=== PATIENT | male | born 1950 | race Hispanic/Latino ===

== ENCOUNTER 2019-02-05 18:01 | Inpatient (IN) | payer MEDICARE ==
--- NOTE | 2019-02-05 18:12 | Emergency Department Report ---
ED Neuro Deficit HPI - General Chief Complaint: Neuro Symptoms/Deficit Stated Complaint: CODE STROKE Time Seen by Provider: 02/05/19 18:01 Source: patient, family, EMS Mode of arrival: Stretcher Limitations: Altered Mental Status - History of Present Illness Initial Comments: Patient is a 68-year-old male that presents emergency room with complaints of confusion and slurred speech. Patient was found in his neighbor's yard down and Police Department called EMS. EMS brought the patient the emergency room for evaluation. Patient alert and oriented 1. Patient states he came to the hospital because of a fall. Patient states he is feeling fine. Patient denies headache. Patient denies shortness of breath or patient denies chest pain. Patient denies change in his speech. Sister states that he is speech is more slurred than usual. Patient moving all 4 extremities. -: Sudden Presenting Symptoms: Present: Unable to Speak Clearly, Altered Mental Status History of same: No Place: home Severity: severe Improves With: none Worsens With: none On Anticoagulants: No Context: sudden onset Associated Symptoms: confusion - Related Data Home Medications: Previous Rx's Medication Instructions Recorded Last Taken Type Bacitracin/Polymixin B [Polysporin] 1 applicatio TP BID #1 tube 01/21/16 Unknown Rx Ibuprofen [Motrin 600 MG tab] 600 mg PO Q8H PRN #25 tablet 01/21/16 Unknown Rx levoFLOXacin [Levaquin TAB] 500 mg PO QDAY #5 tablet 02/17/18 Unknown Rx Allergies/Adverse Reactions: Allergies Allergy/AdvReac Type Severity Reaction Status Date / Time No Known Allergies Allergy Verified 01/21/16 10:17 ED Review of Systems ROS: Stated complaint: CODE STROKE Other details as noted in HPI Constitutional: denies: chills, fever Eyes: denies: eye pain, eye discharge, vision change ENT: denies: ear pain, throat pain Respiratory: denies: cough, shortness of breath, wheezing Cardiovascular: denies: chest pain, palpitations Endocrine: no symptoms reported Gastrointestinal: denies: abdominal pain, nausea, diarrhea Genitourinary: denies: urgency, dysuria Musculoskeletal: denies: back pain, joint swelling, arthralgia Skin: denies: rash, lesions Neurological: denies: headache, weakness, paresthesias Psychiatric: denies: anxiety, depression Hematological/Lymphatic: denies: easy bleeding, easy bruising ED Past Medical Hx - Past Medical History Previous Medical History?: Yes Hx Hypertension: Yes Hx Diabetes: Yes - Surgical History Past Surgical History?: Yes Additional Surgical History: leg surgery - Family History Family history: no significant - Social History Smoking Status: Never Smoker Substance Use Type: None - Medications Home Medications: Home Medications Medication Instructions Recorded Confirmed Last Taken Type Bacitracin/Polymixin B [Polysporin] 1 applicatio TP BID #1 tube 01/21/16 Un known Rx Ibuprofen [Motrin 600 MG tab] 600 mg PO Q8H PRN #25 tablet 01/21/16 Unknown Rx levoFLOXacin [Levaquin TAB] 500 mg PO QDAY #5 tablet 02/17/18 Unknown Rx ED Neuro Physical Exam - General Limitations: Altered Mental Status General appearance: alert, in no apparent distress Suspected Stroke: No - Head Head exam: Present: atraumatic, normocephalic - Eye Eye exam: Present: normal appearance, PERRL Pupils: Present: normal accommodation - ENT ENT exam: Present: mucous membranes dry, other (abrasion on nose) - Neck Neck exam: Present: normal inspection - Respiratory Respiratory exam: Present: normal lung sounds bilaterally. Absent: respiratory distress, wheezes, rales - Cardiovascular Cardiovascular Exam: Present: regular rate, normal rhythm. Absent: systolic murmur, diastolic murmur, rubs, gallop - GI/Abdominal GI/Abdominal exam: Present: soft, normal bowel sounds. Absent: distended, tenderness, guarding - Rectal Rectal exam: Present: deferred - Extremities Exam Extremities exam: Present: normal inspection, full ROM - Back Exam Back exam: Present: normal inspection - Neurological Exam Neurological exam: Present: alert, altered - NIHSS Assessment Interval: Baseline 1a. Level of Consciousness: alert/keenly responsive 1b. LOC Questions: answers 1 question correctly 1c. LOC Commands: performs tasks correctly 2. Best Gaze: normal 3. Visual: no visual loss 4. Facial Palsy: normal symmetrical movement 5b. Motor Arm Right: no drift 5a. Motor Arm Left: no drift 6a. Motor Leg Left: no drift 6b. Motor Leg Right: no drift 7. Limb Ataxia: absent 8. Sensory: normal 9. Best Language: no aphasia 10. Dysarthria: normal 11. Extinction/Inattention: no abnormality Total Score: 1 Stroke Severity: Minor Stroke - Psychiatric Psychiatric exam: Present: normal affect, normal mood - Skin Skin exam: Present: warm, dry, intact, normal color. Absent: rash ED Course Vital Signs 02/05/19 02/05/19 02/05/19 18:34 18:37 20:00 Temperature 98.8 F Pulse Rate 74 71 Respiratory 15 15 15 Rate Blood Pressure 207/83 Blood Pressure 198/80 [Left] O2 Sat by Pulse 100 100 95 Oximetry 02/05/19 21:30 Temperature Pulse Rate 76 Respiratory 10 L Rate Blood Pressure 183/90 Blood Pressure [Left] O2 Sat by Pulse 97 Oximetry - Reevaluation(s) Reevaluation #1: Initial evaluation done. Patient sent immediately to CT. Code stroke initia sunday. 02/05/19 18:01 Reevaluation #2: Patient is currently oriented 2. Patient is disoriented to date. 02/05/19 18:50 Reevaluation #3: I discussed all results the patient. Discussed plan of care patient. Patient will be admitted to the hospitalist service. Patient agrees with plan of care and admission. 02/05/19 19:40 - Consultations Consultation #1: Neurologist saw the patient. 02/05/19 18:10 Neurologist recommends admission for encephalopathy and confusion. 02/05/19 18:40 Consultation #2: Hospitalist was consulted for admission. Hospitalist to admit patient. 02/05/19 19:40 - Lab Data Result diagrams: 02/05/19 18:25 02/05/19 18:25 Lab Results 02/05/19 02/05/19 02/05/19 Range/Units 18:25 18:25 18:25 WBC 12.0 H (4.5-11.0) K/mm3 RBC 4.31 (3.65-5.03) M/mm3 Hgb 12.6 (11.8-15.2) gm/dl Hct 36.6 (35.5-45.6) % MCV 85 (84-94) fl MCH 29 (28-32) pg MCHC 34 (32-34) % RDW 14.5 (13.2-15.2) % Plt Count 339 (140-440) K/mm3 Lymph % (Auto) 12.6 L (13.4-35.0) % Will % (Auto) 5.8 (0.0-7.3) % Eos % (Auto) 2.7 (0.0-4.3) % Baso % (Auto) 0.8 (0.0-1.8) % Lymph # 1.5 (1.2-5.4) K/mm3 Will # 0.7 (0.0-0.8) K/mm3 Eos # 0.3 (0.0-0.4) K/mm3 Baso # 0.1 (0.0-0.1) K/mm3 Seg Neutrophils % 78.1 H (40.0-70.0) % Seg Neutrophils # 9.4 H (1.8-7.7) K/mm3 PT 12.4 (12.2-14.9) Sec. INR 0.92 (0.87-1.13) APTT 26.8 (24.2-36.6) Sec. Thrombin Time (15.1-19.6) Sec. Sodium 138 (137-145) mmol/L Potassium 4.6 (3.6-5.0) mmol/L Chloride 100.6 (98-107) mmol/L Carbon Dioxide 23 (22-30) mmol/L Anion Gap 19 mmol/L BUN 25 H (9-20) mg/dL Creatinine 1.3 (0.8-1.5) mg/dL Estimated GFR 55 ml/min BUN/Creatinine Ratio 19 % Glucose 148 H (75-100) mg/dL POC Glucose (70-105) Calcium 9.7 (8.4-10.2) mg/dL Troponin T 0.011 (0.00-0.029) ng/mL 02/05/19 02/05/19 Range/Units 18:25 18:49 WBC (4.5-11.0) K/mm3 RBC (3.65-5.03) M/mm3 Hgb (11.8-15.2) gm/dl Hct (35.5-45.6) % MCV (84-94) fl MCH (28-32) pg MCHC (32-34) % RDW (13.2-15.2) % Plt Count (140-440) K/mm3 Lymph % (Auto) (13.4-35.0) % Will % (Auto) (0.0-7.3) % Eos % (Auto) (0.0-4.3) % Baso % (Auto) (0.0-1.8) % Lymph # (1.2-5.4) K/mm3 Will # (0.0-0.8) K/mm3 Eos # (0.0-0.4) K/mm3 Baso # (0.0-0.1) K/mm3 Seg Neutrophils % (40.0-70.0) % Seg Neutrophils # (1.8-7.7) K/mm3 PT (12.2-14.9) Sec. INR (0.87-1.13) APTT (24.2-36.6) Sec. Thrombin Time 14.2 L (15.1-19.6) Sec. Sodium (137-145) mmol/L Potassium (3.6-5.0) mmol/L Chloride (98-107) mmol/L Carbon Dioxide (22-30) mmol/L Anion Gap mmol/L BUN (9-20) mg/dL Creatinine (0.8-1.5) mg/dL Estimated GFR ml/min BUN/Creatinine Ratio % Glucose (75-100) mg/dL POC Glucose 128 H (70-105) Calcium (8.4-10.2) mg/dL Troponin T (0.00-0.029) ng/mL - EKG Data -: EKG Interpreted by Nm EKG shows normal: sinus rhythm, axis, intervals, QRS complexes, ST-T waves Rate: normal - Radiology Data Radiology results: report reviewed No acute findings on head CT. - Medical Decision Making Patient is a 68-year-old male that presents emergency room with complaints of altered mental status, confusion and fall and slurred speech. Patient was brought in by EMS and code stroke was initiated prior to arrival. Neurology saw the patient. Neurology states the patient does not require TPA. Neurology recommends admission for encephalopathy. Patient's labs unremarkable except for dehydration. Patient CT is negative for acute findings. Patient admitted to the hospitalist service. - Differential Diagnosis fall. Head injury. Abrasion. CVA. Confusion. AMS. Critical Care Time: Yes Critical care time in (mins) excluding proc time.: 35 Critical care attestation.: If time is entered above; I have spent that time in minutes in the direct care of this critically ill patient, excluding procedure time. Critical Care Time: 35 minutes ED Disposition Clinical Impression: Acute encephalopathy, Dehydration Altered mental status Qualifiers: Altered mental status type: unspecified Qualified Code(s): R41.82 - Altered mental status, unspecified Fall Qualifiers: Encounter type: initial encounter Qualified Code(s): W19.XXXA - Unspecified fall, initial encounter Nose abrasion Qualifiers: Encounter type: initial encounter Qualified Code(s): S00.31XA - Abrasion of nose, initial encounter Disposition: DC-09 OP ADMIT IP TO THIS HOSP Is pt being admited?: Yes Does the pt Need Aspirin: No Condition: Critical Time of Disposition: 19:42
--- NOTE | 2019-02-05 18:21 | Progress Note ---
Subjective Date of service: 02/05/19 Interval history: per stroke aslert made com,ments about CT and spoke to EMS see my dictated note recommend full TIA/Stroke w/u as hx of HTN and diabtes
--- NOTE | 2019-02-05 18:24 | Consultation ---
History of Present Illness History of present illness: [facility] Date of Service: 02/05/2019 18:04:20 Impression: RO Acute Ischemic Stroke AMS Comments: 1. Cardioembolic stroke 2. Small vessel disease/lacune 3. Thromboembolic, [id number] mechanism 4. Hypercoagulable state-related infarct 5. Thrombotic mechanism, large artery disease 6. Transient ischemic attack 7. Acute encephalopathy Metrics: Last Known Well: 02/05/2019 17:00:00 [facility] Notification Time: 02/05/2019 18:03:18 Arrival Time: 02/05/2019 18:01:00 Stamp Time: 02/05/2019 18:04:20 Time First Login Attempt: 02/05/2019 18:09:37 Video Start Time: 02/05/2019 18:09:37 Symptoms: AMS NIHSS Start Assessment Time: 02/05/2019 18:13:09 Patient is not a candidate for tPA. Patient was not deemed candidate for tPA thrombolytics because of I discussed the risk and benefits and alternatives to IV TPA and the patient's sister declined IV TPA at this time given the broad differential that could cause AMS. Video End Time: 02/05/2019 18:21:53 CT head was reviewed. Advanced imaging was not obtained as the presentation was not suggestive of Large Vessel Occlusive Disease. ER Physician notified of the decision on thrombolytics management on 02/05/2019 18:20:00 Our recommendations are outlined below. Recommendations: Activate Stroke Protocol Admission/Order Set Stroke/Telemetry Floor Neuro Checks Bedside Swallow Eval DVT Prophylaxis IV Fluids, Normal Saline Head of Bed Below 30 Degrees Euglycemia and Avoid Hyperthermia (PRN Acetaminophen) Initiate Aspirin Recommended Scan: MRI Head Without Contrast MRA Head Without Contrast Lipid Panel to Be Obtained, if Not Done in the Last Three Months Therapies: Physical Therapy, Occupational Therapy, Speech Therapy Assessment When Applicable Dysphaghia Screen: Swallow Evaluation, Bedside NPO Until Swallow Evaluation DVT prophylaxis: Choice of Primary Team Disposition: Follow up with Teleneurology Follow up Sign Out: Discussed with Emergency Department Provider History of Present Illness: Patient is a 59 year old Male. Patient was brought by EMS for symptoms of AMS 68 y/o man with h/o HTN, DM and hyperlipidemia who presents to the ED with AMS. Emergent telestroke consult requested. Patient sister at bedside. Last seen well at 1700. NIHSS 2 for disorientation. Patient is fluent and able to name objects, read and follow commands. No focal motor/sensory or visual deficits identfied. Case dsicussed with the patient's sister and ED attending at the bedside. Patient to be admitted for AMS work-up. CT head was reviewed. Examination: 1A: Level of Consciousness - Alert; keenly responsive + 0 1B: Ask Month and Age - Could Not Answer Either Question Correctly + 2 1C: Blink Eyes & Squeeze Hands - Performs Both Tasks + 0 2: Test Horizontal Extraocular Movements - Normal + 0 3: Test Visual Wahl - No Visual Loss + 0 4: Test Facial Palsy (Use Grimace if Obtunded) - Normal symmetry + 0 5A: Test Left Arm Motor Drift - No Drift for 10 Seconds + 0 5B: Test Right Arm Motor Drift - No Drift for 10 Seconds + 0 6A: Test Left Leg Motor Drift - No Drift for 5 Seconds + 0 6B: Test Right Leg Motor Drift - No Drift for 5 Seconds + 0 7: Test Limb Ataxia (FNF/Heel-Claros) - No Ataxia + 0 8: Test Sensation - Normal; No sensory loss + 0 9: Test Language/Aphasia - Normal; No aphasia + 0 10: Test Dysarthria - Normal + 0 11: Test Extinction/Inattention - No abnormality + 0 NIHSS Score: 2 Patient's sister was informed the Neurology Consult would happen via TeleHealth consult by way of interactive audio and video telecommunications and consented to receiving care in this manner. Due to the immediate potential for life-threatening deterioration due to underlying acute neurologic illness, I spent 15 minutes providing critical care. This time includes time for face to face visit via telemedicine, review of medical records, imaging studies and discussion of findings with providers, the patient and/or family. Dr Elmer [facility] Case [id number] Medications and Allergies Allergies Allergy/AdvReac Type Severity Reaction Status Date / Time No Known Allergies Allergy Verified 01/21/16 10:17 Home Medications Medication Instructions Recorded Confirmed Last Taken Type Bacitracin/Polymixin B [Polysporin] 1 applicatio TP BID #1 tube 01/21/16 Unknown Rx Ibuprofen [Motrin 600 MG tab] 600 mg PO Q8H PRN #25 tablet 01/21/16 Unknown Rx levoFLOXacin [Levaquin TAB] 500 mg PO QDAY #5 tablet 02/17/18 Unknown Rx
[2019-02-05 18:31] LABS: Basophils # (Auto) 0.1 K/mm3 (0.0-0.1); Basophils % (Auto) 0.8 % (0.0-1.8); Eosinophils # (Auto) 0.3 K/mm3 (0.0-0.4); Eosinophils % (Auto) 2.7 % (0.0-4.3); Hematocrit 36.6 % (35.5-45.6); Hemoglobin 12.6 gm/dl (11.8-15.2); Lymphocytes # (Auto) 1.5 K/mm3 (1.2-5.4); Lymphocytes % (Auto) 12.6 % (13.4-35.0); Mean Corpuscular HGB Conc 34 % (32-34); Mean Corpuscular Volume 85 fl (84-94); Monocytes # (Auto) 0.7 K/mm3 (0.0-0.8); Monocytes % (Auto) 5.8 % (0.0-7.3); Platelet Count 339 K/mm3 (140-440); Red Blood Count 4.31 M/mm3 (3.65-5.03); Red Cell Distribution Width 14.5 % (13.2-15.2)
--- NOTE | 2019-02-05 18:36 | Cat Scan Report ---
CT head/brain wo con INDICATION: neuro deficits <6hrs or sx present upon awakening. TECHNIQUE: Routine CT head without contrast. All CT scans at this location are performed using CT dos e reduction for ALARA by means of automated exposure control. COMPARISON: Head CT on 02/16/2018 FINDINGS: BRAIN / INTRACRANIAL CONTENTS: No acute hemorrhage, mass effect, midline shift, or hydrocephalus. No appreciable acute large territorial or lacunar infarct. No chronic infarct. Age-commensurate ventricu lar and cisternal/sulcal prominence. No significant change in appearance of the brain since prior exa m. ORBITS: No significant abnormality of visualized orbits. SINUSES / MASTOIDS: No significant abnormality of visualized sinuses and mastoid air cells. ADDITIONAL FINDINGS: None. IMPRESSION: 1. No acute intracranial abnormality. No adverse change from the prior exam. Findings discussed with Dr. Bolaños at 5:30 PM central time on 02/05/2019. Signer Name: Donis Laguerre MD Signed: 02/05/2019 6:31 PM Workstation Name: [id number]
[2019-02-05 18:42] LABS: INR 0.92 (0.87-1.13)
[2019-02-05 18:43] LABS: Partial Thromboplastin Time 26.8 Sec. (24.2-36.6)
[2019-02-05 18:45] LABS: Calcium 9.7 mg/dL (8.4-10.2)
[2019-02-05] MEDS ORDERED: MORPHINE 2 MG/1 ML INJ IV PRN (21:47)
[2019-02-05] MEDS ORDERED: ACETAMINOPHEN 325 MG TAB PO PRN (21:47)
[2019-02-05] MEDS ORDERED: DEXTROSE 50% IN WATER (25GM) 50 ML SYRINGE IV PRN ×2 (21:47→21:52)
[2019-02-05] MEDS ORDERED: ONDANSETRON 4 MG/2 ML INJ IV PRN (21:47)
[2019-02-05] MEDS ORDERED: MAGNESIUM HYDROXIDE (MOM) ORAL LIQD UDC PO PRN (21:47)
[2019-02-05] MEDS ORDERED: SODIUM CHLORIDE 0.9% 1000 ML 1,000 ML IV SCH (22:00)
[2019-02-05] MEDS ORDERED: hydrALAZINE 20 MG/1 ML INJ IV ONE (22:11)
[2019-02-05] MEDS ORDERED: hydrALAZINE 20 MG/1 ML INJ ONE (22:16)
[2019-02-05] MEDS: INSULIN REGULAR, HUMAN 100 UNITS/1 ML SUB-Q SCH (22:21)
--- NOTE | 2019-02-05 22:32 | History and Physical Report ---
History of Present Illness Date of examination: 02/05/19 Date of admission: 02/05/19 21:25 Chief complaint: Altered mental status Fall History of present illness: Patient is a 68-year-old male was brought into the emergency room today because of a change in mental status and slurred speech. He was also said to have had generalized weakness. Patient was found in the neighbors yard on the ground and brought to the ER by the EMS. Patient indicates that he had a fall but denies any dizziness or blurry vision. He has been more alert and oriented since arrival in the emergency room. Sister who is by the bedside indicates that patient's speech has been a little slurred. She also indicates that patient has arthritis in his knees and affects his ambulation. Upon arrival in the emergency room patient was evaluated by telemetry neurology was recommended that patient be admitted for further evaluation for encephalopathy and also to rule out CVA. His lab work indicates possible dehydration. Past History Past Medical History: diabetes, hypertension, hyperlipidemia Past Surgical History: Other (Left knee surgery in the past) Social history: no significant social history Family history: no significant family history Medications and Allergies Allergies Allergy/AdvReac Type Severity Reaction Status Date / Time No Known Allergies Allergy Verified 01/21/16 10:17 Home Medications Medication Instructions Recorded Confirmed Last Taken Type Bacitracin/Polymixin B [Polysporin] 1 applicatio TP BID #1 tube 01/21/16 02/06/19 Unknown Rx Ibuprofen [Motrin 600 MG tab] 600 mg PO Q8H PRN #25 tablet 01/21/16 02/06/19 Unknown Rx Active Meds: Active Medications Acetaminophen (Tylenol) 650 mg PO Q4H PRN PRN Reason: Pain MILD(1-3)/Fever >100.5/ROSA Aspirin (Aspirin) 325 mg PO QDAY MARTHA Dextrose (D50w (25gm) Syringe) 0 ml IV Q30MIN PRN; Protocol PRN Reason: Hypoglycemia Heparin Sodium (Porcine) (Heparin) 5,000 unit SUB-Q Q8HR MARTHA Sodium Chloride (Nacl 0.9% 1000 Ml) 1,000 mls @ 125 mls/hr IV DIRECT MARTHA Insulin Human Regular (Humulin R) 0 units SUB-Q ACHS MARTHA; Protocol Last Admin: 02/05/19 22:21 Dose: Not Given Documented by: Magnesium Hydroxide (Milk Of Magnesia) 30 ml PO Q4H PRN PRN Reason: Constipation Morphine Sulfate (Morphine) 2 mg IV Q4H PRN PRN Reason: Pain, Moderate (4-6) Ondansetron HCl (Zofran) 4 mg IV Q8H PRN PRN Reason: Nausea And Vomiting Sodium Chloride (Sodium Chloride Flush Syringe 10 Ml) 10 ml IV BID MARTHA Last Admin: 02/05/19 22:17 Dose: 10 ml Documented by: Sodium Chloride (Sodium Chloride Flush Syringe 10 Ml) 10 ml IV PRN PRN PRN Reason: LINE FLUSH Review of Systems Musculoskeletal: arthritis Exam - Constitutional Vitals: Temp Pulse Resp BP Pulse Ox 98.8 F 71 16 182/90 93 02/05/19 18:34 02/05/19 22:17 02/05/19 22:00 02/05/19 22:17 02/05/19 22:00 General appearance: Present: no acute distress, well-nourished - EENT Eyes: Present: PERRL, EOM intact ENT: hearing intact, clear oral mucosa, dentition normal, other (Abrasion over bridge of nose) - Neck Neck: Present: supple, normal ROM - Respiratory Respiratory: bilateral: CTA - Cardiovascular Rhythm: regular Heart Sounds: Present: S1 & S2 - Extremities Extremities: no ischemia, pulses intact, pulses symmetrical, No edema Extremity abnormal: other (Abrasion over the left knee) Peripheral Pulses: within normal limits - Abdominal General gastrointestinal: Present: soft, non-tender, non-distended - Integumentary Integumentary: Present: clear, warm, dry - Musculoskeletal Musculoskeletal: strength equal bilaterally - Psychiatric Psychiatric: appropriate mood/affect, intact judgment & insight, cooperative - Neurologic Neurologic: CNII-XII intact, moves all extremities Results - Labs CBC & Chem 7: 02/05/19 18:25 02/05/19 18:25 Labs: Abnormal lab results 02/05/19 02/05/19 02/05/19 Range/Units 18:25 18:25 18:25 WBC 12.0 H (4.5-11.0) K/mm3 Lymph % (Auto) 12.6 L (13.4-35.0) % Seg Neutrophils % 78.1 H (40.0-70.0) % Seg Neutrophils # 9.4 H (1.8-7.7) K/mm3 Thrombin Time 14.2 L (15.1-19.6) Sec. BUN 25 H (9-20) mg/dL Glucose 148 H (75-100) mg/dL POC Glucose (70-105) 02/05/19 Range/Units 18:49 WBC (4.5-11.0) K/mm3 Lymph % (Auto) (13.4-35.0) % Seg Neutrophils % (40.0-70.0) % Seg Neutrophils # (1.8-7.7) K/mm3 Thrombin Time (15.1-19.6) Sec. BUN (9-20) mg/dL Glucose (75-100) mg/dL POC Glucose 128 H (70-105) Assessment and Plan - Patient Problems (1) Acute encephalopathy Current Visit: Yes Status: Acute Plan to address problem: Possibly secondary to dehydration. Will monitor mental status. Patient has been placed on IV fluid. (2) Altered mental status Current Visit: Yes Status: Acute Qualifiers: Altered mental status type: unspecified Qualified Code(s): R41.82 - Altered mental status, unspecified Plan to address problem: Etiology is unclear. However will rule out for CVA. We will request neurology follow-up. Patient has been more alert and oriented since arrival in the ER (3) Dehydration Current Visit: Yes Status: Acute Plan to address problem: Patient has been placed on IV fluid. Will monitor inputs and outputs and also monitor labs (4) Fall Current Visit: Yes Status: Acute Qualifiers: Encounter type: initial encounter Qualified Code(s): W19.XXXA - Unspecified fall, initial encounter Plan to address problem: He has been placed on fall precautions (5) DVT prophylaxis Current Visit: Yes Status: Acute Plan to address problem: Patient placed on subcutaneous heparin. (6) Full code status Current Visit: Yes Status: Acute
[2019-02-06] MEDS: SODIUM CHLORIDE 0.9% 1000 ML 1,000 ML IV SCH (01:06)
[2019-02-06] MEDS: hydrALAZINE 20 MG/1 ML INJ IV PRN ×2 (01:07→20:12)
--- NOTE | 2019-02-06 01:49 | Consultation ---
HISTORY OF PRESENT ILLNESS: This is a 68-year-old white male, date of is 1950, that presents to the Emergency Room of [facility] as an emergency admission. The patient was seen for stroke alert. The patient presented to the hospital, obtained information from two mine laborer from [facility]. He apparently had been out in the yard wandering around, was noted to be slightly hypothermic on arrival, temperature 95 degrees. His blood sugar was 119. He had a history of hypertension, diabetes. The who had called and was not present at the time I saw the patient to obtain further history from. The patient himself was hypoverbal. This is complicated by the fact that he has a hearing loss in his right ear and is mostly deaf in his left ear and difficulty following commands. What was immediately obvious was the patient was extremely confused, had difficulty in following very simple commands such as moving from the stretcher to the CT scan table. He had apraxia of limb movements. He had obvious weakness of his right lower extremity, but he is fully alert. No facial asymmetry. Beam Warper strength is equal. Motor tone in the upper extremities symmetrical. Cranial nerves 2-12 with the exception of hearing were intact. Pupils were briskly reactive to light. Speech could not be tested given the issue of whether he may in fact be a mute deaf and I cannot be sure of what his baseline speech pattern is and would rather not comment on his speech pattern without the who knows him better providing some background as to his level of language difficulty given the fact he has profound deafness. IMPRESSION: Likely transient ischemic attack versus stroke. What is complicated about this gentleman is he was hypothermic. He may be slightly encephalopathic as well related to the diabetes. His blood pressure was elevated on admission at 200/110. I do not find his exam to be very easy to document because he has profound hearing loss and may have a preexisting motor control problem based on other factors that cannot be commented on now. From the CT scan point of view, he has moderate cortical atrophy noted frontally. Ventricular system is very slightly enlarged. He has faint calcifications in the globus pallidus bilaterally. He has a very dense calcification of both vertebral arteries at the base of the cranial vault, but the basilar artery is free of these calcifications. I do not see any areas of edema, bleed or acute stroke. There is some suggestion he may have had some cortical atrophy noted over the right temporal lobe and it is curious that maybe this is related to his hearing problem. Difficult to comment on other factors of the CT except that there do not appear to be an acute bleed or any acute lesions. We will recommend further stroke workup with checking for atrial fibrillation, control his blood pressure. Further assess the patient's condition post admission. JOB# [id number] SCOTTY/VINOD
[2019-02-06 04:52] LABS: Basophils # (Auto) 0.1 K/mm3 (0.0-0.1); Basophils % (Auto) 0.7 % (0.0-1.8); Eosinophils # (Auto) 0.3 K/mm3 (0.0-0.4); Eosinophils % (Auto) 2.2 % (0.0-4.3); Hematocrit 32.7 % (35.5-45.6); Hemoglobin 11.3 gm/dl (11.8-15.2); Lymphocytes # (Auto) 1.8 K/mm3 (1.2-5.4); Lymphocytes % (Auto) 13.5 % (13.4-35.0); Mean Corpuscular HGB Conc 35 % (32-34); Mean Corpuscular Volume 84 fl (84-94); Monocytes # (Auto) 0.9 K/mm3 (0.0-0.8); Monocytes % (Auto) 7.1 % (0.0-7.3); Platelet Count 343 K/mm3 (140-440); Red Blood Count 3.89 M/mm3 (3.65-5.03); Red Cell Distribution Width 14.3 % (13.2-15.2)
[2019-02-06 05:04] LABS: INR 0.92 (0.87-1.13)
[2019-02-06 05:05] LABS: BUN/Creatinine Ratio 18; Blood Urea Nitrogen 22 mg/dL (9-20); Hemolysis Index 0; Partial Thromboplastin Time 49.6 Sec. (24.2-36.6)
--- NOTE | 2019-02-06 07:34 | Progress Note ---
Subjective Date of service: 02/06/19 Interval history: see my code stroke note from prior evening MRI today and monitor the hearing loss pre=existing problem on admission patient profoundly encephalopathic Objective - Vital Sign Vital Signs - 12hr 02/05/19 02/05/19 02/05/19 20:00 21:30 22:00 Temperature Pulse Rate 71 76 73 Respiratory 15 10 L 16 Rate Blood Pressure 207/83 183/90 182/90 O2 Sat by Pulse 95 97 93 Oximetry 02/05/19 02/05/19 02/05/19 22:17 22:30 23:09 Temperature Pulse Rate 71 79 79 Respiratory 13 Rate Blood Pressure 182/90 156/83 O2 Sat by Pulse 96 Oximetry 02/05/19 02/05/19 02/06/19 23:23 23:30 00:39 Temperature 98.2 F Pulse Rate 76 Respiratory 16 20 Rate Blood Pressure 179/91 O2 Sat by Pulse 96 97 Oximetry 02/06/19 07:15 Temperature 97.8 F Pulse Rate 78 Respiratory 16 Rate Blood Pressure 150/69 O2 Sat by Pulse 95 Oximetry - Laboratory Findings CBC and BMP: 02/06/19 04:38 02/06/19 04:38 Abnormal Lab Findings: Abnormal Labs 02/05/19 02/05/19 02/05/19 18:25 18:25 18:25 WBC 12.0 H Hgb Hct MCHC Lymph % (Auto) 12.6 L [place] # Seg Neutrophils % 78.1 H Seg Neutrophils # 9.4 H APTT Thrombin Time 14.2 L Carbon Dioxide BUN 25 H Glucose 148 H POC Glucose 02/05/19 02/06/19 02/06/19 18:49 04:38 04:38 WBC 13.1 H Hgb 11.3 L Hct 32.7 L MCHC 35 H Lymph % (Auto) [place] # 0.9 H Seg Neutrophils % 76.5 H Seg Neutrophils # 10.0 H APTT 49.6 H Thrombin Time Carbon Dioxide BUN Glucose POC Glucose 128 H 02/06/19 04:38 WBC Hgb Hct MCHC Lymph % (Auto) [place] # Seg Neutrophils % Seg Neutrophils # APTT Thrombin Time Carbon Dioxide 21 L BUN 22 H Glucose 145 H POC Glucose
[2019-02-06] MEDS: HEPARIN 5,000 UNIT/1 ML VIAL SUB-Q SCH ×3 (07:47→22:14)
[2019-02-06] MEDS: INSULIN REGULAR, HUMAN 100 UNITS/1 ML SUB-Q SCH ×4 (08:31→21:56)
[2019-02-06] MEDS: ASPIRIN 325 MG TAB PO SCH (10:31)
--- NOTE | 2019-02-06 11:34 | Magnetic Resonance Report ---
MRI BRAIN WITHOUT CONTRAST INDICATION / CLINICAL INFORMATION: seizure. Altered mental status, slurred speech TECHNIQUE: Multisequence, multiplanar images were obtained. COMPARISON: CT head dated 02/05/2019 FINDINGS: CEREBRAL and CEREBELLAR HEMISPHERES: Mild diffuse cortical volume loss and minimal nonspecific chroni c periventricular white matter changes are identified. No evidence of mass or mass effect. No midlin e shift. No acute hemorrhage. No diffusion restriction to suggest acute infarct. No extra-axial fl uid collection. No chronic infarct is appreciated. The medial temporal lobes are symmetric and unrem arkable. VENTRICLES: Normal in size and configuration for age. VISUALIZED ORBITS: No significant abnormality. VISUALIZED PARANASAL SINUSES: No significant abnormality. ADDITIONAL FINDINGS: None. IMPRESSION: No acute intracranial abnormality is identified. Mild volume loss and chronic white matter changes. Signer Name: Pardeep Faustin Jr, MD Signed: 02/06/2019 11:30 AM Workstation Name: [id number]
--- NOTE | 2019-02-06 11:36 | Vascular Lab Report ---
BILATERAL CAROTID DOPPLER ULTRASOUND INDICATION : CVA, seizure, slurred speech, history of encephalopathy, hypertension and diabetes. TECHNIQUE: Grayscale and color Doppler imaging performed through the neck. COMPARISON: None FINDINGS: Right: There is no significant atherosclerotic disease. Peak systolic velocity in the CCA is 114 cm /s with end-diastolic velocity of 24 cm/s. Peak systolic velocity in the proximal ICA is 96 cm/s with end-diastolic velocity of 18 cm/s. ICA to CCA ratio is less than 2. There is antegrade flow in the ECA and the vertebral artery. Left: There is no significant atherosclerotic disease. Peak systolic velocity in the CCA is 123 cm/s with end-diastolic velocity of 25 cm/s. Peak systolic velocity in the proximal ICA is 106 cm/s with e nd-diastolic velocity of 21 cm/s. ICA to CCA ratio is less than 2. There is antegrade flow in the EC A and the vertebral artery. IMPRESSION: No hemodynamically significant stenosis by NASCET criteria. There is less than 50% lumina l narrowing throughout both carotid systems. Signer Name: Pardeep Faustin Jr, MD Signed: 02/06/2019 11:31 AM Workstation Name: [id number]
[2019-02-06] MEDS ORDERED: FLU VACC QUAD 2019-20 (3 YR UP)/PF 60 MCG/0.5 ML SYRINGE IM ONE (12:00)
--- NOTE | 2019-02-06 12:54 | Progress Note ---
Assessment and Plan Assessment and plan: CT head without contrast; no acute intracranial abnormality nodulous changes from the pack exam MRI brain; no acute intracranial abnormality mild loss of volume Chronic white matter changes Carotid Doppler; no hemodynamically significant stenosis less than 50% stenosis -- Acute encephalopathy Current Visit: Yes Status: Acute : Possibly secondary to dehydration. Will monitor mental status. Patient has been placed on IV fluid. --Altered mental status Current Visit: Yes Status: Acute Etiology is unclear. However will rule out for CVA. We will request neurology follow-up. Patient has been more alert and oriented since arrival in the ER --Dehydration Current Visit: Yes Status: Acute Patient has been placed on IV fluid. Will monitor inputs and outputs and also monitor labs --Fall Current Visit: Yes Status: Acute He has been placed on fall precautions -- DVT prophylaxis Current Visit: Yes Status: Acute Patient placed on subcutaneous heparin. --Full code status Current Visit: Yes Status: Acute Plan of care reviewed with the patient and his nurse History Interval history: Patient seen and examined medical records reviewed Patient complains of generalized weakness Lethargic and sometimes confused Vital signs noted Neuro work-up is in progress Hospitalist Physical - Constitutional Vitals: Temp Pulse Resp BP Pulse Ox 97.8 F 78 16 150/69 95 02/06/19 07:15 02/06/19 07:15 02/06/19 07:15 02/06/19 07:15 02/06/19 07:15 General appearance: Present: no acute distress, well-nourished - EENT Eyes: Present: PERRL, EOM intact - Neck Neck: Present: supple, normal ROM - Respiratory Respiratory effort: normal Respiratory: bilateral: diminished, negative: rales, rhonchi, wheezing - Cardiovascular Rhythm: regular Heart Sounds: Present: S1 & S2 - Extremities Extremities: no ischemia, No edema - Abdominal General gastrointestinal: soft, non-tender, non-distended, normal bowel sounds - Integumentary Integumentary: Present: clear, warm - Psychiatric Psychiatric: appropriate mood/affect, cooperative - Neurologic Neurologic: moves all extremities, other (Residual weakness) Results - Labs CBC & Chem 7: 02/06/19 04:38 02/06/19 04:38 Labs: Laboratory Last Values WBC 13.1 K/mm3 (4.5-11.0) H 02/06/19 04:38 RBC 3.89 M/mm3 (3.65-5.03) 02/06/19 04:38 Hgb 11.3 gm/dl (11.8-15.2) L 02/06/19 04:38 Hct 32.7 % (35.5-45.6) L 02/06/19 04:38 MCV 84 fl (84-94) 02/06/19 04:38 MCH 29 pg (28-32) 02/06/19 04:38 MCHC 35 % (32-34) H 02/06/19 04:38 RDW 14.3 % (13.2-15.2) 02/06/19 04:38 Plt Count 343 K/mm3 (140-440) 02/06/19 04:38 Lymph % (Auto) 13.5 % (13.4-35.0) 02/06/19 04:38 [place] % (Auto) 7.1 % (0.0-7.3) 02/06/19 04:38 Eos % (Auto) 2.2 % (0.0-4.3) 02/06/19 04:38 Baso % (Auto) 0.7 % (0.0-1.8) 02/06/19 04:38 Lymph # 1.8 K/mm3 (1.2-5.4) 02/06/19 04:38 [place] # 0.9 K/mm3 (0.0-0.8) H 02/06/19 04:38 Eos # 0.3 K/mm3 (0.0-0.4) 02/06/19 04:38 Baso # 0.1 K/mm3 (0.0-0.1) 02/06/19 04:38 Seg Neutrophils % 76.5 % (40.0-70.0) H 02/06/19 04:38 Seg Neutrophils # 10.0 K/mm3 (1.8-7.7) H 02/06/19 04:38 PT 12.5 Sec. (12.2-14.9) 02/06/19 04:38 INR 0.92 (0.87-1.13) 02/06/19 04:38 APTT 49.6 Sec. (24.2-36.6) H 02/06/19 04:38 Thrombin Time 14.2 Sec. (15.1-19.6) L 02/05/19 18:25 Sodium 137 mmol/L (137-145) 02/06/19 04:38 Potassium 3.8 mmol/L (3.6-5.0) 02/06/19 04:38 Chloride 104.0 mmol/L (98-107) 02/06/19 04:38 Carbon Dioxide 21 mmol/L (22-30) L 02/06/19 04:38 Anion Gap 16 mmol/L 02/06/19 04:38 BUN 22 mg/dL (9-20) H 02/06/19 04:38 Creatinine 1.2 mg/dL (0.8-1.5) 02/06/19 04:38 Estimated GFR > 60 ml/min 02/06/19 04:38 BUN/Creatinine Ratio 18 % 02/06/19 04:38 Glucose 145 mg/dL (75-100) H 02/06/19 04:38 POC Glucose 104 (70-105) 02/05/19 22:30 Calcium 9.0 mg/dL (8.4-10.2) 02/06/19 04:38 Troponin T 0.011 ng/mL (0.00-0.029) 02/05/19 18:25 Active Medications - Current Medications Current Medications: Generic Name Dose Route Start Last Admin Trade Name Freq PRN Reason Stop Dose Admin Acetaminophen 650 mg 02/05/19 21:47 02/06/19 00:39 Tylenol PO 650 mg Q4H PRN Administration Pain MILD(1-3)/Fever >100.5/ROSA Aspirin 325 mg 02/06/19 10:00 Aspirin PO QDAY MARTHA Dextrose 0 ml 02/05/19 21:52 D50w (25gm) Syringe IV Q30MIN PRN Hypoglycemia Protocol Heparin Sodium (Porcine) 5,000 unit 02/06/19 06:00 02/06/19 07:47 Heparin SUB-Q 5,000 unit Q8HR MARTHA Administration Hydralazine HCl 10 mg 02/06/19 02:00 02/06/19 01:07 Apresoline IV 10 mg Q4H PRN Administration GIVE FOR SBP>160 Sodium Chloride 1,000 mls @ 75 mls/hr 02/06/19 00:30 02/06/19 01:06 Nacl 0.9% 1000 Ml IV 75 mls/hr DIRECT MARTHA Administration Insulin Human Regular 0 units 02/05/19 22:00 02/05/19 22:21 Humulin R SUB-Q Not Given ACHS [facility] Protocol Magnesium Hydroxide 30 ml 02/05/19 21:47 Milk Of Magnesia PO Q4H PRN Constipation Morphine Sulfate 2 mg 02/05/19 21:47 Morphine IV Q4H PRN Pain, Moderate (4-6) Ondansetron HCl 4 mg 02/05/19 21:47 Zofran IV Q8H PRN Nausea And Vomiting Sodium Chloride 10 ml 02/05/19 22:00 02/05/19 22:17 Sodium Chloride Flush Syringe 10 Ml IV 10 ml BID MARTHA Administration Sodium Chloride 10 ml 02/05/19 21:47 Sodium Chloride Flush Syringe 10 Ml IV PRN PRN LINE FLUSH Nutrition/Malnutrition Assess - Dietary Evaluation Nutrition/Malnutrition Findings: Nutrition Notes Start: 02/06/19 11:46 Freq: Status: Active Protocol: Document 02/06/19 11:46 CT (Rec: 02/06/19 11:52 CT [id number]) Co-Sign 02/06/19 11:46 LP Nutrition Notes Need for Assessment generated from: MD Order,Education Initial or Follow up Assessment Current Diagnosis Diabetes,Hypertension, Hyperlipidemia Other Pertinent Diagnosis AMS, fall, acute encephalopathy Current Diet cardiac/consistent CHO Labs/Tests BUN 22 Glu 145 Pertinent Medications NS 75 ml/hr Humulin Height 5 ft 4 in Weight 76.9 kg Usual Body Weight 72.575 kg [place] Body Weight (kg) 59.09 BMI 29.0 Intake Prior to Admission Good Weight Status Obese Subjective/Other Information Consult for diet education on cardiac/consistent CHO. Pt was not in room at time of visit. Pt family member gave report of information and accepted the diet education since she does most of the cooking for the pt. Pt family member stated he was eting well [employer] and that he has not had any wt loss. Burn Absent Trauma Absent GI Symptoms None Food Allergy No Minimum of two criteria No #1 Nutrition Diagnosis Food and nutrition-related knowledge deficit Etiology no previous knowledge on cardiac/consistent CHO diet As Evidenced by Signs and Symptoms Pt family member acceptance of education and handout Is patient on ventilator? No Is Patient Ambulatory and/or Out of Bed Yes REE-([place]-St. Jeor-ambulatory/OOB) [ 1878.500 NUTR.MSJOOB] Kcal/Kg value to use for calculation 20 Approximate Energy Requirements Using 1538 kcal/Kg Calculation Used for Recommendations Kcal/kg Additional Notes Protein needs: 68-82 g/kg/day (1-1.2 g/kg/day AdBW 67.95 kg) Fluid needs: 1 ml/kcal Nutrition Intervention Change Diet Order: Continue current Teaching Recipient Family Learning Readiness Good Teaching Methods Discussion,Handout Response to Teaching Verbalize understanding Education Handouts Provided Cardiac/Consistent CHO diet Barriers to Learning No Barriers RD phone number provided Yes Patient aware of follow up options Yes Goal #1 Meet >75% of energy and protein needs Anticipated Discharge Needs: cardiac/consistent CHO Follow-Up By: 02/10/19 Additional Comments Follow up for PO intakes and ONS need, assessment needs
[2019-02-06 15:19] LABS: Chol/HDL Ratio 4.75 %
--- NOTE | 2019-02-06 18:14 | Progress Note ---
Assessment and Plan This is a 68 YO M with encephalopathy as stated previously. Etiology not clear REcommend: ordered UA, ammonia, B12, EEG Medications reviewed, nothing that should cause encephalopathy Avoid sedatives MRI Brain reviewed and is without acute pathology Can do a trial of Zyprexa 2.5 mg now and q8-12 PRN for agitation, can use Haldol or geodon if not taking PO. Have Neurology follow up with him next week to follow up on the test results and make additional recomendations if needed. Subjective Date of service: 02/06/19 Interval history: Asked by Dr. Cooper to see Mr. Garland for additional recommendations. Pt seen by teleneuro and neuro on the ground. Objective - Vital Sign Vital Signs - 12hr 02/06/19 02/06/19 07:15 10:00 Temperature 97.8 F Pulse Rate 78 Respiratory 16 Rate Blood Pressure 150/69 O2 Sat by Pulse 95 95 Oximetry - General Apperance Constitutional: comfortable - EENT EENT: mucous membranes moist - Respiratory Respiratory: lungs clear - Cardiovascular Cardiovascular: regular rate - Gastrointestinal Gastrointestinal: normoactive bowel sounds - Integumentary Integumentary: normal - Neurologic Cranial nerve examination: PERRL, EOMI, face symmetric, tongue midline Detailed motor examination: grossly full strength in - Laboratory Findings CBC and BMP: 02/06/19 04:38 02/06/19 04:38 Abnormal Lab Findings: Abnormal Labs 02/05/19 02/05/19 02/05/19 18:25 18:25 18:25 WBC 12.0 H Hgb Hct MCHC Lymph % (Auto) 12.6 L [place] # Seg Neutrophils % 78.1 H Seg Neutrophils # 9.4 H APTT Thrombin Time 14.2 L Carbon Dioxide BUN 25 H Glucose 148 H POC Glucose Triglycerides 02/05/19 02/06/19 02/06/19 18:49 04:38 04:38 WBC 13.1 H Hgb 11.3 L Hct 32.7 L MCHC 35 H Lymph % (Auto) [place] # 0.9 H Seg Neutrophils % 76.5 H Seg Neutrophils # 10.0 H APTT 49.6 H Thrombin Time Carbon Dioxide BUN Glucose POC Glucose 128 H Triglycerides 02/06/19 02/06/19 02/06/19 04:38 12:34 17:19 WBC Hgb Hct MCHC Lymph % (Auto) [place] # Seg Neutrophils % Seg Neutrophils # APTT Thrombin Time Carbon Dioxide 21 L BUN 22 H Glucose 145 H POC Glucose 116 H Triglycerides 274 H
--- NOTE | 2019-02-06 18:46 | Progress Note ---
Subjective Date of service: 02/06/19 Interval history: went over the MRI and my question is whether there is mild area of ischemia in the left anterior tempotal lobe seems this is accurate but radiology did not agree will discuss with Dr. Faustin saturday recomemend carotid ultrasound Objective - Vital Sign Vital Signs - 12hr 02/06/19 02/06/19 02/06/19 07:00 07:15 10:00 Temperature 97.8 F Pulse Rate 79 78 Respiratory 16 Rate Blood Pressure 150/69 O2 Sat by Pulse 95 95 Oximetry - Laboratory Findings CBC and BMP: 02/06/19 04:38 02/06/19 04:38 Abnormal Lab Findings: Abnormal Labs 02/05/19 02/05/19 02/05/19 18:25 18:25 18:25 WBC 12.0 H Hgb Hct MCHC Lymph % (Auto) 12.6 L [place] # Seg Neutrophils % 78.1 H Seg Neutrophils # 9.4 H APTT Thrombin Time 14.2 L Carbon Dioxide BUN 25 H Glucose 148 H POC Glucose Triglycerides 02/05/19 02/06/19 02/06/19 18:49 04:38 04:38 WBC 13.1 H Hgb 11.3 L Hct 32.7 L MCHC 35 H Lymph % (Auto) [place] # 0.9 H Seg Neutrophils % 76.5 H Seg Neutrophils # 10.0 H APTT 49.6 H Thrombin Time Carbon Dioxide BUN Glucose POC Glucose 128 H Triglycerides 02/06/19 02/06/19 02/06/19 04:38 12:34 17:19 WBC Hgb Hct MCHC Lymph % (Auto) [place] # Seg Neutrophils % Seg Neutrophils # APTT Thrombin Time Carbon Dioxide 21 L BUN 22 H Glucose 145 H POC Glucose 116 H Triglycerides 274 H
[2019-02-07] MEDS: HEPARIN 5,000 UNIT/1 ML VIAL SUB-Q SCH ×3 (05:25→22:55)
[2019-02-07] MEDS: INSULIN REGULAR, HUMAN 100 UNITS/1 ML SUB-Q SCH ×3 (08:00→17:00)
[2019-02-07] MEDS: ASPIRIN 325 MG TAB PO SCH (10:32)
[2019-02-07] MEDS: SODIUM CHLORIDE 0.9% 1000 ML 1,000 ML IV SCH (10:37)
[2019-02-07] MEDS: hydrALAZINE 20 MG/1 ML INJ IV PRN (12:15)
[2019-02-07 16:05] LABS: Bilirubin,Urine NEG (Negative); Blood,Urine NEG (Negative); Color,Urine Yellow (Yellow); Urobilinogen,Urine < 2.0 mg/dL (<2.0)
--- NOTE | 2019-02-07 18:59 | Progress Note ---
Assessment and Plan Assessment and plan: CT head without contrast; no acute intracranial abnormality . No change from the previous exam MRI brain; no acute intracranial abnormality mild loss of volume Chronic white matter changes Carotid Doppler; no hemodynamically significant stenosis less than 50% stenosis -- Acute versus acute on chronic metabolic encephalopathy Current Visit: Yes Status: Acute : Patient has recurrent episodes of confusion and encephalopathy in the past Was admitted with similar symptoms 1 year ago, sister reports That he acts confused agitated with poor oral intake frequently MRI negative, physical therapy, possible placement --Altered mental status Current Visit: Yes Status: Acute Etiology is unclear. CT head no acute abnormality MRI brain no acute intracranial abnormality, mild loss of volume --Dehydration/poor oral intake Current Visit: Yes Status: Acute Patient has been placed on IV fluid. Will monitor inputs and outputs and also monitor labs --h/o recurrent Falls Current Visit: Yes Status: Acute He has been placed on fall precautions -- DVT prophylaxis Current Visit: Yes Status: Acute Patient placed on subcutaneous heparin. --Full code status Current Visit: Yes Status: Acute Plan of care reviewed with the patient and his nurse PT/OT, Possible placement when stable History Interval history: Patient seen and examined medical records reviewed Patient has intermittent confusion Today he is more alert responding to simple questions appropriately Refusing to eat at times, confused agitated requiring restraints Patient's sister at the bedside Hospitalist Physical - Constitutional Vitals: Temp Pulse Resp BP Pulse Ox 98.3 F 62 18 155/77 90 02/07/19 16:33 02/07/19 16:33 02/07/19 16:33 02/07/19 16:33 02/07/19 16:33 General appearance: Present: no acute distress, well-nourished, other (confused) - EENT Eyes: Present: PERRL, EOM intact - Neck Neck: Present: supple, normal ROM - Respiratory Respiratory effort: normal Respiratory: bilateral: diminished, negative: rales, rhonchi, wheezing - Cardiovascular Rhythm: regular Heart Sounds: Present: S1 & S2 - Extremities Extremities: no ischemia, No edema - Abdominal General gastrointestinal: soft, non-tender, non-distended, normal bowel sounds - Integumentary Integumentary: Present: clear, warm - Psychiatric Psychiatric: agitated, other (Confused) - Neurologic Neurologic: moves all extremities Results - Labs CBC & Chem 7: 02/06/19 04:38 02/06/19 04:38 Labs: Laboratory Last Values WBC 13.1 K/mm3 (4.5-11.0) H 02/06/19 04:38 RBC 3.89 M/mm3 (3.65-5.03) 02/06/19 04:38 Hgb 11.3 gm/dl (11.8-15.2) L 02/06/19 04:38 Hct 32.7 % (35.5-45.6) L 02/06/19 04:38 MCV 84 fl (84-94) 02/06/19 04:38 MCH 29 pg (28-32) 02/06/19 04:38 MCHC 35 % (32-34) H 02/06/19 04:38 RDW 14.3 % (13.2-15.2) 02/06/19 04:38 Plt Count 343 K/mm3 (140-440) 02/06/19 04:38 Lymph % (Auto) 13.5 % (13.4-35.0) 02/06/19 04:38 [place] % (Auto) 7.1 % (0.0-7.3) 02/06/19 04:38 Eos % (Auto) 2.2 % (0.0-4.3) 02/06/19 04:38 Baso % (Auto) 0.7 % (0.0-1.8) 02/06/19 04:38 Lymph # 1.8 K/mm3 (1.2-5.4) 02/06/19 04:38 [place] # 0.9 K/mm3 (0.0-0.8) H 02/06/19 04:38 Eos # 0.3 K/mm3 (0.0-0.4) 02/06/19 04:38 Baso # 0.1 K/mm3 (0.0-0.1) 02/06/19 04:38 Seg Neutrophils % 76.5 % (40.0-70.0) H 02/06/19 04:38 Seg Neutrophils # 10.0 K/mm3 (1.8-7.7) H 02/06/19 04:38 PT 12.5 Sec. (12.2-14.9) 02/06/19 04:38 INR 0.92 (0.87-1.13) 02/06/19 04:38 APTT 49.6 Sec. (24.2-36.6) H 02/06/19 04:38 Thrombin Time 14.2 Sec. (15.1-19.6) L 02/05/19 18:25 Sodium 137 mmol/L (137-145) 02/06/19 04:38 Potassium 3.8 mmol/L (3.6-5.0) 02/06/19 04:38 Chloride 104.0 mmol/L (98-107) 02/06/19 04:38 Carbon Dioxide 21 mmol/L (22-30) L 02/06/19 04:38 Anion Gap 16 mmol/L 02/06/19 04:38 BUN 22 mg/dL (9-20) H 02/06/19 04:38 Creatinine 1.2 mg/dL (0.8-1.5) 02/06/19 04:38 Estimated GFR > 60 ml/min 02/06/19 04:38 BUN/Creatinine Ratio 18 % 02/06/19 04:38 Glucose 145 mg/dL (75-100) H 02/06/19 04:38 POC Glucose 147 (70-105) H 02/07/19 16:46 Calcium 9.0 mg/dL (8.4-10.2) 02/06/19 04:38 Ammonia 33.0 umol/L (25-60) 02/06/19 18:39 Troponin T 0.011 ng/mL (0.00-0.029) 02/05/19 18:25 Triglycerides 274 mg/dL (2-149) H 02/06/19 12:34 Cholesterol 195 mg/dL (50-199) 02/06/19 12:34 LDL Cholesterol Direct 113 mg/dL (50-130) 02/06/19 12:34 HDL Cholesterol 41 mg/dL (40-59) 02/06/19 12:34 Cholesterol/HDL Ratio 4.75 % 02/06/19 12:34 Vitamin B12 505.5 pg/mL (211-911) 02/06/19 18:39 Urine Color Yellow (Yellow) 02/07/19 15:48 Urine Turbidity Clear (Clear) 02/07/19 15:48 Urine pH 6.0 (5.0-7.0) 02/07/19 15:48 Ur Specific [place] 1.015 (1.003-1.030) 02/07/19 15:48 Urine Protein 30 mg/dl mg/dL (Negative) 02/07/19 15:48 Urine Glucose (UA) Neg mg/dL (Negative) 02/07/19 15:48 Urine Ketones 20 mg/dL (Negative) 02/07/19 15:48 Urine Blood Neg (Negative) 02/07/19 15:48 Urine Nitrite Neg (Negative) 02/07/19 15:48 Urine Bilirubin Neg (Negative) 02/07/19 15:48 Urine Urobilinogen < 2.0 mg/dL (<2.0) 02/07/19 15:48 Ur Leukocyte Esterase Neg (Negative) 02/07/19 15:48 Urine WBC (Auto) 1.0 /HPF (0.0-6.0) 02/07/19 15:48 Urine RBC (Auto) 1.0 /HPF (0.0-6.0) 02/07/19 15:48 Active Medications - Current Medications Current Medications: Generic Name Dose Route Start Last Admin Trade Name Freq PRN Reason Stop Dose Admin Acetaminophen 650 mg 02/05/19 21:47 02/06/19 00:39 Tylenol PO 650 mg Q4H PRN Administration Pain MILD(1-3)/Fever >100.5/ROSA Aspirin 325 mg 02/06/19 10:00 02/07/19 10:32 Aspirin PO 325 mg QDAY MARTHA Administration Dextrose 0 ml 02/05/19 21:52 D50w (25gm) Syringe IV Q30MIN PRN Hypoglycemia Protocol Heparin Sodium (Porcine) 5,000 unit 02/06/19 06:00 02/07/19 14:25 Heparin SUB-Q 5,000 unit Q8HR MARTHA Administration Hydralazine HCl 10 mg 02/06/19 02:00 02/07/19 12:15 Apresoline IV 10 mg Q4H PRN Administration GIVE FOR SBP>160 Sodium Chloride 1,000 mls @ 75 mls/hr 02/06/19 00:30 02/07/19 10:37 Nacl 0.9% 1000 Ml IV 75 mls/hr DIRECT MARTHA Administration Insulin Human Regular 0 units 02/05/19 22:00 02/07/19 17:00 Humulin R SUB-Q Not Given ACHS MARTHA Protocol Magnesium Hydroxide 30 ml 02/05/19 21:47 Milk Of Magnesia PO Q4H PRN Constipation Morphine Sulfate 2 mg 02/05/19 21:47 Morphine IV Q4H PRN Pain, Moderate (4-6) Olanzapine 2.5 mg 02/06/19 20:00 02/07/19 10:33 Zyprexa PO 2.5 mg QDAY MARTHA Administration Ondansetron HCl 4 mg 02/05/19 21:47 Zofran IV Q8H PRN Nausea And Vomiting Sodium Chloride 10 ml 02/05/19 22:00 02/07/19 10:33 Sodium Chloride Flush Syringe 10 Ml IV 10 ml BID MARTHA Administration Sodium Chloride 10 ml 02/05/19 21:47 Sodium Chloride Flush Syringe 10 Ml IV PRN PRN LINE FLUSH Nutrition/Malnutrition Assess - Dietary Evaluation Nutrition/Malnutrition Findings: Nutrition Notes Start: 02/06/19 11:46 Freq: Status: Active Protocol: Document 02/06/19 11:46 CT (Rec: 02/06/19 11:52 CT [id number]) Co-Sign 02/06/19 11:46 LP Nutrition Notes Need for Assessment generated from: MD Order,Education Initial or Follow up Assessment Current Diagnosis Diabetes,Hypertension, Hyperlipidemia Other Pertinent Diagnosis AMS, fall, acute encephalopathy Current Diet cardiac/consistent CHO Labs/Tests BUN 22 Glu 145 Pertinent Medications NS 75 ml/hr Humulin Height 5 ft 4 in Weight 76.9 kg Usual Body Weight 72.575 kg [place] Body Weight (kg) 59.09 BMI 29.0 Intake Prior to Admission Good Weight Status Obese Subjective/Other Information Consult for diet education on cardiac/consistent CHO. Pt was not in room at time of visit. Pt family member gave report of information and accepted the diet education since she does most of the cooking for the pt. Pt family member stated he was eting well [employer] CARETAK[employer] and that he has not had any wt loss. Burn Absent Trauma Absent GI Symptoms None Food Allergy No Minimum of two criteria No #1 Nutrition Diagnosis Food and nutrition-related knowledge deficit Etiology no previous knowledge on cardiac/consistent CHO diet As Evidenced by Signs and Symptoms Pt family member acceptance of education and handout Is patient on ventilator? No Is Patient Ambulatory and/or Out of Bed Yes REE-([place]-St. Jeor-ambulatory/OOB) [ 1878.500 NUTR.MSJOOB] Kcal/Kg value to use for calculation 20 Approximate Energy Requirements Using 1538 kcal/Kg Calculation Used for Recommendations Kcal/kg Additional Notes Protein needs: 68-82 g/kg/day (1-1.2 g/kg/day AdBW 67.95 kg) Fluid needs: 1 ml/kcal Nutrition Intervention Change Diet Order: Continue current Teaching Recipient Family Learning Readiness Good Teaching Methods Discussion,Handout Response to Teaching Verbalize understanding Education Handouts Provided Cardiac/Consistent CHO diet Barriers to Learning No Barriers RD phone number provided Yes Patient aware of follow up options Yes Goal #1 Meet >75% of energy and protein needs Anticipated Discharge Needs: cardiac/consistent CHO Follow-Up By: 02/10/19 Additional Comments Follow up for PO intakes and ONS need, assessment needs
[2019-02-08] MEDS: INSULIN REGULAR, HUMAN 100 UNITS/1 ML SUB-Q SCH ×5 (00:45→22:00)
[2019-02-08] MEDS: HEPARIN 5,000 UNIT/1 ML VIAL SUB-Q SCH ×3 (05:17→21:56)
[2019-02-08] MEDS: SODIUM CHLORIDE 0.9% 1000 ML 1,000 ML IV SCH ×2 (05:18→18:35)
[2019-02-08] MEDS: hydrALAZINE 20 MG/1 ML INJ IV PRN (05:20)
--- NOTE | 2019-02-08 09:18 | Progress Note ---
Subjective Date of service: 02/08/19 Interval history: spoke to the of the patient and still feel that he had stroke biut could have been subacute plan rehab placement plan go go voer MRI with Dr. Faustin on saturday as I feel that is left temporal lobe stroke the hearing loss is chronic and noise relaled Objective - Vital Sign Vital Signs - 12hr 02/07/19 02/07/19 02/07/19 22:00 23:00 23:48 Temperature 97.8 F Pulse Rate 84 84 Pulse Rate [ 92 H Apical] Respiratory 19 18 Rate Blood Pressure Blood Pressure 146/79 [Left] O2 Sat by Pulse 96 95 96 Oximetry 02/08/19 02/08/19 02/08/19 05:06 05:08 05:20 Temperature 97.7 F Pulse Rate 80 80 Pulse Rate [ Apical] Respiratory 20 Rate Blood Pressure 169/74 169/74 Blood Pressure [Left] O2 Sat by Pulse 95 Oximetry 02/08/19 02/08/19 02/08/19 08:18 08:58 09:14 Temperature Pulse Rate 79 Pulse Rate [ 92 H Apical] Respiratory 18 Rate Blood Pressure Blood Pressure [Left] O2 Sat by Pulse 95 100 Oximetry - Laboratory Findings CBC and BMP: 02/06/19 04:38 02/06/19 04:38 Abnormal Lab Findings: Abnormal Labs 02/05/19 02/05/19 02/05/19 18:25 18:25 18:25 WBC 12.0 H Hgb Hct MCHC Lymph % (Auto) 12.6 L [place] # Seg Neutrophils % 78.1 H Seg Neutrophils # 9.4 H APTT Thrombin Time 14.2 L Carbon Dioxide BUN 25 H Glucose 148 H POC Glucose Triglycerides 02/05/19 02/06/19 02/06/19 18:49 04:38 04:38 WBC 13.1 H Hgb 11.3 L Hct 32.7 L MCHC 35 H Lymph % (Auto) [place] # 0.9 H Seg Neutrophils % 76.5 H Seg Neutrophils # 10.0 H APTT 49.6 H Thrombin Time Carbon Dioxide BUN Glucose POC Glucose 128 H Triglycerides 02/06/19 02/06/19 02/06/19 04:38 12:34 17:19 WBC Hgb Hct MCHC Lymph % (Auto) [place] # Seg Neutrophils % Seg Neutrophils # APTT Thrombin Time Carbon Dioxide 21 L BUN 22 H Glucose 145 H POC Glucose 116 H Triglycerides 274 H 02/06/19 02/07/19 02/07/19 20:34 07:49 11:34 WBC Hgb Hct MCHC Lymph % (Auto) [place] # Seg Neutrophils % Seg Neutrophils # APTT Thrombin Time Carbon Dioxide BUN Glucose POC Glucose 128 H 134 H 147 H Triglycerides 02/07/19 02/08/19 16:46 01:02 WBC Hgb Hct MCHC Lymph % (Auto) [place] # Seg Neutrophils % Seg Neutrophils # APTT Thrombin Time Carbon Dioxide BUN Glucose POC Glucose 147 H 123 H Triglycerides
[2019-02-08] MEDS: ASPIRIN 325 MG TAB PO SCH (10:33)
--- NOTE | 2019-02-08 17:55 | Progress Note ---
Assessment and Plan Assessment and plan: CT head without contrast; no acute intracranial abnormality . No change from the previous exam MRI brain; no acute intracranial abnormality mild loss of volume Chronic white matter changes Carotid Doppler; no hemodynamically significant stenosis less than 50% stenosis -- Acute versus acute on chronic metabolic encephalopathy Current Visit: Yes Status: Acute : Patient has recurrent episodes of confusion and encephalopathy in the past Was admitted with similar symptoms 1 year ago, sister reports That he acts confused agitated with poor oral intake frequently MRI negative, physical therapy, possible placement --Altered mental status Current Visit: Yes Status: Acute Etiology is unclear. CT head no acute abnormality MRI brain no acute intracranial abnormality, mild loss of volume --Dehydration/poor oral intake Current Visit: Yes Status: Acute Patient has been placed on IV fluid. Will monitor inputs and outputs and also monitor labs May need to place [place] if unable to take oral Swallow evaluation --h/o recurrent Falls Current Visit: Yes Status: Acute He has been placed on fall precautions -- DVT prophylaxis Current Visit: Yes Status: Acute Patient placed on subcutaneous heparin. --Full code status Current Visit: Yes Status: Acute Plan of care reviewed with the patient and his nurse PT/OT, speech therapy evaluation Possible placement subacute rehab versus SNF History Interval history: Patient patient seen and examined at the bedside Medical records reviewed Patient is refusing to eat, confused intermittently Requiring restraints at times Vital signs noted Patient sister is at the bedside Hospitalist Physical - Constitutional Vitals: Temp Pulse Resp BP Pulse Ox 98.8 F 91 H 18 114/57 95 02/08/19 12:15 02/08/19 12:15 02/08/19 12:15 02/08/19 12:15 02/08/19 12:15 General appearance: Present: no acute distress, well-nourished, other (confused) - EENT Eyes: Present: PERRL, EOM intact - Neck Neck: Present: supple, normal ROM - Respiratory Respiratory effort: normal Respiratory: bilateral: diminished, negative: rales, rhonchi, wheezing - Cardiovascular Rhythm: regular Heart Sounds: Present: S1 & S2 - Extremities Extremities: no ischemia, No edema - Abdominal General gastrointestinal: soft, non-tender, non-distended, normal bowel sounds - Integumentary Integumentary: Present: clear, warm - Psychiatric Psychiatric: agitated, other (Confused at times) - Neurologic Neurologic: moves all extremities Results - Labs CBC & Chem 7: 02/06/19 04:38 02/06/19 04:38 Labs: Laboratory Last Values WBC 13.1 K/mm3 (4.5-11.0) H 02/06/19 04:38 RBC 3.89 M/mm3 (3.65-5.03) 02/06/19 04:38 Hgb 11.3 gm/dl (11.8-15.2) L 02/06/19 04:38 Hct 32.7 % (35.5-45.6) L 02/06/19 04:38 MCV 84 fl (84-94) 02/06/19 04:38 MCH 29 pg (28-32) 02/06/19 04:38 MCHC 35 % (32-34) H 02/06/19 04:38 RDW 14.3 % (13.2-15.2) 02/06/19 04:38 Plt Count 343 K/mm3 (140-440) 02/06/19 04:38 Lymph % (Auto) 13.5 % (13.4-35.0) 02/06/19 04:38 [place] % (Auto) 7.1 % (0.0-7.3) 02/06/19 04:38 Eos % (Auto) 2.2 % (0.0-4.3) 02/06/19 04:38 Baso % (Auto) 0.7 % (0.0-1.8) 02/06/19 04:38 Lymph # 1.8 K/mm3 (1.2-5.4) 02/06/19 04:38 [place] # 0.9 K/mm3 (0.0-0.8) H 02/06/19 04:38 Eos # 0.3 K/mm3 (0.0-0.4) 02/06/19 04:38 Baso # 0.1 K/mm3 (0.0-0.1) 02/06/19 04:38 Seg Neutrophils % 76.5 % (40.0-70.0) H 02/06/19 04:38 Seg Neutrophils # 10.0 K/mm3 (1.8-7.7) H 02/06/19 04:38 PT 12.5 Sec. (12.2-14.9) 02/06/19 04:38 INR 0.92 (0.87-1.13) 02/06/19 04:38 APTT 49.6 Sec. (24.2-36.6) H 02/06/19 04:38 Thrombin Time 14.2 Sec. (15.1-19.6) L 02/05/19 18:25 Sodium 137 mmol/L (137-145) 02/06/19 04:38 Potassium 3.8 mmol/L (3.6-5.0) 02/06/19 04:38 Chloride 104.0 mmol/L (98-107) 02/06/19 04:38 Carbon Dioxide 21 mmol/L (22-30) L 02/06/19 04:38 Anion Gap 16 mmol/L 02/06/19 04:38 BUN 22 mg/dL (9-20) H 02/06/19 04:38 Creatinine 1.2 mg/dL (0.8-1.5) 02/06/19 04:38 Estimated GFR > 60 ml/min 02/06/19 04:38 BUN/Creatinine Ratio 18 % 02/06/19 04:38 Glucose 145 mg/dL (75-100) H 02/06/19 04:38 POC Glucose 142 (70-105) H 02/08/19 15:26 Calcium 9.0 mg/dL (8.4-10.2) 02/06/19 04:38 Ammonia 33.0 umol/L (25-60) 02/06/19 18:39 Troponin T 0.011 ng/mL (0.00-0.029) 02/05/19 18:25 Triglycerides 274 mg/dL (2-149) H 02/06/19 12:34 Cholesterol 195 mg/dL (50-199) 02/06/19 12:34 LDL Cholesterol Direct 113 mg/dL (50-130) 02/06/19 12:34 HDL Cholesterol 41 mg/dL (40-59) 02/06/19 12:34 Cholesterol/HDL Ratio 4.75 % 02/06/19 12:34 Vitamin B12 505.5 pg/mL (211-911) 02/06/19 18:39 Urine Color Yellow (Yellow) 02/07/19 15:48 Urine Turbidity Clear (Clear) 02/07/19 15:48 Urine pH 6.0 (5.0-7.0) 02/07/19 15:48 Ur Specific [place] 1.015 (1.003-1.030) 02/07/19 15:48 Urine Protein 30 mg/dl mg/dL (Negative) 02/07/19 15:48 Urine Glucose (UA) Neg mg/dL (Negative) 02/07/19 15:48 Urine Ketones 20 mg/dL (Negative) 02/07/19 15:48 Urine Blood Neg (Negative) 02/07/19 15:48 Urine Nitrite Neg (Negative) 02/07/19 15:48 Urine Bilirubin Neg (Negative) 02/07/19 15:48 Urine Urobilinogen < 2.0 mg/dL (<2.0) 02/07/19 15:48 Ur Leukocyte Esterase Neg (Negative) 02/07/19 15:48 Urine WBC (Auto) 1.0 /HPF (0.0-6.0) 02/07/19 15:48 Urine RBC (Auto) 1.0 /HPF (0.0-6.0) 02/07/19 15:48 Active Medications - Current Medications Current Medications: Generic Name Dose Route Start Last Admin Trade Name Freq PRN Reason Stop Dose Admin Acetaminophen 650 mg 02/05/19 21:47 02/06/19 00:39 Tylenol PO 650 mg Q4H PRN Administration Pain MILD(1-3)/Fever >100.5/ROSA Aspirin 325 mg 02/06/19 10:00 02/08/19 10:33 Aspirin PO 325 mg QDAY MARTHA Administration Dextrose 0 ml 02/05/19 21:52 D50w (25gm) Syringe IV Q30MIN PRN Hypoglycemia Protocol Heparin Sodium (Porcine) 5,000 unit 02/06/19 06:00 02/08/19 14:11 Heparin SUB-Q 5,000 unit Q8HR MARTHA Administration Hydralazine HCl 10 mg 02/06/19 02:00 02/08/19 05:20 Apresoline IV 10 mg Q4H PRN Administration GIVE FOR SBP>160 Sodium Chloride 1,000 mls @ 75 mls/hr 02/06/19 00:30 02/08/19 05:18 Nacl 0.9% 1000 Ml IV 75 mls/hr DIRECT MARTHA Administration Insulin Human Regular 0 units 02/05/19 22:00 02/08/19 16:14 Humulin R SUB-Q Not Given ACHS [facility] Protocol Magnesium Hydroxide 30 ml 02/05/19 21:47 02/08/19 06:04 Milk Of Magnesia PO 30 ml Q4H PRN Administration Constipation Morphine Sulfate 2 mg 02/05/19 21:47 Morphine IV Q4H PRN Pain, Moderate (4-6) Olanzapine 2.5 mg 02/06/19 20:00 02/08/19 10:33 Zyprexa PO 2.5 mg QDAY MARTHA Administration Ondansetron HCl 4 mg 02/05/19 21:47 Zofran IV Q8H PRN Nausea And Vomiting Sodium Chloride 10 ml 02/05/19 22:00 02/08/19 10:34 Sodium Chloride Flush Syringe 10 Ml IV Not Given BID MARTHA Sodium Chloride 10 ml 02/05/19 21:47 Sodium Chloride Flush Syringe 10 Ml IV PRN PRN LINE FLUSH Nutrition/Malnutrition Assess - Dietary Evaluation Nutrition/Malnutrition Findings: Nutrition Notes Start: 02/06/19 11:46 Freq: Status: Active Protocol: Document 02/06/19 11:46 CT (Rec: 02/06/19 11:52 CT [id number]) Co-Sign 02/06/19 11:46 LP Nutrition Notes Need for Assessment generated from: MD Order,Education Initial or Follow up Assessment Current Diagnosis Diabetes,Hypertension, Hyperlipidemia Other Pertinent Diagnosis AMS, fall, acute encephalopathy Current Diet cardiac/consistent CHO Labs/Tests BUN 22 Glu 145 Pertinent Medications NS 75 ml/hr Humulin Height 5 ft 4 in Weight 76.9 kg Usual Body Weight 72.575 kg [place] Body Weight (kg) 59.09 BMI 29.0 Intake Prior to Admission Good Weight Status Obese Subjective/Other Information Consult for diet education on cardiac/consistent CHO. Pt was not in room at time of visit. Pt family member gave report of information and accepted the diet education since she does most of the cooking for the pt. 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 Burn Absent Trauma Absent GI Symptoms None Food Allergy No Minimum of two criteria No #1 Nutrition Diagnosis Food and nutrition-related knowledge deficit Etiology no previous knowledge on cardiac/consistent CHO diet As Evidenced by Signs and Symptoms Pt family member acceptance of education and handout Is patient on ventilator? No Is Patient Ambulatory and/or Out of Bed Yes REE-([place]-St. Jeor-ambulatory/OOB) [ 1878.500 NUTR.MSJOOB] Kcal/Kg value to use for calculation 20 Approximate Energy Requirements Using 1538 kcal/Kg Calculation Used for Recommendations Kcal/kg Additional Notes Protein needs: 68-82 g/kg/day (1-1.2 g/kg/day AdBW 67.95 kg) Fluid needs: 1 ml/kcal Nutrition Intervention Change Diet Order: Continue current Teaching Recipient Family Learning Readiness Good Teaching Methods Discussion,Handout Response to Teaching Verbalize understanding Education Handouts Provided Cardiac/Consistent CHO diet Barriers to Learning No Barriers RD phone number provided Yes Patient aware of follow up options Yes Goal #1 Meet >75% of energy and protein needs Anticipated Discharge Needs: cardiac/consistent CHO Follow-Up By: 02/10/19 Additional Comments Follow up for PO intakes and ONS need, assessment needs
[2019-02-09] MEDS: HEPARIN 5,000 UNIT/1 ML VIAL SUB-Q SCH ×3 (06:09→22:01)
[2019-02-09] MEDS: SODIUM CHLORIDE 0.9% 1000 ML 1,000 ML IV SCH (06:13)
[2019-02-09] MEDS: INSULIN REGULAR, HUMAN 100 UNITS/1 ML SUB-Q SCH ×3 (09:53→21:39)
--- NOTE | 2019-02-09 13:07 | Progress Note ---
Assessment and Plan Assessment and plan: Patient is a 68-year-old male was brought into the emergency room today because of a change in mental status and slurred speech. He was also said to have had generalized weakness. Patient was found in the neighbors yard on the ground and brought to the ER by the EMS. Patient indicates that he had a fall but denies any dizziness or blurry vision. He has been more alert and oriented since arrival in the emergency room. Sister who is by the bedside indicates that patient's speech has been a little slurred. Patient had extensive neuro work-up which was negative as mentioned below, patient symptoms slightly improved Remains confused agitated requiring restraints sometimes, poor oral intake PT evaluated the patient, recommend subacute rehab, Possible placement rehab versus SNF Discharge plan discussed in detail with patient's sister who is the power of environmental attorney As well as the patient's niec CT head without contrast; no acute intracranial abnormality . No change from the previous exam MRI brain; no acute intracranial abnormality mild loss of volume Chronic white matter changes Carotid Doppler; no hemodynamically significant stenosis less than 50% stenosis -- Acute versus acute on chronic metabolic encephalopathy Current Visit: Yes Status: Acute : Patient has recurrent episodes of confusion and encephalopathy in the past Was admitted with similar symptoms 1 year ago, sister reports That he acts confused agitated with poor oral intake frequently MRI negative, physical therapy, possible placement --Altered mental status Current Visit: Yes Status: Acute Etiology is unclear. CT head no acute abnormality MRI brain no acute intracranial abnormality, mild loss of volume --Dehydration/poor oral intake Current Visit: Yes Status: Acute Patient has been placed on IV fluid. Will monitor inputs and outputs and also monitor labs Swallow evaluation --h/o recurrent Falls Current Visit: Yes Status: Acute He has been placed on fall precautions -- DVT prophylaxis Current Visit: Yes Status: Acute Patient placed on subcutaneous heparin. --Full code status Current Visit: Yes Status: Acute Plan of care reviewed with the patient and his nurse PT/OT, speech therapy evaluation Disposition ;possible placement subacute rehab versus SNF Vs home with home health when stable[1-2 days] Hospitalist Physical - Constitutional Vitals: Temp Pulse Resp BP Pulse Ox 97.5 F L 73 20 137/57 96 02/09/19 03:28 02/09/19 10:00 02/09/19 03:28 02/09/19 03:28 02/09/19 08:04 General appearance: Present: no acute distress, well-nourished, other (confused) - EENT Eyes: Present: PERRL, EOM intact - Neck Neck: Present: supple, normal ROM - Respiratory Respiratory effort: normal Respiratory: bilateral: diminished, negative: rales, rhonchi, wheezing - Cardiovascular Rhythm: regular Heart Sounds: Present: S1 & S2 - Extremities Extremities: no ischemia, No edema - Abdominal General gastrointestinal: soft, non-tender, non-distended, normal bowel sounds - Integumentary Integumentary: Present: clear, warm - Psychiatric Psychiatric: agitated, other (Sometimes depressed) - Neurologic Neurologic: moves all extremities, other (Residual weakness) Results - Labs CBC & Chem 7: 02/06/19 04:38 02/06/19 04:38 Labs: Laboratory Last Values WBC 13.1 K/mm3 (4.5-11.0) H 02/06/19 04:38 RBC 3.89 M/mm3 (3.65-5.03) 02/06/19 04:38 Hgb 11.3 gm/dl (11.8-15.2) L 02/06/19 04:38 Hct 32.7 % (35.5-45.6) L 02/06/19 04:38 MCV 84 fl (84-94) 02/06/19 04:38 MCH 29 pg (28-32) 02/06/19 04:38 MCHC 35 % (32-34) H 02/06/19 04:38 RDW 14.3 % (13.2-15.2) 02/06/19 04:38 Plt Count 343 K/mm3 (140-440) 02/06/19 04:38 Lymph % (Auto) 13.5 % (13.4-35.0) 02/06/19 04:38 [place] % (Auto) 7.1 % (0.0-7.3) 02/06/19 04:38 Eos % (Auto) 2.2 % (0.0-4.3) 02/06/19 04:38 Baso % (Auto) 0.7 % (0.0-1.8) 02/06/19 04:38 Lymph # 1.8 K/mm3 (1.2-5.4) 02/06/19 04:38 [place] # 0.9 K/mm3 (0.0-0.8) H 02/06/19 04:38 Eos # 0.3 K/mm3 (0.0-0.4) 02/06/19 04:38 Baso # 0.1 K/mm3 (0.0-0.1) 02/06/19 04:38 Seg Neutrophils % 76.5 % (40.0-70.0) H 02/06/19 04:38 Seg Neutrophils # 10.0 K/mm3 (1.8-7.7) H 02/06/19 04:38 PT 12.5 Sec. (12.2-14.9) 02/06/19 04:38 INR 0.92 (0.87-1.13) 02/06/19 04:38 APTT 49.6 Sec. (24.2-36.6) H 02/06/19 04:38 Thrombin Time 14.2 Sec. (15.1-19.6) L 02/05/19 18:25 Sodium 137 mmol/L (137-145) 02/06/19 04:38 Potassium 3.8 mmol/L (3.6-5.0) 02/06/19 04:38 Chloride 104.0 mmol/L (98-107) 02/06/19 04:38 Carbon Dioxide 21 mmol/L (22-30) L 02/06/19 04:38 Anion Gap 16 mmol/L 02/06/19 04:38 BUN 22 mg/dL (9-20) H 02/06/19 04:38 Creatinine 1.2 mg/dL (0.8-1.5) 02/06/19 04:38 Estimated GFR > 60 ml/min 02/06/19 04:38 BUN/Creatinine Ratio 18 % 02/06/19 04:38 Glucose 145 mg/dL (75-100) H 02/06/19 04:38 POC Glucose 130 (70-105) H 02/09/19 12:03 Calcium 9.0 mg/dL (8.4-10.2) 02/06/19 04:38 Ammonia 33.0 umol/L (25-60) 02/06/19 18:39 Troponin T 0.011 ng/mL (0.00-0.029) 02/05/19 18:25 Triglycerides 274 mg/dL (2-149) H 02/06/19 12:34 Cholesterol 195 mg/dL (50-199) 02/06/19 12:34 LDL Cholesterol Direct 113 mg/dL (50-130) 02/06/19 12:34 HDL Cholesterol 41 mg/dL (40-59) 02/06/19 12:34 Cholesterol/HDL Ratio 4.75 % 02/06/19 12:34 Vitamin B12 505.5 pg/mL (211-911) 02/06/19 18:39 Urine Color Yellow (Yellow) 02/07/19 15:48 Urine Turbidity Clear (Clear) 02/07/19 15:48 Urine pH 6.0 (5.0-7.0) 02/07/19 15:48 Ur Specific [place] 1.015 (1.003-1.030) 02/07/19 15:48 Urine Protein 30 mg/dl mg/dL (Negative) 02/07/19 15:48 Urine Glucose (UA) Neg mg/dL (Negative) 02/07/19 15:48 Urine Ketones 20 mg/dL (Negative) 02/07/19 15:48 Urine Blood Neg (Negative) 02/07/19 15:48 Urine Nitrite Neg (Negative) 02/07/19 15:48 Urine Bilirubin Neg (Negative) 02/07/19 15:48 Urine Urobilinogen < 2.0 mg/dL (<2.0) 02/07/19 15:48 Ur Leukocyte Esterase Neg (Negative) 02/07/19 15:48 Urine WBC (Auto) 1.0 /HPF (0.0-6.0) 02/07/19 15:48 Urine RBC (Auto) 1.0 /HPF (0.0-6.0) 02/07/19 15:48 Active Medications - Current Medications Current Medications: Generic Name Dose Route Start Last Admin Trade Name Freq PRN Reason Stop Dose Admin Acetaminophen 650 mg 02/05/19 21:47 02/06/19 00:39 Tylenol PO 650 mg Q4H PRN Administration Pain MILD(1-3)/Fever >100.5/ROSA Aspirin 325 mg 02/06/19 10:00 02/08/19 10:33 Aspirin PO 325 mg QDAY MARTHA Administration Dextrose 0 ml 02/05/19 21:52 D50w (25gm) Syringe IV Q30MIN PRN Hypoglycemia Protocol Heparin Sodium (Porcine) 5,000 unit 02/06/19 06:00 02/09/19 06:09 Heparin SUB-Q 5,000 unit Q8HR MARTHA Administration Hydralazine HCl 10 mg 02/06/19 02:00 02/08/19 05:20 Apresoline IV 10 mg Q4H PRN Administration GIVE FOR SBP>160 Sodium Chloride 1,000 mls @ 75 mls/hr 02/06/19 00:30 02/09/19 06:13 Nacl 0.9% 1000 Ml IV 75 mls/hr DIRECT MARTHA Administration Insulin Human Regular 0 units 02/05/19 22:00 02/09/19 09:53 Humulin R SUB-Q Not Given ACHS MARTHA Protocol Magnesium Hydroxide 30 ml 02/05/19 21:47 02/08/19 06:04 Milk Of Magnesia PO 30 ml Q4H PRN Administration Constipation Morphine Sulfate 2 mg 02/05/19 21:47 Morphine IV Q4H PRN Pain, Moderate (4-6) Olanzapine 2.5 mg 02/06/19 20:00 02/08/19 10:33 Zyprexa PO 2.5 mg QDAY MARTHA Administration Ondansetron HCl 4 mg 02/05/19 21:47 Zofran IV Q8H PRN Nausea And Vomiting Sodium Chloride 10 ml 02/05/19 22:00 02/08/19 21:59 Sodium Chloride Flush Syringe 10 Ml IV Not Given BID MARTHA Sodium Chloride 10 ml 02/05/19 21:47 Sodium Chloride Flush Syringe 10 Ml IV PRN PRN LINE FLUSH Nutrition/Malnutrition Assess - Dietary Evaluation Nutrition/Malnutrition Findings: Nutrition Notes Start: 02/06/19 11:46 Freq: Status: Active Protocol: Document 02/06/19 11:46 CT (Rec: 02/06/19 11:52 CT [id number]) Co-Sign 02/06/19 11:46 LP Nutrition Notes Need for Assessment generated from: MD Order,Education Initial or Follow up Assessment Current Diagnosis Diabetes,Hypertension, Hyperlipidemia Other Pertinent Diagnosis AMS, fall, acute encephalopathy Current Diet cardiac/consistent CHO Labs/Tests BUN 22 Glu 145 Pertinent Medications NS 75 ml/hr Humulin Height 5 ft 4 in Weight 76.9 kg Usual Body Weight 72.575 kg [place] Body Weight (kg) 59.09 BMI 29.0 Intake Prior to Admission Good Weight Status Obese Subjective/Other Information Consult for diet education on cardiac/consistent CHO. Pt was not in room at time of visit. Pt family member gave report of information and accepted the diet education since she does most of the cooking for the pt. Pt family member stated he was eting well [employer] and that he has not had any wt loss. Burn Absent Trauma Absent GI Symptoms None Food Allergy No Minimum of two criteria No #1 Nutrition Diagnosis Food and nutrition-related knowledge deficit Etiology no previous knowledge on cardiac/consistent CHO diet As Evidenced by Signs and Symptoms Pt family member acceptance of education and handout Is patient on ventilator? No Is Patient Ambulatory and/or Out of Bed Yes REE-([place]-St. Jeor-ambulatory/OOB) [ 1878.500 NUTR.MSJOOB] Kcal/Kg value to use for calculation 20 Approximate Energy Requirements Using 1538 kcal/Kg Calculation Used for Recommendations Kcal/kg Additional Notes Protein needs: 68-82 g/kg/day (1-1.2 g/kg/day AdBW 67.95 kg) Fluid needs: 1 ml/kcal Nutrition Intervention Change Diet Order: Continue current Teaching Recipient Family Learning Readiness Good Teaching Methods Discussion,Handout Response to Teaching Verbalize understanding Education Handouts Provided Cardiac/Consistent CHO diet Barriers to Learning No Barriers RD phone number provided Yes Patient aware of follow up options Yes Goal #1 Meet >75% of energy and protein needs Anticipated Discharge Needs: cardiac/consistent CHO Follow-Up By: 02/10/19 Additional Comments Follow up for PO intakes and ONS need, assessment needs
[2019-02-09] MEDS: ASPIRIN 325 MG TAB PO SCH (16:52)
[2019-02-10 04:04] VITALS: BP 137/68
[2019-02-10 05:58] LABS: BUN/Creatinine Ratio 15; Blood Urea Nitrogen 18 mg/dL (9-20); Calcium 8.7 mg/dL (8.4-10.2)
[2019-02-10 05:59] LABS: Hemolysis Index 2
[2019-02-10] MEDS: HEPARIN 5,000 UNIT/1 ML VIAL SUB-Q SCH ×2 (06:28→17:54)
[2019-02-10 08:19] LABS: Hematocrit 31.8 % (35.5-45.6); Hemoglobin 10.6 gm/dl (11.8-15.2); Lymphocytes % (Auto) 15.7 % (13.4-35.0); Mean Corpuscular HGB Conc 33 % (32-34); Mean Corpuscular Volume 87 fl (84-94); Platelet Count 270 K/mm3 (140-440); Red Blood Count 3.65 M/mm3 (3.65-5.03); Red Cell Distribution Width 14.9 % (13.2-15.2)
[2019-02-10 08:20] LABS: Basophils # (Auto) 0.1 K/mm3 (0.0-0.1); Basophils % (Auto) 0.8 % (0.0-1.8); Eosinophils # (Auto) 0.4 K/mm3 (0.0-0.4); Eosinophils % (Auto) 4.5 % (0.0-4.3); Lymphocytes # (Auto) 1.5 K/mm3 (1.2-5.4); Monocytes # (Auto) 0.7 K/mm3 (0.0-0.8); Monocytes % (Auto) 6.9 % (0.0-7.3)
[2019-02-10] MEDS: INSULIN REGULAR, HUMAN 100 UNITS/1 ML SUB-Q SCH (10:31)
[2019-02-10] MEDS: ASPIRIN 325 MG TAB PO SCH (10:38)
--- NOTE | 2019-02-10 13:29 | Progress Note ---
Assessment and Plan Assessment and plan: Patient is a 68-year-old man who presented to [facility] ED because of a change in mental status and slurred speech. He was also said to have had generalized weakness. Patient was found in the neighbors yard on the ground and brought to the ER by the EMS. Patient indicates that he had a fall but denies any dizziness or blurry vision. He has been more alert and oriented since arrival in the emergency room. Sister, Viak, who is stated POA, indicated that the patient's speech has been a little slurred. Patient had extensive neuro work-up which was negative as mentioned below, patient symptoms slightly improved. Remains confused agitated requiring restraints sometimes, poor oral intake. PT evaluated the patient, recommend subacute rehab, Possible placement rehab versus SNF * CT head without contrast; no acute intracranial abnormality. No change from the previous exam * MRI brain; no acute intracranial abnormality mild loss of volume, Chronic white matter changes * Carotid Doppler; no hemodynamically significant stenosis less than 50% stenosis -- Acute versus acute on chronic metabolic encephalopathy Current Visit: Yes Status: Acute Patient has recurrent episodes of confusion and encephalopathy in the past Was admitted with similar symptoms 1 year ago, sister reports That he acts confused agitated with poor oral intake frequently MRI negative, physical therapy, possible placement --Altered mental status Current Visit: Yes Status: Acute Etiology is unclear. CT head no acute abnormality MRI brain no acute intracranial abnormality, mild loss of volume --Dehydration/poor oral intake Current Visit: Yes Status: Acute Patient has been placed on IV fluid. Will monitor inputs and outputs and also monitor labs Swallow evaluation done --h/o recurrent Falls Current Visit: Yes Status: Acute He has been placed on fall precautions -- DVT prophylaxis Current Visit: Yes Status: Acute Patient placed on subcutaneous heparin. --Full code status Current Visit: Yes Status: Acute Plan of care reviewed with the patient and his nurse Disposition: possible [facility] History Interval history: Patient was seen and examined. Follow-up on current diagnosis of AMS. No overnight events reported to me. Patient denies any chest pain, shortness breath, nausea/vomiting or severe headaches. Imaging, nursing note, chart, labs and old chart reviewed. Discussed with patient. Sister Vika is at bedside. Hospitalist Physical - Physical exam Narrative exam: Gen: thin frial, confused, NAD, Awake, HEENT: NCAT, EOMI, PERRL, OP Clear Neck: supple, no adenopathy, no thyromegaly, no JVD CVS/Heart: RRR, normal S1S2, pulses present bilaterally Chest/Lungs: CTA B, Symmetrical chest expansion, good air entry bilaterally GI/Abdomen: soft, NTND, good bowel sounds, no guarding or rebound /Bladder: no suprapubic tenderness, no CVA or paraspinal tenderness Extermity/Skin: no c/c/e, no obvious rash MSK: FROM x 4 Neuro: CN 2-12 grossly intact, no new focal deficits Psych: calm but confused - Constitutional Vitals: Temp Pulse Resp BP Pulse Ox 98.5 F 75 16 137/68 94 02/10/19 03:48 02/10/19 10:00 02/10/19 03:48 02/10/19 03:48 02/10/19 03:48 General appearance: Present: no acute distress, well-nourished, other (confused) Results - Labs CBC & Chem 7: 02/10/19 04:47 02/10/19 04:47 Labs: Laboratory Last Values WBC 9.6 K/mm3 (4.5-11.0) 02/10/19 04:47 RBC 3.65 M/mm3 (3.65-5.03) 02/10/19 04:47 Hgb 10.6 gm/dl (11.8-15.2) L 02/10/19 04:47 Hct 31.8 % (35.5-45.6) L 02/10/19 04:47 MCV 87 fl (84-94) 02/10/19 04:47 MCH 29 pg (28-32) 02/10/19 04:47 MCHC 33 % (32-34) 02/10/19 04:47 RDW 14.9 % (13.2-15.2) 02/10/19 04:47 Plt Count 270 K/mm3 (140-440) 02/10/19 04:47 Lymph % (Auto) 15.7 % (13.4-35.0) 02/10/19 04:47 Pettis % (Auto) 6.9 % (0.0-7.3) 02/10/19 04:47 Eos % (Auto) 4.5 % (0.0-4.3) H 02/10/19 04:47 Baso % (Auto) 0.8 % (0.0-1.8) 02/10/19 04:47 Lymph # 1.5 K/mm3 (1.2-5.4) 02/10/19 04:47 Pettis # 0.7 K/mm3 (0.0-0.8) 02/10/19 04:47 Eos # 0.4 K/mm3 (0.0-0.4) 02/10/19 04:47 Baso # 0.1 K/mm3 (0.0-0.1) 02/10/19 04:47 Add Manual Diff Complete 02/10/19 04:47 Seg Neutrophils % 72.1 % (40.0-70.0) H 02/10/19 04:47 Seg Neutrophils # 6.9 K/mm3 (1.8-7.7) 02/10/19 04:47 PT 12.5 Sec. (12.2-14.9) 02/06/19 04:38 INR 0.92 (0.87-1.13) 02/06/19 04:38 APTT 49.6 Sec. (24.2-36.6) H 02/06/19 04:38 Thrombin Time 14.2 Sec. (15.1-19.6) L 02/05/19 18:25 Sodium 139 mmol/L (137-145) 02/10/19 04:47 Potassium 3.9 mmol/L (3.6-5.0) 02/10/19 04:47 Chloride 104.6 mmol/L (98-107) 02/10/19 04:47 Carbon Dioxide 19 mmol/L (22-30) L 02/10/19 04:47 Anion Gap 19 mmol/L 02/10/19 04:47 BUN 18 mg/dL (9-20) 02/10/19 04:47 Creatinine 1.2 mg/dL (0.8-1.5) 02/10/19 04:47 Estimated GFR > 60 ml/min 02/10/19 04:47 BUN/Creatinine Ratio 15 % 02/10/19 04:47 Glucose 136 mg/dL (75-100) H 02/10/19 04:47 POC Glucose 191 (70-105) H 02/10/19 12:44 Calcium 8.7 mg/dL (8.4-10.2) 02/10/19 04:47 Magnesium 1.90 mg/dL (1.7-2.3) 02/10/19 04:47 Ammonia 33.0 umol/L (25-60) 02/06/19 18:39 Troponin T 0.011 ng/mL (0.00-0.029) 02/05/19 18:25 Triglycerides 274 mg/dL (2-149) H 02/06/19 12:34 Cholesterol 195 mg/dL (50-199) 02/06/19 12:34 LDL Cholesterol Direct 113 mg/dL (50-130) 02/06/19 12:34 HDL Cholesterol 41 mg/dL (40-59) 02/06/19 12:34 Cholesterol/HDL Ratio 4.75 % 02/06/19 12:34 Vitamin B12 505.5 pg/mL (211-911) 02/06/19 18:39 Urine Color Yellow (Yellow) 02/07/19 15:48 Urine Turbidity Clear (Clear) 02/07/19 15:48 Urine pH 6.0 (5.0-7.0) 02/07/19 15:48 Ur Specific [place] 1.015 (1.003-1.030) 02/07/19 15:48 Urine Protein 30 mg/dl mg/dL (Negative) 02/07/19 15:48 Urine Glucose (UA) Neg mg/dL (Negative) 02/07/19 15:48 Urine Ketones 20 mg/dL (Negative) 02/07/19 15:48 Urine Blood Neg (Negative) 02/07/19 15:48 Urine Nitrite Neg (Negative) 02/07/19 15:48 Urine Bilirubin Neg (Negative) 02/07/19 15:48 Urine Urobilinogen < 2.0 mg/dL (<2.0) 02/07/19 15:48 Ur Leukocyte Esterase Neg (Negative) 02/07/19 15:48 Urine WBC (Auto) 1.0 /HPF (0.0-6.0) 02/07/19 15:48 Urine RBC (Auto) 1.0 /HPF (0.0-6.0) 02/07/19 15:48 Active Medications - Current Medications Current Medications: Generic Name Dose Route Start Last Admin Trade Name Freq PRN Reason Stop Dose Admin Acetaminophen 650 mg 02/05/19 21:47 02/06/19 00:39 Tylenol PO 650 mg Q4H PRN Administration Pain MILD(1-3)/Fever >100.5/ROSA Aspirin 325 mg 02/06/19 10:00 02/10/19 10:38 Aspirin PO 325 mg QDAY MARTHA Administration Dextrose 0 ml 02/05/19 21:52 D50w (25gm) Syringe IV Q30MIN PRN Hypoglycemia Protocol Heparin Sodium (Porcine) 5,000 unit 02/06/19 06:00 02/10/19 06:28 Heparin SUB-Q Not Given Q8HR MARTHA Hydralazine HCl 10 mg 02/06/19 02:00 02/08/19 05:20 Apresoline IV 10 mg Q4H PRN Administration GIVE FOR SBP>160 Sodium Chloride 1,000 mls @ 75 mls/hr 02/06/19 00:30 02/09/19 06:13 Nacl 0.9% 1000 Ml IV 75 mls/hr DIRECT MARTHA Administration Insulin Human Regular 0 units 02/05/19 22:00 02/10/19 10:31 Humulin R SUB-Q Not Given ACHS [facility] Protocol Magnesium Hydroxide 30 ml 02/05/19 21:47 02/08/19 06:04 Milk Of Magnesia PO 30 ml Q4H PRN Administration Constipation Morphine Sulfate 2 mg 02/05/19 21:47 Morphine IV Q4H PRN Pain, Moderate (4-6) Olanzapine 2.5 mg 02/06/19 20:00 02/10/19 10:38 Zyprexa PO 2.5 mg QDAY MARTHA Administration Ondansetron HCl 4 mg 02/05/19 21:47 Zofran IV Q8H PRN Nausea And Vomiting Sodium Chloride 10 ml 02/05/19 22:00 02/10/19 10:38 Sodium Chloride Flush Syringe 10 Ml IV 10 ml BID MARTHA Administration Sodium Chloride 10 ml 02/05/19 21:47 Sodium Chloride Flush Syringe 10 Ml IV PRN PRN LINE FLUSH Nutrition/Malnutrition Assess - Dietary Evaluation Nutrition/Malnutrition Findings: Nutrition Notes Start: 02/06/19 11:46 Freq: Status: Active Protocol: Document 02/06/19 11:46 CT (Rec: 02/06/19 11:52 CT [id number]) Co-Sign 02/06/19 11:46 LP Nutrition Notes Need for Assessment generated from: MD Order,Education Initial or Follow up Assessment Current Diagnosis Diabetes,Hypertension, Hyperlipidemia Other Pertinent Diagnosis AMS, fall, acute encephalopathy Current Diet cardiac/consistent CHO Labs/Tests BUN 22 Glu 145 Pertinent Medications NS 75 ml/hr Humulin Height 5 ft 4 in Weight 76.9 kg Usual Body Weight 72.575 kg [place] Body Weight (kg) 59.09 BMI 29.0 Intake Prior to Admission Good Weight Status Obese Subjective/Other Information Consult for diet education on cardiac/consistent CHO. Pt was not in room at time of visit. Pt family member gave report of information and accepted the diet education since she does most of the cooking for the pt. 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 Burn Absent Trauma Absent GI Symptoms None Food Allergy No Minimum of two criteria No #1 Nutrition Diagnosis Food and nutrition-related knowledge deficit Etiology no previous knowledge on cardiac/consistent CHO diet As Evidenced by Signs and Symptoms Pt family member acceptance of education and handout Is patient on ventilator? No Is Patient Ambulatory and/or Out of Bed Yes REE-([place]. Jeor-ambulatory/OOB) [ 1878.500 NUTR.MSJOOB] Kcal/Kg value to use for calculation 20 Approximate Energy Requirements Using 1538 kcal/Kg Calculation Used for Recommendations Kcal/kg Additional Notes Protein needs: 68-82 g/kg/day (1-1.2 g/kg/day AdBW 67.95 kg) Fluid needs: 1 ml/kcal Nutrition Intervention Change Diet Order: Continue current Teaching Recipient Family Learning Readiness Good Teaching Methods Discussion,Handout Response to Teaching Verbalize understanding Education Handouts Provided Cardiac/Consistent CHO diet Barriers to Learning No Barriers RD phone number provided Yes Patient aware of follow up options Yes Goal #1 Meet >75% of energy and protein needs Anticipated Discharge Needs: cardiac/consistent CHO Follow-Up By: 02/10/19 Additional Comments Follow up for PO intakes and ONS need, assessment needs
--- NOTE | 2019-02-10 13:36 | Discharge Summary ---
Providers - Providers Date of Admission: 02/05/19 21:25 Date of discharge: 02/10/19 Attending physician: JESSICA COYNE 02/05/19 21:53 Consult to Dietitian/Nutrition [CONS] Routine Physician Instructions: Reason For Exam: Reason for Consult: Diet education 02/05/19 22:23 Consult to Physician [CONS] Routine Comment: Consulting Provider: JOANN SANCHEZ Physician Instructions: Reason For Exam: ALTERED MENTAL STATUS. R/O CVA 02/06/19 10:27 Physical Therapy Evaluation and Treat [CONS] Routine Comment: Reason For Exam: unsteady gait Primary care physician: ENDOCRINOLOGY TEACHER Hospitalization Condition: Stable Hospital course: Patient is a 68-year-old man who presented to [facility] ED because of a change in mental status and slurred speech. He was also said to have had generalized weakness. Patient was found in the neighbors yard on the ground and brought to the ER by the EMS. Patient indicates that he had a fall but denies any dizziness or blurry vision. He has been more alert and oriented since arrival in the emergency room. Sister, Vika, who is stated POA, indicated that the patient's speech has been a little slurred. Patient had extensive neuro work-up which was negative as mentioned below, patient symptoms slightly improved. Remains confused agitated requiring restraints sometimes, poor oral intake. PT evaluated the patient, recommend subacute rehab, Possible placement rehab versus SNF * CT head without contrast; no acute intracranial abnormality. No change from the previous exam * MRI brain; no acute intracranial abnormality mild loss of volume, Chronic white matter changes * Carotid Doppler; no hemodynamically significant stenosis less than 50% stenosis Discharge Diagnoses: --Acute metabolic encephalopathy with dehydration --Dehydration/poor oral intake --AMS due to suspected Dementia --AOCD --h/o recurrent Falls --DVT prophylaxis --Full code status Disposition: [facility] Disposition: DC/[place]-03 SNF W [facility] CERT Time spent for discharge: 35 minutes Core Measure Documentation - Palliative Care Palliative Care/ Comfort Measures: Not Applicable - Core Measures Any of the following diagnoses?: none - VTE Discharge Requirements Deep Vein Thrombosis/Pulmonary Embolism Present on Admission: No Has pt received <5 days of overlap therapy or INR<2.0: No Anticoagulant overlap therapy prescribed at discharge: No Contraindication No Overlap Therapy order at DC: Not Indicated Exam - Physical Exam Narrative exam: Gen: thin frial, confused, NAD, Awake, HEENT: NCAT, EOMI, PERRL, OP Clear Neck: supple, no adenopathy, no thyromegaly, no JVD CVS/Heart: RRR, normal S1S2, pulses present bilaterally Chest/Lungs: CTA B, Symmetrical chest expansion, good air entry bilaterally GI/Abdomen: soft, NTND, good bowel sounds, no guarding or rebound /Bladder: no suprapubic tenderness, no CVA or paraspinal tenderness Extermity/Skin: no c/c/e, no obvious rash MSK: FROM x 4 Neuro: CN 2-12 grossly intact, no new focal deficits Psych: calm but confused - Constitutional Vitals: Temp Pulse Resp BP Pulse Ox 98.5 F 75 16 137/68 94 02/10/19 03:48 02/10/19 10:00 02/10/19 03:48 02/10/19 03:48 02/10/19 03:48 Plan Activity: up only with assistance, fall precautions, other (no strenous activity) Diet: low salt Follow up with: PRIMARY CAREMD [Primary Care Provider] - 7 Days JOSE CARLOS ORTEZ MD [Staff Physician] - 7 Days Prescriptions: Pantoprazole [Protonix TAB] 20 mg PO QDAY #30 tablet. OLANzapine [ZyPREXA] 2.5 mg PO QDAY #30 tablet
--- NOTE | 2019-02-10 23:23 | Consultation ---
EEG was reviewed for this patient. It shows moderate generalized slowing compatible with encephalopathic process. I would indeed also reviewed over the MRI scan obtained the prior week with the radiologist. I can establish that this MRI scan was negative, did not show an acute stroke. There is evidence of widespread atrophy, but no acute process. I can certainly state that there is no acute ischemic disease within the left temporal lobe that I questioned about earlier in a prior note. I think it is okay for [facility] to [facility] at [facility]. Follow up in the office. JOB# [id number] SCOTTY/VINOD
== END 2019-02-10 16:55 | DRG 640 ==
LOC: ED 18:01 → 4A 21:25
PROVIDERS: ADMIT Internal Medicine Geriatric Medicine; ATTEND Internal Medicine
DX: E86.0 Dehydration (principal); G93.41 Metabolic encephalopathy; F03.90 Unspecified dementia, unspecified severity, without behavioral disturbance, psychotic disturbance, mood disturbance, and anxiety; D63.8 Anemia in other chronic diseases classified elsewhere; W18.39XA Other fall on same level, initial encounter; S00.31XA Abrasion of nose, initial encounter; Y93.89 Activity, other specified; Y92.89 Other specified places as the place of occurrence of the external cause; Y99.8 Other external cause status
CPT/HCPCS: 36415; 70450; 70551; 80048; 80061; 81001; 82140; 82607; 82962; 83735; 84484; 85025; 85610; 85670; 85730; 90471; 90686; 93005; 93010; 93880; 96374; G0378; G0008; J0360; J1644; J7030

== ENCOUNTER 2019-03-18 14:00 | Inpatient (IN) | payer MEDICARE ==
--- NOTE | 2019-03-18 14:33 | Cat Scan Report ---
CT HEAD WITHOUT CONTRAST INDICATION / CLINICAL INFORMATION: MAIN: CODE STROKE [phone]. TECHNIQUE: All CT scans at this location are performed using CT dose reduction for ALARA by means of automated e xposure control. COMPARISON: 02/05/2019 CT Head FINDINGS: HEMORRHAGE: No evidence of intracranial hemorrhage or extra-axial fluid collection. EXTRA-AXIAL SPACES: Age-appropriate enlargement of cortical sulci and basal cisterns. VENTRICULAR SYSTEM: Age appropriate enlargement of the ventricles which is unchanged compared to prev ious exams. CEREBRAL PARENCHYMA: No areas of abnormal brain parenchymal attenuation are identified. There is no i ndication of recent infarction. MIDLINE SHIFT OR HERNIATION: There is no mass effect. CEREBELLUM / BRAINSTEM: Brainstem and cerebellum have an unremarkable appearance. INTRACRANIAL VESSELS:No abnormalities are identified on this noncontrast head CT. ORBITS: visualized portions of the orbits have an unremarkable appearance. SOFT TISSUES of HEAD: No significant abnormality. CALVARIUM: Evaluation of bone windows reveals no abnormalities. PARANASAL SINUSES / MASTOID AIR CELLS: Partial opacification of the right maxillary sinus. The rest o f the sinuses are clear. ADDITIONAL FINDINGS: None. IMPRESSION: 1. No acute intracranial abnormality. 2. Right maxillary sinusitis. CODE STROKE ALERT: A verbal report was given to Dr. Alegria in the emergency department on 03/18/2019 at 02:28 PM EST. Signer Name: Michele Calvo MD Signed: 03/18/2019 2:29 PM Workstation Name: [id number]
[2019-03-18 14:37] LABS: Hematocrit 40.9 % (35.5-45.6); Hemoglobin 13.5 gm/dl (11.8-15.2); Mean Corpuscular HGB Conc 33 % (32-34); Mean Corpuscular Volume 83 fl (84-94); Platelet Count 740 K/mm3 (140-440); Red Blood Count 4.96 M/mm3 (3.65-5.03); Red Cell Distribution Width 14.2 % (13.2-15.2)
--- NOTE | 2019-03-18 14:43 | Consultation ---
Medications and Allergies Allergies Allergy/AdvReac Type Severity Reaction Status Date / Time No Known Allergies Allergy Verified 01/21/16 10:17 Home Medications Medication Instructions Recorded Confirmed Last Taken Type Acetaminophen [Acetaminophen TAB] 2 tab PO Q4H PRN #15 tablet 02/10/19 Unknown Rx Aspirin 325 mg PO QDAY #30 tablet 02/10/19 Unknown Rx Magnesium Hydroxide [Milk of 30 ml PO Q4H PRN #15 oral.liqd 02/10/19 Unknown Rx Magnesia] OLANzapine [ZyPREXA] 2.5 mg PO QDAY #30 tablet 02/10/19 Unknown Rx Pantoprazole [Protonix TAB] 20 mg PO QDAY #30 tablet. 02/10/19 Unknown Rx Active Meds: Active Medications Levetiracetam (Keppra 1,000 Mg/Ns 0.75% 100ml) 1,000 mg in 100 mls @ 400 mls/hr IV ONCE ONE Stop: 03/18/19 15:14 Results - Laboratory Findings CBC and BMP: 03/18/19 14:17 03/18/19 14:17 Assessment and Plan [facility] Date of Service: 03/18/2019 13:53:16 Impression: RO Acute Ischemic Stroke altered mental status with ?seizure like activity consisting of left facial twitching lasting < 1 min- symptoms likely due to seizure. Cannot rule out nonconvulsive status or basilar occlusion. Comments: Differential Diagnosis: 1. Cardioembolic stroke 2. Small vessel disease/lacune 3. Thromboembolic, icnnmq-la-[id number] mechanism 4. Hypercoagulable state-related infarct 5. Transient ischemic attack 6. Thrombotic mechanism, large artery disease Mechanism of Stroke: Not Clear Metrics: Last Known Well: 03/16/2019 17:00:00 [employer] Notification Time: 03/18/2019 13:52:45 Arrival Time: 03/18/2019 14:01:00 Stamp Time: 03/18/2019 13:53:16 Time First Login Attempt: 03/18/2019 14:01:58 Video Start Time: 03/18/2019 14:01:58 Symptoms: lethargy, altered mental status NIHSS Start Assessment Time: 03/18/2019 14:16:07 Patient is not a candidate for tPA. Patient was not deemed candidate for tPA thrombolytics because of Last Well Known Above 4.5 Hours. Video End Time: 03/18/2019 14:40:29 CT head showed no acute hemorrhage or acute core infarct. Advanced imaging was reviewed, No Indication of Large Vessel Occlusive Thrombus. Advanced imaging CTA head and neck obtained. Radiologist was not called back for review of advanced imaging because N/A ED Physician notified of diagnostic impression and management plan on 03/18/2019 14:31:28 Our recommendations are outlined below. Recommendations: Activate Stroke Protocol Admission/Order Set Stroke/Telemetry Floor Neuro Checks Bedside Swallow Eval DVT Prophylaxis IV Fluids, Normal Saline Head of Bed Below 30 Degrees Euglycemia and Avoid Hyperthermia (PRN Acetaminophen) Antiplatelet Therapy Recommended Start Antiplatelet Therapy Daily Ativan 2 mg prn seizure > 5 min Keppra 1000 mg IV x 1 now Keppra 500 mg q12 hours beginning tonight STAT EEG- the importance of this was explained to ED attending in order to rule out nonconvulsive status. If it cannot be done here, patient will need transfer for this. If EEG shows seizure or status, will need to intubate and sedate. Will also need cEEG if EEG shows status or if suspicion for status continues Recommended Scan: MRI Head Without Contrast Echocardiogram - Transthoracic Echocardiogram Lipid Panel to Be Obtained, if Not Done in the Last Three Months Therapies: Physical Therapy, Occupational Therapy, Speech Therapy Assessment When Applicable Dysphaghia Screen: Swallow Evaluation, Bedside NPO Until Swallow Evaluation DVT prophylaxis: Choice of Primary Team Disposition: Follow up with Teleneurology Follow up Sign Out: Discussed with Emergency Department Provider History of Present Illness: Patient is a 69 year old Male. Patient was brought by EMS for symptoms of lethargy, altered mental status 68 year old man who presents with difficulty speaking. He was last normal a couple of days ago. His sister is at the bedside. A couple of days ago, he began having increased sleepiness, lethargy, and difficulty speaking. He has been in bed mostly since it began. The sister has not noticed any weakness. CT head showed no acute hemorrhage or acute core infarct. Examination: 1A: Level of Consciousness - Requires repeated stimulation to arouse + 2 1B: Ask Month and Age - Aphasic + 2 1C: Blink Eyes & Squeeze Hands - Performs 0 Tasks + 2 2: Test Horizontal Extraocular Movements - Normal + 0 3: Test Visual Wahl - No Visual Loss + 0 4: Test Facial Palsy (Use Grimace if Obtunded) - Normal symmetry + 0 5A: Test Left Arm Motor Drift - Some Effort Against [place] + 2 5B: Test Right Arm Motor Drift - No Movement + 4 6A: Test Left Leg Motor Drift - No Movement + 4 6B: Test Right Leg Motor Drift - No Effort Against [place] + 3 7: Test Limb Ataxia (FNF/Heel-Claros) - No Ataxia + 0 8: Test Sensation - Normal; No sensory loss + 0 9: Test Language/Aphasia - Coma/Unresponsive + 3 10: Test Dysarthria - Mute/Anarthric + 2 11: Test Extinction/Inattention - No abnormality + 0 NIHSS Score: 24 Patient was informed the Neurology Consult would happen via TeleHealth consult by way of interactive audio and video telecommunications and consented to receiving care in this manner. Due to the immediate potential for life-threatening deterioration due to underlying acute neurologic illness, I spent 35 minutes providing critical care. This time includes time for face to face visit via telemedicine, review of medical records, imaging studies and discussion of findings with providers, the patient and/or family. Dr Farnaz [facility] Case [id number]
[2019-03-18 14:47] LABS: INR 1.11 (0.87-1.13)
[2019-03-18 14:48] LABS: Partial Thromboplastin Time 33.5 Sec. (24.2-36.6); Thrombin Time 14.7 Sec. (15.1-19.6)
[2019-03-18] MEDS ORDERED: levETIRAcetam 1000 MG/NS 0.75% 1,000 MG/100 ML BAG IV ONE (15:00)
[2019-03-18] MEDS ORDERED: CEFEPIME/NS 2 GM/100 ML 2 GM/100 ML BAG IV ONE (15:01)
[2019-03-18 15:03] LABS: Calcium 10.6 mg/dL (8.4-10.2)
[2019-03-18 15:14] LABS: Total Cells Counted 200
[2019-03-18 15:15] LABS: Basophils % (Manual) 0 % (0.0-1.8); Eosinophils % (Manual) 0 % (0.0-4.3); Myelocytes # (Manual) 0.2 K/mm3
[2019-03-18 15:16] LABS: Anisocytosis Few; Platelet Estimate Consistent w Auto
[2019-03-18] MEDS ORDERED: SODIUM CHLORIDE 0.9% 1000 ML 1,000 ML ONE ×2 (15:19→22:53)
[2019-03-18] MEDS ORDERED: SODIUM CHLORIDE 0.9% 1000 ML IV SOLN IV ONE (15:23)
[2019-03-18 15:50] LABS: Chol/HDL Ratio 4.55 %
--- NOTE | 2019-03-18 15:52 | Cat Scan Report ---
CTA neck without and with intravenous contrast material CLINICAL HISTORY: L MCA stroke TECHNIQUE: Following acquisition of a timing bolus 0.625 mm thick contiguous axial scans were obtained from aort ic arch to the skull base during rapid bolus intravenous contrast infusion. In addition to evaluation of axial source images multiplanar reconstructions were produced and reviewed for this report. 3 jil ne MIP reconstructions were produced and reviewed. FINDINGS: No abnormalities are seen at the origins of the great vessels. Right carotid artery: Right common carotid artery, right carotid bifurcation and cervical portions of the right internal carotid artery all have an unremarkable appearance. Left carotid artery: Left common carotid artery, left carotid bifurcation and cervical portions of th e left internal carotid artery all have an unremarkable appearance. Normal and symmetrical vertebral arteries are present. There is no indication of stenosis along the c ourse of the vertebral arteries. Both vertebral arteries contribute to the basilar artery origin. The basilar artery has an unremarkable appearance. The degree of stenosis, if any, is determined utilizing NASCET like criteria. In this case there is no indication of hemodynamically significant stenosis at the carotid bifurcations or elsewhere. Evaluation of the nonvascular soft tissue structures reveal no abnormality. There is no indication of cervical lymphadenopathy. No abnormalities are seen along the course of the airway. Visualized porti ons of the parotid glands and the submandibular salivary glands have a normal appearance. Thyroid gla nd has a normal appearance. Evaluation of the lung apices reveals no evidence of lung nodule or infil trate. Evaluation of the cervical spine remarkable for cervical spondylosis with multifocal facet art hropathy. Loss of disc height and anterior and posterior osteophyte formation are noted at the C6-7 l evel There is no indication of central canal stenosis. IMPRESSION: No indication of hemodynamically significant stenosis at the carotid bifurcations or elsewhere. Contrast dose report: Omnipaque 350: 100 ml, administered intravenously All CT examinations performed at this facility utilize modulated dose reduction, iterative reconstruc tion or weight-based dosing, as appropriate, to obtain a radiation dose which is as low as can reason ably be achieved. Signer Name: Aelxei Dominguez MD Signed: 03/18/2019 3:47 PM Workstation Name: [id number]
--- NOTE | 2019-03-18 15:56 | Cat Scan Report ---
CTA head with intravenous contrast CLINICAL HISTORY: L MCA stroke TECHNIQUE: 0.625 mm thick contiguous axial scans were obtained from the skull base to the skull vertex during ra pid bolus administration of intravenous contrast material. Multiplanar reconstructions were produced in the coronal and sagittal planes. In addition 3 plane MIP instructions were produced and reviewed f or this report. The axial source images and reconstructed images were reviewed for this report. All CT scans at this location are performed using CT dose reduction for ALARA by means of automated e xposure control. FINDINGS: Vertebral arteries: The V3 segments of the vertebral arteries have a normal appearance. Evaluation of the V4 segments of the vertebral arteries is remarkable for the presence of calcified atheroscleroti c plaque. No associated stenosis is observed. Left vertebral artery is dominant. Both vertebral arter ies contribute to the basilar artery origin. Basilar artery: Basilar artery has an unremarkable appearance. Posterior cerebral arteries: Bilaterally symmetrical visualization of posterior cerebral arteries is noted. Large right-sided and small left-sided posterior communicating artery are observed. Internal carotid arteries: Calcified atherosclerotic plaque is seen along the cavernous segments of b oth internal carotid arteries. This extends up into the supraclinoid region. There is no associated s tenosis. Anterior cerebral arteries: I do not identify an anterior communicating artery. Symmetrical A1 segmen ts are noted. A too segments of the anterior cerebral arteries and the pericallosal branches have an unremarkable appearance. Middle cerebral arteries: M1 and M2 segments of the middle cerebral arteries have an unremarkable kendall earance. A normal and symmetrical lumbar epidural Vascular branches is observed. No filling defects are identified. IMPRESSION: 1. No indication of intracranial stenosis or large vessel occlusion. CONTRAST DOSE REPORT: Opaque 350: 100 ml administered intravenously. Signer Name: Alexei Dominguez MD Signed: 03/18/2019 3:52 PM Workstation Name: [id number]
--- NOTE | 2019-03-18 16:00 | XRay Report ---
CHEST 1 VIEW INDICATION / CLINICAL INFORMATION: AMS. COMPARISON: 02/16/2018 FINDINGS: SUPPORT DEVICES: None. HEART / MEDIASTINUM: No significant abnormality. LUNGS / PLEURA: No significant pulmonary or pleural abnormality. No pneumothorax. ADDITIONAL FINDINGS: No significant additional findings. IMPRESSION: No acute pulmonary or pleural abnormality. No interval change from 02/16/2018 Signer Name: Boris Medina MD FACR Signed: 03/18/2019 3:55 PM Workstation Name: [id number]
--- NOTE | 2019-03-18 16:06 | Emergency Department Report ---
ED Altered Mental Status HPI - General Chief Complaint: Altered Mental Status Stated Complaint: NEURO ISSUES Time Seen by Provider: 03/18/19 14:26 Source: patient Mode of arrival: Ambulatory Limitations: No Limitations - History of Present Illness Initial Comments: 68-year-old male presents to ED with altered mental status. Patient shows home with his sister. She called EMS, states he was last seen normal "a couple of days ago." Sister states patient was lying on the floor as 5 PM last night next to his bed, although she was just asleep. Sister reports patient has been increasingly sleepy over the last couple of days, and has mostly been in bed. EMS was called. They state patient has been nonverbal and not following any commands. MD Complaint: altered mental status -: days(s) (3) Severity: severe Consistency of Symptoms: constant Context: unknown - Related Data Previous Rx's Medication Instructions Recorded Last Taken Type Acetaminophen [Acetaminophen TAB] 2 tab PO Q4H PRN #15 tablet 02/10/19 Unknown Rx Aspirin 325 mg PO QDAY #30 tablet 02/10/19 Unknown Rx Magnesium Hydroxide [Milk of 30 ml PO Q4H PRN #15 oral.liqd 02/10/19 Unknown Rx Magnesia] OLANzapine [ZyPREXA] 2.5 mg PO QDAY #30 tablet 02/10/19 Unknown Rx Pantoprazole [Protonix TAB] 20 mg PO QDAY #30 tablet. 02/10/19 Unknown Rx Allergies Allergy/AdvReac Type Severity Reaction Status Date / Time No Known Allergies Allergy Verified 01/21/16 10:17 ED Review of Systems ROS: Stated complaint: NEURO ISSUES Other details as noted in HPI Comment: Unobtainable due to pts medical conditions ED Past Medical Hx - Past Medical History Hx Hypertension: Yes Hx Diabetes: Yes Hx Arthritis: Yes Additional medical history: hyperlipidemia - Surgical History Additional Surgical History: leg surgery - Social History Smoking Status: Unknown if ever smoked - Medications Home Medications: Home Medications Medication Instructions Recorded Confirmed Last Taken Type Acetaminophen [Acetaminophen TAB] 2 tab PO Q4H PRN #15 tablet 02/10/19 Unknown Rx Aspirin 325 mg PO QDAY #30 tablet 02/10/19 Unknown Rx Magnesium Hydroxide [Milk of 30 ml PO Q4H PRN #15 oral.liqd 02/10/19 Unknown Rx Magnesia] OLANzapine [ZyPREXA] 2.5 mg PO QDAY #30 tablet 02/10/19 Unknown Rx Pantoprazole [Protonix TAB] 20 mg PO QDAY #30 tablet. 02/10/19 Unknown Rx ED Physical Exam - General Limitations: No Limitations General appearance: lethargic - Head Head exam: Present: atraumatic, normocephalic - Eye Eye exam: Present: normal appearance, PERRL, EOMI - ENT ENT exam: Present: mucous membranes dry - Neck Neck exam: Present: normal inspection - Respiratory Respiratory exam: Present: respiratory distress, rales, rhonchi, other (pt is ta chypneic) - Cardiovascular Cardiovascular Exam: Present: normal rhythm, tachycardia - GI/Abdominal GI/Abdominal exam: Present: soft. Absent: distended, tenderness - Extremities Exam Extremities exam: Present: normal inspection - Neurological Exam Neurological exam: Present: altered - Skin Skin exam: Present: warm, dry, intact, normal color - Assessment Assessment Interval: Baseline - Level of Consciousness 1a. Level of Consciousness: resp stimuli/obtunded - LOC Questions 1b. LOC Questions: aphasic - LOC Command 1c. LOC Commands: performs no tasks correctly - Best Gaze 2. Best Gaze: normal - Visual 3. Visual: no visual loss - Facial Palsy 4. Facial Palsy: normal symmetrical movement - Motor Arm 5a. Motor Arm Left: some gravity effort 5b. Motor Arm Right: no movement - Motor Leg 6a. Motor Leg Left: no movement 6b. Motor Leg Right: no gravity effort - Limb Ataxia 7. Limb Ataxia: absent - Sensory 8. Sensory: normal - Best Language 9. Best Language: mute/global aphasia - Dysarthria 10. Dysarthria: mute/anarrthric - Extinction and Inattention 11. Extinction/Inattention: no abnormality - Scoring Total Score: 24 Stroke Severity: Severe Stroke ED Course Vital Signs 03/18/19 03/18/19 03/18/19 13:28 14:15 14:48 Temperature Pulse Rate Respiratory Rate Blood Pressure 175/87 175/87 Blood Pressure [Left] O2 Sat by Pulse 87 90 93 Oximetry 03/18/19 03/18/19 03/18/19 15:00 15:13 15:14 Temperature 98.0 F Pulse Rate 134 H 134 H Respiratory 38 H 30 H Rate Blood Pressure 175/87 Blood Pressure 175/87 [Left] O2 Sat by Pulse 93 93 Oximetry 03/18/19 03/18/19 03/18/19 16:00 16:45 17:04 Temperature Pulse Rate 133 H 129 H 131 H Respiratory 42 H 20 28 H Rate Blood Pressure 176/74 175/64 179/66 Blood Pressure [Left] O2 Sat by Pulse 92 97 100 Oximetry 03/18/19 03/18/19 17:16 17:36 Temperature Pulse Rate 130 H 128 H Respiratory 12 20 Rate Blood Pressure 169/76 Blood Pressure 163/74 [Left] O2 Sat by Pulse 100 100 Oximetry - Reevaluation(s) Reevaluation #1: 03/18/19 16:30 Pt has been tachypneic w/ coarse, audible rhonchi. Pt has been suctioned multiple times without improvement. He remains tachypneic, RR in the 40s. Due to his altered mental status, concerned pt unable to protect his airway. Pt is awake, but not following commands or speaking. Pt may have aspirated while at home. Sister at bedside. Explained the situation to her and need for intubation. - Intubation Time Out Performed: Yes Sedative: Etomidate Mg Given: 20 Paralytic: Succinylcholine Mg Given: 150 Laryngoscope: Edwardo Size: 4 ET Tube Size: 7.5 Tube Secured Depth (cm): 24 Tube Secured Location: lips Tube Placement Confirmation: visualized tube passing t, equal breath sounds bilat, no breath sounds over epi, confirmation by capnometr Patient Tolerated Procedure: well Intubation Complications: none - Lab Data Result diagrams: 03/18/19 14:17 03/18/19 14:17 Lab Results 03/18/19 03/18/19 03/18/19 Range/Units 14:17 14:17 14:17 WBC 38.1 H (4.5-11.0) K/mm3 RBC 4.96 (3.65-5.03) M/mm3 Hgb 13.5 (11.8-15.2) gm/dl Hct 40.9 (35.5-45.6) % MCV 83 L (84-94) fl MCH 27 L (28-32) pg MCHC 33 (32-34) % RDW 14.2 (13.2-15.2) % Plt Count 740 H (140-440) K/mm3 Add Manual Diff Complete Total Counted 200 Seg Neutrophils % [place] Seg Neuts % (Manual) 93.0 H (40.0-70.0) % Band Neutrophils % 0 % Lymphocytes % (Manual) 2.5 L (13.4-35.0) % Reactive Lymphs % (Man) 0 % Monocytes % (Manual) 4.0 (0.0-7.3) % Eosinophils % (Manual) 0 (0.0-4.3) % Basophils % (Manual) 0 (0.0-1.8) % Metamyelocytes % 0 % Myelocytes % 0.5 % Promyelocytes % 0 % Blast Cells % 0 % Nucleated RBC % Not Reportable Seg Neutrophils # Man 35.4 H (1.8-7.7) K/mm3 Band Neutrophils # 0.0 K/mm3 Lymphocytes # (Manual) 1.0 L (1.2-5.4) K/mm3 Abs React Lymphs (Man) 0.0 K/mm3 Monocytes # (Manual) 1.5 H (0.0-0.8) K/mm3 Eosinophils # (Manual) 0.0 (0.0-0.4) K/mm3 Basophils # (Manual) 0.0 (0.0-0.1) K/mm3 Metamyelocytes # 0.0 K/mm3 Myelocytes # 0.2 K/mm3 Promyelocytes # 0.0 K/mm3 Blast Cells # 0.0 K/mm3 WBC Morphology Not Reportable Hypersegmented Neuts Not Reportable Hyposegmented Neuts Not Reportable Hypogranular Neuts Not Reportable Smudge Cells Not Reportable Toxic Granulation Not Reportable Toxic Vacuolation Not Reportable Dohle Bodies Not Reportable Pelger-Huet Anomaly Not Reportable Chelsi Rods Not Reportable Platelet Estimate Consistent w auto Clumped Platelets Not Reportable Plt Clumps, EDTA Not Reportable Large Platelets Not Reportable Giant Platelets Not Reportable Platelet Satelliting Not Reportable Plt Morphology Comment Not Reportable RBC Morphology Not Reportable Dimorphic RBCs Not Reportable Polychromasia Not Reportable Hypochromasia Not Reportable Poikilocytosis Not Reportable Anisocytosis Few Microcytosis Not Reportable Macrocytosis Not Reportable Spherocytes Not Reportable Pappenheimer Bodies Not Reportable Sickle Cells Not Reportable Target Cells Not Reportable Tear Drop Cells Not Reportable Ovalocytes Not Reportable Helmet Cells Not Reportable [place] Bodies Not Reportable Wise Rings Not Reportable Jose Cells Not Reportable Bite Cells Not Reportable Crenated Cell Not Reportable Elliptocytes Not Reportable Acanthocytes (Spur) Not Reportable Rouleaux Not Reportable Hemoglobin C Crystals Not Reportable Schistocytes Not Reportable Malaria parasites Not Reportable Sharif Bodies Not Reportable Hem Pathologist Commnt Sent to pathology PT 14.4 (12.2-14.9) Sec. INR 1.11 (0.87-1.13) APTT 33.5 (24.2-36.6) Sec. Thrombin Time 14.7 L (15.1-19.6) Sec. ABG pH (7.350-7.450) pH Units ABG pCO2 mm Hg ABG pO2 (80.0-90.0) mm Hg ABG HCO3 (20.0-26.0) mmol/L ABG O2 Saturation (95.0-99.0) % ABG O2 Content (0.0-44) ABG Base Excess (-2.0-3.0) mmol/L ABG Hemoglobin (14.0-18.0) gm/dl ABG Carboxyhemoglobin (0.0-5.0) % ABG Methemoglobin (0.0-1.5) % Oxyhemoglobin (95.0-99.0) % FiO2 % Sodium 138 (137-145) mmol/L Potassium 4.1 (3.6-5.0) mmol/L Chloride 94.9 L (98-107) mmol/L Carbon Dioxide 20 L (22-30) mmol/L Anion Gap 27 mmol/L BUN 34 H (9-20) mg/dL Creatinine 2.7 H (0.8-1.5) mg/dL Estimated GFR 24 ml/min BUN/Creatinine Ratio 13 % Glucose 244 H (75-100) mg/dL Lactic Acid (0.7-2.0) mmol/L Calcium 10.6 H (8.4-10.2) mg/dL Total Creatine Kinase (55-170) units/L Troponin T 0.297 H* (0.00-0.029) ng/mL Triglycerides 127 (2-149) mg/dL Cholesterol 264 H (50-199) mg/dL LDL Cholesterol Direct 182 H (50-130) mg/dL HDL Cholesterol 58 (40-59) mg/dL Cholesterol/HDL Ratio 4.55 % 03/18/19 03/18/19 03/18/19 Range/Units 15:33 15:33 Unknown WBC (4.5-11.0) K/mm3 RBC (3.65-5.03) M/mm3 Hgb (11.8-15.2) gm/dl Hct (35.5-45.6) % MCV (84-94) fl MCH (28-32) pg MCHC (32-34) % RDW (13.2-15.2) % Plt Count (140-440) K/mm3 Add Manual Diff Total Counted Seg Neutrophils % Seg Neuts % (Manual) (40.0-70.0) % Band Neutrophils % % Lymphocytes % (Manual) (13.4-35.0) % Reactive Lymphs % (Man) % Monocytes % (Manual) (0.0-7.3) % Eosinophils % (Manual) (0.0-4.3) % Basophils % (Manual) (0.0-1.8) % Metamyelocytes % % Myelocytes % % Promyelocytes % % Blast Cells % % Nucleated RBC % Seg Neutrophils # Man (1.8-7.7) K/mm3 Band Neutrophils # K/mm3 Lymphocytes # (Manual) (1.2-5.4) K/mm3 Abs React Lymphs (Man) K/mm3 Monocytes # (Manual) (0.0-0.8) K/mm3 Eosinophils # (Manual) (0.0-0.4) K/mm3 Basophils # (Manual) (0.0-0.1) K/mm3 Metamyelocytes # K/mm3 Myelocytes # K/mm3 Promyelocytes # K/mm3 Blast Cells # K/mm3 WBC Morphology Hypersegmented Neuts Hyposegmented Neuts Hypogranular Neuts Smudge Cells Toxic Granulation Toxic Vacuolation Dohle Bodies Pelger-Huet Anomaly Chelsi Rods Platelet Estimate Clumped Platelets Plt Clumps, EDTA Large Platelets Giant Platelets Platelet Satelliting Plt Morphology Comment RBC Morphology Dimorphic RBCs Polychromasia Hypochromasia Poikilocytosis Anisocytosis Microcytosis Macrocytosis Spherocytes Pappenheimer Bodies Sickle Cells Target Cells Tear Drop Cells Ovalocytes Helmet Cells [place] Bodies Wise Rings [place] Cells Bite Cells Crenated Cell Elliptocytes Acanthocytes (Spur) Rouleaux Hemoglobin C Crystals Schistocytes Malaria parasites Sharif Bodies Hem Pathologist Commnt PT (12.2-14.9) Sec. INR (0.87-1.13) APTT (24.2-36.6) Sec. Thrombin Time (15.1-19.6) Sec. ABG pH 7.395 (7.350-7.450) pH Units ABG pCO2 40.0 mm Hg ABG pO2 183.5 H (80.0-90.0) mm Hg ABG HCO3 24.0 (20.0-26.0) mmol/L ABG O2 Saturation 99.2 H (95.0-99.0) % ABG O2 Content 17.7 (0.0-44) ABG Base Excess -0.8 (-2.0-3.0) mmol/L ABG Hemoglobin 12.7 L (14.0-18.0) gm/dl ABG Carboxyhemoglobin 1.5 (0.0-5.0) % ABG Methemoglobin 0.6 (0.0-1.5) % Oxyhemoglobin 97.0 (95.0-99.0) % FiO2 50 % Sodium (137-145) mmol/L Potassium (3.6-5.0) mmol/L Chloride (98-107) mmol/L Carbon Dioxide (22-30) mmol/L Anion Gap mmol/L BUN (9-20) mg/dL Creatinine (0.8-1.5) mg/dL Estimated GFR ml/min BUN/Creatinine Ratio % Glucose (75-100) mg/dL Lactic Acid 2.70 H* (0.7-2.0) mmol/L Calcium (8.4-10.2) mg/dL Total Creatine Kinase 2896 H (55-170) units/L Troponin T (0.00-0.029) ng/mL Triglycerides (2-149) mg/dL Cholesterol (50-199) mg/dL LDL Cholesterol Direct (50-130) mg/dL HDL Cholesterol (40-59) mg/dL Cholesterol/HDL Ratio % - EKG Data -: EKG Interpreted by Tx EKG shows normal: sinus rhythm, intervals, QRS complexes Rate: tachycardia (rate 132) - Radiology Data Radiology results: report reviewed, image reviewed - Medical Decision Making 68 yo M w/ encephalopathy. Pt initially called as a stroke alert. He was seen and evaluated by teleneurologist. CT Head negative for any acute findings. CTA Head and Neck negative for large vessel occlusion. Pt had brief, 10 second episode, of possible seizure activity, so neurologist recommended Keppra load. EEG was done at bedside. Final report pending, but tech does not see evidence of status epilepticus. Pt hypertensive, awake, but nonverbal and not following commands. O2 sats 90% on RA. CXR unremarkable. Pt tachypneic despite suctioning, so decision made to intubate pt to protect airway. WBCs 38, w/ lactic acid of 2.7. Sepsis protocol initiated, cultures drawn, IV fluids given, cefepime initiated. Pt shows signs of acute renal failure and also rhabdomyol ysis w/ total CK of 2896. Troponin elevation possibly due to renal function. EKG shows no ST elevations. Pt admitted to hospitalist, Dr Denise, for further management. - Differential Diagnosis CVA, aspiration, infection Critical Care Time: Yes Critical care time in (mins) excluding proc time.: 35 Critical care attestation.: If time is entered above; I have spent that time in minutes in the direct care of this critically ill patient, excluding procedure time. Critical Care Time: 35 min ED Disposition Clinical Impression: Acute encephalopathy, Hypoxia, Acute renal failure, Sepsis, Elevated troponin, Acute respiratory failure with hypoxia, Rhabdomyolysis Disposition: -09 OP ADMIT IP TO THIS HOSP Is pt being admited?: Yes Condition: Stable Referrals: PRIMARY CARE, [Primary Care Provider] - 3-5 Days Time of Disposition: 17:18
[2019-03-18] MEDS: PROPOFOL 1,000 MG/100 ML BOTTLE IV SCH (16:45)
[2019-03-18] MEDS ORDERED: PROPOFOL 1,000 MG/100 ML BOTTLE IV ONE (16:47)
--- NOTE | 2019-03-18 16:57 | XRay Report ---
CHEST 1 VIEW INDICATION / CLINICAL INFORMATION: post-intubation. COMPARISON: 1523 hours FINDINGS: SUPPORT DEVICES: Endotracheal tube is now been placed in good position in the mid trachea. NG tube is seen extending into the stomach. HEART / MEDIASTINUM: No significant abnormality. LUNGS / PLEURA: No significant pulmonary or pleural abnormality. No pneumothorax. ADDITIONAL FINDINGS: No significant additional findings. IMPRESSION: 1 Endotracheal tube and NG tube appear to be in adequate position. Signer Name: Marco Dawn MD Signed: 03/18/2019 4:52 PM Workstation Name: [id number]
[2019-03-18] MEDS ORDERED: ASPIRIN 300 MG RECT SUPP PR ONE (17:15)
--- NOTE | 2019-03-18 17:30 | History and Physical Report ---
History of Present Illness Chief complaint: Confused History of present illness: 68-year-old male with HTN, DM, OA, HLD, Obesity presents to ED for evaluation. Patient is intubated and on vent support at time of my evaluation and is unable to provide history. Patient history taken from family members who are at the bedside during exam and interview. As per the patient's family the patient was in his usual state of health 2 days ago. Patient was found down and unresponsive at his home. EMS was notified and upon arrival the patient was found to be in distress and subsequently transported to [facility] for further care and evaluation. Patient seen and evaluated in the emergency department. Lab and imaging studies reviewed. Patient was found to have acute hypoxemic respiratory failure and is unable to protect his airway and was subsequently intubated and placed on vent support. Patient also found to have sepsis, acute kidney injury, acidosis, and encephalopathy. Patient initiated on sepsis protocol and admitted to ICU for medical stabilization due to high risk for decompensation. Patient initiated on sepsis protocol and treated with IV fluid resuscitation therapy. Pulmonary team consulted in ED. Advanced care planning conducted in ED. Prior admission on 02/05/2019 reviewed. All medication listed at time of admission have been reconciled. Past History Past Medical History: arthritis, diabetes, hypertension, hyperlipidemia Past Surgical History: Other (Leg surgery) Social history: single. denies: smoking, alcohol abuse, prescription drug abuse Family history: CAD, diabetes, hypertension Medications and Allergies Allergies Allergy/AdvReac Type Severity Reaction Status Date / Time No Known Allergies Allergy Verified 01/21/16 10:17 Home Medications Medication Instructions Recorded Confirmed Last Taken Type Acetaminophen [Acetaminophen TAB] 2 tab PO Q4H PRN #15 tablet 02/10/19 Unknown Rx Aspirin 325 mg PO QDAY #30 tablet 02/10/19 Unknown Rx Magnesium Hydroxide [Milk of 30 ml PO Q4H PRN #15 oral.liqd 02/10/19 Unknown Rx Magnesia] OLANzapine [ZyPREXA] 2.5 mg PO QDAY #30 tablet 02/10/19 Unknown Rx Pantoprazole [Protonix TAB] 20 mg PO QDAY #30 tablet. 02/10/19 Unknown Rx Review of Systems ROS unobtainable: due to mental status Exam - Constitutional Vitals: Temp Pulse Resp BP Pulse Ox 98.0 F 131 H 28 H 179/66 100 03/18/19 15:13 03/18/19 17:04 03/18/19 17:04 03/18/19 17:04 03/18/19 17:04 General appearance: Present: severe distress - EENT Eyes: Present: miosis ENT: hearing decreased - Neck Neck: Present: supple, normal ROM - Respiratory Respiratory effort: labored Respiratory: bilateral: diminished, rhonchi - Cardiovascular Heart Sounds: Present: S1 & S2. Absent: rub, click - Extremities Extremity abnormal: edema Peripheral Pulses: abnormal (Capillary refill greater than 3.5 seconds) - Abdominal General gastrointestinal: Present: soft, non-tender, non-distended Male genitourinary: Present: normal - Integumentary Integumentary: Present: clear, dry, clammy, decreased turgor - Musculoskeletal Musculoskeletal: generalized weakness - Psychiatric Psychiatric: no appropriate mood/affect, no intact judgment & insight, no memory intact - Neurologic Neurologic: moves all extremities, no gait normal Results - Labs CBC & Chem 7: 03/18/19 14:17 03/18/19 14:17 Labs: Abnormal lab results 03/18/19 03/18/19 03/18/19 Range/Units 14:17 14:17 14:17 WBC 38.1 H (4.5-11.0) K/mm3 MCV 83 L (84-94) fl MCH 27 L (28-32) pg Plt Count 740 H (140-440) K/mm3 Seg Neuts % (Manual) 93.0 H (40.0-70.0) % Lymphocytes % (Manual) 2.5 L (13.4-35.0) % Seg Neutrophils # Man 35.4 H (1.8-7.7) K/mm3 Lymphocytes # (Manual) 1.0 L (1.2-5.4) K/mm3 Monocytes # (Manual) 1.5 H (0.0-0.8) K/mm3 Thrombin Time 14.7 L (15.1-19.6) Sec. Chloride 94.9 L (98-107) mmol/L Carbon Dioxide 20 L (22-30) mmol/L BUN 34 H (9-20) mg/dL Creatinine 2.7 H (0.8-1.5) mg/dL Glucose 244 H (75-100) mg/dL Lactic Acid (0.7-2.0) mmol/L Calcium 10.6 H (8.4-10.2) mg/dL Total Creatine Kinase (55-170) units/L Troponin T 0.297 H* (0.00-0.029) ng/mL Cholesterol 264 H (50-199) mg/dL LDL Cholesterol Direct 182 H (50-130) mg/dL 03/18/19 03/18/19 Range/Units 15:33 15:33 WBC (4.5-11.0) K/mm3 MCV (84-94) fl MCH (28-32) pg Plt Count (140-440) K/mm3 Seg Neuts % (Manual) (40.0-70.0) % Lymphocytes % (Manual) (13.4-35.0) % Seg Neutrophils # Man (1.8-7.7) K/mm3 Lymphocytes # (Manual) (1.2-5.4) K/mm3 Monocytes # (Manual) (0.0-0.8) K/mm3 Thrombin Time (15.1-19.6) Sec. Chloride (98-107) mmol/L Carbon Dioxide (22-30) mmol/L BUN (9-20) mg/dL Creatinine (0.8-1.5) mg/dL Glucose (75-100) mg/dL Lactic Acid 2.70 H* (0.7-2.0) mmol/L Calcium (8.4-10.2) mg/dL Total Creatine Kinase 2896 H (55-170) units/L Troponin T (0.00-0.029) ng/mL Cholesterol (50-199) mg/dL LDL Cholesterol Direct (50-130) mg/dL Assessment and Plan - Patient Problems (1) Sepsis Current Visit: Yes Status: Acute Qualifiers: Sepsis acute organ dysfunction status: with acute organ dysfunction Severe sepsis acute organ dysfunction type: acute renal failure Plan to address problem: Admit to ICU: Sepsis protocol: IV fluid resuscitation therapy, CBC, CMP, lactic acid level, monitor urine output every shift, chest x-ray, urinalysis, maintain mean arterial pressure greater than or equal to 60, IV pressor support as clini viv indicated. The high probability of a clinically significant, sudden or life threatening deterioration of the [cardiac, pulmonary, renal, neurologic] system(s) required my full and direct attention, intervention and personal management. The aggregate critical care time was [95] minutes. This time is in addition to time spent performing reported procedures but includes the following: [x] Data Review and interpretation [x] Patient assessment and monitoring of vital signs [x] Documentation [x] Medication orders and management (2) CRISTÓBAL (acute kidney injury) Current Visit: Yes Status: Acute Plan to address problem: IV fluid resuscitation therapy, monitor urine output every shift, strict I's/O, daily weight, (3) Acidosis Current Visit: Yes Status: Acute Plan to address problem: IV fluid resuscitation therapy, monitor urine output every shift, IV bicarbonate therapy. (4) Acute respiratory failure with hypoxia Current Visit: Yes Status: Acute Plan to address problem: Patient intubated and placed on ventilatory support, daily SBT, sedation holiday, pulmonary toilet, pulmonary team consulted in ED, wean vent as tolerated, ABG in a.m. (5) HLD (hyperlipidemia) Current Visit: Yes Status: Acute Qualifiers: Hyperlipidemia type: mixed hyperlipidemia Qualified Code(s): E78.2 - Mixed hyperlipidemia Plan to address problem: Balanced diet, low-fat low-cholesterol diet, statin therapy as clinically indicated. (6) DVT prophylaxis Current Visit: No Status: Acute Plan to address problem: SCD to bilateral lower extremities while in bed, prophylactic heparin. (7) Advance care planning Current Visit: Yes Status: Acute Plan to address problem: Patient is full code, disease education conducted, +30 minutes.
[2019-03-18 17:59] LABS: ABG Base Excess -0.8 mmol/L (-2.0-3.0); ABG Methemoglobin 0.6 % (0.0-1.5); ABG Oxygen Saturation 99.2 % (95.0-99.0); ABG PH 7.395 pH Units (7.350-7.450); ABG PO2 183.5 mm Hg (80.0-90.0)
[2019-03-18 18:51] LABS: Bilirubin,Urine NEG (Negative); Blood,Urine LG (Negative); Color,Urine Yellow (Yellow); Mucus,Urine FEW /HPF; Urobilinogen,Urine < 2.0 mg/dL (<2.0)
[2019-03-18] MEDS ORDERED: SODIUM CHLORIDE 0.9% 1000 ML 1,000 ML IV ONE (21:46)
[2019-03-18] MEDS: HEPARIN 5,000 UNIT/1 ML VIAL SUB-Q SCH (23:35)
[2019-03-18] MEDS ORDERED: HEPARIN 5,000 UNIT/1 ML VIAL ONE (23:38)
[2019-03-19 01:59] LABS: Creatinine,Urine 142.9 mg/dL (0.1-20.0)
[2019-03-19 03:36] LABS: Hematocrit 34.1 % (35.5-45.6); Hemoglobin 11.3 gm/dl (11.8-15.2); Mean Corpuscular HGB Conc 33 % (32-34); Mean Corpuscular Volume 83 fl (84-94); Platelet Count 496 K/mm3 (140-440); Red Blood Count 4.12 M/mm3 (3.65-5.03); Red Cell Distribution Width 14.5 % (13.2-15.2)
[2019-03-19 04:01] LABS: Albumin 2.9 g/dL (3.9-5); Calcium 8.5 mg/dL (8.4-10.2)
[2019-03-19 04:58] LABS: Basophils % (Manual) 0 % (0.0-1.8); Eosinophils % (Manual) 0 % (0.0-4.3); Platelet Estimate Consistent w Auto; Total Cells Counted 100
[2019-03-19 05:16] LABS: ABG Base Excess -2.8 mmol/L (-2.0-3.0); ABG Methemoglobin 0.7 % (0.0-1.5); ABG Oxygen Saturation 99.3 % (95.0-99.0); ABG PCO2 33.8 mm Hg; ABG PH 7.41 pH Units (7.350-7.450); ABG PO2 201.8 mm Hg (80.0-90.0)
--- NOTE | 2019-03-19 06:51 | Consultation ---
History of Present Illness Consult date: 03/19/19 Requesting physician: ROSALIND PEREZ History of present illness: 68-year-old male with HTN, DM, OA, HLD, Obesity presents to ED for evaluation. Patient is intubated and on vent support at time of my evaluation and is unable to provide history. Patient history taken from family members who are at the bedside during exam and interview. As per the patient's family the patient was in his usual state of health 2 days ago. Patient was found down and unresponsive at his home. EMS was notified and upon arrival the patient was found to be in distress and subsequently transported to [facility] for further care and evaluation. Patient seen and evaluated in the emergency department. Lab and imaging studies reviewed. Patient was found to have acute hypoxemic respiratory failure and is unable to protect his airway and was subsequently intubated and placed on vent support. Patient also found to have sepsis, acute kidney injury, acidosis, and encephalopathy. Patient initiated on sepsis protocol and admitted to ICU for medical stabilization due to high risk for decompensation. Patient initiated on sepsis protocol and treated with IV fluid resuscitation therapy I have been consulted for critical care management. Patient was seen and examined. Vitals, labs, medications, chart and imaging were reviewed. Sister is at the bedside. Past History Past Medical History: arthritis, diabetes, hypertension, hyperlipidemia Past Surgical History: Other (Leg surgery) Social history: single. denies: smoking, alcohol abuse, prescription drug abuse Family history: CAD, diabetes, hypertension Medications and Allergies Allergies Allergy/AdvReac Type Severity Reaction Status Date / Time No Known Allergies Allergy Verified 01/21/16 10:17 Home Medications Medication Instructions Recorded Confirmed Last Taken Type Acetaminophen [Acetaminophen TAB] 2 tab PO Q4H PRN #15 tablet 02/10/19 03/19/19 Unknown Rx Aspirin 325 mg PO QDAY #30 tablet 02/10/19 03/19/19 Unknown Rx Magnesium Hydroxide [Milk of 30 ml PO Q4H PRN #15 oral.liqd 02/10/19 03/19/19 Unknown Rx Magnesia] OLANzapine [ZyPREXA] 2.5 mg PO QDAY #30 tablet 02/10/19 03/19/19 Unknown Rx Pantoprazole [Protonix TAB] 20 mg PO QDAY #30 tablet. 02/10/19 03/19/19 Unknown Rx Active Meds: Active Medications Heparin Sodium (Porcine) (Heparin) 5,000 unit SUB-Q Q12HR [facility] Last Admin: 03/18/19 23:35 Dose: 5,000 unit Documented by: Propofol (Diprivan 10 Mg/Ml) 1,000 mg in 100 mls @ 2.585 mls/hr IV TITR [facility]; Protocol Last Admin: 03/18/19 16:45 Dose: 5 mcg/kg/min, 2.585 mls/hr Documented by: Levofloxacin/Dextrose (Levaquin 750mg/150ml) 750 mg in 150 mls @ 100 mls/hr IV Q48H [facility]; Protocol Last Admin: 03/18/19 20:57 Dose: 100 mls/hr Documented by: Sodium Chloride (Sodium Chloride Flush Syringe 10 Ml) 10 ml IV BID [facility] Last Admin: 03/18/19 23:35 Dose: 10 ml Documented by: Sodium Chloride (Sodium Chloride Flush Syringe 10 Ml) 10 ml IV PRN PRN PRN Reason: LINE FLUSH Review of Systems ROS unobtainable: due to endotracheal tube, due to mental status Physical Examination Vital signs: Vital Signs Pulse Ox 87 03/18/19 13:28 Constitutional: no acute distress, other (elderly looking CM normocephalic, no patient-ventilator dys-synchrony) Eyes: non-icteric ENT: oropharynx moist, other (ETT 23 cm MARILYN) Neck: supple, no lymphadenopathy, no JVD Effort: normal Ascultation: Bilateral: diminished breath sounds, rhonchi Percussion: Bilateral: not dull Cardiovascular: regular rate and rhythm Gastrointestinal: normoactive bowel sounds, soft, non-tender, non-distended Integumentary: normal Extremities: no cyanosis, no edema, pink and warm, pulses normal Neurologic: unable to assess Psychiatric: other (unable to assess re: AMS) Results - Laboratory Findings CBC and BMP: 03/22/19 04:47 03/25/19 04:23 ABG ABG pH 7.410 pH Units (7.350-7.450) 03/19/19 05:12 ABG pCO2 33.8 mm Hg 03/19/19 05:12 ABG pO2 201.8 mm Hg (80.0-90.0) H 03/19/19 05:12 ABG O2 Saturation 99.3 % (95.0-99.0) H 03/19/19 05:12 PT/INR, D-dimer PT 14.4 Sec. (12.2-14.9) 03/18/19 14:17 INR 1.11 (0.87-1.13) 03/18/19 14:17 Abnormal lab findings: Abnormal Labs 03/18/19 03/18/19 03/18/19 14:17 14:17 14:17 WBC 38.1 H Hgb Hct MCV 83 L MCH 27 L Plt Count 740 H Seg Neuts % (Manual) 93.0 H Lymphocytes % (Manual) 2.5 L Seg Neutrophils # Man 35.4 H Lymphocytes # (Manual) 1.0 L Monocytes # (Manual) 1.5 H Thrombin Time 14.7 L ABG pO2 ABG O2 Saturation ABG Base Excess ABG Hemoglobin Chloride 94.9 L Carbon Dioxide 20 L BUN 34 H Creatinine 2.7 H Glucose 244 H Lactic Acid Calcium 10.6 H Total Creatine Kinase Troponin T 0.297 H* Total Protein Albumin Cholesterol 264 H LDL Cholesterol Direct 182 H Ur Specific [place] Urine WBC (Auto) Urine Creatinine 03/18/19 03/18/19 03/18/19 15:33 15:33 17:55 WBC Hgb Hct MCV MCH Plt Count Seg Neuts % (Manual) Lymphocytes % (Manual) Seg Neutrophils # Man Lymphocytes # (Manual) Monocytes # (Manual) Thrombin Time ABG pO2 ABG O2 Saturation ABG Base Excess ABG Hemoglobin Chloride Carbon Dioxide BUN Creatinine Glucose Lactic Acid 2.70 H* 3.00 H* Calcium Total Creatine Kinase 2896 H Troponin T Total Protein Albumin Cholesterol LDL Cholesterol Direct Ur Specific [place] Urine WBC (Auto) Urine Creatinine 03/18/19 03/18/19 03/18/19 20:22 Unknown Unknown WBC Hgb Hct MCV MCH Plt Count Seg Neuts % (Manual) Lymphocytes % (Manual) Seg Neutrophils # Man Lymphocytes # (Manual) Monocytes # (Manual) Thrombin Time ABG pO2 183.5 H ABG O2 Saturation 99.2 H ABG Base Excess ABG Hemoglobin 12.7 L Chloride Carbon Dioxide BUN Creatinine Glucose Lactic Acid 3.00 H* Calcium Total Creatine Kinase Troponin T Total Protein Albumin Cholesterol LDL Cholesterol Direct Ur Specific [place] 1.046 H Urine WBC (Auto) 23.0 H Urine Creatinine 03/19/19 03/19/19 03/19/19 01:38 02:56 02:56 WBC 25.4 H Hgb 11.3 L Hct 34.1 L D MCV 83 L MCH 27 L Plt Count 496 H Seg Neuts % (Manual) 90.0 H Lymphocytes % (Manual) 3.0 L Seg Neutrophils # Man 22.9 H Lymphocytes # (Manual) 0.8 L Monocytes # (Manual) 1.8 H Thrombin Time ABG pO2 ABG O2 Saturation ABG Base Excess ABG Hemoglobin Chloride Carbon Dioxide 20 L BUN 34 H Creatinine 2.5 H Glucose 208 H Lactic Acid Calcium Total Creatine Kinase Troponin T Total Protein 5.9 L Albumin 2.9 L Cholesterol LDL Cholesterol Direct Ur Specific [place] Urine WBC (Auto) Urine Creatinine 142.9 H 03/19/19 05:12 WBC Hgb Hct MCV MCH Plt Count Seg Neuts % (Manual) Lymphocytes % (Manual) Seg Neutrophils # Man Lymphocytes # (Manual) Monocytes # (Manual) Thrombin Time ABG pO2 201.8 H ABG O2 Saturation 99.3 H ABG Base Excess -2.8 L ABG Hemoglobin Chloride Carbon Dioxide BUN Creatinine Glucose Lactic Acid Calcium Total Creatine Kinase Troponin T Total Protein Albumin Cholesterol LDL Cholesterol Direct Ur Specific [place] Urine WBC (Auto) Urine Creatinine Assessment and Plan Acute respiratory failure with hypoxia Acute encephalopathy (Toxic/Metabolic) Severe Sepsis CRISTÓBAL Acidosis HLD (hyperlipidemia) DM type 2 Acute onset seizure Hypophosphatemia - VAP bundle addressed -Aspiration precautions, HOB >40 -Empiric antibiotic and antiviral broad spectrum coverage (Including Listeria coverage) -No sedation at this time to allow for ongoing evaluation of mental status - Bronchodilators with pulmonary hygiene per RT - Begin daily SAT's and SBT assessment as tolerated in am -Wean supplemental oxygen for target O2 sat's > 90% acutely - Continue lung protective strategies - Enteric nutrition, glycemic control - neurology evaluation - Accuchecks with glycemic control per SSI (While critically ill target blood glucose of 140-180 mg/dL; avoid hypoglycemia) - prn analgesia per CPOT score - Maintenance of sleep-wake cycle, avoid delirium - G.I. & VTE prophylaxis - PT/OT/ROM exercises - continue mobility protocols for pressure ulcer prevention - Monitor hemodynamics closely -Chronic home medications as clinically indicated -Kwok catheter in this critically ill patient with acute kidney injury to monitor accurate intake and output. Re-evalaute ongoing need for Kwok catheter daily - continue other care per attending / other product development consultant's Discussed extensively with his sister at the bedside. Discussed care plan and answered all her questions CONDITION: CRITICAL PROGNOSIS: GUARDED CODE STATUS: FULL CODE The high probability of a clinically significant, sudden or life-threatening deterioration of the [respiratory, cardiovascular & neurologic] system(s) required my full and direct attention, intervention and personal management. The aggregate critical care time was [35] minutes without overlap. Time includes spent on; [x] Data Review and interpretation [x] Patient assessment and monitoring of vital signs [x] Documentation [x] Medication orders and management
--- NOTE | 2019-03-19 09:30 | Consultation ---
History of Present Illness - Reason for Consult Consult date: 03/19/19 acute renal failure - History of Present Illness The patient is a 68 YO male with history significant for Obesity, HTN, DM, OA, HLD and CKD who presented to [facility] ED after he was found down and unresponsive at his home. Patient was intubated and on vent support at time of my evaluation and was unable to provide history. Information was gathered from his sister at the bedside. Patient was intubated in the ED acute hypoxemic respiratory failure and vent support. Patient also found to have sepsis, acute kidney injury, acidosis, and encephalopathy. Patient was initiated on sepsis protocol and admitted to ICU. Labs significant for Creat 2.7, wbc 38 and lactate 2.7. Nephrology was consulted for further evaluation. Past History Past Medical History: arthritis, diabetes, hypertension, hyperlipidemia Past Surgical History: Other (Leg surgery) Social history: single. denies: smoking, alcohol abuse, prescription drug abuse Family history: CAD, diabetes, hypertension Medications and Allergies Allergies Allergy/AdvReac Type Severity Reaction Status Date / Time No Known Allergies Allergy Verified 01/21/16 10:17 Home Medications Medication Instructions Recorded Confirmed Last Taken Type Acetaminophen [Acetaminophen TAB] 2 tab PO Q4H PRN #15 tablet 02/10/19 03/19/19 Unknown Rx Aspirin 325 mg PO QDAY #30 tablet 02/10/19 03/19/19 Unknown Rx Magnesium Hydroxide [Milk of 30 ml PO Q4H PRN #15 oral.liqd 02/10/19 03/19/19 Unknown Rx Magnesia] OLANzapine [ZyPREXA] 2.5 mg PO QDAY #30 tablet 02/10/19 03/19/19 Unknown Rx Pantoprazole [Protonix TAB] 20 mg PO QDAY #30 tablet. 02/10/19 03/19/19 Unknow n Rx Active Meds: Active Medications Heparin Sodium (Porcine) (Heparin) 5,000 unit SUB-Q Q12HR [facility] Last Admin: 03/18/19 23:35 Dose: 5,000 unit Documented by: Propofol (Diprivan 10 Mg/Ml) 1,000 mg in 100 mls @ 2.585 mls/hr IV TITR [facility]; Protocol Last Admin: 03/18/19 16:45 Dose: 5 mcg/kg/min, 2.585 mls/hr Documented by: Levofloxacin/Dextrose (Levaquin 750mg/150ml) 750 mg in 150 mls @ 100 mls/hr IV Q48H [facility]; Protocol Last Infusion: 03/18/19 23:05 Dose: Infused Documented by: Sodium Chloride (Sodium Chloride Flush Syringe 10 Ml) 10 ml IV BID [facility] Last Admin: 03/18/19 23:35 Dose: 10 ml Documented by: Sodium Chloride (Sodium Chloride Flush Syringe 10 Ml) 10 ml IV PRN PRN PRN Reason: LINE FLUSH Review of Systems ROS unobtainable: due to mental status Exam - Vital Signs Vital signs: Vital Signs Pulse Ox 87 03/18/19 13:28 - General Appearance General appearance: well-developed, appears stated age, sedated on ventilator, intubated EENT: ATNC, PERRL Neck: Present: neck supple, trachea midline Respiratory: Clear to Ascultation Heart: regular, S1S2, no murmurs Gastrointestinal: Present: normoactive bowel sounds, other (: Kwok catheter). Absent: tenderness, distended Integumentary: no rash, warm and dry Neurologic: obtunded Musculoskeletal: Present: other (no edema) Results - Lab Results 03/19/19 02:56 03/19/19 02:56 Most recent lab results ABG pH 7.410 pH Units (7.350-7.450) 03/19/19 05:12 ABG pCO2 33.8 mm Hg 03/19/19 05:12 ABG pO2 201.8 mm Hg (80.0-90.0) H 03/19/19 05:12 ABG HCO3 21.0 mmol/L (20.0-26.0) 03/19/19 05:12 ABG O2 Saturation 99.3 % (95.0-99.0) H 03/19/19 05:12 Calcium 8.5 mg/dL (8.4-10.2) D 03/19/19 02:56 Urine Creatinine 142.9 mg/dL (0.1-20.0) H 03/19/19 01:38 Urine Sodium 14 mmol/L 03/19/19 01:38 - Image Kidney/bladder ultrasound: pending Assessment and Plan 1. Acute kidney injury: Vasomotor CRISTÓBAL in the setting of sepsis. Renal US ordered. IV fluids. Monitor renal function. Avoid nephrotoxic agents. Meds dosage based on GFR. 2. FEN: Anion gap metabolic acidosis, 2/2 Lactic acidosis, improving. Monitor lytes. 3. Sepsis: Sepsis protocol. 4. Acute respiratory failure with hypoxia: Intubated on vent. 5. Seizures: Seen by Neuro. 6. DM type 2. 7. Encephalopathy: Multifactorial.
--- NOTE | 2019-03-19 11:00 | Electroencephalogram Report ---
Electroencephalogram EEG Date of exam: 03/18/19 History: change mental status and recurrent facial twitching Description: The waking background shows an appropriate organization with well-defined anterior posterior voltage and frequency gradients. Posteriorly, there is a well-developed rhythm of [4 ] Hz which is symmetrical and bilaterally reactive. Anteriorly, there is a pattern of lower voltage and slightly irregular theta range frequencies. Pt. had X2 spells of left F3 rhythmic activity each lasted X 25-30 second associated with facial twitching During drowsiness, there is attenuation of the background rhythms. Impression 1- This is abnormal record due to a- diffuse slowing in 3-4 Hz bilterally b- two spells of rhythmic activity started on left F3 each lasted 25- 30 seconds iterpretation 1- This finding is suggestive of encephalopathic process and or post ictal stat 2- Possible left partial seizure F3 noted X2 on the EEg moniter Clinical and radiological correlation is in order.
--- NOTE | 2019-03-19 11:51 | Progress Note ---
Assessment and Plan / Sepsis cannot r/o meningitis as presented with seizure, encephalopathy and elevated white count Admited to ICU with Sepsis protocol: IV fluid resuscitation therapy, serial CBC, CMP, lactic acid level, monitor urine output every shift, maintain mean arterial pressure greater than or equal to 60, IV pressor support as clinically indicate d. follow cx report ordered for LP - placed on rocephin and vancomycin, ID consulted / CRISTÓBAL (acute kidney injury)m: IV fluid resuscitation therapy, monitor urine output every shift, strict I's/O, daily weight, / Acidosis IV fluid resuscitation therapy, monitor urine output every shift, IV bicarbonate therapy. / Acute respiratory failure with hypoxia Patient intubated and placed on ventilatory support, daily SBT, sedation holiday, pulmonary toilet, pulmonary team consulted in ED, wean vent as tolerated, cont nebs, / HLD (hyperlipidemia) TF diet for now, statin therapy as clinically indicated. / DM type 2 - SSI as needed /Acute onset seizure, start on keppra - EEG showed + for seizure /Acute encephalopathy - likely from sepsis and seizure - treat underlying cause /DVT prophylaxis SCD to bilateral lower extremities while in bed, prophylactic heparin. The high probability of a clinically significant, sudden or life threatening deterioration of the [cardiac, pulmonary, renal, neurologic] system(s) required my full and direct attention, intervention and personal management. The [facility] critical care time was [35] minutes. This time is in addition to time spent performing reported procedures but includes the following: [x] Data Review and interpretation [x] Patient assessment and monitoring of vital signs [x] Documentation [x] Medication orders and management Subjective Date of service: 03/19/19 Interval history: Patient seen and examined discussed with sister at bedside Patient remained intubated, on sedation afebrile, with elevated white count Objective - Constitutional Vitals: Vital Signs - 12hr 03/18/19 03/19/19 03/19/19 23:55 00:00 00:15 Pulse Rate 124 H 121 H Respiratory 18 17 Rate Blood Pressure 151/87 141/76 O2 Sat by Pulse 98 97 97 Oximetry 03/19/19 03/19/19 03/19/19 00:26 00:30 00:45 Pulse Rate 120 H 121 H 121 H Respiratory 16 17 18 Rate Blood Pressure 141/76 153/81 135/75 O2 Sat by Pulse 98 98 96 Oximetry 03/19/19 03/19/19 03/19/19 01:00 01:15 01:30 Pulse Rate 122 H 120 H 120 H Respiratory 16 15 16 Rate Blood Pressure 152/80 142/78 133/78 O2 Sat by Pulse 97 97 Oximetry 03/19/19 03/19/19 03/19/19 01:45 02:00 02:15 Pulse Rate 120 H 119 H 118 H Respiratory 18 15 16 Rate Blood Pressure 139/84 128/79 123/78 O2 Sat by Pulse 97 96 Oximetry 03/19/19 03/19/19 03/19/19 02:30 02:45 03:00 Pulse Rate 118 H 117 H 118 H Respiratory 16 16 16 Rate Blood Pressure 140/78 144/81 149/81 O2 Sat by Pulse Oximetry 03/19/19 03/19/19 03/19/19 03:15 03:30 03:45 Pulse Rate 117 H 118 H 118 H Respiratory 18 17 15 Rate Blood Pressure 144/81 146/82 142/79 O2 Sat by Pulse 98 Oximetry 03/19/19 03/19/19 03/19/19 03:59 04:00 04:15 Pulse Rate 117 H 118 H 118 H Respiratory 19 17 17 Rate Blood Pressure 138/83 138/83 141/84 O2 Sat by Pulse 99 97 Oximetry 03/19/19 03/19/19 03/19/19 04:30 04:45 05:00 Pulse Rate 116 H 117 H 127 H Respiratory 16 17 27 H Rate Blood Pressure 148/83 147/80 150/83 O2 Sat by Pulse 98 99 Oximetry 03/19/19 03/19/19 03/19/19 05:15 05:30 05:45 Pulse Rate 119 H 118 H 119 H Respiratory 16 18 19 Rate Blood Pressure 142/81 152/81 155/83 O2 Sat by Pulse 99 98 99 Oximetry 03/19/19 03/19/19 03/19/19 06:00 06:15 06:30 Pulse Rate 117 H 116 H 116 H Respiratory 16 16 19 Rate Blood Pressure 146/80 142/83 145/82 O2 Sat by Pulse 98 98 98 Oximetry 03/19/19 03/19/19 03/19/19 06:45 07:00 07:15 Pulse Rate 117 H 115 H 114 H Respiratory 18 17 16 Rate Blood Pressure 156/85 146/82 151/81 O2 Sat by Pulse 99 99 Oximetry 03/19/19 03/19/19 03/19/19 07:30 07:45 08:00 Pulse Rate 115 H 114 H 115 H Respiratory 16 17 17 Rate Blood Pressure 146/81 145/80 148/77 O2 Sat by Pulse 98 99 Oximetry 03/19/19 03/19/19 03/19/19 08:15 08:30 08:45 Pulse Rate 118 H 115 H 116 H Respiratory 17 18 16 Rate Blood Pressure 138/84 141/84 154/82 O2 Sat by Pulse 99 98 Oximetry 03/19/19 03/19/19 03/19/19 09:00 09:15 09:30 Pulse Rate 116 H 115 H 115 H Respiratory 20 17 19 Rate Blood Pressure 154/84 158/82 139/85 O2 Sat by Pulse 98 98 98 Oximetry General appearance: Present: other (intubated and sedated) - EENT Eyes: no scleral icterus, no conjunctival injection ENT: clear oral mucosa Ears: bilateral: normal - Neck Neck: no rigidity, no enlarged thyroid - Respiratory Respiratory effort: other (on mechanical ventilation) Respiratory: bilateral: CTA - Breasts Breasts: normal - Cardiovascular Rhythm: regular Heart Sounds: Present: S1 & S2. Absent: gallop, rub Extremities: pulses intact, No edema, normal color - Gastrointestinal General gastrointestinal: Present: soft, non-tender, non-distended, normal bowel sounds - Integumentary Integumentary: clear, warm, dry - Musculoskeletal Musculoskeletal: other (sedated) - Neurologic Neurologic: other (unable to assess) - Psychiatric Psychiatric: other (sedated and intubated) - Labs CBC & Chem 7: 03/20/19 05:26 03/20/19 05:26 Labs: Abnormal lab results 03/18/19 03/18/19 03/18/19 Range/Units 14:17 14:17 14:17 WBC 38.1 H (4.5-11.0) K/mm3 Hgb (11.8-15.2) gm/dl Hct (35.5-45.6) % MCV 83 L (84-94) fl MCH 27 L (28-32) pg Plt Count 740 H (140-440) K/mm3 Seg Neuts % (Manual) 93.0 H (40.0-70.0) % Lymphocytes % (Manual) 2.5 L (13.4-35.0) % Seg Neutrophils # Man 35.4 H (1.8-7.7) K/mm3 Lymphocytes # (Manual) 1.0 L (1.2-5.4) K/mm3 Monocytes # (Manual) 1.5 H (0.0-0.8) K/mm3 Thrombin Time 14.7 L (15.1-19.6) Sec. ABG pO2 (80.0-90.0) mm Hg ABG O2 Saturation (95.0-99.0) % ABG Base Excess (-2.0-3.0) mmol/L ABG Hemoglobin (14.0-18.0) gm/dl Chloride 94.9 L (98-107) mmol/L Carbon Dioxide 20 L (22-30) mmol/L BUN 34 H (9-20) mg/dL Creatinine 2.7 H (0.8-1.5) mg/dL Glucose 244 H (75-100) mg/dL Lactic Acid (0.7-2.0) mmol/L Calcium 10.6 H (8.4-10.2) mg/dL Total Creatine Kinase (55-170) units/L Troponin T 0.297 H* (0.00-0.029) ng/mL Total Protein (6.3-8.2) g/dL Albumin (3.9-5) g/dL Cholesterol 264 H (50-199) mg/dL LDL Cholesterol Direct 182 H (50-130) mg/dL Ur Specific [place] (1.003-1.030) Urine WBC (Auto) (0.0-6.0) /HPF Urine Creatinine (0.1-20.0) mg/dL 03/18/19 03/18/19 03/18/19 Range/Units 15:33 15:33 17:55 WBC (4.5-11.0) K/mm3 Hgb (11.8-15.2) gm/dl Hct (35.5-45.6) % MCV (84-94) fl MCH (28-32) pg Plt Count (140-440) K/mm3 Seg Neuts % (Manual) (40.0-70.0) % Lymphocytes % (Manual) (13.4-35.0) % Seg Neutrophils # Man (1.8-7.7) K/mm3 Lymphocytes # (Manual) (1.2-5.4) K/mm3 Monocytes # (Manual) (0.0-0.8) K/mm3 Thrombin Time (15.1-19.6) Sec. ABG pO2 (80.0-90.0) mm Hg ABG O2 Saturation (95.0-99.0) % ABG Base Excess (-2.0-3.0) mmol/L ABG Hemoglobin (14.0-18.0) gm/dl Chloride (98-107) mmol/L Carbon Dioxide (22-30) mmol/L BUN (9-20) mg/dL Creatinine (0.8-1.5) mg/dL Glucose (75-100) mg/dL Lactic Acid 2.70 H* 3.00 H* (0.7-2.0) mmol/L Calcium (8.4-10.2) mg/dL Total Creatine Kinase 2896 H (55-170) units/L Troponin T (0.00-0.029) ng/mL Total Protein (6.3-8.2) g/dL Albumin (3.9-5) g/dL Cholesterol (50-199) mg/dL LDL Cholesterol Direct (50-130) mg/dL Ur Specific [place] (1.003-1.030) Urine WBC (Auto) (0.0-6.0) /HPF Urine Creatinine (0.1-20.0) mg/dL 03/18/19 03/18/19 03/18/19 Range/Units 20:22 Unknown Unknown WBC (4.5-11.0) K/mm3 Hgb (11.8-15.2) gm/dl Hct (35.5-45.6) % MCV (84-94) fl MCH (28-32) pg Plt Count (140-440) K/mm3 Seg Neuts % (Manual) (40.0-70.0) % Lymphocytes % (Manual) (13.4-35.0) % Seg Neutrophils # Man (1.8-7.7) K/mm3 Lymphocytes # (Manual) (1.2-5.4) K/mm3 Monocytes # (Manual) (0.0-0.8) K/mm3 Thrombin Time (15.1-19.6) Sec. ABG pO2 183.5 H (80.0-90.0) mm Hg ABG O2 Saturation 99.2 H (95.0-99.0) % ABG Base Excess (-2.0-3.0) mmol/L ABG Hemoglobin 12.7 L (14.0-18.0) gm/dl Chloride (98-107) mmol/L Carbon Dioxide (22-30) mmol/L BUN (9-20) mg/dL Creatinine (0.8-1.5) mg/dL Glucose (75-100) mg/dL Lactic Acid 3.00 H* (0.7-2.0) mmol/L Calcium (8.4-10.2) mg/dL Total Creatine Kinase (55-170) units/L Troponin T (0.00-0.029) ng/mL Total Protein (6.3-8.2) g/dL Albumin (3.9-5) g/dL Cholesterol (50-199) mg/dL LDL Cholesterol Direct (50-130) mg/dL Ur Specific [place] 1.046 H (1.003-1.030) Urine WBC (Auto) 23.0 H (0.0-6.0) /HPF Urine Creatinine (0.1-20.0) mg/dL 03/19/19 03/19/19 03/19/19 Range/Units 01:38 02:56 02:56 WBC 25.4 H (4.5-11.0) K/mm3 Hgb 11.3 L (11.8-15.2) gm/dl Hct 34.1 L D (35.5-45.6) % MCV 83 L (84-94) fl MCH 27 L (28-32) pg Plt Count 496 H (140-440) K/mm3 Seg Neuts % (Manual) 90.0 H (40.0-70.0) % Lymphocytes % (Manual) 3.0 L (13.4-35.0) % Seg Neutrophils # Man 22.9 H (1.8-7.7) K/mm3 Lymphocytes # (Manual) 0.8 L (1.2-5.4) K/mm3 Monocytes # (Manual) 1.8 H (0.0-0.8) K/mm3 Thrombin Time (15.1-19.6) Sec. ABG pO2 (80.0-90.0) mm Hg ABG O2 Saturation (95.0-99.0) % ABG Base Excess (-2.0-3.0) mmol/L ABG Hemoglobin (14.0-18.0) gm/dl Chloride (98-107) mmol/L Carbon Dioxide 20 L (22-30) mmol/L BUN 34 H (9-20) mg/dL Creatinine 2.5 H (0.8-1.5) mg/dL Glucose 208 H (75-100) mg/dL Lactic Acid (0.7-2.0) mmol/L Calcium (8.4-10.2) mg/dL Total Creatine Kinase (55-170) units/L Troponin T (0.00-0.029) ng/mL Total Protein 5.9 L (6.3-8.2) g/dL Albumin 2.9 L (3.9-5) g/dL Cholesterol (50-199) mg/dL LDL Cholesterol Direct (50-130) mg/dL Ur Specific [place] (1.003-1.030) Urine WBC (Auto) (0.0-6.0) /HPF Urine Creatinine 142.9 H (0.1-20.0) mg/dL 03/19/19 Range/Units 05:12 WBC (4.5-11.0) K/mm3 Hgb (11.8-15.2) gm/dl Hct (35.5-45.6) % MCV (84-94) fl MCH (28-32) pg Plt Count (140-440) K/mm3 Seg Neuts % (Manual) (40.0-70.0) % Lymphocytes % (Manual) (13.4-35.0) % Seg Neutrophils # Man (1.8-7.7) K/mm3 Lymphocytes # (Manual) (1.2-5.4) K/mm3 Monocytes # (Manual) (0.0-0.8) K/mm3 Thrombin Time (15.1-19.6) Sec. ABG pO2 201.8 H (80.0-90.0) mm Hg ABG O2 Saturation 99.3 H (95.0-99.0) % ABG Base Excess -2.8 L (-2.0-3.0) mmol/L ABG Hemoglobin (14.0-18.0) gm/dl Chloride (98-107) mmol/L Carbon Dioxide (22-30) mmol/L BUN (9-20) mg/dL Creatinine (0.8-1.5) mg/dL Glucose (75-100) mg/dL Lactic Acid (0.7-2.0) mmol/L Calcium (8.4-10.2) mg/dL Total Creatine Kinase (55-170) units/L Troponin T (0.00-0.029) ng/mL Total Protein (6.3-8.2) g/dL Albumin (3.9-5) g/dL Cholesterol (50-199) mg/dL LDL Cholesterol Direct (50-130) mg/dL Ur Specific [place] (1.003-1.030) Urine WBC (Auto) (0.0-6.0) /HPF Urine Creatinine (0.1-20.0) mg/dL
[2019-03-19] MEDS ORDERED: HEPARIN 5,000 UNIT/1 ML VIAL ONE (11:53)
[2019-03-19] MEDS: HEPARIN 5,000 UNIT/1 ML VIAL SUB-Q SCH ×2 (11:56→21:01)
--- NOTE | 2019-03-19 13:57 | Consultation ---
History of Present Illness Consult date: 03/19/19 Reason for Consult: change in mental status History of present illness: 68-year-old male with HTN, DM, OA, HLD, Obesity presents to ED for evaluation. Patient is intubated and on vent support at time of my evaluation and is unable to provide history. Patient history taken from his sister who lives with him, As per the patient's family the patient was in his usual state of health 2 days ago. Patient was found down and unresponsive at his home. EMS was notified and upon arrival the patient was found to be in distress and subsequently transported to [facility] for further care and evaluation. Patient seen and evaluated in the emergency department. Lab and imaging studies reviewed. Patient was found to have acute hypoxemic respiratory failure and is unable to protect his airway and was subsequently intubated and placed on vent support. Patient also found to have sepsis, acute kidney injury, acidosis, and encephalopathy with possibly witnessed seizure in ER EEG done is remarkable for X2 spells of focal rhythmic galvez from left F# . he is with WBCs 25,000 with neutrophils 22.9% Patient initiated on sepsis protocol and admitted to ICU for medical stabilization due to high risk for decompensation. Past History Past Medical History: arthritis, diabetes, hypertension, hyperlipidemia Past Surgical History: Other (Leg surgery) Social history: single. denies: smoking, alcohol abuse, prescription drug abuse Family history: CAD, diabetes, hypertension Medications and Allergies Allergies Allergy/AdvReac Type Severity Reaction Status Date / Time No Known Allergies Allergy Verified 01/21/16 10:17 Home Medications Medication Instructions Recorded Confirmed Last Taken Type Acetaminophen [Acetaminophen TAB] 2 tab PO Q4H PRN #15 tablet 02/10/19 Unknown Rx Aspirin 325 mg PO QDAY #30 tablet 02/10/19 Unknown Rx Magnesium Hydroxide [Milk of 30 ml PO Q4H PRN #15 oral.liqd 02/10/19 Unknown Rx Magnesia] OLANzapine [ZyPREXA] 2.5 mg PO QDAY #30 tablet 02/10/19 Unknown Rx Pantoprazole [Protonix TAB] 20 mg PO QDAY #30 tablet. 02/10/19 Unknown Rx Review of Systems ROS unobtainable: due to mental status Exam - Constitutional Vitals: Temp Pulse Resp BP Pulse Ox 98.0 F 131 H 28 H 179/66 100 03/18/19 15:13 03/18/19 17:04 03/18/19 17:04 03/18/19 17:04 03/18/19 17:04 Past History Past Medical History: arthritis, diabetes, hypertension, hyperlipidemia Past Surgical History: Other (Leg surgery) Social history: single. denies: smoking, alcohol abuse, prescription drug abuse Family history: CAD, diabetes, hypertension Medications and Allergies Allergies Allergy/AdvReac Type Severity Reaction Status Date / Time No Known Allergies Allergy Verified 01/21/16 10:17 Home Medications Medication Instructions Recorded Confirmed Last Taken Type Acetaminophen [Acetaminophen TAB] 2 tab PO Q4H PRN #15 tablet 02/10/19 03/19/19 Unknown Rx Aspirin 325 mg PO QDAY #30 tablet 02/10/19 03/19/19 Unknown Rx Magnesium Hydroxide [Milk of 30 ml PO Q4H PRN #15 oral.liqd 02/10/19 03/19/19 Unknown Rx Magnesia] OLANzapine [ZyPREXA] 2.5 mg PO QDAY #30 tablet 02/10/19 03/19/19 Unknown Rx Pantoprazole [Protonix TAB] 20 mg PO QDAY #30 tablet. 02/10/19 03/19/19 Unknown Rx Active Meds: Active Medications Famotidine (Pepcid) 20 mg IV DAILY MARTHA Heparin Sodium (Porcine) (Heparin) 5,000 unit SUB-Q Q12HR MARTHA Last Admin: 03/19/19 11:56 Dose: 5,000 unit Documented by: Propofol (Diprivan 10 Mg/Ml) 1,000 mg in 100 mls @ 2.585 mls/hr IV TITR MARTHA; Protocol Last Admin: 03/18/19 16:45 Dose: 5 mcg/kg/min, 2.585 mls/hr Documented by: Levetiracetam 750 mg/ Dextrose 107.5 mls @ 400 mls/hr IV Q12HR MARTHA Ceftriaxone Sodium (Rocephin/Ns 2 Gm/100 Ml) 2 gm in 100 mls @ 200 mls/hr IV Q12HR MARTHA; Protocol Vancomycin HCl (Vancomycin/Ns 1 Gm/250 Ml) 1 gm in 250 mls @ 166.667 mls/hr IV ONCE MARTHA; Protocol Stop: 03/19/19 16:59 Sodium Chloride (Sodium Chloride Flush Syringe 10 Ml) 10 ml IV BID MARTHA Last Admin: 03/19/19 10:00 Dose: 10 ml Documented by: Sodium Chloride (Sodium Chloride Flush Syringe 10 Ml) 10 ml IV PRN PRN PRN Reason: LINE FLUSH Review of Systems ROS unobtainable: due to mental status Physical Examination - Vital Signs Vital Signs: Vital Signs Pulse Ox 87 03/18/19 13:28 - Constitutional General appearance: comfortable - EENT EENT: Present: PERRL - Respiratory Respiratory: Present: chest non-tender, rhonchi (he is intubated on vent. and propofol ) - Cardiovascular Cardiovascular: Present: regular rate, normal S1, normal S2 Extremities: Present: no peripheral edema bilatateraly, no clubbing, cyanosis, no inflammation - Gastrointestinal Gastrointestinal: Present: normoactive bowel sounds - Integumentary Integumentary: Present: normal - Neurologic Cranial nerve examination: PERRL, EOMI, intact gag reflex, intact corneal reflex Speech examination: other (intubated) Detailed motor examination: other (withdraw left side to pain stimuli with right side flaccid , with positive babinski right side) Reflexes: 1+: ankle, bicep, knee, tricep Results - Laboratory Findings CBC and BMP: 03/19/19 02:56 03/19/19 02:56 Abnormal Lab Findings: Abnormal Labs 03/18/19 03/18/19 03/18/19 14:17 14:17 14:17 WBC 38.1 H Hgb Hct MCV 83 L MCH 27 L Plt Count 740 H Seg Neuts % (Manual) 93.0 H Lymphocytes % (Manual) 2.5 L Seg Neutrophils # Man 35.4 H Lymphocytes # (Manual) 1.0 L Monocytes # (Manual) 1.5 H Thrombin Time 14.7 L ABG pO2 ABG O2 Saturation ABG Base Excess ABG Hemoglobin Chloride 94.9 L Carbon Dioxide 20 L BUN 34 H Creatinine 2.7 H Glucose 244 H Lactic Acid Calcium 10.6 H Total Creatine Kinase Troponin T 0.297 H* Total Protein Albumin Cholesterol 264 H LDL Cholesterol Direct 182 H Ur Specific [place] Urine WBC (Auto) Urine Creatinine 03/18/19 03/18/19 03/18/19 15:33 15:33 17:55 WBC Hgb Hct MCV MCH Plt Count Seg Neuts % (Manual) Lymphocytes % (Manual) Seg Neutrophils # Man Lymphocytes # (Manual) Monocytes # (Manual) Thrombin Time ABG pO2 ABG O2 Saturation ABG Base Excess ABG Hemoglobin Chloride Carbon Dioxide BUN Creatinine Glucose Lactic Acid 2.70 H* 3.00 H* Calcium Total Creatine Kinase 2896 H Troponin T Total Protein Albumin Cholesterol LDL Cholesterol Direct Ur Specific [place] Urine WBC (Auto) Urine Creatinine 03/18/19 03/18/19 03/18/19 20:22 Unknown Unknown WBC Hgb Hct MCV MCH Plt Count Seg Neuts % (Manual) Lymphocytes % (Manual) Seg Neutrophils # Man Lymphocytes # (Manual) Monocytes # (Manual) Thrombin Time ABG pO2 183.5 H ABG O2 Saturation 99.2 H ABG Base Excess ABG Hemoglobin 12.7 L Chloride Carbon Dioxide BUN Creatinine Glucose Lactic Acid 3.00 H* Calcium Total Creatine Kinase Troponin T Total Protein Albumin Cholesterol LDL Cholesterol Direct Ur Specific [place] 1.046 H Urine WBC (Auto) 23.0 H Urine Creatinine 03/19/19 03/19/19 03/19/19 01:38 02:56 02:56 WBC 25.4 H Hgb 11.3 L Hct 34.1 L D MCV 83 L MCH 27 L Plt Count 496 H Seg Neuts % (Manual) 90.0 H Lymphocytes % (Manual) 3.0 L Seg Neutrophils # Man 22.9 H Lymphocytes # (Manual) 0.8 L Monocytes # (Manual) 1.8 H Thrombin Time ABG pO2 ABG O2 Saturation ABG Base Excess ABG Hemoglobin Chloride Carbon Dioxide 20 L BUN 34 H Creatinine 2.5 H Glucose 208 H Lactic Acid Calcium Total Creatine Kinase Troponin T Total Protein 5.9 L Albumin 2.9 L Cholesterol LDL Cholesterol Direct Ur Specific [place] Urine WBC (Auto) Urine Creatinine 142.9 H 03/19/19 05:12 WBC Hgb Hct MCV MCH Plt Count Seg Neuts % (Manual) Lymphocytes % (Manual) Seg Neutrophils # Man Lymphocytes # (Manual) Monocytes # (Manual) Thrombin Time ABG pO2 201.8 H ABG O2 Saturation 99.3 H ABG Base Excess -2.8 L ABG Hemoglobin Chloride Carbon Dioxide BUN Creatinine Glucose Lactic Acid Calcium Total Creatine Kinase Troponin T Total Protein Albumin Cholesterol LDL Cholesterol Direct Ur Specific [place] Urine WBC (Auto) Urine Creatinine Assessment and Plan 1-This is 68 ys old male presented to Hospital after fall at home found unresponsive on arrival to hospital X2 witnessed seizure at least he was given Keppra 1000 mg IV , EEG ordered is remarkable for intermittent Rhythmic galvez on left F3 noted is suggestive of left focal seizure [facility] neurology were contacted at time of arrival to ER.. 2- leukocytosis 25.4 K with sepsis can not be excluded ? with [employer] involvement can not be excluded. 3-Acute renal insuff 34/2.5 4- right hemiplegia on exam today with CVA can not be excluded vs Structural lesion ?? 5- Encephalopathy multifactorial 6- Respiratory insuff intubated on arrival PLAN 1- Suggest [facility] ABx cover to include viral encephalitis ? 2- Stat brain MRI with and without Qd. 3- Cut down Keppra dose to 750 mg Iv bid due to renal insuff. 4- Repeat EEG 5- Consider LP r/o meningitis ? bacterial vs viral 6- DVT precaution will follow along Finding D/W ER team ,PCP hospitalist, and family
[2019-03-19] MEDS ORDERED: FAMOTIDINE 20 MG/2 ML INJ IV ONE (14:41)
[2019-03-19] MEDS ORDERED: cefTRIAXone/NS 2 GM/100 ML 2 GM/100 ML BAG IV ONE (14:41)
[2019-03-19] MEDS: FAMOTIDINE 20 MG/2 ML INJ IV SCH (14:42)
[2019-03-19] MEDS: cefTRIAXone/NS 2 GM/100 ML 2 GM/100 ML BAG IV SCH ×2 (14:44→21:00)
[2019-03-19] MEDS ORDERED: SODIUM BICARBONATE 325 MG TAB FEEDTUBE PRN (15:17)
[2019-03-19] MEDS ORDERED: LIPASE 10,500/PROTEASE 25,000/AMYLASE 43,750 (UNITS) DR CAP FEEDTUBE PRN (15:17)
[2019-03-19] MEDS ORDERED: SIMPLE SYRUP 15 ML FEEDTUBE PRN ×2 (15:17)
[2019-03-19] MEDS ORDERED: VANCOMYCIN/NS 1 GM/250 ML 1 GM/250 ML BAG IV SCH (15:30)
[2019-03-19] MEDS ORDERED: PROPOFOL 1,000 MG/100 ML BOTTLE IV ONE (16:17)
[2019-03-19] MEDS: levETIRAcetam 750 MG in DEXTROSE 5% IN WATER 100 ML IV SCH ×2 (16:29→21:01)
[2019-03-19] MEDS: PROPOFOL 1,000 MG/100 ML BOTTLE IV SCH (16:29)
--- NOTE | 2019-03-19 16:36 | Consultation ---
History of Present Illness - Reason for Consult Consult date: 03/19/19 - History of Present Illness 68-year-old male with a past medical history of hypertension, diabetes, obesity admitted to the hospital for unresponsive mental status. Patient is intubated and sedated and as such the history is obtained from chart. Prior to admission the patient was in his usual state of health, however he was found down and unresponsive the day of admission. He was found to have acute hypoxemic respir atory failure and was as such intubated in the emergency room and placed on vent support. This possibly a witnessed seizure in the ER, and an EEG showed seizures. afebrile since admission, tachycardic, white count of 25. He is currently on high dose ceftriaxone and vancomycin. His urine and blood cultures are currently pending Imaging personally reviewed: Chest x-ray: No acute infectious abnormality Past History Past Medical History: arthritis, diabetes, hypertension, hyperlipidemia Past Surgical History: Other (Leg surgery) Social history: single. denies: smoking, alcohol abuse, prescription drug abuse Family history: CAD, diabetes, hypertension Medications and Allergies Allergies Allergy/AdvReac Type Severity Reaction Status Date / Time No Known Allergies Allergy Verified 01/21/16 10:17 Home Medications Medication Instructions Recorded Confirmed Last Taken Type Acetaminophen [Acetaminophen TAB] 2 tab PO Q4H PRN #15 tablet 02/10/19 03/19/19 Unknown Rx Aspirin 325 mg PO QDAY #30 tablet 02/10/19 03/19/19 Unknown Rx Magnesium Hydroxide [Milk of 30 ml PO Q4H PRN #15 oral.liqd 02/10/19 03/19/19 Unknown Rx Magnesia] OLANzapine [ZyPREXA] 2.5 mg PO QDAY #30 tablet 02/10/19 03/19/19 Unknown Rx Pantoprazole [Protonix TAB] 20 mg PO QDAY #30 tablet. 02/10/19 03/19/19 Unknown Rx Active Meds: Active Medications Lipase/Protease/Amylase (Beronica Huggins 10,500 Unit) 1 each FEEDTUBE PRN PRN PRN Reason: For Clogged Feeding Tube Famotidine (Pepcid) 20 mg IV DAILY [facility] Last Admin: 03/19/19 14:42 Dose: 20 mg Documented by: Heparin Sodium (Porcine) (Heparin) 5,000 unit SUB-Q Q12HR [facility] Last Admin: 03/19/19 11:56 Dose: 5,000 unit Documented by: Propofol (Diprivan 10 Mg/Ml) 1,000 mg in 100 mls @ 2.585 mls/hr IV TITR [facility]; Protocol Last Admin: 03/19/19 16:29 Dose: 5 mcg/kg/min, 2.585 mls/hr Documented by: Levetiracetam 750 mg/ Dextrose 107.5 mls @ 400 mls/hr IV Q12HR [facility] Last Admin: 03/19/19 16:29 Dose: 400 mls/hr Documented by: Ceftriaxone Sodium (Rocephin/Ns 2 Gm/100 Ml) 2 gm in 100 mls @ 200 mls/hr IV Q12HR [facility]; Protocol Last Infusion: 03/19/19 15:14 Dose: Infused Documented by: Vancomycin HCl (Vancomycin/Ns 1 Gm/250 Ml) 1 gm in 250 mls @ 166.667 mls/hr IV ONCE MARTHA; Protocol Stop: 03/19/19 16:59 Simple Syrup (Simple Syrup) 15 ml FEEDTUBE PRN PRN PRN Reason: Hypoglycemia Simple Syrup (Simple Syrup) 30 ml FEEDTUBE PRN PRN PRN Reason: Hypoglycemia Sodium Bicarbonate (Sodium Bicarbonate) 325 mg FEEDTUBE PRN PRN PRN Reason: For Clogged Feeding Tube Sodium Chloride (Sodium Chloride Flush Syringe 10 Ml) 10 ml IV BID [facility] Last Admin: 03/19/19 10:00 Dose: 10 ml Documented by: Sodium Chloride (Sodium Chloride Flush Syringe 10 Ml) 10 ml IV PRN PRN PRN Reason: LINE FLUSH Review of Systems ROS unobtainable: due to endotracheal tube, due to mental status Physical Examination - Physical Exam Narrative exam: Constitutional: Intubated, sedated Head, Ears, Nose: Normocephalic, atraumatic. External ears, nose normal Eyes: Conjunctivae/corneas clear. No icterus. No ptosis. Neck: Intubated, Oral: Intubated, Cardiovascular: S1, S2 normal. Respiratory: Good air entry, clear to auscultation bilaterally GI: Soft, non-tender; bowel sounds normal. No peritoneal signs. Musculoskeletal: No pedal edema, no cyanosis. Skin: No rash or abscess Hem/Lymphatic: No palpable cervical or supraclavicular nodes. No lymphangitis Psych: sedated Neurological: Intubated, sedated - Constitutional Vitals: Vital Signs Temp Pulse Resp BP Pulse Ox 99.2 F 118 H 19 161/85 98 03/19/19 14:30 03/19/19 14:45 03/19/19 14:45 03/19/19 14:45 03/19/19 14:45 Temperature -Last 24 Hours Temperature 99.2 F Results - Labs CBC & Chem 7: 03/19/19 02:56 03/19/19 02:56 Labs: Abnormal lab results 03/18/19 03/18/19 03/18/19 Range/Units 15:33 15:33 17:55 WBC (4.5-11.0) K/mm3 Hgb (11.8-15.2) gm/dl Hct (35.5-45.6) % MCV (84-94) fl MCH (28-32) pg Plt Count (140-440) K/mm3 Seg Neuts % (Manual) (40.0-70.0) % Lymphocytes % (Manual) (13.4-35.0) % Seg Neutrophils # Man (1.8-7.7) K/mm3 Lymphocytes # (Manual) (1.2-5.4) K/mm3 Monocytes # (Manual) (0.0-0.8) K/mm3 ABG pO2 (80.0-90.0) mm Hg ABG O2 Saturation (95.0-99.0) % ABG Base Excess (-2.0-3.0) mmol/L ABG Hemoglobin (14.0-18.0) gm/dl Carbon Dioxide (22-30) mmol/L BUN (9-20) mg/dL Creatinine (0.8-1.5) mg/dL Glucose (75-100) mg/dL POC Glucose (70-105) Lactic Acid 2.70 H* 3.00 H* (0.7-2.0) mmol/L Total Creatine Kinase 2896 H (55-170) units/L Total Protein (6.3-8.2) g/dL Albumin (3.9-5) g/dL Ur Specific [place] (1.003-1.030) Urine WBC (Auto) (0.0-6.0) /HPF Urine Creatinine (0.1-20.0) mg/dL 03/18/19 03/18/19 03/18/19 Range/Units 20:22 Unknown Unknown WBC (4.5-11.0) K/mm3 Hgb (11.8-15.2) gm/dl Hct (35.5-45.6) % MCV (84-94) fl MCH (28-32) pg Plt Count (140-440) K/mm3 Seg Neuts % (Manual) (40.0-70.0) % Lymphocytes % (Manual) (13.4-35.0) % Seg Neutrophils # Man (1.8-7.7) K/mm3 Lymphocytes # (Manual) (1.2-5.4) K/mm3 Monocytes # (Manual) (0.0-0.8) K/mm3 ABG pO2 183.5 H (80.0-90.0) mm Hg ABG O2 Saturation 99.2 H (95.0-99.0) % ABG Base Excess (-2.0-3.0) mmol/L ABG Hemoglobin 12.7 L (14.0-18.0) gm/dl Carbon Dioxide (22-30) mmol/L BUN (9-20) mg/dL Creatinine (0.8-1.5) mg/dL Glucose (75-100) mg/dL POC Glucose (70-105) Lactic Acid 3.00 H* (0.7-2.0) mmol/L Total Creatine Kinase (55-170) units/L Total Protein (6.3-8.2) g/dL Albumin (3.9-5) g/dL Ur Specific [place] 1.046 H (1.003-1.030) Urine WBC (Auto) 23.0 H (0.0-6.0) /HPF Urine Creatinine (0.1-20.0) mg/dL 03/19/19 03/19/19 03/19/19 Range/Units 01:38 02:56 02:56 WBC 25.4 H (4.5-11.0) K/mm3 Hgb 11.3 L (11.8-15.2) gm/dl Hct 34.1 L D (35.5-45.6) % MCV 83 L (84-94) fl MCH 27 L (28-32) pg Plt Count 496 H (140-440) K/mm3 Seg Neuts % (Manual) 90.0 H (40.0-70.0) % Lymphocytes % (Manual) 3.0 L (13.4-35.0) % Seg Neutrophils # Man 22.9 H (1.8-7.7) K/mm3 Lymphocytes # (Manual) 0.8 L (1.2-5.4) K/mm3 Monocytes # (Manual) 1.8 H (0.0-0.8) K/mm3 ABG pO2 (80.0-90.0) mm Hg ABG O2 Saturation (95.0-99.0) % ABG Base Excess (-2.0-3.0) mmol/L ABG Hemoglobin (14.0-18.0) gm/dl Carbon Dioxide 20 L (22-30) mmol/L BUN 34 H (9-20) mg/dL Creatinine 2.5 H (0.8-1.5) mg/dL Glucose 208 H (75-100) mg/dL POC Glucose (70-105) Lactic Acid (0.7-2.0) mmol/L Total Creatine Kinase (55-170) units/L Total Protein 5.9 L (6.3-8.2) g/dL Albumin 2.9 L (3.9-5) g/dL Ur Specific [place] (1.003-1.030) Urine WBC (Auto) (0.0-6.0) /HPF Urine Creatinine 142.9 H (0.1-20.0) mg/dL 03/19/19 03/19/19 Range/Units 05:12 14:39 WBC (4.5-11.0) K/mm3 Hgb (11.8-15.2) gm/dl Hct (35.5-45.6) % MCV (84-94) fl MCH (28-32) pg Plt Count (140-440) K/mm3 Seg Neuts % (Manual) (40.0-70.0) % Lymphocytes % (Manual) (13.4-35.0) % Seg Neutrophils # Man (1.8-7.7) K/mm3 Lymphocytes # (Manual) (1.2-5.4) K/mm3 Monocytes # (Manual) (0.0-0.8) K/mm3 ABG pO2 201.8 H (80.0-90.0) mm Hg ABG O2 Saturation 99.3 H (95.0-99.0) % ABG Base Excess -2.8 L (-2.0-3.0) mmol/L ABG Hemoglobin (14.0-18.0) gm/dl Carbon Dioxide (22-30) mmol/L BUN (9-20) mg/dL Creatinine (0.8-1.5) mg/dL Glucose (75-100) mg/dL POC Glucose 185 H (70-105) Lactic Acid (0.7-2.0) mmol/L Total Creatine Kinase (55-170) units/L Total Protein (6.3-8.2) g/dL Albumin (3.9-5) g/dL Ur Specific [place] (1.003-1.030) Urine WBC (Auto) (0.0-6.0) /HPF Urine Creatinine (0.1-20.0) mg/dL Assessment and Plan Cultures: 03/18/2019 urine cultures: Pending 03/18/2019 blood cultures: Pending A&P - 8-year-old male with a past medical history of hypertension, diabetes, obesity admitted after being found down. #SIRS possible sepsis: Present with leukocytosis and tachycardia. Possible meningitis versus encephalitis versus reactive from seizures. #possible meningitis: Agree with empiric high-dose ceftriaxone, vancomycin. Given his age range would also start empiric ampicillin to cover listeriawould also start empiric acyclovir. Patient is pending LP and brain MRI. Would send for HSV PCR from the CSF as well as cultures. #diabetes: Tight glycemic control for [place] function #CRISTÓBAL: renally dose antibiotics as appropriate Recommendations: ceftriaxone 2 g every 12 hours Vancomycin dosed per pharmacy. Goal trough 15-20\ start acyclovir 10mg/kg q24h Start ampicillin 2g q12h HSV PCR from the CSF CSF cultures Thank you for the consult, will follow. John Can MD [facility] ([facility] M: [phone] O: [phone] F: [phone]
--- NOTE | 2019-03-19 18:40 | Magnetic Resonance Report ---
MRI BRAIN 03/19/2019 INDICATION / CLINICAL INFORMATION: CVA. Altered mental status TECHNIQUE: Multiplanar, multisequence MR images of the brain were obtained. COMPARISON: 02/06/2019 FINDINGS: BRAIN / INTRACRANIAL CONTENTS: Unenhanced MR images of the brain demonstrate no evidence of acute abn ormality. Ventricles and sulci are prominent in size, consistent with diffuse cerebral atrophy. There is no evidence of acute ischemic injury, hemorrhage, or mass. There are no abnormal extra-axial fluid collections. EXTRACRANIAL: Unremarkable CRANIOCERVICAL JUNCTION: No significant abnormality. VASCULAR FLOW-VOIDS: No significant abnormality. IMPRESSION: No acute abnormality. No change when compared to the recent prior exam from 02/06/2019. Signer Name: Medardo Rivas MD Signed: 03/19/2019 6:36 PM Workstation Name: [id number]
[2019-03-19] MEDS: AMPICILLIN/NS 2 GM/100 ML 2 GM/100 ML BAG IV SCH (21:54)
[2019-03-19] MEDS ORDERED: ACYCLOVIR IV SCH (22:00)
[2019-03-19] MEDS ORDERED: SODIUM CHLORIDE 0.9% IV SCH (22:00)
[2019-03-20] MEDS ORDERED: DEXTROSE 50% IN WATER (25GM) 50 ML SYRINGE IV PRN (02:38)
[2019-03-20 04:15] LABS: ABG HCO3 20.9 mmol/L (20.0-26.0); ABG Methemoglobin 0.5 % (0.0-1.5); ABG Oxygen Saturation 98.4 % (95.0-99.0); ABG PCO2 33.1 mm Hg; ABG PH 7.419 pH Units (7.350-7.450); ABG PO2 122.8 mm Hg (80.0-90.0)
[2019-03-20] MEDS: INSULIN LISPRO 100 UNIT/ML SUB-Q SCH ×3 (05:16→18:27)
[2019-03-20 05:59] LABS: Basophils # (Auto) 0.1 K/mm3 (0.0-0.1); Basophils % (Auto) 0.6 % (0.0-1.8); Eosinophils % (Auto) 0.2 % (0.0-4.3); Hemoglobin 10.8 gm/dl (11.8-15.2); Lymphocytes # (Auto) 1.1 K/mm3 (1.2-5.4); Lymphocytes % (Auto) 5.4 % (13.4-35.0); Mean Corpuscular HGB Conc 33 % (32-34); Mean Corpuscular Volume 82 fl (84-94); Monocytes # (Auto) 1.4 K/mm3 (0.0-0.8); Platelet Count 426 K/mm3 (140-440); Red Blood Count 4.01 M/mm3 (3.65-5.03); Red Cell Distribution Width 14.6 % (13.2-15.2)
[2019-03-20 06:17] LABS: Calcium 8.9 mg/dL (8.4-10.2)
--- NOTE | 2019-03-20 08:51 | Ultrasound Report ---
ULTRASOUND RENAL INDICATION / CLINICAL INFORMATION: Acute renal failure.. COMPARISON: None available. FINDINGS: RIGHT KIDNEY: Length = 9.6 cm. [normal > 9 cm] - Parenchymal Thickness = 1.0 cm. [normal > 1.5 cm] - Echogenicity: Normal. - Hydronephrosis: None. - Cyst or mass: No significant abnormality. - Stones: None seen. LEFT KIDNEY: Length = 10.7 cm. [normal > 9 cm] - Parenchymal Thickness = 1.6 cm. [normal > 1.5 cm] - Echogenicity: Normal. - Hydronephrosis: None. - Cyst or mass: A 1.9 cm simple cyst is noted in the superior left kidney. - Stones: None seen. URINARY BLADDER: The bladder is empty and contains a Kwok catheter. FREE FLUID: None. ADDITIONAL FINDINGS: None. IMPRESSION: No significant abnormality. 1.9 cm left renal cyst. Signer Name: Pardeep Faustin Jr, MD Signed: 03/20/2019 8:46 AM Workstation Name: [id number]
--- NOTE | 2019-03-20 09:03 | Progress Note ---
Assessment and Plan 1-This is 68 ys old male presented to Hospital after fall at home found unresponsive on arrival to hospital X2 witnessed seizure at least he was given Keppra 1000 mg IV , EEG ordered is remarkable for intermittent Rhythmic galvez on left F3 noted is suggestive of left focal seizure TEL neurology were contacted at time of arrival to ER.. 2- leukocytosis 19 K with sepsis can not be excluded ? 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 3-Acute renal insuff 34/2.5 4- right hemiplegia on exam seems to improve today MRI brain without Gd is normal. 5- Encephalopathy multifactorial 6- Respiratory insuff intubated on arrival PLAN 1- Suggest Broad ABx cover to include viral encephalitis ? 2- Await LP sister agreed to sign consent 3- Keppra dose to 750 mg Iv bid 4- Repeat EEG today 5- DVT precaution will follow along Finding D/W Nursing staff and sister in details Subjective Date of service: 03/20/19 Principal diagnosis: seizure,leukocytosis,altered mentation Interval history: pt. stil intubated on light sedation he seems to move all limbs to day still left > right , no neck rigidity MRI brain done without Qd is unremarkable LP is pending his sister refuse to sign consent form !!!! upset about personal stuff WBCs is down to 19K Objective - Vital Sign Vital Signs - 12hr 03/19/19 03/19/19 03/20/19 23:20 23:26 00:00 Temperature 98.5 F Pulse Rate 110 H Respiratory Rate Blood Pressure 158/84 O2 Sat by Pulse 97 100 Oximetry 03/20/19 03/20/19 03/20/19 03:10 04:00 04:05 Temperature 98.9 F Pulse Rate 108 H Respiratory 4 L Rate Blood Pressure O2 Sat by Pulse 100 100 Oximetry 03/20/19 08:19 Temperature Pulse Rate 108 H Respiratory Rate Blood Pressure 154/78 O2 Sat by Pulse 100 Oximetry - General Apperance Constitutional: comfortable, other (intubated move all limbs) - EENT EENT: PERRL, other (pupils constricted reactive, positive corneal bilateral.) - Cardiovascular Cardiovascular: regular rate Extremities: no peripheral edema bilat, no clubbing, cyanosis - Gastrointestinal Gastrointestinal: normoactive bowel sounds - Integumentary Integumentary: normal - Neurologic Cranial nerve examination: PERRL, EOMI, intact corneal reflex - Laboratory Findings CBC and BMP: 03/20/19 05:26 03/20/19 05:26 Abnormal Lab Findings: Abnormal Labs 03/18/19 03/18/19 03/18/19 14:17 14:17 14:17 WBC 38.1 H Hgb Hct MCV 83 L MCH 27 L Plt Count 740 H Lymph % (Auto) Lymph # [place] # Seg Neutrophils % Seg Neuts % (Manual) 93.0 H Lymphocytes % (Manual) 2.5 L Seg Neutrophils # Seg Neutrophils # Man 35.4 H Lymphocytes # (Manual) 1.0 L Monocytes # (Manual) 1.5 H Thrombin Time 14.7 L ABG pO2 ABG O2 Saturation ABG Base Excess ABG Hemoglobin Chloride 94.9 L Carbon Dioxide 20 L BUN 34 H Creatinine 2.7 H Glucose 244 H POC Glucose Lactic Acid Calcium 10.6 H Total Creatine Kinase Troponin T 0.297 H* Total Protein Albumin Cholesterol 264 H LDL Cholesterol Direct 182 H Ur Specific [place] Urine WBC (Auto) Urine Creatinine 03/18/19 03/18/19 03/18/19 15:33 15:33 17:55 WBC Hgb Hct MCV MCH Plt Count Lymph % (Auto) Lymph # [place] # Seg Neutrophils % Seg Neuts % (Manual) Lymphocytes % (Manual) Seg Neutrophils # Seg Neutrophils # Man Lymphocytes # (Manual) Monocytes # (Manual) Thrombin Time ABG pO2 ABG O2 Saturation ABG Base Excess ABG Hemoglobin Chloride Carbon Dioxide BUN Creatinine Glucose POC Glucose Lactic Acid 2.70 H* 3.00 H* Calcium Total Creatine Kinase 2896 H Troponin T Total Protein Albumin Cholesterol LDL Cholesterol Direct Ur Specific [place] Urine WBC (Auto) Urine Creatinine 03/18/19 03/18/19 03/18/19 20:22 Unknown Unknown WBC Hgb Hct MCV MCH Plt Count Lymph % (Auto) Lymph # [place] # Seg Neutrophils % Seg Neuts % (Manual) Lymphocytes % (Manual) Seg Neutrophils # Seg Neutrophils # Man Lymphocytes # (Manual) Monocytes # (Manual) Thrombin Time ABG pO2 183.5 H ABG O2 Saturation 99.2 H ABG Base Excess ABG Hemoglobin 12.7 L Chloride Carbon Dioxide BUN Creatinine Glucose POC Glucose Lactic Acid 3.00 H* Calcium Total Creatine Kinase Troponin T Total Protein Albumin Cholesterol LDL Cholesterol Direct Ur Specific [place] 1.046 H Urine WBC (Auto) 23.0 H Urine Creatinine 03/19/19 03/19/1920 01:38 02:56 02:56 WBC 25.4 H Hgb 11.3 L Hct 34.1 L D MCV 83 L MCH 27 L Plt Count 496 H Lymph % (Auto) Lymph # [place] # Seg Neutrophils % Seg Neuts % (Manual) 90.0 H Lymphocytes % (Manual) 3.0 L Seg Neutrophils # Seg Neutrophils # Man 22.9 H Lymphocytes # (Manual) 0.8 L Monocytes # (Manual) 1.8 H Thrombin Time ABG pO2 ABG O2 Saturation ABG Base Excess ABG Hemoglobin Chloride Carbon Dioxide 20 L BUN 34 H Creatinine 2.5 H Glucose 208 H POC Glucose Lactic Acid Calcium Total Creatine Kinase Troponin T Total Protein 5.9 L Albumin 2.9 L Cholesterol LDL Cholesterol Direct Ur Specific [place] Urine WBC (Auto) Urine Creatinine 142.9 H 03/19/19 03/19/19 03/19/19 05:12 14:39 23:08 WBC Hgb Hct MCV MCH Plt Count Lymph % (Auto) Lymph # [place] # Seg Neutrophils % Seg Neuts % (Manual) Lymphocytes % (Manual) Seg Neutrophils # Seg Neutrophils # Man Lymphocytes # (Manual) Monocytes # (Manual) Thrombin Time ABG pO2 201.8 H ABG O2 Saturation 99.3 H ABG Base Excess -2.8 L ABG Hemoglobin Chloride Carbon Dioxide BUN Creatinine Glucose POC Glucose 185 H Lactic Acid Calcium Total Creatine Kinase Troponin T 0.200 H* D Total Protein Albumin Cholesterol LDL Cholesterol Direct Ur Specific [place] Urine WBC (Auto) Urine Creatinine 03/20/19 03/20/19 03/20/19 00:12 03:44 05:19 WBC Hgb Hct MCV MCH Plt Count Lymph % (Auto) Lymph # [place] # Seg Neutrophils % Seg Neuts % (Manual) Lymphocytes % (Manual) Seg Neutrophils # Seg Neutrophils # Man Lymphocytes # (Manual) Monocytes # (Manual) Thrombin Time ABG pO2 122.8 H ABG O2 Saturation ABG Base Excess -3.0 L ABG Hemoglobin 8.9 L Chloride Carbon Dioxide BUN Creatinine Glucose POC Glucose 193 H 202 H Lactic Acid Calcium Total Creatine Kinase Troponin T Total Protein Albumin Cholesterol LDL Cholesterol Direct Ur Specific [place] Urine WBC (Auto) Urine Creatinine 03/20/19 03/20/19 03/20/19 05:26 05:26 05:26 WBC 19.5 H Hgb 10.8 L Hct 33.0 L MCV 82 L MCH 27 L Plt Count Lymph % (Auto) 5.4 L Lymph # 1.1 L [place] # 1.4 H Seg Neutrophils % 86.8 H Seg Neuts % (Manual) Lymphocytes % (Manual) Seg Neutrophils # 16.9 H Seg Neutrophils # Man Lymphocytes # (Manual) Monocytes # (Manual) Thrombin Time ABG pO2 ABG O2 Saturation ABG Base Excess ABG Hemoglobin Chloride 110.5 H Carbon Dioxide 17 L BUN 41 H Creatinine 2.6 H Glucose 199 H POC Glucose Lactic Acid Calcium Total Creatine Kinase 396 H Troponin T 0.191 H* Total Protein Albumin Cholesterol LDL Cholesterol Direct Ur Specific [place] Urine WBC (Auto) Urine Creatinine
[2019-03-20] MEDS ORDERED: SODIUM CHLORIDE 0.9% IV SCH (10:00)
[2019-03-20] MEDS ORDERED: ACYCLOVIR IV SCH (10:00)
[2019-03-20] MEDS: cefTRIAXone/NS 2 GM/100 ML 2 GM/100 ML BAG IV SCH ×2 (10:28→22:08)
[2019-03-20] MEDS: levETIRAcetam 750 MG in DEXTROSE 5% IN WATER 100 ML IV SCH ×2 (10:28→22:08)
[2019-03-20] MEDS: AMPICILLIN/NS 2 GM/100 ML 2 GM/100 ML BAG IV SCH ×2 (10:28→22:07)
[2019-03-20] MEDS: FAMOTIDINE 20 MG/2 ML INJ IV SCH (10:28)
[2019-03-20] MEDS: HEPARIN 5,000 UNIT/1 ML VIAL SUB-Q SCH ×2 (10:58→22:03)
[2019-03-20] MEDS ORDERED: VANCOMYCIN 1,250 MG in SODIUM CHLORIDE 0.9% 250ML 250 ML IV ONE (11:30)
--- NOTE | 2019-03-20 12:19 | Progress Note ---
Assessment and Plan 1. Acute kidney injury: Vasomotor CRISTÓBAL in the setting of sepsis. Renal US negative for hydro. Creatinine level about the same. Start on IV fluids. Monitor renal function. Avoid nephrotoxic agents. Meds dosage based on GFR. 2. FEN: Anion gap metabolic acidosis, 2/2 Lactic acidosis, monitor. Monitor lytes. 3. Sepsis: Sepsis protocol. 4. Acute respiratory failure with hypoxia: Intubated on vent. 5. Seizures: Seen by Neuro. 6. DM type 2. 7. Encephalopathy: Multifactorial. Examination: General appearance: well-developed, appears stated age, intubated, ventilator, intubated HEENT: ATNC, DALIA Neck: trachea midline Respiratory: Clear to Ascultation Heart: regular, S1S2, no murmur Gastrointestinal: soft, normoactive bowel sounds, not tenderness, not distended Integumentary: no rash, warm and dry Neurologic: obtunded : Kwok catheter Musculoskeletal: no edema Subjective Date of service: 03/20/19 Principal diagnosis: seizure,leukocytosis,altered mentation Interval history: Patient was seen and examined at the bedside. Objective - Vital Signs Vital signs: Vital Signs - 12hr 03/20/19 03/20/19 03/20/19 03:10 03:50 04:00 Temperature 98.9 F Pulse Rate 116 H 110 H Pulse Rate [ From Monitor] Respiratory 19 17 Rate Blood Pressure 142/82 142/82 O2 Sat by Pulse 100 100 Oximetry 03/20/19 03/20/19 03/20/19 04:05 04:10 04:20 Temperature Pulse Rate 108 H 109 H 103 H Pulse Rate [ From Monitor] Respiratory 4 L 19 17 Rate Blood Pressure 135/62 O2 Sat by Pulse 100 100 100 Oximetry 03/20/19 03/20/19 03/20/19 04:30 04:40 04:50 Temperature Pulse Rate 104 H 107 H 107 H Pulse Rate [ From Monitor] Respiratory 16 17 20 Rate Blood Pressure 135/65 135/65 141/68 O2 Sat by Pulse 100 100 100 Oximetry 03/20/19 03/20/19 03/20/19 05:00 05:10 05:20 Temperature Pulse Rate 112 H 102 H 107 H Pulse Rate [ From Monitor] Respiratory 18 16 16 Rate Blood Pressure 140/83 140/83 139/75 O2 Sat by Pulse 100 100 100 Oximetry 03/20/19 03/20/19 03/20/19 05:30 05:40 05:50 Temperature Pulse Rate 108 H 111 H 110 H Pulse Rate [ From Monitor] Respiratory 20 17 18 Rate Blood Pressure 142/74 142/74 110/65 O2 Sat by Pulse 100 100 100 Oximetry 03/20/19 03/20/19 03/20/19 06:00 06:10 06:20 Temperature Pulse Rate 108 H 108 H 110 H Pulse Rate [ From Monitor] Respiratory 17 17 18 Rate Blood Pressure 113/71 113/71 110/65 O2 Sat by Pulse 98 100 100 Oximetry 03/20/19 03/20/19 03/20/19 06:30 06:40 06:50 Temperature Pulse Rate 109 H 112 H 107 H Pulse Rate [ From Monitor] Respiratory 18 21 18 Rate Blood Pressure 109/63 109/63 134/70 O2 Sat by Pulse 100 100 100 Oximetry 03/20/19 03/20/19 03/20/19 07:00 07:10 07:20 Temperature Pulse Rate 117 H 111 H 107 H Pulse Rate [ From Monitor] Respiratory 19 20 17 Rate Blood Pressure 138/76 138/76 129/66 O2 Sat by Pulse 97 100 100 Oximetry 03/20/19 03/20/19 03/20/19 07:30 07:40 07:50 Temperature Pulse Rate 108 H 110 H 110 H Pulse Rate [ From Monitor] Respiratory 19 18 18 Rate Blood Pressure 111/63 111/63 102/61 O2 Sat by Pulse 96 98 98 Oximetry 03/20/19 03/20/19 03/20/19 08:00 08:10 08:19 Temperature 98.9 F Pulse Rate 107 H 116 H 108 H Pulse Rate [ 108 H From Monitor] Respiratory 16 21 Rate Blood Pressure 105/63 105/63 154/78 O2 Sat by Pulse 98 98 100 Oximetry 03/20/19 03/20/19 03/20/19 08:20 08:30 08:40 Temperature Pulse Rate 108 H 109 H 107 H Pulse Rate [ From Monitor] Respiratory 19 19 18 Rate Blood Pressure 154/78 143/66 143/66 O2 Sat by Pulse 99 97 99 Oximetry 03/20/19 03/20/19 03/20/19 08:50 09:00 09:10 Temperature Pulse Rate 107 H 109 H 107 H Pulse Rate [ From Monitor] Respiratory 17 18 19 Rate Blood Pressure 127/66 126/70 126/70 O2 Sat by Pulse 99 99 100 Oximetry 03/20/19 03/20/19 03/20/19 09:20 09:30 09:40 Temperature Pulse Rate 110 H 104 H 108 H Pulse Rate [ From Monitor] Respiratory 18 18 18 Rate Blood Pressure 124/66 141/68 127/66 O2 Sat by Pulse 98 99 99 Oximetry 03/20/19 03/20/19 03/20/19 09:50 10:00 10:10 Temperature Pulse Rate 110 H 110 H 107 H Pulse Rate [ From Monitor] Respiratory 17 17 18 Rate Blood Pressure 120/64 116/65 116/65 O2 Sat by Pulse 99 95 99 Oximetry 03/20/19 03/20/19 03/20/19 10:20 10:30 10:40 Temperature Pulse Rate 112 H 112 H 108 H Pulse Rate [ From Monitor] Respiratory 19 22 18 Rate Blood Pressure 124/64 148/77 116/65 O2 Sat by Pulse 99 99 100 Oximetry 03/20/19 03/20/19 03/20/19 10:50 11:00 11:10 Temperature Pulse Rate 104 H 113 H 113 H Pulse Rate [ From Monitor] Respiratory 16 23 21 Rate Blood Pressure 157/73 165/73 153/76 O2 Sat by Pulse 99 98 100 Oximetry 03/20/19 03/20/19 03/20/19 11:20 11:30 11:40 Temperature Pulse Rate 116 H 112 H 109 H Pulse Rate [ From Monitor] Respiratory 21 22 17 Rate Blood Pressure 162/80 169/79 169/79 O2 Sat by Pulse 100 100 99 Oximetry 03/20/19 03/20/19 11:50 12:00 Temperature 98.6 F Pulse Rate 115 H 109 H Pulse Rate [ 108 H From Monitor] Respiratory 18 19 Rate Blood Pressure 172/63 146/65 O2 Sat by Pulse 99 100 Oximetry - Lab 03/20/19 05:26 03/20/19 05:26 Most recent lab results ABG pH 7.419 pH Units (7.350-7.450) 03/20/19 03:44 ABG pCO2 33.1 mm Hg 03/20/19 03:44 ABG pO2 122.8 mm Hg (80.0-90.0) H 03/20/19 03:44 ABG HCO3 20.9 mmol/L (20.0-26.0) 03/20/19 03:44 ABG O2 Saturation 98.4 % (95.0-99.0) 03/20/19 03:44 Calcium 8.9 mg/dL (8.4-10.2) 03/20/19 05:26 Urine Creatinine 142.9 mg/dL (0.1-20.0) H 03/19/19 01:38 Urine Sodium 14 mmol/L 03/19/19 01:38 Medications & Allergies - Medications Allergies/Adverse Reactions: Allergies No Known Allergies Allergy (Verified 01/21/16 10:17) Home Medications: Home Medications Medication Instructions Recorded Confirmed Last Taken Type Acetaminophen [Acetaminophen TAB] 2 tab PO Q4H PRN #15 tablet 02/10/19 03/19/19 Unknown Rx Aspirin 325 mg PO QDAY #30 tablet 02/10/19 03/19/19 Unknown Rx Magnesium Hydroxide [Milk of 30 ml PO Q4H PRN #15 oral.liqd 02/10/19 03/19/19 Unknown Rx Magnesia] OLANzapine [ZyPREXA] 2.5 mg PO QDAY #30 tablet 02/10/19 03/19/19 Unknown Rx Pantoprazole [Protonix TAB] 20 mg PO QDAY #30 tablet. 02/10/19 03/19/19 Unknown Rx Active Medications: Generic Name Dose Route Start Last Admin Trade Name Freq PRN Reason Stop Dose Admin Lipase/Protease/Amylase 1 each 03/19/19 15:17 Pancreaze 10,500 Unit FEEDTUBE PRN PRN For Clogged Feeding Tube Dextrose 0 ml 03/20/19 02:38 D50w (25gm) Syringe IV Q30MIN PRN Hypoglycemia Protocol Famotidine 20 mg 03/19/19 14:00 03/20/19 10:28 Pepcid IV 20 mg DAILY MARTHA Administration Heparin Sodium (Porcine) 5,000 unit 03/18/19 22:00 03/20/19 10:58 Heparin SUB-Q Not Given Q12HR MARTHA Levetiracetam 750 mg/ Dextrose 107.5 mls @ 400 mls/hr 03/19/19 12:00 03/20/19 10:28 IV 400 mls/hr Q12HR MARTHA Administration Ceftriaxone Sodium 2 gm in 100 mls @ 200 mls/hr 03/19/19 14:00 03/20/19 10:28 Rocephin/Ns 2 Gm/100 Ml IV 200 mls/hr Q12HR MARTHA Administration Protocol Ampicillin Sodium 2 gm in 100 mls @ 100 mls/hr 03/19/19 22:00 03/20/19 10:28 Ampicillin/Ns 2 Gm/100 Ml IV 100 mls/hr Q12HR MARTHA Administration Protocol Acyclovir 860 mg/ Sodium 117.2 mls @ 100 mls/hr 03/20/19 10:00 03/20/19 11:29 Chloride IV 100 mls/hr Q24HR MARTHA Administration Protocol Vancomycin HCl 1,250 mg/ 275 mls @ 166.667 mls/hr 03/20/19 11:30 03/20/19 11:49 Sodium Chloride IV 03/20/19 13:08 166.667 mls/hr ONCE ONE Administration Insulin Human Lispro 0 unit 03/20/19 06:00 03/20/19 11:49 Humalog SUB-Q 2 unit Q6HR MARTHA Administration Protocol Simple Syrup 15 ml 03/19/19 15:17 Simple Syrup FEEDTUBE PRN PRN Hypoglycemia Simple Syrup 30 ml 03/19/19 15:17 Simple Syrup FEEDTUBE PRN PRN Hypoglycemia Sodium Bicarbonate 325 mg 03/19/19 15:17 Sodium Bicarbonate FEEDTUBE PRN PRN For Clogged Feeding Tube Sodium Chloride 10 ml 03/18/19 22:00 03/20/19 10:33 Sodium Chloride Flush Syringe 10 Ml IV 10 ml BID MARTHA Administration Sodium Chloride 10 ml 03/18/19 17:32 Sodium Chloride Flush Syringe 10 Ml IV PRN PRN LINE FLUSH
--- NOTE | 2019-03-20 12:34 | Progress Note ---
Subjective Date of service: 03/20/19 Principal diagnosis: seizure,leukocytosis,altered mentation Objective Vital Signs - 12hr 03/20/19 03/20/19 03/20/19 03:10 03:50 04:00 Temperature 98.9 F Pulse Rate 116 H 110 H Pulse Rate [ From Monitor] Respiratory 19 17 Rate Blood Pressure 142/82 142/82 O2 Sat by Pulse 100 100 Oximetry 03/20/19 03/20/19 03/20/19 04:05 04:10 04:20 Temperature Pulse Rate 108 H 109 H 103 H Pulse Rate [ From Monitor] Respiratory 4 L 19 17 Rate Blood Pressure 135/62 O2 Sat by Pulse 100 100 100 Oximetry 03/20/19 03/20/19 03/20/19 04:30 04:40 04:50 Temperature Pulse Rate 104 H 107 H 107 H Pulse Rate [ From Monitor] Respiratory 16 17 20 Rate Blood Pressure 135/65 135/65 141/68 O2 Sat by Pulse 100 100 100 Oximetry 03/20/19 03/20/19 03/20/19 05:00 05:10 05:20 Temperature Pulse Rate 112 H 102 H 107 H Pulse Rate [ From Monitor] Respiratory 18 16 16 Rate Blood Pressure 140/83 140/83 139/75 O2 Sat by Pulse 100 100 100 Oximetry 03/20/19 03/20/19 03/20/19 05:30 05:40 05:50 Temperature Pulse Rate 108 H 111 H 110 H Pulse Rate [ From Monitor] Respiratory 20 17 18 Rate Blood Pressure 142/74 142/74 110/65 O2 Sat by Pulse 100 100 100 Oximetry 03/20/19 03/20/19 03/20/19 06:00 06:10 06:20 Temperature Pulse Rate 108 H 108 H 110 H Pulse Rate [ From Monitor] Respiratory 17 17 18 Rate Blood Pressure 113/71 113/71 110/65 O2 Sat by Pulse 98 100 100 Oximetry 03/20/19 03/20/19 03/20/19 06:30 06:40 06:50 Temperature Pulse Rate 109 H 112 H 107 H Pulse Rate [ From Monitor] Respiratory 18 21 18 Rate Blood Pressure 109/63 109/63 134/70 O2 Sat by Pulse 100 100 100 Oximetry 03/20/19 03/20/19 03/20/19 07:00 07:10 07:20 Temperature Pulse Rate 117 H 111 H 107 H Pulse Rate [ From Monitor] Respiratory 19 20 17 Rate Blood Pressure 138/76 138/76 129/66 O2 Sat by Pulse 97 100 100 Oximetry 03/20/19 03/20/19 03/20/19 07:30 07:40 07:50 Temperature Pulse Rate 108 H 110 H 110 H Pulse Rate [ From Monitor] Respiratory 19 18 18 Rate Blood Pressure 111/63 111/63 102/61 O2 Sat by Pulse 96 98 98 Oximetry 03/20/19 03/20/19 03/20/19 08:00 08:10 08:19 Temperature 98.9 F Pulse Rate 107 H 116 H 108 H Pulse Rate [ 108 H From Monitor] Respiratory 16 21 Rate Blood Pressure 105/63 105/63 154/78 O2 Sat by Pulse 98 98 100 Oximetry 03/20/19 03/20/19 03/20/19 08:20 08:30 08:40 Temperature Pulse Rate 108 H 109 H 107 H Pulse Rate [ From Monitor] Respiratory 19 19 18 Rate Blood Pressure 154/78 143/66 143/66 O2 Sat by Pulse 99 97 99 Oximetry 03/20/19 03/20/19 03/20/19 08:50 09:00 09:10 Temperature Pulse Rate 107 H 109 H 107 H Pulse Rate [ From Monitor] Respiratory 17 18 19 Rate Blood Pressure 127/66 126/70 126/70 O2 Sat by Pulse 99 99 100 Oximetry 03/20/19 03/20/19 03/20/19 09:20 09:30 09:40 Temperature Pulse Rate 110 H 104 H 108 H Pulse Rate [ From Monitor] Respiratory 18 18 18 Rate Blood Pressure 124/66 141/68 127/66 O2 Sat by Pulse 98 99 99 Oximetry 03/20/19 03/20/19 03/20/19 09:50 10:00 10:10 Temperature Pulse Rate 110 H 110 H 107 H Pulse Rate [ From Monitor] Respiratory 17 17 18 Rate Blood Pressure 120/64 116/65 116/65 O2 Sat by Pulse 99 95 99 Oximetry 03/20/19 03/20/19 03/20/19 10:20 10:30 10:40 Temperature Pulse Rate 112 H 112 H 108 H Pulse Rate [ From Monitor] Respiratory 19 22 18 Rate Blood Pressure 124/64 148/77 116/65 O2 Sat by Pulse 99 99 100 Oximetry 03/20/19 03/20/19 03/20/19 10:50 11:00 11:10 Temperature Pulse Rate 104 H 113 H 113 H Pulse Rate [ From Monitor] Respiratory 16 23 21 Rate Blood Pressure 157/73 165/73 153/76 O2 Sat by Pulse 99 98 100 Oximetry 03/20/19 03/20/19 03/20/19 11:20 11:30 11:40 Temperature Pulse Rate 116 H 112 H 109 H Pulse Rate [ From Monitor] Respiratory 21 22 17 Rate Blood Pressure 162/80 169/79 169/79 O2 Sat by Pulse 100 100 99 Oximetry 03/20/19 03/20/19 11:50 12:00 Temperature 98.6 F Pulse Rate 115 H 109 H Pulse Rate [ 108 H From Monitor] Respiratory 18 19 Rate Blood Pressure 172/63 146/65 O2 Sat by Pulse 99 100 Oximetry Gastrointestinal: normoactive bowel sounds Integumentary: normal CBC and BMP: 03/20/19 05:26 03/20/19 05:26 ABG, PT/INR, D-dimer: ABG ABG pH 7.419 pH Units (7.350-7.450) 03/20/19 03:44 ABG pCO2 33.1 mm Hg 03/20/19 03:44 ABG pO2 122.8 mm Hg (80.0-90.0) H 03/20/19 03:44 ABG O2 Saturation 98.4 % (95.0-99.0) 03/20/19 03:44 PT/INR, D-dimer PT 14.4 Sec. (12.2-14.9) 03/18/19 14:17 INR 1.11 (0.87-1.13) 03/18/19 14:17 Abnormal lab findings: Abnormal Labs 03/18/19 03/18/19 03/18/19 14:17 14:17 14:17 WBC 38.1 H Hgb Hct MCV 83 L MCH 27 L Plt Count 740 H Lymph % (Auto) Lymph # [place] # Seg Neutrophils % Seg Neuts % (Manual) 93.0 H Lymphocytes % (Manual) 2.5 L Seg Neutrophils # Seg Neutrophils # Man 35.4 H Lymphocytes # (Manual) 1.0 L Monocytes # (Manual) 1.5 H Thrombin Time 14.7 L ABG pO2 ABG O2 Saturation ABG Base Excess ABG Hemoglobin Chloride 94.9 L Carbon Dioxide 20 L BUN 34 H Creatinine 2.7 H Glucose 244 H POC Glucose Lactic Acid Calcium 10.6 H Total Creatine Kinase Troponin T 0.297 H* Total Protein Albumin Cholesterol 264 H LDL Cholesterol Direct 182 H Ur Specific [place] Urine WBC (Auto) Urine Creatinine 03/18/19 03/18/19 03/18/19 15:33 15:33 17:55 WBC Hgb Hct MCV MCH Plt Count Lymph % (Auto) Lymph # [place] # Seg Neutrophils % Seg Neuts % (Manual) Lymphocytes % (Manual) Seg Neutrophils # Seg Neutrophils # Man Lymphocytes # (Manual) Monocytes # (Manual) Thrombin Time ABG pO2 ABG O2 Saturation ABG Base Excess ABG Hemoglobin Chloride Carbon Dioxide BUN Creatinine Glucose POC Glucose Lactic Acid 2.70 H* 3.00 H* Calcium Total Creatine Kinase 2896 H Troponin T Total Protein Albumin Cholesterol LDL Cholesterol Direct Ur Specific [place] Urine WBC (Auto) Urine Creatinine 03/18/19 03/18/19 03/18/19 20:22 Unknown Unknown WBC Hgb Hct MCV MCH Plt Count Lymph % (Auto) Lymph # [place] # Seg Neutrophils % Seg Neuts % (Manual) Lymphocytes % (Manual) Seg Neutrophils # Seg Neutrophils # Man Lymphocytes # (Manual) Monocytes # (Manual) Thrombin Time ABG pO2 183.5 H ABG O2 Saturation 99.2 H ABG Base Excess ABG Hemoglobin 12.7 L Chloride Carbon Dioxide BUN Creatinine Glucose POC Glucose Lactic Acid 3.00 H* Calcium Total Creatine Kinase Troponin T Total Protein Albumin Cholesterol LDL Cholesterol Direct Ur Specific [place] 1.046 H Urine WBC (Auto) 23.0 H Urine Creatinine 03/19/19 03/19/19 03/19/19 01:38 02:56 02:56 WBC 25.4 H Hgb 11.3 L Hct 34.1 L D MCV 83 L MCH 27 L Plt Count 496 H Lymph % (Auto) Lymph # [place] # Seg Neutrophils % Seg Neuts % (Manual) 90.0 H Lymphocytes % (Manual) 3.0 L Seg Neutrophils # Seg Neutrophils # Man 22.9 H Lymphocytes # (Manual) 0.8 L Monocytes # (Manual) 1.8 H Thrombin Time ABG pO2 ABG O2 Saturation ABG Base Excess ABG Hemoglobin Chloride Carbon Dioxide 20 L BUN 34 H Creatinine 2.5 H Glucose 208 H POC Glucose Lactic Acid Calcium Total Creatine Kinase Troponin T Total Protein 5.9 L Albumin 2.9 L Cholesterol LDL Cholesterol Direct Ur Specific [place] Urine WBC (Auto) Urine Creatinine 142.9 H 03/19/19 03/19/19 03/19/19 05:12 14:39 23:08 WBC Hgb Hct MCV MCH Plt Count Lymph % (Auto) Lymph # [place] # Seg Neutrophils % Seg Neuts % (Manual) Lymphocytes % (Manual) Seg Neutrophils # Seg Neutrophils # Man Lymphocytes # (Manual) Monocytes # (Manual) Thrombin Time ABG pO2 201.8 H ABG O2 Saturation 99.3 H ABG Base Excess -2.8 L ABG Hemoglobin Chloride Carbon Dioxide BUN Creatinine Glucose POC Glucose 185 H Lactic Acid Calcium Total Creatine Kinase Troponin T 0.200 H* D Total Protein Albumin Cholesterol LDL Cholesterol Direct Ur Specific [place] Urine WBC (Auto) Urine Creatinine 03/20/19 03/20/19 03/20/19 00:12 03:44 05:19 WBC Hgb Hct MCV MCH Plt Count Lymph % (Auto) Lymph # [place] # Seg Neutrophils % Seg Neuts % (Manual) Lymphocytes % (Manual) Seg Neutrophils # Seg Neutrophils # Man Lymphocytes # (Manual) Monocytes # (Manual) Thrombin Time ABG pO2 122.8 H ABG O2 Saturation ABG Base Excess -3.0 L ABG Hemoglobin 8.9 L Chloride Carbon Dioxide BUN Creatinine Glucose POC Glucose 193 H 202 H Lactic Acid Calcium Total Creatine Kinase Troponin T Total Protein Albumin Cholesterol LDL Cholesterol Direct Ur Specific [place] Urine WBC (Auto) Urine Creatinine 03/20/19 03/20/19 03/20/19 05:26 05:26 05:26 WBC 19.5 H Hgb 10.8 L Hct 33.0 L MCV 82 L MCH 27 L Plt Count Lymph % (Auto) 5.4 L Lymph # 1.1 L [place] # 1.4 H Seg Neutrophils % 86.8 H Seg Neuts % (Manual) Lymphocytes % (Manual) Seg Neutrophils # 16.9 H Seg Neutrophils # Man Lymphocytes # (Manual) Monocytes # (Manual) Thrombin Time ABG pO2 ABG O2 Saturation ABG Base Excess ABG Hemoglobin Chloride 110.5 H Carbon Dioxide 17 L BUN 41 H Creatinine 2.6 H Glucose 199 H POC Glucose Lactic Acid Calcium Total Creatine Kinase 396 H Troponin T 0.191 H* Total Protein Albumin Cholesterol LDL Cholesterol Direct Ur Specific [place] Urine WBC (Auto) Urine Creatinine 03/20/19 11:33 WBC Hgb Hct MCV MCH Plt Count Lymph % (Auto) Lymph # [place] # Seg Neutrophils % Seg Neuts % (Manual) Lymphocytes % (Manual) Seg Neutrophils # Seg Neutrophils # Man Lymphocytes # (Manual) Monocytes # (Manual) Thrombin Time ABG pO2 ABG O2 Saturation ABG Base Excess ABG Hemoglobin Chloride Carbon Dioxide BUN Creatinine Glucose POC Glucose 196 H Lactic Acid Calcium Total Creatine Kinase Troponin T Total Protein Albumin Cholesterol LDL Cholesterol Direct Ur Specific [place] Urine WBC (Auto) Urine Creatinine
[2019-03-20] MEDS ORDERED: LORazepam 2 MG/ML VIAL IV ONE (13:30)
[2019-03-20] MEDS ORDERED: VANCOMYCIN PHARMACY TO DOSE IV SCH (14:00)
[2019-03-20 14:37] LABS: Glucose,CSF 108 mg/dL
--- NOTE | 2019-03-20 14:52 | Electroencephalogram Report ---
Electroencephalogram EEG Date of exam: 03/20/19 Impression: This is mostly asleep record noted through out the recording , no clear epileptiform discharges is noted no focal slowing is noted this is most likely is drug effect and or encephalographic process Clinical correlation is in order Description: The waking background shows an appropriate organization with well-defined anterior posterior voltage and frequency gradients. Posteriorly, there is a well-developed alpha rhythm of [3-4 ] Hz which is symmetrical and bilaterally reactive. Anteriorly, there is a pattern of lower voltage and slightly irregular theta and beta range frequencies. During drowsiness, there is attenuation of the background rhythms. The sleep background shows normal organization with well-formed sleep spindles and vertex waves which are synchronous and symmetrical. Throughout, the recording there are no epileptiform abnormalities, focal or lateralizing features, or significant interhemispheric findings.
[2019-03-20 14:56] LABS: Appearance,CSF Clear; Red Blood Cell,CSF 720 /mm3 (0-0); White Blood Cell,CSF 97 /mm3 (1-10)
[2019-03-20 14:58] LABS: Basophils CSF 0 %; Total Cells Counted 100 /mm3
--- NOTE | 2019-03-20 15:07 | Procedure Note ---
Date of procedure: 03/20/19 Pre-op diagnosis: mental status changes Post-op diagnosis: same Procedure: flouro guided lumbar puncture Anesthesia: local Surgeon: NAHOMY ORTIZ Estimated blood loss: none Pathology: list (4 csf tubes) Specimen disposition: to lab Condition: stable Disposition: floor
--- NOTE | 2019-03-20 15:16 | Fluoroscopy Report ---
LUMBAR PUNCTURE INDICATION : Altered mental status, sepsis PROCEDURE: The risks (including but not limited to bleeding, infection, and spinal headache) and luis efits were explained to the patient and informed consent was obtained. A time out procedure was perf ormed. The procedure site was prepped and draped in the usual sterile fashion and lidocaine was used for local anesthesia. Under fluoroscopic guidance, a 22-gauge spinal needle was advanced into the L3-4 interlaminar space. 4 separate collection tubes of 1-2 cc each were obtained for analysis. Samples were sent to the lab p er the ordering physician specifications for further evaluation. The patient tolerated the procedure well with no complications. IMPRESSION: Successful lumbar puncture as outlined above. Fluoroscopic time: 0.4 Number of fluoroscopic images: 2 Signer Name: Pardeep Faustin Jr, MD Signed: 03/20/2019 3:12 PM Workstation Name: [id number]
[2019-03-20] MEDS: SODIUM CHLORIDE 0.45% 1000 ML 1,000 ML IV SCH (15:23)
--- NOTE | 2019-03-20 16:16 | Progress Note ---
Assessment and Plan Cultures: 03/18/2019 urine cultures: Pending 03/18/2019 blood cultures: S aureus pending JORDY A&P - 68-year-old male with a past medical history of hypertension, diabetes, obesity admitted after being found down. #SIRS possible sepsis: Present with leukocytosis and tachycardia. Possible meningitis versus encephalitis versus reactive from seizures. #possible meningitis: Agree with empiric high-dose ceftriaxone, vancomycin. Given his age range would also start empiric ampicillin to cover listeria. Patient is pending LP and brain MRI. Would send for HSV PCR from the CSF as well as cultures. CSF: 97 WBC with neutrophilic predominance, elevated glucose. OK stop stop acyclovir #diabetes: Tight glycemic control for Calvert function #CRISTÓBAL: renally dose antibiotics as appropriate #UTI: with S aureus pending JORDY. Already on vancomycin due to above. Recommendations: -ceftriaxone 2 g every 12 hours -Vancomycin dosed per pharmacy. Goal trough 15-20 -stopped acyclovir -continue ampicillin 2g q12h -HSV PCR from the CSF -follow-up CSF cultures -follow-up JORDY of staph aureus in urine -Follow-up blood cultures as staph and urine is often spillover from blood. Thank you for the consult, will follow. John Can MD [facility], [place], [facility] ([facility] M: [phone] O: [phone] F: [phone] Subjective Date of service: 03/20/19 Principal diagnosis: seizure,leukocytosis,altered mentation Interval history: Afebrile, white count improving to now 19. lumbar puncture performed today. Objective - Exam Narrative Exam: Constitutional: Intubated, sedated Head, Ears, Nose: Normocephalic, atraumatic. External ears, nose normal Neck: Intubated, Oral: Intubated, Cardiovascular: S1, S2 normal. Respiratory: Good air entry, clear to auscultation bilaterally GI: Soft, non-tender; bowel sounds normal. No peritoneal signs. Musculoskeletal: No pedal edema, no cyanosis. Skin: No rash or abscess Hem/Lymphatic: No palpable cervical or supraclavicular nodes. No lymphangitis Psych: sedated Neurological: Intubated, sedated - Constitutional Vitals: Vital Signs Temp Pulse Resp BP Pulse Ox 98.6 F 114 H 20 109/70 99 03/20/19 12:00 03/20/19 12:57 03/20/19 12:00 03/20/19 12:57 03/20/19 12:57 Temperature -Last 24 Hours Temperature 98.6 F Temperature 98.6 F Temperature 98.9 F Temperature 98.9 F Temperature 98.5 F Temperature 98.9 F - Labs CBC & Chem 7: 03/20/19 05:26 03/20/19 05:26 Labs: Abnormal lab results 03/19/19 03/20/19 03/20/19 Range/Units 23:08 00:12 03:44 WBC (4.5-11.0) K/mm3 Hgb (11.8-15.2) gm/dl Hct (35.5-45.6) % MCV (84-94) fl MCH (28-32) pg Lymph % (Auto) (13.4-35.0) % Lymph # (1.2-5.4) K/mm3 [place] # (0.0-0.8) K/mm3 Seg Neutrophils % (40.0-70.0) % Seg Neutrophils # (1.8-7.7) K/mm3 ABG pO2 122.8 H (80.0-90.0) mm Hg ABG Base Excess -3.0 L (-2.0-3.0) mmol/L ABG Hemoglobin 8.9 L (14.0-18.0) gm/dl Chloride (98-107) mmol/L Carbon Dioxide (22-30) mmol/L BUN (9-20) mg/dL Creatinine (0.8-1.5) mg/dL Glucose (75-100) mg/dL POC Glucose 193 H (70-105) Total Creatine Kinase (55-170) units/L Troponin T 0.200 H* D (0.00-0.029) ng/mL 03/20/19 03/20/19 03/20/19 Range/Units 05:19 05:26 05:26 WBC 19.5 H (4.5-11.0) K/mm3 Hgb 10.8 L (11.8-15.2) gm/dl Hct 33.0 L (35.5-45.6) % MCV 82 L (84-94) fl MCH 27 L (28-32) pg Lymph % (Auto) 5.4 L (13.4-35.0) % Lymph # 1.1 L (1.2-5.4) K/mm3 [place] # 1.4 H (0.0-0.8) K/mm3 Seg Neutrophils % 86.8 H (40.0-70.0) % Seg Neutrophils # 16.9 H (1.8-7.7) K/mm3 ABG pO2 (80.0-90.0) mm Hg ABG Base Excess (-2.0-3.0) mmol/L ABG Hemoglobin (14.0-18.0) gm/dl Chloride 110.5 H (98-107) mmol/L Carbon Dioxide 17 L (22-30) mmol/L BUN 41 H (9-20) mg/dL Creatinine 2.6 H (0.8-1.5) mg/dL Glucose 199 H (75-100) mg/dL POC Glucose 202 H (70-105) Total Creatine Kinase 396 H (55-170) units/L Troponin T (0.00-0.029) ng/mL 03/20/19 03/20/19 Range/Units 05:26 11:33 WBC (4.5-11.0) K/mm3 Hgb (11.8-15.2) gm/dl Hct (35.5-45.6) % MCV (84-94) fl MCH (28-32) pg Lymph % (Auto) (13.4-35.0) % Lymph # (1.2-5.4) K/mm3 [place] # (0.0-0.8) K/mm3 Seg Neutrophils % (40.0-70.0) % Seg Neutrophils # (1.8-7.7) K/mm3 ABG pO2 (80.0-90.0) mm Hg ABG Base Excess (-2.0-3.0) mmol/L ABG Hemoglobin (14.0-18.0) gm/dl Chloride (98-107) mmol/L Carbon Dioxide (22-30) mmol/L BUN (9-20) mg/dL Creatinine (0.8-1.5) mg/dL Glucose (75-100) mg/dL POC Glucose 196 H (70-105) Total Creatine Kinase (55-170) units/L Troponin T 0.191 H* (0.00-0.029) ng/mL
[2019-03-21] MEDS: INSULIN LISPRO 100 UNIT/ML SUB-Q SCH ×4 (01:04→18:37)
[2019-03-21 04:13] LABS: ABG Base Excess -0.5 mmol/L (-2.0-3.0); ABG HCO3 21.8 mmol/L (20.0-26.0); ABG Methemoglobin 0.3 % (0.0-1.5); ABG Oxygen Saturation 97.8 % (95.0-99.0); ABG PCO2 29.7 mm Hg; ABG PH 7.483 pH Units (7.350-7.450); ABG PO2 97.5 mm Hg (80.0-90.0)
[2019-03-21 05:40] LABS: Calcium 8.5 mg/dL (8.4-10.2)
--- NOTE | 2019-03-21 08:22 | Progress Note ---
Assessment and Plan / Sepsis cannot r/o meningitis as presented with seizure, encephalopathy and elevated white count Admited to ICU with Sepsis protocol: IV fluid resuscitation therapy, serial CBC, CMP, lactic acid level, monitor urine output every shift, maintain mean arterial pressure greater than or equal to 60, IV pressor support as clinically indicate d. follow cx report ordered for LP - placed on rocephin and vancomycin, ID consulted plan for LP today will follow up study result / CRISTÓBAL (acute kidney injury)m: IV fluid resuscitation therapy, monitor urine output every shift, strict I's/O, daily weight, / Acidosis IV fluid resuscitation therapy, monitor urine output every shift, IV bicarbonate therapy. / Acute respiratory failure with hypoxia Patient intubated and placed on ventilatory support, daily SBT, sedation holiday, pulmonary toilet, pulmonary team consulted in ED, wean vent as tolerated, cont nebs, / HLD (hyperlipidemia) TF diet for now, statin therapy as clinically indicated. / DM type 2 - SSI as needed /Acute onset seizure, started on keppra - EEG showed + for seizure /Acute encephalopathy - likely from sepsis and seizure - treat underlying cause /DVT prophylaxis SCD to bilateral lower extremities while in bed, prophylactic heparin. The high probability of a clinically significant, sudden or life threatening deterioration of the [cardiac, pulmonary, renal, neurologic] system(s) required my full and direct attention, intervention and personal management. The aggregate critical care time was [35] minutes. This time is in addition to time spent performing reported procedures but includes the following: [x] Data Review and interpretation [x] Patient assessment and monitoring of vital signs [x] Documentation [x] Medication orders and management Subjective Date of service: 03/20/19 Principal diagnosis: seizure,leukocytosis,altered mentation Interval history: Patient seen and examined discussed with sister and other family member at bedside Patient remained intubated, on sedation afebrile, with elevated white count plan for LP today, off sedation Objective - Exam Narrative Exam: General appearance: Present: other (intubated) - EENT Eyes: no scleral icterus, no conjunctival injection ENT: clear oral mucosa Ears: bilateral: normal - Neck Neck: no rigidity, no enlarged thyroid - Respiratory Respiratory effort: other (on mechanical ventilation) Respiratory: bilateral: CTA - Breasts Breasts: normal - Cardiovascular Rhythm: regular Heart Sounds: Present: S1 & S2. Absent: gallop, rub Extremities: pulses intact, No edema, normal color - Gastrointestinal General gastrointestinal: Present: soft, non-tender, non-distended, normal bowel sounds - Integumentary Integumentary: clear, warm, dry - Musculoskeletal Musculoskeletal: other (intubated) - Neurologic Neurologic: other (unable to assess) - Psychiatric Psychiatric: other (intubated) - Constitutional Vitals: Vital Signs - 12hr 03/20/19 03/20/19 03/20/19 21:00 22:00 23:00 Temperature Pulse Rate 110 H 113 H 114 H Pulse Rate [ From Monitor] Respiratory 19 22 20 Rate Blood Pressure 102/60 136/73 129/60 O2 Sat by Pulse 100 99 94 Oximetry 03/20/19 03/20/19 03/20/19 23:06 23:44 23:55 Temperature 97.7 F Pulse Rate 119 H 122 H Pulse Rate [ From Monitor] Respiratory 26 H Rate Blood Pressure 129/60 123/54 O2 Sat by Pulse 98 98 Oximetry 03/21/19 03/21/19 03/21/19 00:00 01:00 02:00 Temperature Pulse Rate 119 H 107 H 107 H Pulse Rate [ 113 H From Monitor] Respiratory 24 18 19 Rate Blood Pressure 123/54 125/52 114/53 O2 Sat by Pulse 97 96 96 Oximetry 03/21/19 03/21/19 03/21/19 03:00 04:00 04:50 Temperature 99.0 F Pulse Rate 117 H 109 H 108 H Pulse Rate [ 109 H From Monitor] Respiratory 26 H 18 Rate Blood Pressure 189/76 176/69 124/52 O2 Sat by Pulse 97 100 97 Oximetry 03/21/19 03/21/19 03/21/19 05:00 06:00 07:00 Temperature Pulse Rate 108 H 111 H 109 H Pulse Rate [ From Monitor] Respiratory 19 20 21 Rate Blood Pressure 120/53 149/58 106/47 O2 Sat by Pulse 93 94 95 Oximetry 03/21/19 07:41 Temperature Pulse Rate 113 H Pulse Rate [ From Monitor] Respiratory Rate Blood Pressure 148/64 O2 Sat by Pulse 96 Oximetry - Labs CBC & Chem 7: 03/20/19 05:26 03/21/19 04:07 Labs: Abnormal lab results 03/20/19 03/20/19 03/20/19 Range/Units 11:33 15:23 18:28 ABG pH (7.350-7.450) pH Units ABG pO2 (80.0-90.0) mm Hg ABG Hemoglobin (14.0-18.0) gm/dl Sodium (137-145) mmol/L Potassium (3.6-5.0) mmol/L Chloride (98-107) mmol/L BUN (9-20) mg/dL Creatinine (0.8-1.5) mg/dL Glucose (75-100) mg/dL POC Glucose 196 H 190 H (70-105) Phosphorus (2.5-4.5) mg/dL Troponin T 0.214 H* (0.00-0.029) ng/mL 03/20/19 03/21/19 03/21/19 Range/Units 23:14 03:29 04:07 ABG pH 7.483 H (7.350-7.450) pH Units ABG pO2 97.5 H (80.0-90.0) mm Hg ABG Hemoglobin 8.5 L (14.0-18.0) gm/dl Sodium 146 H (137-145) mmol/L Potassium 3.1 L D (3.6-5.0) mmol/L Chloride 109.8 H (98-107) mmol/L BUN 35 H (9-20) mg/dL Creatinine 1.9 H (0.8-1.5) mg/dL Glucose 200 H (75-100) mg/dL POC Glucose 190 H (70-105) Phosphorus 1.80 L (2.5-4.5) mg/dL Troponin T (0.00-0.029) ng/mL 03/21/19 Range/Units 05:22 ABG pH (7.350-7.450) pH Units ABG pO2 (80.0-90.0) mm Hg ABG Hemoglobin (14.0-18.0) gm/dl Sodium (137-145) mmol/L Potassium (3.6-5.0) mmol/L Chloride (98-107) mmol/L BUN (9-20) mg/dL Creatinine (0.8-1.5) mg/dL Glucose (75-100) mg/dL POC Glucose 189 H (70-105) Phosphorus (2.5-4.5) mg/dL Troponin T (0.00-0.029) ng/mL
[2019-03-21] MEDS: AMPICILLIN/NS 2 GM/100 ML 2 GM/100 ML BAG IV SCH ×2 (09:49→22:32)
[2019-03-21] MEDS: levETIRAcetam 750 MG in DEXTROSE 5% IN WATER 100 ML IV SCH (09:49)
[2019-03-21] MEDS: cefTRIAXone/NS 2 GM/100 ML 2 GM/100 ML BAG IV SCH ×2 (09:49→22:32)
[2019-03-21] MEDS: FAMOTIDINE 20 MG/2 ML INJ IV SCH (09:50)
[2019-03-21] MEDS: POTASSIUM CHLORIDE ER 20 MEQ TAB PO SCH (09:50)
[2019-03-21] MEDS: HEPARIN 5,000 UNIT/1 ML VIAL SUB-Q SCH ×2 (09:50→22:29)
[2019-03-21] MEDS: PHOS-NAK POWDER PACKET PO SCH ×2 (09:50→22:30)
[2019-03-21] MEDS: SODIUM CHLORIDE 0.45% 1000 ML 1,000 ML IV SCH (10:18)
[2019-03-21] MEDS: ACETAMINOPHEN 325 MG TAB PO PRN ×2 (12:20→16:51)
--- NOTE | 2019-03-21 12:29 | Progress Note ---
Assessment and Plan 1. Acute kidney injury: Vasomotor CRISTÓBAL in the setting of sepsis. Renal US negative for hydro. Renal function is improving. Continue IV fluids. Monitor renal function. Avoid nephrotoxic agents. Meds dosage based on GFR. 2. FEN: Anion gap metabolic acidosis, 2/2 Lactic acidosis, improving. Hypernatremia, increase water flushes. Replete K and Phos. Monitor lytes. 3. Sepsis. 4. Acute respiratory failure with hypoxia: Intubated on vent. 5. Seizures: Seen by Neuro. 6. DM type 2. 7. Encephalopathy: Multifactorial. Examination: General appearance: well-developed, appears stated age, intubated, ventilator, intubated HEENT: ATNC, DALIA Neck: trachea midline Respiratory: Clear to Ascultation Heart: regular, S1S2, no murmur Gastrointestinal: soft, normoactive bowel sounds, not tenderness, not distended Integumentary: no rash, warm and dry Neurologic: obtunded : Kwok catheter Musculoskeletal: no edema Subjective Date of service: 03/21/19 Principal diagnosis: seizure,leukocytosis,altered mentation Interval history: Patient was seen and examined at the bedside. Remain in the ICU. Objective - Vital Signs Vital signs: Vital Signs - 12hr 03/21/19 03/21/19 03/21/19 01:00 02:00 03:00 Temperature Pulse Rate 107 H 107 H 117 H Pulse Rate [ From Monitor] Respiratory 18 19 26 H Rate Blood Pressure 125/52 114/53 189/76 O2 Sat by Pulse 96 96 97 Oximetry 03/21/19 03/21/19 03/21/19 04:00 04:50 05:00 Temperature 99.0 F Pulse Rate 109 H 108 H 108 H Pulse Rate [ 109 H From Monitor] Respiratory 18 19 Rate Blood Pressure 176/69 124/52 120/53 O2 Sat by Pulse 100 97 93 Oximetry 03/21/19 03/21/19 03/21/19 06:00 07:00 07:41 Temperature Pulse Rate 111 H 109 H 113 H Pulse Rate [ From Monitor] Respiratory 20 21 Rate Blood Pressure 149/58 106/47 148/64 O2 Sat by Pulse 94 95 96 Oximetry 03/21/19 03/21/19 08:00 11:40 Temperature 100.4 F H Pulse Rate 107 H 115 H Pulse Rate [ 107 H From Monitor] Respiratory 20 Rate Blood Pressure 119/47 124/54 O2 Sat by Pulse 93 98 Oximetry - Lab 03/20/19 05:26 03/21/19 04:07 Most recent lab results ABG pH 7.483 pH Units (7.350-7.450) H 03/21/19 03:29 ABG pCO2 29.7 mm Hg 03/21/19 03:29 ABG pO2 97.5 mm Hg (80.0-90.0) H 03/21/19 03:29 ABG HCO3 21.8 mmol/L (20.0-26.0) 03/21/19 03:29 ABG O2 Saturation 97.8 % (95.0-99.0) 03/21/19 03:29 Calcium 8.5 mg/dL (8.4-10.2) 03/21/19 04:07 Phosphorus 1.80 mg/dL (2.5-4.5) L 03/21/19 04:07 Magnesium 1.90 mg/dL (1.7-2.3) 03/21/19 04:07 Urine Creatinine 142.9 mg/dL (0.1-20.0) H 03/19/19 01:38 Urine Sodium 14 mmol/L 03/19/19 01:38 Medications & Allergies - Medications Allergies/Adverse Reactions: Allergies No Known Allergies Allergy (Verified 01/21/16 10:17) Home Medications: Home Medications Medication Instructions Recorded Confirmed Last Taken Type Acetaminophen [Acetaminophen TAB] 2 tab PO Q4H PRN #15 tablet 02/10/19 03/19/19 Unknown Rx Aspirin 325 mg PO QDAY #30 tablet 02/10/19 03/19/19 Unknown Rx Magnesium Hydroxide [Milk of 30 ml PO Q4H PRN #15 oral.liqd 02/10/19 03/19/19 Unknown Rx Magnesia] OLANzapine [ZyPREXA] 2.5 mg PO QDAY #30 tablet 02/10/19 03/19/19 Unknown Rx Pantoprazole [Protonix TAB] 20 mg PO QDAY #30 tablet. 02/10/19 03/19/19 Unknown Rx Active Medications: Generic Name Dose Route Start Last Admin Trade Name Freq PRN Reason Stop Dose Admin Acetaminophen 650 mg 03/21/19 10:29 03/21/19 12:20 Tylenol PO 650 mg Q4H PRN Administration Pain MILD(1-3)/Fever >100.5/ROSA Lipase/Protease/Amylase 1 each 03/19/19 15:17 Pancreeliana Huggins 10,500 Unit FEEDTUBE PRN PRN For Clogged Feeding Tube Dextrose 0 ml 03/20/19 02:38 D50w (25gm) Syringe IV Q30MIN PRN Hypoglycemia Protocol Famotidine 20 mg 03/19/19 14:00 03/21/19 09:50 Pepcid IV 20 mg DAILY MARTHA Administration Heparin Sodium (Porcine) 5,000 unit 03/18/19 22:00 03/21/19 09:50 Heparin SUB-Q 5,000 unit Q12HR MARTHA Administration Levetiracetam 750 mg/ Dextrose 107.5 mls @ 400 mls/hr 03/19/19 12:00 03/21/19 09:49 IV 400 mls/hr Q12HR MARTHA Administration Ceftriaxone Sodium 2 gm in 100 mls @ 200 mls/hr 03/19/19 14:00 03/21/19 09:49 Rocephin/Ns 2 Gm/100 Ml IV 200 mls/hr Q12HR MARTHA Administration Protocol Ampicillin Sodium 2 gm in 100 mls @ 100 mls/hr 03/19/19 22:00 03/21/19 09:49 Ampicillin/Ns 2 Gm/100 Ml IV 100 mls/hr Q12HR MARTHA Administration Protocol Sodium Chloride 1,000 mls @ 60 mls/hr 03/20/19 14:00 03/21/19 10:18 Nacl 0.45% 1000 Ml IV 60 mls/hr DIRECT MARTHA Administration Insulin Human Lispro 0 unit 03/20/19 06:00 03/21/19 12:21 Humalog SUB-Q 3 unit Q6HR MARTHA Administration Protocol Potassium Chloride 40 meq 03/21/19 10:00 03/21/19 09:50 K-Dur PO 40 meq QDAY MARTHA Administration Potassium Phos/Sodium Phos 1 each 03/21/19 10:00 03/21/19 09:50 Phos-Nak PO 1 each Q12HR MARTHA Administration Simple Syrup 15 ml 03/19/19 15:17 Simple Syrup FEEDTUBE PRN PRN Hypoglycemia Simple Syrup 30 ml 03/19/19 15:17 Simple Syrup FEEDTUBE PRN PRN Hypoglycemia Sodium Bicarbonate 325 mg 03/19/19 15:17 Sodium Bicarbonate FEEDTUBE PRN PRN For Clogged Feeding Tube Sodium Chloride 10 ml 03/18/19 22:00 03/21/19 09:51 Sodium Chloride Flush Syringe 10 Ml IV 10 ml BID MARTHA Administration Sodium Chloride 10 ml 03/18/19 17:32 Sodium Chloride Flush Syringe 10 Ml IV PRN PRN LINE FLUSH
--- NOTE | 2019-03-21 14:05 | Progress Note ---
Assessment and Plan / Sepsis cannot r/o meningitis as presented with seizure, encephalopathy and elevated white count Admited to ICU with Sepsis protocol: IV fluid resuscitation therapy, serial CBC, BMP, lactic acid level, IV abx, ordered Cx monitor urine output every shift, maintain mean arterial pressure greater than or equal to 60, IV pressor support as clinically indicated. negative cx report ordered for LP - placed on Iv coverage for viral and bacterial meningitis, ID consulted s/p LP 03/20/19 - study result not convincing for meningitis - will follow ID recommendation /Acute encephalopathy likely from Sepsis vs CRISTÓBAL Vs underlying seizure monitor clinically. MRI brain w/o any acute change cont to treat underlying cause / CRISTÓBAL (acute kidney injury): likely vasomotor nephropathy cont IV fluid resuscitation therapy, monitor urine output every shift, strict I's/O, Nephrology following / metabolic Acidosis - due to sepsis vs CRISTÓBAL IV fluid resuscitation therapy, monitor urine output every shift, s/p IV bicarbonate therapy. / Acute respiratory failure with hypoxia Patient intubated and placed on ventilatory support, daily SBT, sedation holi day, pulmonary toilet, pulmonary team consulted in ED, wean vent as tolerated, cont nebs, / HLD (hyperlipidemia) TF diet for now, statin therapy as clinically indicated. / DM type 2 - SSI as needed /Acute onset seizure, started on keppra - EEG showed + for seizure, neurology following /DVT prophylaxis SCD to bilateral lower extremities while in bed, prophylactic heparin. The high probability of a clinically significant, sudden or life threatening deterioration of the [cardiac, pulmonary, renal, neurologic] system(s) required my full and direct attention, intervention and personal management. The aggregate critical care time was [35] minutes. This time is in addition to time spent performing reported procedures but includes the following: [x] Data Review and interpretation [x] Patient assessment and monitoring of vital signs [x] Documentation [x] Medication orders and management Subjective Date of service: 03/21/19 Principal diagnosis: seizure,leukocytosis,altered mentation Interval history: Patient seen and examined discussed with sister at bedside Patient remained intubated, on sedation afebrile, white count trending down off sedation since yesterday Objective - Exam Narrative Exam: General appearance: Present: other (intubated), NAD - EENT Eyes: no scleral icterus, no conjunctival injection ENT: clear oral mucosa Ears: bilateral: normal - Neck Neck: no rigidity, no enlarged thyroid - Respiratory Respiratory effort: other (on mechanical ventilation) Respiratory: bilateral: CTA - Breasts Breasts: normal - Cardiovascular Rhythm: regular Heart Sounds: Present: S1 & S2. Absent: gallop, rub Extremities: pulses intact, No edema, normal color - Gastrointestinal General gastrointestinal: Present: soft, non-tender, non-distended, normal bowel sounds - Integumentary Integumentary: clear, warm, dry - Musculoskeletal Musculoskeletal: other (intubated) - Neurologic Neurologic: other (unable to assess), moves extremities - does not follow commend off sedation - Psychiatric Psychiatric: other (intubated) - Constitutional Vitals: Vital Signs - 12hr 03/21/19 03/21/19 03/21/19 03:00 04:00 04:50 Temperature 99.0 F Pulse Rate 117 H 109 H 108 H Pulse Rate [ 109 H From Monitor] Respiratory 26 H 18 Rate Blood Pressure 189/76 176/69 124/52 O2 Sat by Pulse 97 100 97 Oximetry 03/21/19 03/21/19 03/21/19 05:00 06:00 07:00 Temperature Pulse Rate 108 H 111 H 109 H Pulse Rate [ From Monitor] Respiratory 19 20 21 Rate Blood Pressure 120/53 149/58 106/47 O2 Sat by Pulse 93 94 95 Oximetry 03/21/19 03/21/19 03/21/19 07:41 08:00 11:40 Temperature 100.4 F H Pulse Rate 113 H 107 H 115 H Pulse Rate [ 107 H From Monitor] Respiratory 20 Rate Blood Pressure 148/64 119/47 124/54 O2 Sat by Pulse 96 93 98 Oximetry 03/21/19 12:00 Temperature 100.8 F H Pulse Rate Pulse Rate [ From Monitor] Respiratory Rate Blood Pressure O2 Sat by Pulse Oximetry - Labs CBC & Chem 7: 03/22/19 04:47 03/23/19 05:12 Labs: Abnormal lab results 03/20/19 03/20/19 03/20/19 Range/Units 15:23 18:28 23:14 ABG pH (7.350-7.450) pH Units ABG pO2 (80.0-90.0) mm Hg ABG Hemoglobin (14.0-18.0) gm/dl Sodium (137-145) mmol/L Potassium (3.6-5.0) mmol/L Chloride (98-107) mmol/L BUN (9-20) mg/dL Creatinine (0.8-1.5) mg/dL Glucose (75-100) mg/dL POC Glucose 190 H 190 H (70-105) Phosphorus (2.5-4.5) mg/dL Troponin T 0.214 H* (0.00-0.029) ng/mL 03/21/19 03/21/19 03/21/19 Range/Units 03:29 04:07 05:22 ABG pH 7.483 H (7.350-7.450) pH Units ABG pO2 97.5 H (80.0-90.0) mm Hg ABG Hemoglobin 8.5 L (14.0-18.0) gm/dl Sodium 146 H (137-145) mmol/L Potassium 3.1 L D (3.6-5.0) mmol/L Chloride 109.8 H (98-107) mmol/L BUN 35 H (9-20) mg/dL Creatinine 1.9 H (0.8-1.5) mg/dL Glucose 200 H (75-100) mg/dL POC Glucose 189 H (70-105) Phosphorus 1.80 L (2.5-4.5) mg/dL Troponin T (0.00-0.029) ng/mL 03/21/19 Range/Units 11:52 ABG pH (7.350-7.450) pH Units ABG pO2 (80.0-90.0) mm Hg ABG Hemoglobin (14.0-18.0) gm/dl Sodium (137-145) mmol/L Potassium (3.6-5.0) mmol/L Chloride (98-107) mmol/L BUN (9-20) mg/dL Creatinine (0.8-1.5) mg/dL Glucose (75-100) mg/dL POC Glucose 236 H (70-105) Phosphorus (2.5-4.5) mg/dL Troponin T (0.00-0.029) ng/mL
--- NOTE | 2019-03-21 15:14 | Progress Note ---
Assessment and Plan Severe Sepsis CRISTÓBAL Acidosis Acute respiratory failure with hypoxia HLD (hyperlipidemia) DM type 2 Acute onset seizure Acute encephalopathy (Toxic/Met) Hypophosphatemia - follow CSF studies - continue empiric broad spectrum coverage per ID recommendations (Including Listeria coverage) - phosphorus replaced - reduced set rate on MVS to 12/min - continue bronchodilators with pulmonary hygiene per RT - begin daily SAT's and SBT assessment as tolerated in am - continue to wean supplemental oxygen for target O2 sat's > 90% acutely - VAP bundle addressed - continue lung protective strategies - wean per pulmonary driven protocols otherwise - enteral nutrition at goal rate as tolerated - neurology evaluation ongoing (AED's per neuro) - accuchecks with glycemic control per SSI (While critically ill target blood glucose of 140-180 mg/dL; avoid hypoglycemia) - prn analgesia per CPOT score - Maintenance of sleep-wake cycle, avoid delirium - G.I. & VTE prophylaxis - PT/OT/ROM exercises - continue mobility protocols for pressure ulcer prophylaxis - Monitor hemodynamics closely - continue other care per attending / other ada accommodation consultant's .... re-evaluate in am & prn CONDITION: CRITICAL PROGNOSIS: GUARDED CODE STATUS: FULL CODE The high probability of a clinically significant, sudden or life-threatening deterioration of the [respiratory, cardiovascular & neurologic] system(s) required my full and direct attention, intervention and personal management. The aggregate critical care time was [35] minutes without overlap. Time includes spent on; [x] Data Review and interpretation [x] Patient assessment and monitoring of vital signs [x] Documentation [x] Medication orders and management Subjective Date of service: 03/21/19 Principal diagnosis: Severe Sepsis; CRISTÓBAL; Ac hypoxemic resp failure; DM II; Seizures; AMS Interval history: Patient is seen today for: Severe Sepsis; CRISTÓBAL; Acidosis; Acute hypoxemic respiratory failure; HLD; DM type 2; Acute onset seizure; Acute encephalopathy (Toxic/Met) Seen and examined at bedside; 24hour events reviewed; nursing and respiratory care staff consulted; no adverse overnight events reported to me; remains on MVS; BP's labile but without overt hypotension; + febrile episodes up to 101F per RN; no emesis or overt aspiration Objective Vital Signs - 12hr 03/21/19 03/21/19 03/21/19 04:00 04:50 05:00 Temperature 99.0 F Pulse Rate 109 H 108 H 108 H Pulse Rate [ 109 H From Monitor] Respiratory 18 19 Rate Blood Pressure 176/69 124/52 120/53 O2 Sat by Pulse 100 97 93 Oximetry 03/21/19 03/21/19 03/21/19 06:00 07:00 07:41 Temperature Pulse Rate 111 H 109 H 113 H Pulse Rate [ From Monitor] Respiratory 20 21 Rate Blood Pressure 149/58 106/47 148/64 O2 Sat by Pulse 94 95 96 Oximetry 03/21/19 03/21/19 03/21/19 08:00 09:00 10:00 Temperature 100.4 F H Pulse Rate 110 H 116 H 114 H Pulse Rate [ 107 H From Monitor] Respiratory 20 23 21 Rate Blood Pressure 119/47 116/47 115/50 O2 Sat by Pulse 93 95 96 Oximetry 03/21/19 03/21/19 03/21/19 11:00 11:40 12:00 Temperature 100.8 F H Pulse Rate 111 H 115 H 116 H Pulse Rate [ 116 H From Monitor] Respiratory 20 22 Rate Blood Pressure 127/54 124/54 133/61 O2 Sat by Pulse 95 98 93 Oximetry 03/21/19 03/21/19 13:00 14:00 Temperature Pulse Rate 112 H 108 H Pulse Rate [ From Monitor] Respiratory 22 21 Rate Blood Pressure 107/49 100/49 O2 Sat by Pulse 92 95 Oximetry Constitutional: no acute distress, other (elderly looking CM nornocephalic riding set rate on MVS) Eyes: non-icteric ENT: oropharynx moist, other (ETT 23 cm MARILYN) Neck: supple, no lymphadenopathy, no JVD Effort: normal Ascultation: Bilateral: diminished breath sounds, rhonchi Percussion: Bilateral: not dull Cardiovascular: regular rate and rhythm Gastrointestinal: normoactive bowel sounds, soft, non-tender, non-distended Integumentary: normal Extremities: no cyanosis, no edema, pink and warm, pulses normal Neurologic: unable to assess Psychiatric: other (unable to assess re: AMS) CBC and BMP: 03/20/19 05:26 03/21/19 04:07 ABG, PT/INR, D-dimer: ABG ABG pH 7.483 pH Units (7.350-7.450) H 03/21/19 03:29 ABG pCO2 29.7 mm Hg 03/21/19 03:29 ABG pO2 97.5 mm Hg (80.0-90.0) H 03/21/19 03:29 ABG O2 Saturation 97.8 % (95.0-99.0) 03/21/19 03:29 PT/INR, D-dimer PT 14.4 Sec. (12.2-14.9) 03/18/19 14:17 INR 1.11 (0.87-1.13) 03/18/19 14:17 Abnormal lab findings: Abnormal Labs 03/18/19 03/18/19 03/18/19 14:17 14:17 14:17 WBC 38.1 H Hgb Hct MCV 83 L MCH 27 L Plt Count 740 H Lymph % (Auto) Lymph # [place] # Seg Neutrophils % Seg Neuts % (Manual) 93.0 H Lymphocytes % (Manual) 2.5 L Seg Neutrophils # Seg Neutrophils # Man 35.4 H Lymphocytes # (Manual) 1.0 L Monocytes # (Manual) 1.5 H Thrombin Time 14.7 L ABG pH ABG pO2 ABG O2 Saturation ABG Base Excess ABG Hemoglobin Sodium Potassium Chloride 94.9 L Carbon Dioxide 20 L BUN 34 H Creatinine 2.7 H Glucose 244 H POC Glucose Lactic Acid Calcium 10.6 H Phosphorus Total Creatine Kinase Troponin T 0.297 H* Total Protein Albumin Cholesterol 264 H LDL Cholesterol Direct 182 H Ur Specific [place] Urine WBC (Auto) Urine Creatinine 03/18/19 03/18/19 03/18/19 15:33 15:33 17:55 WBC Hgb Hct MCV MCH Plt Count Lymph % (Auto) Lymph # [place] # Seg Neutrophils % Seg Neuts % (Manual) Lymphocytes % (Manual) Seg Neutrophils # Seg Neutrophils # Man Lymphocytes # (Manual) Monocytes # (Manual) Thrombin Time ABG pH ABG pO2 ABG O2 Saturation ABG Base Excess ABG Hemoglobin Sodium Potassium Chloride Carbon Dioxide BUN Creatinine Glucose POC Glucose Lactic Acid 2.70 H* 3.00 H* Calcium Phosphorus Total Creatine Kinase 2896 H Troponin T Total Protein Albumin Cholesterol LDL Cholesterol Direct Ur Specific [place] Urine WBC (Auto) Urine Creatinine 03/18/19 03/18/19 03/18/19 20:22 Unknown Unknown WBC Hgb Hct MCV MCH Plt Count Lymph % (Auto) Lymph # [place] # Seg Neutrophils % Seg Neuts % (Manual) Lymphocytes % (Manual) Seg Neutrophils # Seg Neutrophils # Man Lymphocytes # (Manual) Monocytes # (Manual) Thrombin Time ABG pH ABG pO2 183.5 H ABG O2 Saturation 99.2 H ABG Base Excess ABG Hemoglobin 12.7 L Sodium Potassium Chloride Carbon Dioxide BUN Creatinine Glucose POC Glucose Lactic Acid 3.00 H* Calcium Phosphorus Total Creatine Kinase Troponin T Total Protein Albumin Cholesterol LDL Cholesterol Direct Ur Specific [place] 1.046 H Urine WBC (Auto) 23.0 H Urine Creatinine 03/19/19 03/19/19 03/19/19 01:38 02:56 02:56 WBC 25.4 H Hgb 11.3 L Hct 34.1 L D MCV 83 L MCH 27 L Plt Count 496 H Lymph % (Auto) Lymph # [place] # Seg Neutrophils % Seg Neuts % (Manual) 90.0 H Lymphocytes % (Manual) 3.0 L Seg Neutrophils # Seg Neutrophils # Man 22.9 H Lymphocytes # (Manual) 0.8 L Monocytes # (Manual) 1.8 H Thrombin Time ABG pH ABG pO2 ABG O2 Saturation ABG Base Excess ABG Hemoglobin Sodium Potassium Chloride Carbon Dioxide 20 L BUN 34 H Creatinine 2.5 H Glucose 208 H POC Glucose Lactic Acid Calcium Phosphorus Total Creatine Kinase Troponin T Total Protein 5.9 L Albumin 2.9 L Cholesterol LDL Cholesterol Direct Ur Specific [place] Urine WBC (Auto) Urine Creatinine 142.9 H 03/19/19 03/19/19 03/19/19 05:12 14:39 23:08 WBC Hgb Hct MCV MCH Plt Count Lymph % (Auto) Lymph # [place] # Seg Neutrophils % Seg Neuts % (Manual) Lymphocytes % (Manual) Seg Neutrophils # Seg Neutrophils # Man Lymphocytes # (Manual) Monocytes # (Manual) Thrombin Time ABG pH ABG pO2 201.8 H ABG O2 Saturation 99.3 H ABG Base Excess -2.8 L ABG Hemoglobin Sodium Potassium Chloride Carbon Dioxide BUN Creatinine Glucose POC Glucose 185 H Lactic Acid Calcium Phosphorus Total Creatine Kinase Troponin T 0.200 H* D Total Protein Albumin Cholesterol LDL Cholesterol Direct Ur Specific [place] Urine WBC (Auto) Urine Creatinine 03/20/19 03/20/19 03/20/19 00:12 03:44 05:19 WBC Hgb Hct MCV MCH Plt Count Lymph % (Auto) Lymph # [place] # Seg Neutrophils % Seg Neuts % (Manual) Lymphocytes % (Manual) Seg Neutrophils # Seg Neutrophils # Man Lymphocytes # (Manual) Monocytes # (Manual) Thrombin Time ABG pH ABG pO2 122.8 H ABG O2 Saturation ABG Base Excess -3.0 L ABG Hemoglobin 8.9 L Sodium Potassium Chloride Carbon Dioxide BUN Creatinine Glucose POC Glucose 193 H 202 H Lactic Acid Calcium Phosphorus Total Creatine Kinase Troponin T Total Protein Albumin Cholesterol LDL Cholesterol Direct Ur Specific [place] Urine WBC (Auto) Urine Creatinine 03/20/19 03/20/19 03/20/19 05:26 05:26 05:26 WBC 19.5 H Hgb 10.8 L Hct 33.0 L MCV 82 L MCH 27 L Plt Count Lymph % (Auto) 5.4 L Lymph # 1.1 L [place] # 1.4 H Seg Neutrophils % 86.8 H Seg Neuts % (Manual) Lymphocytes % (Manual) Seg Neutrophils # 16.9 H Seg Neutrophils # Man Lymphocytes # (Manual) Monocytes # (Manual) Thrombin Time ABG pH ABG pO2 ABG O2 Saturation ABG Base Excess ABG Hemoglobin Sodium Potassium Chloride 110.5 H Carbon Dioxide 17 L BUN 41 H Creatinine 2.6 H Glucose 199 H POC Glucose Lactic Acid Calcium Phosphorus Total Creatine Kinase 396 H Troponin T 0.191 H* Total Protein Albumin Cholesterol LDL Cholesterol Direct Ur Specific [place] Urine WBC (Auto) Urine Creatinine 03/20/19 03/20/19 03/20/19 11:33 15:23 18:28 WBC Hgb Hct MCV MCH Plt Count Lymph % (Auto) Lymph # [place] # Seg Neutrophils % Seg Neuts % (Manual) Lymphocytes % (Manual) Seg Neutrophils # Seg Neutrophils # Man Lymphocytes # (Manual) Monocytes # (Manual) Thrombin Time ABG pH ABG pO2 ABG O2 Saturation ABG Base Excess ABG Hemoglobin Sodium Potassium Chloride Carbon Dioxide BUN Creatinine Glucose POC Glucose 196 H 190 H Lactic Acid Calcium Phosphorus Total Creatine Kinase Troponin T 0.214 H* Total Protein Albumin Cholesterol LDL Cholesterol Direct Ur Specific [place] Urine WBC (Auto) Urine Creatinine 03/20/19 03/21/19 03/21/19 23:14 03:29 04:07 WBC Hgb Hct MCV MCH Plt Count Lymph % (Auto) Lymph # [place] # Seg Neutrophils % Seg Neuts % (Manual) Lymphocytes % (Manual) Seg Neutrophils # Seg Neutrophils # Man Lymphocytes # (Manual) Monocytes # (Manual) Thrombin Time ABG pH 7.483 H ABG pO2 97.5 H ABG O2 Saturation ABG Base Excess ABG Hemoglobin 8.5 L Sodium 146 H Potassium 3.1 L D Chloride 109.8 H Carbon Dioxide BUN 35 H Creatinine 1.9 H Glucose 200 H POC Glucose 190 H Lactic Acid Calcium Phosphorus 1.80 L Total Creatine Kinase Troponin T Total Protein Albumin Cholesterol LDL Cholesterol Direct Ur Specific [place] Urine WBC (Auto) Urine Creatinine 03/21/19 03/21/19 05:22 11:52 WBC Hgb Hct MCV MCH Plt Count Lymph % (Auto) Lymph # [place] # Seg Neutrophils % Seg Neuts % (Manual) Lymphocytes % (Manual) Seg Neutrophils # Seg Neutrophils # Man Lymphocytes # (Manual) Monocytes # (Manual) Thrombin Time ABG pH ABG pO2 ABG O2 Saturation ABG Base Excess ABG Hemoglobin Sodium Potassium Chloride Carbon Dioxide BUN Creatinine Glucose POC Glucose 189 H 236 H Lactic Acid Calcium Phosphorus Total Creatine Kinase Troponin T Total Protein Albumin Cholesterol LDL Cholesterol Direct Ur Specific [place] Urine WBC (Auto) Urine Creatinine Chest x-ray: image reviewed Allied health notes reviewed: nursing
[2019-03-21] MEDS ORDERED: MINERAL OIL/PETROLATUM, WHITE OPHTH OINT 3.5 GM OU PRN (17:45)
[2019-03-21] MEDS ORDERED: LIP THERAPY VASELINE TP PRN (17:45)
[2019-03-22] MEDS: INSULIN LISPRO 100 UNIT/ML SUB-Q SCH ×6 (00:40→23:56)
[2019-03-22] MEDS: levETIRAcetam 750 MG in DEXTROSE 5% IN WATER 100 ML IV SCH ×3 (00:49→21:56)
[2019-03-22] MEDS ORDERED: hydrALAZINE 20 MG/1 ML INJ IV PRN (02:51)
--- NOTE | 2019-03-22 03:39 | XRay Report ---
CHEST 1 VIEW INDICATION / CLINICAL INFORMATION: follow up respiratory failure. COMPARISON: 03/18/2019 FINDINGS: SUPPORT DEVICES: Tip of endotracheal tube is positioned approximately 2 cm above the hector. Nasogast garrick tube tip is in the stomach. HEART / MEDIASTINUM: No significant abnormality. LUNGS / PLEURA: There are low lung volumes bilaterally. There is mild basilar atelectasis.. No pneum othorax. ADDITIONAL FINDINGS: No significant additional findings. IMPRESSION: 1. There is mild basilar atelectasis. Signer Name: Aaron Coker MD Signed: 03/22/2019 3:35 AM Workstation Name: [id number]
[2019-03-22 05:53] LABS: Hematocrit 29.9 % (35.5-45.6); Hemoglobin 10.1 gm/dl (11.8-15.2); Mean Corpuscular HGB Conc 34 % (32-34); Mean Corpuscular Volume 83 fl (84-94); Platelet Count 401 K/mm3 (140-440); Red Blood Count 3.62 M/mm3 (3.65-5.03); Red Cell Distribution Width 14.7 % (13.2-15.2)
[2019-03-22 06:18] LABS: Calcium 8.8 mg/dL (8.4-10.2)
[2019-03-22 06:22] LABS: ABG Base Excess 0.7 mmol/L (-2.0-3.0); ABG HCO3 23.9 mmol/L (20.0-26.0); ABG Methemoglobin 0.5 % (0.0-1.5); ABG PCO2 32.8 mm Hg; ABG PH 7.481 pH Units (7.350-7.450); ABG PO2 74.6 mm Hg (80.0-90.0)
[2019-03-22 07:04] LABS: Basophils % (Manual) 0 % (0.0-1.8); Eosinophils % (Manual) 0 % (0.0-4.3); Total Cells Counted 100
[2019-03-22 07:05] LABS: Platelet Estimate Consistent w Auto; RBC Morphology Normal
[2019-03-22] MEDS: POTASSIUM CHLORIDE ER 20 MEQ TAB PO SCH (09:25)
[2019-03-22] MEDS: HEPARIN 5,000 UNIT/1 ML VIAL SUB-Q SCH ×2 (09:25→21:44)
[2019-03-22] MEDS: PHOS-NAK POWDER PACKET PO SCH ×2 (09:25→21:44)
[2019-03-22] MEDS: cefTRIAXone/NS 2 GM/100 ML 2 GM/100 ML BAG IV SCH (09:26)
[2019-03-22] MEDS: AMPICILLIN/NS 2 GM/100 ML 2 GM/100 ML BAG IV SCH (09:26)
[2019-03-22] MEDS: FAMOTIDINE 20 MG/2 ML INJ IV SCH (09:28)
[2019-03-22 10:29] LABS: ABG Base Excess 0.1 mmol/L (-2.0-3.0); ABG HCO3 23.1 mmol/L (20.0-26.0); ABG Methemoglobin 0.5 % (0.0-1.5); ABG Oxygen Saturation 97.1 % (95.0-99.0); ABG PCO2 31.6 mm Hg; ABG PH 7.483 pH Units (7.350-7.450); ABG PO2 79.4 mm Hg (80.0-90.0)
--- NOTE | 2019-03-22 11:00 | Progress Note ---
Assessment and Plan Cultures: 03/18/2019 blood culture: No growth 03/18/2019 urine culture: Staph aureus - MSSA (10K-100K) CSF culture: no growth thus far A/P: 68-year-old male with a past medical history of hypertension, diabetes, obesity admitted after being found down. #Sepsis with acute encephalopathy: Present with leukocytosis and tachycardia. Possible meningitis v/s encephalitis v/s reactive from seizures. #?Meningoencephalitis: CSF with mild pleocytosis, not consistent with acute bacterial meningitis. 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 MRI brain without contrast was unremarkable for acute etiology. #CRISTÓBAL: renally dose antibiotics as appropriate, creatinine improving. #MSSA in urine: Not a common uropathogen. Blood cultures are negative, so bacteremic spillover/renal seeding less likely. Will get echocardiogram. Could also be a skin contaminant. We'll continue to treat for now. Recommendations: - Ceftriaxone dose decreased to 1 gm daily - Vancomycin, ampicillin discontinued - restarted IV Acyclovir till HSV PCR results are back - TTE ordered - consider EEG Brendon Conklin MD, FACP [facility] C: [phone] O: [phone] F: [phone] Subjective Date of service: 03/22/19 Principal diagnosis: Severe Sepsis; CRISTÓBAL; Ac hypoxemic resp failure; DM II; Seizures; AMS Interval history: Patient with fever. Otherwise remains on the vent, not waking up per discussion with RN. No other issues reported. Objective - Exam Narrative Exam: Physical Exam: Constitutional: sedated, intubated Head, Ears, Nose: Normocephalic, atraumatic. External ears, nose normal Eyes: Conjunctivae/corneas clear. No icterus. No ptosis. Neck: intubated Oral: intubated Cardiovascular: S1, S2 normal. Respiratory: Good air entry, clear to auscultation bilaterally GI: Soft, non-tender; bowel sounds normal. No peritoneal signs Musculoskeletal: No pedal edema, no cyanosis. Skin: No rash or abscess Hem/Lymphatic: No palpable cervical or supraclavicular nodes. No lymphangitis Psych: no agitation Neurological: sedated, intubated, on vent - Constitutional Vitals: Vital Signs Temp Pulse Resp BP Pulse Ox 100.2 F H 113 H 24 152/70 97 03/22/19 08:00 03/22/19 10:00 03/22/19 10:00 03/22/19 10:00 03/22/19 10:00 Temperature -Last 24 Hours Temperature 100.2 F Temperature 99.6 F Temperature 100.1 F Temperature 99.9 F Temperature 101.1 F Temperature 100.8 F - Labs CBC & Chem 7: 03/22/19 04:47 03/22/19 04:47 Labs: Abnormal lab results 03/21/19 03/21/19 03/21/19 Range/Units 11:52 18:06 23:36 RBC (3.65-5.03) M/mm3 Hgb (11.8-15.2) gm/dl Hct (35.5-45.6) % MCV (84-94) fl Seg Neuts % (Manual) (40.0-70.0) % Lymphocytes % (Manual) (13.4-35.0) % Monocytes % (Manual) (0.0-7.3) % Seg Neutrophils # Man (1.8-7.7) K/mm3 Lymphocytes # (Manual) (1.2-5.4) K/mm3 ABG pH (7.350-7.450) pH Units ABG pO2 (80.0-90.0) mm Hg ABG Hemoglobin (14.0-18.0) gm/dl Chloride (98-107) mmol/L Carbon Dioxide (22-30) mmol/L BUN (9-20) mg/dL Creatinine (0.8-1.5) mg/dL Glucose (75-100) mg/dL POC Glucose 236 H 164 H 211 H (70-105) Phosphorus (2.5-4.5) mg/dL 03/22/19 03/22/19 03/22/19 Range/Units 04:47 04:47 05:20 RBC 3.62 L (3.65-5.03) M/mm3 Hgb 10.1 L (11.8-15.2) gm/dl Hct 29.9 L (35.5-45.6) % MCV 83 L (84-94) fl Seg Neuts % (Manual) 83.0 H (40.0-70.0) % Lymphocytes % (Manual) 8.0 L (13.4-35.0) % Monocytes % (Manual) 8.0 H (0.0-7.3) % Seg Neutrophils # Man 8.8 H (1.8-7.7) K/mm3 Lymphocytes # (Manual) 0.8 L (1.2-5.4) K/mm3 ABG pH 7.481 H (7.350-7.450) pH Units ABG pO2 74.6 L (80.0-90.0) mm Hg ABG Hemoglobin 9.7 L (14.0-18.0) gm/dl Chloride 107.8 H (98-107) mmol/L Carbon Dioxide 19 L (22-30) mmol/L BUN 28 H (9-20) mg/dL Creatinine 1.6 H (0.8-1.5) mg/dL Glucose 198 H (75-100) mg/dL POC Glucose (70-105) Phosphorus 2.40 L D (2.5-4.5) mg/dL 03/22/19 03/22/19 Range/Units 05:29 10:10 RBC (3.65-5.03) M/mm3 Hgb (11.8-15.2) gm/dl Hct (35.5-45.6) % MCV (84-94) fl Seg Neuts % (Manual) (40.0-70.0) % Lymphocytes % (Manual) (13.4-35.0) % Monocytes % (Manual) (0.0-7.3) % Seg Neutrophils # Man (1.8-7.7) K/mm3 Lymphocytes # (Manual) (1.2-5.4) K/mm3 ABG pH 7.483 H (7.350-7.450) pH Units ABG pO2 79.4 L (80.0-90.0) mm Hg ABG Hemoglobin 9.2 L (14.0-18.0) gm/dl Chloride (98-107) mmol/L Carbon Dioxide (22-30) mmol/L BUN (9-20) mg/dL Creatinine (0.8-1.5) mg/dL Glucose (75-100) mg/dL POC Glucose 202 H (70-105) Phosphorus (2.5-4.5) mg/dL - Imaging and cardiology Chest x-ray: report reviewed, image reviewed (no pneumonia seen)
[2019-03-22] MEDS: cloNIDine TTS 0.2 MG/24 HR PATCH TD SCH (12:39)
[2019-03-22] MEDS: SODIUM CHLORIDE 0.9% IV SCH ×2 (12:49→19:39)
[2019-03-22] MEDS: ACYCLOVIR IV SCH ×2 (12:49→19:39)
--- NOTE | 2019-03-22 13:46 | Progress Note ---
Assessment and Plan 1. Acute kidney injury: Vasomotor CRISTÓBAL in the setting of sepsis. Renal US negative for hydro. Renal function is improving. Continue IV fluids. Monitor renal function. Avoid nephrotoxic agents. Meds dosage based on GFR. 2. FEN: Anion gap metabolic acidosis, 2/2 Lactic acidosis, monitor. Hypernatremia, continue water flushes. Replete Phos. Monitor lytes. 3. Sepsis. 4. Acute respiratory failure with hypoxia: Intubated on vent. 5. Seizures: Seen by Neuro. 6. DM type 2. 7. Encephalopathy: Multifactorial. Examination: General appearance: well-developed, appears stated age, intubated on vent HEENT: ATNC, DALIA Neck: trachea midline Respiratory: Clear to Ascultation Heart: regular, S1S2, no murmur Gastrointestinal: soft, normoactive bowel sounds, not tenderness, not distended Integumentary: no rash, warm and dry Neurologic: obtunded : Kwok catheter Musculoskeletal: no edema Subjective Date of service: 03/22/19 Principal diagnosis: Severe Sepsis; CRISTÓBAL; Ac hypoxemic resp failure; DM II; Seizures; AMS Interval history: Patient was seen and examined at the bedside. Remain in the ICU. Objective - Vital Signs Vital signs: Vital Signs - 12hr 03/22/19 03/22/19 03/22/19 02:00 03:00 03:48 Temperature 99.6 F Pulse Rate 106 H 105 H Pulse Rate [ From Monitor] Respiratory 23 22 Rate Blood Pressure 180/77 156/70 O2 Sat by Pulse 95 95 Oximetry 03/22/19 03/22/19 03/22/19 04:00 04:20 05:00 Temperature Pulse Rate 109 H 114 H 113 H Pulse Rate [ 113 H From Monitor] Respiratory 22 23 Rate Blood Pressure 160/70 181/61 181/61 O2 Sat by Pulse 95 94 92 Oximetry 03/22/19 03/22/19 03/22/19 06:00 07:00 07:42 Temperature Pulse Rate 118 H 112 H 106 H Pulse Rate [ From Monitor] Respiratory 25 H 22 Rate Blood Pressure 183/90 148/70 169/72 O2 Sat by Pulse 92 93 96 Oximetry 03/22/19 03/22/19 03/22/19 08:00 09:00 10:00 Temperature 100.2 F H Pulse Rate 109 H 107 H 113 H Pulse Rate [ 109 H 113 H From Monitor] Respiratory 20 22 24 Rate Blood Pressure 147/71 124/57 152/70 O2 Sat by Pulse 91 96 94 Oximetry 03/22/19 03/22/19 03/22/19 11:57 12:00 12:39 Temperature 100.4 F H Pulse Rate 104 H 105 H Pulse Rate [ From Monitor] Respiratory Rate Blood Pressure 152/70 130/63 O2 Sat by Pulse 97 Oximetry - Lab 03/22/19 04:47 03/22/19 04:47 Most recent lab results ABG pH 7.483 pH Units (7.350-7.450) H 03/22/19 10:10 ABG pCO2 31.6 mm Hg 03/22/19 10:10 ABG pO2 79.4 mm Hg (80.0-90.0) L 03/22/19 10:10 ABG HCO3 23.1 mmol/L (20.0-26.0) 03/22/19 10:10 ABG O2 Saturation 97.1 % (95.0-99.0) 03/22/19 10:10 Calcium 8.8 mg/dL (8.4-10.2) 03/22/19 04:47 Phosphorus 2.40 mg/dL (2.5-4.5) L D 03/22/19 04:47 Magnesium 1.90 mg/dL (1.7-2.3) 03/21/19 04:07 Urine Creatinine 142.9 mg/dL (0.1-20.0) H 03/19/19 01:38 Urine Sodium 14 mmol/L 03/19/19 01:38 Medications & Allergies - Medications Allergies/Adverse Reactions: Allergies No Known Allergies Allergy (Verified 01/21/16 10:17) Home Medications: Home Medications Medication Instructions Recorded Confirmed Last Taken Type Acetaminophen [Acetaminophen TAB] 2 tab PO Q4H PRN #15 tablet 02/10/19 03/19/19 Unknown Rx Aspirin 325 mg PO QDAY #30 tablet 02/10/19 03/19/19 Unknown Rx Magnesium Hydroxide [Milk of 30 ml PO Q4H PRN #15 oral.liqd 02/10/19 03/19/19 Unknown Rx Magnesia] OLANzapine [ZyPREXA] 2.5 mg PO QDAY #30 tablet 02/10/19 03/19/19 Unknown Rx Pantoprazole [Protonix TAB] 20 mg PO QDAY #30 tablet. 02/10/19 03/19/19 Unknown Rx Active Medications: Generic Name Dose Route Start Last Admin Trade Name Amos PRN Reason Stop Dose Admin Acetaminophen 650 mg 03/21/19 10:29 03/21/19 16:51 Tylenol PO 650 mg Q4H PRN Administration Pain MILD(1-3)/Fever >100.5/ROSA Lipase/Protease/Amylase 1 each 03/19/19 15:17 Pancreaze 10,500 Unit FEEDTUBE PRN PRN For Clogged Feeding Tube Clonidine HCl 0.2 mg 03/22/19 12:00 03/22/19 12:39 Catapres-Tts Patch TD 0.2 mg Raymond MARTHA Administration Dextrose 0 ml 03/20/19 02:38 D50w (25gm) Syringe IV Q30MIN PRN Hypoglycemia Protocol Famotidine 20 mg 03/19/19 14:00 03/22/19 09:28 Pepcid IV 20 mg DAILY MARTHA Administration Heparin Sodium (Porcine) 5,000 unit 03/18/19 22:00 03/22/19 09:25 Heparin SUB-Q 5,000 unit Q12HR MARTHA Administration Hydralazine HCl 10 mg 03/22/19 02:51 Apresoline IV Q4H PRN Hypertension Hydrophilic Ointment 1 applic 03/21/19 17:45 Vaseline Lip Therapy TP Q2HR PRN Dry Lips Levetiracetam 750 mg/ Dextrose 107.5 mls @ 400 mls/hr 03/19/19 12:00 03/22/19 10:45 IV 400 mls/hr Q12HR MARTHA Administration Sodium Chloride 1,000 mls @ 60 mls/hr 03/20/19 14:00 03/21/19 10:18 Nacl 0.45% 1000 Ml IV 60 mls/hr DIRECT MARTHA Administration Ceftriaxone Sodium 1 gm in 50 mls @ 100 mls/hr 03/23/19 10:00 Rocephin/Ns 1 Gm/50 Ml IV Q24H MARTHA Protocol Acyclovir 430 mg/ Sodium 108.6 mls @ 100 mls/hr 03/22/19 12:00 03/22/19 12:49 Chloride IV 100 mls/hr Q8H MARTHA Administration Protocol Insulin Human Lispro 0 unit 03/20/19 06:00 03/22/19 12:39 Humalog SUB-Q 3 unit Q6HR MARTHA Administration Protocol Multi-Ingred Cream/Lotion/Oil/Oint 1 applic 03/21/19 17:45 Artificial Tears Ophth Oint OU Q4HR PRN Dry Eye(s) Potassium Chloride 40 meq 03/21/19 10:00 03/22/19 09:25 K-Dur PO 40 meq QDAY MARTHA Administration Potassium Phos/Sodium Phos 1 each 03/21/19 10:00 03/22/19 09:25 Phos-Nak PO 1 each Q12HR MARTHA Administration Simple Syrup 15 ml 03/19/19 15:17 Simple Syrup FEEDTUBE PRN PRN Hypoglycemia Simple Syrup 30 ml 03/19/19 15:17 Simple Syrup FEEDTUBE PRN PRN Hypoglycemia Sodium Bicarbonate 325 mg 03/19/19 15:17 Sodium Bicarbonate FEEDTUBE PRN PRN For Clogged Feeding Tube Sodium Chloride 10 ml 03/18/19 22:00 03/22/19 09:27 Sodium Chloride Flush Syringe 10 Ml IV 10 ml BID MARTHA Administration Sodium Chloride 10 ml 03/18/19 17:32 Sodium Chloride Flush Syringe 10 Ml IV PRN PRN LINE FLUSH
--- NOTE | 2019-03-22 15:35 | Progress Note ---
Assessment and Plan Severe Sepsis CRISTÓBAL Acidosis Acute respiratory failure with hypoxia HLD (hyperlipidemia) DM type 2 Acute onset seizure Acute encephalopathy (Toxic/Met) Hypophosphatemia - follow CSF studies (PCR studies also) - continue empiric broad spectrum coverage per ID recommendations (Including Listeria coverage) - phosphorus replaced - continue set rate on MVS at 12/min - continue bronchodilators with pulmonary hygiene per RT - begin daily SAT's and SBT assessment as tolerated in am - continue to wean supplemental oxygen for target O2 sat's > 90% acutely - VAP bundle addressed - continue lung protective strategies - wean per pulmonary driven protocols otherwise - enteral nutrition at goal rate as tolerated - neurology evaluation ongoing (AED's per neuro) - accuchecks with glycemic control per SSI (While critically ill target blood glucose of 140-180 mg/dL; avoid hypoglycemia) - prn analgesia per CPOT score - Maintenance of sleep-wake cycle, avoid delirium - G.I. & VTE prophylaxis - PT/OT/ROM exercises - continue mobility protocols for pressure ulcer prophylaxis - Monitor hemodynamics closely - continue other care per attending / other center lead consultant's .... re-evaluate in am & prn CONDITION: CRITICAL PROGNOSIS: GUARDED CODE STATUS: FULL CODE The high probability of a clinically significant, sudden or life-threatening deterioration of the [respiratory, cardiovascular & neurologic] system(s) required my full and direct attention, intervention and personal management. The aggregate critical care time was [32] minutes without overlap. Time includes spent on; [x] Data Review and interpretation [x] Patient assessment and monitoring of vital signs [x] Documentation [x] Medication orders and management Subjective Date of service: 03/22/19 Principal diagnosis: Severe Sepsis; CRISTÓBAL; Ac hypoxemic resp failure; DM II; Seizures; AMS Interval history: Patient is seen today for: Severe Sepsis; CRISTÓBAL; Acidosis; Acute hypoxemic respiratory failure; HLD; DM type 2; Acute onset seizure; Acute encephalopathy (Toxic/Met) Seen and examined at bedside; 24hour events reviewed; nursing and respiratory care staff consulted; no adverse overnight events reported to me; remains on MVS; AMS is persistent; to begin SBT's today; no emesis or overt aspiration Objective Vital Signs - 12hr 03/22/19 03/22/19 03/22/19 03:48 04:00 04:20 Temperature 99.6 F Pulse Rate 109 H 114 H Pulse Rate [ 113 H From Monitor] Respiratory 22 Rate Blood Pressure 160/70 181/61 O2 Sat by Pulse 95 94 Oximetry 03/22/19 03/22/19 03/22/19 05:00 06:00 07:00 Temperature Pulse Rate 113 H 118 H 112 H Pulse Rate [ From Monitor] Respiratory 23 25 H 22 Rate Blood Pressure 181/61 183/90 148/70 O2 Sat by Pulse 92 92 93 Oximetry 03/22/19 03/22/19 03/22/19 07:42 08:00 09:00 Temperature 100.2 F H Pulse Rate 106 H 109 H 107 H Pulse Rate [ 109 H From Monitor] Respiratory 20 22 Rate Blood Pressure 169/72 147/71 124/57 O2 Sat by Pulse 96 91 96 Oximetry 03/22/19 03/22/19 03/22/19 10:00 11:57 12:00 Temperature 100.4 F H Pulse Rate 113 H 104 H Pulse Rate [ 113 H From Monitor] Respiratory 24 Rate Blood Pressure 152/70 152/70 O2 Sat by Pulse 94 97 Oximetry 03/22/19 12:39 Temperature Pulse Rate 105 H Pulse Rate [ From Monitor] Respiratory Rate Blood Pressure 130/63 O2 Sat by Pulse Oximetry Constitutional: no acute distress, other (elderly looking CM nornocephalic riding set rate on MVS) Eyes: non-icteric ENT: oropharynx moist, other (ETT 23 cm MARILYN) Neck: supple, no lymphadenopathy, no JVD Effort: normal Ascultation: Bilateral: diminished breath sounds, rhonchi Percussion: Bilateral: not dull Cardiovascular: regular rate and rhythm Gastrointestinal: normoactive bowel sounds, soft, non-tender, non-distended Integumentary: normal Extremities: no cyanosis, no edema, pink and warm, pulses normal Neurologic: unable to assess Psychiatric: other (unable to assess re: AMS) CBC and BMP: 03/26/19 04:49 03/26/19 04:49 ABG, PT/INR, D-dimer: ABG ABG pH 7.483 pH Units (7.350-7.450) H 03/22/19 10:10 ABG pCO2 31.6 mm Hg 03/22/19 10:10 ABG pO2 79.4 mm Hg (80.0-90.0) L 03/22/19 10:10 ABG O2 Saturation 97.1 % (95.0-99.0) 03/22/19 10:10 PT/INR, D-dimer PT 14.4 Sec. (12.2-14.9) 03/18/19 14:17 INR 1.11 (0.87-1.13) 03/18/19 14:17 Abnormal lab findings: Abnormal Labs 03/18/19 03/18/19 03/18/19 14:17 14:17 14:17 WBC 38.1 H RBC Hgb Hct MCV 83 L MCH 27 L Plt Count 740 H Lymph % (Auto) Lymph # [place] # Seg Neutrophils % Seg Neuts % (Manual) 93.0 H Lymphocytes % (Manual) 2.5 L Monocytes % (Manual) Seg Neutrophils # Seg Neutrophils # Man 35.4 H Lymphocytes # (Manual) 1.0 L Monocytes # (Manual) 1.5 H Thrombin Time 14.7 L ABG pH ABG pO2 ABG O2 Saturation ABG Base Excess ABG Hemoglobin Sodium Potassium Chloride 94.9 L Carbon Dioxide 20 L BUN 34 H Creatinine 2.7 H Glucose 244 H POC Glucose Lactic Acid Calcium 10.6 H Phosphorus Total Creatine Kinase Troponin T 0.297 H* Total Protein Albumin Cholesterol 264 H LDL Cholesterol Direct 182 H Ur Specific [place] Urine WBC (Auto) Urine Creatinine 03/18/19 03/18/19 03/18/19 15:33 15:33 17:55 WBC RBC Hgb Hct MCV MCH Plt Count Lymph % (Auto) Lymph # [place] # Seg Neutrophils % Seg Neuts % (Manual) Lymphocytes % (Manual) Monocytes % (Manual) Seg Neutrophils # Seg Neutrophils # Man Lymphocytes # (Manual) Monocytes # (Manual) Thrombin Time ABG pH ABG pO2 ABG O2 Saturation ABG Base Excess ABG Hemoglobin Sodium Potassium Chloride Carbon Dioxide BUN Creatinine Glucose POC Glucose Lactic Acid 2.70 H* 3.00 H* Calcium Phosphorus Total Creatine Kinase 2896 H Troponin T Total Protein Albumin Cholesterol LDL Cholesterol Direct Ur Specific [place] Urine WBC (Auto) Urine Creatinine 03/18/19 03/18/19 03/18/19 20:22 Unknown Unknown WBC RBC Hgb Hct MCV MCH Plt Count Lymph % (Auto) Lymph # [place] # Seg Neutrophils % Seg Neuts % (Manual) Lymphocytes % (Manual) Monocytes % (Manual) Seg Neutrophils # Seg Neutrophils # Man Lymphocytes # (Manual) Monocytes # (Manual) Thrombin Time ABG pH ABG pO2 183.5 H ABG O2 Saturation 99.2 H ABG Base Excess ABG Hemoglobin 12.7 L Sodium Potassium Chloride Carbon Dioxide BUN Creatinine Glucose POC Glucose Lactic Acid 3.00 H* Calcium Phosphorus Total Creatine Kinase Troponin T Total Protein Albumin Cholesterol LDL Cholesterol Direct Ur Specific [place] 1.046 H Urine WBC (Auto) 23.0 H Urine Creatinine 03/19/19 03/19/19 03/19/19 01:38 02:56 02:56 WBC 25.4 H RBC Hgb 11.3 L Hct 34.1 L D MCV 83 L MCH 27 L Plt Count 496 H Lymph % (Auto) Lymph # [place] # Seg Neutrophils % Seg Neuts % (Manual) 90.0 H Lymphocytes % (Manual) 3.0 L Monocytes % (Manual) Seg Neutrophils # Seg Neutrophils # Man 22.9 H Lymphocytes # (Manual) 0.8 L Monocytes # (Manual) 1.8 H Thrombin Time ABG pH ABG pO2 ABG O2 Saturation ABG Base Excess ABG Hemoglobin Sodium Potassium Chloride Carbon Dioxide 20 L BUN 34 H Creatinine 2.5 H Glucose 208 H POC Glucose Lactic Acid Calcium Phosphorus Total Creatine Kinase Troponin T Total Protein 5.9 L Albumin 2.9 L Cholesterol LDL Cholesterol Direct Ur Specific [place] Urine WBC (Auto) Urine Creatinine 142.9 H 03/19/19 03/19/19 03/19/19 05:12 14:39 23:08 WBC RBC Hgb Hct MCV MCH Plt Count Lymph % (Auto) Lymph # [place] # Seg Neutrophils % Seg Neuts % (Manual) Lymphocytes % (Manual) Monocytes % (Manual) Seg Neutrophils # Seg Neutrophils # Man Lymphocytes # (Manual) Monocytes # (Manual) Thrombin Time ABG pH ABG pO2 201.8 H ABG O2 Saturation 99.3 H ABG Base Excess -2.8 L ABG Hemoglobin Sodium Potassium Chloride Carbon Dioxide BUN Creatinine Glucose POC Glucose 185 H Lactic Acid Calcium Phosphorus Total Creatine Kinase Troponin T 0.200 H* D Total Protein Albumin Cholesterol LDL Cholesterol Direct Ur Specific [place] Urine WBC (Auto) Urine Creatinine 03/20/19 03/20/19 03/20/19 00:12 03:44 05:19 WBC RBC Hgb Hct MCV MCH Plt Count Lymph % (Auto) Lymph # [place] # Seg Neutrophils % Seg Neuts % (Manual) Lymphocytes % (Manual) Monocytes % (Manual) Seg Neutrophils # Seg Neutrophils # Man Lymphocytes # (Manual) Monocytes # (Manual) Thrombin Time ABG pH ABG pO2 122.8 H ABG O2 Saturation ABG Base Excess -3.0 L ABG Hemoglobin 8.9 L Sodium Potassium Chloride Carbon Dioxide BUN Creatinine Glucose POC Glucose 193 H 202 H Lactic Acid Calcium Phosphorus Total Creatine Kinase Troponin T Total Protein Albumin Cholesterol LDL Cholesterol Direct Ur Specific [place] Urine WBC (Auto) Urine Creatinine 03/20/19 03/20/19 03/20/19 05:26 05:26 05:26 WBC 19.5 H RBC Hgb 10.8 L Hct 33.0 L MCV 82 L MCH 27 L Plt Count Lymph % (Auto) 5.4 L Lymph # 1.1 L [place] # 1.4 H Seg Neutrophils % 86.8 H Seg Neuts % (Manual) Lymphocytes % (Manual) Monocytes % (Manual) Seg Neutrophils # 16.9 H Seg Neutrophils # Man Lymphocytes # (Manual) Monocytes # (Manual) Thrombin Time ABG pH ABG pO2 ABG O2 Saturation ABG Base Excess ABG Hemoglobin Sodium Potassium Chloride 110.5 H Carbon Dioxide 17 L BUN 41 H Creatinine 2.6 H Glucose 199 H POC Glucose Lactic Acid Calcium Phosphorus Total Creatine Kinase 396 H Troponin T 0.191 H* Total Protein Albumin Cholesterol LDL Cholesterol Direct Ur Specific [place] Urine WBC (Auto) Urine Creatinine 03/20/19 03/20/19 03/20/19 11:33 15:23 18:28 WBC RBC Hgb Hct MCV MCH Plt Count Lymph % (Auto) Lymph # [place] # Seg Neutrophils % Seg Neuts % (Manual) Lymphocytes % (Manual) Monocytes % (Manual) Seg Neutrophils # Seg Neutrophils # Man Lymphocytes # (Manual) Monocytes # (Manual) Thrombin Time ABG pH ABG pO2 ABG O2 Saturation ABG Base Excess ABG Hemoglobin Sodium Potassium Chloride Carbon Dioxide BUN Creatinine Glucose POC Glucose 196 H 190 H Lactic Acid Calcium Phosphorus Total Creatine Kinase Troponin T 0.214 H* Total Protein Albumin Cholesterol LDL Cholesterol Direct Ur Specific [place] Urine WBC (Auto) Urine Creatinine 03/20/19 03/21/19 03/21/19 23:14 03:29 04:07 WBC RBC Hgb Hct MCV MCH Plt Count Lymph % (Auto) Lymph # [place] # Seg Neutrophils % Seg Neuts % (Manual) Lymphocytes % (Manual) Monocytes % (Manual) Seg Neutrophils # Seg Neutrophils # Man Lymphocytes # (Manual) Monocytes # (Manual) Thrombin Time ABG pH 7.483 H ABG pO2 97.5 H ABG O2 Saturation ABG Base Excess ABG Hemoglobin 8.5 L Sodium 146 H Potassium 3.1 L D Chloride 109.8 H Carbon Dioxide BUN 35 H Creatinine 1.9 H Glucose 200 H POC Glucose 190 H Lactic Acid Calcium Phosphorus 1.80 L Total Creatine Kinase Troponin T Total Protein Albumin Cholesterol LDL Cholesterol Direct Ur Specific [place] Urine WBC (Auto) Urine Creatinine 03/21/19 03/21/19 03/21/19 05:22 11:52 18:06 WBC RBC Hgb Hct MCV MCH Plt Count Lymph % (Auto) Lymph # [place] # Seg Neutrophils % Seg Neuts % (Manual) Lymphocytes % (Manual) Monocytes % (Manual) Seg Neutrophils # Seg Neutrophils # Man Lymphocytes # (Manual) Monocytes # (Manual) Thrombin Time ABG pH ABG pO2 ABG O2 Saturation ABG Base Excess ABG Hemoglobin Sodium Potassium Chloride Carbon Dioxide BUN Creatinine Glucose POC Glucose 189 H 236 H 164 H Lactic Acid Calcium Phosphorus Total Creatine Kinase Troponin T Total Protein Albumin Cholesterol LDL Cholesterol Direct Ur Specific [place] Urine WBC (Auto) Urine Creatinine 03/21/19 03/22/19 03/22/19 23:36 04:47 04:47 WBC RBC 3.62 L Hgb 10.1 L Hct 29.9 L MCV 83 L MCH Plt Count Lymph % (Auto) Lymph # [place] # Seg Neutrophils % Seg Neuts % (Manual) 83.0 H Lymphocytes % (Manual) 8.0 L Monocytes % (Manual) 8.0 H Seg Neutrophils # Seg Neutrophils # Man 8.8 H Lymphocytes # (Manual) 0.8 L Monocytes # (Manual) Thrombin Time ABG pH ABG pO2 ABG O2 Saturation ABG Base Excess ABG Hemoglobin Sodium Potassium Chloride 107.8 H Carbon Dioxide 19 L BUN 28 H Creatinine 1.6 H Glucose 198 H POC Glucose 211 H Lactic Acid Calcium Phosphorus 2.40 L D Total Creatine Kinase Troponin T Total Protein Albumin Cholesterol LDL Cholesterol Direct Ur Specific [place] Urine WBC (Auto) Urine Creatinine 03/22/19 03/22/19 03/22/19 05:20 05:29 10:10 WBC RBC Hgb Hct MCV MCH Plt Count Lymph % (Auto) Lymph # [place] # Seg Neutrophils % Seg Neuts % (Manual) Lymphocytes % (Manual) Monocytes % (Manual) Seg Neutrophils # Seg Neutrophils # Man Lymphocytes # (Manual) Monocytes # (Manual) Thrombin Time ABG pH 7.481 H 7.483 H ABG pO2 74.6 L 79.4 L ABG O2 Saturation ABG Base Excess ABG Hemoglobin 9.7 L 9.2 L Sodium Potassium Chloride Carbon Dioxide BUN Creatinine Glucose POC Glucose 202 H Lactic Acid Calcium Phosphorus Total Creatine Kinase Troponin T Total Protein Albumin Cholesterol LDL Cholesterol Direct Ur Specific [place] Urine WBC (Auto) Urine Creatinine 03/22/19 12:29 WBC RBC Hgb Hct MCV MCH Plt Count Lymph % (Auto) Lymph # [place] # Seg Neutrophils % Seg Neuts % (Manual) Lymphocytes % (Manual) Monocytes % (Manual) Seg Neutrophils # Seg Neutrophils # Man Lymphocytes # (Manual) Monocytes # (Manual) Thrombin Time ABG pH ABG pO2 ABG O2 Saturation ABG Base Excess ABG Hemoglobin Sodium Potassium Chloride Carbon Dioxide BUN Creatinine Glucose POC Glucose 234 H Lactic Acid Calcium Phosphorus Total Creatine Kinase Troponin T Total Protein Albumin Cholesterol LDL Cholesterol Direct Ur Specific [place] Urine WBC (Auto) Urine Creatinine Chest x-ray: image reviewed Allied health notes reviewed: nursing
[2019-03-22] MEDS: ACETAMINOPHEN 325 MG TAB PO PRN (16:28)
--- NOTE | 2019-03-22 17:11 | Progress Note ---
Assessment and Plan / Sepsis with possible meningitis cannot r/o meningitis as presented with seizure, encephalopathy and elevated white count Admited to ICU with Sepsis protocol: IV fluid resuscitation therapy, serial CBC, BMP, lactic acid level, IV abx, ordered Cx monitor urine output every shift, maintain mean arterial pressure greater than or equal to 60, IV pressor support as clinically indicated. negative blood cx report, URINE for MSSA - could be a skin contaminant ordered for LP - placed on Iv coverage for viral and bacterial meningitis, ID consulted s/p LP 03/20/19 - study result not convincing for bacterial meningitis - but viral meningoencephalitis still in differential as CSF has high RBC, cont acyclovir for now /Acute encephalopathy likely from Sepsis vs CRISTÓBAL Vs underlying seizure monitor clinically. MRI brain w/o any acute change cont to treat underlying cause / CRISTÓBAL (acute kidney injury): likely vasomotor nephropathy cont IV fluid resuscitation therapy, monitor urine output every shift, strict I's/O, Nephrology following / metabolic Acidosis - due to sepsis vs CRISTÓBAL IV fluid resuscitation therapy, monitor urine output every shift, s/p IV bicarbonate therapy. / Acute respiratory failure with hypoxia Patient intubated and placed on ventilatory support, daily SBT, sedation holiday, pulmonary toilet, pulmonary team consulted in ED, wean vent as tolerated, cont nebs, / HLD (hyperlipidemia) TF diet for now, statin therapy as clinically indicated. / DM type 2 - SSI as needed /Acute onset seizure, started on keppra - EEG showed + for seizure, neurology following /DVT prophylaxis SCD to bilateral lower extremities while in bed, prophylactic heparin. The high probability of a clinically significant, sudden or life threatening deterioration of the [cardiac, pulmonary, renal, neurologic] system(s) required my full and direct attention, intervention and personal management. The aggregate critical care time was [35] minutes. This time is in addition to time spent performing reported procedures but includes the following: [x] Data Review and interpretation [x] Patient assessment and monitoring of vital signs [x] Documentation [x] Medication orders and management Subjective Date of service: 03/22/19 Principal diagnosis: Severe Sepsis; CRISTÓBAL; Ac hypoxemic resp failure; DM II; Seizures; AMS Interval history: Patient seen and examined Patient remained intubated, off sedation afebrile, white count trended down off sedation since 03/20 - patient remained unresponsive Objective - Exam Narrative Exam: General appearance: Present: other (intubated), NAD - EENT Eyes: no scleral icterus, no conjunctival injection ENT: clear oral mucosa Ears: bilateral: normal - Neck Neck: no rigidity, no enlarged thyroid - Respiratory Respiratory effort: other (on mechanical ventilation) Respiratory: bilateral: CTA - Breasts Breasts: normal - Cardiovascular Rhythm: regular Heart Sounds: Present: S1 & S2. Absent: gallop, rub Extremities: pulses intact, No edema, normal color - Gastrointestinal General gastrointestinal: Present: soft, non-tender, non-distended, normal bowel sounds - Integumentary Integumentary: clear, warm, dry - Musculoskeletal Musculoskeletal: other (intubated) - Neurologic Neurologic: other (unable to assess), moves extremities - does not follow commend off sedation - Psychiatric Psychiatric: other (intubated) - Constitutional Vitals: Vital Signs - 12hr 03/22/19 03/22/19 03/22/19 06:00 07:00 07:42 Temperature Pulse Rate 118 H 112 H 106 H Pulse Rate [ From Monitor] Respiratory 25 H 22 Rate Blood Pressure 183/90 148/70 169/72 O2 Sat by Pulse 92 93 96 Oximetry 03/22/19 03/22/19 03/22/19 08:00 09:00 10:00 Temperature 100.2 F H Pulse Rate 109 H 107 H 113 H Pulse Rate [ 109 H 113 H From Monitor] Respiratory 20 22 24 Rate Blood Pressure 147/71 124/57 152/70 O2 Sat by Pulse 91 96 94 Oximetry 03/22/19 03/22/19 03/22/19 11:00 11:57 12:00 Temperature 100.4 F H Pulse Rate 107 H 104 H 106 H Pulse Rate [ From Monitor] Respiratory 18 19 Rate Blood Pressure 167/74 152/70 134/67 O2 Sat by Pulse 97 97 94 Oximetry 03/22/19 03/22/19 03/22/19 12:39 13:00 14:00 Temperature Pulse Rate 105 H 109 H 115 H Pulse Rate [ 94 H From Monitor] Respiratory 23 26 H Rate Blood Pressure 130/63 151/71 129/71 O2 Sat by Pulse 95 97 Oximetry 03/22/19 03/22/19 03/22/19 15:00 16:00 16:48 Temperature 100.7 F H Pulse Rate 111 H 110 H 106 H Pulse Rate [ From Monitor] Respiratory 22 21 Rate Blood Pressure 152/71 152/66 122/64 O2 Sat by Pulse 91 95 96 Oximetry - Labs CBC & Chem 7: 03/22/19 04:47 03/23/19 05:12 Labs: Abnormal lab results 03/21/19 03/21/19 03/22/19 Range/Units 18:06 23:36 04:47 RBC 3.62 L (3.65-5.03) M/mm3 Hgb 10.1 L (11.8-15.2) gm/dl Hct 29.9 L (35.5-45.6) % MCV 83 L (84-94) fl Seg Neuts % (Manual) 83.0 H (40.0-70.0) % Lymphocytes % (Manual) 8.0 L (13.4-35.0) % Monocytes % (Manual) 8.0 H (0.0-7.3) % Seg Neutrophils # Man 8.8 H (1.8-7.7) K/mm3 Lymphocytes # (Manual) 0.8 L (1.2-5.4) K/mm3 ABG pH (7.350-7.450) pH Units ABG pO2 (80.0-90.0) mm Hg ABG Hemoglobin (14.0-18.0) gm/dl Chloride (98-107) mmol/L Carbon Dioxide (22-30) mmol/L BUN (9-20) mg/dL Creatinine (0.8-1.5) mg/dL Glucose (75-100) mg/dL POC Glucose 164 H 211 H (70-105) Phosphorus (2.5-4.5) mg/dL 03/22/19 03/22/19 03/22/19 Range/Units 04:47 05:20 05:29 RBC (3.65-5.03) M/mm3 Hgb (11.8-15.2) gm/dl Hct (35.5-45.6) % MCV (84-94) fl Seg Neuts % (Manual) (40.0-70.0) % Lymphocytes % (Manual) (13.4-35.0) % Monocytes % (Manual) (0.0-7.3) % Seg Neutrophils # Man (1.8-7.7) K/mm3 Lymphocytes # (Manual) (1.2-5.4) K/mm3 ABG pH 7.481 H (7.350-7.450) pH Units ABG pO2 74.6 L (80.0-90.0) mm Hg ABG Hemoglobin 9.7 L (14.0-18.0) gm/dl Chloride 107.8 H (98-107) mmol/L Carbon Dioxide 19 L (22-30) mmol/L BUN 28 H (9-20) mg/dL Creatinine 1.6 H (0.8-1.5) mg/dL Glucose 198 H (75-100) mg/dL POC Glucose 202 H (70-105) Phosphorus 2.40 L D (2.5-4.5) mg/dL 03/22/19 03/22/19 Range/Units 10:10 12:29 RBC (3.65-5.03) M/mm3 Hgb (11.8-15.2) gm/dl Hct (35.5-45.6) % MCV (84-94) fl Seg Neuts % (Manual) (40.0-70.0) % Lymphocytes % (Manual) (13.4-35.0) % Monocytes % (Manual) (0.0-7.3) % Seg Neutrophils # Man (1.8-7.7) K/mm3 Lymphocytes # (Manual) (1.2-5.4) K/mm3 ABG pH 7.483 H (7.350-7.450) pH Units ABG pO2 79.4 L (80.0-90.0) mm Hg ABG Hemoglobin 9.2 L (14.0-18.0) gm/dl Chloride (98-107) mmol/L Carbon Dioxide (22-30) mmol/L BUN (9-20) mg/dL Creatinine (0.8-1.5) mg/dL Glucose (75-100) mg/dL POC Glucose 234 H (70-105) Phosphorus (2.5-4.5) mg/dL
--- NOTE | 2019-03-23 02:41 | XRay Report ---
CHEST 1 VIEW INDICATION / CLINICAL INFORMATION: follow up respiratory failure. COMPARISON: 03/22/2019 FINDINGS: SUPPORT DEVICES: Endotracheal tube and nasogastric tube appear unchanged HEART / MEDIASTINUM: Unchanged LUNGS / PLEURA: Mild basilar atelectasis.. No pneumothorax. ADDITIONAL FINDINGS: No significant additional findings. IMPRESSION: 1. No significant change. Signer Name: Aaron Coker MD Signed: 03/23/2019 2:36 AM Workstation Name: [id number]
[2019-03-23 04:12] LABS: ABG Base Excess 1.5 mmol/L (-2.0-3.0); ABG HCO3 24.7 mmol/L (20.0-26.0); ABG Methemoglobin 0.5 % (0.0-1.5); ABG PCO2 33.4 mm Hg; ABG PH 7.486 pH Units (7.350-7.450); ABG PO2 75.2 mm Hg (80.0-90.0)
[2019-03-23] MEDS: SODIUM CHLORIDE 0.9% IV SCH ×3 (04:32→19:50)
[2019-03-23] MEDS: ACYCLOVIR IV SCH ×3 (04:32→19:50)
[2019-03-23] MEDS: INSULIN LISPRO 100 UNIT/ML SUB-Q SCH ×3 (05:29→18:28)
[2019-03-23 06:16] LABS: Calcium 8.7 mg/dL (8.4-10.2)
--- NOTE | 2019-03-23 09:14 | Progress Note ---
Assessment and Plan 1. Acute kidney injury: Vasomotor CRISTÓBAL in the setting of sepsis. Renal US negative for hydro. Renal function is better. Continue IV fluids. Monitor renal function. Avoid nephrotoxic agents. Meds dosage based on GFR. 2. FEN: Anion gap metabolic acidosis, 2/2 Lactic acidosis, monitor. Hypernatremia, continue water flushes. Monitor lytes. 3. Sepsis. 4. Acute respiratory failure with hypoxia: Intubated on vent. 5. Seizures: Seen by Neuro. 6. DM type 2. 7. Encephalopathy: Multifactorial. Examination: General appearance: well-developed, appears stated age, intubated on vent HEENT: ATNC, DALIA Neck: trachea midline Respiratory: Clear to Ascultation Heart: regular, S1S2, no murmur Gastrointestinal: soft, normoactive bowel sounds, not tenderness, not distended Integumentary: no rash, warm and dry Neurologic: obtunded Musculoskeletal: no edema Subjective Date of service: 03/23/19 Principal diagnosis: Severe Sepsis; CRISTÓBAL; Ac hypoxemic resp failure; DM II; Seizures; AMS Interval history: Patient was seen and examined at the bedside. Remain in the ICU. Objective - Vital Signs Vital signs: Vital Signs - 12hr 03/22/19 03/22/19 03/22/19 22:00 23:00 23:36 Temperature 98.7 F Pulse Rate 106 H 107 H Pulse Rate [ From Monitor] Respiratory 21 22 Rate Blood Pressure 145/66 146/67 O2 Sat by Pulse 98 98 Oximetry 03/23/19 03/23/19 03/23/19 00:00 00:14 01:00 Temperature Pulse Rate 107 H 107 H 105 H Pulse Rate [ 107 H From Monitor] Respiratory 23 25 H Rate Blood Pressure 164/74 164/74 170/77 O2 Sat by Pulse 95 97 99 Oximetry 03/23/19 03/23/19 03/23/19 02:00 03:00 03:50 Temperature Pulse Rate 107 H 115 H 108 H Pulse Rate [ From Monitor] Respiratory 25 H 31 H Rate Blood Pressure 152/82 149/86 144/61 O2 Sat by Pulse 95 96 Oximetry 03/23/19 03/23/19 03/23/19 04:00 04:03 05:00 Temperature 99.0 F Pulse Rate 101 H 103 H Pulse Rate [ 96 H From Monitor] Respiratory 20 18 Rate Blood Pressure 138/60 159/73 O2 Sat by Pulse 94 97 Oximetry 03/23/19 03/23/19 03/23/19 06:00 07:00 08:00 Temperature Pulse Rate 107 H 101 H 106 H Pulse Rate [ From Monitor] Respiratory 22 19 Rate Blood Pressure 142/72 131/59 134/67 O2 Sat by Pulse 94 96 95 Oximetry - Lab 03/22/19 04:47 03/23/19 05:12 Most recent lab results ABG pH 7.486 pH Units (7.350-7.450) H 03/23/19 03:50 ABG pCO2 33.4 mm Hg 03/23/19 03:50 ABG pO2 75.2 mm Hg (80.0-90.0) L 03/23/19 03:50 ABG HCO3 24.7 mmol/L (20.0-26.0) 03/23/19 03:50 ABG O2 Saturation 97.0 % (95.0-99.0) 03/23/19 03:50 Calcium 8.7 mg/dL (8.4-10.2) 03/23/19 05:12 Phosphorus 3.00 mg/dL (2.5-4.5) D 03/23/19 05:12 Magnesium 1.90 mg/dL (1.7-2.3) 03/21/19 04:07 Urine Creatinine 142.9 mg/dL (0.1-20.0) H 03/19/19 01:38 Urine Sodium 14 mmol/L 03/19/19 01:38 Medications & Allergies - Medications Allergies/Adverse Reactions: Allergies No Known Allergies Allergy (Verified 01/21/16 10:17) Home Medications: Home Medications Medication Instructions Recorded Confirmed Last Taken Type Acetaminophen [Acetaminophen TAB] 2 tab PO Q4H PRN #15 tablet 02/10/19 03/19/19 Unknown Rx Aspirin 325 mg PO QDAY #30 tablet 02/10/19 03/19/19 Unknown Rx Magnesium Hydroxide [Milk of 30 ml PO Q4H PRN #15 oral.liqd 02/10/19 03/19/19 Unknown Rx Magnesia] OLANzapine [ZyPREXA] 2.5 mg PO QDAY #30 tablet 02/10/19 03/19/19 Unknown Rx Pantoprazole [Protonix TAB] 20 mg PO QDAY #30 tablet. 02/10/19 03/19/19 Unknown Rx Active Medications: Generic Name Dose Route Start Last Admin Trade Name Freq PRN Reason Stop Dose Admin Acetaminophen 650 mg 03/21/19 10:29 03/22/19 16:28 Tylenol PO 650 mg Q4H PRN Administration Pain MILD(1-3)/Fever >100.5/ROSA Lipase/Protease/Amylase 1 each 03/19/19 15:17 Pancreaze 10,500 Unit FEEDTUBE PRN PRN For Clogged Feeding Tube Clonidine HCl 0.2 mg 03/22/19 12:00 03/22/19 12:39 Catapres-Tts Patch TD 0.2 mg Raymond MARTHA Administration Dextrose 0 ml 03/20/19 02:38 D50w (25gm) Syringe IV Q30MIN PRN Hypoglycemia Protocol Famotidine 20 mg 03/23/19 10:00 Pepcid PO BID MARTHA Heparin Sodium (Porcine) 5,000 unit 03/18/19 22:00 03/22/19 21:44 Heparin SUB-Q 5,000 unit Q12HR MARTHA Administration Hydralazine HCl 10 mg 03/22/19 02:51 Apresoline IV Q4H PRN Hypertension Hydrophilic Ointment 1 applic 03/21/19 17:45 Vaseline Lip Therapy TP Q2HR PRN Dry Lips Levetiracetam 750 mg/ Dextrose 107.5 mls @ 400 mls/hr 03/19/19 12:00 03/22/19 21:56 IV 03/23/19 23:59 400 mls/hr Q12HR MARTHA Administration Sodium Chloride 1,000 mls @ 60 mls/hr 03/20/19 14:00 03/21/19 10:18 Nacl 0.45% 1000 Ml IV 60 mls/hr DIRECT MARTHA Administration Ceftriaxone Sodium 1 gm in 50 mls @ 100 mls/hr 03/23/19 10:00 Rocephin/Ns 1 Gm/50 Ml IV Q24H MARTHA Protocol Acyclovir 430 mg/ Sodium 108.6 mls @ 100 mls/hr 03/22/19 12:00 03/23/19 04:32 Chloride IV 100 mls/hr Q8H MARTHA Administration Protocol Insulin Human Lispro 0 unit 03/20/19 06:00 03/23/19 05:29 Humalog SUB-Q 2 unit Q6HR MARTHA Administration Protocol Levetiracetam 750 mg 03/24/19 10:00 Keppra PO BID MARTHA Multi-Ingred Cream/Lotion/Oil/Oint 1 applic 03/21/19 17:45 Artificial Tears Ophth Oint OU Q4HR PRN Dry Eye(s) Potassium Chloride 40 meq 03/21/19 10:00 03/22/19 09:25 K-Dur PO 40 meq QDAY MARTHA Administration Potassium Phos/Sodium Phos 1 each 03/21/19 10:00 03/22/19 21:44 Phos-Nak PO 1 each Q12HR MARTHA Administration Simple Syrup 15 ml 03/19/19 15:17 Simple Syrup FEEDTUBE PRN PRN Hypoglycemia Simple Syrup 30 ml 03/19/19 15:17 Simple Syrup FEEDTUBE PRN PRN Hypoglycemia Sodium Bicarbonate 325 mg 03/19/19 15:17 Sodium Bicarbonate FEEDTUBE PRN PRN For Clogged Feeding Tube Sodium Chloride 10 ml 03/18/19 22:00 03/22/19 21:45 Sodium Chloride Flush Syringe 10 Ml IV 10 ml BID MARTHA Administration Sodium Chloride 10 ml 03/18/19 17:32 Sodium Chloride Flush Syringe 10 Ml IV PRN PRN LINE FLUSH
[2019-03-23] MEDS: cefTRIAXone/NS 1 GM/50 ML 1 GM/50 ML BAG IV SCH (09:46)
[2019-03-23] MEDS: PHOS-NAK POWDER PACKET PO SCH (09:47)
[2019-03-23] MEDS: FAMOTIDINE 20 MG TAB PO SCH ×2 (09:47→22:01)
[2019-03-23] MEDS: levETIRAcetam 750 MG in DEXTROSE 5% IN WATER 100 ML IV SCH (09:47)
[2019-03-23] MEDS: SODIUM CHLORIDE 0.45% 1000 ML 1,000 ML IV SCH (09:50)
--- NOTE | 2019-03-23 10:00 | Progress Note ---
Assessment and Plan Severe Sepsis CRISTÓBAL Acidosis Acute respiratory failure with hypoxia HLD (hyperlipidemia) DM type 2 Acute onset seizure Acute encephalopathy (Toxic/Met) Hypophosphatemia - follow CSF studies - continue empiric broad spectrum coverage per ID recommendations (Including Listeria coverage) - phosphorus replaced - reduced set rate on MVS to 12/min - continue bronchodilators with pulmonary hygiene per RT - begin daily SAT's and SBT assessment as tolerated in am - continue to wean supplemental oxygen for target O2 sat's > 90% acutely - VAP bundle addressed - continue lung protective strategies - wean per pulmonary driven protocols otherwise - enteral nutrition at goal rate as tolerated - neurology evaluation ongoing (AED's per neuro) - accuchecks with glycemic control per SSI (While critically ill target blood g lucose of 140-180 mg/dL; avoid hypoglycemia) - prn analgesia per CPOT score - Maintenance of sleep-wake cycle, avoid delirium - G.I. & VTE prophylaxis - PT/OT/ROM exercises - continue mobility protocols for pressure ulcer prophylaxis - Monitor hemodynamics closely - continue other care per attending / other web[employer] commerce consultant's .... re-evaluate in am & prn CONDITION: CRITICAL PROGNOSIS: GUARDED CODE STATUS: FULL CODE The high probability of a clinically significant, sudden or life-threatening deterioration of the [respiratory, cardiovascular & neurologic] system(s) required my full and direct attention, intervention and personal management. The aggregate critical care time was [35] minutes without overlap. Time includes spent on; [x] Data Review and interpretation [x] Patient assessment and monitoring of vital signs [x] Documentation [x] Medication orders and management Subjective Date of service: 03/23/19 Principal diagnosis: Severe Sepsis; CRISTÓBAL; Ac hypoxemic resp failure; DM II; Seizures; AMS Interval history: Patient is seen today for: Seen and examined at bedside; 24hour events reviewed; nursing and respiratory care staff consulted; no adverse overnight events reported to me; Objective Vital Signs - 12hr 03/22/19 03/22/19 03/23/19 23:00 23:36 00:00 Temperature 98.7 F Pulse Rate 107 H 107 H Pulse Rate [ 107 H From Monitor] Respiratory 22 23 Rate Blood Pressure 146/67 164/74 O2 Sat by Pulse 98 95 Oximetry 03/23/19 03/23/19 03/23/19 00:14 01:00 02:00 Temperature Pulse Rate 107 H 105 H 107 H Pulse Rate [ From Monitor] Respiratory 25 H 25 H Rate Blood Pressure 164/74 170/77 152/82 O2 Sat by Pulse 97 99 95 Oximetry 03/23/19 03/23/19 03/23/19 03:00 03:50 04:00 Temperature Pulse Rate 115 H 108 H 101 H Pulse Rate [ 96 H From Monitor] Respiratory 31 H 20 Rate Blood Pressure 149/86 144/61 138/60 O2 Sat by Pulse 96 94 Oximetry 03/23/19 03/23/19 03/23/19 04:03 05:00 06:00 Temperature 99.0 F Pulse Rate 103 H 107 H Pulse Rate [ From Monitor] Respiratory 18 22 Rate Blood Pressure 159/73 142/72 O2 Sat by Pulse 97 94 Oximetry 03/23/19 03/23/19 03/23/19 07:00 08:00 08:20 Temperature Pulse Rate 101 H 108 H 105 H Pulse Rate [ From Monitor] Respiratory 19 21 18 Rate Blood Pressure 131/59 134/67 123/54 O2 Sat by Pulse 96 97 96 Oximetry 03/23/19 09:00 Temperature Pulse Rate 102 H Pulse Rate [ From Monitor] Respiratory 19 Rate Blood Pressure 123/54 O2 Sat by Pulse 93 Oximetry Constitutional: no acute distress, other (elderly looking CM nornocephalic riding set rate on MVS) Eyes: non-icteric ENT: oropharynx moist, other (ETT 23 cm MARILYN) Neck: supple, no lymphadenopathy, no JVD Effort: normal Ascultation: Bilateral: diminished breath sounds, rhonchi Percussion: Bilateral: not dull Cardiovascular: regular rate and rhythm Gastrointestinal: normoactive bowel sounds, soft, non-tender, non-distended Integumentary: normal Extremities: no cyanosis, no edema, pink and warm, pulses normal Neurologic: unable to assess Psychiatric: other (unable to assess re: AMS) CBC and BMP: 03/22/19 04:47 03/23/19 05:12 ABG, PT/INR, D-dimer: ABG ABG pH 7.486 pH Units (7.350-7.450) H 03/23/19 03:50 ABG pCO2 33.4 mm Hg 03/23/19 03:50 ABG pO2 75.2 mm Hg (80.0-90.0) L 03/23/19 03:50 ABG O2 Saturation 97.0 % (95.0-99.0) 03/23/19 03:50 PT/INR, D-dimer PT 14.4 Sec. (12.2-14.9) 03/18/19 14:17 INR 1.11 (0.87-1.13) 03/18/19 14:17 Abnormal lab findings: Abnormal Labs 03/18/19 03/18/19 03/18/19 14:17 14:17 14:17 WBC 38.1 H RBC Hgb Hct MCV 83 L MCH 27 L Plt Count 740 H Lymph % (Auto) Lymph # [place] # Seg Neutrophils % Seg Neuts % (Manual) 93.0 H Lymphocytes % (Manual) 2.5 L Monocytes % (Manual) Seg Neutrophils # Seg Neutrophils # Man 35.4 H Lymphocytes # (Manual) 1.0 L Monocytes # (Manual) 1.5 H Thrombin Time 14.7 L ABG pH ABG pO2 ABG O2 Saturation ABG Base Excess ABG Hemoglobin Sodium Potassium Chloride 94.9 L Carbon Dioxide 20 L BUN 34 H Creatinine 2.7 H Glucose 244 H POC Glucose Lactic Acid Calcium 10.6 H Phosphorus Total Creatine Kinase Troponin T 0.297 H* Total Protein Albumin Cholesterol 264 H LDL Cholesterol Direct 182 H Ur Specific [place] Urine WBC (Auto) Urine Creatinine 03/18/19 03/18/19 03/18/19 15:33 15:33 17:55 WBC RBC Hgb Hct MCV MCH Plt Count Lymph % (Auto) Lymph # [place] # Seg Neutrophils % Seg Neuts % (Manual) Lymphocytes % (Manual) Monocytes % (Manual) Seg Neutrophils # Seg Neutrophils # Man Lymphocytes # (Manual) Monocytes # (Manual) Thrombin Time ABG pH ABG pO2 ABG O2 Saturation ABG Base Excess ABG Hemoglobin Sodium Potassium Chloride Carbon Dioxide BUN Creatinine Glucose POC Glucose Lactic Acid 2.70 H* 3.00 H* Calcium Phosphorus Total Creatine Kinase 2896 H Troponin T Total Protein Albumin Cholesterol LDL Cholesterol Direct Ur Specific [place] Urine WBC (Auto) Urine Creatinine 03/18/19 03/18/19 03/18/19 20:22 Unknown Unknown WBC RBC Hgb Hct MCV MCH Plt Count Lymph % (Auto) Lymph # [place] # Seg Neutrophils % Seg Neuts % (Manual) Lymphocytes % (Manual) Monocytes % (Manual) Seg Neutrophils # Seg Neutrophils # Man Lymphocytes # (Manual) Monocytes # (Manual) Thrombin Time ABG pH ABG pO2 183.5 H ABG O2 Saturation 99.2 H ABG Base Excess ABG Hemoglobin 12.7 L Sodium Potassium Chloride Carbon Dioxide BUN Creatinine Glucose POC Glucose Lactic Acid 3.00 H* Calcium Phosphorus Total Creatine Kinase Troponin T Total Protein Albumin Cholesterol LDL Cholesterol Direct Ur Specific [place] 1.046 H Urine WBC (Auto) 23.0 H Urine Creatinine 03/19/19 03/19/19 03/19/19 01:38 02:56 02:56 WBC 25.4 H RBC Hgb 11.3 L Hct 34.1 L D MCV 83 L MCH 27 L Plt Count 496 H Lymph % (Auto) Lymph # [place] # Seg Neutrophils % Seg Neuts % (Manual) 90.0 H Lymphocytes % (Manual) 3.0 L Monocytes % (Manual) Seg Neutrophils # Seg Neutrophils # Man 22.9 H Lymphocytes # (Manual) 0.8 L Monocytes # (Manual) 1.8 H Thrombin Time ABG pH ABG pO2 ABG O2 Saturation ABG Base Excess ABG Hemoglobin Sodium Potassium Chloride Carbon Dioxide 20 L BUN 34 H Creatinine 2.5 H Glucose 208 H POC Glucose Lactic Acid Calcium Phosphorus Total Creatine Kinase Troponin T Total Protein 5.9 L Albumin 2.9 L Cholesterol LDL Cholesterol Direct Ur Specific [place] Urine WBC (Auto) Urine Creatinine 142.9 H 03/19/19 03/19/19 03/19/19 05:12 14:39 23:08 WBC RBC Hgb Hct MCV MCH Plt Count Lymph % (Auto) Lymph # [place] # Seg Neutrophils % Seg Neuts % (Manual) Lymphocytes % (Manual) Monocytes % (Manual) Seg Neutrophils # Seg Neutrophils # Man Lymphocytes # (Manual) Monocytes # (Manual) Thrombin Time ABG pH ABG pO2 201.8 H ABG O2 Saturation 99.3 H ABG Base Excess -2.8 L ABG Hemoglobin Sodium Potassium Chloride Carbon Dioxide BUN Creatinine Glucose POC Glucose 185 H Lactic Acid Calcium Phosphorus Total Creatine Kinase Troponin T 0.200 H* D Total Protein Albumin Cholesterol LDL Cholesterol Direct Ur Specific [place] Urine WBC (Auto) Urine Creatinine 03/20/19 03/20/19 03/20/19 00:12 03:44 05:19 WBC RBC Hgb Hct MCV MCH Plt Count Lymph % (Auto) Lymph # [place] # Seg Neutrophils % Seg Neuts % (Manual) Lymphocytes % (Manual) Monocytes % (Manual) Seg Neutrophils # Seg Neutrophils # Man Lymphocytes # (Manual) Monocytes # (Manual) Thrombin Time ABG pH ABG pO2 122.8 H ABG O2 Saturation ABG Base Excess -3.0 L ABG Hemoglobin 8.9 L Sodium Potassium Chloride Carbon Dioxide BUN Creatinine Glucose POC Glucose 193 H 202 H Lactic Acid Calcium Phosphorus Total Creatine Kinase Troponin T Total Protein Albumin Cholesterol LDL Cholesterol Direct Ur Specific [place] Urine WBC (Auto) Urine Creatinine 03/20/19 03/20/19 03/20/19 05:26 05:26 05:26 WBC 19.5 H RBC Hgb 10.8 L Hct 33.0 L MCV 82 L MCH 27 L Plt Count Lymph % (Auto) 5.4 L Lymph # 1.1 L [place] # 1.4 H Seg Neutrophils % 86.8 H Seg Neuts % (Manual) Lymphocytes % (Manual) Monocytes % (Manual) Seg Neutrophils # 16.9 H Seg Neutrophils # Man Lymphocytes # (Manual) Monocytes # (Manual) Thrombin Time ABG pH ABG pO2 ABG O2 Saturation ABG Base Excess ABG Hemoglobin Sodium Potassium Chloride 110.5 H Carbon Dioxide 17 L BUN 41 H Creatinine 2.6 H Glucose 199 H POC Glucose Lactic Acid Calcium Phosphorus Total Creatine Kinase 396 H Troponin T 0.191 H* Total Protein Albumin Cholesterol LDL Cholesterol Direct Ur Specific [place] Urine WBC (Auto) Urine Creatinine 03/20/19 03/20/19 03/20/19 11:33 15:23 18:28 WBC RBC Hgb Hct MCV MCH Plt Count Lymph % (Auto) Lymph # [place] # Seg Neutrophils % Seg Neuts % (Manual) Lymphocytes % (Manual) Monocytes % (Manual) Seg Neutrophils # Seg Neutrophils # Man Lymphocytes # (Manual) Monocytes # (Manual) Thrombin Time ABG pH ABG pO2 ABG O2 Saturation ABG Base Excess ABG Hemoglobin Sodium Potassium Chloride Carbon Dioxide BUN Creatinine Glucose POC Glucose 196 H 190 H Lactic Acid Calcium Phosphorus Total Creatine Kinase Troponin T 0.214 H* Total Protein Albumin Cholesterol LDL Cholesterol Direct Ur Specific [place] Urine WBC (Auto) Urine Creatinine 03/20/19 03/21/19 03/21/19 23:14 03:29 04:07 WBC RBC Hgb Hct MCV MCH Plt Count Lymph % (Auto) Lymph # [place] # Seg Neutrophils % Seg Neuts % (Manual) Lymphocytes % (Manual) Monocytes % (Manual) Seg Neutrophils # Seg Neutrophils # Man Lymphocytes # (Manual) Monocytes # (Manual) Thrombin Time ABG pH 7.483 H ABG pO2 97.5 H ABG O2 Saturation ABG Base Excess ABG Hemoglobin 8.5 L Sodium 146 H Potassium 3.1 L D Chloride 109.8 H Carbon Dioxide BUN 35 H Creatinine 1.9 H Glucose 200 H POC Glucose 190 H Lactic Acid Calcium Phosphorus 1.80 L Total Creatine Kinase Troponin T Total Protein Albumin Cholesterol LDL Cholesterol Direct Ur Specific [place] Urine WBC (Auto) Urine Creatinine 03/21/19 03/21/19 03/21/19 05:22 11:52 18:06 WBC RBC Hgb Hct MCV MCH Plt Count Lymph % (Auto) Lymph # [place] # Seg Neutrophils % Seg Neuts % (Manual) Lymphocytes % (Manual) Monocytes % (Manual) Seg Neutrophils # Seg Neutrophils # Man Lymphocytes # (Manual) Monocytes # (Manual) Thrombin Time ABG pH ABG pO2 ABG O2 Saturation ABG Base Excess ABG Hemoglobin Sodium Potassium Chloride Carbon Dioxide BUN Creatinine Glucose POC Glucose 189 H 236 H 164 H Lactic Acid Calcium Phosphorus Total Creatine Kinase Troponin T Total Protein Albumin Cholesterol LDL Cholesterol Direct Ur Specific [place] Urine WBC (Auto) Urine Creatinine 03/21/19 03/22/19 03/22/19 23:36 04:47 04:47 WBC RBC 3.62 L Hgb 10.1 L Hct 29.9 L MCV 83 L MCH Plt Count Lymph % (Auto) Lymph # [place] # Seg Neutrophils % Seg Neuts % (Manual) 83.0 H Lymphocytes % (Manual) 8.0 L Monocytes % (Manual) 8.0 H Seg Neutrophils # Seg Neutrophils # Man 8.8 H Lymphocytes # (Manual) 0.8 L Monocytes # (Manual) Thrombin Time ABG pH ABG pO2 ABG O2 Saturation ABG Base Excess ABG Hemoglobin Sodium Potassium Chloride 107.8 H Carbon Dioxide 19 L BUN 28 H Creatinine 1.6 H Glucose 198 H POC Glucose 211 H Lactic Acid Calcium Phosphorus 2.40 L D Total Creatine Kinase Troponin T Total Protein Albumin Cholesterol LDL Cholesterol Direct Ur Specific [place] Urine WBC (Auto) Urine Creatinine 03/22/19 03/22/19 03/22/19 05:20 05:29 10:10 WBC RBC Hgb Hct MCV MCH Plt Count Lymph % (Auto) Lymph # [place] # Seg Neutrophils % Seg Neuts % (Manual) Lymphocytes % (Manual) Monocytes % (Manual) Seg Neutrophils # Seg Neutrophils # Man Lymphocytes # (Manual) Monocytes # (Manual) Thrombin Time ABG pH 7.481 H 7.483 H ABG pO2 74.6 L 79.4 L ABG O2 Saturation ABG Base Excess ABG Hemoglobin 9.7 L 9.2 L Sodium Potassium Chloride Carbon Dioxide BUN Creatinine Glucose POC Glucose 202 H Lactic Acid Calcium Phosphorus Total Creatine Kinase Troponin T Total Protein Albumin Cholesterol LDL Cholesterol Direct Ur Specific [place] Urine WBC (Auto) Urine Creatinine 03/22/19 03/22/19 03/22/19 12:29 17:34 23:16 WBC RBC Hgb Hct MCV MCH Plt Count Lymph % (Auto) Lymph # [place] # Seg Neutrophils % Seg Neuts % (Manual) Lymphocytes % (Manual) Monocytes % (Manual) Seg Neutrophils # Seg Neutrophils # Man Lymphocytes # (Manual) Monocytes # (Manual) Thrombin Time ABG pH ABG pO2 ABG O2 Saturation ABG Base Excess ABG Hemoglobin Sodium Potassium Chloride Carbon Dioxide BUN Creatinine Glucose POC Glucose 234 H 225 H 205 H Lactic Acid Calcium Phosphorus Total Creatine Kinase Troponin T Total Protein Albumin Cholesterol LDL Cholesterol Direct Ur Specific [place] Urine WBC (Auto) Urine Creatinine 03/23/19 03/23/19 03/23/19 03:27 03:50 04:17 WBC RBC Hgb Hct MCV MCH Plt Count Lymph % (Auto) Lymph # [place] # Seg Neutrophils % Seg Neuts % (Manual) Lymphocytes % (Manual) Monocytes % (Manual) Seg Neutrophils # Seg Neutrophils # Man Lymphocytes # (Manual) Monocytes # (Manual) Thrombin Time ABG pH 7.486 H ABG pO2 75.2 L ABG O2 Saturation ABG Base Excess ABG Hemoglobin 9.6 L Sodium Potassium Chloride Carbon Dioxide BUN Creatinine Glucose POC Glucose 113 H 173 H Lactic Acid Calcium Phosphorus Total Creatine Kinase Troponin T Total Protein Albumin Cholesterol LDL Cholesterol Direct Ur Specific [place] Urine WBC (Auto) Urine Creatinine 03/23/19 05:12 WBC RBC Hgb Hct MCV MCH Plt Count Lymph % (Auto) Lymph # [place] # Seg Neutrophils % Seg Neuts % (Manual) Lymphocytes % (Manual) Monocytes % (Manual) Seg Neutrophils # Seg Neutrophils # Man Lymphocytes # (Manual) Monocytes # (Manual) Thrombin Time ABG pH ABG pO2 ABG O2 Saturation ABG Base Excess ABG Hemoglobin Sodium Potassium Chloride 107.3 H Carbon Dioxide 21 L BUN 27 H Creatinine 1.6 H Glucose 166 H POC Glucose Lactic Acid Calcium Phosphorus Total Creatine Kinase Troponin T Total Protein Albumin Cholesterol LDL Cholesterol Direct Ur Specific [place] Urine WBC (Auto) Urine Creatinine Allied health notes reviewed: nursing
[2019-03-23] MEDS: HEPARIN 5,000 UNIT/1 ML VIAL SUB-Q SCH ×2 (10:01→22:01)
[2019-03-23] MEDS: POTASSIUM CHLORIDE ER 20 MEQ TAB PO SCH (10:17)
--- NOTE | 2019-03-23 10:39 | Progress Note ---
Assessment and Plan / Sepsis with possible meningitis cannot r/o meningitis as presented with seizure, encephalopathy and elevated white count Admited to ICU with Sepsis protocol: IV fluid resuscitation therapy, serial CBC, BMP, lactic acid level, IV abx, ordered Cx monitor urine output every shift, maintain mean arterial pressure greater than or equal to 60, IV pressor support as clinically indicated. negative blood cx report, URINE for MSSA - could be a skin contaminant ordered for LP - placed on Iv coverage for viral and bacterial meningitis, ID consulted s/p LP 03/20/19 - study result not convincing for bacterial meningitis - but viral meningoencephalitis still in differential as CSF has high RBC, cont acyclovir for now /Acute encephalopathy likely from Sepsis vs CRISTÓBAL Vs underlying seizure monitor clinically. MRI brain w/o any acute change cont to treat underlying cause / CRISTÓBAL (acute kidney injury): likely vasomotor nephropathy cont IV fluid resuscitation therapy, monitor urine output every shift, strict I's/O, Nephrology following /hypokalemia, repleted, follow BMP / metabolic Acidosis - due to sepsis vs CRISTÓBAL IV fluid resuscitation therapy, monitor urine output every shift, s/p IV bicarbonate therapy. / Acute respiratory failure with hypoxia Patient intubated and placed on ventilatory support, daily SBT, sedation holiday, pulmonary toilet, pulmonary team consulted in ED, wean vent as tolerated, cont nebs, / HLD (hyperlipidemia) TF diet for now, statin therapy as clinically indicated. / DM type 2 - SSI as needed /Acute onset seizure, started on keppra - EEG showed + for seizure, neurology following /DVT prophylaxis SCD to bilateral lower extremities while in bed, prophylactic heparin. The high probability of a clinically significant, sudden or life threatening deterioration of the [cardiac, pulmonary, renal, neurologic] system(s) required my full and direct attention, intervention and personal management. The aggregate critical care time was [35] minutes. This time is in addition to time spent performing reported procedures but includes the following: [x] Data Review and interpretation [x] Patient assessment and monitoring of vital signs [x] Documentation [x] Medication orders and management Subjective Date of service: 03/23/19 Principal diagnosis: Severe Sepsis; CRISTÓBAL; Ac hypoxemic resp failure; DM II; Seizures; AMS Interval history: Patient seen and examined Patient remained intubated, off sedation afebrile, white count trended down off sedation since 03/20 - patient remained unresponsive discussed with family at bedside Objective - Exam Narrative Exam: General appearance: Present: other (intubated), NAD - EENT Eyes: no scleral icterus, no conjunctival injection ENT: clear oral mucosa Ears: bilateral: normal - Neck Neck: no rigidity, no enlarged thyroid - Respiratory Respiratory effort: other (on mechanical ventilation) Respiratory: bilateral: CTA - Cardiovascular Rhythm: regular Heart Sounds: Present: S1 & S2. Absent: gallop, rub Extremities: pulses intact, No edema, normal color - Gastrointestinal General gastrointestinal: Present: soft, non-tender, non-distended, normal bowel sounds - Integumentary Integumentary: clear, warm, dry - Musculoskeletal Musculoskeletal: other (intubated) - Neurologic Neurologic: other (unable to assess), moves extremities - does not follow commend off sedation - Psychiatric Psychiatric: other (intubated) - Constitutional Vitals: Vital Signs - 12hr 03/22/19 03/22/19 03/23/19 23:00 23:36 00:00 Temperature 98.7 F Pulse Rate 107 H 107 H Pulse Rate [ 107 H From Monitor] Respiratory 22 23 Rate Blood Pressure 146/67 164/74 O2 Sat by Pulse 98 95 Oximetry 03/23/19 03/23/19 03/23/19 00:14 01:00 02:00 Temperature Pulse Rate 107 H 105 H 107 H Pulse Rate [ From Monitor] Respiratory 25 H 25 H Rate Blood Pressure 164/74 170/77 152/82 O2 Sat by Pulse 97 99 95 Oximetry 03/23/19 03/23/19 03/23/19 03:00 03:50 04:00 Temperature Pulse Rate 115 H 108 H 101 H Pulse Rate [ 96 H From Monitor] Respiratory 31 H 20 Rate Blood Pressure 149/86 144/61 138/60 O2 Sat by Pulse 96 94 Oximetry 03/23/19 03/23/19 03/23/19 04:03 05:00 06:00 Temperature 99.0 F Pulse Rate 103 H 107 H Pulse Rate [ From Monitor] Respiratory 18 22 Rate Blood Pressure 159/73 142/72 O2 Sat by Pulse 97 94 Oximetry 03/23/19 03/23/19 03/23/19 07:00 08:00 08:20 Temperature Pulse Rate 101 H 108 H 105 H Pulse Rate [ From Monitor] Respiratory 19 21 18 Rate Blood Pressure 131/59 134/67 123/54 O2 Sat by Pulse 96 97 96 Oximetry 03/23/19 09:00 Temperature Pulse Rate 102 H Pulse Rate [ From Monitor] Respiratory 19 Rate Blood Pressure 123/54 O2 Sat by Pulse 93 Oximetry - Labs CBC & Chem 7: 03/22/19 04:47 03/24/19 05:15 Labs: Abnormal lab results 03/22/19 03/22/19 03/22/19 Range/Units 12:29 17:34 23:16 ABG pH (7.350-7.450) pH Units ABG pO2 (80.0-90.0) mm Hg ABG Hemoglobin (14.0-18.0) gm/dl Chloride (98-107) mmol/L Carbon Dioxide (22-30) mmol/L BUN (9-20) mg/dL Creatinine (0.8-1.5) mg/dL Glucose (75-100) mg/dL POC Glucose 234 H 225 H 205 H (70-105) 03/23/19 03/23/19 03/23/19 Range/Units 03:27 03:50 04:17 ABG pH 7.486 H (7.350-7.450) pH Units ABG pO2 75.2 L (80.0-90.0) mm Hg ABG Hemoglobin 9.6 L (14.0-18.0) gm/dl Chloride (98-107) mmol/L Carbon Dioxide (22-30) mmol/L BUN (9-20) mg/dL Creatinine (0.8-1.5) mg/dL Glucose (75-100) mg/dL POC Glucose 113 H 173 H (70-105) 03/23/19 Range/Units 05:12 ABG pH (7.350-7.450) pH Units ABG pO2 (80.0-90.0) mm Hg ABG Hemoglobin (14.0-18.0) gm/dl Chloride 107.3 H (98-107) mmol/L Carbon Dioxide 21 L (22-30) mmol/L BUN 27 H (9-20) mg/dL Creatinine 1.6 H (0.8-1.5) mg/dL Glucose 166 H (75-100) mg/dL POC Glucose (70-105)
--- NOTE | 2019-03-23 11:04 | Progress Note ---
Assessment and Plan Cultures: 03/18/2019 blood culture: No growth 03/18/2019 urine culture: Staph aureus - MSSA (10K-100K) CSF culture: no growth thus far A/P: 68-year-old male with a past medical history of hypertension, diabetes, obesity admitted after being found down. #Sepsis with acute encephalopathy: Present with leukocytosis and tachycardia. Possible meningitis v/s encephalitis v/s reactive from seizures. #?Meningoencephalitis: CSF with mild pleocytosis, not consistent with acute bacterial meningitis. 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 MRI brain without contrast was unremarkable for acute etiology. #CRISTÓBAL: renally dose antibiotics as appropriate, creatinine improving. #MSSA in urine: Not a common uropathogen. Blood cultures are negative, so bacteremic spillover/renal seeding less likely. TTE images of poor quality. Could also be a skin contaminant. We'll continue to treat for now. Recommendations: - continue Ceftriaxone 1 gm daily for total of 7 days - continue IV Acyclovir till HSV PCR results are back Brendon Conklin MD, FACP [facility] ([facility] C: [phone] O: [phone] F: [phone] Subjective Date of service: 03/23/19 Principal diagnosis: Severe Sepsis; CRISTÓBAL; Ac hypoxemic resp failure; DM II; Seizures; AMS Interval history: Remains unresponsive. No fever. On the vent. Objective - Exam Narrative Exam: Physical Exam: Constitutional: unresponsive, intubated Head, Ears, Nose: Normocephalic, atraumatic. External ears, nose normal Eyes: Conjunctivae/corneas clear. No icterus. No ptosis. Neck: intubated Oral: intubated Cardiovascular: S1, S2 normal. Respiratory: Good air entry, clear to auscultation bilaterally GI: Soft, non-tender; bowel sounds normal. No peritoneal signs Musculoskeletal: No pedal edema, no cyanosis. Skin: No rash or abscess Hem/Lymphatic: No palpable cervical or supraclavicular nodes. No lymphangitis Psych: no agitation Neurological: comatose, intubated, on vent - Constitutional Vitals: Vital Signs Temp Pulse Resp BP Pulse Ox 99.0 F 102 H 19 123/54 93 03/23/19 04:03 03/23/19 09:00 03/23/19 09:00 03/23/19 09:00 03/23/19 09:00 Temperature -Last 24 Hours Temperature 99.0 F Temperature 98.7 F Temperature 98.9 F Temperature 100.7 F Temperature 100.4 F - Labs CBC & Chem 7: 03/22/19 04:47 03/23/19 05:12 Labs: Abnormal lab results 03/22/19 03/22/19 03/22/19 Range/Units 12:29 17:34 23:16 ABG pH (7.350-7.450) pH Units ABG pO2 (80.0-90.0) mm Hg ABG Hemoglobin (14.0-18.0) gm/dl Chloride (98-107) mmol/L Carbon Dioxide (22-30) mmol/L BUN (9-20) mg/dL Creatinine (0.8-1.5) mg/dL Glucose (75-100) mg/dL POC Glucose 234 H 225 H 205 H (70-105) 03/23/19 03/23/19 03/23/19 Range/Units 03:27 03:50 04:17 ABG pH 7.486 H (7.350-7.450) pH Units ABG pO2 75.2 L (80.0-90.0) mm Hg ABG Hemoglobin 9.6 L (14.0-18.0) gm/dl Chloride (98-107) mmol/L Carbon Dioxide (22-30) mmol/L BUN (9-20) mg/dL Creatinine (0.8-1.5) mg/dL Glucose (75-100) mg/dL POC Glucose 113 H 173 H (70-105) 03/23/19 Range/Units 05:12 ABG pH (7.350-7.450) pH Units ABG pO2 (80.0-90.0) mm Hg ABG Hemoglobin (14.0-18.0) gm/dl Chloride 107.3 H (98-107) mmol/L Carbon Dioxide 21 L (22-30) mmol/L BUN 27 H (9-20) mg/dL Creatinine 1.6 H (0.8-1.5) mg/dL Glucose 166 H (75-100) mg/dL POC Glucose (70-105)
[2019-03-24] MEDS: INSULIN LISPRO 100 UNIT/ML SUB-Q SCH ×5 (00:32→23:50)
--- NOTE | 2019-03-24 02:47 | XRay Report ---
CHEST 1 VIEW INDICATION / CLINICAL INFORMATION: follow up respiratory failure. COMPARISON: 03/23/2019 FINDINGS: SUPPORT DEVICES: Unchanged HEART / MEDIASTINUM: Unchanged LUNGS / PLEURA: There are low lung volumes. There is mild basilar atelectasis. No pneumothorax. ADDITIONAL FINDINGS: No significant additional findings. IMPRESSION: 1. No significant change. Signer Name: Aaron Coker MD Signed: 03/24/2019 2:42 AM Workstation Name: [id number]
[2019-03-24] MEDS: SODIUM CHLORIDE 0.9% IV SCH ×3 (04:32→20:02)
[2019-03-24] MEDS: ACYCLOVIR IV SCH ×3 (04:32→20:02)
[2019-03-24] MEDS: SODIUM CHLORIDE 0.45% 1000 ML 1,000 ML IV SCH (05:37)
[2019-03-24 06:18] LABS: Calcium 8.5 mg/dL (8.4-10.2)
[2019-03-24] MEDS: levETIRAcetam 500 MG/5 ML ORAL LIQD PO SCH ×2 (09:02→22:06)
[2019-03-24] MEDS: FAMOTIDINE 20 MG TAB PO SCH ×2 (09:03→22:07)
[2019-03-24] MEDS: HEPARIN 5,000 UNIT/1 ML VIAL SUB-Q SCH ×2 (09:03→22:07)
--- NOTE | 2019-03-24 09:26 | Progress Note ---
Assessment and Plan Severe Sepsis CRISTÓBAL Acidosis Acute respiratory failure with hypoxia HLD (hyperlipidemia) DM type 2 Acute onset seizure Acute encephalopathy (Toxic/Met) Hypophosphatemia - follow CSF studies - continue empiric broad spectrum coverage per ID recommendations (Including Listeria coverage) - phosphorus replaced - reduced set rate on MVS to 12/min - continue bronchodilators with pulmonary hygiene per RT - begin daily SAT's and SBT assessment as tolerated in am - continue to wean supplemental oxygen for target O2 sat's > 90% acutely - VAP bundle addressed - continue lung protective strategies - wean per pulmonary driven protocols otherwise - enteral nutrition at goal rate as tolerated - neurology evaluation ongoing (AED's per neuro) - accuchecks with glycemic control per SSI (While critically ill target blood g lucose of 140-180 mg/dL; avoid hypoglycemia) - prn analgesia per CPOT score - Maintenance of sleep-wake cycle, avoid delirium - G.I. & VTE prophylaxis - PT/OT/ROM exercises - continue mobility protocols for pressure ulcer prophylaxis - Monitor hemodynamics closely - continue other care per attending / other analytical consultant's .... re-evaluate in am & prn CONDITION: CRITICAL PROGNOSIS: GUARDED CODE STATUS: FULL CODE The high probability of a clinically significant, sudden or life-threatening deterioration of the [respiratory, cardiovascular & neurologic] system(s) required my full and direct attention, intervention and personal management. The aggregate critical care time was [35] minutes without overlap. Time includes spent on; [x] Data Review and interpretation [x] Patient assessment and monitoring of vital signs [x] Documentation [x] Medication orders and management Subjective Date of service: 03/24/19 Principal diagnosis: Severe Sepsis; CRISTÓBAL; Ac hypoxemic resp failure; DM II; Seizures; AMS Interval history: Patient is seen today for: Seen and examined at bedside; 24hour events reviewed; nursing and respiratory care staff consulted; no adverse overnight events reported to me; Objective Vital Signs - 12hr 03/23/19 03/23/19 03/23/19 21:30 22:00 22:30 Temperature Pulse Rate 102 H 101 H 92 H Pulse Rate [ From Monitor] Respiratory 21 20 16 Rate Blood Pressure 142/63 143/56 121/46 O2 Sat by Pulse 94 97 Oximetry 03/23/19 03/23/19 03/23/19 23:00 23:11 23:12 Temperature 98.3 F Pulse Rate 99 H 103 H Pulse Rate [ From Monitor] Respiratory 19 17 Rate Blood Pressure 117/43 117/43 O2 Sat by Pulse 96 98 Oximetry 03/23/19 03/24/19 03/24/19 23:30 00:00 00:12 Temperature Pulse Rate 100 H 99 H 94 H Pulse Rate [ 94 H From Monitor] Respiratory 22 19 Rate Blood Pressure 125/53 138/60 125/53 O2 Sat by Pulse 94 98 96 Oximetry 03/24/19 03/24/19 03/24/19 00:30 01:00 01:30 Temperature Pulse Rate 98 H 98 H 94 H Pulse Rate [ From Monitor] Respiratory 17 20 18 Rate Blood Pressure 136/60 149/68 129/66 O2 Sat by Pulse 97 95 96 Oximetry 03/24/19 03/24/19 03/24/19 02:00 02:30 03:00 Temperature Pulse Rate 95 H 94 H 93 H Pulse Rate [ From Monitor] Respiratory 20 21 19 Rate Blood Pressure 151/62 163/71 145/69 O2 Sat by Pulse 95 95 95 Oximetry 03/24/19 03/24/19 03/24/19 03:20 03:30 04:00 Temperature 98.8 F Pulse Rate 90 94 H Pulse Rate [ 91 H From Monitor] Respiratory 17 18 Rate Blood Pressure 145/63 123/72 O2 Sat by Pulse 96 95 Oximetry 03/24/19 03/24/19 03/24/19 04:15 04:30 05:00 Temperature Pulse Rate 91 H 93 H 88 Pulse Rate [ From Monitor] Respiratory 19 16 Rate Blood Pressure 123/72 137/73 127/73 O2 Sat by Pulse 97 95 94 Oximetry 03/24/19 03/24/19 03/24/19 05:30 06:00 06:30 Temperature Pulse Rate 101 H 97 H 102 H Pulse Rate [ From Monitor] Respiratory 21 20 18 Rate Blood Pressure 127/73 121/63 140/66 O2 Sat by Pulse 98 95 96 Oximetry 03/24/19 03/24/19 03/24/19 07:00 07:30 08:00 Temperature 99.5 F Pulse Rate 94 H 91 H 97 H Pulse Rate [ 92 H From Monitor] Respiratory 18 20 20 Rate Blood Pressure 116/51 119/54 105/60 O2 Sat by Pulse 94 94 92 Oximetry 03/24/19 03/24/19 08:04 08:30 Temperature Pulse Rate 95 H 93 H Pulse Rate [ From Monitor] Respiratory 16 Rate Blood Pressure 105/60 113/52 O2 Sat by Pulse 96 94 Oximetry Constitutional: no acute distress, other (elderly looking CM nornocephalic ri ding set rate on MVS) Eyes: non-icteric ENT: oropharynx moist, other (ETT 23 cm MARILYN) Neck: supple, no lymphadenopathy, no JVD Effort: normal Ascultation: Bilateral: diminished breath sounds, rhonchi Percussion: Bilateral: not dull Cardiovascular: regular rate and rhythm Gastrointestinal: normoactive bowel sounds, soft, non-tender, non-distended Integumentary: normal Extremities: no cyanosis, no edema, pink and warm, pulses normal Neurologic: unable to assess Psychiatric: other (unable to assess re: AMS) CBC and BMP: 03/22/19 04:47 03/24/19 05:15 ABG, PT/INR, D-dimer: ABG ABG pH 7.486 pH Units (7.350-7.450) H 03/23/19 03:50 ABG pCO2 33.4 mm Hg 03/23/19 03:50 ABG pO2 75.2 mm Hg (80.0-90.0) L 03/23/19 03:50 ABG O2 Saturation 97.0 % (95.0-99.0) 03/23/19 03:50 PT/INR, D-dimer PT 14.4 Sec. (12.2-14.9) 03/18/19 14:17 INR 1.11 (0.87-1.13) 03/18/19 14:17 Abnormal lab findings: Abnormal Labs 03/18/19 03/18/19 03/18/19 14:17 14:17 14:17 WBC 38.1 H RBC Hgb Hct MCV 83 L MCH 27 L Plt Count 740 H Lymph % (Auto) Lymph # [place] # Seg Neutrophils % Seg Neuts % (Manual) 93.0 H Lymphocytes % (Manual) 2.5 L Monocytes % (Manual) Seg Neutrophils # Seg Neutrophils # Man 35.4 H Lymphocytes # (Manual) 1.0 L Monocytes # (Manual) 1.5 H Thrombin Time 14.7 L ABG pH ABG pO2 ABG O2 Saturation ABG Base Excess ABG Hemoglobin Sodium Potassium Chloride 94.9 L Carbon Dioxide 20 L BUN 34 H Creatinine 2.7 H Glucose 244 H POC Glucose Lactic Acid Calcium 10.6 H Phosphorus Total Creatine Kinase Troponin T 0.297 H* Total Protein Albumin Cholesterol 264 H LDL Cholesterol Direct 182 H Ur Specific [place] Urine WBC (Auto) Urine Creatinine 03/18/19 03/18/19 03/18/19 15:33 15:33 17:55 WBC RBC Hgb Hct MCV MCH Plt Count Lymph % (Auto) Lymph # [place] # Seg Neutrophils % Seg Neuts % (Manual) Lymphocytes % (Manual) Monocytes % (Manual) Seg Neutrophils # Seg Neutrophils # Man Lymphocytes # (Manual) Monocytes # (Manual) Thrombin Time ABG pH ABG pO2 ABG O2 Saturation ABG Base Excess ABG Hemoglobin Sodium Potassium Chloride Carbon Dioxide BUN Creatinine Glucose POC Glucose Lactic Acid 2.70 H* 3.00 H* Calcium Phosphorus Total Creatine Kinase 2896 H Troponin T Total Protein Albumin Cholesterol LDL Cholesterol Direct Ur Specific [place] Urine WBC (Auto) Urine Creatinine 03/18/19 03/18/19 03/18/19 20:22 Unknown Unknown WBC RBC Hgb Hct MCV MCH Plt Count Lymph % (Auto) Lymph # [place] # Seg Neutrophils % Seg Neuts % (Manual) Lymphocytes % (Manual) Monocytes % (Manual) Seg Neutrophils # Seg Neutrophils # Man Lymphocytes # (Manual) Monocytes # (Manual) Thrombin Time ABG pH ABG pO2 183.5 H ABG O2 Saturation 99.2 H ABG Base Excess ABG Hemoglobin 12.7 L Sodium Potassium Chloride Carbon Dioxide BUN Creatinine Glucose POC Glucose Lactic Acid 3.00 H* Calcium Phosphorus Total Creatine Kinase Troponin T Total Protein Albumin Cholesterol LDL Cholesterol Direct Ur Specific [place] 1.046 H Urine WBC (Auto) 23.0 H Urine Creatinine 03/19/19 03/19/19 03/19/19 01:38 02:56 02:56 WBC 25.4 H RBC Hgb 11.3 L Hct 34.1 L D MCV 83 L MCH 27 L Plt Count 496 H Lymph % (Auto) Lymph # [place] # Seg Neutrophils % Seg Neuts % (Manual) 90.0 H Lymphocytes % (Manual) 3.0 L Monocytes % (Manual) Seg Neutrophils # Seg Neutrophils # Man 22.9 H Lymphocytes # (Manual) 0.8 L Monocytes # (Manual) 1.8 H Thrombin Time ABG pH ABG pO2 ABG O2 Saturation ABG Base Excess ABG Hemoglobin Sodium Potassium Chloride Carbon Dioxide 20 L BUN 34 H Creatinine 2.5 H Glucose 208 H POC Glucose Lactic Acid Calcium Phosphorus Total Creatine Kinase Troponin T Total Protein 5.9 L Albumin 2.9 L Cholesterol LDL Cholesterol Direct Ur Specific [place] Urine WBC (Auto) Urine Creatinine 142.9 H 03/19/19 03/19/19 03/19/19 05:12 14:39 23:08 WBC RBC Hgb Hct MCV MCH Plt Count Lymph % (Auto) Lymph # [place] # Seg Neutrophils % Seg Neuts % (Manual) Lymphocytes % (Manual) Monocytes % (Manual) Seg Neutrophils # Seg Neutrophils # Man Lymphocytes # (Manual) Monocytes # (Manual) Thrombin Time ABG pH ABG pO2 201.8 H ABG O2 Saturation 99.3 H ABG Base Excess -2.8 L ABG Hemoglobin Sodium Potassium Chloride Carbon Dioxide BUN Creatinine Glucose POC Glucose 185 H Lactic Acid Calcium Phosphorus Total Creatine Kinase Troponin T 0.200 H* D Total Protein Albumin Cholesterol LDL Cholesterol Direct Ur Specific [place] Urine WBC (Auto) Urine Creatinine 03/20/19 03/20/19 03/20/19 00:12 03:44 05:19 WBC RBC Hgb Hct MCV MCH Plt Count Lymph % (Auto) Lymph # [place] # Seg Neutrophils % Seg Neuts % (Manual) Lymphocytes % (Manual) Monocytes % (Manual) Seg Neutrophils # Seg Neutrophils # Man Lymphocytes # (Manual) Monocytes # (Manual) Thrombin Time ABG pH ABG pO2 122.8 H ABG O2 Saturation ABG Base Excess -3.0 L ABG Hemoglobin 8.9 L Sodium Potassium Chloride Carbon Dioxide BUN Creatinine Glucose POC Glucose 193 H 202 H Lactic Acid Calcium Phosphorus Total Creatine Kinase Troponin T Total Protein Albumin Cholesterol LDL Cholesterol Direct Ur Specific [place] Urine WBC (Auto) Urine Creatinine 03/20/19 03/20/19 03/20/19 05:26 05:26 05:26 WBC 19.5 H RBC Hgb 10.8 L Hct 33.0 L MCV 82 L MCH 27 L Plt Count Lymph % (Auto) 5.4 L Lymph # 1.1 L [place] # 1.4 H Seg Neutrophils % 86.8 H Seg Neuts % (Manual) Lymphocytes % (Manual) Monocytes % (Manual) Seg Neutrophils # 16.9 H Seg Neutrophils # Man Lymphocytes # (Manual) Monocytes # (Manual) Thrombin Time ABG pH ABG pO2 ABG O2 Saturation ABG Base Excess ABG Hemoglobin Sodium Potassium Chloride 110.5 H Carbon Dioxide 17 L BUN 41 H Creatinine 2.6 H Glucose 199 H POC Glucose Lactic Acid Calcium Phosphorus Total Creatine Kinase 396 H Troponin T 0.191 H* Total Protein Albumin Cholesterol LDL Cholesterol Direct Ur Specific [place] Urine WBC (Auto) Urine Creatinine 03/20/19 03/20/19 03/20/19 11:33 15:23 18:28 WBC RBC Hgb Hct MCV MCH Plt Count Lymph % (Auto) Lymph # [place] # Seg Neutrophils % Seg Neuts % (Manual) Lymphocytes % (Manual) Monocytes % (Manual) Seg Neutrophils # Seg Neutrophils # Man Lymphocytes # (Manual) Monocytes # (Manual) Thrombin Time ABG pH ABG pO2 ABG O2 Saturation ABG Base Excess ABG Hemoglobin Sodium Potassium Chloride Carbon Dioxide BUN Creatinine Glucose POC Glucose 196 H 190 H Lactic Acid Calcium Phosphorus Total Creatine Kinase Troponin T 0.214 H* Total Protein Albumin Cholesterol LDL Cholesterol Direct Ur Specific [place] Urine WBC (Auto) Urine Creatinine 03/20/19 03/21/19 03/21/19 23:14 03:29 04:07 WBC RBC Hgb Hct MCV MCH Plt Count Lymph % (Auto) Lymph # [place] # Seg Neutrophils % Seg Neuts % (Manual) Lymphocytes % (Manual) Monocytes % (Manual) Seg Neutrophils # Seg Neutrophils # Man Lymphocytes # (Manual) Monocytes # (Manual) Thrombin Time ABG pH 7.483 H ABG pO2 97.5 H ABG O2 Saturation ABG Base Excess ABG Hemoglobin 8.5 L Sodium 146 H Potassium 3.1 L D Chloride 109.8 H Carbon Dioxide BUN 35 H Creatinine 1.9 H Glucose 200 H POC Glucose 190 H Lactic Acid Calcium Phosphorus 1.80 L Total Creatine Kinase Troponin T Total Protein Albumin Cholesterol LDL Cholesterol Direct Ur Specific [place] Urine WBC (Auto) Urine Creatinine 03/21/19 03/21/19 03/21/19 05:22 11:52 18:06 WBC RBC Hgb Hct MCV MCH Plt Count Lymph % (Auto) Lymph # [place] # Seg Neutrophils % Seg Neuts % (Manual) Lymphocytes % (Manual) Monocytes % (Manual) Seg Neutrophils # Seg Neutrophils # Man Lymphocytes # (Manual) Monocytes # (Manual) Thrombin Time ABG pH ABG pO2 ABG O2 Saturation ABG Base Excess ABG Hemoglobin Sodium Potassium Chloride Carbon Dioxide BUN Creatinine Glucose POC Glucose 189 H 236 H 164 H Lactic Acid Calcium Phosphorus Total Creatine Kinase Troponin T Total Protein Albumin Cholesterol LDL Cholesterol Direct Ur Specific [place] Urine WBC (Auto) Urine Creatinine 01/03/22/19 03/22/19 23:36 04:47 04:47 WBC RBC 3.62 L Hgb 10.1 L Hct 29.9 L MCV 83 L MCH Plt Count Lymph % (Auto) Lymph # [place] # Seg Neutrophils % Seg Neuts % (Manual) 83.0 H Lymphocytes % (Manual) 8.0 L Monocytes % (Manual) 8.0 H Seg Neutrophils # Seg Neutrophils # Man 8.8 H Lymphocytes # (Manual) 0.8 L Monocytes # (Manual) Thrombin Time ABG pH ABG pO2 ABG O2 Saturation ABG Base Excess ABG Hemoglobin Sodium Potassium Chloride 107.8 H Carbon Dioxide 19 L BUN 28 H Creatinine 1.6 H Glucose 198 H POC Glucose 211 H Lactic Acid Calcium Phosphorus 2.40 L D Total Creatine Kinase Troponin T Total Protein Albumin Cholesterol LDL Cholesterol Direct Ur Specific [place] Urine WBC (Auto) Urine Creatinine 03/22/19 03/22/19 03/22/19 05:20 05:29 10:10 WBC RBC Hgb Hct MCV MCH Plt Count Lymph % (Auto) Lymph # [place] # Seg Neutrophils % Seg Neuts % (Manual) Lymphocytes % (Manual) Monocytes % (Manual) Seg Neutrophils # Seg Neutrophils # Man Lymphocytes # (Manual) Monocytes # (Manual) Thrombin Time ABG pH 7.481 H 7.483 H ABG pO2 74.6 L 79.4 L ABG O2 Saturation ABG Base Excess ABG Hemoglobin 9.7 L 9.2 L Sodium Potassium Chloride Carbon Dioxide BUN Creatinine Glucose POC Glucose 202 H Lactic Acid Calcium Phosphorus Total Creatine Kinase Troponin T Total Protein Albumin Cholesterol LDL Cholesterol Direct Ur Specific [place] Urine WBC (Auto) Urine Creatinine 03/22/19 03/22/19 03/22/19 12:29 17:34 23:16 WBC RBC Hgb Hct MCV MCH Plt Count Lymph % (Auto) Lymph # [place] # Seg Neutrophils % Seg Neuts % (Manual) Lymphocytes % (Manual) Monocytes % (Manual) Seg Neutrophils # Seg Neutrophils # Man Lymphocytes # (Manual) Monocytes # (Manual) Thrombin Time ABG pH ABG pO2 ABG O2 Saturation ABG Base Excess ABG Hemoglobin Sodium Potassium Chloride Carbon Dioxide BUN Creatinine Glucose POC Glucose 234 H 225 H 205 H Lactic Acid Calcium Phosphorus Total Creatine Kinase Troponin T Total Protein Albumin Cholesterol LDL Cholesterol Direct Ur Specific [place] Urine WBC (Auto) Urine Creatinine 03/23/19 03/23/19 03/23/19 03:27 03:50 04:17 WBC RBC Hgb Hct MCV MCH Plt Count Lymph % (Auto) Lymph # [place] # Seg Neutrophils % Seg Neuts % (Manual) Lymphocytes % (Manual) Monocytes % (Manual) Seg Neutrophils # Seg Neutrophils # Man Lymphocytes # (Manual) Monocytes # (Manual) Thrombin Time ABG pH 7.486 H ABG pO2 75.2 L ABG O2 Saturation ABG Base Excess ABG Hemoglobin 9.6 L Sodium Potassium Chloride Carbon Dioxide BUN Creatinine Glucose POC Glucose 113 H 173 H Lactic Acid Calcium Phosphorus Total Creatine Kinase Troponin T Total Protein Albumin Cholesterol LDL Cholesterol Direct Ur Specific [place] Urine WBC (Auto) Urine Creatinine 03/23/19 03/23/19 03/23/19 05:12 12:32 18:20 WBC RBC Hgb Hct MCV MCH Plt Count Lymph % (Auto) Lymph # [place] # Seg Neutrophils % Seg Neuts % (Manual) Lymphocytes % (Manual) Monocytes % (Manual) Seg Neutrophils # Seg Neutrophils # Man Lymphocytes # (Manual) Monocytes # (Manual) Thrombin Time ABG pH ABG pO2 ABG O2 Saturation ABG Base Excess ABG Hemoglobin Sodium Potassium Chloride 107.3 H Carbon Dioxide 21 L BUN 27 H Creatinine 1.6 H Glucose 166 H POC Glucose 212 H 190 H Lactic Acid Calcium Phosphorus Total Creatine Kinase Troponin T Total Protein Albumin Cholesterol LDL Cholesterol Direct Ur Specific [place] Urine WBC (Auto) Urine Creatinine 03/23/19 03/24/19 03/24/19 23:40 05:15 05:24 WBC RBC Hgb Hct MCV MCH Plt Count Lymph % (Auto) Lymph # [place] # Seg Neutrophils % Seg Neuts % (Manual) Lymphocytes % (Manual) Monocytes % (Manual) Seg Neutrophils # Seg Neutrophils # Man Lymphocytes # (Manual) Monocytes # (Manual) Thrombin Time ABG pH ABG pO2 ABG O2 Saturation ABG Base Excess ABG Hemoglobin Sodium Potassium Chloride Carbon Dioxide 21 L BUN 28 H Creatinine Glucose 139 H POC Glucose 172 H 128 H Lactic Acid Calcium Phosphorus Total Creatine Kinase Troponin T Total Protein Albumin Cholesterol LDL Cholesterol Direct Ur Specific [place] Urine WBC (Auto) Urine Creatinine Allied health notes reviewed: nursing
[2019-03-24] MEDS: cefTRIAXone/NS 1 GM/50 ML 1 GM/50 ML BAG IV SCH (10:29)
--- NOTE | 2019-03-24 13:21 | Progress Note ---
Assessment and Plan Cultures: 03/18/2019 blood culture: No growth 03/18/2019 urine culture: Staph aureus - MSSA (10K-100K) CSF culture: no growth thus far A/P: 68-year-old male with a past medical history of hypertension, diabetes, obesity admitted after being found down. #Sepsis with acute encephalopathy: Present with leukocytosis and tachycardia, improving. Possible meningitis v/s encephalitis v/s reactive from seizures. #?Meningoencephalitis: CSF with mild pleocytosis, not consistent with acute bacterial meningitis. 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 MRI brain without contrast was unremarkable for acute etiology. #CRISTÓBAL: renally dose antibiotics as appropriate, creatinine improving. #MSSA in urine: Not a common uropathogen. Blood cultures are negative, so bacteremic spillover/renal seeding less likely. TTE images of poor quality. Could also be a skin contaminant. Complete empiric course of abx. Recommendations: - continue Ceftriaxone 1 gm daily for total of 7 days - continue IV Acyclovir till HSV PCR results are back. Called and spoke to Crystal gonzalez in microbiology lab, it is in process at [facility], will hopefully get results soon. Brendon Conklin MD, FACP [facility] ([facility]) C: [phone] O: [phone] F: [phone] Subjective Date of service: 03/24/19 Principal diagnosis: Severe Sepsis; CRISTÓBAL; Ac hypoxemic resp failure; DM II; Seizures; AMS Interval history: No fever. Seems to open eyes. Remains on the vent. Objective - Exam Narrative Exam: Physical Exam: Constitutional: opens eyes at times, doesn't follow commands, intubated Head, Ears, Nose: Normocephalic, atraumatic. External ears, nose normal Eyes: Conjunctivae/corneas clear. No icterus. No ptosis. Neck: intubated Oral: intubated Cardiovascular: S1, S2 normal. Respiratory: Good air entry, clear to auscultation bilaterally GI: Soft, non-tender; bowel sounds normal. No peritoneal signs Musculoskeletal: No pedal edema, no cyanosis. Skin: No rash or abscess Hem/Lymphatic: No palpable cervical or supraclavicular nodes. No lymphangitis Psych: no agitation Neurological: opens eyes at times, doesn't follow commands, intubated, on vent - Constitutional Vitals: Vital Signs Temp Pulse Resp BP Pulse Ox 99.5 F 90 20 123/64 96 03/24/19 08:00 03/24/19 12:25 03/24/19 12:25 03/24/19 12:25 03/24/19 12:25 Temperature -Last 24 Hours Temperature 99.5 F Temperature 98.8 F Temperature 98.3 F Temperature 99.3 F Temperature 98.7 F - Labs CBC & Chem 7: 03/22/19 04:47 03/24/19 05:15 Labs: Abnormal lab results 03/23/19 03/23/19 03/24/19 Range/Units 18:20 23:40 05:15 Carbon Dioxide 21 L (22-30) mmol/L BUN 28 H (9-20) mg/dL Glucose 139 H (75-100) mg/dL POC Glucose 190 H 172 H (70-105) 03/24/19 03/24/19 Range/Units 05:24 12:21 Carbon Dioxide (22-30) mmol/L BUN (9-20) mg/dL Glucose (75-100) mg/dL POC Glucose 128 H 213 H (70-105) - Imaging and cardiology Chest x-ray: report reviewed, image reviewed (b/l atelectasis)
--- NOTE | 2019-03-24 15:17 | Progress Note ---
Assessment and Plan 1. Acute kidney injury: Vasomotor CRISTÓBAL in the setting of sepsis. Renal US negative for hydro. Renal function is improving. Continue IV fluids. Monitor renal function. Avoid nephrotoxic agents. Meds dosage based on GFR. 2. FEN: Anion gap metabolic acidosis, 2/2 Lactic acidosis, monitor. Hypernatremia, improved. Monitor lytes. 3. Sepsis. 4. Acute respiratory failure with hypoxia: Intubated on vent. 5. Seizures: Seen by Neuro. 6. DM type 2. 7. Encephalopathy: Multifactorial. Examination: General appearance: well-developed, appears stated age, intubated on vent HEENT: ATNC, DALIA Neck: trachea midline Respiratory: Clear to Ascultation Heart: regular, S1S2, no murmur Gastrointestinal: soft, normoactive bowel sounds, not tenderness, not distended Integumentary: no rash, warm and dry Neurologic: obtunded Musculoskeletal: no edema Subjective Date of service: 03/24/19 Principal diagnosis: Severe Sepsis; CRISTÓBAL; Ac hypoxemic resp failure; DM II; Seizures; AMS Interval history: Patient was seen and examined at the bedside. Remain in the ICU. Objective - Vital Signs Vital signs: Vital Signs - 12hr 03/24/19 03/24/19 03/24/19 03:20 03:30 04:00 Temperature 98.8 F Pulse Rate 90 94 H Pulse Rate [ 91 H From Monitor] Respiratory 17 18 Rate Blood Pressure 145/63 123/72 O2 Sat by Pulse 96 95 Oximetry 03/24/19 03/24/19 03/24/19 04:15 04:30 05:00 Temperature Pulse Rate 91 H 93 H 88 Pulse Rate [ From Monitor] Respiratory 19 16 Rate Blood Pressure 123/72 137/73 127/73 O2 Sat by Pulse 97 95 94 Oximetry 03/24/19 03/24/19 03/24/19 05:30 06:00 06:30 Temperature Pulse Rate 101 H 97 H 102 H Pulse Rate [ From Monitor] Respiratory 21 20 18 Rate Blood Pressure 127/73 121/63 140/66 O2 Sat by Pulse 98 95 96 Oximetry 03/24/19 03/24/19 03/24/19 07:00 07:30 08:00 Temperature 99.5 F Pulse Rate 94 H 91 H 97 H Pulse Rate [ 92 H From Monitor] Respiratory 18 20 20 Rate Blood Pressure 116/51 119/54 105/60 O2 Sat by Pulse 94 94 92 Oximetry 03/24/19 03/24/19 03/24/19 08:04 08:30 12:25 Temperature Pulse Rate 95 H 93 H 90 Pulse Rate [ From Monitor] Respiratory 16 20 Rate Blood Pressure 105/60 113/52 123/64 O2 Sat by Pulse 96 94 96 Oximetry - Lab 03/22/19 04:47 03/24/19 05:15 Most recent lab results ABG pH 7.486 pH Units (7.350-7.450) H 03/23/19 03:50 ABG pCO2 33.4 mm Hg 03/23/19 03:50 ABG pO2 75.2 mm Hg (80.0-90.0) L 03/23/19 03:50 ABG HCO3 24.7 mmol/L (20.0-26.0) 03/23/19 03:50 ABG O2 Saturation 97.0 % (95.0-99.0) 03/23/19 03:50 Calcium 8.5 mg/dL (8.4-10.2) 03/24/19 05:15 Phosphorus 3.00 mg/dL (2.5-4.5) D 03/23/19 05:12 Magnesium 1.90 mg/dL (1.7-2.3) 03/21/19 04:07 Urine Creatinine 142.9 mg/dL (0.1-20.0) H 03/19/19 01:38 Urine Sodium 14 mmol/L 03/19/19 01:38 Medications & Allergies - Medications Allergies/Adverse Reactions: Allergies No Known Allergies Allergy (Verified 01/21/16 10:17) Home Medications: Home Medications Medication Instructions Recorded Confirmed Last Taken Type Acetaminophen [Acetaminophen TAB] 2 tab PO Q4H PRN #15 tablet 02/10/19 03/19/19 Unknown Rx Aspirin 325 mg PO QDAY #30 tablet 02/10/19 03/19/19 Unknown Rx Magnesium Hydroxide [Milk of 30 ml PO Q4H PRN #15 oral.liqd 02/10/19 03/19/19 Unknown Rx Magnesia] OLANzapine [ZyPREXA] 2.5 mg PO QDAY #30 tablet 02/10/19 03/19/19 Unknown Rx Pantoprazole [Protonix TAB] 20 mg PO QDAY #30 tablet. 02/10/19 03/19/19 Unknown Rx Active Medications: Generic Name Dose Route Start Last Admin Trade Name Freq PRN Reason Stop Dose Admin Acetaminophen 650 mg 03/21/19 10:29 03/22/19 16:28 Tylenol PO 650 mg Q4H PRN Administration Pain MILD(1-3)/Fever >100.5/ROSA Lipase/Protease/Amylase 1 each 03/19/19 15:17 Pancreaze 10,500 Unit FEEDTUBE PRN PRN For Clogged Feeding Tube Clonidine HCl 0.2 mg 03/22/19 12:00 03/22/19 12:39 Catapres-Tts Patch TD 0.2 mg Raymond MARTHA Administration Dextrose 0 ml 03/20/19 02:38 D50w (25gm) Syringe IV Q30MIN PRN Hypoglycemia Protocol Famotidine 20 mg 03/23/19 10:00 03/24/19 09:03 Pepcid PO 20 mg BID MARTHA Administration Heparin Sodium (Porcine) 5,000 unit 03/18/19 22:00 03/24/19 09:03 Heparin SUB-Q 5,000 unit Q12HR MARTHA Administration Hydralazine HCl 10 mg 03/22/19 02:51 Apresoline IV Q4H PRN Hypertension Hydrophilic Ointment 1 applic 03/21/19 17:45 Vaseline Lip Therapy TP Q2HR PRN Dry Lips Sodium Chloride 1,000 mls @ 60 mls/hr 03/20/19 14:00 03/24/19 05:37 Nacl 0.45% 1000 Ml IV 60 mls/hr DIRECT MARTHA Administration Ceftriaxone Sodium 1 gm in 50 mls @ 100 mls/hr 03/23/19 10:00 03/24/19 11:00 Rocephin/Ns 1 Gm/50 Ml IV Infused Q24H MARTHA Infusion Protocol Acyclovir 430 mg/ Sodium 108.6 mls @ 100 mls/hr 03/22/19 12:00 03/24/19 13:05 Chloride IV Infused Q8H MARTHA Infusion Protocol Insulin Human Lispro 0 unit 03/20/19 06:00 03/24/19 12:00 Humalog SUB-Q 3 unit Q6HR MARTHA Administration Protocol Levetiracetam 750 mg 03/24/19 10:00 03/24/19 09:02 Keppra PO 750 mg BID MARTHA Administration Multi-Ingred Cream/Lotion/Oil/Oint 1 applic 03/21/19 17:45 Artificial Tears Ophth Oint OU Q4HR PRN Dry Eye(s) Simple Syrup 15 ml 03/19/19 15:17 Simple Syrup FEEDTUBE PRN PRN Hypoglycemia Simple Syrup 30 ml 03/19/19 15:17 Simple Syrup FEEDTUBE PRN PRN Hypoglycemia Sodium Bicarbonate 325 mg 03/19/19 15:17 Sodium Bicarbonate FEEDTUBE PRN PRN For Clogged Feeding Tube Sodium Chloride 10 ml 03/18/19 22:00 03/24/19 09:04 Sodium Chloride Flush Syringe 10 Ml IV 10 ml BID MARTHA Administration Sodium Chloride 10 ml 03/18/19 17:32 Sodium Chloride Flush Syringe 10 Ml IV PRN PRN LINE FLUSH
--- NOTE | 2019-03-24 16:59 | Progress Note ---
Assessment and Plan / Sepsis with possible meningitis cannot r/o meningitis as presented with seizure, encephalopathy and elevated white count Admited to ICU with Sepsis protocol: IV fluid resuscitation therapy, serial CBC, BMP, lactic acid level, IV abx, ordered Cx monitor urine output every shift, maintain mean arterial pressure greater than or equal to 60, IV pressor support as clinically indicated. negative blood cx report, URINE for MSSA - could be a skin contaminant ordered for LP - placed on Iv coverage for viral and bacterial meningitis, ID consulted s/p LP 03/20/19 - study result not convincing for bacterial meningitis - but viral meningoencephalitis still in differential as CSF has high RBC, cont acyclovir for now, HSV PCR pending /Acute encephalopathy likely from Sepsis vs CRISTÓBAL Vs underlying seizure monitor clinically. MRI brain w/o any acute change cont to treat underlying cause / CRISTÓBAL (acute kidney injury): likely vasomotor nephropathy - Cr improving cont IV fluid resuscitation therapy, monitor urine output every shift, strict I' s/O, Nephrology following /hypokalemia, repleted, follow BMP / metabolic Acidosis - due to sepsis vs CRISTÓBAL IV fluid resuscitation therapy, monitor urine output every shift, s/p IV bicarbonate therapy. / Acute respiratory failure with hypoxia Patient intubated and placed on ventilatory support, daily SBT, sedation holiday, pulmonary toilet, pulmonary team consulted in ED, wean vent as tolerated, cont nebs, / HLD (hyperlipidemia) TF diet for now, statin therapy as clinically indicated. / DM type 2 - SSI as needed /Acute onset seizure, started on keppra - EEG showed + for seizure, neurology following /DVT prophylaxis SCD to bilateral lower extremities while in bed, prophylactic heparin. The high probability of a clinically significant, sudden or life threatening deterioration of the [cardiac, pulmonary, renal, neurologic] system(s) required my full and direct attention, intervention and personal management. The aggregate critical care time was [35] minutes. This time is in addition to time spent performing reported procedures but includes the following: [x] Data Review and interpretation [x] Patient assessment and monitoring of vital signs [x] Documentation [x] Medication orders and management Disposition: not medically stable for d/c Subjective Date of service: 03/24/19 Principal diagnosis: Severe Sepsis; CRISTÓBAL; Ac hypoxemic resp failure; DM II; Seizures; AMS Interval history: Patient seen and examined Patient remained intubated, off sedation afebrile, white count trended down off sedation since 03/20 - patient remained unresponsive On CPAP on vent now discussed with family at bedside Objective - Exam Narrative Exam: General appearance: Present: other (intubated), NAD - EENT Eyes: no scleral icterus, no conjunctival injection ENT: clear oral mucosa Ears: bilateral: normal - Neck Neck: no rigidity, no enlarged thyroid - Respiratory Respiratory effort: other (on mechanical ventilation) Respiratory: bilateral: CTA - Cardiovascular Rhythm: regular Heart Sounds: Present: S1 & S2. Absent: gallop, rub Extremities: pulses intact, No edema, normal color - Gastrointestinal General gastrointestinal: Present: soft, non-tender, non-distended, normal bowel sounds - Integumentary Integumentary: clear, warm, dry - Musculoskeletal Musculoskeletal: other (intubated) - Neurologic Neurologic: other (unable to assess), moves extremities - does not follow commend, off sedation - Psychiatric Psychiatric: other (intubated) - Constitutional Vitals: Vital Signs - 12hr 03/24/19 03/24/19 03/24/19 05:00 05:30 06:00 Temperature Pulse Rate 88 101 H 97 H Pulse Rate [ From Monitor] Respiratory 16 21 20 Rate Blood Pressure 127/73 127/73 121/63 O2 Sat by Pulse 94 98 95 Oximetry 03/24/19 03/24/19 03/24/19 06:30 07:00 07:30 Temperature Pulse Rate 102 H 94 H 91 H Pulse Rate [ From Monitor] Respiratory 18 18 20 Rate Blood Pressure 140/66 116/51 119/54 O2 Sat by Pulse 96 94 94 Oximetry 03/24/19 03/24/19 03/24/19 08:00 08:04 08:30 Temperature 99.5 F Pulse Rate 97 H 95 H 93 H Pulse Rate [ 92 H From Monitor] Respiratory 20 16 Rate Blood Pressure 105/60 105/60 113/52 O2 Sat by Pulse 92 96 94 Oximetry 03/24/19 03/24/19 03/24/19 09:00 09:30 10:00 Temperature Pulse Rate 96 H 86 88 Pulse Rate [ From Monitor] Respiratory 16 12 14 Rate Blood Pressure 113/52 113/51 110/53 O2 Sat by Pulse 96 94 94 Oximetry 03/24/19 03/24/19 03/24/19 10:30 11:00 11:30 Temperature Pulse Rate 87 90 84 Pulse Rate [ From Monitor] Respiratory 14 16 15 Rate Blood Pressure 131/71 131/71 111/50 O2 Sat by Pulse 94 98 95 Oximetry 03/24/19 03/24/19 03/24/19 12:00 12:25 12:30 Temperature Pulse Rate 90 90 98 H Pulse Rate [ 91 H From Monitor] Respiratory 14 20 25 H Rate Blood Pressure 123/64 123/64 149/74 O2 Sat by Pulse 96 96 93 Oximetry 03/24/19 03/24/19 03/24/19 13:00 13:30 14:00 Temperature Pulse Rate 90 83 85 Pulse Rate [ From Monitor] Respiratory 15 15 14 Rate Blood Pressure 124/55 116/53 104/53 O2 Sat by Pulse 92 94 95 Oximetry 03/24/19 03/24/19 03/24/19 14:30 15:00 15:30 Temperature Pulse Rate 85 84 82 Pulse Rate [ From Monitor] Respiratory 17 19 14 Rate Blood Pressure 135/61 126/57 124/55 O2 Sat by Pulse 92 93 94 Oximetry 03/24/19 16:00 Temperature Pulse Rate 87 Pulse Rate [ From Monitor] Respiratory 19 Rate Blood Pressure 128/60 O2 Sat by Pulse 93 Oximetry - Labs CBC & Chem 7: 03/22/19 04:47 03/25/19 04:23 Labs: Abnormal lab results 03/23/19 03/23/19 03/24/19 Range/Units 18:20 23:40 05:15 Carbon Dioxide 21 L (22-30) mmol/L BUN 28 H (9-20) mg/dL Glucose 139 H (75-100) mg/dL POC Glucose 190 H 172 H (70-105) 03/24/19 03/24/19 Range/Units 05:24 12:21 Carbon Dioxide (22-30) mmol/L BUN (9-20) mg/dL Glucose (75-100) mg/dL POC Glucose 128 H 213 H (70-105)
[2019-03-25] MEDS: SODIUM CHLORIDE 0.9% IV SCH (04:00)
[2019-03-25] MEDS: ACYCLOVIR IV SCH (04:00)
[2019-03-25] MEDS: SODIUM CHLORIDE 0.45% 1000 ML 1,000 ML IV SCH (04:01)
[2019-03-25 04:10] LABS: ABG Base Excess 0.8 mmol/L (-2.0-3.0); ABG HCO3 24.4 mmol/L (20.0-26.0); ABG Methemoglobin 0.4 % (0.0-1.5); ABG Oxygen Saturation 97.1 % (95.0-99.0); ABG PCO2 34.2 mm Hg; ABG PH 7.47 pH Units (7.350-7.450); ABG PO2 73.5 mm Hg (80.0-90.0)
[2019-03-25 05:17] LABS: BUN/Creatinine Ratio 23; Blood Urea Nitrogen 28 mg/dL (9-20); Calcium 8.3 mg/dL (8.4-10.2); Hemolysis Index 87
[2019-03-25] MEDS: INSULIN LISPRO 100 UNIT/ML SUB-Q SCH ×3 (05:25→18:16)
[2019-03-25] MEDS: cefTRIAXone/NS 1 GM/50 ML 1 GM/50 ML BAG IV SCH (10:23)
[2019-03-25] MEDS: FAMOTIDINE 20 MG TAB PO SCH ×2 (10:23→21:13)
[2019-03-25] MEDS: HEPARIN 5,000 UNIT/1 ML VIAL SUB-Q SCH ×2 (10:23→21:13)
[2019-03-25] MEDS: levETIRAcetam 500 MG/5 ML ORAL LIQD PO SCH ×2 (10:23→21:13)
--- NOTE | 2019-03-25 12:51 | Progress Note ---
Assessment and Plan Cultures: 03/18/2019 blood culture: No growth 03/18/2019 urine culture: Staph aureus - MSSA (10K-100K) CSF culture: no growth thus far CSF HSV PCR: negative A/P: 68-year-old male with a past medical history of hypertension, diabetes, obesity admitted after being found down. #Sepsis with acute encephalopathy: Present with leukocytosis and tachycardia, improving. Possible meningitis v/s encephalitis v/s reactive from seizures. #?Meningoencephalitis: CSF with mild pleocytosis, not consistent with acute bacterial meningitis. 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 MRI brain without contrast was unremarkable for acute etiology. #CRISTÓBAL: renally dose antibiotics as appropriate, creatinine improving. #MSSA in urine: Not a common uropathogen. Blood cultures are negative, so bacteremic spillover/renal seeding less likely. TTE images of poor quality. Could also be a skin contaminant. Complete empiric course of abx. Recommendations: - completed Ceftriaxone, will d/c - HSV PCR on CSF is negative per discussion with micro. Acyclovir discontinued. d/w family members at bedside. CSF pleocytosis was probably post ictal. Brendon Conklin MD, FACP [facility] ([facility] C: [phone] O: [phone] F: [phone] Subjective Date of service: 03/25/19 Principal diagnosis: Severe Sepsis; CRISTÓBAL; Ac hypoxemic resp failure; DM II; Seizures; AMS Interval history: Afebrile. Opening eyes at times. Remains on the vent. Family members at bedside (sister and niece). Objective - Exam Narrative Exam: Physical Exam: Constitutional: comatose, doesn't follow commands, intubated Head, Ears, Nose: Normocephalic, atraumatic. External ears, nose normal Eyes: Conjunctivae/corneas clear. No icterus. No ptosis. Neck: intubated Oral: intubated Cardiovascular: S1, S2 normal. Respiratory: Good air entry, clear to auscultation bilaterally GI: Soft, non-tender; bowel sounds normal. No peritoneal signs Musculoskeletal: No pedal edema, no cyanosis. Skin: No rash or abscess Hem/Lymphatic: No palpable cervical or supraclavicular nodes. No lymphangitis Psych: no agitation Neurological: comatose, doesn't follow commands, intubated, on vent - Constitutional Vitals: Vital Signs Temp Pulse Resp BP Pulse Ox 97.9 F 87 16 117/60 98 03/25/19 08:00 03/25/19 12:00 03/25/19 12:00 03/25/19 12:00 03/25/19 12:00 Temperature -Last 24 Hours Temperature 97.9 F Temperature 99.1 F Temperature 99.5 F Temperature 99.2 F Temperature 99.1 F - Labs CBC & Chem 7: 03/22/19 04:47 03/25/19 04:23 Labs: Abnormal lab results 03/24/19 03/24/19 03/24/19 Range/Units 12:21 17:16 23:27 ABG pH (7.350-7.450) pH Units ABG pO2 (80.0-90.0) mm Hg ABG Hemoglobin (14.0-18.0) gm/dl Sodium (137-145) mmol/L Carbon Dioxide (22-30) mmol/L BUN (9-20) mg/dL Glucose (75-100) mg/dL POC Glucose 213 H 200 H 189 H (70-105) Calcium (8.4-10.2) mg/dL 03/25/19 03/25/19 03/25/19 Range/Units 01:57 04:23 05:24 ABG pH 7.470 H (7.350-7.450) pH Units ABG pO2 73.5 L (80.0-90.0) mm Hg ABG Hemoglobin 7.5 L (14.0-18.0) gm/dl Sodium 134 L (137-145) mmol/L Carbon Dioxide 21 L (22-30) mmol/L BUN 28 H (9-20) mg/dL Glucose 179 H (75-100) mg/dL POC Glucose 198 H (70-105) Calcium 8.3 L (8.4-10.2) mg/dL 03/25/19 Range/Units 12:23 ABG pH (7.350-7.450) pH Units ABG pO2 (80.0-90.0) mm Hg ABG Hemoglobin (14.0-18.0) gm/dl Sodium (137-145) mmol/L Carbon Dioxide (22-30) mmol/L BUN (9-20) mg/dL Glucose (75-100) mg/dL POC Glucose 184 H (70-105) Calcium (8.4-10.2) mg/dL
--- NOTE | 2019-03-25 12:57 | Progress Note ---
Assessment and Plan Acute respiratory failure with hypoxia Acute encephalopathy (Toxic/Metabolic) Severe Sepsis, fevers with seizures CRISTÓBAL- probably vasomotor nephropathy, resolved Acidosis HLD (hyperlipidemia) DM type 2 Acute onset seizure Leukocytosis (resolved) - VAP bundle addressed -Aspiration precautions, HOB >40 -Empiric antibiotic and antiviral broad spectrum coverage- competes Ceftriaxone today, on day 7 of Acyclovir While on Acyclovir continue with IV hydration as a renal protective measure -No sedation at this time to allow for ongoing evaluation of mental status - Bronchodilators with pulmonary hygiene per RT -Continue daily SBT assessment - tolerating PSV and is comfortable. Mental status limits and precludes liberation from MVS at this time -Wean supplemental oxygen for target O2 sat's > 90% - Continue lung protective strategies - Enteric nutrition, glycemic control - Accuchecks with glycemic control per SSI (While critically ill target blood glucose of 140-180 mg/dL; avoid hypoglycemia) - prn analgesia per CPOT score - Maintenance of sleep-wake cycle, avoid delirium - G.I. & VTE prophylaxis ( Heparin, Famotidine) - PT/OT/ROM exercises - continue mobility protocols for pressure ulcer prevention - Monitor hemodynamics closely -Continue chronic home medications as indicated - continue other care per attending / other marketing consultant's Discussed extensively with ICU team during IDT rounds Place PT/OT consult CONDITION: CRITICAL PROGNOSIS: GUARDED CODE STATUS: FULL CODE The high probability of a clinically significant, sudden or life-threatening deterioration of the [respiratory, cardiovascular & neurologic] system(s) required my full and direct attention, intervention and personal management. The aggregate critical care time was [35] minutes without overlap. Time includes spent on; [x] Data Review and interpretation [x] Patient assessment and monitoring of vital signs [x] Documentation [x] Medication orders and management Subjective Date of service: 03/25/19 Principal diagnosis: Severe Sepsis; CRISTÓBAL; Ac hypoxemic resp failure; DM II; Seizures; AMS Interval history: Patient is seen today for: acute hypoxic respiratory failure: sepsis: seizures and acute metabolic encephalopathy: CRISTÓBAL Seen and examined at bedside; 24hour events reviewed; nursing and respiratory care staff consulted; no adverse overnight events reported to me; No fevers, no diarrhea, no vomiting; remains orally intubated on MVS; no fevers; mental status changes persist however is opening eyes to verbal and tactile stimuli; not on any sedation,no drips. Objective Vital Signs - 12hr 03/25/19 03/25/19 03/25/19 01:00 01:30 02:00 Temperature Pulse Rate 94 H 91 H 88 Pulse Rate [ From Monitor] Respiratory 21 22 19 Rate Blood Pressure 115/58 122/57 103/52 O2 Sat by Pulse 91 92 92 Oximetry 03/25/19 03/25/19 03/25/19 02:30 03:00 03:30 Temperature Pulse Rate 89 91 H 87 Pulse Rate [ From Monitor] Respiratory 19 20 18 Rate Blood Pressure 103/52 103/52 119/49 O2 Sat by Pulse 95 96 92 Oximetry 03/25/19 03/25/19 03/25/19 04:00 04:30 04:42 Temperature 99.1 F Pulse Rate 89 91 H 92 H Pulse Rate [ 89 From Monitor] Respiratory 21 23 Rate Blood Pressure 120/61 123/60 123/60 O2 Sat by Pulse 90 93 95 Oximetry 03/25/19 03/25/19 03/25/19 05:00 05:30 06:00 Temperature Pulse Rate 96 H 90 89 Pulse Rate [ From Monitor] Respiratory 19 23 21 Rate Blood Pressure 118/59 126/66 120/56 O2 Sat by Pulse 94 94 93 Oximetry 03/25/19 03/25/19 03/25/19 06:30 07:00 07:30 Temperature Pulse Rate 91 H 86 86 Pulse Rate [ From Monitor] Respiratory 21 17 19 Rate Blood Pressure 138/59 108/51 134/58 O2 Sat by Pulse 95 95 94 Oximetry 03/25/19 03/25/19 03/25/19 08:00 08:13 08:20 Temperature 97.9 F Pulse Rate 82 90 86 Pulse Rate [ 82 From Monitor] Respiratory 18 Rate Blood Pressure 115/53 115/53 O2 Sat by Pulse 95 97 Oximetry 03/25/19 03/25/19 03/25/19 08:30 09:00 09:30 Temperature Pulse Rate 90 85 87 Pulse Rate [ From Monitor] Respiratory 19 15 16 Rate Blood Pressure 115/53 122/56 122/60 O2 Sat by Pulse 97 97 94 Oximetry 03/25/19 03/25/19 03/25/19 10:00 10:30 11:00 Temperature Pulse Rate 82 88 95 H Pulse Rate [ From Monitor] Respiratory 15 20 20 Rate Blood Pressure 119/53 140/65 140/65 O2 Sat by Pulse 97 97 99 Oximetry 03/25/19 03/25/19 03/25/19 11:30 12:00 12:54 Temperature Pulse Rate 82 87 83 Pulse Rate [ From Monitor] Respiratory 15 16 15 Rate Blood Pressure 119/57 117/60 112/48 O2 Sat by Pulse 97 98 100 Oximetry Constitutional: no acute distress, other (elderly looking CM nornocephalic riding set rate on MVS) Eyes: non-icteric ENT: oropharynx moist, other (ETT 23 cm MARILYN) Neck: supple, no lymphadenopathy, no JVD Effort: normal Ascultation: Bilateral: diminished breath sounds, rhonchi Percussion: Bilateral: not dull Cardiovascular: regular rate and rhythm, other (S1,S2) Gastrointestinal: normoactive bowel sounds, soft, non-tender, non-distended Integumentary: normal Extremities: no cyanosis, no edema, pink and warm, pulses normal, no ischemia or petechiae Neurologic: pupils equal and round, unable to assess, other (spontaneous eye opening to tactile and verbal stimuli) Psychiatric: other (unable to assess re: AMS) CBC and BMP: 03/22/19 04:47 03/25/19 04:23 ABG, PT/INR, D-dimer: ABG ABG pH 7.470 pH Units (7.350-7.450) H 03/25/19 01:57 ABG pCO2 34.2 mm Hg 03/25/19 01:57 ABG pO2 73.5 mm Hg (80.0-90.0) L 03/25/19 01:57 ABG O2 Saturation 97.1 % (95.0-99.0) 03/25/19 01:57 PT/INR, D-dimer PT 14.4 Sec. (12.2-14.9) 03/18/19 14:17 INR 1.11 (0.87-1.13) 03/18/19 14:17 Abnormal lab findings: Abnormal Labs 03/18/19 03/18/19 03/18/19 14:17 14:17 14:17 WBC 38.1 H RBC Hgb Hct MCV 83 L MCH 27 L Plt Count 740 H Lymph % (Auto) Lymph # [place] # Seg Neutrophils % Seg Neuts % (Manual) 93.0 H Lymphocytes % (Manual) 2.5 L Monocytes % (Manual) Seg Neutrophils # Seg Neutrophils # Man 35.4 H Lymphocytes # (Manual) 1.0 L Monocytes # (Manual) 1.5 H Thrombin Time 14.7 L ABG pH ABG pO2 ABG O2 Saturation ABG Base Excess ABG Hemoglobin Sodium Potassium Chloride 94.9 L Carbon Dioxide 20 L BUN 34 H Creatinine 2.7 H Glucose 244 H POC Glucose Lactic Acid Calcium 10.6 H Phosphorus Total Creatine Kinase Troponin T 0.297 H* Total Protein Albumin Cholesterol 264 H LDL Cholesterol Direct 182 H Ur Specific [place] Urine WBC (Auto) Urine Creatinine 03/18/19 03/18/19 03/18/19 15:33 15:33 17:55 WBC RBC Hgb Hct MCV MCH Plt Count Lymph % (Auto) Lymph # [place] # Seg Neutrophils % Seg Neuts % (Manual) Lymphocytes % (Manual) Monocytes % (Manual) Seg Neutrophils # Seg Neutrophils # Man Lymphocytes # (Manual) Monocytes # (Manual) Thrombin Time ABG pH ABG pO2 ABG O2 Saturation ABG Base Excess ABG Hemoglobin Sodium Potassium Chloride Carbon Dioxide BUN Creatinine Glucose POC Glucose Lactic Acid 2.70 H* 3.00 H* Calcium Phosphorus Total Creatine Kinase 2896 H Troponin T Total Protein Albumin Cholesterol LDL Cholesterol Direct Ur Specific [place] Urine WBC (Auto) Urine Creatinine 03/18/19 03/18/19 03/18/19 20:22 Unknown Unknown WBC RBC Hgb Hct MCV MCH Plt Count Lymph % (Auto) Lymph # [place] # Seg Neutrophils % Seg Neuts % (Manual) Lymphocytes % (Manual) Monocytes % (Manual) Seg Neutrophils # Seg Neutrophils # Man Lymphocytes # (Manual) Monocytes # (Manual) Thrombin Time ABG pH ABG pO2 183.5 H ABG O2 Saturation 99.2 H ABG Base Excess ABG Hemoglobin 12.7 L Sodium Potassium Chloride Carbon Dioxide BUN Creatinine Glucose POC Glucose Lactic Acid 3.00 H* Calcium Phosphorus Total Creatine Kinase Troponin T Total Protein Albumin Cholesterol LDL Cholesterol Direct Ur Specific [place] 1.046 H Urine WBC (Auto) 23.0 H Urine Creatinine 03/19/19 03/19/19 03/19/19 01:38 02:56 02:56 WBC 25.4 H RBC Hgb 11.3 L Hct 34.1 L D MCV 83 L MCH 27 L Plt Count 496 H Lymph % (Auto) Lymph # [place] # Seg Neutrophils % Seg Neuts % (Manual) 90.0 H Lymphocytes % (Manual) 3.0 L Monocytes % (Manual) Seg Neutrophils # Seg Neutrophils # Man 22.9 H Lymphocytes # (Manual) 0.8 L Monocytes # (Manual) 1.8 H Thrombin Time ABG pH ABG pO2 ABG O2 Saturation ABG Base Excess ABG Hemoglobin Sodium Potassium Chloride Carbon Dioxide 20 L BUN 34 H Creatinine 2.5 H Glucose 208 H POC Glucose Lactic Acid Calcium Phosphorus Total Creatine Kinase Troponin T Total Protein 5.9 L Albumin 2.9 L Cholesterol LDL Cholesterol Direct Ur Specific [place] Urine WBC (Auto) Urine Creatinine 142.9 H 03/19/19 03/19/19 03/19/19 05:12 14:39 23:08 WBC RBC Hgb Hct MCV MCH Plt Count Lymph % (Auto) Lymph # [place] # Seg Neutrophils % Seg Neuts % (Manual) Lymphocytes % (Manual) Monocytes % (Manual) Seg Neutrophils # Seg Neutrophils # Man Lymphocytes # (Manual) Monocytes # (Manual) Thrombin Time ABG pH ABG pO2 201.8 H ABG O2 Saturation 99.3 H ABG Base Excess -2.8 L ABG Hemoglobin Sodium Potassium Chloride Carbon Dioxide BUN Creatinine Glucose POC Glucose 185 H Lactic Acid Calcium Phosphorus Total Creatine Kinase Troponin T 0.200 H* D Total Protein Albumin Cholesterol LDL Cholesterol Direct Ur Specific [place] Urine WBC (Auto) Urine Creatinine 03/20/19 03/20/19 03/20/19 00:12 03:44 05:19 WBC RBC Hgb Hct MCV MCH Plt Count Lymph % (Auto) Lymph # [place] # Seg Neutrophils % Seg Neuts % (Manual) Lymphocytes % (Manual) Monocytes % (Manual) Seg Neutrophils # Seg Neutrophils # Man Lymphocytes # (Manual) Monocytes # (Manual) Thrombin Time ABG pH ABG pO2 122.8 H ABG O2 Saturation ABG Base Excess -3.0 L ABG Hemoglobin 8.9 L Sodium Potassium Chloride Carbon Dioxide BUN Creatinine Glucose POC Glucose 193 H 202 H Lactic Acid Calcium Phosphorus Total Creatine Kinase Troponin T Total Protein Albumin Cholesterol LDL Cholesterol Direct Ur Specific [place] Urine WBC (Auto) Urine Creatinine 03/20/19 03/20/19 03/20/19 05:26 05:26 05:26 WBC 19.5 H RBC Hgb 10.8 L Hct 33.0 L MCV 82 L MCH 27 L Plt Count Lymph % (Auto) 5.4 L Lymph # 1.1 L [place] # 1.4 H Seg Neutrophils % 86.8 H Seg Neuts % (Manual) Lymphocytes % (Manual) Monocytes % (Manual) Seg Neutrophils # 16.9 H Seg Neutrophils # Man Lymphocytes # (Manual) Monocytes # (Manual) Thrombin Time ABG pH ABG pO2 ABG O2 Saturation ABG Base Excess ABG Hemoglobin Sodium Potassium Chloride 110.5 H Carbon Dioxide 17 L BUN 41 H Creatinine 2.6 H Glucose 199 H POC Glucose Lactic Acid Calcium Phosphorus Total Creatine Kinase 396 H Troponin T 0.191 H* Total Protein Albumin Cholesterol LDL Cholesterol Direct Ur Specific [place] Urine WBC (Auto) Urine Creatinine 03/20/19 03/20/19 03/20/19 11:33 15:23 18:28 WBC RBC Hgb Hct MCV MCH Plt Count Lymph % (Auto) Lymph # [place] # Seg Neutrophils % Seg Neuts % (Manual) Lymphocytes % (Manual) Monocytes % (Manual) Seg Neutrophils # Seg Neutrophils # Man Lymphocytes # (Manual) Monocytes # (Manual) Thrombin Time ABG pH ABG pO2 ABG O2 Saturation ABG Base Excess ABG Hemoglobin Sodium Potassium Chloride Carbon Dioxide BUN Creatinine Glucose POC Glucose 196 H 190 H Lactic Acid Calcium Phosphorus Total Creatine Kinase Troponin T 0.214 H* Total Protein Albumin Cholesterol LDL Cholesterol Direct Ur Specific [place] Urine WBC (Auto) Urine Creatinine 03/20/19 03/21/19 03/21/19 23:14 03:29 04:07 WBC RBC Hgb Hct MCV MCH Plt Count Lymph % (Auto) Lymph # [place] # Seg Neutrophils % Seg Neuts % (Manual) Lymphocytes % (Manual) Monocytes % (Manual) Seg Neutrophils # Seg Neutrophils # Man Lymphocytes # (Manual) Monocytes # (Manual) Thrombin Time ABG pH 7.483 H ABG pO2 97.5 H ABG O2 Saturation ABG Base Excess ABG Hemoglobin 8.5 L Sodium 146 H Potassium 3.1 L D Chloride 109.8 H Carbon Dioxide BUN 35 H Creatinine 1.9 H Glucose 200 H POC Glucose 190 H Lactic Acid Calcium Phosphorus 1.80 L Total Creatine Kinase Troponin T Total Protein Albumin Cholesterol LDL Cholesterol Direct Ur Specific [place] Urine WBC (Auto) Urine Creatinine 03/21/19 03/21/19 03/21/19 05:22 11:52 18:06 WBC RBC Hgb Hct MCV MCH Plt Count Lymph % (Auto) Lymph # [place] # Seg Neutrophils % Seg Neuts % (Manual) Lymphocytes % (Manual) Monocytes % (Manual) Seg Neutrophils # Seg Neutrophils # Man Lymphocytes # (Manual) Monocytes # (Manual) Thrombin Time ABG pH ABG pO2 ABG O2 Saturation ABG Base Excess ABG Hemoglobin Sodium Potassium Chloride Carbon Dioxide BUN Creatinine Glucose POC Glucose 189 H 236 H 164 H Lactic Acid Calcium Phosphorus Total Creatine Kinase Troponin T Total Protein Albumin Cholesterol LDL Cholesterol Direct Ur Specific [place] Urine WBC (Auto) Urine Creatinine 03/21/19 03/22/19 03/22/19 23:36 04:47 04:47 WBC RBC 3.62 L Hgb 10.1 L Hct 29.9 L MCV 83 L MCH Plt Count Lymph % (Auto) Lymph # [place] # Seg Neutrophils % Seg Neuts % (Manual) 83.0 H Lymphocytes % (Manual) 8.0 L Monocytes % (Manual) 8.0 H Seg Neutrophils # Seg Neutrophils # Man 8.8 H Lymphocytes # (Manual) 0.8 L Monocytes # (Manual) Thrombin Time ABG pH ABG pO2 ABG O2 Saturation ABG Base Excess ABG Hemoglobin Sodium Potassium Chloride 107.8 H Carbon Dioxide 19 L BUN 28 H Creatinine 1.6 H Glucose 198 H POC Glucose 211 H Lactic Acid Calcium Phosphorus 2.40 L D Total Creatine Kinase Troponin T Total Protein Albumin Cholesterol LDL Cholesterol Direct Ur Specific [place] Urine WBC (Auto) Urine Creatinine 03/22/19 03/22/19 03/22/19 05:20 05:29 10:10 WBC RBC Hgb Hct MCV MCH Plt Count Lymph % (Auto) Lymph # [place] # Seg Neutrophils % Seg Neuts % (Manual) Lymphocytes % (Manual) Monocytes % (Manual) Seg Neutrophils # Seg Neutrophils # Man Lymphocytes # (Manual) Monocytes # (Manual) Thrombin Time ABG pH 7.481 H 7.483 H ABG pO2 74.6 L 79.4 L ABG O2 Saturation ABG Base Excess ABG Hemoglobin 9.7 L 9.2 L Sodium Potassium Chloride Carbon Dioxide BUN Creatinine Glucose POC Glucose 202 H Lactic Acid Calcium Phosphorus Total Creatine Kinase Troponin T Total Protein Albumin Cholesterol LDL Cholesterol Direct Ur Specific [place] Urine WBC (Auto) Urine Creatinine 03/22/19 03/22/19 03/22/19 12:29 17:34 23:16 WBC RBC Hgb Hct MCV MCH Plt Count Lymph % (Auto) Lymph # [place] # Seg Neutrophils % Seg Neuts % (Manual) Lymphocytes % (Manual) Monocytes % (Manual) Seg Neutrophils # Seg Neutrophils # Man Lymphocytes # (Manual) Monocytes # (Manual) Thrombin Time ABG pH ABG pO2 ABG O2 Saturation ABG Base Excess ABG Hemoglobin Sodium Potassium Chloride Carbon Dioxide BUN Creatinine Glucose POC Glucose 234 H 225 H 205 H Lactic Acid Calcium Phosphorus Total Creatine Kinase Troponin T Total Protein Albumin Cholesterol LDL Cholesterol Direct Ur Specific [place] Urine WBC (Auto) Urine Creatinine 03/23/19 03/23/19 03/23/19 03:27 03:50 04:17 WBC RBC Hgb Hct MCV MCH Plt Count Lymph % (Auto) Lymph # [place] # Seg Neutrophils % Seg Neuts % (Manual) Lymphocytes % (Manual) Monocytes % (Manual) Seg Neutrophils # Seg Neutrophils # Man Lymphocytes # (Manual) Monocytes # (Manual) Thrombin Time ABG pH 7.486 H ABG pO2 75.2 L ABG O2 Saturation ABG Base Excess ABG Hemoglobin 9.6 L Sodium Potassium Chloride Carbon Dioxide BUN Creatinine Glucose POC Glucose 113 H 173 H Lactic Acid Calcium Phosphorus Total Creatine Kinase Troponin T Total Protein Albumin Cholesterol LDL Cholesterol Direct Ur Specific [place] Urine WBC (Auto) Urine Creatinine 03/23/19 03/23/19 03/23/19 05:12 12:32 18:20 WBC RBC Hgb Hct MCV MCH Plt Count Lymph % (Auto) Lymph # [place] # Seg Neutrophils % Seg Neuts % (Manual) Lymphocytes % (Manual) Monocytes % (Manual) Seg Neutrophils # Seg Neutrophils # Man Lymphocytes # (Manual) Monocytes # (Manual) Thrombin Time ABG pH ABG pO2 ABG O2 Saturation ABG Base Excess ABG Hemoglobin Sodium Potassium Chloride 107.3 H Carbon Dioxide 21 L BUN 27 H Creatinine 1.6 H Glucose 166 H POC Glucose 212 H 190 H Lactic Acid Calcium Phosphorus Total Creatine Kinase Troponin T Total Protein Albumin Cholesterol LDL Cholesterol Direct Ur Specific [place] Urine WBC (Auto) Urine Creatinine 03/23/19 03/24/19 03/24/19 23:40 05:15 05:24 WBC RBC Hgb Hct MCV MCH Plt Count Lymph % (Auto) Lymph # [place] # Seg Neutrophils % Seg Neuts % (Manual) Lymphocytes % (Manual) Monocytes % (Manual) Seg Neutrophils # Seg Neutrophils # Man Lymphocytes # (Manual) Monocytes # (Manual) Thrombin Time ABG pH ABG pO2 ABG O2 Saturation ABG Base Excess ABG Hemoglobin Sodium Potassium Chloride Carbon Dioxide 21 L BUN 28 H Creatinine Glucose 139 H POC Glucose 172 H 128 H Lactic Acid Calcium Phosphorus Total Creatine Kinase Troponin T Total Protein Albumin Cholesterol LDL Cholesterol Direct Ur Specific [place] Urine WBC (Auto) Urine Creatinine 03/24/19 03/24/19 03/24/19 12:21 17:16 23:27 WBC RBC Hgb Hct MCV MCH Plt Count Lymph % (Auto) Lymph # [place] # Seg Neutrophils % Seg Neuts % (Manual) Lymphocytes % (Manual) Monocytes % (Manual) Seg Neutrophils # Seg Neutrophils # Man Lymphocytes # (Manual) Monocytes # (Manual) Thrombin Time ABG pH ABG pO2 ABG O2 Saturation ABG Base Excess ABG Hemoglobin Sodium Potassium Chloride Carbon Dioxide BUN Creatinine Glucose POC Glucose 213 H 200 H 189 H Lactic Acid Calcium Phosphorus Total Creatine Kinase Troponin T Total Protein Albumin Cholesterol LDL Cholesterol Direct Ur Specific [place] Urine WBC (Auto) Urine Creatinine 03/25/19 03/25/19 03/25/19 01:57 04:23 05:24 WBC RBC Hgb Hct MCV MCH Plt Count Lymph % (Auto) Lymph # [place] # Seg Neutrophils % Seg Neuts % (Manual) Lymphocytes % (Manual) Monocytes % (Manual) Seg Neutrophils # Seg Neutrophils # Man Lymphocytes # (Manual) Monocytes # (Manual) Thrombin Time ABG pH 7.470 H ABG pO2 73.5 L ABG O2 Saturation ABG Base Excess ABG Hemoglobin 7.5 L Sodium 134 L Potassium Chloride Carbon Dioxide 21 L BUN 28 H Creatinine Glucose 179 H POC Glucose 198 H Lactic Acid Calcium 8.3 L Phosphorus Total Creatine Kinase Troponin T Total Protein Albumin Cholesterol LDL Cholesterol Direct Ur Specific [place] Urine WBC (Auto) Urine Creatinine 03/25/19 12:23 WBC RBC Hgb Hct MCV MCH Plt Count Lymph % (Auto) Lymph # [place] # Seg Neutrophils % Seg Neuts % (Manual) Lymphocytes % (Manual) Monocytes % (Manual) Seg Neutrophils # Seg Neutrophils # Man Lymphocytes # (Manual) Monocytes # (Manual) Thrombin Time ABG pH ABG pO2 ABG O2 Saturation ABG Base Excess ABG Hemoglobin Sodium Potassium Chloride Carbon Dioxide BUN Creatinine Glucose POC Glucose 184 H Lactic Acid Calcium Phosphorus Total Creatine Kinase Troponin T Total Protein Albumin Cholesterol LDL Cholesterol Direct Ur Specific [place] Urine WBC (Auto) Urine Creatinine Chest x-ray: image reviewed Allied health notes reviewed: RT
--- NOTE | 2019-03-25 14:14 | Progress Note ---
Assessment and Plan 1. Acute kidney injury: Vasomotor CRISTÓBAL in the setting of sepsis. Renal US negative for hydro. Renal function is improving. Continue IV fluids. Monitor renal function. Avoid nephrotoxic agents. Meds dosage based on GFR. 2. FEN: Anion gap metabolic acidosis, 2/2 Lactic acidosis, monitor. Hypernatremia, improved. Monitor lytes. 3. Sepsis. 4. Acute respiratory failure with hypoxia: Intubated on vent. 5. Seizures: Seen by Neuro. 6. DM type 2. 7. Encephalopathy: Multifactorial. Examination: General appearance: well-developed, appears stated age, intubated on vent HEENT: ATNC, DALIA Neck: trachea midline Respiratory: Clear to Ascultation Heart: regular, S1S2, no murmur Gastrointestinal: soft, normoactive bowel sounds, not tenderness, not distended Integumentary: no rash, warm and dry Neurologic: some movement with pain stimuli Musculoskeletal: no edema Subjective Date of service: 03/25/19 Principal diagnosis: Severe Sepsis; CRISTÓBAL; Ac hypoxemic resp failure; DM II; Seizures; AMS Interval history: Patient was seen and examined at the bedside. Sister and niece present. No acute events overnight. Objective - Vital Signs Vital signs: Vital Signs - 12hr 03/25/19 03/25/19 03/25/19 02:30 03:00 03:30 Temperature Pulse Rate 89 91 H 87 Pulse Rate [ From Monitor] Respiratory 19 20 18 Rate Blood Pressure 103/52 103/52 119/49 O2 Sat by Pulse 95 96 92 Oximetry 03/25/19 03/25/19 03/25/19 04:00 04:30 04:42 Temperature 99.1 F Pulse Rate 89 91 H 92 H Pulse Rate [ 89 From Monitor] Respiratory 21 23 Rate Blood Pressure 120/61 123/60 123/60 O2 Sat by Pulse 90 93 95 Oximetry 03/25/19 03/25/19 03/25/19 05:00 05:30 06:00 Temperature Pulse Rate 96 H 90 89 Pulse Rate [ From Monitor] Respiratory 19 23 21 Rate Blood Pressure 118/59 126/66 120/56 O2 Sat by Pulse 94 94 93 Oximetry 03/25/19 03/25/19 03/25/19 06:30 07:00 07:30 Temperature Pulse Rate 91 H 86 86 Pulse Rate [ From Monitor] Respiratory 21 17 19 Rate Blood Pressure 138/59 108/51 134/58 O2 Sat by Pulse 95 95 94 Oximetry 03/25/19 03/25/19 03/25/19 08:00 08:13 08:20 Temperature 97.9 F Pulse Rate 82 90 86 Pulse Rate [ 82 From Monitor] Respiratory 18 Rate Blood Pressure 115/53 115/53 O2 Sat by Pulse 95 97 Oximetry 03/25/19 03/25/19 03/25/19 08:30 09:00 09:30 Temperature Pulse Rate 90 85 87 Pulse Rate [ From Monitor] Respiratory 19 15 16 Rate Blood Pressure 115/53 122/56 122/60 O2 Sat by Pulse 97 97 94 Oximetry 03/25/19 03/25/19 03/25/19 10:00 10:30 11:00 Temperature Pulse Rate 82 88 95 H Pulse Rate [ From Monitor] Respiratory 15 20 20 Rate Blood Pressure 119/53 140/65 140/65 O2 Sat by Pulse 97 97 99 Oximetry 03/25/19 03/25/19 03/25/19 11:30 12:00 12:54 Temperature Pulse Rate 82 87 83 Pulse Rate [ From Monitor] Respiratory 15 16 15 Rate Blood Pressure 119/57 117/60 112/48 O2 Sat by Pulse 97 98 100 Oximetry - Lab 03/22/19 04:47 03/25/19 04:23 Most recent lab results ABG pH 7.470 pH Units (7.350-7.450) H 03/25/19 01:57 ABG pCO2 34.2 mm Hg 03/25/19 01:57 ABG pO2 73.5 mm Hg (80.0-90.0) L 03/25/19 01:57 ABG HCO3 24.4 mmol/L (20.0-26.0) 03/25/19 01:57 ABG O2 Saturation 97.1 % (95.0-99.0) 03/25/19 01:57 Calcium 8.3 mg/dL (8.4-10.2) L 03/25/19 04:23 Phosphorus 3.10 mg/dL (2.5-4.5) 03/25/19 04:23 Magnesium 1.90 mg/dL (1.7-2.3) 03/21/19 04:07 Urine Creatinine 142.9 mg/dL (0.1-20.0) H 01/23/20 01:38 Urine Sodium 14 mmol/L 03/19/19 01:38 Medications & Allergies - Medications Allergies/Adverse Reactions: Allergies No Known Allergies Allergy (Verified 01/21/16 10:17) Home Medications: Home Medications Medication Instructions Recorded Confirmed Last Taken Type Acetaminophen [Acetaminophen TAB] 2 tab PO Q4H PRN #15 tablet 02/10/19 03/19/19 Unknown Rx Aspirin 325 mg PO QDAY #30 tablet 02/10/19 03/19/19 Unknown Rx Magnesium Hydroxide [Milk of 30 ml PO Q4H PRN #15 oral.liqd 02/10/19 03/19/19 Unknown Rx Magnesia] OLANzapine [ZyPREXA] 2.5 mg PO QDAY #30 tablet 02/10/19 03/19/19 Unknown Rx Pantoprazole [Protonix TAB] 20 mg PO QDAY #30 tablet. 02/10/19 03/19/19 Unknown Rx Active Medications: Generic Name Dose Route Start Last Admin Trade Name Freq PRN Reason Stop Dose Admin Acetaminophen 650 mg 03/21/19 10:29 03/22/19 16:28 Tylenol PO 650 mg Q4H PRN Administration Pain MILD(1-3)/Fever >100.5/ROSA Lipase/Protease/Amylase 1 each 03/19/19 15:17 Pancreaze 10,500 Unit FEEDTUBE PRN PRN For Clogged Feeding Tube Clonidine HCl 0.2 mg 03/22/19 12:00 03/22/19 12:39 Catapres-Tts Patch TD 0.2 mg Raymond MARTHA Administration Dextrose 0 ml 03/20/19 02:38 D50w (25gm) Syringe IV Q30MIN PRN Hypoglycemia Protocol Famotidine 20 mg 03/23/19 10:00 03/25/19 10:23 Pepcid PO 20 mg BID MARTHA Administration Heparin Sodium (Porcine) 5,000 unit 03/18/19 22:00 03/25/19 10:23 Heparin SUB-Q 5,000 unit Q12HR MARTHA Administration Hydralazine HCl 10 mg 03/22/19 02:51 Apresoline IV Q4H PRN Hypertension Hydrophilic Ointment 1 applic 03/21/19 17:45 Vaseline Lip Therapy TP Q2HR PRN Dry Lips Insulin Human Lispro 0 unit 03/20/19 06:00 03/25/19 12:22 Humalog SUB-Q 2 unit Q6HR MARTHA Administration Protocol Levetiracetam 750 mg 03/24/19 10:00 03/25/19 10:23 Keppra PO 750 mg BID MARTHA Administration Multi-Ingred Cream/Lotion/Oil/Oint 1 applic 03/21/19 17:45 Artificial Tears Ophth Oint OU Q4HR PRN Dry Eye(s) Simple Syrup 15 ml 03/19/19 15:17 Simple Syrup FEEDTUBE PRN PRN Hypoglycemia Simple Syrup 30 ml 03/19/19 15:17 Simple Syrup FEEDTUBE PRN PRN Hypoglycemia Sodium Bicarbonate 325 mg 03/19/19 15:17 Sodium Bicarbonate FEEDTUBE PRN PRN For Clogged Feeding Tube Sodium Chloride 10 ml 03/18/19 22:00 03/25/19 10:24 Sodium Chloride Flush Syringe 10 Ml IV 10 ml BID MARTHA Administration Sodium Chloride 10 ml 03/18/19 17:32 Sodium Chloride Flush Syringe 10 Ml IV PRN PRN LINE FLUSH
--- NOTE | 2019-03-25 16:46 | Progress Note ---
Assessment and Plan /Acute encephalopathy likely from SIRS vs CRISTÓBAL Vs underlying seizure monitor clinically. MRI brain w/o any acute change, CSF study negative cont to treat underlying cause, reconsult neurology / SIRS, likely from new onset seizure Sepsis with possible meningitis - ruled out cannot r/o meningitis as presented with seizure, encephalopathy and elevated white count Admited to ICU with Sepsis protocol: IV fluid resuscitation therapy, serial CBC, BMP, lactic acid level, IV abx, ordered Cx negative blood cx report, URINE for MSSA - could be a skin contaminant ordered for LP - placed on Iv coverage for viral and bacterial meningitis, ID consulted s/p LP 03/20/19 - study result not convincing for bacterial meningitis, also negative for viral PCR - stopped abx today cont to treat for seizure, wbc trended down, monitor off abx / CRISTÓBAL (acute kidney injury): likely vasomotor nephropathy - Cr improving cont IV fluid resuscitation therapy, monitor urine output every shift, strict I's/O, Nephrology following /hypokalemia, repleted, follow BMP / metabolic Acidosis - due to sepsis vs CRISTÓBAL - resolved IV fluid resuscitation therapy, monitor urine output every shift, s/p IV bicarbonate therapy. / Acute respiratory failure with hypoxia Patient intubated and placed on ventilatory support, daily SBT, sedation holiday, Now on cpap, cont nebs, possible extubation when mental status improves / HLD (hyperlipidemia) TF diet for now, statin therapy as clinically indicated. / DM type 2 - SSI as needed /Acute onset seizure, started on keppra - EEG showed + for seizure, neurology recomsulted /DVT prophylaxis SCD to bilateral lower extremities while in bed, prophylactic heparin. The high probability of a clinically significant, sudden or life threatening deterioration of the [cardiac, pulmonary, renal, neurologic] system(s) required my full and direct attention, intervention and personal management. The aggregate critical care time was [35] minutes. This time is in addition to time spent performing reported procedures but includes the following: [x] Data Review and interpretation [x] Patient assessment and monitoring of vital signs [x] Documentation [x] Medication orders and management Disposition: not medically stable for d/c Subjective Date of service: 03/25/19 Principal diagnosis: Severe Sepsis; CRISTÓBAL; Ac hypoxemic resp failure; DM II; Seizures; AMS Interval history: Patient seen and examined Patient remained intubated, off sedation afebrile, white count trended down off sedation since 03/20 - patient remained unresponsive On CPAP on vent now discussed with family at bedside Objective - Constitutional Vitals: Vital Signs - 12hr 03/25/19 03/25/19 03/25/19 05:00 05:30 06:00 Temperature Pulse Rate 96 H 90 89 Pulse Rate [ From Monitor] Respiratory 19 23 21 Rate Blood Pressure 118/59 126/66 120/56 O2 Sat by Pulse 94 94 93 Oximetry 03/25/19 03/25/19 03/25/19 06:30 07:00 07:30 Temperature Pulse Rate 91 H 86 86 Pulse Rate [ From Monitor] Respiratory 21 17 19 Rate Blood Pressure 138/59 108/51 134/58 O2 Sat by Pulse 95 95 94 Oximetry 03/25/19 03/25/19 03/25/19 08:00 08:13 08:20 Temperature 97.9 F Pulse Rate 82 90 86 Pulse Rate [ 82 From Monitor] Respiratory 18 Rate Blood Pressure 115/53 115/53 O2 Sat by Pulse 95 97 Oximetry 03/25/19 03/25/19 03/25/19 08:30 09:00 09:30 Temperature Pulse Rate 90 85 87 Pulse Rate [ From Monitor] Respiratory 19 15 16 Rate Blood Pressure 115/53 122/56 122/60 O2 Sat by Pulse 97 97 94 Oximetry 03/25/19 03/25/19 03/25/19 10:00 10:30 11:00 Temperature Pulse Rate 82 88 95 H Pulse Rate [ From Monitor] Respiratory 15 20 20 Rate Blood Pressure 119/53 140/65 140/65 O2 Sat by Pulse 97 97 99 Oximetry 03/25/19 03/25/19 03/25/19 11:30 12:00 12:30 Temperature Pulse Rate 82 87 88 Pulse Rate [ From Monitor] Respiratory 15 16 16 Rate Blood Pressure 119/57 117/60 112/48 O2 Sat by Pulse 97 98 98 Oximetry 03/25/19 03/25/19 03/25/19 12:54 13:00 13:30 Temperature Pulse Rate 83 91 H 86 Pulse Rate [ From Monitor] Respiratory 15 18 17 Rate Blood Pressure 112/48 112/48 98/59 O2 Sat by Pulse 100 99 100 Oximetry 03/25/19 03/25/19 14:00 14:30 Temperature Pulse Rate 93 H 92 H Pulse Rate [ From Monitor] Respiratory 18 14 Rate Blood Pressure 109/55 100/64 O2 Sat by Pulse 100 98 Oximetry - Labs CBC & Chem 7: 03/26/19 04:49 03/26/19 04:49 Labs: Abnormal lab results 03/24/19 03/24/19 03/25/19 Range/Units 17:16 23:27 01:57 ABG pH 7.470 H (7.350-7.450) pH Units ABG pO2 73.5 L (80.0-90.0) mm Hg ABG Hemoglobin 7.5 L (14.0-18.0) gm/dl Sodium (137-145) mmol/L Carbon Dioxide (22-30) mmol/L BUN (9-20) mg/dL Glucose (75-100) mg/dL POC Glucose 200 H 189 H (70-105) Calcium (8.4-10.2) mg/dL 03/25/19 03/25/19 03/25/19 Range/Units 04:23 05:24 12:23 ABG pH (7.350-7.450) pH Units ABG pO2 (80.0-90.0) mm Hg ABG Hemoglobin (14.0-18.0) gm/dl Sodium 134 L (137-145) mmol/L Carbon Dioxide 21 L (22-30) mmol/L BUN 28 H (9-20) mg/dL Glucose 179 H (75-100) mg/dL POC Glucose 198 H 184 H (70-105) Calcium 8.3 L (8.4-10.2) mg/dL
--- NOTE | 2019-03-25 19:23 | Consultation ---
History of Present Illness Consult date: 03/25/19 Reason for Consult: altered mental status Chief complaint: Altered mental status History of present illness: Patient is a 68-year-old man with history of hypertension, diabetes, OA, hyperlipidemia, obesity. He presented on as he was found down and unresponsive at home. EMS was called, and patient was brought to [facility] for further evaluation. On admission, patient was found to have sepsis, AKA, acidosis, hypoxemic respiratory failure and encephalopathy. Patient was intubated on admission. Patient is being followed last week by neurology, and was noted to have 2 partial seizures on EEG, for which he was started on Keppra. Repeat EEG showed improvement with no seizures on second EEG. Neurology was reconsulted to evaluate patient in setting of encephalopathy. Past History Past Medical History: arthritis, diabetes, hypertension, hyperlipidemia Past Surgical History: Other (Leg surgery) Social history: single. denies: smoking, alcohol abuse, prescription drug abuse Family history: CAD, diabetes, hypertension Medications and Allergies Allergies Allergy/AdvReac Type Severity Reaction Status Date / Time No Known Allergies Allergy Verified 01/21/16 10:17 Home Medications Medication Instructions Recorded Confirmed Last Taken Type Acetaminophen [Acetaminophen TAB] 2 tab PO Q4H PRN #15 tablet 02/10/19 03/19/19 Unknown Rx Aspirin 325 mg PO QDAY #30 tablet 02/10/19 03/19/19 Unknown Rx Magnesium Hydroxide [Milk of 30 ml PO Q4H PRN #15 oral.liqd 02/10/19 03/19/19 Unknown Rx Magnesia] OLANzapine [ZyPREXA] 2.5 mg PO QDAY #30 tablet 02/10/19 03/19/19 Unknown Rx Pantoprazole [Protonix TAB] 20 mg PO QDAY #30 tablet. 02/10/19 03/19/19 Unknown Rx Active Meds: Active Medications Acetaminophen (Tylenol) 650 mg PO Q4H PRN PRN Reason: Pain MILD(1-3)/Fever >100.5/ROSA Last Admin: 03/22/19 16:28 Dose: 650 mg Documented by: Lipase/Protease/Amylase (Beronica Huggins 10,500 Unit) 1 each FEEDTUBE PRN PRN PRN Reason: For Clogged Feeding Tube Clonidine HCl (Catapres-Tts Patch) 0.2 mg TD Raymond MARTHA Last Admin: 03/22/19 12:39 Dose: 0.2 mg Documented by: Dextrose (D50w (25gm) Syringe) 0 ml IV Q30MIN PRN; Protocol PRN Reason: Hypoglycemia Famotidine (Pepcid) 20 mg PO BID [facility] Last Admin: 03/25/19 10:23 Dose: 20 mg Documented by: Heparin Sodium (Porcine) (Heparin) 5,000 unit SUB-Q Q12HR [facility] Last Admin: 03/25/19 10:23 Dose: 5,000 unit Documented by: Hydralazine HCl (Apresoline) 10 mg IV Q4H PRN PRN Reason: Hypertension Hydrophilic Ointment (Vaseline Lip Therapy) 1 applic TP Q2HR PRN PRN Reason: Dry Lips Insulin Human Lispro (Humalog) 0 unit SUB-Q Q6HR [facility]; Protocol Last Admin: 03/25/19 18:16 Dose: 2 unit Documented by: Levetiracetam (Keppra) 750 mg PO BID [facility] Last Admin: 03/25/19 10:23 Dose: 750 mg Documented by: Multi-Ingred Cream/Lotion/Oil/Oint (Artificial Tears Ophth Oint) 1 applic OU Q4HR PRN PRN Reason: Dry Eye(s) Simple Syrup (Simple Syrup) 15 ml FEEDTUBE PRN PRN PRN Reason: Hypoglycemia Simple Syrup (Simple Syrup) 30 ml FEEDTUBE PRN PRN PRN Reason: Hypoglycemia Sodium Bicarbonate (Sodium Bicarbonate) 325 mg FEEDTUBE PRN PRN PRN Reason: For Clogged Feeding Tube Sodium Chloride (Sodium Chloride Flush Syringe 10 Ml) 10 ml IV BID [facility] Last Admin: 03/25/19 10:24 Dose: 10 ml Documented by: Sodium Chloride (Sodium Chloride Flush Syringe 10 Ml) 10 ml IV PRN PRN PRN Reason: LINE FLUSH Review of Systems ROS unobtainable: due to endotracheal tube, due to mental status Physical Examination - Vital Signs Vital Signs: Vital Signs Pulse Ox 87 03/18/19 13:28 - Physical Exam Narrative exam: Patient is comatose, intubated. PERRLA, corneal reflex positive, cough reflex positive. Noted to have spontaneous eye opening. Withdraws all extremities with pain stimulus. 2+ reflexes throughout. - Constitutional General appearance: acutely ill - EENT EENT: Present: ATNC, PERRL, mucous membranes moist - Respiratory Respiratory: Present: decreased breath sounds - Cardiovascular Cardiovascular: Present: regular rate, normal S1, normal S2 Extremities: Present: no clubbing, cyanosis, no inflammation - Gastrointestinal Gastrointestinal: Present: normoactive bowel sounds, soft, non-tender Results - Laboratory Findings CBC and BMP: 03/22/19 04:47 03/25/19 04:23 Abnormal Lab Findings: Abnormal Labs 03/18/19 03/18/19 03/18/19 14:17 14:17 14:17 WBC 38.1 H RBC Hgb Hct MCV 83 L MCH 27 L Plt Count 740 H Lymph % (Auto) Lymph # [place] # Seg Neutrophils % Seg Neuts % (Manual) 93.0 H Lymphocytes % (Manual) 2.5 L Monocytes % (Manual) Seg Neutrophils # Seg Neutrophils # Man 35.4 H Lymphocytes # (Manual) 1.0 L Monocytes # (Manual) 1.5 H Thrombin Time 14.7 L ABG pH ABG pO2 ABG O2 Saturation ABG Base Excess ABG Hemoglobin Sodium Potassium Chloride 94.9 L Carbon Dioxide 20 L BUN 34 H Creatinine 2.7 H Glucose 244 H POC Glucose Lactic Acid Calcium 10.6 H Phosphorus Total Creatine Kinase Troponin T 0.297 H* Total Protein Albumin Cholesterol 264 H LDL Cholesterol Direct 182 H Ur Specific [place] Urine WBC (Auto) Urine Creatinine 03/18/19 03/18/19 03/18/19 15:33 15:33 17:55 WBC RBC Hgb Hct MCV MCH Plt Count Lymph % (Auto) Lymph # [place] # Seg Neutrophils % Seg Neuts % (Manual) Lymphocytes % (Manual) Monocytes % (Manual) Seg Neutrophils # Seg Neutrophils # Man Lymphocytes # (Manual) Monocytes # (Manual) Thrombin Time ABG pH ABG pO2 ABG O2 Saturation ABG Base Excess ABG Hemoglobin Sodium Potassium Chloride Carbon Dioxide BUN Creatinine Glucose POC Glucose Lactic Acid 2.70 H* 3.00 H* Calcium Phosphorus Total Creatine Kinase 2896 H Troponin T Total Protein Albumin Cholesterol LDL Cholesterol Direct Ur Specific [place] Urine WBC (Auto) Urine Creatinine 03/18/19 03/18/19 03/18/19 20:22 Unknown Unknown WBC RBC Hgb Hct MCV MCH Plt Count Lymph % (Auto) Lymph # [place] # Seg Neutrophils % Seg Neuts % (Manual) Lymphocytes % (Manual) Monocytes % (Manual) Seg Neutrophils # Seg Neutrophils # Man Lymphocytes # (Manual) Monocytes # (Manual) Thrombin Time ABG pH ABG pO2 183.5 H ABG O2 Saturation 99.2 H ABG Base Excess ABG Hemoglobin 12.7 L Sodium Potassium Chloride Carbon Dioxide BUN Creatinine Glucose POC Glucose Lactic Acid 3.00 H* Calcium Phosphorus Total Creatine Kinase Troponin T Total Protein Albumin Cholesterol LDL Cholesterol Direct Ur Specific [place] 1.046 H Urine WBC (Auto) 23.0 H Urine Creatinine 03/19/19 03/19/19 03/19/19 01:38 02:56 02:56 WBC 25.4 H RBC Hgb 11.3 L Hct 34.1 L D MCV 83 L MCH 27 L Plt Count 496 H Lymph % (Auto) Lymph # [place] # Seg Neutrophils % Seg Neuts % (Manual) 90.0 H Lymphocytes % (Manual) 3.0 L Monocytes % (Manual) Seg Neutrophils # Seg Neutrophils # Man 22.9 H Lymphocytes # (Manual) 0.8 L Monocytes # (Manual) 1.8 H Thrombin Time ABG pH ABG pO2 ABG O2 Saturation ABG Base Excess ABG Hemoglobin Sodium Potassium Chloride Carbon Dioxide 20 L BUN 34 H Creatinine 2.5 H Glucose 208 H POC Glucose Lactic Acid Calcium Phosphorus Total Creatine Kinase Troponin T Total Protein 5.9 L Albumin 2.9 L Cholesterol LDL Cholesterol Direct Ur Specific [place] Urine WBC (Auto) Urine Creatinine 142.9 H 03/19/19 03/19/19 03/19/19 05:12 14:39 23:08 WBC RBC Hgb Hct MCV MCH Plt Count Lymph % (Auto) Lymph # [place] # Seg Neutrophils % Seg Neuts % (Manual) Lymphocytes % (Manual) Monocytes % (Manual) Seg Neutrophils # Seg Neutrophils # Man Lymphocytes # (Manual) Monocytes # (Manual) Thrombin Time ABG pH ABG pO2 201.8 H ABG O2 Saturation 99.3 H ABG Base Excess -2.8 L ABG Hemoglobin Sodium Potassium Chloride Carbon Dioxide BUN Creatinine Glucose POC Glucose 185 H Lactic Acid Calcium Phosphorus Total Creatine Kinase Troponin T 0.200 H* D Total Protein Albumin Cholesterol LDL Cholesterol Direct Ur Specific [place] Urine WBC (Auto) Urine Creatinine 03/20/19 03/20/19 03/20/19 00:12 03:44 05:19 WBC RBC Hgb Hct MCV MCH Plt Count Lymph % (Auto) Lymph # [place] # Seg Neutrophils % Seg Neuts % (Manual) Lymphocytes % (Manual) Monocytes % (Manual) Seg Neutrophils # Seg Neutrophils # Man Lymphocytes # (Manual) Monocytes # (Manual) Thrombin Time ABG pH ABG pO2 122.8 H ABG O2 Saturation ABG Base Excess -3.0 L ABG Hemoglobin 8.9 L Sodium Potassium Chloride Carbon Dioxide BUN Creatinine Glucose POC Glucose 193 H 202 H Lactic Acid Calcium Phosphorus Total Creatine Kinase Troponin T Total Protein Albumin Cholesterol LDL Cholesterol Direct Ur Specific [place] Urine WBC (Auto) Urine Creatinine 03/20/19 03/20/19 03/20/19 05:26 05:26 05:26 WBC 19.5 H RBC Hgb 10.8 L Hct 33.0 L MCV 82 L MCH 27 L Plt Count Lymph % (Auto) 5.4 L Lymph # 1.1 L [place] # 1.4 H Seg Neutrophils % 86.8 H Seg Neuts % (Manual) Lymphocytes % (Manual) Monocytes % (Manual) Seg Neutrophils # 16.9 H Seg Neutrophils # Man Lymphocytes # (Manual) Monocytes # (Manual) Thrombin Time ABG pH ABG pO2 ABG O2 Saturation ABG Base Excess ABG Hemoglobin Sodium Potassium Chloride 110.5 H Carbon Dioxide 17 L BUN 41 H Creatinine 2.6 H Glucose 199 H POC Glucose Lactic Acid Calcium Phosphorus Total Creatine Kinase 396 H Troponin T 0.191 H* Total Protein Albumin Cholesterol LDL Cholesterol Direct Ur Specific [place] Urine WBC (Auto) Urine Creatinine 03/20/19 03/20/19 03/20/19 11:33 15:23 18:28 WBC RBC Hgb Hct MCV MCH Plt Count Lymph % (Auto) Lymph # [place] # Seg Neutrophils % Seg Neuts % (Manual) Lymphocytes % (Manual) Monocytes % (Manual) Seg Neutrophils # Seg Neutrophils # Man Lymphocytes # (Manual) Monocytes # (Manual) Thrombin Time ABG pH ABG pO2 ABG O2 Saturation ABG Base Excess ABG Hemoglobin Sodium Potassium Chloride Carbon Dioxide BUN Creatinine Glucose POC Glucose 196 H 190 H Lactic Acid Calcium Phosphorus Total Creatine Kinase Troponin T 0.214 H* Total Protein Albumin Cholesterol LDL Cholesterol Direct Ur Specific [place] Urine WBC (Auto) Urine Creatinine 03/20/19 03/21/19 03/21/19 23:14 03:29 04:07 WBC RBC Hgb Hct MCV MCH Plt Count Lymph % (Auto) Lymph # [place] # Seg Neutrophils % Seg Neuts % (Manual) Lymphocytes % (Manual) Monocytes % (Manual) Seg Neutrophils # Seg Neutrophils # Man Lymphocytes # (Manual) Monocytes # (Manual) Thrombin Time ABG pH 7.483 H ABG pO2 97.5 H ABG O2 Saturation ABG Base Excess ABG Hemoglobin 8.5 L Sodium 146 H Potassium 3.1 L D Chloride 109.8 H Carbon Dioxide BUN 35 H Creatinine 1.9 H Glucose 200 H POC Glucose 190 H Lactic Acid Calcium Phosphorus 1.80 L Total Creatine Kinase Troponin T Total Protein Albumin Cholesterol LDL Cholesterol Direct Ur Specific [place] Urine WBC (Auto) Urine Creatinine 03/21/19 03/21/19 03/21/19 05:22 11:52 18:06 WBC RBC Hgb Hct MCV MCH Plt Count Lymph % (Auto) Lymph # [place] # Seg Neutrophils % Seg Neuts % (Manual) Lymphocytes % (Manual) Monocytes % (Manual) Seg Neutrophils # Seg Neutrophils # Man Lymphocytes # (Manual) Monocytes # (Manual) Thrombin Time ABG pH ABG pO2 ABG O2 Saturation ABG Base Excess ABG Hemoglobin Sodium Potassium Chloride Carbon Dioxide BUN Creatinine Glucose POC Glucose 189 H 236 H 164 H Lactic Acid Calcium Phosphorus Total Creatine Kinase Troponin T Total Protein Albumin Cholesterol LDL Cholesterol Direct Ur Specific [place] Urine WBC (Auto) Urine Creatinine 03/21/19 03/22/19 03/22/19 23:36 04:47 04:47 WBC RBC 3.62 L Hgb 10.1 L Hct 29.9 L MCV 83 L MCH Plt Count Lymph % (Auto) Lymph # [place] # Seg Neutrophils % Seg Neuts % (Manual) 83.0 H Lymphocytes % (Manual) 8.0 L Monocytes % (Manual) 8.0 H Seg Neutrophils # Seg Neutrophils # Man 8.8 H Lymphocytes # (Manual) 0.8 L Monocytes # (Manual) Thrombin Time ABG pH ABG pO2 ABG O2 Saturation ABG Base Excess ABG Hemoglobin Sodium Potassium Chloride 107.8 H Carbon Dioxide 19 L BUN 28 H Creatinine 1.6 H Glucose 198 H POC Glucose 211 H Lactic Acid Calcium Phosphorus 2.40 L D Total Creatine Kinase Troponin T Total Protein Albumin Cholesterol LDL Cholesterol Direct Ur Specific [place] Urine WBC (Auto) Urine Creatinine 03/22/19 03/22/19 03/22/19 05:20 05:29 10:10 WBC RBC Hgb Hct MCV MCH Plt Count Lymph % (Auto) Lymph # [place] # Seg Neutrophils % Seg Neuts % (Manual) Lymphocytes % (Manual) Monocytes % (Manual) Seg Neutrophils # Seg Neutrophils # Man Lymphocytes # (Manual) Monocytes # (Manual) Thrombin Time ABG pH 7.481 H 7.483 H ABG pO2 74.6 L 79.4 L ABG O2 Saturation ABG Base Excess ABG Hemoglobin 9.7 L 9.2 L Sodium Potassium Chloride Carbon Dioxide BUN Creatinine Glucose POC Glucose 202 H Lactic Acid Calcium Phosphorus Total Creatine Kinase Troponin T Total Protein Albumin Cholesterol LDL Cholesterol Direct Ur Specific [place] Urine WBC (Auto) Urine Creatinine 03/22/19 03/22/19 03/22/19 12:29 17:34 23:16 WBC RBC Hgb Hct MCV MCH Plt Count Lymph % (Auto) Lymph # [place] # Seg Neutrophils % Seg Neuts % (Manual) Lymphocytes % (Manual) Monocytes % (Manual) Seg Neutrophils # Seg Neutrophils # Man Lymphocytes # (Manual) Monocytes # (Manual) Thrombin Time ABG pH ABG pO2 ABG O2 Saturation ABG Base Excess ABG Hemoglobin Sodium Potassium Chloride Carbon Dioxide BUN Creatinine Glucose POC Glucose 234 H 225 H 205 H Lactic Acid Calcium Phosphorus Total Creatine Kinase Troponin T Total Protein Albumin Cholesterol LDL Cholesterol Direct Ur Specific [place] Urine WBC (Auto) Urine Creatinine 03/23/19 03/23/19 03/23/19 03:27 03:50 04:17 WBC RBC Hgb Hct MCV MCH Plt Count Lymph % (Auto) Lymph # [place] # Seg Neutrophils % Seg Neuts % (Manual) Lymphocytes % (Manual) Monocytes % (Manual) Seg Neutrophils # Seg Neutrophils # Man Lymphocytes # (Manual) Monocytes # (Manual) Thrombin Time ABG pH 7.486 H ABG pO2 75.2 L ABG O2 Saturation ABG Base Excess ABG Hemoglobin 9.6 L Sodium Potassium Chloride Carbon Dioxide BUN Creatinine Glucose POC Glucose 113 H 173 H Lactic Acid Calcium Phosphorus Total Creatine Kinase Troponin T Total Protein Albumin Cholesterol LDL Cholesterol Direct Ur Specific [place] Urine WBC (Auto) Urine Creatinine 03/23/19 03/23/19 03/23/19 05:12 12:32 18:20 WBC RBC Hgb Hct MCV MCH Plt Count Lymph % (Auto) Lymph # [place] # Seg Neutrophils % Seg Neuts % (Manual) Lymphocytes % (Manual) Monocytes % (Manual) Seg Neutrophils # Seg Neutrophils # Man Lymphocytes # (Manual) Monocytes # (Manual) Thrombin Time ABG pH ABG pO2 ABG O2 Saturation ABG Base Excess ABG Hemoglobin Sodium Potassium Chloride 107.3 H Carbon Dioxide 21 L BUN 27 H Creatinine 1.6 H Glucose 166 H POC Glucose 212 H 190 H Lactic Acid Calcium Phosphorus Total Creatine Kinase Troponin T Total Protein Albumin Cholesterol LDL Cholesterol Direct Ur Specific [place] Urine WBC (Auto) Urine Creatinine 03/23/19 03/24/19 03/24/19 23:40 05:15 05:24 WBC RBC Hgb Hct MCV MCH Plt Count Lymph % (Auto) Lymph # [place] # Seg Neutrophils % Seg Neuts % (Manual) Lymphocytes % (Manual) Monocytes % (Manual) Seg Neutrophils # Seg Neutrophils # Man Lymphocytes # (Manual) Monocytes # (Manual) Thrombin Time ABG pH ABG pO2 ABG O2 Saturation ABG Base Excess ABG Hemoglobin Sodium Potassium Chloride Carbon Dioxide 21 L BUN 28 H Creatinine Glucose 139 H POC Glucose 172 H 128 H Lactic Acid Calcium Phosphorus Total Creatine Kinase Troponin T Total Protein Albumin Cholesterol LDL Cholesterol Direct Ur Specific [place] Urine WBC (Auto) Urine Creatinine 03/24/19 03/24/19 03/24/19 12:21 17:16 23:27 WBC RBC Hgb Hct MCV MCH Plt Count Lymph % (Auto) Lymph # [place] # Seg Neutrophils % Seg Neuts % (Manual) Lymphocytes % (Manual) Monocytes % (Manual) Seg Neutrophils # Seg Neutrophils # Man Lymphocytes # (Manual) Monocytes # (Manual) Thrombin Time ABG pH ABG pO2 ABG O2 Saturation ABG Base Excess ABG Hemoglobin Sodium Potassium Chloride Carbon Dioxide BUN Creatinine Glucose POC Glucose 213 H 200 H 189 H Lactic Acid Calcium Phosphorus Total Creatine Kinase Troponin T Total Protein Albumin Cholesterol LDL Cholesterol Direct Ur Specific [place] Urine WBC (Auto) Urine Creatinine 03/25/19 03/25/19 03/25/19 01:57 04:23 05:24 WBC RBC Hgb Hct MCV MCH Plt Count Lymph % (Auto) Lymph # [place] # Seg Neutrophils % Seg Neuts % (Manual) Lymphocytes % (Manual) Monocytes % (Manual) Seg Neutrophils # Seg Neutrophils # Man Lymphocytes # (Manual) Monocytes # (Manual) Thrombin Time ABG pH 7.470 H ABG pO2 73.5 L ABG O2 Saturation ABG Base Excess ABG Hemoglobin 7.5 L Sodium 134 L Potassium Chloride Carbon Dioxide 21 L BUN 28 H Creatinine Glucose 179 H POC Glucose 198 H Lactic Acid Calcium 8.3 L Phosphorus Total Creatine Kinase Troponin T Total Protein Albumin Cholesterol LDL Cholesterol Direct Ur Specific [place] Urine WBC (Auto) Urine Creatinine 03/25/19 03/25/19 12:23 17:31 WBC RBC Hgb Hct MCV MCH Plt Count Lymph % (Auto) Lymph # [place] # Seg Neutrophils % Seg Neuts % (Manual) Lymphocytes % (Manual) Monocytes % (Manual) Seg Neutrophils # Seg Neutrophils # Man Lymphocytes # (Manual) Monocytes # (Manual) Thrombin Time ABG pH ABG pO2 ABG O2 Saturation ABG Base Excess ABG Hemoglobin Sodium Potassium Chloride Carbon Dioxide BUN Creatinine Glucose POC Glucose 184 H 181 H Lactic Acid Calcium Phosphorus Total Creatine Kinase Troponin T Total Protein Albumin Cholesterol LDL Cholesterol Direct Ur Specific [place] Urine WBC (Auto) Urine Creatinine Assessment and Plan Patient is a 68-year-old man with history of hypertension, diabetes, OA, hyperlipidemia, obesity, who presented on after he was found down and unresponsive at home. Patient was found to have sepsis, CRISTÓBAL, acidosis, hypoxemic respiratory failure, and encephalopathy. According the patient's clinical findings, it is likely that he has metabolic encephalopathy. The patient also may have had seizures, as EEG on admission showed 2 possible partial seizures. Plan: 1. Metabolic encephalopathy: CT head on March 18: No acute abnormality. MRI on : No acute abnormality. CTA head and neck: No significant stenosis or large vessel occlusion. EEG on general : Showed generalized slowing as well as 2 possible partial seizures. EEG on March 20 showed generalized slowing, and no seizures. - Continue Keppra. LP was done, and CSF notable for increased WBCs, however CSF PCR was negative. - Continue antibiotics per ID. Continue to treat anabolic infectious abdomen maladies per primary team/ID/critical care team. Will check EEG tomorrow - Discussed with family regarding patient's current neurologic status, including multifactorial encephalopathy, due to CRISTÓBAL, sepsis, acidosis, and respiratory failure. - Will continue to monitor patient's neurologic status. Thank you for allowing me to take part in the care of this patient. Lukas Shelton MD Neurology
[2019-03-25] MEDS: ACETAMINOPHEN 325 MG TAB PO PRN (20:24)
[2019-03-26] MEDS: INSULIN LISPRO 100 UNIT/ML SUB-Q SCH ×4 (00:38→18:21)
[2019-03-26] MEDS ORDERED: LEVALBUTEROL 0.63 MG/3 ML NEBU IH PRN (01:20)
[2019-03-26] MEDS ORDERED: ALBUTEROL 2.5 MG/3 ML NEBU IH ONE ×2 (01:26→01:30)
[2019-03-26] MEDS: ACETAMINOPHEN 325 MG TAB PO PRN (01:37)
--- NOTE | 2019-03-26 03:15 | XRay Report ---
CHEST 1 VIEW INDICATION / CLINICAL INFORMATION: increase bpm on vent. COMPARISON: 03/24/2019 FINDINGS: SUPPORT DEVICES: Endotracheal tube and nasogastric tube appear unchanged HEART / MEDIASTINUM: Unchanged LUNGS / PLEURA: Mild basilar atelectasis persists. There are low lung volumes bilaterally. No pneumo thorax. ADDITIONAL FINDINGS: No significant additional findings. IMPRESSION: 1. No significant change. Signer Name: Aaron Coker MD Signed: 03/26/2019 3:11 AM Workstation Name: [employer]
[2019-03-26 05:15] LABS: Basophils # (Auto) 0.1 K/mm3 (0.0-0.1); Basophils % (Auto) 0.6 % (0.0-1.8); Eosinophils # (Auto) 0.1 K/mm3 (0.0-0.4); Eosinophils % (Auto) 0.4 % (0.0-4.3); Hematocrit 28.6 % (35.5-45.6); Hemoglobin 9.6 gm/dl (11.8-15.2); Lymphocytes # (Auto) 0.8 K/mm3 (1.2-5.4); Lymphocytes % (Auto) 6.3 % (13.4-35.0); Mean Corpuscular HGB Conc 34 % (32-34); Mean Corpuscular Volume 82 fl (84-94); Monocytes # (Auto) 0.6 K/mm3 (0.0-0.8); Monocytes % (Auto) 4.5 % (0.0-7.3); Platelet Count 405 K/mm3 (140-440); Red Blood Count 3.47 M/mm3 (3.65-5.03); Red Cell Distribution Width 14.4 % (13.2-15.2)
[2019-03-26 05:29] LABS: Calcium 8.5 mg/dL (8.4-10.2)
[2019-03-26] MEDS: HEPARIN 5,000 UNIT/1 ML VIAL SUB-Q SCH ×2 (09:03→21:18)
[2019-03-26] MEDS: levETIRAcetam 500 MG/5 ML ORAL LIQD PO SCH ×2 (09:03→21:17)
[2019-03-26] MEDS: FAMOTIDINE 20 MG TAB PO SCH ×2 (09:03→21:18)
--- NOTE | 2019-03-26 11:07 | Electroencephalogram Report ---
Electroencephalogram EEG Date of exam: 03/26/19 History: Patient is a 68-year-old man with history of hypertension, diabetes, OA, hyperlipidemia, obesity, who presented on March 18 after he was found down and unresponsive at home. Description: Impression: 1. Generalized slowing 2. No seizures noted during recording. Description: At the onset of this recording, the patient is lying supine. The background we note a 4 Hz delta activity that has an amplitude ranging 20-30 V. There are no asymmetries in amplitude or frequency between hemispheres. Intermittent photic stimulation was not performed. Hyperventilation was not performed. Significant lead artifact noted during EEG recording. Interpretation: This routine EEG performed during sleep is abnormal secondary to above findings and is consistent with bihemispheric dysfunction and encephalopathy. The above described findings of diffuse slowing is etiologically nonspecific, and similar findings have been reported in cases of toxic, metabolic, hypoxic ischemic, infectious, medication, sleep deprivation, dementia, postictal state, and other causes of diffuse and multifocal encephalopathy.
--- NOTE | 2019-03-26 11:11 | Progress Note ---
Assessment and Plan Patient is a 68-year-old man with history of hypertension, diabetes, OA, hyperlipidemia, obesity, who presented on March 18 after he was found down and unresponsive at home. Patient was found to have sepsis, CRISTÓBAL, acidosis, hypoxemic respiratory failure, and encephalopathy. According the patient's clinical findings, it is likely that he has metabolic encephalopathy. The patient also may have had seizures, as EEG on admission showed 2 possible partial seizures. Plan: 1. Metabolic encephalopathy: CT head on March 18: No acute abnormality. MRI on generally : No acute abnormality. CTA head and neck: No significant stenosis or large vessel occlusion. EEG on : Showed generalized slowing as well as 2 possible partial seizures. EEG on March 20 showed generalized slowing, and no seizures. - EEG 03/26/18: generalized slowing, no seizure or epileptiform activity. - Continue Keppra. LP was done, and CSF notable for increased WBCs, however CSF PCR was negative. - Continue antibiotics per ID. Continue to treat anabolic infectious abnormalities per primary team/ID/critical care team. - Discussed with family regarding patient's current neurologic status, including multifactorial encephalopathy, due to CRISTÓBAL, sepsis, acidosis, and respiratory failure. - Will continue to monitor patient's neurologic status. Thank you for allowing me to take part in the care of this patient. Lukas Shelton MD Neurology Subjective Date of service: 03/26/19 Principal diagnosis: Severe Sepsis; CRISTÓBAL; Ac hypoxemic resp failure; DM II; Seizures; AMS Interval history: Patient febrile overnight. Objective - Exam Narrative Exam: Patient is comatose, intubated. PERRLA, corneal reflex positive, cough reflex positive. Noted to have spontaneous eye opening. Withdraws all extremities with pain stimulus. 2+ reflexes throughout. - Vital Sign Vital Signs - 12hr 03/25/19 03/26/19 03/26/19 23:30 00:00 00:17 Temperature 99.6 F Pulse Rate 107 H 120 H 129 H Pulse Rate [ Bilateral Throughout] Pulse Rate [ 130 H From Monitor] Respiratory 25 H 29 H Rate Respiratory Rate [Bilateral Throughout] Blood Pressure 131/60 150/60 182/62 O2 Sat by Pulse 98 96 96 Oximetry 03/26/19 03/26/19 03/26/19 00:30 00:38 01:00 Temperature Pulse Rate 127 H 124 H 130 H Pulse Rate [ Bilateral Throughout] Pulse Rate [ From Monitor] Respiratory 26 H 26 H Rate Respiratory Rate [Bilateral Throughout] Blood Pressure 182/62 176/71 182/62 O2 Sat by Pulse 96 95 Oximetry 03/26/19 03/26/19 03/26/19 01:30 01:53 02:00 Temperature Pulse Rate 143 H 131 H Pulse Rate [ 136 H Bilateral Throughout] Pulse Rate [ From Monitor] Respiratory 34 H 31 H Rate Respiratory 34 H Rate [Bilateral Throughout] Blood Pressure 143/68 162/69 O2 Sat by Pulse 96 97 Oximetry 03/26/19 03/26/19 03/26/19 02:30 03:00 03:30 Temperature Pulse Rate 125 H 119 H 113 H Pulse Rate [ Bilateral Throughout] Pulse Rate [ From Monitor] Respiratory 32 H 31 H 30 H Rate Respiratory Rate [Bilateral Throughout] Blood Pressure 148/83 148/83 127/55 O2 Sat by Pulse 98 97 98 Oximetry 03/26/19 03/26/19 03/26/19 03:47 03:48 04:00 Temperature 101.7 F H Pulse Rate 113 H 113 H Pulse Rate [ Bilateral Throughout] Pulse Rate [ 107 H From Monitor] Respiratory 29 H Rate Respiratory Rate [Bilateral Throughout] Blood Pressure 135/59 135/59 O2 Sat by Pulse 95 95 Oximetry 03/26/19 03/26/19 03/26/19 04:30 05:00 05:30 Temperature 99.4 F Pulse Rate 109 H 110 H 110 H Pulse Rate [ Bilateral Throughout] Pulse Rate [ From Monitor] Respiratory 27 H 28 H 27 H Rate Respiratory Rate [Bilateral Throughout] Blood Pressure 126/54 119/50 129/53 O2 Sat by Pulse 96 97 98 Oximetry 03/26/19 03/26/19 03/26/19 06:00 06:30 07:00 Temperature Pulse Rate 109 H 105 H 104 H Pulse Rate [ Bilateral Throughout] Pulse Rate [ From Monitor] Respiratory 35 H 24 25 H Rate Respiratory Rate [Bilateral Throughout] Blood Pressure 136/58 146/62 123/54 O2 Sat by Pulse 97 98 98 Oximetry 03/26/19 03/26/19 03/26/19 07:30 07:40 08:00 Temperature Pulse Rate 104 H 110 H 104 H Pulse Rate [ Bilateral Throughout] Pulse Rate [ 104 H From Monitor] Respiratory 24 22 22 Rate Respiratory Rate [Bilateral Throughout] Blood Pressure 120/58 109/61 O2 Sat by Pulse 98 96 98 Oximetry 03/26/19 03/26/19 03/26/19 08:28 08:30 09:01 Temperature Pulse Rate 110 H 107 H 110 H Pulse Rate [ Bilateral Throughout] Pulse Rate [ From Monitor] Respiratory 23 26 H Rate Respiratory Rate [Bilateral Throughout] Blood Pressure 120/58 124/61 O2 Sat by Pulse 97 97 Oximetry 03/26/19 03/26/19 03/26/19 09:30 10:00 10:30 Temperature Pulse Rate 103 H 104 H 108 H Pulse Rate [ Bilateral Throughout] Pulse Rate [ From Monitor] Respiratory 23 24 23 Rate Respiratory Rate [Bilateral Throughout] Blood Pressure 124/55 112/53 121/63 O2 Sat by Pulse 97 96 95 Oximetry 03/26/19 10:45 Temperature Pulse Rate 98 H Pulse Rate [ Bilateral Throughout] Pulse Rate [ From Monitor] Respiratory 20 Rate Respiratory Rate [Bilateral Throughout] Blood Pressure O2 Sat by Pulse 95 Oximetry - General Apperance Constitutional: acutely ill - EENT EENT: ATNC, PERRL, mucous membranes moist - Respiratory Respiratory: decreased breath sounds - Cardiovascular Cardiovascular: regular rate, normal S1, normal S2 Extremities: no clubbing, cyanosis, no inflammation - Gastrointestinal Gastrointestinal: normoactive bowel sounds, soft, non-tender - Laboratory Findings CBC and BMP: 03/26/19 04:49 03/26/19 04:49 Abnormal Lab Findings: Abnormal Labs 03/18/19 03/18/19 03/18/19 14:17 14:17 14:17 WBC 38.1 H RBC Hgb Hct MCV 83 L MCH 27 L Plt Count 740 H Lymph % (Auto) Lymph # [place] # Seg Neutrophils % Seg Neuts % (Manual) 93.0 H Lymphocytes % (Manual) 2.5 L Monocytes % (Manual) Seg Neutrophils # Seg Neutrophils # Man 35.4 H Lymphocytes # (Manual) 1.0 L Monocytes # (Manual) 1.5 H Thrombin Time 14.7 L ABG pH ABG pO2 ABG O2 Saturation ABG Base Excess ABG Hemoglobin Sodium Potassium Chloride 94.9 L Carbon Dioxide 20 L BUN 34 H Creatinine 2.7 H Glucose 244 H POC Glucose Lactic Acid Calcium 10.6 H Phosphorus Total Creatine Kinase Troponin T 0.297 H* Total Protein Albumin Cholesterol 264 H LDL Cholesterol Direct 182 H Ur Specific [place] Urine WBC (Auto) Urine Creatinine 0103/18/19 03/18/19 15:33 15:33 17:55 WBC RBC Hgb Hct MCV MCH Plt Count Lymph % (Auto) Lymph # [place] # Seg Neutrophils % Seg Neuts % (Manual) Lymphocytes % (Manual) Monocytes % (Manual) Seg Neutrophils # Seg Neutrophils # Man Lymphocytes # (Manual) Monocytes # (Manual) Thrombin Time ABG pH ABG pO2 ABG O2 Saturation ABG Base Excess ABG Hemoglobin Sodium Potassium Chloride Carbon Dioxide BUN Creatinine Glucose POC Glucose Lactic Acid 2.70 H* 3.00 H* Calcium Phosphorus Total Creatine Kinase 2896 H Troponin T Total Protein Albumin Cholesterol LDL Cholesterol Direct Ur Specific [place] Urine WBC (Auto) Urine Creatinine 03/18/19 03/18/19 03/18/19 20:22 Unknown Unknown WBC RBC Hgb Hct MCV MCH Plt Count Lymph % (Auto) Lymph # [place] # Seg Neutrophils % Seg Neuts % (Manual) Lymphocytes % (Manual) Monocytes % (Manual) Seg Neutrophils # Seg Neutrophils # Man Lymphocytes # (Manual) Monocytes # (Manual) Thrombin Time ABG pH ABG pO2 183.5 H ABG O2 Saturation 99.2 H ABG Base Excess ABG Hemoglobin 12.7 L Sodium Potassium Chloride Carbon Dioxide BUN Creatinine Glucose POC Glucose Lactic Acid 3.00 H* Calcium Phosphorus Total Creatine Kinase Troponin T Total Protein Albumin Cholesterol LDL Cholesterol Direct Ur Specific [place] 1.046 H Urine WBC (Auto) 23.0 H Urine Creatinine 03/19/19 03/19/19 03/19/19 01:38 02:56 02:56 WBC 25.4 H RBC Hgb 11.3 L Hct 34.1 L D MCV 83 L MCH 27 L Plt Count 496 H Lymph % (Auto) Lymph # [place] # Seg Neutrophils % Seg Neuts % (Manual) 90.0 H Lymphocytes % (Manual) 3.0 L Monocytes % (Manual) Seg Neutrophils # Seg Neutrophils # Man 22.9 H Lymphocytes # (Manual) 0.8 L Monocytes # (Manual) 1.8 H Thrombin Time ABG pH ABG pO2 ABG O2 Saturation ABG Base Excess ABG Hemoglobin Sodium Potassium Chloride Carbon Dioxide 20 L BUN 34 H Creatinine 2.5 H Glucose 208 H POC Glucose Lactic Acid Calcium Phosphorus Total Creatine Kinase Troponin T Total Protein 5.9 L Albumin 2.9 L Cholesterol LDL Cholesterol Direct Ur Specific [place] Urine WBC (Auto) Urine Creatinine 142.9 H 03/19/19 03/19/1903/19/20 05:12 14:39 23:08 WBC RBC Hgb Hct MCV MCH Plt Count Lymph % (Auto) Lymph # [place] # Seg Neutrophils % Seg Neuts % (Manual) Lymphocytes % (Manual) Monocytes % (Manual) Seg Neutrophils # Seg Neutrophils # Man Lymphocytes # (Manual) Monocytes # (Manual) Thrombin Time ABG pH ABG pO2 201.8 H ABG O2 Saturation 99.3 H ABG Base Excess -2.8 L ABG Hemoglobin Sodium Potassium Chloride Carbon Dioxide BUN Creatinine Glucose POC Glucose 185 H Lactic Acid Calcium Phosphorus Total Creatine Kinase Troponin T 0.200 H* D Total Protein Albumin Cholesterol LDL Cholesterol Direct Ur Specific [place] Urine WBC (Auto) Urine Creatinine 03/20/19 03/20/19 03/20/19 00:12 03:44 05:19 WBC RBC Hgb Hct MCV MCH Plt Count Lymph % (Auto) Lymph # [place] # Seg Neutrophils % Seg Neuts % (Manual) Lymphocytes % (Manual) Monocytes % (Manual) Seg Neutrophils # Seg Neutrophils # Man Lymphocytes # (Manual) Monocytes # (Manual) Thrombin Time ABG pH ABG pO2 122.8 H ABG O2 Saturation ABG Base Excess -3.0 L ABG Hemoglobin 8.9 L Sodium Potassium Chloride Carbon Dioxide BUN Creatinine Glucose POC Glucose 193 H 202 H Lactic Acid Calcium Phosphorus Total Creatine Kinase Troponin T Total Protein Albumin Cholesterol LDL Cholesterol Direct Ur Specific [place] Urine WBC (Auto) Urine Creatinine 03/20/19 03/20/19 03/20/19 05:26 05:26 05:26 WBC 19.5 H RBC Hgb 10.8 L Hct 33.0 L MCV 82 L MCH 27 L Plt Count Lymph % (Auto) 5.4 L Lymph # 1.1 L [place] # 1.4 H Seg Neutrophils % 86.8 H Seg Neuts % (Manual) Lymphocytes % (Manual) Monocytes % (Manual) Seg Neutrophils # 16.9 H Seg Neutrophils # Man Lymphocytes # (Manual) Monocytes # (Manual) Thrombin Time ABG pH ABG pO2 ABG O2 Saturation ABG Base Excess ABG Hemoglobin Sodium Potassium Chloride 110.5 H Carbon Dioxide 17 L BUN 41 H Creatinine 2.6 H Glucose 199 H POC Glucose Lactic Acid Calcium Phosphorus Total Creatine Kinase 396 H Troponin T 0.191 H* Total Protein Albumin Cholesterol LDL Cholesterol Direct Ur Specific [place] Urine WBC (Auto) Urine Creatinine 03/20/19 03/20/19 03/20/19 11:33 15:23 18:28 WBC RBC Hgb Hct MCV MCH Plt Count Lymph % (Auto) Lymph # [place] # Seg Neutrophils % Seg Neuts % (Manual) Lymphocytes % (Manual) Monocytes % (Manual) Seg Neutrophils # Seg Neutrophils # Man Lymphocytes # (Manual) Monocytes # (Manual) Thrombin Time ABG pH ABG pO2 ABG O2 Saturation ABG Base Excess ABG Hemoglobin Sodium Potassium Chloride Carbon Dioxide BUN Creatinine Glucose POC Glucose 196 H 190 H Lactic Acid Calcium Phosphorus Total Creatine Kinase Troponin T 0.214 H* Total Protein Albumin Cholesterol LDL Cholesterol Direct Ur Specific [place] Urine WBC (Auto) Urine Creatinine 03/20/19 03/21/19 03/21/19 23:14 03:29 04:07 WBC RBC Hgb Hct MCV MCH Plt Count Lymph % (Auto) Lymph # [place] # Seg Neutrophils % Seg Neuts % (Manual) Lymphocytes % (Manual) Monocytes % (Manual) Seg Neutrophils # Seg Neutrophils # Man Lymphocytes # (Manual) Monocytes # (Manual) Thrombin Time ABG pH 7.483 H ABG pO2 97.5 H ABG O2 Saturation ABG Base Excess ABG Hemoglobin 8.5 L Sodium 146 H Potassium 3.1 L D Chloride 109.8 H Carbon Dioxide BUN 35 H Creatinine 1.9 H Glucose 200 H POC Glucose 190 H Lactic Acid Calcium Phosphorus 1.80 L Total Creatine Kinase Troponin T Total Protein Albumin Cholesterol LDL Cholesterol Direct Ur Specific [place] Urine WBC (Auto) Urine Creatinine 03/21/19 03/21/19 03/21/19 05:22 11:52 18:06 WBC RBC Hgb Hct MCV MCH Plt Count Lymph % (Auto) Lymph # [place] # Seg Neutrophils % Seg Neuts % (Manual) Lymphocytes % (Manual) Monocytes % (Manual) Seg Neutrophils # Seg Neutrophils # Man Lymphocytes # (Manual) Monocytes # (Manual) Thrombin Time ABG pH ABG pO2 ABG O2 Saturation ABG Base Excess ABG Hemoglobin Sodium Potassium Chloride Carbon Dioxide BUN Creatinine Glucose POC Glucose 189 H 236 H 164 H Lactic Acid Calcium Phosphorus Total Creatine Kinase Troponin T Total Protein Albumin Cholesterol LDL Cholesterol Direct Ur Specific [place] Urine WBC (Auto) Urine Creatinine 03/21/19 03/22/19 03/22/19 23:36 04:47 04:47 WBC RBC 3.62 L Hgb 10.1 L Hct 29.9 L MCV 83 L MCH Plt Count Lymph % (Auto) Lymph # [place] # Seg Neutrophils % Seg Neuts % (Manual) 83.0 H Lymphocytes % (Manual) 8.0 L Monocytes % (Manual) 8.0 H Seg Neutrophils # Seg Neutrophils # Man 8.8 H Lymphocytes # (Manual) 0.8 L Monocytes # (Manual) Thrombin Time ABG pH ABG pO2 ABG O2 Saturation ABG Base Excess ABG Hemoglobin Sodium Potassium Chloride 107.8 H Carbon Dioxide 19 L BUN 28 H Creatinine 1.6 H Glucose 198 H POC Glucose 211 H Lactic Acid Calcium Phosphorus 2.40 L D Total Creatine Kinase Troponin T Total Protein Albumin Cholesterol LDL Cholesterol Direct Ur Specific [place] Urine WBC (Auto) Urine Creatinine 03/22/19 03/22/19 03/22/19 05:20 05:29 10:10 WBC RBC Hgb Hct MCV MCH Plt Count Lymph % (Auto) Lymph # [place] # Seg Neutrophils % Seg Neuts % (Manual) Lymphocytes % (Manual) Monocytes % (Manual) Seg Neutrophils # Seg Neutrophils # Man Lymphocytes # (Manual) Monocytes # (Manual) Thrombin Time ABG pH 7.481 H 7.483 H ABG pO2 74.6 L 79.4 L ABG O2 Saturation ABG Base Excess ABG Hemoglobin 9.7 L 9.2 L Sodium Potassium Chloride Carbon Dioxide BUN Creatinine Glucose POC Glucose 202 H Lactic Acid Calcium Phosphorus Total Creatine Kinase Troponin T Total Protein Albumin Cholesterol LDL Cholesterol Direct Ur Specific [place] Urine WBC (Auto) Urine Creatinine 03/22/19 03/22/19 03/22/19 12:29 17:34 23:16 WBC RBC Hgb Hct MCV MCH Plt Count Lymph % (Auto) Lymph # [place] # Seg Neutrophils % Seg Neuts % (Manual) Lymphocytes % (Manual) Monocytes % (Manual) Seg Neutrophils # Seg Neutrophils # Man Lymphocytes # (Manual) Monocytes # (Manual) Thrombin Time ABG pH ABG pO2 ABG O2 Saturation ABG Base Excess ABG Hemoglobin Sodium Potassium Chloride Carbon Dioxide BUN Creatinine Glucose POC Glucose 234 H 225 H 205 H Lactic Acid Calcium Phosphorus Total Creatine Kinase Troponin T Total Protein Albumin Cholesterol LDL Cholesterol Direct Ur Specific [place] Urine WBC (Auto) Urine Creatinine 03/23/19 03/23/19 03/23/19 03:27 03:50 04:17 WBC RBC Hgb Hct MCV MCH Plt Count Lymph % (Auto) Lymph # [place] # Seg Neutrophils % Seg Neuts % (Manual) Lymphocytes % (Manual) Monocytes % (Manual) Seg Neutrophils # Seg Neutrophils # Man Lymphocytes # (Manual) Monocytes # (Manual) Thrombin Time ABG pH 7.486 H ABG pO2 75.2 L ABG O2 Saturation ABG Base Excess ABG Hemoglobin 9.6 L Sodium Potassium Chloride Carbon Dioxide BUN Creatinine Glucose POC Glucose 113 H 173 H Lactic Acid Calcium Phosphorus Total Creatine Kinase Troponin T Total Protein Albumin Cholesterol LDL Cholesterol Direct Ur Specific [place] Urine WBC (Auto) Urine Creatinine 03/23/19 03/23/19 03/23/19 05:12 12:32 18:20 WBC RBC Hgb Hct MCV MCH Plt Count Lymph % (Auto) Lymph # [place] # Seg Neutrophils % Seg Neuts % (Manual) Lymphocytes % (Manual) Monocytes % (Manual) Seg Neutrophils # Seg Neutrophils # Man Lymphocytes # (Manual) Monocytes # (Manual) Thrombin Time ABG pH ABG pO2 ABG O2 Saturation ABG Base Excess ABG Hemoglobin Sodium Potassium Chloride 107.3 H Carbon Dioxide 21 L BUN 27 H Creatinine 1.6 H Glucose 166 H POC Glucose 212 H 190 H Lactic Acid Calcium Phosphorus Total Creatine Kinase Troponin T Total Protein Albumin Cholesterol LDL Cholesterol Direct Ur Specific [place] Urine WBC (Auto) Urine Creatinine 03/23/19 03/24/19 03/24/19 23:40 05:15 05:24 WBC RBC Hgb Hct MCV MCH Plt Count Lymph % (Auto) Lymph # [place] # Seg Neutrophils % Seg Neuts % (Manual) Lymphocytes % (Manual) Monocytes % (Manual) Seg Neutrophils # Seg Neutrophils # Man Lymphocytes # (Manual) Monocytes # (Manual) Thrombin Time ABG pH ABG pO2 ABG O2 Saturation ABG Base Excess ABG Hemoglobin Sodium Potassium Chloride Carbon Dioxide 21 L BUN 28 H Creatinine Glucose 139 H POC Glucose 172 H 128 H Lactic Acid Calcium Phosphorus Total Creatine Kinase Troponin T Total Protein Albumin Cholesterol LDL Cholesterol Direct Ur Specific [place] Urine WBC (Auto) Urine Creatinine 03/24/19 03/24/19 03/24/19 12:21 17:16 23:27 WBC RBC Hgb Hct MCV MCH Plt Count Lymph % (Auto) Lymph # [place] # Seg Neutrophils % Seg Neuts % (Manual) Lymphocytes % (Manual) Monocytes % (Manual) Seg Neutrophils # Seg Neutrophils # Man Lymphocytes # (Manual) Monocytes # (Manual) Thrombin Time ABG pH ABG pO2 ABG O2 Saturation ABG Base Excess ABG Hemoglobin Sodium Potassium Chloride Carbon Dioxide BUN Creatinine Glucose POC Glucose 213 H 200 H 189 H Lactic Acid Calcium Phosphorus Total Creatine Kinase Troponin T Total Protein Albumin Cholesterol LDL Cholesterol Direct Ur Specific [place] Urine WBC (Auto) Urine Creatinine 03/25/19 03/25/19 03/25/19 01:57 04:23 05:24 WBC RBC Hgb Hct MCV MCH Plt Count Lymph % (Auto) Lymph # [place] # Seg Neutrophils % Seg Neuts % (Manual) Lymphocytes % (Manual) Monocytes % (Manual) Seg Neutrophils # Seg Neutrophils # Man Lymphocytes # (Manual) Monocytes # (Manual) Thrombin Time ABG pH 7.470 H ABG pO2 73.5 L ABG O2 Saturation ABG Base Excess ABG Hemoglobin 7.5 L Sodium 134 L Potassium Chloride Carbon Dioxide 21 L BUN 28 H Creatinine Glucose 179 H POC Glucose 198 H Lactic Acid Calcium 8.3 L Phosphorus Total Creatine Kinase Troponin T Total Protein Albumin Cholesterol LDL Cholesterol Direct Ur Specific [place] Urine WBC (Auto) Urine Creatinine 03/25/19 03/25/19 03/25/19 12:23 17:31 23:59 WBC RBC Hgb Hct MCV MCH Plt Count Lymph % (Auto) Lymph # [place] # Seg Neutrophils % Seg Neuts % (Manual) Lymphocytes % (Manual) Monocytes % (Manual) Seg Neutrophils # Seg Neutrophils # Man Lymphocytes # (Manual) Monocytes # (Manual) Thrombin Time ABG pH ABG pO2 ABG O2 Saturation ABG Base Excess ABG Hemoglobin Sodium Potassium Chloride Carbon Dioxide BUN Creatinine Glucose POC Glucose 184 H 181 H 198 H Lactic Acid Calcium Phosphorus Total Creatine Kinase Troponin T Total Protein Albumin Cholesterol LDL Cholesterol Direct Ur Specific [place] Urine WBC (Auto) Urine Creatinine 03/26/19 03/26/19 03/26/19 04:49 04:49 05:44 WBC 12.4 H RBC 3.47 L Hgb 9.6 L Hct 28.6 L MCV 82 L MCH Plt Count Lymph % (Auto) 6.3 L Lymph # 0.8 L [place] # Seg Neutrophils % 88.2 H Seg Neuts % (Manual) Lymphocytes % (Manual) Monocytes % (Manual) Seg Neutrophils # 10.9 H Seg Neutrophils # Man Lymphocytes # (Manual) Monocytes # (Manual) Thrombin Time ABG pH ABG pO2 ABG O2 Saturation ABG Base Excess ABG Hemoglobin Sodium 132 L Potassium Chloride 96.8 L Carbon Dioxide 21 L BUN 29 H Creatinine Glucose 225 H POC Glucose 219 H Lactic Acid Calcium Phosphorus Total Creatine Kinase Troponin T Total Protein Albumin Cholesterol LDL Cholesterol Direct Ur Specific [place] Urine WBC (Auto) Urine Creatinine
--- NOTE | 2019-03-26 11:36 | Progress Note ---
Assessment and Plan Severe Sepsis CRISTÓBAL Acidosis Acute respiratory failure with hypoxia HLD (hyperlipidemia) DM type 2 Acute onset seizure Acute encephalopathy (Toxic/Met) Hypophosphatemia (AMS is a significant rate limiting step to safe extubation currently) - begin Provigil - begin Lantus 5 units sq q24h - Acyclovir stopped - place scopolamine patch for secretion control - continue bronchodilators with pulmonary hygiene per RT - continue daily SAT's and SBT assessment as tolerated in am - continue to wean supplemental oxygen for target O2 sat's > 90% acutely - VAP bundle addressed - continue lung protective strategies - wean per pulmonary driven protocols otherwise - continue empiric broad spectrum coverage per ID recommendations - continue set rate on MVS at 12/min - enteral nutrition at goal rate as tolerated - neurology evaluation ongoing (AED's per neuro) - accuchecks with glycemic control per SSI (While critically ill target blood glucose of 140-180 mg/dL; avoid hypoglycemia) - prn analgesia per CPOT score - Maintenance of sleep-wake cycle, avoid delirium - G.I. & VTE prophylaxis - PT/OT/ROM exercises - continue mobility protocols for pressure ulcer prophylaxis - Monitor hemodynamics closely - continue other care per attending / other food consultant's .... re-evaluate in am & prn CONDITION: CRITICAL PROGNOSIS: GUARDED CODE STATUS: FULL CODE The high probability of a clinically significant, sudden or life-threatening deterioration of the [respiratory, cardiovascular & neurologic] system(s) required my full and direct attention, intervention and personal management. The aggregate critical care time was [35] minutes without overlap. Time includes spent on; [x] Data Review and interpretation [x] Patient assessment and monitoring of vital signs [x] Documentation [x] Medication orders and management Subjective Date of service: 03/26/19 Principal diagnosis: Severe Sepsis; CRISTÓBAL; Ac hypoxemic resp failure; DM II; Seizures; AMS Interval history: Patient is seen today for: Severe Sepsis; CRISTÓBAL; Acidosis; Acute hypoxemic respiratory failure; HLD; DM type 2; Acute onset seizure; Acute encephalopathy (Toxic/Met) Seen and examined at bedside; 24hour events reviewed; nursing and respiratory care staff consulted; no adverse overnight events reported to me; remains on MVS; still with AMS; HSV PCR back and negative; secretions moderate to large and blood glucose running a little high Objective Vital Signs - 12hr 03/26/19 03/26/19 03/26/19 00:00 00:17 00:30 Temperature 99.6 F Pulse Rate 120 H 129 H 127 H Pulse Rate [ Bilateral Throughout] Pulse Rate [ 130 H From Monitor] Respiratory 29 H 26 H Rate Respiratory Rate [Bilateral Throughout] Blood Pressure 150/60 182/62 182/62 O2 Sat by Pulse 96 96 96 Oximetry 03/26/19 03/26/19 03/26/19 00:38 01:00 01:30 Temperature Pulse Rate 124 H 130 H 143 H Pulse Rate [ Bilateral Throughout] Pulse Rate [ From Monitor] Respiratory 26 H 34 H Rate Respiratory Rate [Bilateral Throughout] Blood Pressure 176/71 182/62 143/68 O2 Sat by Pulse 95 96 Oximetry 03/26/19 03/26/19 03/26/19 01:53 02:00 02:30 Temperature Pulse Rate 131 H 125 H Pulse Rate [ 136 H Bilateral Throughout] Pulse Rate [ From Monitor] Respiratory 31 H 32 H Rate Respiratory 34 H Rate [Bilateral Throughout] Blood Pressure 162/69 148/83 O2 Sat by Pulse 97 98 Oximetry 03/26/19 03/26/19 03/26/19 03:00 03:30 03:47 Temperature Pulse Rate 119 H 113 H 113 H Pulse Rate [ Bilateral Throughout] Pulse Rate [ From Monitor] Respiratory 31 H 30 H Rate Respiratory Rate [Bilateral Throughout] Blood Pressure 148/83 127/55 135/59 O2 Sat by Pulse 97 98 95 Oximetry 03/26/19 03/26/19 03/26/19 03:48 04:00 04:30 Temperature 101.7 F H Pulse Rate 113 H 109 H Pulse Rate [ Bilateral Throughout] Pulse Rate [ 107 H From Monitor] Respiratory 29 H 27 H Rate Respiratory Rate [Bilateral Throughout] Blood Pressure 135/59 126/54 O2 Sat by Pulse 95 96 Oximetry 03/26/19 03/26/19 03/26/19 05:00 05:30 06:00 Temperature 99.4 F Pulse Rate 110 H 110 H 109 H Pulse Rate [ Bilateral Throughout] Pulse Rate [ From Monitor] Respiratory 28 H 27 H 35 H Rate Respiratory Rate [Bilateral Throughout] Blood Pressure 119/50 129/53 136/58 O2 Sat by Pulse 97 98 97 Oximetry 03/26/19 03/26/19 03/26/19 06:30 07:00 07:30 Temperature Pulse Rate 105 H 104 H 104 H Pulse Rate [ Bilateral Throughout] Pulse Rate [ From Monitor] Respiratory 24 25 H 24 Rate Respiratory Rate [Bilateral Throughout] Blood Pressure 146/62 123/54 120/58 O2 Sat by Pulse 98 98 98 Oximetry 03/26/19 03/26/19 03/26/19 07:40 08:00 08:28 Temperature Pulse Rate 110 H 104 H 110 H Pulse Rate [ Bilateral Throughout] Pulse Rate [ 104 H From Monitor] Respiratory 22 22 Rate Respiratory Rate [Bilateral Throughout] Blood Pressure 109/61 O2 Sat by Pulse 96 98 Oximetry 03/26/19 03/26/19 03/26/19 08:30 09:01 09:30 Temperature Pulse Rate 107 H 110 H 103 H Pulse Rate [ Bilateral Throughout] Pulse Rate [ From Monitor] Respiratory 23 26 H 23 Rate Respiratory Rate [Bilateral Throughout] Blood Pressure 120/58 124/61 124/55 O2 Sat by Pulse 97 97 97 Oximetry 03/26/19 03/26/19 03/26/19 10:00 10:30 10:45 Temperature Pulse Rate 104 H 108 H 98 H Pulse Rate [ Bilateral Throughout] Pulse Rate [ From Monitor] Respiratory 24 23 20 Rate Respiratory Rate [Bilateral Throughout] Blood Pressure 112/53 121/63 O2 Sat by Pulse 96 95 95 Oximetry Constitutional: no acute distress, other (elderly looking CM nornocephalic riding set rate on MVS) Eyes: non-icteric ENT: oropharynx moist, other (ETT 23 cm MARILYN) Neck: supple, no lymphadenopathy, no JVD Effort: mildly labored Ascultation: Bilateral: diminished breath sounds, rhonchi Percussion: Bilateral: not dull Cardiovascular: regular rate and rhythm Gastrointestinal: normoactive bowel sounds, soft, non-tender, non-distended Integumentary: normal Extremities: no cyanosis, no edema, pink and warm, pulses normal Neurologic: unable to assess Psychiatric: other (unable to assess re: AMS) CBC and BMP: 03/26/19 04:49 03/26/19 04:49 ABG, PT/INR, D-dimer: ABG ABG pH 7.470 pH Units (7.350-7.450) H 03/25/19 01:57 ABG pCO2 34.2 mm Hg 03/25/19 01:57 ABG pO2 73.5 mm Hg (80.0-90.0) L 03/25/19 01:57 ABG O2 Saturation 97.1 % (95.0-99.0) 03/25/19 01:57 PT/INR, D-dimer PT 14.4 Sec. (12.2-14.9) 03/18/19 14:17 INR 1.11 (0.87-1.13) 03/18/19 14:17 Abnormal lab findings: Abnormal Labs 03/18/19 03/18/19 03/18/19 14:17 14:17 14:17 WBC 38.1 H RBC Hgb Hct MCV 83 L MCH 27 L Plt Count 740 H Lymph % (Auto) Lymph # [place] # Seg Neutrophils % Seg Neuts % (Manual) 93.0 H Lymphocytes % (Manual) 2.5 L Monocytes % (Manual) Seg Neutrophils # Seg Neutrophils # Man 35.4 H Lymphocytes # (Manual) 1.0 L Monocytes # (Manual) 1.5 H Thrombin Time 14.7 L ABG pH ABG pO2 ABG O2 Saturation ABG Base Excess ABG Hemoglobin Sodium Potassium Chloride 94.9 L Carbon Dioxide 20 L BUN 34 H Creatinine 2.7 H Glucose 244 H POC Glucose Lactic Acid Calcium 10.6 H Phosphorus Total Creatine Kinase Troponin T 0.297 H* Total Protein Albumin Cholesterol 264 H LDL Cholesterol Direct 182 H Ur Specific [place] Urine WBC (Auto) Urine Creatinine 03/18/19 03/18/19 03/18/19 15:33 15:33 17:55 WBC RBC Hgb Hct MCV MCH Plt Count Lymph % (Auto) Lymph # [place] # Seg Neutrophils % Seg Neuts % (Manual) Lymphocytes % (Manual) Monocytes % (Manual) Seg Neutrophils # Seg Neutrophils # Man Lymphocytes # (Manual) Monocytes # (Manual) Thrombin Time ABG pH ABG pO2 ABG O2 Saturation ABG Base Excess ABG Hemoglobin Sodium Potassium Chloride Carbon Dioxide BUN Creatinine Glucose POC Glucose Lactic Acid 2.70 H* 3.00 H* Calcium Phosphorus Total Creatine Kinase 2896 H Troponin T Total Protein Albumin Cholesterol LDL Cholesterol Direct Ur Specific [place] Urine WBC (Auto) Urine Creatinine 03/18/19 03/18/19 03/18/19 20:22 Unknown Unknown WBC RBC Hgb Hct MCV MCH Plt Count Lymph % (Auto) Lymph # [place] # Seg Neutrophils % Seg Neuts % (Manual) Lymphocytes % (Manual) Monocytes % (Manual) Seg Neutrophils # Seg Neutrophils # Man Lymphocytes # (Manual) Monocytes # (Manual) Thrombin Time ABG pH ABG pO2 183.5 H ABG O2 Saturation 99.2 H ABG Base Excess ABG Hemoglobin 12.7 L Sodium Potassium Chloride Carbon Dioxide BUN Creatinine Glucose POC Glucose Lactic Acid 3.00 H* Calcium Phosphorus Total Creatine Kinase Troponin T Total Protein Albumin Cholesterol LDL Cholesterol Direct Ur Specific [place] 1.046 H Urine WBC (Auto) 23.0 H Urine Creatinine 03/19/19 03/19/19 03/19/19 01:38 02:56 02:56 WBC 25.4 H RBC Hgb 11.3 L Hct 34.1 L D MCV 83 L MCH 27 L Plt Count 496 H Lymph % (Auto) Lymph # [place] # Seg Neutrophils % Seg Neuts % (Manual) 90.0 H Lymphocytes % (Manual) 3.0 L Monocytes % (Manual) Seg Neutrophils # Seg Neutrophils # Man 22.9 H Lymphocytes # (Manual) 0.8 L Monocytes # (Manual) 1.8 H Thrombin Time ABG pH ABG pO2 ABG O2 Saturation ABG Base Excess ABG Hemoglobin Sodium Potassium Chloride Carbon Dioxide 20 L BUN 34 H Creatinine 2.5 H Glucose 208 H POC Glucose Lactic Acid Calcium Phosphorus Total Creatine Kinase Troponin T Total Protein 5.9 L Albumin 2.9 L Cholesterol LDL Cholesterol Direct Ur Specific [place] Urine WBC (Auto) Urine Creatinine 142.9 H 03/19/19 03/19/19 03/19/19 05:12 14:39 23:08 WBC RBC Hgb Hct MCV MCH Plt Count Lymph % (Auto) Lymph # [place] # Seg Neutrophils % Seg Neuts % (Manual) Lymphocytes % (Manual) Monocytes % (Manual) Seg Neutrophils # Seg Neutrophils # Man Lymphocytes # (Manual) Monocytes # (Manual) Thrombin Time ABG pH ABG pO2 201.8 H ABG O2 Saturation 99.3 H ABG Base Excess -2.8 L ABG Hemoglobin Sodium Potassium Chloride Carbon Dioxide BUN Creatinine Glucose POC Glucose 185 H Lactic Acid Calcium Phosphorus Total Creatine Kinase Troponin T 0.200 H* D Total Protein Albumin Cholesterol LDL Cholesterol Direct Ur Specific [place] Urine WBC (Auto) Urine Creatinine 03/20/19 03/20/19 03/20/19 00:12 03:44 05:19 WBC RBC Hgb Hct MCV MCH Plt Count Lymph % (Auto) Lymph # [place] # Seg Neutrophils % Seg Neuts % (Manual) Lymphocytes % (Manual) Monocytes % (Manual) Seg Neutrophils # Seg Neutrophils # Man Lymphocytes # (Manual) Monocytes # (Manual) Thrombin Time ABG pH ABG pO2 122.8 H ABG O2 Saturation ABG Base Excess -3.0 L ABG Hemoglobin 8.9 L Sodium Potassium Chloride Carbon Dioxide BUN Creatinine Glucose POC Glucose 193 H 202 H Lactic Acid Calcium Phosphorus Total Creatine Kinase Troponin T Total Protein Albumin Cholesterol LDL Cholesterol Direct Ur Specific [place] Urine WBC (Auto) Urine Creatinine 03/20/19 03/20/19 03/20/19 05:26 05:26 05:26 WBC 19.5 H RBC Hgb 10.8 L Hct 33.0 L MCV 82 L MCH 27 L Plt Count Lymph % (Auto) 5.4 L Lymph # 1.1 L [place] # 1.4 H Seg Neutrophils % 86.8 H Seg Neuts % (Manual) Lymphocytes % (Manual) Monocytes % (Manual) Seg Neutrophils # 16.9 H Seg Neutrophils # Man Lymphocytes # (Manual) Monocytes # (Manual) Thrombin Time ABG pH ABG pO2 ABG O2 Saturation ABG Base Excess ABG Hemoglobin Sodium Potassium Chloride 110.5 H Carbon Dioxide 17 L BUN 41 H Creatinine 2.6 H Glucose 199 H POC Glucose Lactic Acid Calcium Phosphorus Total Creatine Kinase 396 H Troponin T 0.191 H* Total Protein Albumin Cholesterol LDL Cholesterol Direct Ur Specific [place] Urine WBC (Auto) Urine Creatinine 03/20/19 03/20/19 03/20/19 11:33 15:23 18:28 WBC RBC Hgb Hct MCV MCH Plt Count Lymph % (Auto) Lymph # [place] # Seg Neutrophils % Seg Neuts % (Manual) Lymphocytes % (Manual) Monocytes % (Manual) Seg Neutrophils # Seg Neutrophils # Man Lymphocytes # (Manual) Monocytes # (Manual) Thrombin Time ABG pH ABG pO2 ABG O2 Saturation ABG Base Excess ABG Hemoglobin Sodium Potassium Chloride Carbon Dioxide BUN Creatinine Glucose POC Glucose 196 H 190 H Lactic Acid Calcium Phosphorus Total Creatine Kinase Troponin T 0.214 H* Total Protein Albumin Cholesterol LDL Cholesterol Direct Ur Specific [place] Urine WBC (Auto) Urine Creatinine 03/20/19 03/21/19 03/21/19 23:14 03:29 04:07 WBC RBC Hgb Hct MCV MCH Plt Count Lymph % (Auto) Lymph # [place] # Seg Neutrophils % Seg Neuts % (Manual) Lymphocytes % (Manual) Monocytes % (Manual) Seg Neutrophils # Seg Neutrophils # Man Lymphocytes # (Manual) Monocytes # (Manual) Thrombin Time ABG pH 7.483 H ABG pO2 97.5 H ABG O2 Saturation ABG Base Excess ABG Hemoglobin 8.5 L Sodium 146 H Potassium 3.1 L D Chloride 109.8 H Carbon Dioxide BUN 35 H Creatinine 1.9 H Glucose 200 H POC Glucose 190 H Lactic Acid Calcium Phosphorus 1.80 L Total Creatine Kinase Troponin T Total Protein Albumin Cholesterol LDL Cholesterol Direct Ur Specific [place] Urine WBC (Auto) Urine Creatinine 03/21/19 03/21/19 03/21/19 05:22 11:52 18:06 WBC RBC Hgb Hct MCV MCH Plt Count Lymph % (Auto) Lymph # [place] # Seg Neutrophils % Seg Neuts % (Manual) Lymphocytes % (Manual) Monocytes % (Manual) Seg Neutrophils # Seg Neutrophils # Man Lymphocytes # (Manual) Monocytes # (Manual) Thrombin Time ABG pH ABG pO2 ABG O2 Saturation ABG Base Excess ABG Hemoglobin Sodium Potassium Chloride Carbon Dioxide BUN Creatinine Glucose POC Glucose 189 H 236 H 164 H Lactic Acid Calcium Phosphorus Total Creatine Kinase Troponin T Total Protein Albumin Cholesterol LDL Cholesterol Direct Ur Specific [place] Urine WBC (Auto) Urine Creatinine 03/21/19 03/22/19 03/22/19 23:36 04:47 04:47 WBC RBC 3.62 L Hgb 10.1 L Hct 29.9 L MCV 83 L MCH Plt Count Lymph % (Auto) Lymph # [place] # Seg Neutrophils % Seg Neuts % (Manual) 83.0 H Lymphocytes % (Manual) 8.0 L Monocytes % (Manual) 8.0 H Seg Neutrophils # Seg Neutrophils # Man 8.8 H Lymphocytes # (Manual) 0.8 L Monocytes # (Manual) Thrombin Time ABG pH ABG pO2 ABG O2 Saturation ABG Base Excess ABG Hemoglobin Sodium Potassium Chloride 107.8 H Carbon Dioxide 19 L BUN 28 H Creatinine 1.6 H Glucose 198 H POC Glucose 211 H Lactic Acid Calcium Phosphorus 2.40 L D Total Creatine Kinase Troponin T Total Protein Albumin Cholesterol LDL Cholesterol Direct Ur Specific [place] Urine WBC (Auto) Urine Creatinine 03/22/19 03/22/19 03/22/19 05:20 05:29 10:10 WBC RBC Hgb Hct MCV MCH Plt Count Lymph % (Auto) Lymph # [place] # Seg Neutrophils % Seg Neuts % (Manual) Lymphocytes % (Manual) Monocytes % (Manual) Seg Neutrophils # Seg Neutrophils # Man Lymphocytes # (Manual) Monocytes # (Manual) Thrombin Time ABG pH 7.481 H 7.483 H ABG pO2 74.6 L 79.4 L ABG O2 Saturation ABG Base Excess ABG Hemoglobin 9.7 L 9.2 L Sodium Potassium Chloride Carbon Dioxide BUN Creatinine Glucose POC Glucose 202 H Lactic Acid Calcium Phosphorus Total Creatine Kinase Troponin T Total Protein Albumin Cholesterol LDL Cholesterol Direct Ur Specific [place] Urine WBC (Auto) Urine Creatinine 03/22/19 03/22/19 03/22/19 12:29 17:34 23:16 WBC RBC Hgb Hct MCV MCH Plt Count Lymph % (Auto) Lymph # [place] # Seg Neutrophils % Seg Neuts % (Manual) Lymphocytes % (Manual) Monocytes % (Manual) Seg Neutrophils # Seg Neutrophils # Man Lymphocytes # (Manual) Monocytes # (Manual) Thrombin Time ABG pH ABG pO2 ABG O2 Saturation ABG Base Excess ABG Hemoglobin Sodium Potassium Chloride Carbon Dioxide BUN Creatinine Glucose POC Glucose 234 H 225 H 205 H Lactic Acid Calcium Phosphorus Total Creatine Kinase Troponin T Total Protein Albumin Cholesterol LDL Cholesterol Direct Ur Specific [place] Urine WBC (Auto) Urine Creatinine 03/23/19 03/23/19 03/23/19 03:27 03:50 04:17 WBC RBC Hgb Hct MCV MCH Plt Count Lymph % (Auto) Lymph # [place] # Seg Neutrophils % Seg Neuts % (Manual) Lymphocytes % (Manual) Monocytes % (Manual) Seg Neutrophils # Seg Neutrophils # Man Lymphocytes # (Manual) Monocytes # (Manual) Thrombin Time ABG pH 7.486 H ABG pO2 75.2 L ABG O2 Saturation ABG Base Excess ABG Hemoglobin 9.6 L Sodium Potassium Chloride Carbon Dioxide BUN Creatinine Glucose POC Glucose 113 H 173 H Lactic Acid Calcium Phosphorus Total Creatine Kinase Troponin T Total Protein Albumin Cholesterol LDL Cholesterol Direct Ur Specific [place] Urine WBC (Auto) Urine Creatinine 03/23/19 03/23/19 03/23/19 05:12 12:32 18:20 WBC RBC Hgb Hct MCV MCH Plt Count Lymph % (Auto) Lymph # [place] # Seg Neutrophils % Seg Neuts % (Manual) Lymphocytes % (Manual) Monocytes % (Manual) Seg Neutrophils # Seg Neutrophils # Man Lymphocytes # (Manual) Monocytes # (Manual) Thrombin Time ABG pH ABG pO2 ABG O2 Saturation ABG Base Excess ABG Hemoglobin Sodium Potassium Chloride 107.3 H Carbon Dioxide 21 L BUN 27 H Creatinine 1.6 H Glucose 166 H POC Glucose 212 H 190 H Lactic Acid Calcium Phosphorus Total Creatine Kinase Troponin T Total Protein Albumin Cholesterol LDL Cholesterol Direct Ur Specific [place] Urine WBC (Auto) Urine Creatinine 03/23/19 03/24/19 03/24/19 23:40 05:15 05:24 WBC RBC Hgb Hct MCV MCH Plt Count Lymph % (Auto) Lymph # [place] # Seg Neutrophils % Seg Neuts % (Manual) Lymphocytes % (Manual) Monocytes % (Manual) Seg Neutrophils # Seg Neutrophils # Man Lymphocytes # (Manual) Monocytes # (Manual) Thrombin Time ABG pH ABG pO2 ABG O2 Saturation ABG Base Excess ABG Hemoglobin Sodium Potassium Chloride Carbon Dioxide 21 L BUN 28 H Creatinine Glucose 139 H POC Glucose 172 H 128 H Lactic Acid Calcium Phosphorus Total Creatine Kinase Troponin T Total Protein Albumin Cholesterol LDL Cholesterol Direct Ur Specific [place] Urine WBC (Auto) Urine Creatinine 03/24/19 03/24/19 03/24/19 12:21 17:16 23:27 WBC RBC Hgb Hct MCV MCH Plt Count Lymph % (Auto) Lymph # [place] # Seg Neutrophils % Seg Neuts % (Manual) Lymphocytes % (Manual) Monocytes % (Manual) Seg Neutrophils # Seg Neutrophils # Man Lymphocytes # (Manual) Monocytes # (Manual) Thrombin Time ABG pH ABG pO2 ABG O2 Saturation ABG Base Excess ABG Hemoglobin Sodium Potassium Chloride Carbon Dioxide BUN Creatinine Glucose POC Glucose 213 H 200 H 189 H Lactic Acid Calcium Phosphorus Total Creatine Kinase Troponin T Total Protein Albumin Cholesterol LDL Cholesterol Direct Ur Specific [place] Urine WBC (Auto) Urine Creatinine 03/25/19 03/25/19 03/25/19 01:57 04:23 05:24 WBC RBC Hgb Hct MCV MCH Plt Count Lymph % (Auto) Lymph # [place] # Seg Neutrophils % Seg Neuts % (Manual) Lymphocytes % (Manual) Monocytes % (Manual) Seg Neutrophils # Seg Neutrophils # Man Lymphocytes # (Manual) Monocytes # (Manual) Thrombin Time ABG pH 7.470 H ABG pO2 73.5 L ABG O2 Saturation ABG Base Excess ABG Hemoglobin 7.5 L Sodium 134 L Potassium Chloride Carbon Dioxide 21 L BUN 28 H Creatinine Glucose 179 H POC Glucose 198 H Lactic Acid Calcium 8.3 L Phosphorus Total Creatine Kinase Troponin T Total Protein Albumin Cholesterol LDL Cholesterol Direct Ur Specific [place] Urine WBC (Auto) Urine Creatinine 03/25/19 03/25/19 03/25/19 12:23 17:31 23:59 WBC RBC Hgb Hct MCV MCH Plt Count Lymph % (Auto) Lymph # [place] # Seg Neutrophils % Seg Neuts % (Manual) Lymphocytes % (Manual) Monocytes % (Manual) Seg Neutrophils # Seg Neutrophils # Man Lymphocytes # (Manual) Monocytes # (Manual) Thrombin Time ABG pH ABG pO2 ABG O2 Saturation ABG Base Excess ABG Hemoglobin Sodium Potassium Chloride Carbon Dioxide BUN Creatinine Glucose POC Glucose 184 H 181 H 198 H Lactic Acid Calcium Phosphorus Total Creatine Kinase Troponin T Total Protein Albumin Cholesterol LDL Cholesterol Direct Ur Specific [place] Urine WBC (Auto) Urine Creatinine 03/26/19 03/26/19 03/26/19 04:49 04:49 05:44 WBC 12.4 H RBC 3.47 L Hgb 9.6 L Hct 28.6 L MCV 82 L MCH Plt Count Lymph % (Auto) 6.3 L Lymph # 0.8 L [place] # Seg Neutrophils % 88.2 H Seg Neuts % (Manual) Lymphocytes % (Manual) Monocytes % (Manual) Seg Neutrophils # 10.9 H Seg Neutrophils # Man Lymphocytes # (Manual) Monocytes # (Manual) Thrombin Time ABG pH ABG pO2 ABG O2 Saturation ABG Base Excess ABG Hemoglobin Sodium 132 L Potassium Chloride 96.8 L Carbon Dioxide 21 L BUN 29 H Creatinine Glucose 225 H POC Glucose 219 H Lactic Acid Calcium Phosphorus Total Creatine Kinase Troponin T Total Protein Albumin Cholesterol LDL Cholesterol Direct Ur Specific [place] Urine WBC (Auto) Urine Creatinine Chest x-ray: image reviewed (no focal infiltrate and improved from 48 hours prior) Allied health notes reviewed: nursing
[2019-03-26] MEDS ORDERED: VANCOMYCIN 1,500 MG in SODIUM CHLORIDE 0.9% 500 ML 500 ML IV ONE (12:11)
--- NOTE | 2019-03-26 12:11 | Progress Note ---
Assessment and Plan Cultures: 03/18/2019 blood culture: No growth 03/18/2019 urine culture: Staph aureus - MSSA (10K-100K) CSF culture: no growth thus far CSF HSV 1,2, VZV and Enterovirus PCRs: negative A/P: 68-year-old male with a past medical history of hypertension, diabetes, obesity admitted after being found down. #New fever: along with diarrhea. #Sepsis with acute encephalopathy: Present with leukocytosis and tachycardia, improving. Possible aseptic meningitis v/s encephalitis v/s reactive from seizures, likely latter #?Meningoencephalitis: CSF with mild pleocytosis, not consistent with acute bacterial meningitis. MRI brain without contrast was unremarkable for acute etiology. CSF HSV 1,2, VZV and Enterovirus PCRs: negative. CSF pleocytosis was probably post-ictal in etiology. #CRISTÓBAL: renally dose antibiotics as appropriate, creatinine improving. #MSSA in urine: Not a common uropathogen. Blood cultures are negative, so bacteremic spillover/renal seeding less likely. TTE images of poor quality. Could also be a skin contaminant. Completed empiric course of abx. Recommendations: - new fever, blood cultures ordered. Etiology not clear. CXR does not show a pneumonia - new diarrhea with rise in WBC, C.diff ordered - started empiric IV Cefepime + Vancomycin Brendon Conklin MD, FACP [facility] ([facility] C: [phone] O: [phone] F: [phone] Subjective Date of service: 03/26/19 Principal diagnosis: Severe Sepsis; CRISTÓBAL; Ac hypoxemic resp failure; DM II; Seizures; AMS Interval history: Patient with new fever. Remains on the vent, unresponsive. Per RN, patient having diarrhea, has rectal tube. Objective - Exam Narrative Exam: Physical Exam: Constitutional: comatose, doesn't follow commands, intubated Head, Ears, Nose: Normocephalic, atraumatic. External ears, nose normal Eyes: Conjunctivae/corneas clear. No icterus. No ptosis. Neck: intubated Oral: intubated Cardiovascular: S1, S2 normal. Respiratory: Good air entry, clear to auscultation bilaterally GI: Soft, non-tender; bowel sounds normal. No peritoneal signs Musculoskeletal: No pedal edema, no cyanosis. Skin: No rash or abscess Hem/Lymphatic: No palpable cervical or supraclavicular nodes. No lymphangitis Psych: no agitation Neurological: comatose, doesn't follow commands, intubated, on vent - Constitutional Vitals: Vital Signs Temp Pulse Resp BP Pulse Ox 99.4 F 98 H 20 121/63 95 03/26/19 05:00 03/26/19 10:45 03/26/19 10:45 03/26/19 10:30 03/26/19 10:45 Temperature -Last 24 Hours Temperature 99.4 F Temperature 101.7 F Temperature 99.6 F Temperature 102.3 F Temperature 99.8 F - Labs CBC & Chem 7: 03/26/19 04:49 03/26/19 04:49 Labs: Abnormal lab results 03/25/19 03/25/19 03/25/19 Range/Units 12:23 17:31 23:59 WBC (4.5-11.0) K/mm3 RBC (3.65-5.03) M/mm3 Hgb (11.8-15.2) gm/dl Hct (35.5-45.6) % MCV (84-94) fl Lymph % (Auto) (13.4-35.0) % Lymph # (1.2-5.4) K/mm3 Seg Neutrophils % (40.0-70.0) % Seg Neutrophils # (1.8-7.7) K/mm3 Sodium (137-145) mmol/L Chloride (98-107) mmol/L Carbon Dioxide (22-30) mmol/L BUN (9-20) mg/dL Glucose (75-100) mg/dL POC Glucose 184 H 181 H 198 H (70-105) 03/26/19 03/26/19 03/26/19 Range/Units 04:49 04:49 05:44 WBC 12.4 H (4.5-11.0) K/mm3 RBC 3.47 L (3.65-5.03) M/mm3 Hgb 9.6 L (11.8-15.2) gm/dl Hct 28.6 L (35.5-45.6) % MCV 82 L (84-94) fl Lymph % (Auto) 6.3 L (13.4-35.0) % Lymph # 0.8 L (1.2-5.4) K/mm3 Seg Neutrophils % 88.2 H (40.0-70.0) % Seg Neutrophils # 10.9 H (1.8-7.7) K/mm3 Sodium 132 L (137-145) mmol/L Chloride 96.8 L (98-107) mmol/L Carbon Dioxide 21 L (22-30) mmol/L BUN 29 H (9-20) mg/dL Glucose 225 H (75-100) mg/dL POC Glucose 219 H (70-105) - Imaging and cardiology Chest x-ray: report reviewed, image reviewed (CXR does not show any pneumonia)
[2019-03-26] MEDS ORDERED: VANCOMYCIN PHARMACY TO DOSE IV SCH (13:00)
--- NOTE | 2019-03-26 13:12 | Progress Note ---
Assessment and Plan 1. Acute kidney injury: Vasomotor CRISTÓBAL in the setting of sepsis. Renal US negative for hydro. Renal function is improving. Continue IV fluids. Monitor renal function. Avoid nephrotoxic agents. Meds dosage based on GFR. 2. FEN: Anion gap metabolic acidosis, 2/2 Lactic acidosis, monitor. Hypernatremia, improved. Monitor lytes. 3. Sepsis. 4. Acute respiratory failure with hypoxia: Intubated on vent. 5. Seizures: Seen by Neuro. 6. DM type 2. 7. Encephalopathy: Multifactorial. Examination: General appearance: well-developed, appears stated age, intubated on vent HEENT: ATNC, DALIA Neck: trachea midline Respiratory: Clear to Auscultation Heart: regular, S1S2, no murmur Gastrointestinal: soft, normoactive bowel sounds, not tenderness, not distended Integumentary: no rash, warm and dry Neurologic: some movement with pain stimuli Musculoskeletal: no edema Subjective Date of service: 03/26/19 Principal diagnosis: Severe Sepsis; CRISTÓBAL; Ac hypoxemic resp failure; DM II; Seizures; AMS Interval history: Patient was seen and examined at the bedside. No family present at bedside. No acute events overnight. Objective - Vital Signs Vital signs: Vital Signs - 12hr 03/26/19 03/26/19 03/26/19 01:30 01:53 02:00 Temperature Pulse Rate 143 H 131 H Pulse Rate [ 136 H Bilateral Throughout] Pulse Rate [ From Monitor] Respiratory 34 H 31 H Rate Respiratory 34 H Rate [Bilateral Throughout] Blood Pressure 143/68 162/69 O2 Sat by Pulse 96 97 Oximetry 03/26/19 03/26/19 03/26/19 02:30 03:00 03:30 Temperature Pulse Rate 125 H 119 H 113 H Pulse Rate [ Bilateral Throughout] Pulse Rate [ From Monitor] Respiratory 32 H 31 H 30 H Rate Respiratory Rate [Bilateral Throughout] Blood Pressure 148/83 148/83 127/55 O2 Sat by Pulse 98 97 98 Oximetry 03/26/19 03/26/19 03/26/19 03:47 03:48 04:00 Temperature 101.7 F H Pulse Rate 113 H 113 H Pulse Rate [ Bilateral Throughout] Pulse Rate [ 107 H From Monitor] Respiratory 29 H Rate Respiratory Rate [Bilateral Throughout] Blood Pressure 135/59 135/59 O2 Sat by Pulse 95 95 Oximetry 01/03/26/19 03/26/19 04:30 05:00 05:30 Temperature 99.4 F Pulse Rate 109 H 110 H 110 H Pulse Rate [ Bilateral Throughout] Pulse Rate [ From Monitor] Respiratory 27 H 28 H 27 H Rate Respiratory Rate [Bilateral Throughout] Blood Pressure 126/54 119/50 129/53 O2 Sat by Pulse 96 97 98 Oximetry 03/26/19 03/26/19 03/26/19 06:00 06:30 07:00 Temperature Pulse Rate 109 H 105 H 104 H Pulse Rate [ Bilateral Throughout] Pulse Rate [ From Monitor] Respiratory 35 H 24 25 H Rate Respiratory Rate [Bilateral Throughout] Blood Pressure 136/58 146/62 123/54 O2 Sat by Pulse 97 98 98 Oximetry 03/26/19 03/26/19 03/26/19 07:30 07:40 08:00 Temperature Pulse Rate 104 H 110 H 104 H Pulse Rate [ Bilateral Throughout] Pulse Rate [ 104 H From Monitor] Respiratory 24 22 22 Rate Respiratory Rate [Bilateral Throughout] Blood Pressure 120/58 109/61 O2 Sat by Pulse 98 96 98 Oximetry 03/26/19 03/26/19 03/26/19 08:28 08:30 09:01 Temperature Pulse Rate 110 H 107 H 110 H Pulse Rate [ Bilateral Throughout] Pulse Rate [ From Monitor] Respiratory 23 26 H Rate Respiratory Rate [Bilateral Throughout] Blood Pressure 120/58 124/61 O2 Sat by Pulse 97 97 Oximetry 03/26/19 03/26/19 03/26/19 09:30 10:00 10:30 Temperature Pulse Rate 103 H 104 H 108 H Pulse Rate [ Bilateral Throughout] Pulse Rate [ From Monitor] Respiratory 23 24 23 Rate Respiratory Rate [Bilateral Throughout] Blood Pressure 124/55 112/53 121/63 O2 Sat by Pulse 97 96 95 Oximetry 03/26/19 10:45 Temperature Pulse Rate 98 H Pulse Rate [ Bilateral Throughout] Pulse Rate [ From Monitor] Respiratory 20 Rate Respiratory Rate [Bilateral Throughout] Blood Pressure O2 Sat by Pulse 95 Oximetry - Lab 03/26/19 04:49 03/26/19 04:49 Most recent lab results ABG pH 7.470 pH Units (7.350-7.450) H 03/25/19 01:57 ABG pCO2 34.2 mm Hg 03/25/19 01:57 ABG pO2 73.5 mm Hg (80.0-90.0) L 03/25/19 01:57 ABG HCO3 24.4 mmol/L (20.0-26.0) 03/25/19 01:57 ABG O2 Saturation 97.1 % (95.0-99.0) 03/25/19 01:57 Calcium 8.5 mg/dL (8.4-10.2) 03/26/19 04:49 Phosphorus 3.10 mg/dL (2.5-4.5) 03/25/19 04:23 Magnesium 1.90 mg/dL (1.7-2.3) 03/21/19 04:07 Urine Creatinine 142.9 mg/dL (0.1-20.0) H 03/19/19 01:38 Urine Sodium 14 mmol/L 03/19/19 01:38 Medications & Allergies - Medications Allergies/Adverse Reactions: Allergies No Known Allergies Allergy (Verified 01/21/16 10:17) Home Medications: Home Medications Medication Instructions Recorded Confirmed Last Taken Type Acetaminophen [Acetaminophen TAB] 2 tab PO Q4H PRN #15 tablet 02/10/19 03/19/19 Unknown Rx Aspirin 325 mg PO QDAY #30 tablet 02/10/19 03/19/19 Unknown Rx Magnesium Hydroxide [Milk of 30 ml PO Q4H PRN #15 oral.liqd 02/10/19 03/19/19 Unknown Rx Magnesia] OLANzapine [ZyPREXA] 2.5 mg PO QDAY #30 tablet 02/10/19 03/19/19 Unknown Rx Pantoprazole [Protonix TAB] 20 mg PO QDAY #30 tablet. 02/10/19 03/19/19 Unknown Rx Active Medications: Generic Name Dose Route Start Last Admin Trade Name Freq PRN Reason Stop Dose Admin Acetaminophen 650 mg 03/21/19 10:29 03/26/19 01:37 Tylenol PO 650 mg Q4H PRN Administration Pain MILD(1-3)/Fever >100.5/ROSA Lipase/Protease/Amylase 1 each 03/19/19 15:17 Pancreazkenneth Huggins 10,500 Unit FEEDTUBE PRN PRN For Clogged Feeding Tube Clonidine HCl 0.2 mg 03/22/19 12:00 03/22/19 12:39 Catapres-Tts Patch TD 0.2 mg Raymond MARTHA Administration Dextrose 0 ml 03/20/19 02:38 D50w (25gm) Syringe IV Q30MIN PRN Hypoglycemia Protocol Famotidine 20 mg 03/23/19 10:00 03/26/19 09:03 Pepcid PO 20 mg BID MARTHA Administration Heparin Sodium (Porcine) 5,000 unit 03/18/19 22:00 03/26/19 09:03 Heparin SUB-Q 5,000 unit Q12HR MARTHA Administration Hydralazine HCl 10 mg 03/22/19 02:51 03/26/19 00:38 Apresoline IV 10 mg Q4H PRN Administration Hypertension Hydrophilic Ointment 1 applic 03/21/19 17:45 Vaseline Lip Therapy TP Q2HR PRN Dry Lips Vancomycin HCl 1,500 mg/ 530 mls @ 333 mls/hr 03/26/19 12:11 Sodium Chloride IV 03/26/19 13:47 ONCE ONE Protocol Cefepime HCl 1 gm in 100 mls @ 200 mls/hr 03/26/19 14:00 Cefepime/Ns 1 Gm/100 Ml IV Q8HR MARTHA Protocol Insulin Human Lispro 0 unit 03/20/19 06:00 03/26/19 06:23 Humalog SUB-Q 3 unit Q6HR MARTHA Administration Protocol Levalbuterol HCl 0.63 mg 03/26/19 01:20 Xopenex IH Q8HRT PRN Shortness Of Breath Levetiracetam 750 mg 03/24/19 10:00 03/26/19 09:03 Keppra PO 750 mg BID MARTHA Administration Multi-Ingred Cream/Lotion/Oil/Oint 1 applic 03/21/19 17:45 Artificial Tears Ophth Oint OU Q4HR PRN Dry Eye(s) Simple Syrup 15 ml 03/19/19 15:17 Simple Syrup FEEDTUBE PRN PRN Hypoglycemia Simple Syrup 30 ml 03/19/19 15:17 Simple Syrup FEEDTUBE PRN PRN Hypoglycemia Sodium Bicarbonate 325 mg 03/19/19 15:17 Sodium Bicarbonate FEEDTUBE PRN PRN For Clogged Feeding Tube Sodium Chloride 10 ml 03/18/19 22:00 03/26/19 09:04 Sodium Chloride Flush Syringe 10 Ml IV 10 ml BID MARTHA Administration Sodium Chloride 10 ml 03/18/19 17:32 Sodium Chloride Flush Syringe 10 Ml IV PRN PRN LINE FLUSH
[2019-03-26] MEDS ORDERED: INSULIN GLARGINE 100 UNITS/ML SUB-Q STA (13:40)
[2019-03-26] MEDS ORDERED: MODAFINIL 100 MG TAB PO STA (13:40)
[2019-03-26] MEDS: SCOPOLAMINE TRANSDERMAL PATCH 72 HR TD SCH (13:55)
[2019-03-26] MEDS ORDERED: CEFEPIME/NS 1 GM/100 ML 1 GM/100 ML BAG IV SCH (14:00)
[2019-03-26] MEDS: CEFEPIME/NS 1 GM/100 ML 1 GM/100 ML BAG IV SCH (15:51)
--- NOTE | 2019-03-26 16:14 | Progress Note ---
Assessment and Plan /new onset diarrhea since 03/25/19 - restarted abx, C.def ordered /Acute encephalopathy likely from SIRS vs CRISTÓBAL Vs underlying seizure monitor clinically. MRI brain w/o any acute change, CSF study negative cont to treat underlying cause, reconsult neurology / SIRS, likely from new onset seizure Sepsis with possible meningitis - ruled out cannot r/o meningitis as presented with seizure, encephalopathy and elevated white count Admited to ICU with Sepsis protocol: IV fluid resuscitation therapy, serial CBC, BMP, lactic acid level, IV abx, ordered Cx negative blood cx report, URINE for MSSA - could be a skin contaminant ordered for LP - placed on Iv coverage for viral and bacterial meningitis, ID consulted s/p LP 03/20/19 - study result not convincing for bacterial meningitis, also negative for viral PCR cont to treat for seizure, wbc trended down, d/aria abx for meningitis / CRISTÓBAL (acute kidney injury): likely vasomotor nephropathy - Cr improving cont IV fluid resuscitation therapy, monitor urine output every shift, strict I' s/O, Nephrology following /hypokalemia, repleted, follow BMP / metabolic Acidosis - due to sepsis vs CRISTÓBAL - resolved IV fluid resuscitation therapy, monitor urine output every shift, s/p IV bicarbonate therapy. / Acute respiratory failure with hypoxia Patient intubated and placed on ventilatory support, daily SBT, sedation holiday, Now on cpap, cont nebs, possible extubation when mental status improves / HLD (hyperlipidemia) TF diet for now, statin therapy as clinically indicated. / DM type 2 - SSI as needed /Acute onset seizure, started on keppra - EEG showed + for seizure, neurology recomsulted /DVT prophylaxis SCD to bilateral lower extremities while in bed, prophylactic heparin. The high probability of a clinically significant, sudden or life threatening deterioration of the [cardiac, pulmonary, renal, neurologic] system(s) required my full and direct attention, intervention and personal management. The aggregate critical care time was [35] minutes. This time is in addition to time spent performing reported procedures but includes the following: [x] Data Review and interpretation [x] Patient assessment and monitoring of vital signs [x] Documentation [x] Medication orders and management Disposition: not medically stable for d/c Subjective Date of service: 03/26/19 Principal diagnosis: Severe Sepsis; CRISTÓBAL; Ac hypoxemic resp failure; DM II; Seizures; AMS Objective - Constitutional Vitals: Vital Signs - 12hr 03/26/19 03/26/19 03/26/19 04:30 05:00 05:30 Temperature 99.4 F Pulse Rate 109 H 110 H 110 H Pulse Rate [ From Monitor] Respiratory 27 H 28 H 27 H Rate Blood Pressure 126/54 119/50 129/53 O2 Sat by Pulse 96 97 98 Oximetry 03/26/19 03/26/19 03/26/19 06:00 06:30 07:00 Temperature Pulse Rate 109 H 105 H 104 H Pulse Rate [ From Monitor] Respiratory 35 H 24 25 H Rate Blood Pressure 136/58 146/62 123/54 O2 Sat by Pulse 97 98 98 Oximetry 03/26/19 03/26/19 03/26/19 07:30 07:40 08:00 Temperature Pulse Rate 104 H 110 H 104 H Pulse Rate [ 104 H From Monitor] Respiratory 24 22 22 Rate Blood Pressure 120/58 109/61 O2 Sat by Pulse 98 96 98 Oximetry 03/26/19 03/26/19 03/26/19 08:28 08:30 09:01 Temperature Pulse Rate 110 H 107 H 110 H Pulse Rate [ From Monitor] Respiratory 23 26 H Rate Blood Pressure 120/58 124/61 O2 Sat by Pulse 97 97 Oximetry 03/26/19 03/26/19 03/26/19 09:30 10:00 10:30 Temperature Pulse Rate 103 H 104 H 108 H Pulse Rate [ From Monitor] Respiratory 23 24 23 Rate Blood Pressure 124/55 112/53 121/63 O2 Sat by Pulse 97 96 95 Oximetry 03/26/19 10:45 Temperature Pulse Rate 98 H Pulse Rate [ From Monitor] Respiratory 20 Rate Blood Pressure O2 Sat by Pulse 95 Oximetry - Labs CBC & Chem 7: 03/26/19 04:49 03/26/19 04:49 Labs: Abnormal lab results 03/25/19 03/25/19 03/26/19 Range/Units 17:31 23:59 04:49 WBC (4.5-11.0) K/mm3 RBC (3.65-5.03) M/mm3 Hgb (11.8-15.2) gm/dl Hct (35.5-45.6) % MCV (84-94) fl Lymph % (Auto) (13.4-35.0) % Lymph # (1.2-5.4) K/mm3 Seg Neutrophils % (40.0-70.0) % Seg Neutrophils # (1.8-7.7) K/mm3 Sodium 132 L (137-145) mmol/L Chloride 96.8 L (98-107) mmol/L Carbon Dioxide 21 L (22-30) mmol/L BUN 29 H (9-20) mg/dL Glucose 225 H (75-100) mg/dL POC Glucose 181 H 198 H (70-105) 03/26/19 03/26/19 03/26/19 Range/Units 04:49 05:44 12:40 WBC 12.4 H (4.5-11.0) K/mm3 RBC 3.47 L (3.65-5.03) M/mm3 Hgb 9.6 L (11.8-15.2) gm/dl Hct 28.6 L (35.5-45.6) % MCV 82 L (84-94) fl Lymph % (Auto) 6.3 L (13.4-35.0) % Lymph # 0.8 L (1.2-5.4) K/mm3 Seg Neutrophils % 88.2 H (40.0-70.0) % Seg Neutrophils # 10.9 H (1.8-7.7) K/mm3 Sodium (137-145) mmol/L Chloride (98-107) mmol/L Carbon Dioxide (22-30) mmol/L BUN (9-20) mg/dL Glucose (75-100) mg/dL POC Glucose 219 H 236 H (70-105)
[2019-03-27] MEDS: INSULIN LISPRO 100 UNIT/ML SUB-Q SCH ×4 (00:32→19:07)
[2019-03-27] MEDS: CEFEPIME/NS 1 GM/100 ML 1 GM/100 ML BAG IV SCH (02:00)
[2019-03-27 05:52] LABS: Calcium 8.4 mg/dL (8.4-10.2)
[2019-03-27] MEDS: ACYCLOVIR IV SCH (08:35)
[2019-03-27] MEDS: SODIUM CHLORIDE 0.9% IV SCH (08:35)
--- NOTE | 2019-03-27 09:14 | Progress Note ---
Assessment and Plan 1. Acute kidney injury: Vasomotor CRISTÓBAL in the setting of sepsis. Renal US negative for hydro. Renal function is improving. Continue IV fluids. Monitor renal function. Avoid nephrotoxic agents. Meds dosage based on GFR. 2. FEN: Anion gap metabolic acidosis, 2/2 Lactic acidosis, monitor. Hypernatremia, improved. Monitor lytes. 3. Sepsis. 4. Acute respiratory failure with hypoxia: Intubated on vent. 5. Seizures: Seen by Neuro. 6. DM type 2. 7. Encephalopathy: Multifactorial. Examination: General appearance: well-developed, appears stated age, intubated on vent HEENT: ATNC, DALIA Neck: trachea midline Respiratory: Clear to Auscultation Heart: regular, S1S2, no murmur Gastrointestinal: soft, normoactive bowel sounds, not tenderness, not distended Integumentary: no rash, warm and dry Neurologic: some movement with pain stimuli Musculoskeletal: no edema Subjective Date of service: 03/27/19 Principal diagnosis: Severe Sepsis; CRISTÓBAL; Ac hypoxemic resp failure; DM II; Seizures; AMS Interval history: Patient was seen and examined at the bedside. No family present at bedside. No acute events overnight. Objective - Vital Signs Vital signs: Vital Signs - 12hr 03/26/19 03/26/19 03/26/19 21:30 22:00 22:31 Temperature Pulse Rate 92 H 89 93 H Pulse Rate [ From Monitor] Respiratory 23 22 21 Rate Blood Pressure 126/51 118/51 116/56 O2 Sat by Pulse 96 97 98 Oximetry 03/26/19 03/26/19 03/26/19 22:50 23:00 23:04 Temperature 99.6 F Pulse Rate 94 H 98 H Pulse Rate [ From Monitor] Respiratory 21 24 Rate Blood Pressure 116/56 128/55 O2 Sat by Pulse 98 97 Oximetry 03/26/19 03/26/19 03/26/19 23:11 23:30 23:36 Temperature Pulse Rate 96 H 96 H 95 H Pulse Rate [ From Monitor] Respiratory 21 22 Rate Blood Pressure 128/55 128/55 128/55 O2 Sat by Pulse 97 96 97 Oximetry 03/27/19 03/27/19 03/27/19 00:00 00:01 00:30 Temperature Pulse Rate 95 H 97 H 93 H Pulse Rate [ 94 H From Monitor] Respiratory 23 24 24 Rate Blood Pressure 124/57 118/60 O2 Sat by Pulse 96 97 97 Oximetry 03/27/19 03/27/19 03/27/19 01:01 01:30 02:01 Temperature Pulse Rate 94 H 98 H 94 H Pulse Rate [ From Monitor] Respiratory 23 23 23 Rate Blood Pressure 112/55 103/61 96/63 O2 Sat by Pulse 97 96 96 Oximetry 03/27/19 03/27/19 03/27/19 02:31 03:00 03:28 Temperature Pulse Rate 93 H 91 H 87 Pulse Rate [ From Monitor] Respiratory 21 21 Rate Blood Pressure 104/53 96/54 96/54 O2 Sat by Pulse 97 97 98 Oximetry 03/27/19 03/27/19 03/27/19 03:29 03:31 04:00 Temperature 99.8 F H Pulse Rate 89 85 Pulse Rate [ 86 From Monitor] Respiratory 29 H 19 Rate Blood Pressure 142/64 115/52 O2 Sat by Pulse 97 97 Oximetry 03/27/19 03/27/19 03/27/19 04:30 05:00 05:30 Temperature Pulse Rate 86 86 87 Pulse Rate [ From Monitor] Respiratory 20 19 21 Rate Blood Pressure 127/55 111/50 123/58 O2 Sat by Pulse 97 97 98 Oximetry 03/27/19 03/27/19 06:00 08:00 Temperature 98.2 F Pulse Rate 87 Pulse Rate [ From Monitor] Respiratory 20 Rate Blood Pressure 113/54 O2 Sat by Pulse 97 Oximetry - Lab 03/26/19 04:49 03/27/19 04:42 Most recent lab results ABG pH 7.470 pH Units (7.350-7.450) H 03/25/19 01:57 ABG pCO2 34.2 mm Hg 03/25/19 01:57 ABG pO2 73.5 mm Hg (80.0-90.0) L 03/25/19 01:57 ABG HCO3 24.4 mmol/L (20.0-26.0) 03/25/19 01:57 ABG O2 Saturation 97.1 % (95.0-99.0) 03/25/19 01:57 Calcium 8.4 mg/dL (8.4-10.2) 03/27/19 04:42 Phosphorus 3.10 mg/dL (2.5-4.5) 03/25/19 04:23 Magnesium 1.90 mg/dL (1.7-2.3) 03/21/19 04:07 Urine Creatinine 142.9 mg/dL (0.1-20.0) H 03/19/19 01:38 Urine Sodium 14 mmol/L 03/19/19 01:38 Medications & Allergies - Medications Allergies/Adverse Reactions: Allergies No Known Allergies Allergy (Verified 01/21/16 10:17) Home Medications: Home Medications Medication Instructions Recorded Confirmed Last Taken Type Acetaminophen [Acetaminophen TAB] 2 tab PO Q4H PRN #15 tablet 02/10/19 03/19/19 Unknown Rx Aspirin 325 mg PO QDAY #30 tablet 02/10/19 03/19/19 Unknown Rx Magnesium Hydroxide [Milk of 30 ml PO Q4H PRN #15 oral.liqd 02/10/19 03/19/19 Unknown Rx Magnesia] OLANzapine [ZyPREXA] 2.5 mg PO QDAY #30 tablet 02/10/19 03/19/19 Unknown Rx Pantoprazole [Protonix TAB] 20 mg PO QDAY #30 tablet. 02/10/19 03/19/19 Unknown Rx Active Medications: Generic Name Dose Route Start Last Admin Trade Name Freq PRN Reason Stop Dose Admin Acetaminophen 650 mg 03/21/19 10:29 03/26/19 01:37 Tylenol PO 650 mg Q4H PRN Administration Pain MILD(1-3)/Fever >100.5/ROSA Lipase/Protease/Amylase 1 each 03/19/19 15:17 Pancreaze 10,500 Unit FEEDTUBE PRN PRN For Clogged Feeding Tube Clonidine HCl 0.2 mg 03/22/19 12:00 03/22/19 12:39 Catapres-Tts Patch TD 0.2 mg Raymond MARTHA Administration Dextrose 0 ml 03/20/19 02:38 D50w (25gm) Syringe IV Q30MIN PRN Hypoglycemia Protocol Famotidine 20 mg 03/23/19 10:00 03/26/19 21:18 Pepcid PO 20 mg BID MARTHA Administration Heparin Sodium (Porcine) 5,000 unit 03/18/19 22:00 03/26/19 21:18 Heparin SUB-Q 5,000 unit Q12HR MARTHA Administration Hydralazine HCl 10 mg 03/22/19 02:51 03/26/19 00:38 Apresoline IV 10 mg Q4H PRN Administration Hypertension Hydrophilic Ointment 1 applic 03/21/19 17:45 Vaseline Lip Therapy TP Q2HR PRN Dry Lips Vancomycin HCl 1 gm in 250 mls @ 167.007 mls/hr 03/27/19 12:00 Vancomycin/Ns 1 Gm/250 Ml IV Q24H MARTHA Cefepime HCl 1 gm in 100 mls @ 200 mls/hr 03/27/19 14:00 Cefepime/Ns 1 Gm/100 Ml IV Q8HR MARTHA Protocol Insulin Human Lispro 0 unit 03/20/19 06:00 03/27/19 05:40 Humalog SUB-Q 2 unit Q6HR MARTHA Administration Protocol Levalbuterol HCl 0.63 mg 03/26/19 01:20 Xopenex IH Q8HRT PRN Shortness Of Breath Levetiracetam 750 mg 03/24/19 10:00 03/26/19 21:17 Keppra PO 750 mg BID MARTHA Administration Multi-Ingred Cream/Lotion/Oil/Oint 1 applic 03/21/19 17:45 Artificial Tears Ophth Oint OU Q4HR PRN Dry Eye(s) Scopolamine 1 each 03/26/19 14:00 03/26/19 13:55 Transderm-Scop TD 1 each Q3D MARTHA Administration Simple Syrup 15 ml 03/19/19 15:17 Simple Syrup FEEDTUBE PRN PRN Hypoglycemia Simple Syrup 30 ml 03/19/19 15:17 Simple Syrup FEEDTUBE PRN PRN Hypoglycemia Sodium Bicarbonate 325 mg 03/19/19 15:17 Sodium Bicarbonate FEEDTUBE PRN PRN For Clogged Feeding Tube Sodium Chloride 10 ml 03/18/19 22:00 03/26/19 21:18 Sodium Chloride Flush Syringe 10 Ml IV 10 ml BID MARTHA Administration Sodium Chloride 10 ml 03/18/19 17:32 Sodium Chloride Flush Syringe 10 Ml IV PRN PRN LINE FLUSH
[2019-03-27] MEDS: FAMOTIDINE 20 MG TAB PO SCH ×2 (10:55→22:16)
[2019-03-27] MEDS: HEPARIN 5,000 UNIT/1 ML VIAL SUB-Q SCH ×2 (10:55→22:16)
[2019-03-27] MEDS: levETIRAcetam 500 MG/5 ML ORAL LIQD PO SCH ×2 (10:55→22:15)
--- NOTE | 2019-03-27 12:47 | Progress Note ---
Assessment and Plan Cultures: 03/18/2019 blood culture: No growth 03/18/2019 urine culture: Staph aureus - MSSA (10K-100K) CSF culture: no growth thus far CSF HSV 1,2, VZV and Enterovirus PCRs: negative A/P: 68-year-old male with a past medical history of hypertension, diabetes, obesity admitted after being found down. #New fever, ?from C.difficile infection: patient with diarrhea. Treat with PO Vancomycin #New GPC bacteremia: / bottles, follow up final results. Continue IV Vancomycin for now. #Initial SIRS/sepsis with acute encephalopathy: Possible aseptic meningitis v/s encephalitis v/s reactive from seizures, likely latter. #?Meningoencephalitis: CSF with mild pleocytosis, not consistent with acute bacterial meningitis. MRI brain without contrast was unremarkable for acute e tiology. CSF HSV 1,2, VZV and Enterovirus PCRs: negative. CSF pleocytosis was probably post-ictal in etiology. #CRISTÓBAL: renally dose antibiotics as appropriate, creatinine improving. #MSSA in urine: Not a common uropathogen. Blood cultures are negative, so bacteremic spillover/renal seeding less likely. TTE images of poor quality. Could also be a skin contaminant. Completed empiric course of abx. Recommendations: - Cefepime stopped - PO Vancomycin 125 mg QID started x 10-14 days - Continue IV Vancomycin, follow up blood cultures, if growing Coag negative Staph, would be a contaminant, patient without any indwelling centra lines - recheck CBC in AM Brendon Conklin MD, FACP [facility] ([facility] C: [phone] O: [phone] F: [phone] Subjective Date of service: 03/27/19 Principal diagnosis: Severe Sepsis; CRISTÓBAL; Ac hypoxemic resp failure; DM II; Seizures; AMS Interval history: Fever +. Diarrhea +. Remains on the vent, unresponsive but opens eyes, doesn't follow commands. Blood cultures also turned positive. No indwelling central line. Objective - Exam Narrative Exam: Physical Exam: Constitutional: opens eyes, doesn't follow commands, intubated Head, Ears, Nose: Normocephalic, atraumatic. External ears, nose normal Eyes: Conjunctivae/corneas clear. No icterus. No ptosis. Neck: intubated Oral: intubated Cardiovascular: S1, S2 normal. Respiratory: Good air entry, clear to auscultation bilaterally GI: Soft, non-tender; bowel sounds normal. No peritoneal signs. Rectal tube + Musculoskeletal: No pedal edema, no cyanosis. Skin: No rash or abscess Hem/Lymphatic: No palpable cervical or supraclavicular nodes. No lymphangitis Psych: no agitation Neurological: opening eyes, doesn't follow commands, intubated, on vent - Constitutional Vitals: Vital Signs Temp Pulse Resp BP Pulse Ox 98.2 F 85 17 132/60 99 03/27/19 08:00 03/27/19 12:35 03/27/19 12:35 03/27/19 12:35 03/27/19 12:35 Temperature -Last 24 Hours Temperature 98.2 F Temperature 99.8 F Temperature 99.6 F Temperature 100.3 F Temperature 100.7 F - Labs CBC & Chem 7: 03/26/19 04:49 03/27/19 04:42 Labs: Abnormal lab results 03/26/19 03/26/19 03/27/19 Range/Units 18:27 23:25 04:42 BUN 38 H (9-20) mg/dL Creatinine 1.9 H (0.8-1.5) mg/dL Glucose 182 H (75-100) mg/dL POC Glucose 216 H 227 H (70-105) 03/27/19 03/27/19 Range/Units 05:27 12:04 BUN (9-20) mg/dL Creatinine (0.8-1.5) mg/dL Glucose (75-100) mg/dL POC Glucose 188 H 226 H (70-105)
[2019-03-27] MEDS: VANCOMYCIN/NS 1 GM/250 ML 1 GM/250 ML BAG IV SCH (13:00)
[2019-03-27] MEDS: VANCOMYCIN 250 MG/10 ML ORAL LIQD PO SCH ×2 (13:58→19:08)
[2019-03-27] MEDS ORDERED: CEFEPIME/NS 1 GM/100 ML 1 GM/100 ML BAG IV SCH (14:00)
[2019-03-27 15:25] LABS: ABG Base Excess -3.1 mmol/L (-2.0-3.0); ABG HCO3 20.2 mmol/L (20.0-26.0); ABG Methemoglobin 0.6 % (0.0-1.5); ABG PCO2 31.7 mm Hg; ABG PH 7.421 pH Units (7.350-7.450); ABG PO2 108.8 mm Hg (80.0-90.0)
--- NOTE | 2019-03-27 15:51 | Progress Note ---
Assessment and Plan Severe Sepsis CRISTÓBAL Acidosis Acute respiratory failure with hypoxia HLD (hyperlipidemia) DM type 2 Acute onset seizure Acute encephalopathy (Toxic/Met) Hypophosphatemia (AMS is a significant rate limiting step to safe extubation currently) - continue Provigil - continue Lantus 5 units sq q24h - continue scopolamine patch for secretion control - continue bronchodilators with pulmonary hygiene per RT - continue daily SAT's and SBT assessment as tolerated in am - continue to wean supplemental oxygen for target O2 sat's > 90% acutely - VAP bundle addressed - continue lung protective strategies - wean per pulmonary driven protocols otherwise - continue empiric broad spectrum coverage per ID recommendations - continue set rate on MVS at 12/min - enteral nutrition at goal rate as tolerated - neurology evaluation ongoing (AED's per neuro) - accuchecks with glycemic control per SSI (While critically ill target blood glucose of 140-180 mg/dL; avoid hypoglycemia) - prn analgesia per CPOT score - Maintenance of sleep-wake cycle, avoid delirium - G.I. & VTE prophylaxis - PT/OT/ROM exercises - continue mobility protocols for pressure ulcer prophylaxis - Monitor hemodynamics closely - continue other care per attending / other tanning consultant's .... re-evaluate in am & prn CONDITION: CRITICAL PROGNOSIS: GUARDED CODE STATUS: FULL CODE The high probability of a clinically significant, sudden or life-threatening deterioration of the [respiratory, cardiovascular & neurologic] system(s) required my full and direct attention, intervention and personal management. The aggregate critical care time was [33] minutes without overlap. Time includes spent on; [x] Data Review and interpretation [x] Patient assessment and monitoring of vital signs [x] Documentation [x] Medication orders and management Subjective Date of service: 03/27/19 Principal diagnosis: Severe Sepsis; CRISTÓBAL; Ac hypoxemic resp failure; DM II; Seizures; AMS Interval history: Patient is seen today for: Severe Sepsis; CRISTÓBAL; Acidosis; Acute hypoxemic respira tory failure; HLD; DM type 2; Acute onset seizure; Acute encephalopathy (Toxic/Met) Seen and examined at bedside; 24hour events reviewed; nursing and respiratory care staff consulted; no adverse overnight events reported to me; remains on MVS; AMS is persistent; tolerating SBT this am; no N/V/F/C Objective Vital Signs - 12hr 03/27/19 03/27/19 03/27/19 04:00 04:30 05:00 Temperature Pulse Rate 85 86 86 Pulse Rate [ 86 From Monitor] Respiratory 19 20 19 Rate Blood Pressure 115/52 127/55 111/50 O2 Sat by Pulse 97 97 97 Oximetry 03/27/19 03/27/19 03/27/19 05:30 06:00 06:30 Temperature Pulse Rate 87 87 87 Pulse Rate [ From Monitor] Respiratory 21 20 19 Rate Blood Pressure 123/58 113/54 111/50 O2 Sat by Pulse 98 97 97 Oximetry 03/27/19 03/27/19 03/27/19 07:00 07:30 08:00 Temperature 98.2 F Pulse Rate 86 88 89 Pulse Rate [ 82 From Monitor] Respiratory 18 19 20 Rate Blood Pressure 108/55 109/50 101/51 O2 Sat by Pulse 98 99 98 Oximetry 03/27/19 03/27/19 03/27/19 08:30 09:00 09:30 Temperature Pulse Rate 86 87 90 Pulse Rate [ From Monitor] Respiratory 20 18 22 Rate Blood Pressure 109/52 104/50 116/59 O2 Sat by Pulse 98 98 100 Oximetry 03/27/19 03/27/19 03/27/19 10:01 10:31 11:00 Temperature Pulse Rate 88 88 90 Pulse Rate [ From Monitor] Respiratory 16 14 15 Rate Blood Pressure 112/61 116/59 115/58 O2 Sat by Pulse Oximetry 03/27/19 03/27/19 03/27/19 11:30 12:00 12:30 Temperature 98.4 F Pulse Rate 84 80 90 Pulse Rate [ 80 From Monitor] Respiratory 14 16 16 Rate Blood Pressure 125/53 122/53 132/60 O2 Sat by Pulse 100 Oximetry 03/27/19 03/27/19 03/27/19 12:35 13:00 13:30 Temperature Pulse Rate 85 88 83 Pulse Rate [ From Monitor] Respiratory 17 17 18 Rate Blood Pressure 132/60 133/61 113/46 O2 Sat by Pulse 99 Oximetry 03/27/19 03/27/19 14:00 14:30 Temperature Pulse Rate 79 77 Pulse Rate [ From Monitor] Respiratory 14 14 Rate Blood Pressure 122/50 127/51 O2 Sat by Pulse 99 Oximetry Constitutional: no acute distress, other (elderly looking CM nornocephalic riding set rate on MVS) Eyes: non-icteric ENT: oropharynx moist, other (ETT 23 cm MARILYN) Neck: supple, no lymphadenopathy, no JVD Effort: mildly labored Ascultation: Bilateral: diminished breath sounds, rhonchi Percussion: Bilateral: not dull Cardiovascular: regular rate and rhythm Gastrointestinal: normoactive bowel sounds, soft, non-tender, non-distended Integumentary: normal Extremities: no cyanosis, no edema, pink and warm, pulses normal Neurologic: unable to assess Psychiatric: other (unable to assess re: AMS) CBC and BMP: 03/28/19 04:03 03/28/19 04:03 ABG, PT/INR, D-dimer: ABG ABG pH 7.421 pH Units (7.350-7.450) 03/27/19 14:50 ABG pCO2 31.7 mm Hg 03/27/19 14:50 ABG pO2 108.8 mm Hg (80.0-90.0) H 03/27/19 14:50 ABG O2 Saturation 98.0 % (95.0-99.0) 03/27/19 14:50 PT/INR, D-dimer PT 14.4 Sec. (12.2-14.9) 03/18/19 14:17 INR 1.11 (0.87-1.13) 03/18/19 14:17 Abnormal lab findings: Abnormal Labs 03/18/19 03/18/19 03/18/19 14:17 14:17 14:17 WBC 38.1 H RBC Hgb Hct MCV 83 L MCH 27 L Plt Count 740 H Lymph % (Auto) Lymph # [place] # Seg Neutrophils % Seg Neuts % (Manual) 93.0 H Lymphocytes % (Manual) 2.5 L Monocytes % (Manual) Seg Neutrophils # Seg Neutrophils # Man 35.4 H Lymphocytes # (Manual) 1.0 L Monocytes # (Manual) 1.5 H Thrombin Time 14.7 L ABG pH ABG pO2 ABG O2 Saturation ABG Base Excess ABG Hemoglobin Sodium Potassium Chloride 94.9 L Carbon Dioxide 20 L BUN 34 H Creatinine 2.7 H Glucose 244 H POC Glucose Lactic Acid Calcium 10.6 H Phosphorus Total Creatine Kinase Troponin T 0.297 H* Total Protein Albumin Cholesterol 264 H LDL Cholesterol Direct 182 H Ur Specific [place] Urine WBC (Auto) Urine Creatinine 03/18/19 03/18/19 03/18/19 15:33 15:33 17:55 WBC RBC Hgb Hct MCV MCH Plt Count Lymph % (Auto) Lymph # [place] # Seg Neutrophils % Seg Neuts % (Manual) Lymphocytes % (Manual) Monocytes % (Manual) Seg Neutrophils # Seg Neutrophils # Man Lymphocytes # (Manual) Monocytes # (Manual) Thrombin Time ABG pH ABG pO2 ABG O2 Saturation ABG Base Excess ABG Hemoglobin Sodium Potassium Chloride Carbon Dioxide BUN Creatinine Glucose POC Glucose Lactic Acid 2.70 H* 3.00 H* Calcium Phosphorus Total Creatine Kinase 2896 H Troponin T Total Protein Albumin Cholesterol LDL Cholesterol Direct Ur Specific [place] Urine WBC (Auto) Urine Creatinine 03/18/19 03/18/19 03/18/19 20:22 Unknown Unknown WBC RBC Hgb Hct MCV MCH Plt Count Lymph % (Auto) Lymph # [place] # Seg Neutrophils % Seg Neuts % (Manual) Lymphocytes % (Manual) Monocytes % (Manual) Seg Neutrophils # Seg Neutrophils # Man Lymphocytes # (Manual) Monocytes # (Manual) Thrombin Time ABG pH ABG pO2 183.5 H ABG O2 Saturation 99.2 H ABG Base Excess ABG Hemoglobin 12.7 L Sodium Potassium Chloride Carbon Dioxide BUN Creatinine Glucose POC Glucose Lactic Acid 3.00 H* Calcium Phosphorus Total Creatine Kinase Troponin T Total Protein Albumin Cholesterol LDL Cholesterol Direct Ur Specific [place] 1.046 H Urine WBC (Auto) 23.0 H Urine Creatinine 03/19/19 03/19/19 03/19/19 01:38 02:56 02:56 WBC 25.4 H RBC Hgb 11.3 L Hct 34.1 L D MCV 83 L MCH 27 L Plt Count 496 H Lymph % (Auto) Lymph # [place] # Seg Neutrophils % Seg Neuts % (Manual) 90.0 H Lymphocytes % (Manual) 3.0 L Monocytes % (Manual) Seg Neutrophils # Seg Neutrophils # Man 22.9 H Lymphocytes # (Manual) 0.8 L Monocytes # (Manual) 1.8 H Thrombin Time ABG pH ABG pO2 ABG O2 Saturation ABG Base Excess ABG Hemoglobin Sodium Potassium Chloride Carbon Dioxide 20 L BUN 34 H Creatinine 2.5 H Glucose 208 H POC Glucose Lactic Acid Calcium Phosphorus Total Creatine Kinase Troponin T Total Protein 5.9 L Albumin 2.9 L Cholesterol LDL Cholesterol Direct Ur Specific [place] Urine WBC (Auto) Urine Creatinine 142.9 H 03/19/19 03/19/19 03/19/19 05:12 14:39 23:08 WBC RBC Hgb Hct MCV MCH Plt Count Lymph % (Auto) Lymph # [place] # Seg Neutrophils % Seg Neuts % (Manual) Lymphocytes % (Manual) Monocytes % (Manual) Seg Neutrophils # Seg Neutrophils # Man Lymphocytes # (Manual) Monocytes # (Manual) Thrombin Time ABG pH ABG pO2 201.8 H ABG O2 Saturation 99.3 H ABG Base Excess -2.8 L ABG Hemoglobin Sodium Potassium Chloride Carbon Dioxide BUN Creatinine Glucose POC Glucose 185 H Lactic Acid Calcium Phosphorus Total Creatine Kinase Troponin T 0.200 H* D Total Protein Albumin Cholesterol LDL Cholesterol Direct Ur Specific [place] Urine WBC (Auto) Urine Creatinine 03/20/19 03/20/19 03/20/19 00:12 03:44 05:19 WBC RBC Hgb Hct MCV MCH Plt Count Lymph % (Auto) Lymph # [place] # Seg Neutrophils % Seg Neuts % (Manual) Lymphocytes % (Manual) Monocytes % (Manual) Seg Neutrophils # Seg Neutrophils # Man Lymphocytes # (Manual) Monocytes # (Manual) Thrombin Time ABG pH ABG pO2 122.8 H ABG O2 Saturation ABG Base Excess -3.0 L ABG Hemoglobin 8.9 L Sodium Potassium Chloride Carbon Dioxide BUN Creatinine Glucose POC Glucose 193 H 202 H Lactic Acid Calcium Phosphorus Total Creatine Kinase Troponin T Total Protein Albumin Cholesterol LDL Cholesterol Direct Ur Specific [place] Urine WBC (Auto) Urine Creatinine 03/20/19 03/20/19 03/20/19 05:26 05:26 05:26 WBC 19.5 H RBC Hgb 10.8 L Hct 33.0 L MCV 82 L MCH 27 L Plt Count Lymph % (Auto) 5.4 L Lymph # 1.1 L [place] # 1.4 H Seg Neutrophils % 86.8 H Seg Neuts % (Manual) Lymphocytes % (Manual) Monocytes % (Manual) Seg Neutrophils # 16.9 H Seg Neutrophils # Man Lymphocytes # (Manual) Monocytes # (Manual) Thrombin Time ABG pH ABG pO2 ABG O2 Saturation ABG Base Excess ABG Hemoglobin Sodium Potassium Chloride 110.5 H Carbon Dioxide 17 L BUN 41 H Creatinine 2.6 H Glucose 199 H POC Glucose Lactic Acid Calcium Phosphorus Total Creatine Kinase 396 H Troponin T 0.191 H* Total Protein Albumin Cholesterol LDL Cholesterol Direct Ur Specific [place] Urine WBC (Auto) Urine Creatinine 03/20/19 03/20/19 03/20/19 11:33 15:23 18:28 WBC RBC Hgb Hct MCV MCH Plt Count Lymph % (Auto) Lymph # [place] # Seg Neutrophils % Seg Neuts % (Manual) Lymphocytes % (Manual) Monocytes % (Manual) Seg Neutrophils # Seg Neutrophils # Man Lymphocytes # (Manual) Monocytes # (Manual) Thrombin Time ABG pH ABG pO2 ABG O2 Saturation ABG Base Excess ABG Hemoglobin Sodium Potassium Chloride Carbon Dioxide BUN Creatinine Glucose POC Glucose 196 H 190 H Lactic Acid Calcium Phosphorus Total Creatine Kinase Troponin T 0.214 H* Total Protein Albumin Cholesterol LDL Cholesterol Direct Ur Specific [place] Urine WBC (Auto) Urine Creatinine 03/20/19 03/21/19 03/21/19 23:14 03:29 04:07 WBC RBC Hgb Hct MCV MCH Plt Count Lymph % (Auto) Lymph # [place] # Seg Neutrophils % Seg Neuts % (Manual) Lymphocytes % (Manual) Monocytes % (Manual) Seg Neutrophils # Seg Neutrophils # Man Lymphocytes # (Manual) Monocytes # (Manual) Thrombin Time ABG pH 7.483 H ABG pO2 97.5 H ABG O2 Saturation ABG Base Excess ABG Hemoglobin 8.5 L Sodium 146 H Potassium 3.1 L D Chloride 109.8 H Carbon Dioxide BUN 35 H Creatinine 1.9 H Glucose 200 H POC Glucose 190 H Lactic Acid Calcium Phosphorus 1.80 L Total Creatine Kinase Troponin T Total Protein Albumin Cholesterol LDL Cholesterol Direct Ur Specific [place] Urine WBC (Auto) Urine Creatinine 03/21/19 03/21/19 03/21/19 05:22 11:52 18:06 WBC RBC Hgb Hct MCV MCH Plt Count Lymph % (Auto) Lymph # [place] # Seg Neutrophils % Seg Neuts % (Manual) Lymphocytes % (Manual) Monocytes % (Manual) Seg Neutrophils # Seg Neutrophils # Man Lymphocytes # (Manual) Monocytes # (Manual) Thrombin Time ABG pH ABG pO2 ABG O2 Saturation ABG Base Excess ABG Hemoglobin Sodium Potassium Chloride Carbon Dioxide BUN Creatinine Glucose POC Glucose 189 H 236 H 164 H Lactic Acid Calcium Phosphorus Total Creatine Kinase Troponin T Total Protein Albumin Cholesterol LDL Cholesterol Direct Ur Specific [place] Urine WBC (Auto) Urine Creatinine 03/21/19 03/22/19 03/22/19 23:36 04:47 04:47 WBC RBC 3.62 L Hgb 10.1 L Hct 29.9 L MCV 83 L MCH Plt Count Lymph % (Auto) Lymph # [place] # Seg Neutrophils % Seg Neuts % (Manual) 83.0 H Lymphocytes % (Manual) 8.0 L Monocytes % (Manual) 8.0 H Seg Neutrophils # Seg Neutrophils # Man 8.8 H Lymphocytes # (Manual) 0.8 L Monocytes # (Manual) Thrombin Time ABG pH ABG pO2 ABG O2 Saturation ABG Base Excess ABG Hemoglobin Sodium Potassium Chloride 107.8 H Carbon Dioxide 19 L BUN 28 H Creatinine 1.6 H Glucose 198 H POC Glucose 211 H Lactic Acid Calcium Phosphorus 2.40 L D Total Creatine Kinase Troponin T Total Protein Albumin Cholesterol LDL Cholesterol Direct Ur Specific [place] Urine WBC (Auto) Urine Creatinine 03/22/19 03/22/19 03/22/19 05:20 05:29 10:10 WBC RBC Hgb Hct MCV MCH Plt Count Lymph % (Auto) Lymph # [place] # Seg Neutrophils % Seg Neuts % (Manual) Lymphocytes % (Manual) Monocytes % (Manual) Seg Neutrophils # Seg Neutrophils # Man Lymphocytes # (Manual) Monocytes # (Manual) Thrombin Time ABG pH 7.481 H 7.483 H ABG pO2 74.6 L 79.4 L ABG O2 Saturation ABG Base Excess ABG Hemoglobin 9.7 L 9.2 L Sodium Potassium Chloride Carbon Dioxide BUN Creatinine Glucose POC Glucose 202 H Lactic Acid Calcium Phosphorus Total Creatine Kinase Troponin T Total Protein Albumin Cholesterol LDL Cholesterol Direct Ur Specific [place] Urine WBC (Auto) Urine Creatinine 03/22/19 03/22/19 03/22/19 12:29 17:34 23:16 WBC RBC Hgb Hct MCV MCH Plt Count Lymph % (Auto) Lymph # [place] # Seg Neutrophils % Seg Neuts % (Manual) Lymphocytes % (Manual) Monocytes % (Manual) Seg Neutrophils # Seg Neutrophils # Man Lymphocytes # (Manual) Monocytes # (Manual) Thrombin Time ABG pH ABG pO2 ABG O2 Saturation ABG Base Excess ABG Hemoglobin Sodium Potassium Chloride Carbon Dioxide BUN Creatinine Glucose POC Glucose 234 H 225 H 205 H Lactic Acid Calcium Phosphorus Total Creatine Kinase Troponin T Total Protein Albumin Cholesterol LDL Cholesterol Direct Ur Specific [place] Urine WBC (Auto) Urine Creatinine 03/23/19 03/23/19 03/23/19 03:27 03:50 04:17 WBC RBC Hgb Hct MCV MCH Plt Count Lymph % (Auto) Lymph # [place] # Seg Neutrophils % Seg Neuts % (Manual) Lymphocytes % (Manual) Monocytes % (Manual) Seg Neutrophils # Seg Neutrophils # Man Lymphocytes # (Manual) Monocytes # (Manual) Thrombin Time ABG pH 7.486 H ABG pO2 75.2 L ABG O2 Saturation ABG Base Excess ABG Hemoglobin 9.6 L Sodium Potassium Chloride Carbon Dioxide BUN Creatinine Glucose POC Glucose 113 H 173 H Lactic Acid Calcium Phosphorus Total Creatine Kinase Troponin T Total Protein Albumin Cholesterol LDL Cholesterol Direct Ur Specific [place] Urine WBC (Auto) Urine Creatinine 03/23/19 03/23/19 03/23/19 05:12 12:32 18:20 WBC RBC Hgb Hct MCV MCH Plt Count Lymph % (Auto) Lymph # [place] # Seg Neutrophils % Seg Neuts % (Manual) Lymphocytes % (Manual) Monocytes % (Manual) Seg Neutrophils # Seg Neutrophils # Man Lymphocytes # (Manual) Monocytes # (Manual) Thrombin Time ABG pH ABG pO2 ABG O2 Saturation ABG Base Excess ABG Hemoglobin Sodium Potassium Chloride 107.3 H Carbon Dioxide 21 L BUN 27 H Creatinine 1.6 H Glucose 166 H POC Glucose 212 H 190 H Lactic Acid Calcium Phosphorus Total Creatine Kinase Troponin T Total Protein Albumin Cholesterol LDL Cholesterol Direct Ur Specific [place] Urine WBC (Auto) Urine Creatinine 03/23/19 03/24/19 03/24/19 23:40 05:15 05:24 WBC RBC Hgb Hct MCV MCH Plt Count Lymph % (Auto) Lymph # [place] # Seg Neutrophils % Seg Neuts % (Manual) Lymphocytes % (Manual) Monocytes % (Manual) Seg Neutrophils # Seg Neutrophils # Man Lymphocytes # (Manual) Monocytes # (Manual) Thrombin Time ABG pH ABG pO2 ABG O2 Saturation ABG Base Excess ABG Hemoglobin Sodium Potassium Chloride Carbon Dioxide 21 L BUN 28 H Creatinine Glucose 139 H POC Glucose 172 H 128 H Lactic Acid Calcium Phosphorus Total Creatine Kinase Troponin T Total Protein Albumin Cholesterol LDL Cholesterol Direct Ur Specific [place] Urine WBC (Auto) Urine Creatinine 03/24/19 03/24/19 03/24/19 12:21 17:16 23:27 WBC RBC Hgb Hct MCV MCH Plt Count Lymph % (Auto) Lymph # [place] # Seg Neutrophils % Seg Neuts % (Manual) Lymphocytes % (Manual) Monocytes % (Manual) Seg Neutrophils # Seg Neutrophils # Man Lymphocytes # (Manual) Monocytes # (Manual) Thrombin Time ABG pH ABG pO2 ABG O2 Saturation ABG Base Excess ABG Hemoglobin Sodium Potassium Chloride Carbon Dioxide BUN Creatinine Glucose POC Glucose 213 H 200 H 189 H Lactic Acid Calcium Phosphorus Total Creatine Kinase Troponin T Total Protein Albumin Cholesterol LDL Cholesterol Direct Ur Specific [place] Urine WBC (Auto) Urine Creatinine 03/25/19 03/25/19 03/25/19 01:57 04:23 05:24 WBC RBC Hgb Hct MCV MCH Plt Count Lymph % (Auto) Lymph # [place] # Seg Neutrophils % Seg Neuts % (Manual) Lymphocytes % (Manual) Monocytes % (Manual) Seg Neutrophils # Seg Neutrophils # Man Lymphocytes # (Manual) Monocytes # (Manual) Thrombin Time ABG pH 7.470 H ABG pO2 73.5 L ABG O2 Saturation ABG Base Excess ABG Hemoglobin 7.5 L Sodium 134 L Potassium Chloride Carbon Dioxide 21 L BUN 28 H Creatinine Glucose 179 H POC Glucose 198 H Lactic Acid Calcium 8.3 L Phosphorus Total Creatine Kinase Troponin T Total Protein Albumin Cholesterol LDL Cholesterol Direct Ur Specific [place] Urine WBC (Auto) Urine Creatinine 03/25/19 03/25/19 03/25/19 12:23 17:31 23:59 WBC RBC Hgb Hct MCV MCH Plt Count Lymph % (Auto) Lymph # [place] # Seg Neutrophils % Seg Neuts % (Manual) Lymphocytes % (Manual) Monocytes % (Manual) Seg Neutrophils # Seg Neutrophils # Man Lymphocytes # (Manual) Monocytes # (Manual) Thrombin Time ABG pH ABG pO2 ABG O2 Saturation ABG Base Excess ABG Hemoglobin Sodium Potassium Chloride Carbon Dioxide BUN Creatinine Glucose POC Glucose 184 H 181 H 198 H Lactic Acid Calcium Phosphorus Total Creatine Kinase Troponin T Total Protein Albumin Cholesterol LDL Cholesterol Direct Ur Specific [place] Urine WBC (Auto) Urine Creatinine 03/26/19 03/26/19 03/26/19 04:49 04:49 05:44 WBC 12.4 H RBC 3.47 L Hgb 9.6 L Hct 28.6 L MCV 82 L MCH Plt Count Lymph % (Auto) 6.3 L Lymph # 0.8 L [place] # Seg Neutrophils % 88.2 H Seg Neuts % (Manual) Lymphocytes % (Manual) Monocytes % (Manual) Seg Neutrophils # 10.9 H Seg Neutrophils # Man Lymphocytes # (Manual) Monocytes # (Manual) Thrombin Time ABG pH ABG pO2 ABG O2 Saturation ABG Base Excess ABG Hemoglobin Sodium 132 L Potassium Chloride 96.8 L Carbon Dioxide 21 L BUN 29 H Creatinine Glucose 225 H POC Glucose 219 H Lactic Acid Calcium Phosphorus Total Creatine Kinase Troponin T Total Protein Albumin Cholesterol LDL Cholesterol Direct Ur Specific [place] Urine WBC (Auto) Urine Creatinine 03/26/19 03/26/19 03/26/19 12:40 18:27 23:25 WBC RBC Hgb Hct MCV MCH Plt Count Lymph % (Auto) Lymph # [place] # Seg Neutrophils % Seg Neuts % (Manual) Lymphocytes % (Manual) Monocytes % (Manual) Seg Neutrophils # Seg Neutrophils # Man Lymphocytes # (Manual) Monocytes # (Manual) Thrombin Time ABG pH ABG pO2 ABG O2 Saturation ABG Base Excess ABG Hemoglobin Sodium Potassium Chloride Carbon Dioxide BUN Creatinine Glucose POC Glucose 236 H 216 H 227 H Lactic Acid Calcium Phosphorus Total Creatine Kinase Troponin T Total Protein Albumin Cholesterol LDL Cholesterol Direct Ur Specific [place] Urine WBC (Auto) Urine Creatinine 03/27/19 03/27/19 03/27/19 04:42 05:27 12:04 WBC RBC Hgb Hct MCV MCH Plt Count Lymph % (Auto) Lymph # [place] # Seg Neutrophils % Seg Neuts % (Manual) Lymphocytes % (Manual) Monocytes % (Manual) Seg Neutrophils # Seg Neutrophils # Man Lymphocytes # (Manual) Monocytes # (Manual) Thrombin Time ABG pH ABG pO2 ABG O2 Saturation ABG Base Excess ABG Hemoglobin Sodium Potassium Chloride Carbon Dioxide BUN 38 H Creatinine 1.9 H Glucose 182 H POC Glucose 188 H 226 H Lactic Acid Calcium Phosphorus Total Creatine Kinase Troponin T Total Protein Albumin Cholesterol LDL Cholesterol Direct Ur Specific [place] Urine WBC (Auto) Urine Creatinine 03/27/19 14:50 WBC RBC Hgb Hct MCV MCH Plt Count Lymph % (Auto) Lymph # [place] # Seg Neutrophils % Seg Neuts % (Manual) Lymphocytes % (Manual) Monocytes % (Manual) Seg Neutrophils # Seg Neutrophils # Man Lymphocytes # (Manual) Monocytes # (Manual) Thrombin Time ABG pH ABG pO2 108.8 H ABG O2 Saturation ABG Base Excess -3.1 L ABG Hemoglobin Sodium Potassium Chloride Carbon Dioxide BUN Creatinine Glucose POC Glucose Lactic Acid Calcium Phosphorus Total Creatine Kinase Troponin T Total Protein Albumin Cholesterol LDL Cholesterol Direct Ur Specific [place] Urine WBC (Auto) Urine Creatinine Allied health notes reviewed: nursing
--- NOTE | 2019-03-27 15:54 | Progress Note ---
Assessment and Plan /new onset diarrhea since 03/25/19 - restarted abx -vanco po, C.def ordered /New GPC bacteremia: 02/28 bottles 03/26/19, follow up final results. Continue IV Vancomycin for now. /Acute encephalopathy -improving likely from SIRS vs CRISTÓBAL Vs underlying seizure monitor clinically. MRI brain w/o any acute change, CSF study negative cont to treat underlying cause, neurology following / SIRS, likely from new onset seizure Sepsis with possible meningitis - ruled out cannot r/o meningitis as presented with seizure, encephalopathy and elevated w hector count Admited to ICU with Sepsis protocol: IV fluid resuscitation therapy, serial CBC, BMP, lactic acid level, IV abx, ordered Cx negative blood cx report, URINE for MSSA - could be a skin contaminant ordered for LP - placed on Iv coverage for viral and bacterial meningitis, ID consulted s/p LP 03/20/19 - study result not convincing for bacterial meningitis, also negative for viral PCR cont to treat for seizure, wbc trended down, d/aria abx for meningitis / CRISTÓBAL (acute kidney injury): likely vasomotor nephropathy - Cr slightly increased today cont IV fluid resuscitation therapy, monitor urine output every shift, strict I's/O, Nephrology following /hypokalemia, repleted, follow BMP / metabolic Acidosis - due to sepsis vs CRISTÓBAL - resolved IV fluid resuscitation therapy, monitor urine output every shift, s/p IV bicarbonate therapy. / Acute respiratory failure with hypoxia Patient intubated and placed on ventilatory support, daily SBT, sedation holiday, Now on cpap, cont nebs, possible extubation when mental status improves / HLD (hyperlipidemia) TF diet for now, statin therapy as clinically indicated. / DM type 2 - SSI as needed /Acute onset seizure, started on keppra - EEG showed + for seizure, neurology recomsulted /DVT prophylaxis SCD to bilateral lower extremities while in bed, prophylactic heparin. The high probability of a clinically significant, sudden or life threatening deterioration of the [cardiac, pulmonary, renal, neurologic] system(s) required my full and direct attention, intervention and personal management. The aggregate critical care time was [35] minutes. This time is in addition to time spent performing reported procedures but includes the following: [x] Data Review and interpretation [x] Patient assessment and monitoring of vital signs [x] Documentation [x] Medication orders and management Disposition: not medically stable for d/c Brief History: 68-year-old male with HTN, DM, OA, HLD, Obesity presents to ED as he was found unresponsive. EMS was notified and upon arrival the patient was found to have acute hypoxemic respiratory failure and is unable to protect his airway and was subsequently intubated and placed on vent support. Patient also found to have elevated white count, acute kidney injury, acidosis, and encephalopathy. Patient initiated on sepsis protocol for possible meningitis and admitted to ICU for medical stabilization. Subjective Date of service: 03/27/19 Principal diagnosis: Severe Sepsis; CRISTÓBAL; Ac hypoxemic resp failure; DM II; Seizures; AMS Interval history: Patient seen and examined Patient remained intubated, off sedation afebrile, white count trended down off sedation since 03/20 - patient responsive today On CPAP on vent now cont to have diarrhea, spiked fever Objective - Exam Narrative Exam: General appearance: Present: other (intubated), NAD, opens eyes - EENT Eyes: no scleral icterus, no conjunctival injection ENT: clear oral mucosa Ears: bilateral: normal - Neck Neck: no rigidity, no enlarged thyroid - Respiratory Respiratory effort: other (on mechanical ventilation) Respiratory: bilateral: CTA - Cardiovascular Rhythm: regular Heart Sounds: Present: S1 & S2. Absent: gallop, rub Extremities: pulses intact, No edema, normal color - Gastrointestinal General gastrointestinal: Present: soft, non-tender, non-distended, normal bowel sounds - Integumentary Integumentary: clear, warm, dry - Musculoskeletal Musculoskeletal: no joint swelling - Neurologic Neurologic: moves extremities - does not follow commend but opens his eyes, off sedation - Psychiatric Psychiatric: other (intubated) - Constitutional Vitals: Vital Signs - 12hr 03/27/19 03/27/19 03/27/19 04:00 04:30 05:00 Temperature Pulse Rate 85 86 86 Pulse Rate [ 86 From Monitor] Respiratory 19 20 19 Rate Blood Pressure 115/52 127/55 111/50 O2 Sat by Pulse 97 97 97 Oximetry 03/27/19 03/27/19 03/27/19 05:30 06:00 06:30 Temperature Pulse Rate 87 87 87 Pulse Rate [ From Monitor] Respiratory 21 20 19 Rate Blood Pressure 123/58 113/54 111/50 O2 Sat by Pulse 98 97 97 Oximetry 03/27/19 03/27/19 03/27/19 07:00 07:30 08:00 Temperature 98.2 F Pulse Rate 86 88 89 Pulse Rate [ 82 From Monitor] Respiratory 18 19 20 Rate Blood Pressure 108/55 109/50 101/51 O2 Sat by Pulse 98 99 98 Oximetry 03/27/19 03/27/19 03/27/19 08:30 09:00 09:30 Temperature Pulse Rate 86 87 90 Pulse Rate [ From Monitor] Respiratory 20 18 22 Rate Blood Pressure 109/52 104/50 116/59 O2 Sat by Pulse 98 98 100 Oximetry 03/27/19 03/27/19 03/27/19 10:01 10:31 11:00 Temperature Pulse Rate 88 88 90 Pulse Rate [ From Monitor] Respiratory 16 14 15 Rate Blood Pressure 112/61 116/59 115/58 O2 Sat by Pulse Oximetry 03/27/19 03/27/19 03/27/19 11:30 12:00 12:30 Temperature 98.4 F Pulse Rate 84 80 90 Pulse Rate [ 80 From Monitor] Respiratory 14 16 16 Rate Blood Pressure 125/53 122/53 132/60 O2 Sat by Pulse 100 Oximetry 03/27/19 03/27/19 03/27/19 12:35 13:00 13:30 Temperature Pulse Rate 85 88 83 Pulse Rate [ From Monitor] Respiratory 17 17 18 Rate Blood Pressure 132/60 133/61 113/46 O2 Sat by Pulse 99 Oximetry 03/27/19 03/27/19 14:00 14:30 Temperature Pulse Rate 79 77 Pulse Rate [ From Monitor] Respiratory 14 14 Rate Blood Pressure 122/50 127/51 O2 Sat by Pulse 99 Oximetry - Labs CBC & Chem 7: 03/26/19 04:49 03/27/19 04:42 Labs: Abnormal lab results 03/26/19 03/26/19 03/27/19 Range/Units 18:27 23:25 04:42 ABG pO2 (80.0-90.0) mm Hg ABG Base Excess (-2.0-3.0) mmol/L BUN 38 H (9-20) mg/dL Creatinine 1.9 H (0.8-1.5) mg/dL Glucose 182 H (75-100) mg/dL POC Glucose 216 H 227 H (70-105) 03/27/19 03/27/19 03/27/19 Range/Units 05:27 12:04 14:50 ABG pO2 108.8 H (80.0-90.0) mm Hg ABG Base Excess -3.1 L (-2.0-3.0) mmol/L BUN (9-20) mg/dL Creatinine (0.8-1.5) mg/dL Glucose (75-100) mg/dL POC Glucose 188 H 226 H (70-105)
--- NOTE | 2019-03-27 16:59 | Progress Note ---
Assessment and Plan Patient is a 68-year-old man with history of hypertension, diabetes, OA, hyperlipidemia, obesity, who presented on March 18 after he was found down and unresponsive at home. Patient was found to have sepsis, CRISTÓBAL, acidosis, hypoxemic respiratory failure, and encephalopathy. According the patient's clinical findings, it is likely that he has metabolic encephalopathy. The patient also may have had seizures, as EEG on admission showed 2 possible partial seizures. Plan: 1. Metabolic encephalopathy: CT head on March 18: No acute abnormality. MRI on generally : No acute abnormality. CTA head and neck: No significant stenosis or large vessel occlusion. EEG on : Showed generalized slowing as well as 2 possible partial seizures. EEG on March 20 showed generalized slowing, and no seizures. - EEG 03/26/18: generalized slowing, no seizure or epileptiform activity. - Continue Keppra. LP was done, and CSF notable for increased WBCs, however CSF PCR was negative. - Continue antibiotics per ID. Continue to treat metabolic and infectious abnormalities per primary team/ID/critical care team. - Discussed with family regarding patient's current neurologic status, including multifactorial encephalopathy, due to CRISTÓBAL, sepsis, acidosis, and respiratory failure. - Will sign off, as I am not covering neurology service over the weekend. Recommend consult neurologist covering service over the weekend for further neurologic monitoring and management. Thank you for allowing me to take part in the care of this patient. Lukas Shelton MD Neurology Subjective Date of service: 03/27/19 Principal diagnosis: Severe Sepsis; CRISTÓBAL; Ac hypoxemic resp failure; DM II; Seizures; AMS Interval history: Patient febrile overnight. Objective - Exam Narrative Exam: Patient is obtunded, opens eyes to tactile stimulus, follows one-step commands intermittently, intubated. PERRLA, corneal reflex positive, cough reflex positive. Noted to have spontaneous eye opening. Patient is noted to move bilateral lower extremities and bilateral upper extremities on command. Withdraws all extremities with pain stimulus. 2+ reflexes throughout. - Vital Sign Vital Signs - 12hr 03/27/19 03/27/19 03/27/19 05:00 05:30 06:00 Temperature Pulse Rate 86 87 87 Pulse Rate [ From Monitor] Respiratory 19 21 20 Rate Blood Pressure 111/50 123/58 113/54 O2 Sat by Pulse 97 98 97 Oximetry 01/03/27/19 03/27/19 06:30 07:00 07:30 Temperature Pulse Rate 87 86 88 Pulse Rate [ From Monitor] Respiratory 19 18 19 Rate Blood Pressure 111/50 108/55 109/50 O2 Sat by Pulse 97 98 99 Oximetry 03/27/19 03/27/19 03/27/19 08:00 08:30 09:00 Temperature 98.2 F Pulse Rate 89 86 87 Pulse Rate [ 82 From Monitor] Respiratory 20 20 18 Rate Blood Pressure 101/51 109/52 104/50 O2 Sat by Pulse 98 98 98 Oximetry 03/27/19 03/27/19 03/27/19 09:30 10:01 10:31 Temperature Pulse Rate 90 88 88 Pulse Rate [ From Monitor] Respiratory 22 16 14 Rate Blood Pressure 116/59 112/61 116/59 O2 Sat by Pulse 100 Oximetry 03/27/19 03/27/19 03/27/19 11:00 11:30 12:00 Temperature 98.4 F Pulse Rate 90 84 80 Pulse Rate [ 80 From Monitor] Respiratory 15 14 16 Rate Blood Pressure 115/58 125/53 122/53 O2 Sat by Pulse 100 Oximetry 03/27/19 03/27/19 03/27/19 12:30 12:35 13:00 Temperature Pulse Rate 90 85 88 Pulse Rate [ From Monitor] Respiratory 16 17 17 Rate Blood Pressure 132/60 132/60 133/61 O2 Sat by Pulse 99 Oximetry 03/27/19 03/27/19 03/27/19 13:30 14:00 14:30 Temperature Pulse Rate 83 79 77 Pulse Rate [ From Monitor] Respiratory 18 14 14 Rate Blood Pressure 113/46 122/50 127/51 O2 Sat by Pulse 99 Oximetry 03/27/19 03/27/19 03/27/19 15:01 15:30 16:00 Temperature 97.9 F Pulse Rate 82 78 84 Pulse Rate [ 84 From Monitor] Respiratory 15 16 16 Rate Blood Pressure 140/62 113/59 O2 Sat by Pulse 100 100 100 Oximetry 03/27/19 03/27/19 16:01 16:30 Temperature Pulse Rate 82 80 Pulse Rate [ From Monitor] Respiratory 19 15 Rate Blood Pressure 107/53 122/53 O2 Sat by Pulse 99 99 Oximetry - General Apperance Constitutional: acutely ill - EENT EENT: ATNC, PERRL, mucous membranes moist - Respiratory Respiratory: decreased breath sounds - Cardiovascular Cardiovascular: regular rate, normal S1, normal S2 Extremities: no clubbing, cyanosis, no inflammation - Gastrointestinal Gastrointestinal: normoactive bowel sounds, soft, non-tender - Integumentary Integumentary: normal - Laboratory Findings CBC and BMP: 03/26/19 04:49 03/27/19 04:42 Abnormal Lab Findings: Abnormal Labs 03/18/19 03/18/19 03/18/19 14:17 14:17 14:17 WBC 38.1 H RBC Hgb Hct MCV 83 L MCH 27 L Plt Count 740 H Lymph % (Auto) Lymph # [place] # Seg Neutrophils % Seg Neuts % (Manual) 93.0 H Lymphocytes % (Manual) 2.5 L Monocytes % (Manual) Seg Neutrophils # Seg Neutrophils # Man 35.4 H Lymphocytes # (Manual) 1.0 L Monocytes # (Manual) 1.5 H Thrombin Time 14.7 L ABG pH ABG pO2 ABG O2 Saturation ABG Base Excess ABG Hemoglobin Sodium Potassium Chloride 94.9 L Carbon Dioxide 20 L BUN 34 H Creatinine 2.7 H Glucose 244 H POC Glucose Lactic Acid Calcium 10.6 H Phosphorus Total Creatine Kinase Troponin T 0.297 H* Total Protein Albumin Cholesterol 264 H LDL Cholesterol Direct 182 H Ur Specific [place] Urine WBC (Auto) Urine Creatinine 03/18/19 03/18/19 03/18/19 15:33 15:33 17:55 WBC RBC Hgb Hct MCV MCH Plt Count Lymph % (Auto) Lymph # [place] # Seg Neutrophils % Seg Neuts % (Manual) Lymphocytes % (Manual) Monocytes % (Manual) Seg Neutrophils # Seg Neutrophils # Man Lymphocytes # (Manual) Monocytes # (Manual) Thrombin Time ABG pH ABG pO2 ABG O2 Saturation ABG Base Excess ABG Hemoglobin Sodium Potassium Chloride Carbon Dioxide BUN Creatinine Glucose POC Glucose Lactic Acid 2.70 H* 3.00 H* Calcium Phosphorus Total Creatine Kinase 2896 H Troponin T Total Protein Albumin Cholesterol LDL Cholesterol Direct Ur Specific [place] Urine WBC (Auto) Urine Creatinine 03/18/19 03/18/19 03/18/19 20:22 Unknown Unknown WBC RBC Hgb Hct MCV MCH Plt Count Lymph % (Auto) Lymph # [place] # Seg Neutrophils % Seg Neuts % (Manual) Lymphocytes % (Manual) Monocytes % (Manual) Seg Neutrophils # Seg Neutrophils # Man Lymphocytes # (Manual) Monocytes # (Manual) Thrombin Time ABG pH ABG pO2 183.5 H ABG O2 Saturation 99.2 H ABG Base Excess ABG Hemoglobin 12.7 L Sodium Potassium Chloride Carbon Dioxide BUN Creatinine Glucose POC Glucose Lactic Acid 3.00 H* Calcium Phosphorus Total Creatine Kinase Troponin T Total Protein Albumin Cholesterol LDL Cholesterol Direct Ur Specific [place] 1.046 H Urine WBC (Auto) 23.0 H Urine Creatinine 03/19/19 03/19/19 03/19/19 01:38 02:56 02:56 WBC 25.4 H RBC Hgb 11.3 L Hct 34.1 L D MCV 83 L MCH 27 L Plt Count 496 H Lymph % (Auto) Lymph # [place] # Seg Neutrophils % Seg Neuts % (Manual) 90.0 H Lymphocytes % (Manual) 3.0 L Monocytes % (Manual) Seg Neutrophils # Seg Neutrophils # Man 22.9 H Lymphocytes # (Manual) 0.8 L Monocytes # (Manual) 1.8 H Thrombin Time ABG pH ABG pO2 ABG O2 Saturation ABG Base Excess ABG Hemoglobin Sodium Potassium Chloride Carbon Dioxide 20 L BUN 34 H Creatinine 2.5 H Glucose 208 H POC Glucose Lactic Acid Calcium Phosphorus Total Creatine Kinase Troponin T Total Protein 5.9 L Albumin 2.9 L Cholesterol LDL Cholesterol Direct Ur Specific [place] Urine WBC (Auto) Urine Creatinine 142.9 H 03/19/19 03/19/19 03/19/19 05:12 14:39 23:08 WBC RBC Hgb Hct MCV MCH Plt Count Lymph % (Auto) Lymph # [place] # Seg Neutrophils % Seg Neuts % (Manual) Lymphocytes % (Manual) Monocytes % (Manual) Seg Neutrophils # Seg Neutrophils # Man Lymphocytes # (Manual) Monocytes # (Manual) Thrombin Time ABG pH ABG pO2 201.8 H ABG O2 Saturation 99.3 H ABG Base Excess -2.8 L ABG Hemoglobin Sodium Potassium Chloride Carbon Dioxide BUN Creatinine Glucose POC Glucose 185 H Lactic Acid Calcium Phosphorus Total Creatine Kinase Troponin T 0.200 H* D Total Protein Albumin Cholesterol LDL Cholesterol Direct Ur Specific [place] Urine WBC (Auto) Urine Creatinine 03/20/19 03/20/19 03/20/19 00:12 03:44 05:19 WBC RBC Hgb Hct MCV MCH Plt Count Lymph % (Auto) Lymph # [place] # Seg Neutrophils % Seg Neuts % (Manual) Lymphocytes % (Manual) Monocytes % (Manual) Seg Neutrophils # Seg Neutrophils # Man Lymphocytes # (Manual) Monocytes # (Manual) Thrombin Time ABG pH ABG pO2 122.8 H ABG O2 Saturation ABG Base Excess -3.0 L ABG Hemoglobin 8.9 L Sodium Potassium Chloride Carbon Dioxide BUN Creatinine Glucose POC Glucose 193 H 202 H Lactic Acid Calcium Phosphorus Total Creatine Kinase Troponin T Total Protein Albumin Cholesterol LDL Cholesterol Direct Ur Specific [place] Urine WBC (Auto) Urine Creatinine 03/20/19 03/20/19 03/20/19 05:26 05:26 05:26 WBC 19.5 H RBC Hgb 10.8 L Hct 33.0 L MCV 82 L MCH 27 L Plt Count Lymph % (Auto) 5.4 L Lymph # 1.1 L [place] # 1.4 H Seg Neutrophils % 86.8 H Seg Neuts % (Manual) Lymphocytes % (Manual) Monocytes % (Manual) Seg Neutrophils # 16.9 H Seg Neutrophils # Man Lymphocytes # (Manual) Monocytes # (Manual) Thrombin Time ABG pH ABG pO2 ABG O2 Saturation ABG Base Excess ABG Hemoglobin Sodium Potassium Chloride 110.5 H Carbon Dioxide 17 L BUN 41 H Creatinine 2.6 H Glucose 199 H POC Glucose Lactic Acid Calcium Phosphorus Total Creatine Kinase 396 H Troponin T 0.191 H* Total Protein Albumin Cholesterol LDL Cholesterol Direct Ur Specific [place] Urine WBC (Auto) Urine Creatinine 03/20/19 03/20/19 03/20/19 11:33 15:23 18:28 WBC RBC Hgb Hct MCV MCH Plt Count Lymph % (Auto) Lymph # [place] # Seg Neutrophils % Seg Neuts % (Manual) Lymphocytes % (Manual) Monocytes % (Manual) Seg Neutrophils # Seg Neutrophils # Man Lymphocytes # (Manual) Monocytes # (Manual) Thrombin Time ABG pH ABG pO2 ABG O2 Saturation ABG Base Excess ABG Hemoglobin Sodium Potassium Chloride Carbon Dioxide BUN Creatinine Glucose POC Glucose 196 H 190 H Lactic Acid Calcium Phosphorus Total Creatine Kinase Troponin T 0.214 H* Total Protein Albumin Cholesterol LDL Cholesterol Direct Ur Specific [place] Urine WBC (Auto) Urine Creatinine 03/20/19 03/21/19 03/21/19 23:14 03:29 04:07 WBC RBC Hgb Hct MCV MCH Plt Count Lymph % (Auto) Lymph # [place] # Seg Neutrophils % Seg Neuts % (Manual) Lymphocytes % (Manual) Monocytes % (Manual) Seg Neutrophils # Seg Neutrophils # Man Lymphocytes # (Manual) Monocytes # (Manual) Thrombin Time ABG pH 7.483 H ABG pO2 97.5 H ABG O2 Saturation ABG Base Excess ABG Hemoglobin 8.5 L Sodium 146 H Potassium 3.1 L D Chloride 109.8 H Carbon Dioxide BUN 35 H Creatinine 1.9 H Glucose 200 H POC Glucose 190 H Lactic Acid Calcium Phosphorus 1.80 L Total Creatine Kinase Troponin T Total Protein Albumin Cholesterol LDL Cholesterol Direct Ur Specific [place] Urine WBC (Auto) Urine Creatinine 03/21/19 03/21/19 03/21/19 05:22 11:52 18:06 WBC RBC Hgb Hct MCV MCH Plt Count Lymph % (Auto) Lymph # [place] # Seg Neutrophils % Seg Neuts % (Manual) Lymphocytes % (Manual) Monocytes % (Manual) Seg Neutrophils # Seg Neutrophils # Man Lymphocytes # (Manual) Monocytes # (Manual) Thrombin Time ABG pH ABG pO2 ABG O2 Saturation ABG Base Excess ABG Hemoglobin Sodium Potassium Chloride Carbon Dioxide BUN Creatinine Glucose POC Glucose 189 H 236 H 164 H Lactic Acid Calcium Phosphorus Total Creatine Kinase Troponin T Total Protein Albumin Cholesterol LDL Cholesterol Direct Ur Specific [place] Urine WBC (Auto) Urine Creatinine 03/21/19 03/22/19 03/22/19 23:36 04:47 04:47 WBC RBC 3.62 L Hgb 10.1 L Hct 29.9 L MCV 83 L MCH Plt Count Lymph % (Auto) Lymph # [place] # Seg Neutrophils % Seg Neuts % (Manual) 83.0 H Lymphocytes % (Manual) 8.0 L Monocytes % (Manual) 8.0 H Seg Neutrophils # Seg Neutrophils # Man 8.8 H Lymphocytes # (Manual) 0.8 L Monocytes # (Manual) Thrombin Time ABG pH ABG pO2 ABG O2 Saturation ABG Base Excess ABG Hemoglobin Sodium Potassium Chloride 107.8 H Carbon Dioxide 19 L BUN 28 H Creatinine 1.6 H Glucose 198 H POC Glucose 211 H Lactic Acid Calcium Phosphorus 2.40 L D Total Creatine Kinase Troponin T Total Protein Albumin Cholesterol LDL Cholesterol Direct Ur Specific [place] Urine WBC (Auto) Urine Creatinine 03/22/19 03/22/19 03/22/19 05:20 05:29 10:10 WBC RBC Hgb Hct MCV MCH Plt Count Lymph % (Auto) Lymph # [place] # Seg Neutrophils % Seg Neuts % (Manual) Lymphocytes % (Manual) Monocytes % (Manual) Seg Neutrophils # Seg Neutrophils # Man Lymphocytes # (Manual) Monocytes # (Manual) Thrombin Time ABG pH 7.481 H 7.483 H ABG pO2 74.6 L 79.4 L ABG O2 Saturation ABG Base Excess ABG Hemoglobin 9.7 L 9.2 L Sodium Potassium Chloride Carbon Dioxide BUN Creatinine Glucose POC Glucose 202 H Lactic Acid Calcium Phosphorus Total Creatine Kinase Troponin T Total Protein Albumin Cholesterol LDL Cholesterol Direct Ur Specific [place] Urine WBC (Auto) Urine Creatinine 03/22/19 03/22/19 03/22/19 12:29 17:34 23:16 WBC RBC Hgb Hct MCV MCH Plt Count Lymph % (Auto) Lymph # [place] # Seg Neutrophils % Seg Neuts % (Manual) Lymphocytes % (Manual) Monocytes % (Manual) Seg Neutrophils # Seg Neutrophils # Man Lymphocytes # (Manual) Monocytes # (Manual) Thrombin Time ABG pH ABG pO2 ABG O2 Saturation ABG Base Excess ABG Hemoglobin Sodium Potassium Chloride Carbon Dioxide BUN Creatinine Glucose POC Glucose 234 H 225 H 205 H Lactic Acid Calcium Phosphorus Total Creatine Kinase Troponin T Total Protein Albumin Cholesterol LDL Cholesterol Direct Ur Specific [place] Urine WBC (Auto) Urine Creatinine 03/23/19 03/23/19 03/23/19 03:27 03:50 04:17 WBC RBC Hgb Hct MCV MCH Plt Count Lymph % (Auto) Lymph # [place] # Seg Neutrophils % Seg Neuts % (Manual) Lymphocytes % (Manual) Monocytes % (Manual) Seg Neutrophils # Seg Neutrophils # Man Lymphocytes # (Manual) Monocytes # (Manual) Thrombin Time ABG pH 7.486 H ABG pO2 75.2 L ABG O2 Saturation ABG Base Excess ABG Hemoglobin 9.6 L Sodium Potassium Chloride Carbon Dioxide BUN Creatinine Glucose POC Glucose 113 H 173 H Lactic Acid Calcium Phosphorus Total Creatine Kinase Troponin T Total Protein Albumin Cholesterol LDL Cholesterol Direct Ur Specific [place] Urine WBC (Auto) Urine Creatinine 03/23/19 03/23/19 03/23/19 05:12 12:32 18:20 WBC RBC Hgb Hct MCV MCH Plt Count Lymph % (Auto) Lymph # [place] # Seg Neutrophils % Seg Neuts % (Manual) Lymphocytes % (Manual) Monocytes % (Manual) Seg Neutrophils # Seg Neutrophils # Man Lymphocytes # (Manual) Monocytes # (Manual) Thrombin Time ABG pH ABG pO2 ABG O2 Saturation ABG Base Excess ABG Hemoglobin Sodium Potassium Chloride 107.3 H Carbon Dioxide 21 L BUN 27 H Creatinine 1.6 H Glucose 166 H POC Glucose 212 H 190 H Lactic Acid Calcium Phosphorus Total Creatine Kinase Troponin T Total Protein Albumin Cholesterol LDL Cholesterol Direct Ur Specific [place] Urine WBC (Auto) Urine Creatinine 03/23/19 03/24/19 03/24/19 23:40 05:15 05:24 WBC RBC Hgb Hct MCV MCH Plt Count Lymph % (Auto) Lymph # [place] # Seg Neutrophils % Seg Neuts % (Manual) Lymphocytes % (Manual) Monocytes % (Manual) Seg Neutrophils # Seg Neutrophils # Man Lymphocytes # (Manual) Monocytes # (Manual) Thrombin Time ABG pH ABG pO2 ABG O2 Saturation ABG Base Excess ABG Hemoglobin Sodium Potassium Chloride Carbon Dioxide 21 L BUN 28 H Creatinine Glucose 139 H POC Glucose 172 H 128 H Lactic Acid Calcium Phosphorus Total Creatine Kinase Troponin T Total Protein Albumin Cholesterol LDL Cholesterol Direct Ur Specific [place] Urine WBC (Auto) Urine Creatinine 03/24/19 03/24/19 03/24/19 12:21 17:16 23:27 WBC RBC Hgb Hct MCV MCH Plt Count Lymph % (Auto) Lymph # [place] # Seg Neutrophils % Seg Neuts % (Manual) Lymphocytes % (Manual) Monocytes % (Manual) Seg Neutrophils # Seg Neutrophils # Man Lymphocytes # (Manual) Monocytes # (Manual) Thrombin Time ABG pH ABG pO2 ABG O2 Saturation ABG Base Excess ABG Hemoglobin Sodium Potassium Chloride Carbon Dioxide BUN Creatinine Glucose POC Glucose 213 H 200 H 189 H Lactic Acid Calcium Phosphorus Total Creatine Kinase Troponin T Total Protein Albumin Cholesterol LDL Cholesterol Direct Ur Specific [place] Urine WBC (Auto) Urine Creatinine 03/25/19 03/25/19 03/25/19 01:57 04:23 05:24 WBC RBC Hgb Hct MCV MCH Plt Count Lymph % (Auto) Lymph # [place] # Seg Neutrophils % Seg Neuts % (Manual) Lymphocytes % (Manual) Monocytes % (Manual) Seg Neutrophils # Seg Neutrophils # Man Lymphocytes # (Manual) Monocytes # (Manual) Thrombin Time ABG pH 7.470 H ABG pO2 73.5 L ABG O2 Saturation ABG Base Excess ABG Hemoglobin 7.5 L Sodium 134 L Potassium Chloride Carbon Dioxide 21 L BUN 28 H Creatinine Glucose 179 H POC Glucose 198 H Lactic Acid Calcium 8.3 L Phosphorus Total Creatine Kinase Troponin T Total Protein Albumin Cholesterol LDL Cholesterol Direct Ur Specific [place] Urine WBC (Auto) Urine Creatinine 03/25/19 03/25/19 03/25/19 12:23 17:31 23:59 WBC RBC Hgb Hct MCV MCH Plt Count Lymph % (Auto) Lymph # [place] # Seg Neutrophils % Seg Neuts % (Manual) Lymphocytes % (Manual) Monocytes % (Manual) Seg Neutrophils # Seg Neutrophils # Man Lymphocytes # (Manual) Monocytes # (Manual) Thrombin Time ABG pH ABG pO2 ABG O2 Saturation ABG Base Excess ABG Hemoglobin Sodium Potassium Chloride Carbon Dioxide BUN Creatinine Glucose POC Glucose 184 H 181 H 198 H Lactic Acid Calcium Phosphorus Total Creatine Kinase Troponin T Total Protein Albumin Cholesterol LDL Cholesterol Direct Ur Specific [place] Urine WBC (Auto) Urine Creatinine 03/26/19 03/26/19 03/26/19 04:49 04:49 05:44 WBC 12.4 H RBC 3.47 L Hgb 9.6 L Hct 28.6 L MCV 82 L MCH Plt Count Lymph % (Auto) 6.3 L Lymph # 0.8 L [place] # Seg Neutrophils % 88.2 H Seg Neuts % (Manual) Lymphocytes % (Manual) Monocytes % (Manual) Seg Neutrophils # 10.9 H Seg Neutrophils # Man Lymphocytes # (Manual) Monocytes # (Manual) Thrombin Time ABG pH ABG pO2 ABG O2 Saturation ABG Base Excess ABG Hemoglobin Sodium 132 L Potassium Chloride 96.8 L Carbon Dioxide 21 L BUN 29 H Creatinine Glucose 225 H POC Glucose 219 H Lactic Acid Calcium Phosphorus Total Creatine Kinase Troponin T Total Protein Albumin Cholesterol LDL Cholesterol Direct Ur Specific [place] Urine WBC (Auto) Urine Creatinine 03/26/19 03/26/19 03/26/19 12:40 18:27 23:25 WBC RBC Hgb Hct MCV MCH Plt Count Lymph % (Auto) Lymph # [place] # Seg Neutrophils % Seg Neuts % (Manual) Lymphocytes % (Manual) Monocytes % (Manual) Seg Neutrophils # Seg Neutrophils # Man Lymphocytes # (Manual) Monocytes # (Manual) Thrombin Time ABG pH ABG pO2 ABG O2 Saturation ABG Base Excess ABG Hemoglobin Sodium Potassium Chloride Carbon Dioxide BUN Creatinine Glucose POC Glucose 236 H 216 H 227 H Lactic Acid Calcium Phosphorus Total Creatine Kinase Troponin T Total Protein Albumin Cholesterol LDL Cholesterol Direct Ur Specific [place] Urine WBC (Auto) Urine Creatinine 03/27/19 03/27/19 03/27/19 04:42 05:27 12:04 WBC RBC Hgb Hct MCV MCH Plt Count Lymph % (Auto) Lymph # [place] # Seg Neutrophils % Seg Neuts % (Manual) Lymphocytes % (Manual) Monocytes % (Manual) Seg Neutrophils # Seg Neutrophils # Man Lymphocytes # (Manual) Monocytes # (Manual) Thrombin Time ABG pH ABG pO2 ABG O2 Saturation ABG Base Excess ABG Hemoglobin Sodium Potassium Chloride Carbon Dioxide BUN 38 H Creatinine 1.9 H Glucose 182 H POC Glucose 188 H 226 H Lactic Acid Calcium Phosphorus Total Creatine Kinase Troponin T Total Protein Albumin Cholesterol LDL Cholesterol Direct Ur Specific [place] Urine WBC (Auto) Urine Creatinine 03/27/19 14:50 WBC RBC Hgb Hct MCV MCH Plt Count Lymph % (Auto) Lymph # [place] # Seg Neutrophils % Seg Neuts % (Manual) Lymphocytes % (Manual) Monocytes % (Manual) Seg Neutrophils # Seg Neutrophils # Man Lymphocytes # (Manual) Monocytes # (Manual) Thrombin Time ABG pH ABG pO2 108.8 H ABG O2 Saturation ABG Base Excess -3.1 L ABG Hemoglobin Sodium Potassium Chloride Carbon Dioxide BUN Creatinine Glucose POC Glucose Lactic Acid Calcium Phosphorus Total Creatine Kinase Troponin T Total Protein Albumin Cholesterol LDL Cholesterol Direct Ur Specific [place] Urine WBC (Auto) Urine Creatinine
[2019-03-28] MEDS: INSULIN LISPRO 100 UNIT/ML SUB-Q SCH ×4 (01:45→18:21)
[2019-03-28] MEDS: VANCOMYCIN 250 MG/10 ML ORAL LIQD PO SCH ×4 (01:45→18:21)
[2019-03-28 04:32] LABS: Hematocrit 24.1 % (35.5-45.6); Hemoglobin 8.1 gm/dl (11.8-15.2); Mean Corpuscular HGB Conc 34 % (32-34); Mean Corpuscular Volume 82 fl (84-94); Platelet Count 402 K/mm3 (140-440); Red Blood Count 2.93 M/mm3 (3.65-5.03); Red Cell Distribution Width 14.9 % (13.2-15.2)
[2019-03-28 04:54] LABS: Calcium 8.8 mg/dL (8.4-10.2)
[2019-03-28 06:08] LABS: Band Neutrophils # (Manual) 0.5 K/mm3; Basophils % (Manual) 0 % (0.0-1.8); Total Cells Counted 100
[2019-03-28 06:11] LABS: Platelet Estimate Consistent w Auto
--- NOTE | 2019-03-28 09:03 | Progress Note ---
Assessment and Plan Assessment and plan: / Acute respiratory failure with hypoxia Patient intubated and placed on ventilatory support, daily SBT, sedation holiday, /new onset diarrhea since 03/25/19 - restarted abx -vanco po, C.def ordered /New GPC bacteremia: 02/28 bottles 03/26/19, follow up final results. Continue IV Vancomycin for now. /Acute encephalopathy -improving likely from SIRS vs CRISTÓBAL Vs underlying seizure monitor clinically. MRI brain w/o any acute change, CSF study negative cont to treat underlying cause, neurology following / SIRS, likely from new onset seizure Sepsis with possible meningitis - ruled out cannot r/o meningitis as presented with seizure, encephalopathy and elevated white count Admited to ICU with Sepsis protocol: IV fluid resuscitation therapy, serial CBC, BMP, lactic acid level, IV abx, ordered Cx negative blood cx report, URINE for MSSA - could be a skin contaminant ordered for LP - placed on Iv coverage for viral and bacterial meningitis, ID consulted s/p LP 03/20/19 - study result not convincing for bacterial meningitis, also negative for viral PCR cont to treat for seizure, wbc trended down, d/aria abx for meningitis / CRISTÓBAL (acute kidney injury): likely vasomotor nephropathy - Cr slightly increased today cont IV fluid resuscitation therapy, monitor urine output every shift, strict I's/O, Nephrology following /hypokalemia, repleted, follow BMP / metabolic Acidosis - due to sepsis vs CRISTÓBAL - resolved IV fluid resuscitation therapy, monitor urine output every shift, s/p IV bicarbonate therapy. / HLD (hyperlipidemia) TF diet for now, statin therapy as clinically indicated. / DM type 2 - SSI as needed /Acute onset seizure, started on keppra - EEG showed + for seizure, neurology recomsulted /DVT prophylaxis SCD to bilateral lower extremities while in bed, prophylactic heparin. The high probability of a clinically significant, sudden or life threatening deterioration of the [cardiac, pulmonary, renal, neurologic] system(s) required my full and direct attention, intervention and personal management. The aggregate critical care time was [36] minutes. This time is in addition to time spent performing reported procedures but includes the following: [x] Data Review and interpretation [x] Patient assessment and monitoring of vital signs [x] Documentation [x] Medication orders and management History Interval history: Still intubated Fever on 03/26 Hospitalist Physical - Physical exam Narrative exam: General appearance: Present: other (intubated), NAD, opens eyes - EENT Eyes: no scleral icterus, no conjunctival injection ENT: clear oral mucosa Ears: bilateral: normal - Neck Neck: no rigidity, no enlarged thyroid - Respiratory Respiratory effort: other (on mechanical ventilation) Respiratory: bilateral: CTA - Cardiovascular Rhythm: regular Heart Sounds: Present: S1 & S2. Absent: gallop, rub Extremities: pulses intact, No edema, normal color - Gastrointestinal General gastrointestinal: Present: soft, non-tender, non-distended, normal bowel sounds - Integumentary Integumentary: clear, warm, dry - Musculoskeletal Musculoskeletal: no joint swelling - Neurologic Neurologic: moves extremities - does not follow commend but opens his eyes, off sedation - Psychiatric Psychiatric: other (intubated) - Constitutional Vitals: Temp Pulse Resp BP Pulse Ox 99.3 F 91 H 24 112/58 98 03/28/19 03:13 03/28/19 08:01 03/28/19 08:01 03/28/19 08:01 03/28/19 08:01 General appearance: Present: other (intubated and sedated) Results - Labs CBC & Chem 7: 03/29/19 06:17 03/29/19 06:17 Labs: Laboratory Last Values WBC 15.3 K/mm3 (4.5-11.0) H 03/28/19 04:03 RBC 2.93 M/mm3 (3.65-5.03) L 03/28/19 04:03 Hgb 8.1 gm/dl (11.8-15.2) L 03/28/19 04:03 Hct 24.1 % (35.5-45.6) L 03/28/19 04:03 MCV 82 fl (84-94) L 03/28/19 04:03 MCH 28 pg (28-32) 03/28/19 04:03 MCHC 34 % (32-34) 03/28/19 04:03 RDW 14.9 % (13.2-15.2) 03/28/19 04:03 Plt Count 402 K/mm3 (140-440) 03/28/19 04:03 Lymph % (Auto) 6.3 % (13.4-35.0) L 03/26/19 04:49 [place] % (Auto) 4.5 % (0.0-7.3) 03/26/19 04:49 Eos % (Auto) 0.4 % (0.0-4.3) 03/26/19 04:49 Baso % (Auto) 0.6 % (0.0-1.8) 03/26/19 04:49 Lymph # 0.8 K/mm3 (1.2-5.4) L 03/26/19 04:49 [place] # 0.6 K/mm3 (0.0-0.8) 03/26/19 04:49 Eos # 0.1 K/mm3 (0.0-0.4) 03/26/19 04:49 Baso # 0.1 K/mm3 (0.0-0.1) 03/26/19 04:49 Add Manual Diff Complete 03/28/19 04:03 Total Counted 100 03/28/19 04:03 Seg Neutrophils % 88.2 % (40.0-70.0) H 03/26/19 04:49 Seg Neuts % (Manual) 85.0 % (40.0-70.0) H 03/28/19 04:03 Band Neutrophils % 3.0 % 03/28/19 04:03 Lymphocytes % (Manual) 6.0 % (13.4-35.0) L 03/28/19 04:03 Reactive Lymphs % (Man) 0 % 03/28/19 04:03 Monocytes % (Manual) 5.0 % (0.0-7.3) 03/28/19 04:03 Eosinophils % (Manual) 1.0 % (0.0-4.3) 03/28/19 04:03 Basophils % (Manual) 0 % (0.0-1.8) 03/28/19 04:03 Metamyelocytes % 0 % 03/28/19 04:03 Myelocytes % 0 % 03/28/19 04:03 Promyelocytes % 0 % 03/28/19 04:03 Blast Cells % 0 % 03/28/19 04:03 Nucleated RBC % Not Reportable 03/28/19 04:03 Seg Neutrophils # 10.9 K/mm3 (1.8-7.7) H 03/26/19 04:49 Seg Neutrophils # Man 13.0 K/mm3 (1.8-7.7) H 03/28/19 04:03 Band Neutrophils # 0.5 K/mm3 03/28/19 04:03 Lymphocytes # (Manual) 0.9 K/mm3 (1.2-5.4) L 03/28/19 04:03 Abs React Lymphs (Man) 0.0 K/mm3 03/28/19 04:03 Monocytes # (Manual) 0.8 K/mm3 (0.0-0.8) 03/28/19 04:03 Eosinophils # (Manual) 0.2 K/mm3 (0.0-0.4) 03/28/19 04:03 Basophils # (Manual) 0.0 K/mm3 (0.0-0.1) 03/28/19 04:03 Metamyelocytes # 0.0 K/mm3 03/28/19 04:03 Myelocytes # 0.0 K/mm3 03/28/19 04:03 Promyelocytes # 0.0 K/mm3 03/28/19 04:03 Blast Cells # 0.0 K/mm3 03/28/19 04:03 Pathologist Review 03/18/19 14:17 WBC Morphology Not Reportable 03/28/19 04:03 Hypersegmented Neuts Not Reportable 03/28/19 04:03 Hyposegmented Neuts Not Reportable 03/28/19 04:03 Hypogranular Neuts Not Reportable 03/28/19 04:03 Smudge Cells Not Reportable 03/28/19 04:03 Toxic Granulation Not Reportable 03/28/19 04:03 Toxic Vacuolation Not Reportable 03/28/19 04:03 Dohle Bodies Not Reportable 03/28/19 04:03 Pelger-Huet Anomaly Not Reportable 03/28/19 04:03 Chelsi Rods Not Reportable 03/28/19 04:03 Platelet Estimate Consistent w auto 03/28/19 04:03 Clumped Platelets Not Reportable 03/28/19 04:03 Plt Clumps, EDTA Not Reportable 03/28/19 04:03 Large Platelets Not Reportable 03/28/19 04:03 Giant Platelets Not Reportable 03/28/19 04:03 Platelet Satelliting Not Reportable 03/28/19 04:03 Plt Morphology Comment Not Reportable 03/28/19 04:03 RBC Morphology Not Reportable 03/28/19 04:03 Dimorphic RBCs Not Reportable 03/28/19 04:03 Polychromasia Not Reportable 03/28/19 04:03 Hypochromasia Not Reportable 03/28/19 04:03 Poikilocytosis Not Reportable 03/28/19 04:03 Anisocytosis Not Reportable 03/28/19 04:03 Microcytosis Not Reportable 03/28/19 04:03 Macrocytosis Not Reportable 03/28/19 04:03 Spherocytes Not Reportable 03/28/19 04:03 Pappenheimer Bodies Not Reportable 03/28/19 04:03 Sickle Cells Not Reportable 03/28/19 04:03 Target Cells Not Reportable 03/28/19 04:03 Tear Drop Cells Not Reportable 03/28/19 04:03 Ovalocytes Not Reportable 03/28/19 04:03 Helmet Cells Not Reportable 03/28/19 04:03 [place] Bodies Not Reportable 03/28/19 04:03 [place] Rings Not Reportable 03/28/19 04:03 [place] Cells Not Reportable 03/28/19 04:03 Bite Cells Not Reportable 03/28/19 04:03 Crenated Cell Not Reportable 03/28/19 04:03 Elliptocytes Rare 03/28/19 04:03 Acanthocytes (Spur) Not Reportable 03/28/19 04:03 Rouleaux Not Reportable 03/28/19 04:03 Hemoglobin C Crystals Not Reportable 03/28/19 04:03 Schistocytes Not Reportable 03/28/19 04:03 Malaria parasites Not Reportable 03/28/19 04:03 Sharif Bodies Not Reportable 03/28/19 04:03 Hem Pathologist Commnt No 03/28/19 04:03 PT 14.4 Sec. (12.2-14.9) 03/18/19 14:17 INR 1.11 (0.87-1.13) 03/18/19 14:17 APTT 33.5 Sec. (24.2-36.6) 03/18/19 14:17 Thrombin Time 14.7 Sec. (15.1-19.6) L 03/18/19 14:17 ABG pH 7.421 pH Units (7.350-7.450) 03/27/19 14:50 ABG pCO2 31.7 mm Hg 03/27/19 14:50 ABG pO2 108.8 mm Hg (80.0-90.0) H 03/27/19 14:50 ABG HCO3 20.2 mmol/L (20.0-26.0) 03/27/19 14:50 ABG O2 Saturation 98.0 % (95.0-99.0) 03/27/19 14:50 ABG O2 Content 22.0 (0.0-44) 03/27/19 14:50 ABG Base Excess -3.1 mmol/L (-2.0-3.0) L 03/27/19 14:50 ABG Hemoglobin 16.2 gm/dl (14.0-18.0) 03/27/19 14:50 ABG Carboxyhemoglobin 1.4 % (0.0-5.0) 03/27/19 14:50 ABG Methemoglobin 0.6 % (0.0-1.5) 03/27/19 14:50 Oxyhemoglobin 96.1 % (95.0-99.0) 03/27/19 14:50 FiO2 25 % 03/27/19 14:50 Sodium 136 mmol/L (137-145) L 03/28/19 04:03 Potassium 3.7 mmol/L (3.6-5.0) 03/28/19 04:03 Chloride 99.2 mmol/L (98-107) 03/28/19 04:03 Carbon Dioxide 21 mmol/L (22-30) L 03/28/19 04:03 Anion Gap 20 mmol/L 03/28/19 04:03 BUN 36 mg/dL (9-20) H 03/28/19 04:03 Creatinine 1.8 mg/dL (0.8-1.5) H 03/28/19 04:03 Estimated GFR 38 ml/min 03/28/19 04:03 BUN/Creatinine Ratio 20 % 03/28/19 04:03 Glucose 163 mg/dL (75-100) H 03/28/19 04:03 POC Glucose 157 (70-105) H 03/28/19 05:37 Lactic Acid 1.70 mmol/L (0.7-2.0) 03/18/19 23:41 Calcium 8.8 mg/dL (8.4-10.2) 03/28/19 04:03 Phosphorus 3.10 mg/dL (2.5-4.5) 03/25/19 04:23 Magnesium 1.90 mg/dL (1.7-2.3) 03/21/19 04:07 Total Bilirubin 0.30 mg/dL (0.1-1.2) 03/19/19 02:56 AST 30 units/L (5-40) 03/19/19 02:56 ALT 17 units/L (7-56) 03/19/19 02:56 Alkaline Phosphatase 100 units/L (35-129) 03/19/19 02:56 Total Creatine Kinase 396 units/L (55-170) H 03/20/19 05:26 Troponin T 0.214 ng/mL (0.00-0.029) H* 03/20/19 15:23 Total Protein 5.9 g/dL (6.3-8.2) L 03/19/19 02:56 Albumin 2.9 g/dL (3.9-5) L 03/19/19 02:56 Albumin/Globulin Ratio 1.0 % 03/19/19 02:56 Triglycerides 127 mg/dL (2-149) 03/18/19 14:17 Cholesterol 264 mg/dL (50-199) H 03/18/19 14:17 LDL Cholesterol Direct 182 mg/dL (50-130) H 03/18/19 14:17 HDL Cholesterol 58 mg/dL (40-59) 03/18/19 14:17 Cholesterol/HDL Ratio 4.55 % 03/18/19 14:17 Urine Color Yellow (Yellow) 03/18/19 Unknown Urine Turbidity Cloudy (Clear) 03/18/19 Unknown Urine pH 5.0 (5.0-7.0) 03/18/19 Unknown Ur Specific [place] 1.046 (1.003-1.030) H 03/18/19 Unknown Urine Protein 30 mg/dl mg/dL (Negative) 03/18/19 Unknown Urine Glucose (UA) 50 mg/dL (Negative) 03/18/19 Unknown Urine Ketones Neg mg/dL (Negative) 03/18/19 Unknown Urine Blood Lg (Negative) 03/18/19 Unknown Urine Nitrite Neg (Negative) 03/18/19 Unknown Urine Bilirubin Neg (Negative) 03/18/19 Unknown Urine Urobilinogen < 2.0 mg/dL (<2.0) 03/18/19 Unknown Ur Leukocyte Esterase Mod (Negative) 03/18/19 Unknown Urine WBC (Auto) 23.0 /HPF (0.0-6.0) H 03/18/19 Unknown Urine RBC (Auto) 6.0 /HPF (0.0-6.0) 03/18/19 Unknown U Epithel Cells (Auto) < 1.0 /HPF (0-13.0) 03/18/19 Unknown Urine Mucus Few /HPF 03/18/19 Unknown Urine Creatinine 142.9 mg/dL (0.1-20.0) H 03/19/19 01:38 Urine Sodium 14 mmol/L 03/19/19 01:38 CSF Appearance Clear 03/19/19 14:10 CSF Color Colorless 03/19/19 14:10 CSF WBC 97 /mm3 (1-10) 03/19/19 14:10 CSF RBC 720 /mm3 (0-0) 03/19/19 14:10 CSF Seg Neutrophils 94.0 % (0-6) 03/19/19 14:10 CSF Lymphocytes % 0 % (40-80) 03/19/19 14:10 CSF Reactive Lymphs 0 % 03/19/19 14:10 CSF Monocytes % 6.0 % (15-45) 03/19/19 14:10 CSF Eosinophils % 0 % 03/19/19 14:10 CSF Basophils 0 % 03/19/19 14:10 CSF Pathologist Review C 03/19/19 14:10 CSF Glucose 108 mg/dL 03/19/19 14:10 CSF Total Protein 66 mg/dL 03/19/19 14:10 CSF VDRL Nonreactive (Nonreactive) 03/19/19 14:10 Random Vancomycin 4.1 ug/mL (0-40.0) 03/22/19 04:47 C. difficile Tox (PCR) Positive (Negative) 03/26/19 21:20 Enterovirus (PCR) Cmmt See scanned results 03/19/19 14:10 HSV I DNA PCR See scanned results 03/19/19 14:10 HSV II DNA PCR See scanned results 03/19/19 14:10 VZV (Qnt-PCR) See scanned results 03/19/19 14:10 Active Medications - Current Medications Current Medications: Generic Name Dose Route Start Last Admin Trade Name Freq PRN Reason Stop Dose Admin Acetaminophen 650 mg 03/21/19 10:29 03/26/19 01:37 Tylenol PO 650 mg Q4H PRN Administration Pain MILD(1-3)/Fever >100.5/ROSA Lipase/Protease/Amylase 1 each 03/19/19 15:17 Pancreeliana Huggins 10,500 Unit FEEDTUBE PRN PRN For Clogged Feeding Tube Clonidine HCl 0.2 mg 03/22/19 12:00 03/22/19 12:39 Catapres-Tts Patch TD 0.2 mg Raymond MARTHA Administration Dextrose 0 ml 03/20/19 02:38 D50w (25gm) Syringe IV Q30MIN PRN Hypoglycemia Protocol Famotidine 20 mg 03/23/19 10:00 03/27/19 22:16 Pepcid PO 20 mg BID MARTHA Administration Heparin Sodium (Porcine) 5,000 unit 03/18/19 22:00 03/27/19 22:16 Heparin SUB-Q 5,000 unit Q12HR MARTHA Administration Hydralazine HCl 10 mg 03/22/19 02:51 03/26/19 00:38 Apresoline IV 10 mg Q4H PRN Administration Hypertension Hydrophilic Ointment 1 applic 03/21/19 17:45 Vaseline Lip Therapy TP Q2HR PRN Dry Lips Vancomycin HCl 1 gm in 250 mls @ 167.007 mls/hr 03/27/19 12:00 03/27/19 13:00 Vancomycin/Ns 1 Gm/250 Ml IV 167.007 mls/hr Q24H MARTHA Administration Insulin Human Lispro 0 unit 03/20/19 06:00 03/28/19 06:26 Humalog SUB-Q 2 unit Q6HR MARTHA Administration Protocol Levalbuterol HCl 0.63 mg 03/26/19 01:20 Xopenex IH Q8HRT PRN Shortness Of Breath Levetiracetam 750 mg 03/24/19 10:00 03/27/19 22:15 Keppra PO 750 mg BID MARTHA Administration Multi-Ingred Cream/Lotion/Oil/Oint 1 applic 03/21/19 17:45 Artificial Tears Ophth Oint OU Q4HR PRN Dry Eye(s) Scopolamine 1 each 03/26/19 14:00 03/26/19 13:55 Transderm-Scop TD 1 each Q3D MARTHA Administration Simple Syrup 15 ml 03/19/19 15:17 Simple Syrup FEEDTUBE PRN PRN Hypoglycemia Simple Syrup 30 ml 03/19/19 15:17 Simple Syrup FEEDTUBE PRN PRN Hypoglycemia Sodium Bicarbonate 325 mg 03/19/19 15:17 Sodium Bicarbonate FEEDTUBE PRN PRN For Clogged Feeding Tube Sodium Chloride 10 ml 03/18/19 22:00 03/27/19 22:16 Sodium Chloride Flush Syringe 10 Ml IV 10 ml BID MARTHA Administration Sodium Chloride 10 ml 03/18/19 17:32 Sodium Chloride Flush Syringe 10 Ml IV PRN PRN LINE FLUSH Vancomycin HCl 125 mg 03/27/19 13:00 03/28/19 06:27 Vancomycin Po PO 125 mg Q6HR MARTHA Administration Nutrition/Malnutrition Assess - Dietary Evaluation Nutrition/Malnutrition Findings: Nutrition Notes Start: 03/19/19 15:12 Freq: Status: Active Protocol: Document 03/27/19 11:21 CW (Rec: 03/27/19 12:02 CW [id number]) Co-Sign 03/27/19 11:21 LP Nutrition Notes Initial or Follow up Reassessment Current Diagnosis Acute Kidney Injury,Diabetes, Sepsis,Respiratory Failure, Hyperlipidemia Other Pertinent Diagnosis dehydration, AMS, metabolic encephalopathy Current Diet Vital AF 1.2 at 60ml/hr Labs/Tests BG 182 BUN 38 Cr 1.9 Pertinent Medications Humalog Height 5 ft 4 in Weight 86.183 kg [place] Body Weight (kg) 59.09 BMI 32.5 Weight change and time frame no wt change noted Subjective/Other Information FU for TF tolerance and Na labs. Pt's Na levels have stabilized at 137. BUN and Cr are slowly increasing. Pt TF regimen to be changed to Glucerna 1.2. Percent of energy/protein needs met: 93%/92% Burn Absent Trauma Absent Current % PO Negligible Minimum of two criteria No physical signs of malnutrition #1 Nutrition Diagnosis Inadequate oral intake Diagnosis Progress(for reassessment Continues documentation) Is patient on ventilator? Yes Is Patient Ambulatory and/or Out of Bed No REE-([facility]-confined to bed) 1850.988 Kcal/Kg value to use for calculation 17 Approximate Energy Requirements Using 1465 kcal/Kg Calculation Used for Recommendations Kcal/kg Additional Notes Protein: >118g (>2g/kg IBW) Fluid :1ml/kcal Nutrition Intervention Change Diet Order: TF Nutrition Support: Change TF to Glucerna 1.2 at 55 ml/hr. Flush with 85 ml q4h Kcal 1,584 Protein (gm) 79 Fluid (mL) 1,063 Goal #1 Meet at least 80% of kcal and protein needs via TF Anticipated Discharge Needs: Unable to determine at this time Follow-Up By: 03/30/19 Additional Comments FU for TF tolerance, Na lab
[2019-03-28] MEDS: VANCOMYCIN/NS 1 GM/250 ML 1 GM/250 ML BAG IV SCH (11:24)
[2019-03-28] MEDS: FAMOTIDINE 20 MG TAB PO SCH ×2 (11:24→22:10)
[2019-03-28] MEDS: levETIRAcetam 500 MG/5 ML ORAL LIQD PO SCH ×2 (11:25→22:09)
[2019-03-28] MEDS: HEPARIN 5,000 UNIT/1 ML VIAL SUB-Q SCH ×2 (11:25→22:11)
--- NOTE | 2019-03-28 15:07 | Progress Note ---
Assessment and Plan 1. Acute kidney injury: Vasomotor CRISTÓBAL in the setting of sepsis. Renal US negative for hydro. Renal function is improving. Continue IV fluids. Monitor renal function. Avoid nephrotoxic agents. Meds dosage based on GFR. 2. FEN: Anion gap metabolic acidosis, 2/2 Lactic acidosis, monitor. Hypernatremia, improved. Monitor lytes. 3. Sepsis. 4. Acute respiratory failure with hypoxia: Intubated on vent. 5. Seizures: Seen by Neuro. 6. DM type 2. 7. Encephalopathy: Multifactorial. Examination: General appearance: well-developed, appears stated age, intubated on vent HEENT: ATNC, DALIA Neck: trachea midline Respiratory: Clear to Auscultation Heart: regular, S1S2, no murmur Gastrointestinal: soft, normoactive bowel sounds, not tenderness, not distended Integumentary: no rash, warm and dry Neurologic: some movement with pain stimuli Musculoskeletal: no edema Subjective Date of service: 03/28/19 Principal diagnosis: Severe Sepsis; CRISTÓBAL; Ac hypoxemic resp failure; DM II; Seizures; AMS Interval history: Patient was seen and examined at the bedside. No family present at bedside. No acute events overnight. Objective - Vital Signs Vital signs: Vital Signs - 12hr 03/28/19 03/28/19 03/28/19 03:13 03:31 03:48 Temperature 99.3 F Pulse Rate 96 H 95 H Pulse Rate [ From Monitor] Respiratory 25 H Rate Blood Pressure 127/53 125/54 O2 Sat by Pulse 97 97 Oximetry 03/28/19 03/28/19 03/28/19 04:00 04:10 04:30 Temperature Pulse Rate 94 H 91 H Pulse Rate [ 96 H From Monitor] Respiratory 21 24 21 Rate Blood Pressure 129/60 126/59 O2 Sat by Pulse 94 96 95 Oximetry 03/28/19 03/28/19 03/28/19 05:00 05:30 06:00 Temperature Pulse Rate 93 H 88 90 Pulse Rate [ From Monitor] Respiratory 20 21 24 Rate Blood Pressure 125/60 129/53 134/52 O2 Sat by Pulse 97 95 97 Oximetry 03/28/19 03/28/19 03/28/19 06:30 07:00 07:30 Temperature Pulse Rate 89 86 91 H Pulse Rate [ From Monitor] Respiratory 17 21 22 Rate Blood Pressure 137/58 131/51 120/54 O2 Sat by Pulse 98 97 98 Oximetry 03/28/19 03/28/19 03/28/19 08:00 08:01 08:31 Temperature 100.2 F H Pulse Rate 87 91 H 90 Pulse Rate [ 88 From Monitor] Respiratory 20 24 28 H Rate Blood Pressure 127/59 112/58 112/58 O2 Sat by Pulse 98 98 99 Oximetry 03/28/19 03/28/19 03/28/19 09:00 09:25 09:31 Temperature Pulse Rate 88 89 94 H Pulse Rate [ From Monitor] Respiratory 26 H 25 H 22 Rate Blood Pressure 127/59 117/52 127/59 O2 Sat by Pulse 96 98 99 Oximetry 03/28/19 03/28/19 03/28/19 10:00 10:30 11:00 Temperature Pulse Rate 88 86 89 Pulse Rate [ From Monitor] Respiratory 19 21 22 Rate Blood Pressure 121/56 127/51 120/51 O2 Sat by Pulse 96 95 96 Oximetry 03/28/19 03/28/19 11:30 12:30 Temperature Pulse Rate 80 80 Pulse Rate [ From Monitor] Respiratory 17 19 Rate Blood Pressure 123/53 124/51 O2 Sat by Pulse 97 98 Oximetry - Lab 03/28/19 04:03 03/28/19 04:03 Most recent lab results ABG pH 7.421 pH Units (7.350-7.450) 03/27/19 14:50 ABG pCO2 31.7 mm Hg 03/27/19 14:50 ABG pO2 108.8 mm Hg (80.0-90.0) H 03/27/19 14:50 ABG HCO3 20.2 mmol/L (20.0-26.0) 03/27/19 14:50 ABG O2 Saturation 98.0 % (95.0-99.0) 03/27/19 14:50 Calcium 8.8 mg/dL (8.4-10.2) 03/28/19 04:03 Phosphorus 3.10 mg/dL (2.5-4.5) 03/25/19 04:23 Magnesium 1.90 mg/dL (1.7-2.3) 03/21/19 04:07 Urine Creatinine 142.9 mg/dL (0.1-20.0) H 03/19/19 01:38 Urine Sodium 14 mmol/L 03/19/19 01:38 Medications & Allergies - Medications Allergies/Adverse Reactions: Allergies No Known Allergies Allergy (Verified 01/21/16 10:17) Home Medications: Home Medications Medication Instructions Recorded Confirmed Last Taken Type Acetaminophen [Acetaminophen TAB] 2 tab PO Q4H PRN #15 tablet 02/10/19 03/19/19 Unknown Rx Aspirin 325 mg PO QDAY #30 tablet 02/10/19 03/19/19 Unknown Rx Magnesium Hydroxide [Milk of 30 ml PO Q4H PRN #15 oral.liqd 02/10/19 03/19/19 Unknown Rx Magnesia] OLANzapine [ZyPREXA] 2.5 mg PO QDAY #30 tablet 02/10/19 03/19/19 Unknown Rx Pantoprazole [Protonix TAB] 20 mg PO QDAY #30 tablet. 02/10/19 03/19/19 Unknown Rx Active Medications: Generic Name Dose Route Start Last Admin Trade Name Freq PRN Reason Stop Dose Admin Acetaminophen 650 mg 03/21/19 10:29 03/26/19 01:37 Tylenol PO 650 mg Q4H PRN Administration Pain MILD(1-3)/Fever >100.5/ROSA Lipase/Protease/Amylase 1 each 03/19/19 15:17 Pancreaze 10,500 Unit FEEDTUBE PRN PRN For Clogged Feeding Tube Clonidine HCl 0.2 mg 03/22/19 12:00 03/22/19 12:39 Catapres-Tts Patch TD 0.2 mg Raymond MARTHA Administration Dextrose 0 ml 03/20/19 02:38 D50w (25gm) Syringe IV Q30MIN PRN Hypoglycemia Protocol Famotidine 20 mg 03/23/19 10:00 03/28/19 11:24 Pepcid PO 20 mg BID MARTHA Administration Heparin Sodium (Porcine) 5,000 unit 03/18/19 22:00 03/28/19 11:25 Heparin SUB-Q 5,000 unit Q12HR MARTHA Administration Hydralazine HCl 10 mg 03/22/19 02:51 03/26/19 00:38 Apresoline IV 10 mg Q4H PRN Administration Hypertension Hydrophilic Ointment 1 applic 03/21/19 17:45 Vaseline Lip Therapy TP Q2HR PRN Dry Lips Vancomycin HCl 1 gm in 250 mls @ 167.007 mls/hr 03/27/19 12:00 03/28/19 11:24 Vancomycin/Ns 1 Gm/250 Ml IV 167.007 mls/hr Q24H MARTHA Administration Insulin Human Lispro 0 unit 03/20/19 06:00 03/28/19 12:20 Humalog SUB-Q 3 unit Q6HR MARTHA Administration Protocol Levalbuterol HCl 0.63 mg 03/26/19 01:20 Xopenex IH Q8HRT PRN Shortness Of Breath Levetiracetam 750 mg 03/24/19 10:00 03/28/19 11:25 Keppra PO 750 mg BID MARTHA Administration Multi-Ingred Cream/Lotion/Oil/Oint 1 applic 03/21/19 17:45 Artificial Tears Ophth Oint OU Q4HR PRN Dry Eye(s) Scopolamine 1 each 03/26/19 14:00 03/26/19 13:55 Transderm-Scop TD 1 each Q3D MARTHA Administration Simple Syrup 15 ml 03/19/19 15:17 Simple Syrup FEEDTUBE PRN PRN Hypoglycemia Simple Syrup 30 ml 03/19/19 15:17 Simple Syrup FEEDTUBE PRN PRN Hypoglycemia Sodium Bicarbonate 325 mg 03/19/19 15:17 Sodium Bicarbonate FEEDTUBE PRN PRN For Clogged Feeding Tube Sodium Chloride 10 ml 03/18/19 22:00 03/28/19 11:25 Sodium Chloride Flush Syringe 10 Ml IV 10 ml BID MARTHA Administration Sodium Chloride 10 ml 03/18/19 17:32 Sodium Chloride Flush Syringe 10 Ml IV PRN PRN LINE FLUSH Vancomycin HCl 125 mg 03/27/19 13:00 03/28/19 11:24 Vancomycin Po PO 125 mg Q6HR MARTHA Administration
[2019-03-28] MEDS ORDERED: MODAFINIL 100 MG TAB PO STA (16:07)
--- NOTE | 2019-03-28 16:09 | Progress Note ---
Assessment and Plan Severe Sepsis CRISTÓBAL Acidosis Acute respiratory failure with hypoxia HLD (hyperlipidemia) DM type 2 Acute onset seizure Acute encephalopathy (Toxic/Met) Hypophosphatemia (AMS is a significant rate limiting step to safe extubation currently) - add Robinul for secretion control - NPO past midnight - trial of extubation in am - AM CXR ordered - continue Provigil - increase Lantus to 8 units sq q24h - continue scopolamine patch for secretion control - continue bronchodilators with pulmonary hygiene per RT - continue daily SAT's and SBT assessment as tolerated in am - continue to wean supplemental oxygen for target O2 sat's > 90% acutely - VAP bundle addressed - continue lung protective strategies - wean per pulmonary driven protocols otherwise - continue empiric broad spectrum coverage per ID recommendations - continue set rate on MVS at 12/min - enteral nutrition at goal rate as tolerated - neurology evaluation ongoing (AED's per neuro) - accuchecks with glycemic control per SSI (While critically ill target blood glucose of 140-180 mg/dL; avoid hypoglycemia) - prn analgesia per CPOT score - Maintenance of sleep-wake cycle, avoid delirium - G.I. & VTE prophylaxis - PT/OT/ROM exercises - continue mobility protocols for pressure ulcer prophylaxis - Monitor hemodynamics closely - continue other care per attending / other technical solutions consultant's .... re-evaluate in am & prn CONDITION: CRITICAL PROGNOSIS: GUARDED CODE STATUS: FULL CODE The high probability of a clinically significant, sudden or life-threatening deterioration of the [respiratory, cardiovascular & neurologic] system(s) required my full and direct attention, intervention and personal management. The aggregate critical care time was [36] minutes without overlap. Time includes spent on; [x] Data Review and interpretation [x] Patient assessment and monitoring of vital signs [x] Documentation [x] Medication orders and management Subjective Date of service: 03/28/19 Principal diagnosis: Severe Sepsis; CRISTÓBAL; Ac hypoxemic resp failure; DM II; Seizures; AMS Interval history: Patient is seen today for: Severe Sepsis; CRISTÓBAL; Acidosis; Acute hypoxemic res piratory failure; HLD; DM type 2; Acute onset seizure; Acute encephalopathy (Toxic/Met) Seen and examined at bedside; 24hour events reviewed; nursing and respiratory care staff consulted; no adverse overnight events reported to me; remains on MVS; secretions large; more responsive but not appropriately; no emesis or overt aspiration; no high grade fevers; tolerating SBT very well otherwise Objective Vital Signs - 12hr 03/28/19 03/28/19 03/28/19 04:10 04:30 05:00 Temperature Pulse Rate 91 H 93 H Pulse Rate [ 96 H From Monitor] Respiratory 24 21 20 Rate Blood Pressure 126/59 125/60 O2 Sat by Pulse 96 95 97 Oximetry 03/28/19 03/28/19 03/28/19 05:30 06:00 06:30 Temperature Pulse Rate 88 90 89 Pulse Rate [ From Monitor] Respiratory 21 24 17 Rate Blood Pressure 129/53 134/52 137/58 O2 Sat by Pulse 95 97 98 Oximetry 03/28/19 03/28/19 03/28/19 07:00 07:30 08:00 Temperature 100.2 F H Pulse Rate 86 91 H 87 Pulse Rate [ 88 From Monitor] Respiratory 21 22 20 Rate Blood Pressure 131/51 120/54 127/59 O2 Sat by Pulse 97 98 98 Oximetry 03/28/19 03/28/19 03/28/19 08:01 08:31 09:00 Temperature Pulse Rate 91 H 90 88 Pulse Rate [ From Monitor] Respiratory 24 28 H 26 H Rate Blood Pressure 112/58 112/58 127/59 O2 Sat by Pulse 98 99 96 Oximetry 03/28/19 03/28/19 03/28/19 09:25 09:31 10:00 Temperature Pulse Rate 89 94 H 88 Pulse Rate [ From Monitor] Respiratory 25 H 22 19 Rate Blood Pressure 117/52 127/59 121/56 O2 Sat by Pulse 98 99 96 Oximetry 03/28/19 03/28/19 03/28/19 10:30 11:00 11:30 Temperature Pulse Rate 86 89 80 Pulse Rate [ From Monitor] Respiratory 21 22 17 Rate Blood Pressure 127/51 120/51 123/53 O2 Sat by Pulse 95 96 97 Oximetry 03/28/19 03/28/19 03/28/19 12:00 12:30 13:00 Temperature 99.4 F Pulse Rate 81 80 81 Pulse Rate [ From Monitor] Respiratory 18 19 14 Rate Blood Pressure 117/52 124/51 113/51 O2 Sat by Pulse 99 100 99 Oximetry 03/28/19 03/28/19 03/28/19 13:30 14:01 14:30 Temperature Pulse Rate 80 89 88 Pulse Rate [ From Monitor] Respiratory 17 16 20 Rate Blood Pressure 120/50 124/51 119/52 O2 Sat by Pulse 98 95 95 Oximetry 03/28/19 15:00 Temperature Pulse Rate 85 Pulse Rate [ From Monitor] Respiratory 20 Rate Blood Pressure 129/53 O2 Sat by Pulse 95 Oximetry Constitutional: no acute distress, other (elderly looking CM normocephalic with mildly increased respiratory effort on MVS) Eyes: non-icteric ENT: oropharynx moist, other (ETT 23 cm MARILYN) Neck: supple, no lymphadenopathy, no JVD Effort: mildly labored Ascultation: Bilateral: diminished breath sounds, rhonchi Percussion: Bilateral: not dull Cardiovascular: regular rate and rhythm Gastrointestinal: normoactive bowel sounds, soft, non-tender, non-distended Integumentary: normal Extremities: no cyanosis, no edema, pink and warm, pulses normal Neurologic: unable to assess, other (attempts top dislodge ETT) Psychiatric: other (unable to assess re: AMS) CBC and BMP: 03/28/19 04:03 03/28/19 04:03 ABG, PT/INR, D-dimer: ABG ABG pH 7.421 pH Units (7.350-7.450) 03/27/19 14:50 ABG pCO2 31.7 mm Hg 03/27/19 14:50 ABG pO2 108.8 mm Hg (80.0-90.0) H 03/27/19 14:50 ABG O2 Saturation 98.0 % (95.0-99.0) 03/27/19 14:50 PT/INR, D-dimer PT 14.4 Sec. (12.2-14.9) 03/18/19 14:17 INR 1.11 (0.87-1.13) 03/18/19 14:17 Abnormal lab findings: Abnormal Labs 03/18/19 03/18/19 03/18/19 14:17 14:17 14:17 WBC 38.1 H RBC Hgb Hct MCV 83 L MCH 27 L Plt Count 740 H Lymph % (Auto) Lymph # [place] # Seg Neutrophils % Seg Neuts % (Manual) 93.0 H Lymphocytes % (Manual) 2.5 L Monocytes % (Manual) Seg Neutrophils # Seg Neutrophils # Man 35.4 H Lymphocytes # (Manual) 1.0 L Monocytes # (Manual) 1.5 H Thrombin Time 14.7 L ABG pH ABG pO2 ABG O2 Saturation ABG Base Excess ABG Hemoglobin Sodium Potassium Chloride 94.9 L Carbon Dioxide 20 L BUN 34 H Creatinine 2.7 H Glucose 244 H POC Glucose Lactic Acid Calcium 10.6 H Phosphorus Total Creatine Kinase Troponin T 0.297 H* Total Protein Albumin Cholesterol 264 H LDL Cholesterol Direct 182 H Ur Specific [place] Urine WBC (Auto) Urine Creatinine 03/18/19 03/18/19 03/18/19 15:33 15:33 17:55 WBC RBC Hgb Hct MCV MCH Plt Count Lymph % (Auto) Lymph # [place] # Seg Neutrophils % Seg Neuts % (Manual) Lymphocytes % (Manual) Monocytes % (Manual) Seg Neutrophils # Seg Neutrophils # Man Lymphocytes # (Manual) Monocytes # (Manual) Thrombin Time ABG pH ABG pO2 ABG O2 Saturation ABG Base Excess ABG Hemoglobin Sodium Potassium Chloride Carbon Dioxide BUN Creatinine Glucose POC Glucose Lactic Acid 2.70 H* 3.00 H* Calcium Phosphorus Total Creatine Kinase 2896 H Troponin T Total Protein Albumin Cholesterol LDL Cholesterol Direct Ur Specific [place] Urine WBC (Auto) Urine Creatinine 03/18/19 03/18/19 03/18/19 20:22 Unknown Unknown WBC RBC Hgb Hct MCV MCH Plt Count Lymph % (Auto) Lymph # [place] # Seg Neutrophils % Seg Neuts % (Manual) Lymphocytes % (Manual) Monocytes % (Manual) Seg Neutrophils # Seg Neutrophils # Man Lymphocytes # (Manual) Monocytes # (Manual) Thrombin Time ABG pH ABG pO2 183.5 H ABG O2 Saturation 99.2 H ABG Base Excess ABG Hemoglobin 12.7 L Sodium Potassium Chloride Carbon Dioxide BUN Creatinine Glucose POC Glucose Lactic Acid 3.00 H* Calcium Phosphorus Total Creatine Kinase Troponin T Total Protein Albumin Cholesterol LDL Cholesterol Direct Ur Specific [place] 1.046 H Urine WBC (Auto) 23.0 H Urine Creatinine 03/19/19 03/19/19 03/19/19 01:38 02:56 02:56 WBC 25.4 H RBC Hgb 11.3 L Hct 34.1 L D MCV 83 L MCH 27 L Plt Count 496 H Lymph % (Auto) Lymph # [place] # Seg Neutrophils % Seg Neuts % (Manual) 90.0 H Lymphocytes % (Manual) 3.0 L Monocytes % (Manual) Seg Neutrophils # Seg Neutrophils # Man 22.9 H Lymphocytes # (Manual) 0.8 L Monocytes # (Manual) 1.8 H Thrombin Time ABG pH ABG pO2 ABG O2 Saturation ABG Base Excess ABG Hemoglobin Sodium Potassium Chloride Carbon Dioxide 20 L BUN 34 H Creatinine 2.5 H Glucose 208 H POC Glucose Lactic Acid Calcium Phosphorus Total Creatine Kinase Troponin T Total Protein 5.9 L Albumin 2.9 L Cholesterol LDL Cholesterol Direct Ur Specific [place] Urine WBC (Auto) Urine Creatinine 142.9 H 03/19/19 03/19/19 03/19/19 05:12 14:39 23:08 WBC RBC Hgb Hct MCV MCH Plt Count Lymph % (Auto) Lymph # [place] # Seg Neutrophils % Seg Neuts % (Manual) Lymphocytes % (Manual) Monocytes % (Manual) Seg Neutrophils # Seg Neutrophils # Man Lymphocytes # (Manual) Monocytes # (Manual) Thrombin Time ABG pH ABG pO2 201.8 H ABG O2 Saturation 99.3 H ABG Base Excess -2.8 L ABG Hemoglobin Sodium Potassium Chloride Carbon Dioxide BUN Creatinine Glucose POC Glucose 185 H Lactic Acid Calcium Phosphorus Total Creatine Kinase Troponin T 0.200 H* D Total Protein Albumin Cholesterol LDL Cholesterol Direct Ur Specific [place] Urine WBC (Auto) Urine Creatinine 03/20/19 03/20/19 03/20/19 00:12 03:44 05:19 WBC RBC Hgb Hct MCV MCH Plt Count Lymph % (Auto) Lymph # [place] # Seg Neutrophils % Seg Neuts % (Manual) Lymphocytes % (Manual) Monocytes % (Manual) Seg Neutrophils # Seg Neutrophils # Man Lymphocytes # (Manual) Monocytes # (Manual) Thrombin Time ABG pH ABG pO2 122.8 H ABG O2 Saturation ABG Base Excess -3.0 L ABG Hemoglobin 8.9 L Sodium Potassium Chloride Carbon Dioxide BUN Creatinine Glucose POC Glucose 193 H 202 H Lactic Acid Calcium Phosphorus Total Creatine Kinase Troponin T Total Protein Albumin Cholesterol LDL Cholesterol Direct Ur Specific [place] Urine WBC (Auto) Urine Creatinine 03/20/19 03/20/19 03/20/19 05:26 05:26 05:26 WBC 19.5 H RBC Hgb 10.8 L Hct 33.0 L MCV 82 L MCH 27 L Plt Count Lymph % (Auto) 5.4 L Lymph # 1.1 L [place] # 1.4 H Seg Neutrophils % 86.8 H Seg Neuts % (Manual) Lymphocytes % (Manual) Monocytes % (Manual) Seg Neutrophils # 16.9 H Seg Neutrophils # Man Lymphocytes # (Manual) Monocytes # (Manual) Thrombin Time ABG pH ABG pO2 ABG O2 Saturation ABG Base Excess ABG Hemoglobin Sodium Potassium Chloride 110.5 H Carbon Dioxide 17 L BUN 41 H Creatinine 2.6 H Glucose 199 H POC Glucose Lactic Acid Calcium Phosphorus Total Creatine Kinase 396 H Troponin T 0.191 H* Total Protein Albumin Cholesterol LDL Cholesterol Direct Ur Specific [place] Urine WBC (Auto) Urine Creatinine 03/20/19 03/20/19 03/20/19 11:33 15:23 18:28 WBC RBC Hgb Hct MCV MCH Plt Count Lymph % (Auto) Lymph # [place] # Seg Neutrophils % Seg Neuts % (Manual) Lymphocytes % (Manual) Monocytes % (Manual) Seg Neutrophils # Seg Neutrophils # Man Lymphocytes # (Manual) Monocytes # (Manual) Thrombin Time ABG pH ABG pO2 ABG O2 Saturation ABG Base Excess ABG Hemoglobin Sodium Potassium Chloride Carbon Dioxide BUN Creatinine Glucose POC Glucose 196 H 190 H Lactic Acid Calcium Phosphorus Total Creatine Kinase Troponin T 0.214 H* Total Protein Albumin Cholesterol LDL Cholesterol Direct Ur Specific [place] Urine WBC (Auto) Urine Creatinine 03/20/19 03/21/19 03/21/19 23:14 03:29 04:07 WBC RBC Hgb Hct MCV MCH Plt Count Lymph % (Auto) Lymph # [place] # Seg Neutrophils % Seg Neuts % (Manual) Lymphocytes % (Manual) Monocytes % (Manual) Seg Neutrophils # Seg Neutrophils # Man Lymphocytes # (Manual) Monocytes # (Manual) Thrombin Time ABG pH 7.483 H ABG pO2 97.5 H ABG O2 Saturation ABG Base Excess ABG Hemoglobin 8.5 L Sodium 146 H Potassium 3.1 L D Chloride 109.8 H Carbon Dioxide BUN 35 H Creatinine 1.9 H Glucose 200 H POC Glucose 190 H Lactic Acid Calcium Phosphorus 1.80 L Total Creatine Kinase Troponin T Total Protein Albumin Cholesterol LDL Cholesterol Direct Ur Specific [place] Urine WBC (Auto) Urine Creatinine 03/21/19 03/21/19 03/21/19 05:22 11:52 18:06 WBC RBC Hgb Hct MCV MCH Plt Count Lymph % (Auto) Lymph # [place] # Seg Neutrophils % Seg Neuts % (Manual) Lymphocytes % (Manual) Monocytes % (Manual) Seg Neutrophils # Seg Neutrophils # Man Lymphocytes # (Manual) Monocytes # (Manual) Thrombin Time ABG pH ABG pO2 ABG O2 Saturation ABG Base Excess ABG Hemoglobin Sodium Potassium Chloride Carbon Dioxide BUN Creatinine Glucose POC Glucose 189 H 236 H 164 H Lactic Acid Calcium Phosphorus Total Creatine Kinase Troponin T Total Protein Albumin Cholesterol LDL Cholesterol Direct Ur Specific [place] Urine WBC (Auto) Urine Creatinine 03/21/19 03/22/19 03/22/19 23:36 04:47 04:47 WBC RBC 3.62 L Hgb 10.1 L Hct 29.9 L MCV 83 L MCH Plt Count Lymph % (Auto) Lymph # [place] # Seg Neutrophils % Seg Neuts % (Manual) 83.0 H Lymphocytes % (Manual) 8.0 L Monocytes % (Manual) 8.0 H Seg Neutrophils # Seg Neutrophils # Man 8.8 H Lymphocytes # (Manual) 0.8 L Monocytes # (Manual) Thrombin Time ABG pH ABG pO2 ABG O2 Saturation ABG Base Excess ABG Hemoglobin Sodium Potassium Chloride 107.8 H Carbon Dioxide 19 L BUN 28 H Creatinine 1.6 H Glucose 198 H POC Glucose 211 H Lactic Acid Calcium Phosphorus 2.40 L D Total Creatine Kinase Troponin T Total Protein Albumin Cholesterol LDL Cholesterol Direct Ur Specific [place] Urine WBC (Auto) Urine Creatinine 03/22/19 03/22/19 03/22/19 05:20 05:29 10:10 WBC RBC Hgb Hct MCV MCH Plt Count Lymph % (Auto) Lymph # [place] # Seg Neutrophils % Seg Neuts % (Manual) Lymphocytes % (Manual) Monocytes % (Manual) Seg Neutrophils # Seg Neutrophils # Man Lymphocytes # (Manual) Monocytes # (Manual) Thrombin Time ABG pH 7.481 H 7.483 H ABG pO2 74.6 L 79.4 L ABG O2 Saturation ABG Base Excess ABG Hemoglobin 9.7 L 9.2 L Sodium Potassium Chloride Carbon Dioxide BUN Creatinine Glucose POC Glucose 202 H Lactic Acid Calcium Phosphorus Total Creatine Kinase Troponin T Total Protein Albumin Cholesterol LDL Cholesterol Direct Ur Specific [place] Urine WBC (Auto) Urine Creatinine 03/22/19 03/22/19 03/22/19 12:29 17:34 23:16 WBC RBC Hgb Hct MCV MCH Plt Count Lymph % (Auto) Lymph # [place] # Seg Neutrophils % Seg Neuts % (Manual) Lymphocytes % (Manual) Monocytes % (Manual) Seg Neutrophils # Seg Neutrophils # Man Lymphocytes # (Manual) Monocytes # (Manual) Thrombin Time ABG pH ABG pO2 ABG O2 Saturation ABG Base Excess ABG Hemoglobin Sodium Potassium Chloride Carbon Dioxide BUN Creatinine Glucose POC Glucose 234 H 225 H 205 H Lactic Acid Calcium Phosphorus Total Creatine Kinase Troponin T Total Protein Albumin Cholesterol LDL Cholesterol Direct Ur Specific [place] Urine WBC (Auto) Urine Creatinine 03/23/19 03/23/19 03/23/19 03:27 03:50 04:17 WBC RBC Hgb Hct MCV MCH Plt Count Lymph % (Auto) Lymph # [place] # Seg Neutrophils % Seg Neuts % (Manual) Lymphocytes % (Manual) Monocytes % (Manual) Seg Neutrophils # Seg Neutrophils # Man Lymphocytes # (Manual) Monocytes # (Manual) Thrombin Time ABG pH 7.486 H ABG pO2 75.2 L ABG O2 Saturation ABG Base Excess ABG Hemoglobin 9.6 L Sodium Potassium Chloride Carbon Dioxide BUN Creatinine Glucose POC Glucose 113 H 173 H Lactic Acid Calcium Phosphorus Total Creatine Kinase Troponin T Total Protein Albumin Cholesterol LDL Cholesterol Direct Ur Specific [place] Urine WBC (Auto) Urine Creatinine 03/23/19 03/23/19 03/23/19 05:12 12:32 18:20 WBC RBC Hgb Hct MCV MCH Plt Count Lymph % (Auto) Lymph # [place] # Seg Neutrophils % Seg Neuts % (Manual) Lymphocytes % (Manual) Monocytes % (Manual) Seg Neutrophils # Seg Neutrophils # Man Lymphocytes # (Manual) Monocytes # (Manual) Thrombin Time ABG pH ABG pO2 ABG O2 Saturation ABG Base Excess ABG Hemoglobin Sodium Potassium Chloride 107.3 H Carbon Dioxide 21 L BUN 27 H Creatinine 1.6 H Glucose 166 H POC Glucose 212 H 190 H Lactic Acid Calcium Phosphorus Total Creatine Kinase Troponin T Total Protein Albumin Cholesterol LDL Cholesterol Direct Ur Specific [place] Urine WBC (Auto) Urine Creatinine 03/23/19 03/24/19 03/24/19 23:40 05:15 05:24 WBC RBC Hgb Hct MCV MCH Plt Count Lymph % (Auto) Lymph # [place] # Seg Neutrophils % Seg Neuts % (Manual) Lymphocytes % (Manual) Monocytes % (Manual) Seg Neutrophils # Seg Neutrophils # Man Lymphocytes # (Manual) Monocytes # (Manual) Thrombin Time ABG pH ABG pO2 ABG O2 Saturation ABG Base Excess ABG Hemoglobin Sodium Potassium Chloride Carbon Dioxide 21 L BUN 28 H Creatinine Glucose 139 H POC Glucose 172 H 128 H Lactic Acid Calcium Phosphorus Total Creatine Kinase Troponin T Total Protein Albumin Cholesterol LDL Cholesterol Direct Ur Specific [place] Urine WBC (Auto) Urine Creatinine 03/24/19 03/24/19 03/24/19 12:21 17:16 23:27 WBC RBC Hgb Hct MCV MCH Plt Count Lymph % (Auto) Lymph # [place] # Seg Neutrophils % Seg Neuts % (Manual) Lymphocytes % (Manual) Monocytes % (Manual) Seg Neutrophils # Seg Neutrophils # Man Lymphocytes # (Manual) Monocytes # (Manual) Thrombin Time ABG pH ABG pO2 ABG O2 Saturation ABG Base Excess ABG Hemoglobin Sodium Potassium Chloride Carbon Dioxide BUN Creatinine Glucose POC Glucose 213 H 200 H 189 H Lactic Acid Calcium Phosphorus Total Creatine Kinase Troponin T Total Protein Albumin Cholesterol LDL Cholesterol Direct Ur Specific [place] Urine WBC (Auto) Urine Creatinine 03/25/19 03/25/19 03/25/19 01:57 04:23 05:24 WBC RBC Hgb Hct MCV MCH Plt Count Lymph % (Auto) Lymph # [place] # Seg Neutrophils % Seg Neuts % (Manual) Lymphocytes % (Manual) Monocytes % (Manual) Seg Neutrophils # Seg Neutrophils # Man Lymphocytes # (Manual) Monocytes # (Manual) Thrombin Time ABG pH 7.470 H ABG pO2 73.5 L ABG O2 Saturation ABG Base Excess ABG Hemoglobin 7.5 L Sodium 134 L Potassium Chloride Carbon Dioxide 21 L BUN 28 H Creatinine Glucose 179 H POC Glucose 198 H Lactic Acid Calcium 8.3 L Phosphorus Total Creatine Kinase Troponin T Total Protein Albumin Cholesterol LDL Cholesterol Direct Ur Specific [place] Urine WBC (Auto) Urine Creatinine 03/25/19 03/25/19 03/25/19 12:23 17:31 23:59 WBC RBC Hgb Hct MCV MCH Plt Count Lymph % (Auto) Lymph # [place] # Seg Neutrophils % Seg Neuts % (Manual) Lymphocytes % (Manual) Monocytes % (Manual) Seg Neutrophils # Seg Neutrophils # Man Lymphocytes # (Manual) Monocytes # (Manual) Thrombin Time ABG pH ABG pO2 ABG O2 Saturation ABG Base Excess ABG Hemoglobin Sodium Potassium Chloride Carbon Dioxide BUN Creatinine Glucose POC Glucose 184 H 181 H 198 H Lactic Acid Calcium Phosphorus Total Creatine Kinase Troponin T Total Protein Albumin Cholesterol LDL Cholesterol Direct Ur Specific [place] Urine WBC (Auto) Urine Creatinine 03/26/19 03/26/19 03/26/19 04:49 04:49 05:44 WBC 12.4 H RBC 3.47 L Hgb 9.6 L Hct 28.6 L MCV 82 L MCH Plt Count Lymph % (Auto) 6.3 L Lymph # 0.8 L [place] # Seg Neutrophils % 88.2 H Seg Neuts % (Manual) Lymphocytes % (Manual) Monocytes % (Manual) Seg Neutrophils # 10.9 H Seg Neutrophils # Man Lymphocytes # (Manual) Monocytes # (Manual) Thrombin Time ABG pH ABG pO2 ABG O2 Saturation ABG Base Excess ABG Hemoglobin Sodium 132 L Potassium Chloride 96.8 L Carbon Dioxide 21 L BUN 29 H Creatinine Glucose 225 H POC Glucose 219 H Lactic Acid Calcium Phosphorus Total Creatine Kinase Troponin T Total Protein Albumin Cholesterol LDL Cholesterol Direct Ur Specific [place] Urine WBC (Auto) Urine Creatinine 03/26/19 03/26/19 03/26/19 12:40 18:27 23:25 WBC RBC Hgb Hct MCV MCH Plt Count Lymph % (Auto) Lymph # [place] # Seg Neutrophils % Seg Neuts % (Manual) Lymphocytes % (Manual) Monocytes % (Manual) Seg Neutrophils # Seg Neutrophils # Man Lymphocytes # (Manual) Monocytes # (Manual) Thrombin Time ABG pH ABG pO2 ABG O2 Saturation ABG Base Excess ABG Hemoglobin Sodium Potassium Chloride Carbon Dioxide BUN Creatinine Glucose POC Glucose 236 H 216 H 227 H Lactic Acid Calcium Phosphorus Total Creatine Kinase Troponin T Total Protein Albumin Cholesterol LDL Cholesterol Direct Ur Specific [place] Urine WBC (Auto) Urine Creatinine 03/27/19 03/27/19 03/27/19 04:42 05:27 12:04 WBC RBC Hgb Hct MCV MCH Plt Count Lymph % (Auto) Lymph # [place] # Seg Neutrophils % Seg Neuts % (Manual) Lymphocytes % (Manual) Monocytes % (Manual) Seg Neutrophils # Seg Neutrophils # Man Lymphocytes # (Manual) Monocytes # (Manual) Thrombin Time ABG pH ABG pO2 ABG O2 Saturation ABG Base Excess ABG Hemoglobin Sodium Potassium Chloride Carbon Dioxide BUN 38 H Creatinine 1.9 H Glucose 182 H POC Glucose 188 H 226 H Lactic Acid Calcium Phosphorus Total Creatine Kinase Troponin T Total Protein Albumin Cholesterol LDL Cholesterol Direct Ur Specific [place] Urine WBC (Auto) Urine Creatinine 03/27/19 03/27/19 03/27/19 14:50 19:07 23:57 WBC RBC Hgb Hct MCV MCH Plt Count Lymph % (Auto) Lymph # [place] # Seg Neutrophils % Seg Neuts % (Manual) Lymphocytes % (Manual) Monocytes % (Manual) Seg Neutrophils # Seg Neutrophils # Man Lymphocytes # (Manual) Monocytes # (Manual) Thrombin Time ABG pH ABG pO2 108.8 H ABG O2 Saturation ABG Base Excess -3.1 L ABG Hemoglobin Sodium Potassium Chloride Carbon Dioxide BUN Creatinine Glucose POC Glucose 196 H 208 H Lactic Acid Calcium Phosphorus Total Creatine Kinase Troponin T Total Protein Albumin Cholesterol LDL Cholesterol Direct Ur Specific [place] Urine WBC (Auto) Urine Creatinine 03/28/19 03/28/19 03/28/19 04:03 04:03 05:37 WBC 15.3 H RBC 2.93 L Hgb 8.1 L Hct 24.1 L MCV 82 L MCH Plt Count Lymph % (Auto) Lymph # [place] # Seg Neutrophils % Seg Neuts % (Manual) 85.0 H Lymphocytes % (Manual) 6.0 L Monocytes % (Manual) Seg Neutrophils # Seg Neutrophils # Man 13.0 H Lymphocytes # (Manual) 0.9 L Monocytes # (Manual) Thrombin Time ABG pH ABG pO2 ABG O2 Saturation ABG Base Excess ABG Hemoglobin Sodium 136 L Potassium Chloride Carbon Dioxide 21 L BUN 36 H Creatinine 1.8 H Glucose 163 H POC Glucose 157 H Lactic Acid Calcium Phosphorus Total Creatine Kinase Troponin T Total Protein Albumin Cholesterol LDL Cholesterol Direct Ur Specific [place] Urine WBC (Auto) Urine Creatinine 03/28/19 12:22 WBC RBC Hgb Hct MCV MCH Plt Count Lymph % (Auto) Lymph # [place] # Seg Neutrophils % Seg Neuts % (Manual) Lymphocytes % (Manual) Monocytes % (Manual) Seg Neutrophils # Seg Neutrophils # Man Lymphocytes # (Manual) Monocytes # (Manual) Thrombin Time ABG pH ABG pO2 ABG O2 Saturation ABG Base Excess ABG Hemoglobin Sodium Potassium Chloride Carbon Dioxide BUN Creatinine Glucose POC Glucose 207 H Lactic Acid Calcium Phosphorus Total Creatine Kinase Troponin T Total Protein Albumin Cholesterol LDL Cholesterol Direct Ur Specific [place] Urine WBC (Auto) Urine Creatinine Chest x-ray: other (none today) Allied health notes reviewed: nursing
[2019-03-28] MEDS ORDERED: MODAFINIL 100 MG TAB PO ONE (19:00)
[2019-03-28] MEDS: GLYCOPYRROLATE 1 MG TAB PO SCH (22:10)
[2019-03-29] MEDS: VANCOMYCIN 250 MG/10 ML ORAL LIQD PO SCH ×5 (00:16→18:38)
[2019-03-29] MEDS: INSULIN LISPRO 100 UNIT/ML SUB-Q SCH ×4 (00:39→18:37)
[2019-03-29 06:50] LABS: Hematocrit 23.5 % (35.5-45.6); Hemoglobin 7.8 gm/dl (11.8-15.2); Mean Corpuscular HGB Conc 33 % (32-34); Mean Corpuscular Volume 82 fl (84-94); Platelet Count 398 K/mm3 (140-440); Red Blood Count 2.87 M/mm3 (3.65-5.03); Red Cell Distribution Width 14.8 % (13.2-15.2)
[2019-03-29 07:07] LABS: Calcium 9.1 mg/dL (8.4-10.2)
[2019-03-29] MEDS: GLYCOPYRROLATE 1 MG TAB PO SCH ×2 (07:16→14:50)
--- NOTE | 2019-03-29 08:17 | Progress Note ---
Assessment and Plan Assessment and plan: / Acute respiratory failure with hypoxia Patient intubated and placed on ventilatory support, daily SBT, sedation holiday, /new onset diarrhea since 03/25/19 - restarted abx -vanco po, C.def ordered /New GPC bacteremia: 02/28 bottles 03/26/19, follow up final results. Continue IV Vancomycin for now. /Acute encephalopathy -improving likely from SIRS vs CRISTÓBAL Vs underlying seizure monitor clinically. MRI brain w/o any acute change, CSF study negative cont to treat underlying cause, neurology following / SIRS, likely from new onset seizure Sepsis with possible meningitis - ruled out cannot r/o meningitis as presented with seizure, encephalopathy and elevated white count Admited to ICU with Sepsis protocol: IV fluid resuscitation therapy, serial CBC, BMP, lactic acid level, IV abx, ordered Cx negative blood cx report, URINE for MSSA - could be a skin contaminant ordered for LP - placed on Iv coverage for viral and bacterial meningitis, ID consulted s/p LP 03/20/19 - study result not convincing for bacterial meningitis, also negative for viral PCR cont to treat for seizure, wbc trended down, d/aria abx for meningitis / CRISTÓBAL (acute kidney injury): likely vasomotor nephropathy - Cr slightly increased today cont IV fluid resuscitation therapy, monitor urine output every shift, strict I's/O, Nephrology following /hypokalemia, repleted, follow BMP / metabolic Acidosis - due to sepsis vs CRISTÓBAL - resolved IV fluid resuscitation therapy, monitor urine output every shift, s/p IV bicarbonate therapy. / HLD (hyperlipidemia) TF diet for now, statin therapy as clinically indicated. / DM type 2 - SSI as needed /Acute onset seizure, started on keppra - EEG showed + for seizure, neurology recomsulted /DVT prophylaxis SCD to bilateral lower extremities while in bed, prophylactic heparin. The high probability of a clinically significant, sudden or life threatening deterioration of the [cardiac, pulmonary, renal, neurologic] system(s) required my full and direct attention, intervention and personal management. The aggregate critical care time was [38] minutes. This time is in addition to time spent performing reported procedures but includes the following: [x] Data Review and interpretation [x] Patient assessment and monitoring of vital signs [x] Documentation [x] Medication orders and management History Interval history: Still intubated Fever on 03/28 Hospitalist Physical - Physical exam Narrative exam: General appearance: Present: other (intubated), NAD, opens eyes - EENT Eyes: no scleral icterus, no conjunctival injection ENT: clear oral mucosa Ears: bilateral: normal - Neck Neck: no rigidity, no enlarged thyroid - Respiratory Respiratory effort: other (on mechanical ventilation) Respiratory: bilateral: CTA - Cardiovascular Rhythm: regular Heart Sounds: Present: S1 & S2. Absent: gallop, rub Extremities: pulses intact, No edema, normal color - Gastrointestinal General gastrointestinal: Present: soft, non-tender, non-distended, normal bowel sounds - Integumentary Integumentary: clear, warm, dry - Musculoskeletal Musculoskeletal: no joint swelling - Neurologic Neurologic: moves extremities - does not follow commend but opens his eyes, off sedation - Psychiatric Psychiatric: other (intubated) - Constitutional Vitals: Temp Pulse Resp BP Pulse Ox 99.4 F 83 21 126/63 95 03/29/19 03:35 03/29/19 06:00 03/29/19 06:00 03/29/19 06:00 03/29/19 06:00 General appearance: Present: other (intubated and sedated) Results - Labs CBC & Chem 7: 03/30/19 05:54 03/30/19 05:54 Labs: Laboratory Last Values WBC 11.2 K/mm3 (4.5-11.0) H 03/29/19 06:17 RBC 2.87 M/mm3 (3.65-5.03) L 03/29/19 06:17 Hgb 7.8 gm/dl (11.8-15.2) L 03/29/19 06:17 Hct 23.5 % (35.5-45.6) L 03/29/19 06:17 MCV 82 fl (84-94) L 03/29/19 06:17 MCH 27 pg (28-32) L 03/29/19 06:17 MCHC 33 % (32-34) 03/29/19 06:17 RDW 14.8 % (13.2-15.2) 03/29/19 06:17 Plt Count 398 K/mm3 (140-440) 03/29/19 06:17 Lymph % (Auto) 6.3 % (13.4-35.0) L 03/26/19 04:49 [place] % (Auto) 4.5 % (0.0-7.3) 03/26/19 04:49 Eos % (Auto) 0.4 % (0.0-4.3) 03/26/19 04:49 Baso % (Auto) 0.6 % (0.0-1.8) 03/26/19 04:49 Lymph # 0.8 K/mm3 (1.2-5.4) L 03/26/19 04:49 [place] # 0.6 K/mm3 (0.0-0.8) 03/26/19 04:49 Eos # 0.1 K/mm3 (0.0-0.4) 03/26/19 04:49 Baso # 0.1 K/mm3 (0.0-0.1) 03/26/19 04:49 Add Manual Diff Complete 03/28/19 04:03 Total Counted 100 03/28/19 04:03 Seg Neutrophils % 88.2 % (40.0-70.0) H 03/26/19 04:49 Seg Neuts % (Manual) 85.0 % (40.0-70.0) H 03/28/19 04:03 Band Neutrophils % 3.0 % 03/28/19 04:03 Lymphocytes % (Manual) 6.0 % (13.4-35.0) L 03/28/19 04:03 Reactive Lymphs % (Man) 0 % 03/28/19 04:03 Monocytes % (Manual) 5.0 % (0.0-7.3) 03/28/19 04:03 Eosinophils % (Manual) 1.0 % (0.0-4.3) 03/28/19 04:03 Basophils % (Manual) 0 % (0.0-1.8) 03/28/19 04:03 Metamyelocytes % 0 % 03/28/19 04:03 Myelocytes % 0 % 03/28/19 04:03 Promyelocytes % 0 % 03/28/19 04:03 Blast Cells % 0 % 03/28/19 04:03 Nucleated RBC % Not Reportable 03/28/19 04:03 Seg Neutrophils # 10.9 K/mm3 (1.8-7.7) H 03/26/19 04:49 Seg Neutrophils # Man 13.0 K/mm3 (1.8-7.7) H 03/28/19 04:03 Band Neutrophils # 0.5 K/mm3 03/28/19 04:03 Lymphocytes # (Manual) 0.9 K/mm3 (1.2-5.4) L 03/28/19 04:03 Abs React Lymphs (Man) 0.0 K/mm3 03/28/19 04:03 Monocytes # (Manual) 0.8 K/mm3 (0.0-0.8) 03/28/19 04:03 Eosinophils # (Manual) 0.2 K/mm3 (0.0-0.4) 03/28/19 04:03 Basophils # (Manual) 0.0 K/mm3 (0.0-0.1) 03/28/19 04:03 Metamyelocytes # 0.0 K/mm3 03/28/19 04:03 Myelocytes # 0.0 K/mm3 03/28/19 04:03 Promyelocytes # 0.0 K/mm3 03/28/19 04:03 Blast Cells # 0.0 K/mm3 03/28/19 04:03 Pathologist Review 03/18/19 14:17 WBC Morphology Not Reportable 03/28/19 04:03 Hypersegmented Neuts Not Reportable 03/28/19 04:03 Hyposegmented Neuts Not Reportable 03/28/19 04:03 Hypogranular Neuts Not Reportable 03/28/19 04:03 Smudge Cells Not Reportable 03/28/19 04:03 Toxic Granulation Not Reportable 03/28/19 04:03 Toxic Vacuolation Not Reportable 03/28/19 04:03 Dohle Bodies Not Reportable 03/28/19 04:03 Pelger-Huet Anomaly Not Reportable 03/28/19 04:03 Chelsi Rods Not Reportable 03/28/19 04:03 Platelet Estimate Consistent w auto 03/28/19 04:03 Clumped Platelets Not Reportable 03/28/19 04:03 Plt Clumps, EDTA Not Reportable 03/28/19 04:03 Large Platelets Not Reportable 03/28/19 04:03 Giant Platelets Not Reportable 03/28/19 04:03 Platelet Satelliting Not Reportable 03/28/19 04:03 Plt Morphology Comment Not Reportable 03/28/19 04:03 RBC Morphology Not Reportable 03/28/19 04:03 Dimorphic RBCs Not Reportable 03/28/19 04:03 Polychromasia Not Reportable 03/28/19 04:03 Hypochromasia Not Reportable 03/28/19 04:03 Poikilocytosis Not Reportable 03/28/19 04:03 Anisocytosis Not Reportable 03/28/19 04:03 Microcytosis Not Reportable 03/28/19 04:03 Macrocytosis Not Reportable 03/28/19 04:03 Spherocytes Not Reportable 03/28/19 04:03 Pappenheimer Bodies Not Reportable 03/28/19 04:03 Sickle Cells Not Reportable 03/28/19 04:03 Target Cells Not Reportable 03/28/19 04:03 Tear Drop Cells Not Reportable 03/28/19 04:03 Ovalocytes Not Reportable 03/28/19 04:03 Helmet Cells Not Reportable 03/28/19 04:03 [place] Bodies Not Reportable 03/28/19 04:03 Meno Rings Not Reportable 03/28/19 04:03 [place] Cells Not Reportable 03/28/19 04:03 Bite Cells Not Reportable 03/28/19 04:03 Crenated Cell Not Reportable 03/28/19 04:03 Elliptocytes Rare 03/28/19 04:03 Acanthocytes (Spur) Not Reportable 03/28/19 04:03 Rouleaux Not Reportable 03/28/19 04:03 Hemoglobin C Crystals Not Reportable 03/28/19 04:03 Schistocytes Not Reportable 03/28/19 04:03 Malaria parasites Not Reportable 03/28/19 04:03 Sharif Bodies Not Reportable 03/28/19 04:03 Hem Pathologist Commnt No 03/28/19 04:03 PT 14.4 Sec. (12.2-14.9) 03/18/19 14:17 INR 1.11 (0.87-1.13) 03/18/19 14:17 APTT 33.5 Sec. (24.2-36.6) 03/18/19 14:17 Thrombin Time 14.7 Sec. (15.1-19.6) L 03/18/19 14:17 ABG pH 7.421 pH Units (7.350-7.450) 03/27/19 14:50 ABG pCO2 31.7 mm Hg 03/27/19 14:50 ABG pO2 108.8 mm Hg (80.0-90.0) H 03/27/19 14:50 ABG HCO3 20.2 mmol/L (20.0-26.0) 03/27/19 14:50 ABG O2 Saturation 98.0 % (95.0-99.0) 03/27/19 14:50 ABG O2 Content 22.0 (0.0-44) 03/27/19 14:50 ABG Base Excess -3.1 mmol/L (-2.0-3.0) L 03/27/19 14:50 ABG Hemoglobin 16.2 gm/dl (14.0-18.0) 03/27/19 14:50 ABG Carboxyhemoglobin 1.4 % (0.0-5.0) 03/27/19 14:50 ABG Methemoglobin 0.6 % (0.0-1.5) 03/27/19 14:50 Oxyhemoglobin 96.1 % (95.0-99.0) 03/27/19 14:50 FiO2 25 % 03/27/19 14:50 Sodium 137 mmol/L (137-145) 03/29/19 06:17 Potassium 3.6 mmol/L (3.6-5.0) 03/29/19 06:17 Chloride 102.3 mmol/L (98-107) 03/29/19 06:17 Carbon Dioxide 23 mmol/L (22-30) 03/29/19 06:17 Anion Gap 15 mmol/L 03/29/19 06:17 BUN 30 mg/dL (9-20) H 03/29/19 06:17 Creatinine 1.5 mg/dL (0.8-1.5) 03/29/19 06:17 Estimated GFR 46 ml/min 03/29/19 06:17 BUN/Creatinine Ratio 20 % 03/29/19 06:17 Glucose 149 mg/dL (75-100) H 03/29/19 06:17 POC Glucose 110 (70-105) H 03/29/19 05:49 Lactic Acid 1.70 mmol/L (0.7-2.0) 03/18/19 23:41 Calcium 9.1 mg/dL (8.4-10.2) 03/29/19 06:17 Phosphorus 3.10 mg/dL (2.5-4.5) 03/25/19 04:23 Magnesium 1.90 mg/dL (1.7-2.3) 03/21/19 04:07 Total Bilirubin 0.30 mg/dL (0.1-1.2) 03/19/19 02:56 AST 30 units/L (5-40) 03/19/19 02:56 ALT 17 units/L (7-56) 03/19/19 02:56 Alkaline Phosphatase 100 units/L (35-129) 03/19/19 02:56 Total Creatine Kinase 396 units/L (55-170) H 03/20/19 05:26 Troponin T 0.214 ng/mL (0.00-0.029) H* 03/20/19 15:23 Total Protein 5.9 g/dL (6.3-8.2) L 03/19/19 02:56 Albumin 2.9 g/dL (3.9-5) L 03/19/19 02:56 Albumin/Globulin Ratio 1.0 % 03/19/19 02:56 Triglycerides 127 mg/dL (2-149) 03/18/19 14:17 Cholesterol 264 mg/dL (50-199) H 03/18/19 14:17 LDL Cholesterol Direct 182 mg/dL (50-130) H 03/18/19 14:17 HDL Cholesterol 58 mg/dL (40-59) 03/18/19 14:17 Cholesterol/HDL Ratio 4.55 % 03/18/19 14:17 Urine Color Yellow (Yellow) 03/18/19 Unknown Urine Turbidity Cloudy (Clear) 03/18/19 Unknown Urine pH 5.0 (5.0-7.0) 03/18/19 Unknown Ur Specific [place] 1.046 (1.003-1.030) H 03/18/19 Unknown Urine Protein 30 mg/dl mg/dL (Negative) 03/18/19 Unknown Urine Glucose (UA) 50 mg/dL (Negative) 03/18/19 Unknown Urine Ketones Neg mg/dL (Negative) 03/18/19 Unknown Urine Blood Lg (Negative) 03/18/19 Unknown Urine Nitrite Neg (Negative) 03/18/19 Unknown Urine Bilirubin Neg (Negative) 03/18/19 Unknown Urine Urobilinogen < 2.0 mg/dL (<2.0) 03/18/19 Unknown Ur Leukocyte Esterase Mod (Negative) 03/18/19 Unknown Urine WBC (Auto) 23.0 /HPF (0.0-6.0) H 03/18/19 Unknown Urine RBC (Auto) 6.0 /HPF (0.0-6.0) 03/18/19 Unknown U Epithel Cells (Auto) < 1.0 /HPF (0-13.0) 03/18/19 Unknown Urine Mucus Few /HPF 03/18/19 Unknown Urine Creatinine 142.9 mg/dL (0.1-20.0) H 03/19/19 01:38 Urine Sodium 14 mmol/L 03/19/19 01:38 CSF Appearance Clear 03/19/19 14:10 CSF Color Colorless 03/19/19 14:10 CSF WBC 97 /mm3 (1-10) 03/19/19 14:10 CSF RBC 720 /mm3 (0-0) 03/19/19 14:10 CSF Seg Neutrophils 94.0 % (0-6) 03/19/19 14:10 CSF Lymphocytes % 0 % (40-80) 03/19/19 14:10 CSF Reactive Lymphs 0 % 03/19/19 14:10 CSF Monocytes % 6.0 % (15-45) 03/19/19 14:10 CSF Eosinophils % 0 % 03/19/19 14:10 CSF Basophils 0 % 03/19/19 14:10 CSF Pathologist Review C 03/19/19 14:10 CSF Glucose 108 mg/dL 03/19/19 14:10 CSF Total Protein 66 mg/dL 03/19/19 14:10 CSF VDRL Nonreactive (Nonreactive) 03/19/19 14:10 Random Vancomycin 4.1 ug/mL (0-40.0) 03/22/19 04:47 C. difficile Tox (PCR) Positive (Negative) 03/26/19 21:20 Enterovirus (PCR) Cmmt See scanned results 03/19/19 14:10 HSV I DNA PCR See scanned results 03/19/19 14:10 HSV II DNA PCR See scanned results 03/19/19 14:10 VZV (Qnt-PCR) See scanned results 03/19/19 14:10 Active Medications - Current Medications Current Medications: Generic Name Dose Route Start Last Admin Trade Name Freq PRN Reason Stop Dose Admin Acetaminophen 650 mg 03/21/19 10:29 03/26/19 01:37 Tylenol PO 650 mg Q4H PRN Administration Pain MILD(1-3)/Fever >100.5/ROSA Lipase/Protease/Amylase 1 each 03/19/19 15:17 Pancreeliana Huggins 10,500 Unit FEEDTUBE PRN PRN For Clogged Feeding Tube Clonidine HCl 0.2 mg 03/22/19 12:00 03/22/19 12:39 Catapres-Tts Patch TD 0.2 mg Raymond MARTHA Administration Dextrose 0 ml 03/20/19 02:38 D50w (25gm) Syringe IV Q30MIN PRN Hypoglycemia Protocol Famotidine 20 mg 03/23/19 10:00 03/28/19 22:10 Pepcid PO 20 mg BID MARTHA Administration Glycopyrrolate 2 mg 03/28/19 20:00 03/29/19 07:16 Robinul PO 2 mg TID MARTHA Administration Heparin Sodium (Porcine) 5,000 unit 03/18/19 22:00 03/28/19 22:11 Heparin SUB-Q 5,000 unit Q12HR MARTHA Administration Hydralazine HCl 10 mg 03/22/19 02:51 03/26/19 00:38 Apresoline IV 10 mg Q4H PRN Administration Hypertension Hydrophilic Ointment 1 applic 03/21/19 17:45 Vaseline Lip Therapy TP Q2HR PRN Dry Lips Vancomycin HCl 1 gm in 250 mls @ 167.007 mls/hr 03/27/19 12:00 03/28/19 11:24 Vancomycin/Ns 1 Gm/250 Ml IV 167.007 mls/hr Q24H MARTHA Administration Insulin Human Lispro 0 unit 03/20/19 06:00 03/29/19 00:39 Humalog SUB-Q 2 unit Q6HR MARTHA Administration Protocol Levalbuterol HCl 0.63 mg 03/26/19 01:20 Xopenex IH Q8HRT PRN Shortness Of Breath Levetiracetam 750 mg 03/24/19 10:00 03/28/19 22:09 Keppra PO 750 mg BID MARTHA Administration Multi-Ingred Cream/Lotion/Oil/Oint 1 applic 03/21/19 17:45 Artificial Tears Ophth Oint OU Q4HR PRN Dry Eye(s) Scopolamine 1 each 03/26/19 14:00 03/26/19 13:55 Transderm-Scop TD 1 each Q3D MARTHA Administration Simple Syrup 15 ml 03/19/19 15:17 Simple Syrup FEEDTUBE PRN PRN Hypoglycemia Simple Syrup 30 ml 03/19/19 15:17 Simple Syrup FEEDTUBE PRN PRN Hypoglycemia Sodium Bicarbonate 325 mg 03/19/19 15:17 Sodium Bicarbonate FEEDTUBE PRN PRN For Clogged Feeding Tube Sodium Chloride 10 ml 03/18/19 22:00 03/28/19 22:11 Sodium Chloride Flush Syringe 10 Ml IV 10 ml BID MARTHA Administration Sodium Chloride 10 ml 03/18/19 17:32 Sodium Chloride Flush Syringe 10 Ml IV PRN PRN LINE FLUSH Vancomycin HCl 125 mg 03/27/19 13:00 03/29/19 07:16 Vancomycin Po PO 125 mg Q6HR MARTHA Administration Nutrition/Malnutrition Assess - Dietary Evaluation Nutrition/Malnutrition Findings: Nutrition Notes Start: 03/19/19 15:12 Freq: Status: Active Protocol: Document 03/27/19 11:21 CW (Rec: 03/27/19 12:02 CW [id number]) Co-Sign 03/27/19 11:21 LP Nutrition Notes Initial or Follow up Reassessment Current Diagnosis Acute Kidney Injury,Diabetes, Sepsis,Respiratory Failure, Hyperlipidemia Other Pertinent Diagnosis dehydration, AMS, metabolic encephalopathy Current Diet Vital AF 1.2 at 60ml/hr Labs/Tests BG 182 BUN 38 Cr 1.9 Pertinent Medications Humalog Height 5 ft 4 in Weight 86.183 kg [place] Body Weight (kg) 59.09 BMI 32.5 Weight change and time frame no wt change noted Subjective/Other Information FU for TF tolerance and Na labs. Pt's Na levels have stabilized at 137. BUN and Cr are slowly increasing. Pt TF regimen to be changed to Glucerna 1.2. Percent of energy/protein needs met: 93%/92% Burn Absent Trauma Absent Current % PO Negligible Minimum of two criteria No physical signs of malnutrition #1 Nutrition Diagnosis Inadequate oral intake Diagnosis Progress(for reassessment Continues documentation) Is patient on ventilator? Yes Is Patient Ambulatory and/or Out of Bed No REE-([place]-confined to bed) 1850.988 Kcal/Kg value to use for calculation 17 Approximate Energy Requirements Using 1465 kcal/Kg Calculation Used for Recommendations Kcal/kg Additional Notes Protein: >118g (>2g/kg IBW) Fluid :1ml/kcal Nutrition Intervention Change Diet Order: TF Nutrition Support: Change TF to Glucerna 1.2 at 55 ml/hr. Flush with 85 ml q4h Kcal 1,584 Protein (gm) 79 Fluid (mL) 1,063 Goal #1 Meet at least 80% of kcal and protein needs via TF Anticipated Discharge Needs: Unable to determine at this time Follow-Up By: 03/30/19 Additional Comments FU for TF tolerance, Na lab
[2019-03-29] MEDS: levETIRAcetam 500 MG/5 ML ORAL LIQD PO SCH (10:53)
[2019-03-29] MEDS: HEPARIN 5,000 UNIT/1 ML VIAL SUB-Q SCH ×2 (10:53→22:10)
[2019-03-29] MEDS: FAMOTIDINE 20 MG TAB PO SCH (10:54)
[2019-03-29] MEDS: cloNIDine TTS 0.2 MG/24 HR PATCH TD SCH (11:07)
[2019-03-29] MEDS: VANCOMYCIN/NS 1 GM/250 ML 1 GM/250 ML BAG IV SCH (11:08)
--- NOTE | 2019-03-29 13:41 | Progress Note ---
Assessment and Plan 1. Acute kidney injury: Vasomotor CRISTÓBAL in the setting of sepsis. Renal US negative for hydro. Renal function is improving. Continue IV fluids. Monitor renal function. Avoid nephrotoxic agents. Meds dosage based on GFR. 2. FEN: Anion gap metabolic acidosis, 2/2 Lactic acidosis, monitor. Hypernatremia, improved. Monitor lytes. 3. Sepsis. 4. Acute respiratory failure with hypoxia: Intubated on vent. 5. Seizures: Seen by Neuro. 6. DM type 2. 7. Encephalopathy: Multifactorial. Examination: General appearance: well-developed, appears stated age, intubated on vent HEENT: ATNC, DALIA Neck: trachea midline Respiratory: Clear to Auscultation Heart: regular, S1S2, no murmur Gastrointestinal: soft, normoactive bowel sounds, not tenderness, not distended Integumentary: no rash, warm and dry Neurologic: alert, awake, generalized movements Musculoskeletal: no edema Subjective Date of service: 03/29/19 Principal diagnosis: Severe Sepsis; CRISTÓBAL; Ac hypoxemic resp failure; DM II; Seizures; AMS Interval history: Patient was seen and examined at the bedside. No family present at bedside. No acute events overnight. Patient is more alert today with eyes open and generalized movement. Objective - Vital Signs Vital signs: Vital Signs - 12hr 03/29/19 03/29/19 03/29/19 02:00 03:00 03:35 Temperature 99.4 F Pulse Rate 88 87 Pulse Rate [ From Monitor] Respiratory 23 21 Rate Blood Pressure 133/61 127/61 O2 Sat by Pulse 96 96 Oximetry 03/29/19 03/29/19 03/29/19 04:00 04:35 05:01 Temperature Pulse Rate 84 80 85 Pulse Rate [ 84 From Monitor] Respiratory 18 17 Rate Blood Pressure 118/55 118/55 108/57 O2 Sat by Pulse 97 98 96 Oximetry 03/29/19 03/29/19 03/29/19 06:00 07:01 08:00 Temperature 98.2 F Pulse Rate 83 96 H 88 Pulse Rate [ From Monitor] Respiratory 21 21 Rate Blood Pressure 126/63 116/64 111/66 O2 Sat by Pulse 95 98 97 Oximetry 03/29/19 03/29/19 03/29/19 08:01 09:01 10:01 Temperature Pulse Rate 92 H 85 90 Pulse Rate [ From Monitor] Respiratory 22 18 14 Rate Blood Pressure 111/66 130/67 121/67 O2 Sat by Pulse 95 95 97 Oximetry 03/29/19 03/29/19 03/29/19 11:00 12:01 13:01 Temperature Pulse Rate 87 92 H 100 H Pulse Rate [ From Monitor] Respiratory 14 12 18 Rate Blood Pressure 120/62 120/62 120/62 O2 Sat by Pulse 96 99 97 Oximetry - Lab 03/29/19 06:17 03/29/19 06:17 Most recent lab results ABG pH 7.421 pH Units (7.350-7.450) 03/27/19 14:50 ABG pCO2 31.7 mm Hg 03/27/19 14:50 ABG pO2 108.8 mm Hg (80.0-90.0) H 03/27/19 14:50 ABG HCO3 20.2 mmol/L (20.0-26.0) 03/27/19 14:50 ABG O2 Saturation 98.0 % (95.0-99.0) 03/27/19 14:50 Calcium 9.1 mg/dL (8.4-10.2) 03/29/19 06:17 Phosphorus 3.10 mg/dL (2.5-4.5) 03/25/19 04:23 Magnesium 1.90 mg/dL (1.7-2.3) 03/21/19 04:07 Urine Creatinine 142.9 mg/dL (0.1-20.0) H 03/19/19 01:38 Urine Sodium 14 mmol/L 03/19/19 01:38 Medications & Allergies - Medications Allergies/Adverse Reactions: Allergies No Known Allergies Allergy (Verified 01/21/16 10:17) Home Medications: Home Medications Medication Instructions Recorded Confirmed Last Taken Type Acetaminophen [Acetaminophen TAB] 2 tab PO Q4H PRN #15 tablet 02/10/19 03/19/19 Unknown Rx Aspirin 325 mg PO QDAY #30 tablet 02/10/19 03/19/19 Unknown Rx Magnesium Hydroxide [Milk of 30 ml PO Q4H PRN #15 oral.liqd 02/10/19 03/19/19 Unknown Rx Magnesia] OLANzapine [ZyPREXA] 2.5 mg PO QDAY #30 tablet 02/10/19 03/19/19 Unknown Rx Pantoprazole [Protonix TAB] 20 mg PO QDAY #30 tablet. 02/10/19 03/19/19 Unknown Rx Active Medications: Generic Name Dose Route Start Last Admin Trade Name Freq PRN Reason Stop Dose Admin Acetaminophen 650 mg 03/21/19 10:29 03/26/19 01:37 Tylenol PO 650 mg Q4H PRN Administration Pain MILD(1-3)/Fever >100.5/ROSA Lipase/Protease/Amylase 1 each 03/19/19 15:17 Pancreaze 10,500 Unit FEEDTUBE PRN PRN For Clogged Feeding Tube Clonidine HCl 0.2 mg 03/22/19 12:00 03/29/19 11:07 Catapres-Tts Patch TD 0.2 mg Raymond MARTHA Administration Dextrose 0 ml 03/20/19 02:38 D50w (25gm) Syringe IV Q30MIN PRN Hypoglycemia Protocol Famotidine 20 mg 03/23/19 10:00 03/29/19 10:54 Pepcid PO 20 mg BID MARTHA Administration Glycopyrrolate 2 mg 03/28/19 20:00 03/29/19 07:16 Robinul PO 2 mg TID MARTHA Administration Heparin Sodium (Porcine) 5,000 unit 03/18/19 22:00 03/29/19 10:53 Heparin SUB-Q 5,000 unit Q12HR MARTHA Administration Hydralazine HCl 10 mg 03/22/19 02:51 03/26/19 00:38 Apresoline IV 10 mg Q4H PRN Administration Hypertension Hydrophilic Ointment 1 applic 03/21/19 17:45 Vaseline Lip Therapy TP Q2HR PRN Dry Lips Vancomycin HCl 1 gm in 250 mls @ 167.007 mls/hr 03/27/19 12:00 03/29/19 11:08 Vancomycin/Ns 1 Gm/250 Ml IV 167.007 mls/hr Q24H MARTHA Administration Insulin Human Lispro 0 unit 03/20/19 06:00 03/29/19 08:39 Humalog SUB-Q Not Given Q6HR MARTHA Protocol Levalbuterol HCl 0.63 mg 03/26/19 01:20 Xopenex IH Q8HRT PRN Shortness Of Breath Levetiracetam 750 mg 03/24/19 10:00 03/29/19 10:53 Keppra PO 750 mg BID MARTHA Administration Multi-Ingred Cream/Lotion/Oil/Oint 1 applic 03/21/19 17:45 Artificial Tears Ophth Oint OU Q4HR PRN Dry Eye(s) Scopolamine 1 each 03/26/19 14:00 03/26/19 13:55 Transderm-Scop TD 1 each Q3D MARTHA Administration Simple Syrup 15 ml 03/19/19 15:17 Simple Syrup FEEDTUBE PRN PRN Hypoglycemia Simple Syrup 30 ml 03/19/19 15:17 Simple Syrup FEEDTUBE PRN PRN Hypoglycemia Sodium Bicarbonate 325 mg 03/19/19 15:17 Sodium Bicarbonate FEEDTUBE PRN PRN For Clogged Feeding Tube Sodium Chloride 10 ml 03/18/19 22:00 03/29/19 10:54 Sodium Chloride Flush Syringe 10 Ml IV 10 ml BID MARTHA Administration Sodium Chloride 10 ml 03/18/19 17:32 Sodium Chloride Flush Syringe 10 Ml IV PRN PRN LINE FLUSH Vancomycin HCl 125 mg 03/27/19 13:00 03/29/19 07:16 Vancomycin Po PO 125 mg Q6HR MARTHA Administration
[2019-03-29 14:36] LABS: ABG Base Excess -0.2 mmol/L (-2.0-3.0); ABG HCO3 23.8 mmol/L (20.0-26.0); ABG Methemoglobin 0.5 % (0.0-1.5); ABG Oxygen Saturation 97.2 % (95.0-99.0); ABG PCO2 35.5 mm Hg; ABG PH 7.444 pH Units (7.350-7.450)
[2019-03-29] MEDS: SCOPOLAMINE TRANSDERMAL PATCH 72 HR TD SCH (15:45)
--- NOTE | 2019-03-29 15:50 | Progress Note ---
Assessment and Plan Severe Sepsis CRISTÓBAL Acidosis Acute respiratory failure with hypoxia HLD (hyperlipidemia) DM type 2 Acute onset seizure Acute encephalopathy (Toxic/Met) Hypophosphatemia (AMS is a significant rate limiting step to safe extubation currently) - extubate - continue Robinul for secretion control - prn BIPAP - continue Provigil - continue Lantus - continue scopolamine patch for secretion control - continue bronchodilators with pulmonary hygiene per RT - continue daily SAT's and SBT assessment as tolerated in am - continue to wean supplemental oxygen for target O2 sat's > 90% acutely - VAP bundle addressed - continue lung protective strategies - wean per pulmonary driven protocols otherwise - continue empiric broad spectrum coverage per ID recommendations - continue set rate on MVS at 12/min - enteral nutrition at goal rate as tolerated - neurology evaluation ongoing (AED's per neuro) - accuchecks with glycemic control per SSI (While critically ill target blood glucose of 140-180 mg/dL; avoid hypoglycemia) - prn analgesia per CPOT score - Maintenance of sleep-wake cycle, avoid delirium - G.I. 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 re-evaluate in am & prn CONDITION: CRITICAL PROGNOSIS: GUARDED CODE STATUS: FULL CODE The high probability of a clinically significant, sudden or life-threatening deterioration of the [respiratory, cardiovascular & neurologic] system(s) required my full and direct attention, intervention and personal management. The aggregate critical care time was [32] minutes without overlap. Time includes spent on; [x] Data Review and interpretation [x] Patient assessment and monitoring of vital signs [x] Documentation [x] Medication orders and management Subjective Date of service: 03/29/19 Principal diagnosis: Severe Sepsis; CRISTÓBAL; Ac hypoxemic resp failure; DM II; Seiz ures; AMS Interval history: Patient is seen today for: Severe Sepsis; CRISTÓBAL; Acidosis; Acute hypoxemic respiratory failure; HLD; DM type 2; Acute onset seizure; Acute encephalopathy (Toxic/Met) Seen and examined at bedside; 24hour events reviewed; nursing and respiratory care staff consulted; no adverse overnight events reported to me; remains on MVS; secretions better; more alert and purposeful; No N/V/F/C Objective Vital Signs - 12hr 03/29/19 03/29/1903/29/20 04:00 04:35 05:01 Temperature Pulse Rate 84 80 85 Pulse Rate [ 84 From Monitor] Respiratory 18 17 Rate Blood Pressure 118/55 118/55 108/57 O2 Sat by Pulse 97 98 96 Oximetry 03/29/19 03/29/19 03/29/19 06:00 07:01 08:00 Temperature 98.2 F Pulse Rate 83 96 H 78 Pulse Rate [ 76 From Monitor] Respiratory 21 21 18 Rate Blood Pressure 126/63 116/64 111/66 O2 Sat by Pulse 95 98 100 Oximetry 03/29/19 03/29/19 03/29/19 08:01 09:01 09:05 Temperature Pulse Rate 92 H 85 86 Pulse Rate [ From Monitor] Respiratory 22 18 13 Rate Blood Pressure 111/66 130/67 120/62 O2 Sat by Pulse 95 95 98 Oximetry 03/29/19 03/29/19 03/29/19 10:01 11:00 12:00 Temperature 98.3 F Pulse Rate 90 87 90 Pulse Rate [ 90 From Monitor] Respiratory 14 14 18 Rate Blood Pressure 121/67 120/62 O2 Sat by Pulse 97 96 98 Oximetry 03/29/19 03/29/19 03/29/19 12:01 12:05 13:01 Temperature Pulse Rate 92 H 100 H 100 H Pulse Rate [ From Monitor] Respiratory 12 27 H 18 Rate Blood Pressure 120/62 107/62 120/62 O2 Sat by Pulse 99 98 97 Oximetry 03/29/19 15:26 Temperature Pulse Rate Pulse Rate [ From Monitor] Respiratory Rate Blood Pressure O2 Sat by Pulse 98 Oximetry Constitutional: no acute distress, other (elderly looking CM normocephalic with mildly increased respiratory effort on MVS) Eyes: non-icteric ENT: oropharynx moist, other (ETT 23 cm MARILYN) Neck: supple, no lymphadenopathy, no JVD Effort: mildly labored Ascultation: Bilateral: diminished breath sounds, rhonchi (scant) Percussion: Bilateral: not dull Cardiovascular: regular rate and rhythm Gastrointestinal: normoactive bowel sounds, soft, non-tender, non-distended Integumentary: normal Extremities: no cyanosis, no edema, pink and warm, pulses normal Neurologic: unable to assess, other (attempts top dislodge ETT) Psychiatric: other (responds to name calling) CBC and BMP: 03/30/19 05:54 03/30/19 05:54 ABG, PT/INR, D-dimer: ABG ABG pH 7.444 pH Units (7.350-7.450) 03/29/19 13:40 ABG pCO2 35.5 mm Hg 03/29/19 13:40 ABG pO2 86.0 mm Hg (80.0-90.0) 03/29/19 13:40 ABG O2 Saturation 97.2 % (95.0-99.0) 03/29/19 13:40 PT/INR, D-dimer PT 14.4 Sec. (12.2-14.9) 03/18/19 14:17 INR 1.11 (0.87-1.13) 03/18/19 14:17 Abnormal lab findings: Abnormal Labs 03/18/19 03/18/19 03/18/19 14:17 14:17 14:17 WBC 38.1 H RBC Hgb Hct MCV 83 L MCH 27 L Plt Count 740 H Lymph % (Auto) Lymph # [place] # Seg Neutrophils % Seg Neuts % (Manual) 93.0 H Lymphocytes % (Manual) 2.5 L Monocytes % (Manual) Seg Neutrophils # Seg Neutrophils # Man 35.4 H Lymphocytes # (Manual) 1.0 L Monocytes # (Manual) 1.5 H Thrombin Time 14.7 L ABG pH ABG pO2 ABG O2 Saturation ABG Base Excess ABG Hemoglobin Sodium Potassium Chloride 94.9 L Carbon Dioxide 20 L BUN 34 H Creatinine 2.7 H Glucose 244 H POC Glucose Lactic Acid Calcium 10.6 H Phosphorus Total Creatine Kinase Troponin T 0.297 H* Total Protein Albumin Cholesterol 264 H LDL Cholesterol Direct 182 H Ur Specific [place] Urine WBC (Auto) Urine Creatinine 03/18/19 03/18/19 03/18/19 15:33 15:33 17:55 WBC RBC Hgb Hct MCV MCH Plt Count Lymph % (Auto) Lymph # [place] # Seg Neutrophils % Seg Neuts % (Manual) Lymphocytes % (Manual) Monocytes % (Manual) Seg Neutrophils # Seg Neutrophils # Man Lymphocytes # (Manual) Monocytes # (Manual) Thrombin Time ABG pH ABG pO2 ABG O2 Saturation ABG Base Excess ABG Hemoglobin Sodium Potassium Chloride Carbon Dioxide BUN Creatinine Glucose POC Glucose Lactic Acid 2.70 H* 3.00 H* Calcium Phosphorus Total Creatine Kinase 2896 H Troponin T Total Protein Albumin Cholesterol LDL Cholesterol Direct Ur Specific [place] Urine WBC (Auto) Urine Creatinine 03/18/19 03/18/19 03/18/19 20:22 Unknown Unknown WBC RBC Hgb Hct MCV MCH Plt Count Lymph % (Auto) Lymph # [place] # Seg Neutrophils % Seg Neuts % (Manual) Lymphocytes % (Manual) Monocytes % (Manual) Seg Neutrophils # Seg Neutrophils # Man Lymphocytes # (Manual) Monocytes # (Manual) Thrombin Time ABG pH ABG pO2 183.5 H ABG O2 Saturation 99.2 H ABG Base Excess ABG Hemoglobin 12.7 L Sodium Potassium Chloride Carbon Dioxide BUN Creatinine Glucose POC Glucose Lactic Acid 3.00 H* Calcium Phosphorus Total Creatine Kinase Troponin T Total Protein Albumin Cholesterol LDL Cholesterol Direct Ur Specific [place] 1.046 H Urine WBC (Auto) 23.0 H Urine Creatinine 03/19/19 03/19/19 03/19/19 01:38 02:56 02:56 WBC 25.4 H RBC Hgb 11.3 L Hct 34.1 L D MCV 83 L MCH 27 L Plt Count 496 H Lymph % (Auto) Lymph # [place] # Seg Neutrophils % Seg Neuts % (Manual) 90.0 H Lymphocytes % (Manual) 3.0 L Monocytes % (Manual) Seg Neutrophils # Seg Neutrophils # Man 22.9 H Lymphocytes # (Manual) 0.8 L Monocytes # (Manual) 1.8 H Thrombin Time ABG pH ABG pO2 ABG O2 Saturation ABG Base Excess ABG Hemoglobin Sodium Potassium Chloride Carbon Dioxide 20 L BUN 34 H Creatinine 2.5 H Glucose 208 H POC Glucose Lactic Acid Calcium Phosphorus Total Creatine Kinase Troponin T Total Protein 5.9 L Albumin 2.9 L Cholesterol LDL Cholesterol Direct Ur Specific [place] Urine WBC (Auto) Urine Creatinine 142.9 H 03/19/19 03/19/19 03/19/19 05:12 14:39 23:08 WBC RBC Hgb Hct MCV MCH Plt Count Lymph % (Auto) Lymph # [place] # Seg Neutrophils % Seg Neuts % (Manual) Lymphocytes % (Manual) Monocytes % (Manual) Seg Neutrophils # Seg Neutrophils # Man Lymphocytes # (Manual) Monocytes # (Manual) Thrombin Time ABG pH ABG pO2 201.8 H ABG O2 Saturation 99.3 H ABG Base Excess -2.8 L ABG Hemoglobin Sodium Potassium Chloride Carbon Dioxide BUN Creatinine Glucose POC Glucose 185 H Lactic Acid Calcium Phosphorus Total Creatine Kinase Troponin T 0.200 H* D Total Protein Albumin Cholesterol LDL Cholesterol Direct Ur Specific [place] Urine WBC (Auto) Urine Creatinine 03/20/19 03/20/19 03/20/19 00:12 03:44 05:19 WBC RBC Hgb Hct MCV MCH Plt Count Lymph % (Auto) Lymph # [place] # Seg Neutrophils % Seg Neuts % (Manual) Lymphocytes % (Manual) Monocytes % (Manual) Seg Neutrophils # Seg Neutrophils # Man Lymphocytes # (Manual) Monocytes # (Manual) Thrombin Time ABG pH ABG pO2 122.8 H ABG O2 Saturation ABG Base Excess -3.0 L ABG Hemoglobin 8.9 L Sodium Potassium Chloride Carbon Dioxide BUN Creatinine Glucose POC Glucose 193 H 202 H Lactic Acid Calcium Phosphorus Total Creatine Kinase Troponin T Total Protein Albumin Cholesterol LDL Cholesterol Direct Ur Specific [place] Urine WBC (Auto) Urine Creatinine 03/20/19 03/20/19 03/20/19 05:26 05:26 05:26 WBC 19.5 H RBC Hgb 10.8 L Hct 33.0 L MCV 82 L MCH 27 L Plt Count Lymph % (Auto) 5.4 L Lymph # 1.1 L [place] # 1.4 H Seg Neutrophils % 86.8 H Seg Neuts % (Manual) Lymphocytes % (Manual) Monocytes % (Manual) Seg Neutrophils # 16.9 H Seg Neutrophils # Man Lymphocytes # (Manual) Monocytes # (Manual) Thrombin Time ABG pH ABG pO2 ABG O2 Saturation ABG Base Excess ABG Hemoglobin Sodium Potassium Chloride 110.5 H Carbon Dioxide 17 L BUN 41 H Creatinine 2.6 H Glucose 199 H POC Glucose Lactic Acid Calcium Phosphorus Total Creatine Kinase 396 H Troponin T 0.191 H* Total Protein Albumin Cholesterol LDL Cholesterol Direct Ur Specific [place] Urine WBC (Auto) Urine Creatinine 03/20/19 03/20/19 03/20/19 11:33 15:23 18:28 WBC RBC Hgb Hct MCV MCH Plt Count Lymph % (Auto) Lymph # [place] # Seg Neutrophils % Seg Neuts % (Manual) Lymphocytes % (Manual) Monocytes % (Manual) Seg Neutrophils # Seg Neutrophils # Man Lymphocytes # (Manual) Monocytes # (Manual) Thrombin Time ABG pH ABG pO2 ABG O2 Saturation ABG Base Excess ABG Hemoglobin Sodium Potassium Chloride Carbon Dioxide BUN Creatinine Glucose POC Glucose 196 H 190 H Lactic Acid Calcium Phosphorus Total Creatine Kinase Troponin T 0.214 H* Total Protein Albumin Cholesterol LDL Cholesterol Direct Ur Specific [place] Urine WBC (Auto) Urine Creatinine 03/20/19 03/21/19 03/21/19 23:14 03:29 04:07 WBC RBC Hgb Hct MCV MCH Plt Count Lymph % (Auto) Lymph # [place] # Seg Neutrophils % Seg Neuts % (Manual) Lymphocytes % (Manual) Monocytes % (Manual) Seg Neutrophils # Seg Neutrophils # Man Lymphocytes # (Manual) Monocytes # (Manual) Thrombin Time ABG pH 7.483 H ABG pO2 97.5 H ABG O2 Saturation ABG Base Excess ABG Hemoglobin 8.5 L Sodium 146 H Potassium 3.1 L D Chloride 109.8 H Carbon Dioxide BUN 35 H Creatinine 1.9 H Glucose 200 H POC Glucose 190 H Lactic Acid Calcium Phosphorus 1.80 L Total Creatine Kinase Troponin T Total Protein Albumin Cholesterol LDL Cholesterol Direct Ur Specific [place] Urine WBC (Auto) Urine Creatinine 03/21/19 03/21/19 03/21/19 05:22 11:52 18:06 WBC RBC Hgb Hct MCV MCH Plt Count Lymph % (Auto) Lymph # [place] # Seg Neutrophils % Seg Neuts % (Manual) Lymphocytes % (Manual) Monocytes % (Manual) Seg Neutrophils # Seg Neutrophils # Man Lymphocytes # (Manual) Monocytes # (Manual) Thrombin Time ABG pH ABG pO2 ABG O2 Saturation ABG Base Excess ABG Hemoglobin Sodium Potassium Chloride Carbon Dioxide BUN Creatinine Glucose POC Glucose 189 H 236 H 164 H Lactic Acid Calcium Phosphorus Total Creatine Kinase Troponin T Total Protein Albumin Cholesterol LDL Cholesterol Direct Ur Specific [place] Urine WBC (Auto) Urine Creatinine 03/21/19 03/22/19 03/22/19 23:36 04:47 04:47 WBC RBC 3.62 L Hgb 10.1 L Hct 29.9 L MCV 83 L MCH Plt Count Lymph % (Auto) Lymph # [place] # Seg Neutrophils % Seg Neuts % (Manual) 83.0 H Lymphocytes % (Manual) 8.0 L Monocytes % (Manual) 8.0 H Seg Neutrophils # Seg Neutrophils # Man 8.8 H Lymphocytes # (Manual) 0.8 L Monocytes # (Manual) Thrombin Time ABG pH ABG pO2 ABG O2 Saturation ABG Base Excess ABG Hemoglobin Sodium Potassium Chloride 107.8 H Carbon Dioxide 19 L BUN 28 H Creatinine 1.6 H Glucose 198 H POC Glucose 211 H Lactic Acid Calcium Phosphorus 2.40 L D Total Creatine Kinase Troponin T Total Protein Albumin Cholesterol LDL Cholesterol Direct Ur Specific [place] Urine WBC (Auto) Urine Creatinine 03/22/19 03/22/19 03/22/19 05:20 05:29 10:10 WBC RBC Hgb Hct MCV MCH Plt Count Lymph % (Auto) Lymph # [place] # Seg Neutrophils % Seg Neuts % (Manual) Lymphocytes % (Manual) Monocytes % (Manual) Seg Neutrophils # Seg Neutrophils # Man Lymphocytes # (Manual) Monocytes # (Manual) Thrombin Time ABG pH 7.481 H 7.483 H ABG pO2 74.6 L 79.4 L ABG O2 Saturation ABG Base Excess ABG Hemoglobin 9.7 L 9.2 L Sodium Potassium Chloride Carbon Dioxide BUN Creatinine Glucose POC Glucose 202 H Lactic Acid Calcium Phosphorus Total Creatine Kinase Troponin T Total Protein Albumin Cholesterol LDL Cholesterol Direct Ur Specific [place] Urine WBC (Auto) Urine Creatinine 03/22/19 03/22/19 03/22/19 12:29 17:34 23:16 WBC RBC Hgb Hct MCV MCH Plt Count Lymph % (Auto) Lymph # [place] # Seg Neutrophils % Seg Neuts % (Manual) Lymphocytes % (Manual) Monocytes % (Manual) Seg Neutrophils # Seg Neutrophils # Man Lymphocytes # (Manual) Monocytes # (Manual) Thrombin Time ABG pH ABG pO2 ABG O2 Saturation ABG Base Excess ABG Hemoglobin Sodium Potassium Chloride Carbon Dioxide BUN Creatinine Glucose POC Glucose 234 H 225 H 205 H Lactic Acid Calcium Phosphorus Total Creatine Kinase Troponin T Total Protein Albumin Cholesterol LDL Cholesterol Direct Ur Specific [place] Urine WBC (Auto) Urine Creatinine 03/23/19 03/23/19 03/23/19 03:27 03:50 04:17 WBC RBC Hgb Hct MCV MCH Plt Count Lymph % (Auto) Lymph # [place] # Seg Neutrophils % Seg Neuts % (Manual) Lymphocytes % (Manual) Monocytes % (Manual) Seg Neutrophils # Seg Neutrophils # Man Lymphocytes # (Manual) Monocytes # (Manual) Thrombin Time ABG pH 7.486 H ABG pO2 75.2 L ABG O2 Saturation ABG Base Excess ABG Hemoglobin 9.6 L Sodium Potassium Chloride Carbon Dioxide BUN Creatinine Glucose POC Glucose 113 H 173 H Lactic Acid Calcium Phosphorus Total Creatine Kinase Troponin T Total Protein Albumin Cholesterol LDL Cholesterol Direct Ur Specific [place] Urine WBC (Auto) Urine Creatinine 03/23/19 03/23/19 03/23/19 05:12 12:32 18:20 WBC RBC Hgb Hct MCV MCH Plt Count Lymph % (Auto) Lymph # [place] # Seg Neutrophils % Seg Neuts % (Manual) Lymphocytes % (Manual) Monocytes % (Manual) Seg Neutrophils # Seg Neutrophils # Man Lymphocytes # (Manual) Monocytes # (Manual) Thrombin Time ABG pH ABG pO2 ABG O2 Saturation ABG Base Excess ABG Hemoglobin Sodium Potassium Chloride 107.3 H Carbon Dioxide 21 L BUN 27 H Creatinine 1.6 H Glucose 166 H POC Glucose 212 H 190 H Lactic Acid Calcium Phosphorus Total Creatine Kinase Troponin T Total Protein Albumin Cholesterol LDL Cholesterol Direct Ur Specific [place] Urine WBC (Auto) Urine Creatinine 03/23/19 03/24/19 03/24/19 23:40 05:15 05:24 WBC RBC Hgb Hct MCV MCH Plt Count Lymph % (Auto) Lymph # [place] # Seg Neutrophils % Seg Neuts % (Manual) Lymphocytes % (Manual) Monocytes % (Manual) Seg Neutrophils # Seg Neutrophils # Man Lymphocytes # (Manual) Monocytes # (Manual) Thrombin Time ABG pH ABG pO2 ABG O2 Saturation ABG Base Excess ABG Hemoglobin Sodium Potassium Chloride Carbon Dioxide 21 L BUN 28 H Creatinine Glucose 139 H POC Glucose 172 H 128 H Lactic Acid Calcium Phosphorus Total Creatine Kinase Troponin T Total Protein Albumin Cholesterol LDL Cholesterol Direct Ur Specific [place] Urine WBC (Auto) Urine Creatinine 03/24/19 03/24/19 03/24/19 12:21 17:16 23:27 WBC RBC Hgb Hct MCV MCH Plt Count Lymph % (Auto) Lymph # [place] # Seg Neutrophils % Seg Neuts % (Manual) Lymphocytes % (Manual) Monocytes % (Manual) Seg Neutrophils # Seg Neutrophils # Man Lymphocytes # (Manual) Monocytes # (Manual) Thrombin Time ABG pH ABG pO2 ABG O2 Saturation ABG Base Excess ABG Hemoglobin Sodium Potassium Chloride Carbon Dioxide BUN Creatinine Glucose POC Glucose 213 H 200 H 189 H Lactic Acid Calcium Phosphorus Total Creatine Kinase Troponin T Total Protein Albumin Cholesterol LDL Cholesterol Direct Ur Specific [place] Urine WBC (Auto) Urine Creatinine 03/25/19 03/25/19 03/25/19 01:57 04:23 05:24 WBC RBC Hgb Hct MCV MCH Plt Count Lymph % (Auto) Lymph # [place] # Seg Neutrophils % Seg Neuts % (Manual) Lymphocytes % (Manual) Monocytes % (Manual) Seg Neutrophils # Seg Neutrophils # Man Lymphocytes # (Manual) Monocytes # (Manual) Thrombin Time ABG pH 7.470 H ABG pO2 73.5 L ABG O2 Saturation ABG Base Excess ABG Hemoglobin 7.5 L Sodium 134 L Potassium Chloride Carbon Dioxide 21 L BUN 28 H Creatinine Glucose 179 H POC Glucose 198 H Lactic Acid Calcium 8.3 L Phosphorus Total Creatine Kinase Troponin T Total Protein Albumin Cholesterol LDL Cholesterol Direct Ur Specific [place] Urine WBC (Auto) Urine Creatinine 03/25/19 03/25/19 03/25/19 12:23 17:31 23:59 WBC RBC Hgb Hct MCV MCH Plt Count Lymph % (Auto) Lymph # [place] # Seg Neutrophils % Seg Neuts % (Manual) Lymphocytes % (Manual) Monocytes % (Manual) Seg Neutrophils # Seg Neutrophils # Man Lymphocytes # (Manual) Monocytes # (Manual) Thrombin Time ABG pH ABG pO2 ABG O2 Saturation ABG Base Excess ABG Hemoglobin Sodium Potassium Chloride Carbon Dioxide BUN Creatinine Glucose POC Glucose 184 H 181 H 198 H Lactic Acid Calcium Phosphorus Total Creatine Kinase Troponin T Total Protein Albumin Cholesterol LDL Cholesterol Direct Ur Specific [place] Urine WBC (Auto) Urine Creatinine 03/26/19 03/26/19 03/26/19 04:49 04:49 05:44 WBC 12.4 H RBC 3.47 L Hgb 9.6 L Hct 28.6 L MCV 82 L MCH Plt Count Lymph % (Auto) 6.3 L Lymph # 0.8 L [place] # Seg Neutrophils % 88.2 H Seg Neuts % (Manual) Lymphocytes % (Manual) Monocytes % (Manual) Seg Neutrophils # 10.9 H Seg Neutrophils # Man Lymphocytes # (Manual) Monocytes # (Manual) Thrombin Time ABG pH ABG pO2 ABG O2 Saturation ABG Base Excess ABG Hemoglobin Sodium 132 L Potassium Chloride 96.8 L Carbon Dioxide 21 L BUN 29 H Creatinine Glucose 225 H POC Glucose 219 H Lactic Acid Calcium Phosphorus Total Creatine Kinase Troponin T Total Protein Albumin Cholesterol LDL Cholesterol Direct Ur Specific [place] Urine WBC (Auto) Urine Creatinine 03/26/19 03/26/19 03/26/19 12:40 18:27 23:25 WBC RBC Hgb Hct MCV MCH Plt Count Lymph % (Auto) Lymph # [place] # Seg Neutrophils % Seg Neuts % (Manual) Lymphocytes % (Manual) Monocytes % (Manual) Seg Neutrophils # Seg Neutrophils # Man Lymphocytes # (Manual) Monocytes # (Manual) Thrombin Time ABG pH ABG pO2 ABG O2 Saturation ABG Base Excess ABG Hemoglobin Sodium Potassium Chloride Carbon Dioxide BUN Creatinine Glucose POC Glucose 236 H 216 H 227 H Lactic Acid Calcium Phosphorus Total Creatine Kinase Troponin T Total Protein Albumin Cholesterol LDL Cholesterol Direct Ur Specific [place] Urine WBC (Auto) Urine Creatinine 03/27/19 03/27/19 03/27/19 04:42 05:27 12:04 WBC RBC Hgb Hct MCV MCH Plt Count Lymph % (Auto) Lymph # [place] # Seg Neutrophils % Seg Neuts % (Manual) Lymphocytes % (Manual) Monocytes % (Manual) Seg Neutrophils # Seg Neutrophils # Man Lymphocytes # (Manual) Monocytes # (Manual) Thrombin Time ABG pH ABG pO2 ABG O2 Saturation ABG Base Excess ABG Hemoglobin Sodium Potassium Chloride Carbon Dioxide BUN 38 H Creatinine 1.9 H Glucose 182 H POC Glucose 188 H 226 H Lactic Acid Calcium Phosphorus Total Creatine Kinase Troponin T Total Protein Albumin Cholesterol LDL Cholesterol Direct Ur Specific [place] Urine WBC (Auto) Urine Creatinine 03/27/19 03/27/19 03/27/19 14:50 19:07 23:57 WBC RBC Hgb Hct MCV MCH Plt Count Lymph % (Auto) Lymph # [place] # Seg Neutrophils % Seg Neuts % (Manual) Lymphocytes % (Manual) Monocytes % (Manual) Seg Neutrophils # Seg Neutrophils # Man Lymphocytes # (Manual) Monocytes # (Manual) Thrombin Time ABG pH ABG pO2 108.8 H ABG O2 Saturation ABG Base Excess -3.1 L ABG Hemoglobin Sodium Potassium Chloride Carbon Dioxide BUN Creatinine Glucose POC Glucose 196 H 208 H Lactic Acid Calcium Phosphorus Total Creatine Kinase Troponin T Total Protein Albumin Cholesterol LDL Cholesterol Direct Ur Specific [place] Urine WBC (Auto) Urine Creatinine 03/28/19 03/28/19 03/28/19 04:03 04:03 05:37 WBC 15.3 H RBC 2.93 L Hgb 8.1 L Hct 24.1 L MCV 82 L MCH Plt Count Lymph % (Auto) Lymph # [place] # Seg Neutrophils % Seg Neuts % (Manual) 85.0 H Lymphocytes % (Manual) 6.0 L Monocytes % (Manual) Seg Neutrophils # Seg Neutrophils # Man 13.0 H Lymphocytes # (Manual) 0.9 L Monocytes # (Manual) Thrombin Time ABG pH ABG pO2 ABG O2 Saturation ABG Base Excess ABG Hemoglobin Sodium 136 L Potassium Chloride Carbon Dioxide 21 L BUN 36 H Creatinine 1.8 H Glucose 163 H POC Glucose 157 H Lactic Acid Calcium Phosphorus Total Creatine Kinase Troponin T Total Protein Albumin Cholesterol LDL Cholesterol Direct Ur Specific [place] Urine WBC (Auto) Urine Creatinine 02/03/1603/28/19 03/29/19 12:22 18:15 00:18 WBC RBC Hgb Hct MCV MCH Plt Count Lymph % (Auto) Lymph # [place] # Seg Neutrophils % Seg Neuts % (Manual) Lymphocytes % (Manual) Monocytes % (Manual) Seg Neutrophils # Seg Neutrophils # Man Lymphocytes # (Manual) Monocytes # (Manual) Thrombin Time ABG pH ABG pO2 ABG O2 Saturation ABG Base Excess ABG Hemoglobin Sodium Potassium Chloride Carbon Dioxide BUN Creatinine Glucose POC Glucose 207 H 170 H 193 H Lactic Acid Calcium Phosphorus Total Creatine Kinase Troponin T Total Protein Albumin Cholesterol LDL Cholesterol Direct Ur Specific [place] Urine WBC (Auto) Urine Creatinine 03/29/19 03/29/19 03/29/19 05:49 06:17 06:17 WBC 11.2 H RBC 2.87 L Hgb 7.8 L Hct 23.5 L MCV 82 L MCH 27 L Plt Count Lymph % (Auto) Lymph # [place] # Seg Neutrophils % Seg Neuts % (Manual) Lymphocytes % (Manual) Monocytes % (Manual) Seg Neutrophils # Seg Neutrophils # Man Lymphocytes # (Manual) Monocytes # (Manual) Thrombin Time ABG pH ABG pO2 ABG O2 Saturation ABG Base Excess ABG Hemoglobin Sodium Potassium Chloride Carbon Dioxide BUN 30 H Creatinine Glucose 149 H POC Glucose 110 H Lactic Acid Calcium Phosphorus Total Creatine Kinase Troponin T Total Protein Albumin Cholesterol LDL Cholesterol Direct Ur Specific [place] Urine WBC (Auto) Urine Creatinine 03/29/19 03/29/19 12:36 13:40 WBC RBC Hgb Hct MCV MCH Plt Count Lymph % (Auto) Lymph # [place] # Seg Neutrophils % Seg Neuts % (Manual) Lymphocytes % (Manual) Monocytes % (Manual) Seg Neutrophils # Seg Neutrophils # Man Lymphocytes # (Manual) Monocytes # (Manual) Thrombin Time ABG pH ABG pO2 ABG O2 Saturation ABG Base Excess ABG Hemoglobin 7.6 L Sodium Potassium Chloride Carbon Dioxide BUN Creatinine Glucose POC Glucose 164 H Lactic Acid Calcium Phosphorus Total Creatine Kinase Troponin T Total Protein Albumin Cholesterol LDL Cholesterol Direct Ur Specific [place] Urine WBC (Auto) Urine Creatinine Chest x-ray: pending Allied health notes reviewed: nursing
--- NOTE | 2019-03-29 19:18 | XRay Report ---
Abdomen single view INDICATION: Abdominal pain IMPRESSION: No Dobbhoff tube is identified on this examination. Signer Name: Juan Antonio Prince MD Signed: 03/29/2019 7:14 PM Workstation Name: [id number]
--- NOTE | 2019-03-29 23:52 | XRay Report ---
ABDOMEN 2 VIEW(S) INDICATION / CLINICAL INFORMATION: Dobhof tube placement. COMPARISON: Abdomen from earlier today FINDINGS: TUBES / LINES: None. BOWEL GAS PATTERN: No significant abnormality. FREE AIR / EXTRALUMINAL GAS: None seen. ADDITIONAL FINDINGS: No significant additional findings. IMPRESSION: 1. No tube identified on this exam. Unchanged exam. Signer Name: Vincenzo Alanis MD Signed: 03/29/2019 11:48 PM Workstation Name: [id number]
[2019-03-30] MEDS: GLYCOPYRROLATE 1 MG TAB PO SCH ×3 (00:34→14:33)
[2019-03-30] MEDS: VANCOMYCIN 250 MG/10 ML ORAL LIQD PO SCH ×4 (00:36→18:09)
[2019-03-30] MEDS: INSULIN LISPRO 100 UNIT/ML SUB-Q SCH ×4 (01:00→17:34)
[2019-03-30] MEDS: FAMOTIDINE 20 MG/2 ML INJ IV SCH ×2 (01:11→10:15)
[2019-03-30] MEDS: levETIRAcetam 750 MG in DEXTROSE 5% IN WATER 100 ML IV SCH ×2 (01:11→10:17)
[2019-03-30] MEDS: FAMOTIDINE 20 MG TAB PO SCH (04:42)
[2019-03-30] MEDS: levETIRAcetam 500 MG/5 ML ORAL LIQD PO SCH (04:42)
[2019-03-30 06:26] LABS: Mean Corpuscular HGB Conc 35 % (32-34); Mean Corpuscular Volume 82 fl (84-94); Platelet Count 427 K/mm3 (140-440); Red Cell Distribution Width 14.5 % (13.2-15.2)
[2019-03-30 06:49] LABS: Calcium 9.4 mg/dL (8.4-10.2)
--- NOTE | 2019-03-30 09:07 | Progress Note ---
Assessment and Plan Assessment and plan: / Acute respiratory failure with hypoxia Patient was intubated and placed on ventilatory support - extubated 03/28 /new onset diarrhea since 03/25/19 - restarted abx -vanco po, C.def ordered /New GPC bacteremia: 02/28 bottles 03/26/19, follow up final results. Continue IV Vancomycin for now. /Acute encephalopathy -improving likely from SIRS vs CRISTÓBAL Vs underlying seizure monitor clinically. MRI brain w/o any acute change, CSF study negative cont to treat underlying cause, neurology following / SIRS, likely from new onset seizure Sepsis with possible meningitis - ruled out cannot r/o meningitis as presented with seizure, encephalopathy and elevated white count Admited to ICU with Sepsis protocol: IV fluid resuscitation therapy, serial CBC, BMP, lactic acid level, IV abx, ordered Cx negative blood cx report, URINE for MSSA - could be a skin contaminant ordered for LP - placed on Iv coverage for viral and bacterial meningitis, ID consulted s/p LP 03/20/19 - study result not convincing for bacterial meningitis, also negative for viral PCR cont to treat for seizure, wbc trended down, d/aria abx for meningitis / CRISTÓBAL (acute kidney injury): likely vasomotor nephropathy resolved- cont IV fluid resuscitation therapy, monitor urine output every shift, strict I's/O, Nephrology following /hypokalemia, repleted, follow BMP / metabolic Acidosis - due to sepsis vs CRISTÓBAL - resolved IV fluid resuscitation therapy, monitor urine output every shift, s/p IV bicarbonate therapy. / HLD (hyperlipidemia) TF diet for now, statin therapy as clinically indicated. / DM type 2 - SSI as needed /Acute onset seizure, started on keppra - EEG showed + for seizure, neurology recomsulted /DVT prophylaxis SCD to bilateral lower extremities while in bed, prophylactic heparin. The high probability of a clinically significant, sudden or life threatening deterioration of the [cardiac, pulmonary, renal, neurologic] system(s) required my full and direct attention, intervention and personal management. The aggregate critical care time was [33] minutes. This time is in addition to time spent performing reported procedures but includes the following: [x] Data Review and interpretation [x] Patient assessment and monitoring of vital signs [x] Documentation [x] Medication orders and management History Interval history: Extubated yesterday 03/29 Fever on 03/28 Hospitalist Physical - Physical exam Narrative exam: General appearance: Present: other NAD, opens eyes - EENT Eyes: no scleral icterus, no conjunctival injection ENT: clear oral mucosa Ears: bilateral: normal - Neck Neck: no rigidity, no enlarged thyroid - Respiratory Respiratory effort: other (on mechanical ventilation) Respiratory: bilateral: CTA - Cardiovascular Rhythm: regular Heart Sounds: Present: S1 & S2. Absent: gallop, rub Extremities: pulses intact, No edema, normal color - Gastrointestinal General gastrointestinal: Present: soft, non-tender, non-distended, normal bowel sounds - Integumentary Integumentary: clear, warm, dry - Musculoskeletal Musculoskeletal: no joint swelling - Neurologic Neurologic: awake,alert - Constitutional Vitals: Temp Pulse Resp BP Pulse Ox 97.8 F 87 21 152/72 98 03/30/19 08:00 03/30/19 08:00 03/30/19 08:00 03/30/19 08:00 03/30/19 08:00 General appearance: Present: other (intubated and sedated) Results - Labs CBC & Chem 7: 03/30/19 05:54 03/30/19 05:54 Labs: Laboratory Last Values WBC 10.6 K/mm3 (4.5-11.0) 03/30/19 05:54 RBC 2.80 M/mm3 (3.65-5.03) L 03/30/19 05:54 Hgb 8.0 gm/dl (11.8-15.2) L 03/30/19 05:54 Hct 23.0 % (35.5-45.6) L 03/30/19 05:54 MCV 82 fl (84-94) L 03/30/19 05:54 MCH 28 pg (28-32) 03/30/19 05:54 MCHC 35 % (32-34) H 03/30/19 05:54 RDW 14.5 % (13.2-15.2) 03/30/19 05:54 Plt Count 427 K/mm3 (140-440) 03/30/19 05:54 Lymph % (Auto) 6.3 % (13.4-35.0) L 03/26/19 04:49 [place] % (Auto) 4.5 % (0.0-7.3) 03/26/19 04:49 Eos % (Auto) 0.4 % (0.0-4.3) 03/26/19 04:49 Baso % (Auto) 0.6 % (0.0-1.8) 03/26/19 04:49 Lymph # 0.8 K/mm3 (1.2-5.4) L 03/26/19 04:49 [place] # 0.6 K/mm3 (0.0-0.8) 03/26/19 04:49 Eos # 0.1 K/mm3 (0.0-0.4) 03/26/19 04:49 Baso # 0.1 K/mm3 (0.0-0.1) 03/26/19 04:49 Add Manual Diff Complete 03/28/19 04:03 Total Counted 100 03/28/19 04:03 Seg Neutrophils % 88.2 % (40.0-70.0) H 03/26/19 04:49 Seg Neuts % (Manual) 85.0 % (40.0-70.0) H 03/28/19 04:03 Band Neutrophils % 3.0 % 03/28/19 04:03 Lymphocytes % (Manual) 6.0 % (13.4-35.0) L 03/28/19 04:03 Reactive Lymphs % (Man) 0 % 03/28/19 04:03 Monocytes % (Manual) 5.0 % (0.0-7.3) 03/28/19 04:03 Eosinophils % (Manual) 1.0 % (0.0-4.3) 03/28/19 04:03 Basophils % (Manual) 0 % (0.0-1.8) 03/28/19 04:03 Metamyelocytes % 0 % 03/28/19 04:03 Myelocytes % 0 % 03/28/19 04:03 Promyelocytes % 0 % 03/28/19 04:03 Blast Cells % 0 % 03/28/19 04:03 Nucleated RBC % Not Reportable 03/28/19 04:03 Seg Neutrophils # 10.9 K/mm3 (1.8-7.7) H 03/26/19 04:49 Seg Neutrophils # Man 13.0 K/mm3 (1.8-7.7) H 03/28/19 04:03 Band Neutrophils # 0.5 K/mm3 03/28/19 04:03 Lymphocytes # (Manual) 0.9 K/mm3 (1.2-5.4) L 03/28/19 04:03 Abs React Lymphs (Man) 0.0 K/mm3 03/28/19 04:03 Monocytes # (Manual) 0.8 K/mm3 (0.0-0.8) 03/28/19 04:03 Eosinophils # (Manual) 0.2 K/mm3 (0.0-0.4) 03/28/19 04:03 Basophils # (Manual) 0.0 K/mm3 (0.0-0.1) 03/28/19 04:03 Metamyelocytes # 0.0 K/mm3 03/28/19 04:03 Myelocytes # 0.0 K/mm3 03/28/19 04:03 Promyelocytes # 0.0 K/mm3 03/28/19 04:03 Blast Cells # 0.0 K/mm3 03/28/19 04:03 Pathologist Review 03/18/19 14:17 WBC Morphology Not Reportable 03/28/19 04:03 Hypersegmented Neuts Not Reportable 03/28/19 04:03 Hyposegmented Neuts Not Reportable 03/28/19 04:03 Hypogranular Neuts Not Reportable 03/28/19 04:03 Smudge Cells Not Reportable 03/28/19 04:03 Toxic Granulation Not Reportable 03/28/19 04:03 Toxic Vacuolation Not Reportable 03/28/19 04:03 Dohle Bodies Not Reportable 03/28/19 04:03 Pelger-Huet Anomaly Not Reportable 03/28/19 04:03 Chelsi Rods Not Reportable 03/28/19 04:03 Platelet Estimate Consistent w auto 03/28/19 04:03 Clumped Platelets Not Reportable 03/28/19 04:03 Plt Clumps, EDTA Not Reportable 03/28/19 04:03 Large Platelets Not Reportable 03/28/19 04:03 Giant Platelets Not Reportable 03/28/19 04:03 Platelet Satelliting Not Reportable 03/28/19 04:03 Plt Morphology Comment Not Reportable 03/28/19 04:03 RBC Morphology Not Reportable 03/28/19 04:03 Dimorphic RBCs Not Reportable 03/28/19 04:03 Polychromasia Not Reportable 03/28/19 04:03 Hypochromasia Not Reportable 03/28/19 04:03 Poikilocytosis Not Reportable 03/28/19 04:03 Anisocytosis Not Reportable 03/28/19 04:03 Microcytosis Not Reportable 03/28/19 04:03 Macrocytosis Not Reportable 03/28/19 04:03 Spherocytes Not Reportable 03/28/19 04:03 Pappenheimer Bodies Not Reportable 03/28/19 04:03 Sickle Cells Not Reportable 03/28/19 04:03 Target Cells Not Reportable 03/28/19 04:03 Tear Drop Cells Not Reportable 03/28/19 04:03 Ovalocytes Not Reportable 03/28/19 04:03 Helmet Cells Not Reportable 03/28/19 04:03 [place] Bodies Not Reportable 03/28/19 04:03 Bassett Rings Not Reportable 03/28/19 04:03 Jose Cells Not Reportable 03/28/19 04:03 Bite Cells Not Reportable 03/28/19 04:03 Crenated Cell Not Reportable 03/28/19 04:03 Elliptocytes Rare 03/28/19 04:03 Acanthocytes (Spur) Not Reportable 03/28/19 04:03 Rouleaux Not Reportable 03/28/19 04:03 Hemoglobin C Crystals Not Reportable 03/28/19 04:03 Schistocytes Not Reportable 03/28/19 04:03 Malaria parasites Not Reportable 03/28/19 04:03 Sharif Bodies Not Reportable 03/28/19 04:03 Hem Pathologist Commnt No 03/28/19 04:03 PT 14.4 Sec. (12.2-14.9) 03/18/19 14:17 INR 1.11 (0.87-1.13) 03/18/19 14:17 APTT 33.5 Sec. (24.2-36.6) 03/18/19 14:17 Thrombin Time 14.7 Sec. (15.1-19.6) L 03/18/19 14:17 ABG pH 7.444 pH Units (7.350-7.450) 03/29/19 13:40 ABG pCO2 35.5 mm Hg 03/29/19 13:40 ABG pO2 86.0 mm Hg (80.0-90.0) 03/29/19 13:40 ABG HCO3 23.8 mmol/L (20.0-26.0) 03/29/19 13:40 ABG O2 Saturation 97.2 % (95.0-99.0) 03/29/19 13:40 ABG O2 Content 10.4 (0.0-44) 03/29/19 13:40 ABG Base Excess -0.2 mmol/L (-2.0-3.0) 03/29/19 13:40 ABG Hemoglobin 7.6 gm/dl (14.0-18.0) L 03/29/19 13:40 ABG Carboxyhemoglobin 1.6 % (0.0-5.0) 03/29/19 13:40 ABG Methemoglobin 0.5 % (0.0-1.5) 03/29/19 13:40 Oxyhemoglobin 95.1 % (95.0-99.0) 03/29/19 13:40 FiO2 25 % 03/29/19 13:40 Sodium 142 mmol/L (137-145) 03/30/19 05:54 Potassium 3.9 mmol/L (3.6-5.0) 03/30/19 05:54 Chloride 104.6 mmol/L (98-107) 03/30/19 05:54 Carbon Dioxide 22 mmol/L (22-30) 03/30/19 05:54 Anion Gap 19 mmol/L 03/30/19 05:54 BUN 28 mg/dL (9-20) H 03/30/19 05:54 Creatinine 1.4 mg/dL (0.8-1.5) 03/30/19 05:54 Estimated GFR 50 ml/min 03/30/19 05:54 BUN/Creatinine Ratio 20 % 03/30/19 05:54 Glucose 134 mg/dL (75-100) H 03/30/19 05:54 POC Glucose 124 (70-105) H 03/30/19 05:37 Lactic Acid 1.70 mmol/L (0.7-2.0) 03/18/19 23:41 Calcium 9.4 mg/dL (8.4-10.2) 03/30/19 05:54 Phosphorus 3.10 mg/dL (2.5-4.5) 03/25/19 04:23 Magnesium 1.90 mg/dL (1.7-2.3) 03/21/19 04:07 Total Bilirubin 0.30 mg/dL (0.1-1.2) 03/19/19 02:56 AST 30 units/L (5-40) 03/19/19 02:56 ALT 17 units/L (7-56) 03/19/19 02:56 Alkaline Phosphatase 100 units/L (35-129) 03/19/19 02:56 Total Creatine Kinase 396 units/L (55-170) H 03/20/19 05:26 Troponin T 0.214 ng/mL (0.00-0.029) H* 03/20/19 15:23 Total Protein 5.9 g/dL (6.3-8.2) L 03/19/19 02:56 Albumin 2.9 g/dL (3.9-5) L 03/19/19 02:56 Albumin/Globulin Ratio 1.0 % 03/19/19 02:56 Triglycerides 127 mg/dL (2-149) 03/18/19 14:17 Cholesterol 264 mg/dL (50-199) H 03/18/19 14:17 LDL Cholesterol Direct 182 mg/dL (50-130) H 03/18/19 14:17 HDL Cholesterol 58 mg/dL (40-59) 03/18/19 14:17 Cholesterol/HDL Ratio 4.55 % 03/18/19 14:17 Urine Color Yellow (Yellow) 03/18/19 Unknown Urine Turbidity Cloudy (Clear) 03/18/19 Unknown Urine pH 5.0 (5.0-7.0) 03/18/19 Unknown Ur Specific [place] 1.046 (1.003-1.030) H 03/18/19 Unknown Urine Protein 30 mg/dl mg/dL (Negative) 03/18/19 Unknown Urine Glucose (UA) 50 mg/dL (Negative) 03/18/19 Unknown Urine Ketones Neg mg/dL (Negative) 03/18/19 Unknown Urine Blood Lg (Negative) 03/18/19 Unknown Urine Nitrite Neg (Negative) 03/18/19 Unknown Urine Bilirubin Neg (Negative) 03/18/19 Unknown Urine Urobilinogen < 2.0 mg/dL (<2.0) 03/18/19 Unknown Ur Leukocyte Esterase Mod (Negative) 03/18/19 Unknown Urine WBC (Auto) 23.0 /HPF (0.0-6.0) H 03/18/19 Unknown Urine RBC (Auto) 6.0 /HPF (0.0-6.0) 03/18/19 Unknown U Epithel Cells (Auto) < 1.0 /HPF (0-13.0) 03/18/19 Unknown Urine Mucus Few /HPF 03/18/19 Unknown Urine Creatinine 142.9 mg/dL (0.1-20.0) H 03/19/19 01:38 Urine Sodium 14 mmol/L 03/19/19 01:38 CSF Appearance Clear 03/19/19 14:10 CSF Color Colorless 03/19/19 14:10 CSF WBC 97 /mm3 (1-10) 03/19/19 14:10 CSF RBC 720 /mm3 (0-0) 03/19/19 14:10 CSF Seg Neutrophils 94.0 % (0-6) 03/19/19 14:10 CSF Lymphocytes % 0 % (40-80) 03/19/19 14:10 CSF Reactive Lymphs 0 % 03/19/19 14:10 CSF Monocytes % 6.0 % (15-45) 03/19/19 14:10 CSF Eosinophils % 0 % 03/19/19 14:10 CSF Basophils 0 % 03/19/19 14:10 CSF Pathologist Review C 03/19/19 14:10 CSF Glucose 108 mg/dL 03/19/19 14:10 CSF Total Protein 66 mg/dL 03/19/19 14:10 CSF VDRL Nonreactive (Nonreactive) 03/19/19 14:10 Random Vancomycin 4.1 ug/mL (0-40.0) 03/22/19 04:47 C. difficile Tox (PCR) Positive (Negative) 03/26/19 21:20 Enterovirus (PCR) Cmmt See scanned results 03/19/19 14:10 HSV I DNA PCR See scanned results 03/19/19 14:10 HSV II DNA PCR See scanned results 03/19/19 14:10 VZV (Qnt-PCR) See scanned results 03/19/19 14:10 Active Medications - Current Medications Current Medications: Generic Name Dose Route Start Last Admin Trade Name Freq PRN Reason Stop Dose Admin Acetaminophen 650 mg 03/21/19 10:29 03/26/19 01:37 Tylenol PO 650 mg Q4H PRN Administration Pain MILD(1-3)/Fever >100.5/ROSA Lipase/Protease/Amylase 1 each 03/19/19 15:17 Pancreeliana Huggins 10,500 Unit FEEDTUBE PRN PRN For Clogged Feeding Tube Clonidine HCl 0.2 mg 03/22/19 12:00 03/29/19 11:07 Catapres-Tts Patch TD 0.2 mg Raymond MARTHA Administration Dextrose 0 ml 03/20/19 02:38 D50w (25gm) Syringe IV Q30MIN PRN Hypoglycemia Protocol Famotidine 20 mg 03/29/19 23:45 03/30/19 01:11 Pepcid IV 03/30/19 10:01 20 mg BID MARTHA Administration Glycopyrrolate 2 mg 03/28/19 20:00 03/30/19 00:34 Robinul PO Not Given TID MARTHA Heparin Sodium (Porcine) 5,000 unit 03/18/19 22:00 03/29/19 22:10 Heparin SUB-Q 5,000 unit Q12HR MARTHA Administration Hydralazine HCl 10 mg 03/22/19 02:51 03/26/19 00:38 Apresoline IV 10 mg Q4H PRN Administration Hypertension Hydrophilic Ointment 1 applic 03/21/19 17:45 Vaseline Lip Therapy TP Q2HR PRN Dry Lips Vancomycin HCl 1 gm in 250 mls @ 167.007 mls/hr 03/27/19 12:00 03/29/19 11:08 Vancomycin/Ns 1 Gm/250 Ml IV 167.007 mls/hr Q24H MARTHA Administration Levetiracetam 750 mg/ Dextrose 107.5 mls @ 400 mls/hr 03/29/19 23:48 03/30/19 01:11 IV 03/30/19 10:17 400 mls/hr Q12HR MARTHA Administration Insulin Human Lispro 0 unit 03/20/19 06:00 03/30/19 07:15 Humalog SUB-Q Not Given Q6HR [facility] Protocol Levalbuterol HCl 0.63 mg 03/26/19 01:20 Xopenex IH Q8HRT PRN Shortness Of Breath Multi-Ingred Cream/Lotion/Oil/Oint 1 applic 03/21/19 17:45 Artificial Tears Ophth Oint OU Q4HR PRN Dry Eye(s) Scopolamine 1 each 03/26/19 14:00 03/29/19 15:45 Transderm-Scop TD 1 each Q3D MARTHA Administration Simple Syrup 15 ml 03/19/19 15:17 Simple Syrup FEEDTUBE PRN PRN Hypoglycemia Simple Syrup 30 ml 03/19/19 15:17 Simple Syrup FEEDTUBE PRN PRN Hypoglycemia Sodium Bicarbonate 325 mg 03/19/19 15:17 Sodium Bicarbonate FEEDTUBE PRN PRN For Clogged Feeding Tube Sodium Chloride 10 ml 03/18/19 22:00 03/29/19 22:10 Sodium Chloride Flush Syringe 10 Ml IV 10 ml BID MARTHA Administration Sodium Chloride 10 ml 03/18/19 17:32 Sodium Chloride Flush Syringe 10 Ml IV PRN PRN LINE FLUSH Vancomycin HCl 125 mg 03/27/19 13:00 03/30/19 07:14 Vancomycin Po PO Not Given Q6HR MARTHA Nutrition/Malnutrition Assess - Dietary Evaluation Nutrition/Malnutrition Findings: Nutrition Notes Start: 03/19/19 15:12 Freq: Status: Active Protocol: Document 03/27/19 11:21 CW (Rec: 03/27/19 12:02 CW [id number]) Co-Sign 03/27/19 11:21 LP Nutrition Notes Initial or Follow up Reassessment Current Diagnosis Acute Kidney Injury,Diabetes, Sepsis,Respiratory Failure, Hyperlipidemia Other Pertinent Diagnosis dehydration, AMS, metabolic encephalopathy Current Diet Vital AF 1.2 at 60ml/hr Labs/Tests BG 182 BUN 38 Cr 1.9 Pertinent Medications Humalog Height 5 ft 4 in Weight 86.183 kg Superior Body Weight (kg) 59.09 BMI 32.5 Weight change and time frame no wt change noted Subjective/Other Information FU for TF tolerance and Na labs. Pt's Na levels have stabilized at 137. BUN and Cr are slowly increasing. Pt TF regimen to be changed to Glucerna 1.2. Percent of energy/protein needs met: 93%/92% Burn Absent Trauma Absent Current % PO Negligible Minimum of two criteria No physical signs of malnutrition #1 Nutrition Diagnosis Inadequate oral intake Diagnosis Progress(for reassessment Continues documentation) Is patient on ventilator? Yes Is Patient Ambulatory and/or Out of Bed No REE-([facility]-confined to bed) 1850.988 Kcal/Kg value to use for calculation 17 Approximate Energy Requirements Using 1465 kcal/Kg Calculation Used for Recommendations Kcal/kg Additional Notes Protein: >118g (>2g/kg IBW) Fluid :1ml/kcal Nutrition Intervention Change Diet Order: TF Nutrition Support: Change TF to Glucerna 1.2 at 55 ml/hr. Flush with 85 ml q4h Kcal 1,584 Protein (gm) 79 Fluid (mL) 1,063 Goal #1 Meet at least 80% of kcal and protein needs via TF Anticipated Discharge Needs: Unable to determine at this time Follow-Up By: 03/30/19 Additional Comments FU for TF tolerance, Na lab
[2019-03-30] MEDS: HEPARIN 5,000 UNIT/1 ML VIAL SUB-Q SCH ×2 (10:15→22:32)
--- NOTE | 2019-03-30 11:54 | Progress Note ---
Assessment and Plan 1. Acute kidney injury: Vasomotor CRISTÓBAL in the setting of sepsis. Renal US negative for hydro. Renal function is improving, Cr is 1.4 today. Continue IV fluids. Monitor renal function. Avoid nephrotoxic agents. Meds dosage based on GFR. 2. FEN: Anion gap metabolic acidosis, 2/2 Lactic acidosis, monitor. Hypernatremia, improved. Monitor lytes. 3. Sepsis. 4. Acute respiratory failure with hypoxia: Extubated. 5. Seizures: Seen by Neuro. 6. DM type 2. 7. Encephalopathy: Multifactorial. Examination: General appearance: well-developed, appears stated age, alert HEENT: ATNC, DALIA Neck: trachea midline Respiratory: Clear to Auscultation Heart: regular, S1S2, no murmur Gastrointestinal: soft, normoactive bowel sounds, not tenderness, not distended Integumentary: no rash, warm and dry Neurologic: alert, awake, generalized movements Musculoskeletal: no edema Subjective Date of service: 03/30/19 Principal diagnosis: Severe Sepsis; CRISTÓBAL; Ac hypoxemic resp failure; DM II; Seizures; AMS Interval history: Patient was seen and examined at the bedside. No family present at bedside. No acute events overnight. Patient is alert and looks at speaker when name is spoken. No verbal communication. Objective - Vital Signs Vital signs: Vital Signs - 12hr 03/30/19 03/30/19 03/30/19 00:00 01:00 02:00 Temperature Pulse Rate 100 H 106 H 91 H Pulse Rate [ 113 H From Monitor] Respiratory 26 H 26 H 25 H Rate Blood Pressure 145/70 144/80 137/72 O2 Sat by Pulse 96 98 100 Oximetry 03/30/19 03/30/19 03/30/19 03:00 03:28 04:00 Temperature 98.9 F Pulse Rate 88 87 Pulse Rate [ 82 From Monitor] Respiratory 22 21 Rate Blood Pressure 128/67 129/64 O2 Sat by Pulse 96 90 Oximetry 03/30/19 03/30/19 03/30/19 05:00 06:00 07:00 Temperature Pulse Rate 81 74 74 Pulse Rate [ From Monitor] Respiratory 18 17 18 Rate Blood Pressure 124/61 135/61 145/67 O2 Sat by Pulse 99 100 100 Oximetry 03/30/19 03/30/19 03/30/19 08:00 09:00 10:00 Temperature 97.8 F Pulse Rate 83 81 82 Pulse Rate [ From Monitor] Respiratory 23 22 21 Rate Blood Pressure 152/72 142/67 152/65 O2 Sat by Pulse 100 98 Oximetry - Lab 03/30/19 05:54 03/30/19 05:54 Most recent lab results ABG pH 7.444 pH Units (7.350-7.450) 03/29/19 13:40 ABG pCO2 35.5 mm Hg 03/29/19 13:40 ABG pO2 86.0 mm Hg (80.0-90.0) 03/29/19 13:40 ABG HCO3 23.8 mmol/L (20.0-26.0) 03/29/19 13:40 ABG O2 Saturation 97.2 % (95.0-99.0) 03/29/19 13:40 Calcium 9.4 mg/dL (8.4-10.2) 03/30/19 05:54 Phosphorus 3.10 mg/dL (2.5-4.5) 03/25/19 04:23 Magnesium 1.90 mg/dL (1.7-2.3) 03/21/19 04:07 Urine Creatinine 142.9 mg/dL (0.1-20.0) H 03/19/19 01:38 Urine Sodium 14 mmol/L 03/19/19 01:38 Medications & Allergies - Medications Allergies/Adverse Reactions: Allergies No Known Allergies Allergy (Verified 01/21/16 10:17) Home Medications: Home Medications Medication Instructions Recorded Confirmed Last Taken Type Acetaminophen [Acetaminophen TAB] 2 tab PO Q4H PRN #15 tablet 02/10/19 03/19/19 Unknown Rx Aspirin 325 mg PO QDAY #30 tablet 02/10/19 03/19/19 Unknown Rx Magnesium Hydroxide [Milk of 30 ml PO Q4H PRN #15 oral.liqd 02/10/19 03/19/19 Unknown Rx Magnesia] OLANzapine [ZyPREXA] 2.5 mg PO QDAY #30 tablet 02/10/19 03/19/19 Unknown Rx Pantoprazole [Protonix TAB] 20 mg PO QDAY #30 tablet. 02/10/19 03/19/19 Unknown Rx Active Medications: Generic Name Dose Route Start Last Admin Trade Name Freq PRN Reason Stop Dose Admin Acetaminophen 650 mg 03/21/19 10:29 03/26/19 01:37 Tylenol PO 650 mg Q4H PRN Administration Pain MILD(1-3)/Fever >100.5/ROSA Lipase/Protease/Amylase 1 each 03/19/19 15:17 Pancreeliana Huggins 10,500 Unit FEEDTUBE PRN PRN For Clogged Feeding Tube Clonidine HCl 0.2 mg 03/22/19 12:00 03/29/19 11:07 Catapres-Tts Patch TD 0.2 mg Raymond MARTHA Administration Dextrose 0 ml 03/20/19 02:38 D50w (25gm) Syringe IV Q30MIN PRN Hypoglycemia Protocol Glycopyrrolate 2 mg 03/28/19 20:00 03/30/19 10:16 Robinul PO Not Given TID MARTHA Heparin Sodium (Porcine) 5,000 unit 03/18/19 22:00 03/30/19 10:15 Heparin SUB-Q 5,000 unit Q12HR MARTHA Administration Hydralazine HCl 10 mg 03/22/19 02:51 03/26/19 00:38 Apresoline IV 10 mg Q4H PRN Administration Hypertension Hydrophilic Ointment 1 applic 03/21/19 17:45 Vaseline Lip Therapy TP Q2HR PRN Dry Lips Vancomycin HCl 1 gm in 250 mls @ 167.007 mls/hr 03/27/19 12:00 03/29/19 11:08 Vancomycin/Ns 1 Gm/250 Ml IV 167.007 mls/hr Q24H MARTHA Administration Insulin Human Lispro 0 unit 03/20/19 06:00 03/30/19 07:15 Humalog SUB-Q Not Given Q6HR [facility] Protocol Levalbuterol HCl 0.63 mg 03/26/19 01:20 Xopenex IH Q8HRT PRN Shortness Of Breath Multi-Ingred Cream/Lotion/Oil/Oint 1 applic 03/21/19 17:45 Artificial Tears Ophth Oint OU Q4HR PRN Dry Eye(s) Scopolamine 1 each 03/26/19 14:00 03/29/19 15:45 Transderm-Scop TD 1 each Q3D MARTHA Administration Simple Syrup 15 ml 03/19/19 15:17 Simple Syrup FEEDTUBE PRN PRN Hypoglycemia Simple Syrup 30 ml 03/19/19 15:17 Simple Syrup FEEDTUBE PRN PRN Hypoglycemia Sodium Bicarbonate 325 mg 03/19/19 15:17 Sodium Bicarbonate FEEDTUBE PRN PRN For Clogged Feeding Tube Sodium Chloride 10 ml 03/18/19 22:00 03/30/19 10:16 Sodium Chloride Flush Syringe 10 Ml IV 10 ml BID MARTHA Administration Sodium Chloride 10 ml 03/18/19 17:32 Sodium Chloride Flush Syringe 10 Ml IV PRN PRN LINE FLUSH Vancomycin HCl 125 mg 03/27/19 13:00 03/30/19 07:14 Vancomycin Po PO Not Given Q6HR MARTHA
--- NOTE | 2019-03-30 12:19 | Progress Note ---
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 - continue enteral nutrition for now - discontinue Robinul re: oropharyngeal dryness - prn BIPAP - continue Provigil - continue Lantus - continue scopolamine patch for secretion control - continue bronchodilators with pulmonary hygiene per RT - continue to wean supplemental oxygen for target O2 sat's > 90% acutely - wean per pulmonary driven protocols - continue empiric broad spectrum coverage per ID recommendations - enteral nutrition at goal rate as tolerated - neurology evaluation ongoing (AED's per neuro) - accuchecks with glycemic control per SSI (While critically ill target blood glucose of 140-180 mg/dL; avoid hypoglycemia) - prn analgesia per CPOT score - Maintenance of sleep-wake cycle, avoid delirium - G.I. & VTE prophylaxis - PT/OT/ROM exercises - continue mobility protocols for pressure ulcer prophylaxis - Monitor hemodynamics closely - continue other care per attending / other distributor sales consultant's .... re-evaluate in am & prn CONDITION: CRITICAL PROGNOSIS: GUARDED CODE STATUS: FULL CODE The high probability of a clinically significant, sudden or life-threatening deterioration of the [respiratory, cardiovascular & neurologic] system(s) required my full and direct attention, intervention and personal management. The aggregate critical care time was [34] minutes without overlap. Time includes spent on; [x] Data Review and interpretation [x] Patient assessment and monitoring of vital signs [x] Documentation [x] Medication orders and management Subjective Date of service: 03/30/19 Principal diagnosis: Severe Sepsis; CRISTÓBAL; Ac hypoxemic resp failure; DM II; Seizures; AMS Interval history: Patient is seen today for: Severe Sepsis; CRISTÓBAL; Acidosis; Acute hypoxemic respiratory failure; HLD; DM type 2; Acute onset seizure; Acute encephalopathy (Toxic/Met) Seen and examined at bedside; 24hour events reviewed; nursing and respiratory care staff consulted; no adverse overnight events reported to me; doing decently well post extubation; still encephalopathic / lethargic; hypotensive this morning; no emesis or overt aspiration Objective Vital Signs - 12hr 0203/30/19 03/30/19 01:00 02:00 03:00 Temperature Pulse Rate 106 H 91 H 88 Pulse Rate [ From Monitor] Respiratory 26 H 25 H 22 Rate Blood Pressure 144/80 137/72 128/67 O2 Sat by Pulse 98 100 96 Oximetry 03/30/19 03/30/19 03/30/19 03:28 04:00 05:00 Temperature 98.9 F Pulse Rate 87 81 Pulse Rate [ 82 From Monitor] Respiratory 21 18 Rate Blood Pressure 129/64 124/61 O2 Sat by Pulse 90 99 Oximetry 03/30/19 03/30/19 03/30/19 06:00 07:00 08:00 Temperature 97.8 F Pulse Rate 74 74 83 Pulse Rate [ From Monitor] Respiratory 17 18 23 Rate Blood Pressure 135/61 145/67 152/72 O2 Sat by Pulse 100 100 100 Oximetry 03/30/19 03/30/19 09:00 10:00 Temperature Pulse Rate 81 82 Pulse Rate [ From Monitor] Respiratory 22 21 Rate Blood Pressure 142/67 152/65 O2 Sat by Pulse 98 Oximetry Constitutional: no acute distress, other (elderly looking CM normocephalic with mildly increased respiratory effort on MVS) Eyes: non-icteric ENT: oropharynx dry, other (extubated\) Neck: supple, no lymphadenopathy, no JVD Effort: mildly labored Ascultation: Bilateral: diminished breath sounds, rhonchi (scant) Percussion: Bilateral: not dull Cardiovascular: regular rate and rhythm Gastrointestinal: normoactive bowel sounds, soft, non-tender, non-distended Integumentary: normal Extremities: no cyanosis, no edema, pink and warm, pulses normal Neurologic: non-focal exam (grossly), pupils equal and round, other (lethargic) Psychiatric: other (flat affect) CBC and BMP: 03/31/19 03:53 03/31/19 03:53 ABG, PT/INR, D-dimer: ABG ABG pH 7.444 pH Units (7.350-7.450) 03/29/19 13:40 ABG pCO2 35.5 mm Hg 03/29/19 13:40 ABG pO2 86.0 mm Hg (80.0-90.0) 03/29/19 13:40 ABG O2 Saturation 97.2 % (95.0-99.0) 03/29/19 13:40 PT/INR, D-dimer PT 14.4 Sec. (12.2-14.9) 03/18/19 14:17 INR 1.11 (0.87-1.13) 03/18/19 14:17 Abnormal lab findings: Abnormal Labs 03/18/19 03/18/19 03/18/19 14:17 14:17 14:17 WBC 38.1 H RBC Hgb Hct MCV 83 L MCH 27 L MCHC Plt Count 740 H Lymph % (Auto) Lymph # [place] # Seg Neutrophils % Seg Neuts % (Manual) 93.0 H Lymphocytes % (Manual) 2.5 L Monocytes % (Manual) Seg Neutrophils # Seg Neutrophils # Man 35.4 H Lymphocytes # (Manual) 1.0 L Monocytes # (Manual) 1.5 H Thrombin Time 14.7 L ABG pH ABG pO2 ABG O2 Saturation ABG Base Excess ABG Hemoglobin Sodium Potassium Chloride 94.9 L Carbon Dioxide 20 L BUN 34 H Creatinine 2.7 H Glucose 244 H POC Glucose Lactic Acid Calcium 10.6 H Phosphorus Total Creatine Kinase Troponin T 0.297 H* Total Protein Albumin Cholesterol 264 H LDL Cholesterol Direct 182 H Ur Specific [place] Urine WBC (Auto) Urine Creatinine 03/18/19 03/18/19 03/18/19 15:33 15:33 17:55 WBC RBC Hgb Hct MCV MCH MCHC Plt Count Lymph % (Auto) Lymph # [place] # Seg Neutrophils % Seg Neuts % (Manual) Lymphocytes % (Manual) Monocytes % (Manual) Seg Neutrophils # Seg Neutrophils # Man Lymphocytes # (Manual) Monocytes # (Manual) Thrombin Time ABG pH ABG pO2 ABG O2 Saturation ABG Base Excess ABG Hemoglobin Sodium Potassium Chloride Carbon Dioxide BUN Creatinine Glucose POC Glucose Lactic Acid 2.70 H* 3.00 H* Calcium Phosphorus Total Creatine Kinase 2896 H Troponin T Total Protein Albumin Cholesterol LDL Cholesterol Direct Ur Specific [place] Urine WBC (Auto) Urine Creatinine 03/18/19 03/18/19 03/18/19 20:22 Unknown Unknown WBC RBC Hgb Hct MCV MCH MCHC Plt Count Lymph % (Auto) Lymph # [place] # Seg Neutrophils % Seg Neuts % (Manual) Lymphocytes % (Manual) Monocytes % (Manual) Seg Neutrophils # Seg Neutrophils # Man Lymphocytes # (Manual) Monocytes # (Manual) Thrombin Time ABG pH ABG pO2 183.5 H ABG O2 Saturation 99.2 H ABG Base Excess ABG Hemoglobin 12.7 L Sodium Potassium Chloride Carbon Dioxide BUN Creatinine Glucose POC Glucose Lactic Acid 3.00 H* Calcium Phosphorus Total Creatine Kinase Troponin T Total Protein Albumin Cholesterol LDL Cholesterol Direct Ur Specific [place] 1.046 H Urine WBC (Auto) 23.0 H Urine Creatinine 03/19/19 03/19/19 03/19/19 01:38 02:56 02:56 WBC 25.4 H RBC Hgb 11.3 L Hct 34.1 L D MCV 83 L MCH 27 L MCHC Plt Count 496 H Lymph % (Auto) Lymph # [place] # Seg Neutrophils % Seg Neuts % (Manual) 90.0 H Lymphocytes % (Manual) 3.0 L Monocytes % (Manual) Seg Neutrophils # Seg Neutrophils # Man 22.9 H Lymphocytes # (Manual) 0.8 L Monocytes # (Manual) 1.8 H Thrombin Time ABG pH ABG pO2 ABG O2 Saturation ABG Base Excess ABG Hemoglobin Sodium Potassium Chloride Carbon Dioxide 20 L BUN 34 H Creatinine 2.5 H Glucose 208 H POC Glucose Lactic Acid Calcium Phosphorus Total Creatine Kinase Troponin T Total Protein 5.9 L Albumin 2.9 L Cholesterol LDL Cholesterol Direct Ur Specific [place] Urine WBC (Auto) Urine Creatinine 142.9 H 03/19/19 03/19/19 03/19/19 05:12 14:39 23:08 WBC RBC Hgb Hct MCV MCH MCHC Plt Count Lymph % (Auto) Lymph # [place] # Seg Neutrophils % Seg Neuts % (Manual) Lymphocytes % (Manual) Monocytes % (Manual) Seg Neutrophils # Seg Neutrophils # Man Lymphocytes # (Manual) Monocytes # (Manual) Thrombin Time ABG pH ABG pO2 201.8 H ABG O2 Saturation 99.3 H ABG Base Excess -2.8 L ABG Hemoglobin Sodium Potassium Chloride Carbon Dioxide BUN Creatinine Glucose POC Glucose 185 H Lactic Acid Calcium Phosphorus Total Creatine Kinase Troponin T 0.200 H* D Total Protein Albumin Cholesterol LDL Cholesterol Direct Ur Specific [place] Urine WBC (Auto) Urine Creatinine 03/20/19 03/20/19 03/20/19 00:12 03:44 05:19 WBC RBC Hgb Hct MCV MCH MCHC Plt Count Lymph % (Auto) Lymph # [place] # Seg Neutrophils % Seg Neuts % (Manual) Lymphocytes % (Manual) Monocytes % (Manual) Seg Neutrophils # Seg Neutrophils # Man Lymphocytes # (Manual) Monocytes # (Manual) Thrombin Time ABG pH ABG pO2 122.8 H ABG O2 Saturation ABG Base Excess -3.0 L ABG Hemoglobin 8.9 L Sodium Potassium Chloride Carbon Dioxide BUN Creatinine Glucose POC Glucose 193 H 202 H Lactic Acid Calcium Phosphorus Total Creatine Kinase Troponin T Total Protein Albumin Cholesterol LDL Cholesterol Direct Ur Specific [place] Urine WBC (Auto) Urine Creatinine 03/20/19 03/20/19 03/20/19 05:26 05:26 05:26 WBC 19.5 H RBC Hgb 10.8 L Hct 33.0 L MCV 82 L MCH 27 L MCHC Plt Count Lymph % (Auto) 5.4 L Lymph # 1.1 L [place] # 1.4 H Seg Neutrophils % 86.8 H Seg Neuts % (Manual) Lymphocytes % (Manual) Monocytes % (Manual) Seg Neutrophils # 16.9 H Seg Neutrophils # Man Lymphocytes # (Manual) Monocytes # (Manual) Thrombin Time ABG pH ABG pO2 ABG O2 Saturation ABG Base Excess ABG Hemoglobin Sodium Potassium Chloride 110.5 H Carbon Dioxide 17 L BUN 41 H Creatinine 2.6 H Glucose 199 H POC Glucose Lactic Acid Calcium Phosphorus Total Creatine Kinase 396 H Troponin T 0.191 H* Total Protein Albumin Cholesterol LDL Cholesterol Direct Ur Specific [place] Urine WBC (Auto) Urine Creatinine 03/20/19 03/20/19 03/20/19 11:33 15:23 18:28 WBC RBC Hgb Hct MCV MCH MCHC Plt Count Lymph % (Auto) Lymph # [place] # Seg Neutrophils % Seg Neuts % (Manual) Lymphocytes % (Manual) Monocytes % (Manual) Seg Neutrophils # Seg Neutrophils # Man Lymphocytes # (Manual) Monocytes # (Manual) Thrombin Time ABG pH ABG pO2 ABG O2 Saturation ABG Base Excess ABG Hemoglobin Sodium Potassium Chloride Carbon Dioxide BUN Creatinine Glucose POC Glucose 196 H 190 H Lactic Acid Calcium Phosphorus Total Creatine Kinase Troponin T 0.214 H* Total Protein Albumin Cholesterol LDL Cholesterol Direct Ur Specific [place] Urine WBC (Auto) Urine Creatinine 03/20/19 03/21/19 03/21/19 23:14 03:29 04:07 WBC RBC Hgb Hct MCV MCH MCHC Plt Count Lymph % (Auto) Lymph # [place] # Seg Neutrophils % Seg Neuts % (Manual) Lymphocytes % (Manual) Monocytes % (Manual) Seg Neutrophils # Seg Neutrophils # Man Lymphocytes # (Manual) Monocytes # (Manual) Thrombin Time ABG pH 7.483 H ABG pO2 97.5 H ABG O2 Saturation ABG Base Excess ABG Hemoglobin 8.5 L Sodium 146 H Potassium 3.1 L D Chloride 109.8 H Carbon Dioxide BUN 35 H Creatinine 1.9 H Glucose 200 H POC Glucose 190 H Lactic Acid Calcium Phosphorus 1.80 L Total Creatine Kinase Troponin T Total Protein Albumin Cholesterol LDL Cholesterol Direct Ur Specific [place] Urine WBC (Auto) Urine Creatinine 03/21/19 03/21/19 03/21/19 05:22 11:52 18:06 WBC RBC Hgb Hct MCV MCH MCHC Plt Count Lymph % (Auto) Lymph # [place] # Seg Neutrophils % Seg Neuts % (Manual) Lymphocytes % (Manual) Monocytes % (Manual) Seg Neutrophils # Seg Neutrophils # Man Lymphocytes # (Manual) Monocytes # (Manual) Thrombin Time ABG pH ABG pO2 ABG O2 Saturation ABG Base Excess ABG Hemoglobin Sodium Potassium Chloride Carbon Dioxide BUN Creatinine Glucose POC Glucose 189 H 236 H 164 H Lactic Acid Calcium Phosphorus Total Creatine Kinase Troponin T Total Protein Albumin Cholesterol LDL Cholesterol Direct Ur Specific [place] Urine WBC (Auto) Urine Creatinine 03/21/19 03/22/19 03/22/19 23:36 04:47 04:47 WBC RBC 3.62 L Hgb 10.1 L Hct 29.9 L MCV 83 L MCH MCHC Plt Count Lymph % (Auto) Lymph # [place] # Seg Neutrophils % Seg Neuts % (Manual) 83.0 H Lymphocytes % (Manual) 8.0 L Monocytes % (Manual) 8.0 H Seg Neutrophils # Seg Neutrophils # Man 8.8 H Lymphocytes # (Manual) 0.8 L Monocytes # (Manual) Thrombin Time ABG pH ABG pO2 ABG O2 Saturation ABG Base Excess ABG Hemoglobin Sodium Potassium Chloride 107.8 H Carbon Dioxide 19 L BUN 28 H Creatinine 1.6 H Glucose 198 H POC Glucose 211 H Lactic Acid Calcium Phosphorus 2.40 L D Total Creatine Kinase Troponin T Total Protein Albumin Cholesterol LDL Cholesterol Direct Ur Specific [place] Urine WBC (Auto) Urine Creatinine 03/22/19 03/22/19 03/22/19 05:20 05:29 10:10 WBC RBC Hgb Hct MCV MCH MCHC Plt Count Lymph % (Auto) Lymph # [place] # Seg Neutrophils % Seg Neuts % (Manual) Lymphocytes % (Manual) Monocytes % (Manual) Seg Neutrophils # Seg Neutrophils # Man Lymphocytes # (Manual) Monocytes # (Manual) Thrombin Time ABG pH 7.481 H 7.483 H ABG pO2 74.6 L 79.4 L ABG O2 Saturation ABG Base Excess ABG Hemoglobin 9.7 L 9.2 L Sodium Potassium Chloride Carbon Dioxide BUN Creatinine Glucose POC Glucose 202 H Lactic Acid Calcium Phosphorus Total Creatine Kinase Troponin T Total Protein Albumin Cholesterol LDL Cholesterol Direct Ur Specific [place] Urine WBC (Auto) Urine Creatinine 03/22/19 03/22/19 03/22/19 12:29 17:34 23:16 WBC RBC Hgb Hct MCV MCH MCHC Plt Count Lymph % (Auto) Lymph # [place] # Seg Neutrophils % Seg Neuts % (Manual) Lymphocytes % (Manual) Monocytes % (Manual) Seg Neutrophils # Seg Neutrophils # Man Lymphocytes # (Manual) Monocytes # (Manual) Thrombin Time ABG pH ABG pO2 ABG O2 Saturation ABG Base Excess ABG Hemoglobin Sodium Potassium Chloride Carbon Dioxide BUN Creatinine Glucose POC Glucose 234 H 225 H 205 H Lactic Acid Calcium Phosphorus Total Creatine Kinase Troponin T Total Protein Albumin Cholesterol LDL Cholesterol Direct Ur Specific [place] Urine WBC (Auto) Urine Creatinine 03/23/19 03/23/19 03/23/19 03:27 03:50 04:17 WBC RBC Hgb Hct MCV MCH MCHC Plt Count Lymph % (Auto) Lymph # [place] # Seg Neutrophils % Seg Neuts % (Manual) Lymphocytes % (Manual) Monocytes % (Manual) Seg Neutrophils # Seg Neutrophils # Man Lymphocytes # (Manual) Monocytes # (Manual) Thrombin Time ABG pH 7.486 H ABG pO2 75.2 L ABG O2 Saturation ABG Base Excess ABG Hemoglobin 9.6 L Sodium Potassium Chloride Carbon Dioxide BUN Creatinine Glucose POC Glucose 113 H 173 H Lactic Acid Calcium Phosphorus Total Creatine Kinase Troponin T Total Protein Albumin Cholesterol LDL Cholesterol Direct Ur Specific [place] Urine WBC (Auto) Urine Creatinine 03/23/19 03/23/19 03/23/19 05:12 12:32 18:20 WBC RBC Hgb Hct MCV MCH MCHC Plt Count Lymph % (Auto) Lymph # [place] # Seg Neutrophils % Seg Neuts % (Manual) Lymphocytes % (Manual) Monocytes % (Manual) Seg Neutrophils # Seg Neutrophils # Man Lymphocytes # (Manual) Monocytes # (Manual) Thrombin Time ABG pH ABG pO2 ABG O2 Saturation ABG Base Excess ABG Hemoglobin Sodium Potassium Chloride 107.3 H Carbon Dioxide 21 L BUN 27 H Creatinine 1.6 H Glucose 166 H POC Glucose 212 H 190 H Lactic Acid Calcium Phosphorus Total Creatine Kinase Troponin T Total Protein Albumin Cholesterol LDL Cholesterol Direct Ur Specific [place] Urine WBC (Auto) Urine Creatinine 03/23/19 03/24/19 03/24/19 23:40 05:15 05:24 WBC RBC Hgb Hct MCV MCH MCHC Plt Count Lymph % (Auto) Lymph # [place] # Seg Neutrophils % Seg Neuts % (Manual) Lymphocytes % (Manual) Monocytes % (Manual) Seg Neutrophils # Seg Neutrophils # Man Lymphocytes # (Manual) Monocytes # (Manual) Thrombin Time ABG pH ABG pO2 ABG O2 Saturation ABG Base Excess ABG Hemoglobin Sodium Potassium Chloride Carbon Dioxide 21 L BUN 28 H Creatinine Glucose 139 H POC Glucose 172 H 128 H Lactic Acid Calcium Phosphorus Total Creatine Kinase Troponin T Total Protein Albumin Cholesterol LDL Cholesterol Direct Ur Specific [place] Urine WBC (Auto) Urine Creatinine 03/24/19 03/24/19 03/24/19 12:21 17:16 23:27 WBC RBC Hgb Hct MCV MCH MCHC Plt Count Lymph % (Auto) Lymph # [place] # Seg Neutrophils % Seg Neuts % (Manual) Lymphocytes % (Manual) Monocytes % (Manual) Seg Neutrophils # Seg Neutrophils # Man Lymphocytes # (Manual) Monocytes # (Manual) Thrombin Time ABG pH ABG pO2 ABG O2 Saturation ABG Base Excess ABG Hemoglobin Sodium Potassium Chloride Carbon Dioxide BUN Creatinine Glucose POC Glucose 213 H 200 H 189 H Lactic Acid Calcium Phosphorus Total Creatine Kinase Troponin T Total Protein Albumin Cholesterol LDL Cholesterol Direct Ur Specific [place] Urine WBC (Auto) Urine Creatinine 03/25/19 03/25/19 03/25/19 01:57 04:23 05:24 WBC RBC Hgb Hct MCV MCH MCHC Plt Count Lymph % (Auto) Lymph # [place] # Seg Neutrophils % Seg Neuts % (Manual) Lymphocytes % (Manual) Monocytes % (Manual) Seg Neutrophils # Seg Neutrophils # Man Lymphocytes # (Manual) Monocytes # (Manual) Thrombin Time ABG pH 7.470 H ABG pO2 73.5 L ABG O2 Saturation ABG Base Excess ABG Hemoglobin 7.5 L Sodium 134 L Potassium Chloride Carbon Dioxide 21 L BUN 28 H Creatinine Glucose 179 H POC Glucose 198 H Lactic Acid Calcium 8.3 L Phosphorus Total Creatine Kinase Troponin T Total Protein Albumin Cholesterol LDL Cholesterol Direct Ur Specific [place] Urine WBC (Auto) Urine Creatinine 03/25/19 03/25/19 03/25/19 12:23 17:31 23:59 WBC RBC Hgb Hct MCV MCH MCHC Plt Count Lymph % (Auto) Lymph # [place] # Seg Neutrophils % Seg Neuts % (Manual) Lymphocytes % (Manual) Monocytes % (Manual) Seg Neutrophils # Seg Neutrophils # Man Lymphocytes # (Manual) Monocytes # (Manual) Thrombin Time ABG pH ABG pO2 ABG O2 Saturation ABG Base Excess ABG Hemoglobin Sodium Potassium Chloride Carbon Dioxide BUN Creatinine Glucose POC Glucose 184 H 181 H 198 H Lactic Acid Calcium Phosphorus Total Creatine Kinase Troponin T Total Protein Albumin Cholesterol LDL Cholesterol Direct Ur Specific [place] Urine WBC (Auto) Urine Creatinine 03/26/19 03/26/19 03/26/19 04:49 04:49 05:44 WBC 12.4 H RBC 3.47 L Hgb 9.6 L Hct 28.6 L MCV 82 L MCH MCHC Plt Count Lymph % (Auto) 6.3 L Lymph # 0.8 L [place] # Seg Neutrophils % 88.2 H Seg Neuts % (Manual) Lymphocytes % (Manual) Monocytes % (Manual) Seg Neutrophils # 10.9 H Seg Neutrophils # Man Lymphocytes # (Manual) Monocytes # (Manual) Thrombin Time ABG pH ABG pO2 ABG O2 Saturation ABG Base Excess ABG Hemoglobin Sodium 132 L Potassium Chloride 96.8 L Carbon Dioxide 21 L BUN 29 H Creatinine Glucose 225 H POC Glucose 219 H Lactic Acid Calcium Phosphorus Total Creatine Kinase Troponin T Total Protein Albumin Cholesterol LDL Cholesterol Direct Ur Specific [place] Urine WBC (Auto) Urine Creatinine 03/26/19 03/26/19 03/26/19 12:40 18:27 23:25 WBC RBC Hgb Hct MCV MCH MCHC Plt Count Lymph % (Auto) Lymph # [place] # Seg Neutrophils % Seg Neuts % (Manual) Lymphocytes % (Manual) Monocytes % (Manual) Seg Neutrophils # Seg Neutrophils # Man Lymphocytes # (Manual) Monocytes # (Manual) Thrombin Time ABG pH ABG pO2 ABG O2 Saturation ABG Base Excess ABG Hemoglobin Sodium Potassium Chloride Carbon Dioxide BUN Creatinine Glucose POC Glucose 236 H 216 H 227 H Lactic Acid Calcium Phosphorus Total Creatine Kinase Troponin T Total Protein Albumin Cholesterol LDL Cholesterol Direct Ur Specific [place] Urine WBC (Auto) Urine Creatinine 03/27/19 03/27/19 03/27/19 04:42 05:27 12:04 WBC RBC Hgb Hct MCV MCH MCHC Plt Count Lymph % (Auto) Lymph # [place] # Seg Neutrophils % Seg Neuts % (Manual) Lymphocytes % (Manual) Monocytes % (Manual) Seg Neutrophils # Seg Neutrophils # Man Lymphocytes # (Manual) Monocytes # (Manual) Thrombin Time ABG pH ABG pO2 ABG O2 Saturation ABG Base Excess ABG Hemoglobin Sodium Potassium Chloride Carbon Dioxide BUN 38 H Creatinine 1.9 H Glucose 182 H POC Glucose 188 H 226 H Lactic Acid Calcium Phosphorus Total Creatine Kinase Troponin T Total Protein Albumin Cholesterol LDL Cholesterol Direct Ur Specific [place] Urine WBC (Auto) Urine Creatinine 03/27/19 03/27/19 03/27/19 14:50 19:07 23:57 WBC RBC Hgb Hct MCV MCH MCHC Plt Count Lymph % (Auto) Lymph # [place] # Seg Neutrophils % Seg Neuts % (Manual) Lymphocytes % (Manual) Monocytes % (Manual) Seg Neutrophils # Seg Neutrophils # Man Lymphocytes # (Manual) Monocytes # (Manual) Thrombin Time ABG pH ABG pO2 108.8 H ABG O2 Saturation ABG Base Excess -3.1 L ABG Hemoglobin Sodium Potassium Chloride Carbon Dioxide BUN Creatinine Glucose POC Glucose 196 H 208 H Lactic Acid Calcium Phosphorus Total Creatine Kinase Troponin T Total Protein Albumin Cholesterol LDL Cholesterol Direct Ur Specific [place] Urine WBC (Auto) Urine Creatinine 03/28/19 03/28/19 03/28/19 04:03 04:03 05:37 WBC 15.3 H RBC 2.93 L Hgb 8.1 L Hct 24.1 L MCV 82 L MCH MCHC Plt Count Lymph % (Auto) Lymph # [place] # Seg Neutrophils % Seg Neuts % (Manual) 85.0 H Lymphocytes % (Manual) 6.0 L Monocytes % (Manual) Seg Neutrophils # Seg Neutrophils # Man 13.0 H Lymphocytes # (Manual) 0.9 L Monocytes # (Manual) Thrombin Time ABG pH ABG pO2 ABG O2 Saturation ABG Base Excess ABG Hemoglobin Sodium 136 L Potassium Chloride Carbon Dioxide 21 L BUN 36 H Creatinine 1.8 H Glucose 163 H POC Glucose 157 H Lactic Acid Calcium Phosphorus Total Creatine Kinase Troponin T Total Protein Albumin Cholesterol LDL Cholesterol Direct Ur Specific [place] Urine WBC (Auto) Urine Creatinine 03/28/19 03/28/19 03/29/19 12:22 18:15 00:18 WBC RBC Hgb Hct MCV MCH MCHC Plt Count Lymph % (Auto) Lymph # [place] # Seg Neutrophils % Seg Neuts % (Manual) Lymphocytes % (Manual) Monocytes % (Manual) Seg Neutrophils # Seg Neutrophils # Man Lymphocytes # (Manual) Monocytes # (Manual) Thrombin Time ABG pH ABG pO2 ABG O2 Saturation ABG Base Excess ABG Hemoglobin Sodium Potassium Chloride Carbon Dioxide BUN Creatinine Glucose POC Glucose 207 H 170 H 193 H Lactic Acid Calcium Phosphorus Total Creatine Kinase Troponin T Total Protein Albumin Cholesterol LDL Cholesterol Direct Ur Specific [place] Urine WBC (Auto) Urine Creatinine 03/29/19 03/29/19 03/29/19 05:49 06:17 06:17 WBC 11.2 H RBC 2.87 L Hgb 7.8 L Hct 23.5 L MCV 82 L MCH 27 L MCHC Plt Count Lymph % (Auto) Lymph # [place] # Seg Neutrophils % Seg Neuts % (Manual) Lymphocytes % (Manual) Monocytes % (Manual) Seg Neutrophils # Seg Neutrophils # Man Lymphocytes # (Manual) Monocytes # (Manual) Thrombin Time ABG pH ABG pO2 ABG O2 Saturation ABG Base Excess ABG Hemoglobin Sodium Potassium Chloride Carbon Dioxide BUN 30 H Creatinine Glucose 149 H POC Glucose 110 H Lactic Acid Calcium Phosphorus Total Creatine Kinase Troponin T Total Protein Albumin Cholesterol LDL Cholesterol Direct Ur Specific [place] Urine WBC (Auto) Urine Creatinine 03/29/19 03/29/19 03/29/19 12:36 13:40 17:42 WBC RBC Hgb Hct MCV MCH MCHC Plt Count Lymph % (Auto) Lymph # [place] # Seg Neutrophils % Seg Neuts % (Manual) Lymphocytes % (Manual) Monocytes % (Manual) Seg Neutrophils # Seg Neutrophils # Man Lymphocytes # (Manual) Monocytes # (Manual) Thrombin Time ABG pH ABG pO2 ABG O2 Saturation ABG Base Excess ABG Hemoglobin 7.6 L Sodium Potassium Chloride Carbon Dioxide BUN Creatinine Glucose POC Glucose 164 H 168 H Lactic Acid Calcium Phosphorus Total Creatine Kinase Troponin T Total Protein Albumin Cholesterol LDL Cholesterol Direct Ur Specific [place] Urine WBC (Auto) Urine Creatinine 03/29/19 03/30/19 03/30/19 23:42 05:37 05:54 WBC RBC Hgb Hct MCV MCH MCHC Plt Count Lymph % (Auto) Lymph # [place] # Seg Neutrophils % Seg Neuts % (Manual) Lymphocytes % (Manual) Monocytes % (Manual) Seg Neutrophils # Seg Neutrophils # Man Lymphocytes # (Manual) Monocytes # (Manual) Thrombin Time ABG pH ABG pO2 ABG O2 Saturation ABG Base Excess ABG Hemoglobin Sodium Potassium Chloride Carbon Dioxide BUN 28 H Creatinine Glucose 134 H POC Glucose 115 H 124 H Lactic Acid Calcium Phosphorus Total Creatine Kinase Troponin T Total Protein Albumin Cholesterol LDL Cholesterol Direct Ur Specific [place] Urine WBC (Auto) Urine Creatinine 03/30/19 05:54 WBC RBC 2.80 L Hgb 8.0 L Hct 23.0 L MCV 82 L MCH MCHC 35 H Plt Count Lymph % (Auto) Lymph # [place] # Seg Neutrophils % Seg Neuts % (Manual) Lymphocytes % (Manual) Monocytes % (Manual) Seg Neutrophils # Seg Neutrophils # Man Lymphocytes # (Manual) Monocytes # (Manual) Thrombin Time ABG pH ABG pO2 ABG O2 Saturation ABG Base Excess ABG Hemoglobin Sodium Potassium Chloride Carbon Dioxide BUN Creatinine Glucose POC Glucose Lactic Acid Calcium Phosphorus Total Creatine Kinase Troponin T Total Protein Albumin Cholesterol LDL Cholesterol Direct Ur Specific [place] Urine WBC (Auto) Urine Creatinine Chest x-ray: other (none today) Allied health notes reviewed: nursing
[2019-03-30] MEDS: VANCOMYCIN/NS 1 GM/250 ML 1 GM/250 ML BAG IV SCH (13:15)
[2019-03-30] MEDS ORDERED: SODIUM CHLORIDE 0.9% 1000 ML 500 ML IV ONE (15:15)
--- NOTE | 2019-03-30 15:57 | Progress Note ---
Assessment and Plan Cultures: 03/18/2019 blood culture: No growth 03/18/2019 urine culture: Staph aureus - MSSA (10K-100K) CSF culture: no growth thus far CSF HSV 1,2, VZV and Enterovirus PCRs: negative A/P: 68-year-old male with a past medical history of hypertension, diabetes, obesity admitted after being found down. #New fever, ?from C.difficile infection: patient with diarrhea. Treat with PO Vancomycin #New GPC bacteremia: / bottles, follow up final results. Continue IV Vancomycin for now. #Initial SIRS/sepsis with acute encephalopathy: Possible aseptic meningitis v/s encephalitis v/s reactive from seizures, likely latter. #?Meningoencephalitis: CSF with mild pleocytosis, not consistent with acute bacterial meningitis. MRI brain without contrast was unremarkable for acute etiology. CSF HSV 1,2, VZV and Enterovirus PCRs: negative. CSF pleocytosis was probably post-ictal in etiology. #CRISTÓBAL: renally dose antibiotics as appropriate, creatinine improving. #MSSA in urine: Not a common uropathogen. Blood cultures are negative, so bact eremic spillover/renal seeding less likely. TTE images of poor quality. Could also be a skin contaminant. Completed empiric course of abx. Recommendations: - PO Vancomycin 125 mg QID started x 10 days. Stop date: 04/06/2019 - stopped IV vanco given contaminant in blood cultures Thank you for the consult, we will sign off. Please call with consults. John Can MD [facility] ([facility]) M: [phone] O: [phone] F: [phone] Subjective Date of service: 03/30/19 Principal diagnosis: Severe Sepsis; CRISTÓBAL; Ac hypoxemic resp failure; DM II; Sei zures; AMS Interval history: Afebrile, white count 11. Now extubated over weekend. Objective - Exam Narrative Exam: Constitutional: Extubated, awake Head, Ears, Nose: Normocephalic, atraumatic. External ears, nose normal Cardiovascular: S1, S2 normal. Respiratory: Good air entry, clear to auscultation bilaterally GI: Soft, non-tender; bowel sounds normal. No peritoneal signs. Musculoskeletal: No pedal edema, no cyanosis. Skin: No rash or abscess Hem/Lymphatic: No palpable cervical or supraclavicular nodes. No lymphangitis Neurological: No deficits. - Constitutional Vitals: Vital Signs Temp Pulse Resp BP Pulse Ox 96.0 F L 67 12 123/54 98 03/30/19 12:00 03/30/19 15:00 03/30/19 15:00 03/30/19 15:00 03/30/19 15:00 Temperature -Last 24 Hours Temperature 96.0 F Temperature 97.8 F Temperature 97.8 F Temperature 98.9 F Temperature 98.8 F Temperature 99.2 F Temperature 99.2 F - Labs CBC & Chem 7: 03/30/19 05:54 03/30/19 05:54 Labs: Abnormal lab results 03/29/19 03/29/19 03/30/19 Range/Units 17:42 23:42 05:37 RBC (3.65-5.03) M/mm3 Hgb (11.8-15.2) gm/dl Hct (35.5-45.6) % MCV (84-94) fl MCHC (32-34) % BUN (9-20) mg/dL Glucose (75-100) mg/dL POC Glucose 168 H 115 H 124 H (70-105) 03/30/19 03/30/19 Range/Units 05:54 05:54 RBC 2.80 L (3.65-5.03) M/mm3 Hgb 8.0 L (11.8-15.2) gm/dl Hct 23.0 L (35.5-45.6) % MCV 82 L (84-94) fl MCHC 35 H (32-34) % BUN 28 H (9-20) mg/dL Glucose 134 H (75-100) mg/dL POC Glucose (70-105)
[2019-03-30] MEDS: SODIUM CHLORIDE 0.9% 1000 ML 1,000 ML IV SCH (16:25)
[2019-03-31] MEDS: INSULIN LISPRO 100 UNIT/ML SUB-Q SCH ×3 (00:20→13:27)
[2019-03-31] MEDS: VANCOMYCIN 250 MG/10 ML ORAL LIQD PO SCH ×3 (00:20→12:00)
[2019-03-31] MEDS: SODIUM CHLORIDE 0.9% 1000 ML 1,000 ML IV SCH (02:55)
[2019-03-31 04:40] LABS: Hematocrit 26.8 % (35.5-45.6); Hemoglobin 8.8 gm/dl (11.8-15.2); Mean Corpuscular HGB Conc 33 % (32-34); Mean Corpuscular Volume 83 fl (84-94); Platelet Count 506 K/mm3 (140-440); Red Blood Count 3.24 M/mm3 (3.65-5.03); Red Cell Distribution Width 14.2 % (13.2-15.2)
[2019-03-31 05:08] LABS: Calcium 9.2 mg/dL (8.4-10.2)
--- NOTE | 2019-03-31 07:18 | Progress Note ---
Assessment and Plan 1. Acute kidney injury: Vasomotor CRISTÓBAL in the setting of sepsis. Renal US negative for hydro. Renal function is improving, Cr is 1.3 from 1.4 today. Continue IV fluids. Monitor renal function. Avoid nephrotoxic agents. Meds dosage based on GFR. 2. FEN: Anion gap metabolic acidosis, 2/2 Lactic acidosis, monitor. Hypernatremia, improved. Monitor lytes. 3. Sepsis. 4. Acute respiratory failure with hypoxia: Extubated. 5. Seizures: Seen by Neuro. 6. DM type 2. 7. Encephalopathy: Multifactorial. Examination: General appearance: well-developed, appears stated age, alert HEENT: ATNC, DALIA Neck: trachea midline Respiratory: Clear to Auscultation Heart: regular, S1S2, no murmur Gastrointestinal: soft, normoactive bowel sounds, not tenderness, not distended Integumentary: no rash, warm and dry Neurologic: alert, awake, generalized movements Musculoskeletal: no edema Subjective Date of service: 03/31/19 Principal diagnosis: Severe Sepsis; CRISTÓBAL; Ac hypoxemic resp failure; DM II; Seizures; AMS Interval history: Patient was seen and examined at the bedside. No family present at bedside. No acute events overnight. Patient is alert. No verbal communication. Objective - Vital Signs Vital signs: Vital Signs - 12hr 03/30/19 03/30/19 03/30/19 20:00 21:00 22:00 Temperature 97.2 F L Pulse Rate 77 92 H 86 Pulse Rate [ 76 From Monitor] Respiratory 17 19 19 Rate Blood Pressure 157/77 150/78 150/78 O2 Sat by Pulse 97 100 100 Oximetry 03/30/19 03/30/19 03/30/19 22:38 23:00 23:15 Temperature 98.8 F Pulse Rate 95 H 92 H Pulse Rate [ From Monitor] Respiratory 20 22 Rate Blood Pressure 148/74 145/73 O2 Sat by Pulse 100 100 Oximetry 03/31/19 03/31/19 03/31/19 00:00 01:00 02:00 Temperature Pulse Rate 87 97 H 91 H Pulse Rate [ 85 From Monitor] Respiratory 18 20 20 Rate Blood Pressure 167/89 157/84 157/84 O2 Sat by Pulse 100 98 100 Oximetry 03/31/19 03/31/19 03/31/19 03:00 03:24 04:00 Temperature 98.9 F Pulse Rate 84 85 Pulse Rate [ 85 From Monitor] Respiratory 17 18 Rate Blood Pressure 136/69 136/69 O2 Sat by Pulse 98 99 Oximetry 03/31/19 03/31/19 05:00 06:00 Temperature Pulse Rate 85 103 H Pulse Rate [ From Monitor] Respiratory 17 29 H Rate Blood Pressure 142/76 173/102 O2 Sat by Pulse 100 99 Oximetry - Lab 03/31/19 03:53 03/31/19 03:53 Most recent lab results ABG pH 7.444 pH Units (7.350-7.450) 03/29/19 13:40 ABG pCO2 35.5 mm Hg 03/29/19 13:40 ABG pO2 86.0 mm Hg (80.0-90.0) 03/29/19 13:40 ABG HCO3 23.8 mmol/L (20.0-26.0) 03/29/19 13:40 ABG O2 Saturation 97.2 % (95.0-99.0) 03/29/19 13:40 Calcium 9.2 mg/dL (8.4-10.2) 03/31/19 03:53 Phosphorus 3.10 mg/dL (2.5-4.5) 03/25/19 04:23 Magnesium 1.90 mg/dL (1.7-2.3) 03/21/19 04:07 Urine Creatinine 142.9 mg/dL (0.1-20.0) H 03/19/19 01:38 Urine Sodium 14 mmol/L 03/19/19 01:38 Medications & Allergies - Medications Allergies/Adverse Reactions: Allergies No Known Allergies Allergy (Verified 01/21/16 10:17) Home Medications: Home Medications Medication Instructions Recorded Confirmed Last Taken Type Acetaminophen [Acetaminophen TAB] 2 tab PO Q4H PRN #15 tablet 02/10/19 03/19/19 Unknown Rx Aspirin 325 mg PO QDAY #30 tablet 02/10/19 03/19/19 Unknown Rx Magnesium Hydroxide [Milk of 30 ml PO Q4H PRN #15 oral.liqd 02/10/19 03/19/19 Unknown Rx Magnesia] OLANzapine [ZyPREXA] 2.5 mg PO QDAY #30 tablet 02/10/19 03/19/19 Unknown Rx Pantoprazole [Protonix TAB] 20 mg PO QDAY #30 tablet. 02/10/19 03/19/19 Unknown Rx Active Medications: Generic Name Dose Route Start Last Admin Trade Name Freq PRN Reason Stop Dose Admin Acetaminophen 650 mg 03/21/19 10:29 03/26/19 01:37 Tylenol PO 650 mg Q4H PRN Administration Pain MILD(1-3)/Fever >100.5/ROSA Lipase/Protease/Amylase 1 each 03/19/19 15:17 Pancreaze 10,500 Unit FEEDTUBE PRN PRN For Clogged Feeding Tube Clonidine HCl 0.2 mg 03/22/19 12:00 03/29/19 11:07 Catapres-Tts Patch TD 0.2 mg Raymond MARTHA Administration Dextrose 0 ml 03/20/19 02:38 D50w (25gm) Syringe IV Q30MIN PRN Hypoglycemia Protocol Heparin Sodium (Porcine) 5,000 unit 03/18/19 22:00 03/30/19 22:32 Heparin SUB-Q 5,000 unit Q12HR MARTHA Administration Hydralazine HCl 10 mg 03/22/19 02:51 03/26/19 00:38 Apresoline IV 10 mg Q4H PRN Administration Hypertension Hydrophilic Ointment 1 applic 03/21/19 17:45 Vaseline Lip Therapy TP Q2HR PRN Dry Lips Sodium Chloride 1,000 mls @ 100 mls/hr 03/30/19 15:15 03/31/19 02:55 Nacl 0.9% 1000 Ml IV 04/01/19 01:14 100 mls/hr DIRECT MARTHA Administration Insulin Human Lispro 0 unit 03/20/19 06:00 03/31/19 06:05 Humalog SUB-Q Not Given Q6HR [facility] Protocol Levalbuterol HCl 0.63 mg 03/26/19 01:20 Xopenex IH Q8HRT PRN Shortness Of Breath Multi-Ingred Cream/Lotion/Oil/Oint 1 applic 03/21/19 17:45 Artificial Tears Ophth Oint OU Q4HR PRN Dry Eye(s) Scopolamine 1 each 03/26/19 14:00 03/29/19 15:45 Transderm-Scop TD 1 each Q3D MARTHA Administration Simple Syrup 15 ml 03/19/19 15:17 Simple Syrup FEEDTUBE PRN PRN Hypoglycemia Simple Syrup 30 ml 03/19/19 15:17 Simple Syrup FEEDTUBE PRN PRN Hypoglycemia Sodium Bicarbonate 325 mg 03/19/19 15:17 Sodium Bicarbonate FEEDTUBE PRN PRN For Clogged Feeding Tube Sodium Chloride 10 ml 03/18/19 22:00 03/30/19 22:32 Sodium Chloride Flush Syringe 10 Ml IV 10 ml BID MARTHA Administration Sodium Chloride 10 ml 03/18/19 17:32 Sodium Chloride Flush Syringe 10 Ml IV PRN PRN LINE FLUSH Vancomycin HCl 125 mg 03/27/19 13:00 03/31/19 06:06 Vancomycin Po PO 04/06/19 23:59 Not Given Q6HR MARTHA
[2019-03-31 11:41] VITALS: BP 159/65
[2019-03-31] MEDS: HEPARIN 5,000 UNIT/1 ML VIAL SUB-Q SCH (11:50)
--- NOTE | 2019-03-31 12:04 | Progress Note ---
Assessment and Plan Severe Sepsis CRISTÓBAL Acidosis Acute respiratory failure with hypoxia HLD (hyperlipidemia) DM type 2 Acute onset seizure Acute encephalopathy (Toxic/Met) Hypophosphatemia - continue OUTSIDE PHYSICAL DAMAGE APPRAISER evaluation - continue enteral nutrition for now - discontinued Davis re: oropharyngeal dryness - prn BIPAP - continue Provigil - continue Lantus - continue scopolamine patch for secretion control - continue bronchodilators with pulmonary hygiene per RT - continue to wean supplemental oxygen for target O2 sat's > 90% acutely - wean per pulmonary driven protocols - continue empiric broad spectrum coverage per ID recommendations - enteral nutrition at goal rate as tolerated - neurology evaluation ongoing (AED's per neuro) - accuchecks with glycemic control per SSI (While critically ill target blood glucose of 140-180 mg/dL; avoid hypoglycemia) - prn analgesia per CPOT score - Maintenance of sleep-wake cycle, avoid delirium - G.I. & VTE prophylaxis - PT/OT/ROM exercises - continue mobility protocols for pressure ulcer prophylaxis - Monitor hemodynamics closely - continue other care per attending / other customer sales consultant's .... re-evaluate in am & prn .... tentative LTAC transfer CONDITION: FAIR PROGNOSIS: GUARDED CODE STATUS: FULL CODE Subjective Date of service: 03/31/19 Principal diagnosis: Severe Sepsis; CRISTÓBAL; Ac hypoxemic resp failure; DM II; Seizures; AMS Interval history: Patient is seen today for: Severe Sepsis; CRISTÓBAL; Acidosis; Acute hypoxemic respira tory failure; HLD; DM type 2; Acute onset seizure; Acute encephalopathy (Toxic/Met) Seen and examined at bedside; 24hour events reviewed; nursing and respiratory care staff consulted; no adverse overnight events reported to me; resting peacefully in bed; doing better; no hypotensive episodes overmight; still with AMS Objective Vital Signs - 12hr 03/31/19 03/31/19 03/31/19 01:00 02:00 03:00 Temperature Pulse Rate 97 H 91 H 84 Pulse Rate [ From Monitor] Respiratory 20 20 17 Rate Blood Pressure 157/84 157/84 136/69 O2 Sat by Pulse 98 100 98 Oximetry 03/31/19 03/31/19 03/31/19 03:24 04:00 05:00 Temperature 98.9 F Pulse Rate 85 85 Pulse Rate [ 85 From Monitor] Respiratory 18 17 Rate Blood Pressure 136/69 142/76 O2 Sat by Pulse 99 100 Oximetry 03/31/19 03/31/19 03/31/19 06:00 07:00 08:00 Temperature 98.0 F Pulse Rate 103 H 82 77 Pulse Rate [ From Monitor] Respiratory 29 H 14 16 Rate Blood Pressure 173/102 152/59 148/73 O2 Sat by Pulse 99 98 100 Oximetry 03/31/19 03/31/19 03/31/19 09:00 09:21 10:00 Temperature Pulse Rate 70 68 Pulse Rate [ From Monitor] Respiratory 17 14 Rate Blood Pressure 139/63 133/65 O2 Sat by Pulse 99 100 100 Oximetry 03/31/19 11:00 Temperature Pulse Rate 75 Pulse Rate [ From Monitor] Respiratory 15 Rate Blood Pressure 159/65 O2 Sat by Pulse 97 Oximetry Constitutional: no acute distress, other (elderly looking CM normocephalic with mildly increased respiratory effort on MVS) Eyes: non-icteric ENT: oropharynx dry, other (extubated) Neck: supple, no lymphadenopathy, no JVD Effort: mildly labored Ascultation: Bilateral: diminished breath sounds, rhonchi (scant) Percussion: Bilateral: not dull Cardiovascular: regular rate and rhythm Gastrointestinal: normoactive bowel sounds, soft, non-tender, non-distended Integumentary: normal Extremities: no cyanosis, no edema, pink and warm, pulses normal Neurologic: non-focal exam (grossly), pupils equal and round, other (lethargic) Psychiatric: other (flat affect) CBC and BMP: 03/31/19 03:53 03/31/19 03:53 ABG, PT/INR, D-dimer: ABG ABG pH 7.444 pH Units (7.350-7.450) 03/29/19 13:40 ABG pCO2 35.5 mm Hg 03/29/19 13:40 ABG pO2 86.0 mm Hg (80.0-90.0) 03/29/19 13:40 ABG O2 Saturation 97.2 % (95.0-99.0) 03/29/19 13:40 PT/INR, D-dimer PT 14.4 Sec. (12.2-14.9) 03/18/19 14:17 INR 1.11 (0.87-1.13) 03/18/19 14:17 Abnormal lab findings: Abnormal Labs 0103/18/19 03/18/19 14:17 14:17 14:17 WBC 38.1 H RBC Hgb Hct MCV 83 L MCH 27 L MCHC Plt Count 740 H Lymph % (Auto) Lymph # [place] # Seg Neutrophils % Seg Neuts % (Manual) 93.0 H Lymphocytes % (Manual) 2.5 L Monocytes % (Manual) Seg Neutrophils # Seg Neutrophils # Man 35.4 H Lymphocytes # (Manual) 1.0 L Monocytes # (Manual) 1.5 H Thrombin Time 14.7 L ABG pH ABG pO2 ABG O2 Saturation ABG Base Excess ABG Hemoglobin Sodium Potassium Chloride 94.9 L Carbon Dioxide 20 L BUN 34 H Creatinine 2.7 H Glucose 244 H POC Glucose Lactic Acid Calcium 10.6 H Phosphorus Total Creatine Kinase Troponin T 0.297 H* Total Protein Albumin Cholesterol 264 H LDL Cholesterol Direct 182 H Ur Specific [place] Urine WBC (Auto) Urine Creatinine 03/18/19 03/18/19 03/18/19 15:33 15:33 17:55 WBC RBC Hgb Hct MCV MCH MCHC Plt Count Lymph % (Auto) Lymph # [place] # Seg Neutrophils % Seg Neuts % (Manual) Lymphocytes % (Manual) Monocytes % (Manual) Seg Neutrophils # Seg Neutrophils # Man Lymphocytes # (Manual) Monocytes # (Manual) Thrombin Time ABG pH ABG pO2 ABG O2 Saturation ABG Base Excess ABG Hemoglobin Sodium Potassium Chloride Carbon Dioxide BUN Creatinine Glucose POC Glucose Lactic Acid 2.70 H* 3.00 H* Calcium Phosphorus Total Creatine Kinase 2896 H Troponin T Total Protein Albumin Cholesterol LDL Cholesterol Direct Ur Specific [place] Urine WBC (Auto) Urine Creatinine 03/18/19 03/18/19 03/18/19 20:22 Unknown Unknown WBC RBC Hgb Hct MCV MCH MCHC Plt Count Lymph % (Auto) Lymph # [place] # Seg Neutrophils % Seg Neuts % (Manual) Lymphocytes % (Manual) Monocytes % (Manual) Seg Neutrophils # Seg Neutrophils # Man Lymphocytes # (Manual) Monocytes # (Manual) Thrombin Time ABG pH ABG pO2 183.5 H ABG O2 Saturation 99.2 H ABG Base Excess ABG Hemoglobin 12.7 L Sodium Potassium Chloride Carbon Dioxide BUN Creatinine Glucose POC Glucose Lactic Acid 3.00 H* Calcium Phosphorus Total Creatine Kinase Troponin T Total Protein Albumin Cholesterol LDL Cholesterol Direct Ur Specific [place] 1.046 H Urine WBC (Auto) 23.0 H Urine Creatinine 03/19/19 03/19/19 03/19/19 01:38 02:56 02:56 WBC 25.4 H RBC Hgb 11.3 L Hct 34.1 L D MCV 83 L MCH 27 L MCHC Plt Count 496 H Lymph % (Auto) Lymph # [place] # Seg Neutrophils % Seg Neuts % (Manual) 90.0 H Lymphocytes % (Manual) 3.0 L Monocytes % (Manual) Seg Neutrophils # Seg Neutrophils # Man 22.9 H Lymphocytes # (Manual) 0.8 L Monocytes # (Manual) 1.8 H Thrombin Time ABG pH ABG pO2 ABG O2 Saturation ABG Base Excess ABG Hemoglobin Sodium Potassium Chloride Carbon Dioxide 20 L BUN 34 H Creatinine 2.5 H Glucose 208 H POC Glucose Lactic Acid Calcium Phosphorus Total Creatine Kinase Troponin T Total Protein 5.9 L Albumin 2.9 L Cholesterol LDL Cholesterol Direct Ur Specific [place] Urine WBC (Auto) Urine Creatinine 142.9 H 03/19/19 03/19/19 03/19/19 05:12 14:39 23:08 WBC RBC Hgb Hct MCV MCH MCHC Plt Count Lymph % (Auto) Lymph # [place] # Seg Neutrophils % Seg Neuts % (Manual) Lymphocytes % (Manual) Monocytes % (Manual) Seg Neutrophils # Seg Neutrophils # Man Lymphocytes # (Manual) Monocytes # (Manual) Thrombin Time ABG pH ABG pO2 201.8 H ABG O2 Saturation 99.3 H ABG Base Excess -2.8 L ABG Hemoglobin Sodium Potassium Chloride Carbon Dioxide BUN Creatinine Glucose POC Glucose 185 H Lactic Acid Calcium Phosphorus Total Creatine Kinase Troponin T 0.200 H* D Total Protein Albumin Cholesterol LDL Cholesterol Direct Ur Specific [place] Urine WBC (Auto) Urine Creatinine 03/20/19 03/20/19 03/20/19 00:12 03:44 05:19 WBC RBC Hgb Hct MCV MCH MCHC Plt Count Lymph % (Auto) Lymph # [place] # Seg Neutrophils % Seg Neuts % (Manual) Lymphocytes % (Manual) Monocytes % (Manual) Seg Neutrophils # Seg Neutrophils # Man Lymphocytes # (Manual) Monocytes # (Manual) Thrombin Time ABG pH ABG pO2 122.8 H ABG O2 Saturation ABG Base Excess -3.0 L ABG Hemoglobin 8.9 L Sodium Potassium Chloride Carbon Dioxide BUN Creatinine Glucose POC Glucose 193 H 202 H Lactic Acid Calcium Phosphorus Total Creatine Kinase Troponin T Total Protein Albumin Cholesterol LDL Cholesterol Direct Ur Specific [place] Urine WBC (Auto) Urine Creatinine 03/20/19 03/20/19 03/20/19 05:26 05:26 05:26 WBC 19.5 H RBC Hgb 10.8 L Hct 33.0 L MCV 82 L MCH 27 L MCHC Plt Count Lymph % (Auto) 5.4 L Lymph # 1.1 L [place] # 1.4 H Seg Neutrophils % 86.8 H Seg Neuts % (Manual) Lymphocytes % (Manual) Monocytes % (Manual) Seg Neutrophils # 16.9 H Seg Neutrophils # Man Lymphocytes # (Manual) Monocytes # (Manual) Thrombin Time ABG pH ABG pO2 ABG O2 Saturation ABG Base Excess ABG Hemoglobin Sodium Potassium Chloride 110.5 H Carbon Dioxide 17 L BUN 41 H Creatinine 2.6 H Glucose 199 H POC Glucose Lactic Acid Calcium Phosphorus Total Creatine Kinase 396 H Troponin T 0.191 H* Total Protein Albumin Cholesterol LDL Cholesterol Direct Ur Specific [place] Urine WBC (Auto) Urine Creatinine 03/20/19 03/20/19 03/20/19 11:33 15:23 18:28 WBC RBC Hgb Hct MCV MCH MCHC Plt Count Lymph % (Auto) Lymph # [place] # Seg Neutrophils % Seg Neuts % (Manual) Lymphocytes % (Manual) Monocytes % (Manual) Seg Neutrophils # Seg Neutrophils # Man Lymphocytes # (Manual) Monocytes # (Manual) Thrombin Time ABG pH ABG pO2 ABG O2 Saturation ABG Base Excess ABG Hemoglobin Sodium Potassium Chloride Carbon Dioxide BUN Creatinine Glucose POC Glucose 196 H 190 H Lactic Acid Calcium Phosphorus Total Creatine Kinase Troponin T 0.214 H* Total Protein Albumin Cholesterol LDL Cholesterol Direct Ur Specific [place] Urine WBC (Auto) Urine Creatinine 03/20/19 03/21/19 03/21/19 23:14 03:29 04:07 WBC RBC Hgb Hct MCV MCH MCHC Plt Count Lymph % (Auto) Lymph # [place] # Seg Neutrophils % Seg Neuts % (Manual) Lymphocytes % (Manual) Monocytes % (Manual) Seg Neutrophils # Seg Neutrophils # Man Lymphocytes # (Manual) Monocytes # (Manual) Thrombin Time ABG pH 7.483 H ABG pO2 97.5 H ABG O2 Saturation ABG Base Excess ABG Hemoglobin 8.5 L Sodium 146 H Potassium 3.1 L D Chloride 109.8 H Carbon Dioxide BUN 35 H Creatinine 1.9 H Glucose 200 H POC Glucose 190 H Lactic Acid Calcium Phosphorus 1.80 L Total Creatine Kinase Troponin T Total Protein Albumin Cholesterol LDL Cholesterol Direct Ur Specific [place] Urine WBC (Auto) Urine Creatinine 03/21/19 03/21/19 03/21/19 05:22 11:52 18:06 WBC RBC Hgb Hct MCV MCH MCHC Plt Count Lymph % (Auto) Lymph # [place] # Seg Neutrophils % Seg Neuts % (Manual) Lymphocytes % (Manual) Monocytes % (Manual) Seg Neutrophils # Seg Neutrophils # Man Lymphocytes # (Manual) Monocytes # (Manual) Thrombin Time ABG pH ABG pO2 ABG O2 Saturation ABG Base Excess ABG Hemoglobin Sodium Potassium Chloride Carbon Dioxide BUN Creatinine Glucose POC Glucose 189 H 236 H 164 H Lactic Acid Calcium Phosphorus Total Creatine Kinase Troponin T Total Protein Albumin Cholesterol LDL Cholesterol Direct Ur Specific [place] Urine WBC (Auto) Urine Creatinine 03/21/19 03/22/19 03/22/19 23:36 04:47 04:47 WBC RBC 3.62 L Hgb 10.1 L Hct 29.9 L MCV 83 L MCH MCHC Plt Count Lymph % (Auto) Lymph # [place] # Seg Neutrophils % Seg Neuts % (Manual) 83.0 H Lymphocytes % (Manual) 8.0 L Monocytes % (Manual) 8.0 H Seg Neutrophils # Seg Neutrophils # Man 8.8 H Lymphocytes # (Manual) 0.8 L Monocytes # (Manual) Thrombin Time ABG pH ABG pO2 ABG O2 Saturation ABG Base Excess ABG Hemoglobin Sodium Potassium Chloride 107.8 H Carbon Dioxide 19 L BUN 28 H Creatinine 1.6 H Glucose 198 H POC Glucose 211 H Lactic Acid Calcium Phosphorus 2.40 L D Total Creatine Kinase Troponin T Total Protein Albumin Cholesterol LDL Cholesterol Direct Ur Specific [place] Urine WBC (Auto) Urine Creatinine 03/22/19 03/22/19 03/22/19 05:20 05:29 10:10 WBC RBC Hgb Hct MCV MCH MCHC Plt Count Lymph % (Auto) Lymph # [place] # Seg Neutrophils % Seg Neuts % (Manual) Lymphocytes % (Manual) Monocytes % (Manual) Seg Neutrophils # Seg Neutrophils # Man Lymphocytes # (Manual) Monocytes # (Manual) Thrombin Time ABG pH 7.481 H 7.483 H ABG pO2 74.6 L 79.4 L ABG O2 Saturation ABG Base Excess ABG Hemoglobin 9.7 L 9.2 L Sodium Potassium Chloride Carbon Dioxide BUN Creatinine Glucose POC Glucose 202 H Lactic Acid Calcium Phosphorus Total Creatine Kinase Troponin T Total Protein Albumin Cholesterol LDL Cholesterol Direct Ur Specific [place] Urine WBC (Auto) Urine Creatinine 03/22/19 03/22/19 03/22/19 12:29 17:34 23:16 WBC RBC Hgb Hct MCV MCH MCHC Plt Count Lymph % (Auto) Lymph # [place] # Seg Neutrophils % Seg Neuts % (Manual) Lymphocytes % (Manual) Monocytes % (Manual) Seg Neutrophils # Seg Neutrophils # Man Lymphocytes # (Manual) Monocytes # (Manual) Thrombin Time ABG pH ABG pO2 ABG O2 Saturation ABG Base Excess ABG Hemoglobin Sodium Potassium Chloride Carbon Dioxide BUN Creatinine Glucose POC Glucose 234 H 225 H 205 H Lactic Acid Calcium Phosphorus Total Creatine Kinase Troponin T Total Protein Albumin Cholesterol LDL Cholesterol Direct Ur Specific [place] Urine WBC (Auto) Urine Creatinine 03/23/19 03/23/19 03/23/19 03:27 03:50 04:17 WBC RBC Hgb Hct MCV MCH MCHC Plt Count Lymph % (Auto) Lymph # [place] # Seg Neutrophils % Seg Neuts % (Manual) Lymphocytes % (Manual) Monocytes % (Manual) Seg Neutrophils # Seg Neutrophils # Man Lymphocytes # (Manual) Monocytes # (Manual) Thrombin Time ABG pH 7.486 H ABG pO2 75.2 L ABG O2 Saturation ABG Base Excess ABG Hemoglobin 9.6 L Sodium Potassium Chloride Carbon Dioxide BUN Creatinine Glucose POC Glucose 113 H 173 H Lactic Acid Calcium Phosphorus Total Creatine Kinase Troponin T Total Protein Albumin Cholesterol LDL Cholesterol Direct Ur Specific [place] Urine WBC (Auto) Urine Creatinine 03/23/19 03/23/19 03/23/19 05:12 12:32 18:20 WBC RBC Hgb Hct MCV MCH MCHC Plt Count Lymph % (Auto) Lymph # [place] # Seg Neutrophils % Seg Neuts % (Manual) Lymphocytes % (Manual) Monocytes % (Manual) Seg Neutrophils # Seg Neutrophils # Man Lymphocytes # (Manual) Monocytes # (Manual) Thrombin Time ABG pH ABG pO2 ABG O2 Saturation ABG Base Excess ABG Hemoglobin Sodium Potassium Chloride 107.3 H Carbon Dioxide 21 L BUN 27 H Creatinine 1.6 H Glucose 166 H POC Glucose 212 H 190 H Lactic Acid Calcium Phosphorus Total Creatine Kinase Troponin T Total Protein Albumin Cholesterol LDL Cholesterol Direct Ur Specific [place] Urine WBC (Auto) Urine Creatinine 03/23/19 03/24/19 03/24/19 23:40 05:15 05:24 WBC RBC Hgb Hct MCV MCH MCHC Plt Count Lymph % (Auto) Lymph # [place] # Seg Neutrophils % Seg Neuts % (Manual) Lymphocytes % (Manual) Monocytes % (Manual) Seg Neutrophils # Seg Neutrophils # Man Lymphocytes # (Manual) Monocytes # (Manual) Thrombin Time ABG pH ABG pO2 ABG O2 Saturation ABG Base Excess ABG Hemoglobin Sodium Potassium Chloride Carbon Dioxide 21 L BUN 28 H Creatinine Glucose 139 H POC Glucose 172 H 128 H Lactic Acid Calcium Phosphorus Total Creatine Kinase Troponin T Total Protein Albumin Cholesterol LDL Cholesterol Direct Ur Specific [place] Urine WBC (Auto) Urine Creatinine 03/24/19 03/24/19 03/24/19 12:21 17:16 23:27 WBC RBC Hgb Hct MCV MCH MCHC Plt Count Lymph % (Auto) Lymph # [place] # Seg Neutrophils % Seg Neuts % (Manual) Lymphocytes % (Manual) Monocytes % (Manual) Seg Neutrophils # Seg Neutrophils # Man Lymphocytes # (Manual) Monocytes # (Manual) Thrombin Time ABG pH ABG pO2 ABG O2 Saturation ABG Base Excess ABG Hemoglobin Sodium Potassium Chloride Carbon Dioxide BUN Creatinine Glucose POC Glucose 213 H 200 H 189 H Lactic Acid Calcium Phosphorus Total Creatine Kinase Troponin T Total Protein Albumin Cholesterol LDL Cholesterol Direct Ur Specific [place] Urine WBC (Auto) Urine Creatinine 03/25/19 03/25/19 03/25/19 01:57 04:23 05:24 WBC RBC Hgb Hct MCV MCH MCHC Plt Count Lymph % (Auto) Lymph # [place] # Seg Neutrophils % Seg Neuts % (Manual) Lymphocytes % (Manual) Monocytes % (Manual) Seg Neutrophils # Seg Neutrophils # Man Lymphocytes # (Manual) Monocytes # (Manual) Thrombin Time ABG pH 7.470 H ABG pO2 73.5 L ABG O2 Saturation ABG Base Excess ABG Hemoglobin 7.5 L Sodium 134 L Potassium Chloride Carbon Dioxide 21 L BUN 28 H Creatinine Glucose 179 H POC Glucose 198 H Lactic Acid Calcium 8.3 L Phosphorus Total Creatine Kinase Troponin T Total Protein Albumin Cholesterol LDL Cholesterol Direct Ur Specific [place] Urine WBC (Auto) Urine Creatinine 03/25/19 03/25/19 03/25/19 12:23 17:31 23:59 WBC RBC Hgb Hct MCV MCH MCHC Plt Count Lymph % (Auto) Lymph # [place] # Seg Neutrophils % Seg Neuts % (Manual) Lymphocytes % (Manual) Monocytes % (Manual) Seg Neutrophils # Seg Neutrophils # Man Lymphocytes # (Manual) Monocytes # (Manual) Thrombin Time ABG pH ABG pO2 ABG O2 Saturation ABG Base Excess ABG Hemoglobin Sodium Potassium Chloride Carbon Dioxide BUN Creatinine Glucose POC Glucose 184 H 181 H 198 H Lactic Acid Calcium Phosphorus Total Creatine Kinase Troponin T Total Protein Albumin Cholesterol LDL Cholesterol Direct Ur Specific [place] Urine WBC (Auto) Urine Creatinine 03/26/19 03/26/19 03/26/19 04:49 04:49 05:44 WBC 12.4 H RBC 3.47 L Hgb 9.6 L Hct 28.6 L MCV 82 L MCH MCHC Plt Count Lymph % (Auto) 6.3 L Lymph # 0.8 L [place] # Seg Neutrophils % 88.2 H Seg Neuts % (Manual) Lymphocytes % (Manual) Monocytes % (Manual) Seg Neutrophils # 10.9 H Seg Neutrophils # Man Lymphocytes # (Manual) Monocytes # (Manual) Thrombin Time ABG pH ABG pO2 ABG O2 Saturation ABG Base Excess ABG Hemoglobin Sodium 132 L Potassium Chloride 96.8 L Carbon Dioxide 21 L BUN 29 H Creatinine Glucose 225 H POC Glucose 219 H Lactic Acid Calcium Phosphorus Total Creatine Kinase Troponin T Total Protein Albumin Cholesterol LDL Cholesterol Direct Ur Specific [place] Urine WBC (Auto) Urine Creatinine 03/26/19 03/26/19 03/26/19 12:40 18:27 23:25 WBC RBC Hgb Hct MCV MCH MCHC Plt Count Lymph % (Auto) Lymph # [place] # Seg Neutrophils % Seg Neuts % (Manual) Lymphocytes % (Manual) Monocytes % (Manual) Seg Neutrophils # Seg Neutrophils # Man Lymphocytes # (Manual) Monocytes # (Manual) Thrombin Time ABG pH ABG pO2 ABG O2 Saturation ABG Base Excess ABG Hemoglobin Sodium Potassium Chloride Carbon Dioxide BUN Creatinine Glucose POC Glucose 236 H 216 H 227 H Lactic Acid Calcium Phosphorus Total Creatine Kinase Troponin T Total Protein Albumin Cholesterol LDL Cholesterol Direct Ur Specific [place] Urine WBC (Auto) Urine Creatinine 03/27/19 03/27/19 03/27/19 04:42 05:27 12:04 WBC RBC Hgb Hct MCV MCH MCHC Plt Count Lymph % (Auto) Lymph # [place] # Seg Neutrophils % Seg Neuts % (Manual) Lymphocytes % (Manual) Monocytes % (Manual) Seg Neutrophils # Seg Neutrophils # Man Lymphocytes # (Manual) Monocytes # (Manual) Thrombin Time ABG pH ABG pO2 ABG O2 Saturation ABG Base Excess ABG Hemoglobin Sodium Potassium Chloride Carbon Dioxide BUN 38 H Creatinine 1.9 H Glucose 182 H POC Glucose 188 H 226 H Lactic Acid Calcium Phosphorus Total Creatine Kinase Troponin T Total Protein Albumin Cholesterol LDL Cholesterol Direct Ur Specific [place] Urine WBC (Auto) Urine Creatinine 03/27/19 03/27/19 03/27/19 14:50 19:07 23:57 WBC RBC Hgb Hct MCV MCH MCHC Plt Count Lymph % (Auto) Lymph # [place] # Seg Neutrophils % Seg Neuts % (Manual) Lymphocytes % (Manual) Monocytes % (Manual) Seg Neutrophils # Seg Neutrophils # Man Lymphocytes # (Manual) Monocytes # (Manual) Thrombin Time ABG pH ABG pO2 108.8 H ABG O2 Saturation ABG Base Excess -3.1 L ABG Hemoglobin Sodium Potassium Chloride Carbon Dioxide BUN Creatinine Glucose POC Glucose 196 H 208 H Lactic Acid Calcium Phosphorus Total Creatine Kinase Troponin T Total Protein Albumin Cholesterol LDL Cholesterol Direct Ur Specific [place] Urine WBC (Auto) Urine Creatinine 03/28/19 03/28/19 03/28/19 04:03 04:03 05:37 WBC 15.3 H RBC 2.93 L Hgb 8.1 L Hct 24.1 L MCV 82 L MCH MCHC Plt Count Lymph % (Auto) Lymph # [place] # Seg Neutrophils % Seg Neuts % (Manual) 85.0 H Lymphocytes % (Manual) 6.0 L Monocytes % (Manual) Seg Neutrophils # Seg Neutrophils # Man 13.0 H Lymphocytes # (Manual) 0.9 L Monocytes # (Manual) Thrombin Time ABG pH ABG pO2 ABG O2 Saturation ABG Base Excess ABG Hemoglobin Sodium 136 L Potassium Chloride Carbon Dioxide 21 L BUN 36 H Creatinine 1.8 H Glucose 163 H POC Glucose 157 H Lactic Acid Calcium Phosphorus Total Creatine Kinase Troponin T Total Protein Albumin Cholesterol LDL Cholesterol Direct Ur Specific [place] Urine WBC (Auto) Urine Creatinine 03/28/19 03/28/19 03/29/19 12:22 18:15 00:18 WBC RBC Hgb Hct MCV MCH MCHC Plt Count Lymph % (Auto) Lymph # [place] # Seg Neutrophils % Seg Neuts % (Manual) Lymphocytes % (Manual) Monocytes % (Manual) Seg Neutrophils # Seg Neutrophils # Man Lymphocytes # (Manual) Monocytes # (Manual) Thrombin Time ABG pH ABG pO2 ABG O2 Saturation ABG Base Excess ABG Hemoglobin Sodium Potassium Chloride Carbon Dioxide BUN Creatinine Glucose POC Glucose 207 H 170 H 193 H Lactic Acid Calcium Phosphorus Total Creatine Kinase Troponin T Total Protein Albumin Cholesterol LDL Cholesterol Direct Ur Specific [place] Urine WBC (Auto) Urine Creatinine 03/29/19 03/29/19 03/29/19 05:49 06:17 06:17 WBC 11.2 H RBC 2.87 L Hgb 7.8 L Hct 23.5 L MCV 82 L MCH 27 L MCHC Plt Count Lymph % (Auto) Lymph # [place] # Seg Neutrophils % Seg Neuts % (Manual) Lymphocytes % (Manual) Monocytes % (Manual) Seg Neutrophils # Seg Neutrophils # Man Lymphocytes # (Manual) Monocytes # (Manual) Thrombin Time ABG pH ABG pO2 ABG O2 Saturation ABG Base Excess ABG Hemoglobin Sodium Potassium Chloride Carbon Dioxide BUN 30 H Creatinine Glucose 149 H POC Glucose 110 H Lactic Acid Calcium Phosphorus Total Creatine Kinase Troponin T Total Protein Albumin Cholesterol LDL Cholesterol Direct Ur Specific [place] Urine WBC (Auto) Urine Creatinine 03/29/19 03/29/19 03/29/19 12:36 13:40 17:42 WBC RBC Hgb Hct MCV MCH MCHC Plt Count Lymph % (Auto) Lymph # [place] # Seg Neutrophils % Seg Neuts % (Manual) Lymphocytes % (Manual) Monocytes % (Manual) Seg Neutrophils # Seg Neutrophils # Man Lymphocytes # (Manual) Monocytes # (Manual) Thrombin Time ABG pH ABG pO2 ABG O2 Saturation ABG Base Excess ABG Hemoglobin 7.6 L Sodium Potassium Chloride Carbon Dioxide BUN Creatinine Glucose POC Glucose 164 H 168 H Lactic Acid Calcium Phosphorus Total Creatine Kinase Troponin T Total Protein Albumin Cholesterol LDL Cholesterol Direct Ur Specific [place] Urine WBC (Auto) Urine Creatinine 03/29/19 03/30/19 03/30/19 23:42 05:37 05:54 WBC RBC Hgb Hct MCV MCH MCHC Plt Count Lymph % (Auto) Lymph # [place] # Seg Neutrophils % Seg Neuts % (Manual) Lymphocytes % (Manual) Monocytes % (Manual) Seg Neutrophils # Seg Neutrophils # Man Lymphocytes # (Manual) Monocytes # (Manual) Thrombin Time ABG pH ABG pO2 ABG O2 Saturation ABG Base Excess ABG Hemoglobin Sodium Potassium Chloride Carbon Dioxide BUN 28 H Creatinine Glucose 134 H POC Glucose 115 H 124 H Lactic Acid Calcium Phosphorus Total Creatine Kinase Troponin T Total Protein Albumin Cholesterol LDL Cholesterol Direct Ur Specific [place] Urine WBC (Auto) Urine Creatinine 03/30/19 03/30/19 03/30/19 05:54 13:14 16:49 WBC RBC 2.80 L Hgb 8.0 L Hct 23.0 L MCV 82 L MCH MCHC 35 H Plt Count Lymph % (Auto) Lymph # [place] # Seg Neutrophils % Seg Neuts % (Manual) Lymphocytes % (Manual) Monocytes % (Manual) Seg Neutrophils # Seg Neutrophils # Man Lymphocytes # (Manual) Monocytes # (Manual) Thrombin Time ABG pH ABG pO2 ABG O2 Saturation ABG Base Excess ABG Hemoglobin Sodium Potassium Chloride Carbon Dioxide BUN Creatinine Glucose POC Glucose 148 H 140 H Lactic Acid Calcium Phosphorus Total Creatine Kinase Troponin T Total Protein Albumin Cholesterol LDL Cholesterol Direct Ur Specific [place] Urine WBC (Auto) Urine Creatinine 03/31/19 03/31/19 03/31/19 00:17 03:53 03:53 WBC 11.3 H RBC 3.24 L Hgb 8.8 L Hct 26.8 L MCV 83 L MCH 27 L MCHC Plt Count 506 H Lymph % (Auto) Lymph # [place] # Seg Neutrophils % Seg Neuts % (Manual) Lymphocytes % (Manual) Monocytes % (Manual) Seg Neutrophils # Seg Neutrophils # Man Lymphocytes # (Manual) Monocytes # (Manual) Thrombin Time ABG pH ABG pO2 ABG O2 Saturation ABG Base Excess ABG Hemoglobin Sodium Potassium Chloride Carbon Dioxide BUN 24 H Creatinine Glucose 128 H POC Glucose 135 H Lactic Acid Calcium Phosphorus Total Creatine Kinase Troponin T Total Protein Albumin Cholesterol LDL Cholesterol Direct Ur Specific [place] Urine WBC (Auto) Urine Creatinine 03/31/19 05:27 WBC RBC Hgb Hct MCV MCH MCHC Plt Count Lymph % (Auto) Lymph # [place] # Seg Neutrophils % Seg Neuts % (Manual) Lymphocytes % (Manual) Monocytes % (Manual) Seg Neutrophils # Seg Neutrophils # Man Lymphocytes # (Manual) Monocytes # (Manual) Thrombin Time ABG pH ABG pO2 ABG O2 Saturation ABG Base Excess ABG Hemoglobin Sodium Potassium Chloride Carbon Dioxide BUN Creatinine Glucose POC Glucose 133 H Lactic Acid Calcium Phosphorus Total Creatine Kinase Troponin T Total Protein Albumin Cholesterol LDL Cholesterol Direct Ur Specific [place] Urine WBC (Auto) Urine Creatinine Allied health notes reviewed: nursing
--- NOTE | 2019-03-31 12:21 | Progress Note ---
Assessment and Plan Assessment and plan: Sepsis. Etiology potentially aseptic meningitis v/s encephalitis. Patient now with new fevers and diarrhea with etiology possibly from C.difficile infection. ID to treat empirically with p.o. vancomycin. Patient also with GPC bacteremia 1/4 bottles. Continue IV vancomycin per ID recommendation and follow-up blood culture results. GPC bacteremia. As above. Meningeal encephalitis. CSF with mild pleocytosis, not consistent with acute bacterial meningitis. MRI brain without contrast was unremarkable for acute etiology. CSF HSV 1,2, VZV and Enterovirus PCRs: negative. CSF pleocytosis was probably post-ictal in etiology. Toxic encephalopathy. Etiology secondary to above. Acute kidney injury. Continue IV fluid hydration. Monitor creatinine. MSSA UTI. Patient completed empiric course of antibiotics. Diarrhea. Continue PO vancomycin. Hyperlipidemia. Continue statin. Diabetes mellitus type 2. Continue Accu-Cheks and sliding scale insulin. Acute onset seizure, Patient was started on keppra EEG showed + for seizure, neurology reconsulted DVT prophylaxis SCD to bilateral lower extremities while in bed, prophylactic heparin Disposition. Transfer to telemetry. History Interval history: 68-year-old male with a past medical history of hypertension, diabetes, obesity admitted after being found down. Hospitalist Physical - Constitutional Vitals: Temp Pulse Resp BP Pulse Ox 98.0 F 75 15 159/65 97 03/31/19 08:00 03/31/19 11:00 03/31/19 11:00 03/31/19 11:00 03/31/19 11:00 General appearance: Present: other (intubated and sedated) - EENT Eyes: Present: PERRL, EOM intact ENT: hearing intact, clear oral mucosa, dentition normal - Neck Neck: Present: supple, normal ROM - Respiratory Respiratory effort: normal Respiratory: bilateral: CTA - Cardiovascular Rhythm: regular Heart Sounds: Present: S1 & S2. Absent: gallop, rub - Extremities Extremities: no ischemia, No edema, Full ROM - Abdominal General gastrointestinal: soft, non-tender, non-distended, normal bowel sounds - Integumentary Integumentary: Present: clear, warm, dry - Neurologic Neurologic: CNII-XII intact, moves all extremities Results - Labs CBC & Chem 7: 03/31/19 03:53 03/31/19 03:53 Labs: Laboratory Last Values WBC 11.3 K/mm3 (4.5-11.0) H 03/31/19 03:53 RBC 3.24 M/mm3 (3.65-5.03) L 03/31/19 03:53 Hgb 8.8 gm/dl (11.8-15.2) L 03/31/19 03:53 Hct 26.8 % (35.5-45.6) L 03/31/19 03:53 MCV 83 fl (84-94) L 03/31/19 03:53 MCH 27 pg (28-32) L 03/31/19 03:53 MCHC 33 % (32-34) 03/31/19 03:53 RDW 14.2 % (13.2-15.2) 03/31/19 03:53 Plt Count 506 K/mm3 (140-440) H 03/31/19 03:53 Lymph % (Auto) 6.3 % (13.4-35.0) L 03/26/19 04:49 [place]ley % (Auto) 4.5 % (0.0-7.3) 03/26/19 04:49 Eos % (Auto) 0.4 % (0.0-4.3) 03/26/19 04:49 Baso % (Auto) 0.6 % (0.0-1.8) 03/26/19 04:49 Lymph # 0.8 K/mm3 (1.2-5.4) L 03/26/19 04:49 Donley # 0.6 K/mm3 (0.0-0.8) 03/26/19 04:49 Eos # 0.1 K/mm3 (0.0-0.4) 03/26/19 04:49 Baso # 0.1 K/mm3 (0.0-0.1) 03/26/19 04:49 Add Manual Diff Complete 03/28/19 04:03 Total Counted 100 03/28/19 04:03 Seg Neutrophils % 88.2 % (40.0-70.0) H 03/26/19 04:49 Seg Neuts % (Manual) 85.0 % (40.0-70.0) H 03/28/19 04:03 Band Neutrophils % 3.0 % 03/28/19 04:03 Lymphocytes % (Manual) 6.0 % (13.4-35.0) L 03/28/19 04:03 Reactive Lymphs % (Man) 0 % 03/28/19 04:03 Monocytes % (Manual) 5.0 % (0.0-7.3) 03/28/19 04:03 Eosinophils % (Manual) 1.0 % (0.0-4.3) 03/28/19 04:03 Basophils % (Manual) 0 % (0.0-1.8) 03/28/19 04:03 Metamyelocytes % 0 % 03/28/19 04:03 Myelocytes % 0 % 03/28/19 04:03 Promyelocytes % 0 % 03/28/19 04:03 Blast Cells % 0 % 03/28/19 04:03 Nucleated RBC % Not Reportable 03/28/19 04:03 Seg Neutrophils # 10.9 K/mm3 (1.8-7.7) H 03/26/19 04:49 Seg Neutrophils # Man 13.0 K/mm3 (1.8-7.7) H 03/28/19 04:03 Band Neutrophils # 0.5 K/mm3 03/28/19 04:03 Lymphocytes # (Manual) 0.9 K/mm3 (1.2-5.4) L 03/28/19 04:03 Abs React Lymphs (Man) 0.0 K/mm3 03/28/19 04:03 Monocytes # (Manual) 0.8 K/mm3 (0.0-0.8) 03/28/19 04:03 Eosinophils # (Manual) 0.2 K/mm3 (0.0-0.4) 03/28/19 04:03 Basophils # (Manual) 0.0 K/mm3 (0.0-0.1) 03/28/19 04:03 Metamyelocytes # 0.0 K/mm3 03/28/19 04:03 Myelocytes # 0.0 K/mm3 03/28/19 04:03 Promyelocytes # 0.0 K/mm3 03/28/19 04:03 Blast Cells # 0.0 K/mm3 03/28/19 04:03 Pathologist Review 03/18/19 14:17 WBC Morphology Not Reportable 03/28/19 04:03 Hypersegmented Neuts Not Reportable 03/28/19 04:03 Hyposegmented Neuts Not Reportable 03/28/19 04:03 Hypogranular Neuts Not Reportable 03/28/19 04:03 Smudge Cells Not Reportable 03/28/19 04:03 Toxic Granulation Not Reportable 03/28/19 04:03 Toxic Vacuolation Not Reportable 03/28/19 04:03 Dohle Bodies Not Reportable 03/28/19 04:03 Pelger-Huet Anomaly Not Reportable 03/28/19 04:03 Chelsi Rods Not Reportable 03/28/19 04:03 Platelet Estimate Consistent w auto 03/28/19 04:03 Clumped Platelets Not Reportable 03/28/19 04:03 Plt Clumps, EDTA Not Reportable 03/28/19 04:03 Large Platelets Not Reportable 03/28/19 04:03 Giant Platelets Not Reportable 03/28/19 04:03 Platelet Satelliting Not Reportable 03/28/19 04:03 Plt Morphology Comment Not Reportable 03/28/19 04:03 RBC Morphology Not Reportable 03/28/19 04:03 Dimorphic RBCs Not Reportable 03/28/19 04:03 Polychromasia Not Reportable 03/28/19 04:03 Hypochromasia Not Reportable 03/28/19 04:03 Poikilocytosis Not Reportable 03/28/19 04:03 Anisocytosis Not Reportable 03/28/19 04:03 Microcytosis Not Reportable 03/28/19 04:03 Macrocytosis Not Reportable 03/28/19 04:03 Spherocytes Not Reportable 03/28/19 04:03 Pappenheimer Bodies Not Reportable 03/28/19 04:03 Sickle Cells Not Reportable 03/28/19 04:03 Target Cells Not Reportable 03/28/19 04:03 Tear Drop Cells Not Reportable 03/28/19 04:03 Ovalocytes Not Reportable 03/28/19 04:03 Helmet Cells Not Reportable 03/28/19 04:03 [place] Bodies Not Reportable 03/28/19 04:03 [place] Rings Not Reportable 03/28/19 04:03 [place] Cells Not Reportable 03/28/19 04:03 Bite Cells Not Reportable 03/28/19 04:03 Crenated Cell Not Reportable 03/28/19 04:03 Elliptocytes Rare 03/28/19 04:03 Acanthocytes (Spur) Not Reportable 03/28/19 04:03 Rouleaux Not Reportable 03/28/19 04:03 Hemoglobin C Crystals Not Reportable 03/28/19 04:03 Schistocytes Not Reportable 03/28/19 04:03 Malaria parasites Not Reportable 03/28/19 04:03 Sharif Bodies Not Reportable 03/28/19 04:03 Hem Pathologist Commnt No 03/28/19 04:03 PT 14.4 Sec. (12.2-14.9) 03/18/19 14:17 INR 1.11 (0.87-1.13) 03/18/19 14:17 APTT 33.5 Sec. (24.2-36.6) 03/18/19 14:17 Thrombin Time 14.7 Sec. (15.1-19.6) L 03/18/19 14:17 ABG pH 7.444 pH Units (7.350-7.450) 03/29/19 13:40 ABG pCO2 35.5 mm Hg 03/29/19 13:40 ABG pO2 86.0 mm Hg (80.0-90.0) 03/29/19 13:40 ABG HCO3 23.8 mmol/L (20.0-26.0) 03/29/19 13:40 ABG O2 Saturation 97.2 % (95.0-99.0) 03/29/19 13:40 ABG O2 Content 10.4 (0.0-44) 03/29/19 13:40 ABG Base Excess -0.2 mmol/L (-2.0-3.0) 03/29/19 13:40 ABG Hemoglobin 7.6 gm/dl (14.0-18.0) L 03/29/19 13:40 ABG Carboxyhemoglobin 1.6 % (0.0-5.0) 03/29/19 13:40 ABG Methemoglobin 0.5 % (0.0-1.5) 03/29/19 13:40 Oxyhemoglobin 95.1 % (95.0-99.0) 03/29/19 13:40 FiO2 25 % 03/29/19 13:40 Sodium 141 mmol/L (137-145) 03/31/19 03:53 Potassium 3.8 mmol/L (3.6-5.0) 03/31/19 03:53 Chloride 105.0 mmol/L (98-107) 03/31/19 03:53 Carbon Dioxide 22 mmol/L (22-30) 03/31/19 03:53 Anion Gap 18 mmol/L 03/31/19 03:53 BUN 24 mg/dL (9-20) H 03/31/19 03:53 Creatinine 1.3 mg/dL (0.8-1.5) 03/31/19 03:53 Estimated GFR 55 ml/min 03/31/19 03:53 BUN/Creatinine Ratio 18 % 03/31/19 03:53 Glucose 128 mg/dL (75-100) H 03/31/19 03:53 POC Glucose 133 (70-105) H 03/31/19 05:27 Lactic Acid 1.70 mmol/L (0.7-2.0) 03/18/19 23:41 Calcium 9.2 mg/dL (8.4-10.2) 03/31/19 03:53 Phosphorus 3.10 mg/dL (2.5-4.5) 03/25/19 04:23 Magnesium 1.90 mg/dL (1.7-2.3) 03/21/19 04:07 Total Bilirubin 0.30 mg/dL (0.1-1.2) 03/19/19 02:56 AST 30 units/L (5-40) 03/19/19 02:56 ALT 17 units/L (7-56) 03/19/19 02:56 Alkaline Phosphatase 100 units/L (35-129) 03/19/19 02:56 Total Creatine Kinase 396 units/L (55-170) H 03/20/19 05:26 Troponin T 0.214 ng/mL (0.00-0.029) H* 03/20/19 15:23 Total Protein 5.9 g/dL (6.3-8.2) L 03/19/19 02:56 Albumin 2.9 g/dL (3.9-5) L 03/19/19 02:56 Albumin/Globulin Ratio 1.0 % 03/19/19 02:56 Triglycerides 127 mg/dL (2-149) 03/18/19 14:17 Cholesterol 264 mg/dL (50-199) H 03/18/19 14:17 LDL Cholesterol Direct 182 mg/dL (50-130) H 03/18/19 14:17 HDL Cholesterol 58 mg/dL (40-59) 03/18/19 14:17 Cholesterol/HDL Ratio 4.55 % 03/18/19 14:17 Urine Color Yellow (Yellow) 03/18/19 Unknown Urine Turbidity Cloudy (Clear) 03/18/19 Unknown Urine pH 5.0 (5.0-7.0) 03/18/19 Unknown Ur Specific [place] 1.046 (1.003-1.030) H 03/18/19 Unknown Urine Protein 30 mg/dl mg/dL (Negative) 03/18/19 Unknown Urine Glucose (UA) 50 mg/dL (Negative) 03/18/19 Unknown Urine Ketones Neg mg/dL (Negative) 03/18/19 Unknown Urine Blood Lg (Negative) 03/18/19 Unknown Urine Nitrite Neg (Negative) 03/18/19 Unknown Urine Bilirubin Neg (Negative) 03/18/19 Unknown Urine Urobilinogen < 2.0 mg/dL (<2.0) 03/18/19 Unknown Ur Leukocyte Esterase Mod (Negative) 03/18/19 Unknown Urine WBC (Auto) 23.0 /HPF (0.0-6.0) H 03/18/19 Unknown Urine RBC (Auto) 6.0 /HPF (0.0-6.0) 03/18/19 Unknown U Epithel Cells (Auto) < 1.0 /HPF (0-13.0) 03/18/19 Unknown Urine Mucus Few /HPF 03/18/19 Unknown Urine Creatinine 142.9 mg/dL (0.1-20.0) H 03/19/19 01:38 Urine Sodium 14 mmol/L 03/19/19 01:38 CSF Appearance Clear 03/19/19 14:10 CSF Color Colorless 03/19/19 14:10 CSF WBC 97 /mm3 (1-10) 03/19/19 14:10 CSF RBC 720 /mm3 (0-0) 03/19/19 14:10 CSF Seg Neutrophils 94.0 % (0-6) 03/19/19 14:10 CSF Lymphocytes % 0 % (40-80) 03/19/19 14:10 CSF Reactive Lymphs 0 % 03/19/19 14:10 CSF Monocytes % 6.0 % (15-45) 03/19/19 14:10 CSF Eosinophils % 0 % 03/19/19 14:10 CSF Basophils 0 % 03/19/19 14:10 CSF Pathologist Review C 03/19/19 14:10 CSF Glucose 108 mg/dL 03/19/19 14:10 CSF Total Protein 66 mg/dL 03/19/19 14:10 CSF VDRL Nonreactive (Nonreactive) 03/19/19 14:10 Random Vancomycin 4.1 ug/mL (0-40.0) 03/22/19 04:47 C. difficile Tox (PCR) Positive (Negative) 03/26/19 21:20 Enterovirus (PCR) Cmmt See scanned results 03/19/19 14:10 HSV I DNA PCR See scanned results 03/19/19 14:10 HSV II DNA PCR See scanned results 03/19/19 14:10 VZV (Qnt-PCR) See scanned results 03/19/19 14:10 Active Medications - Current Medications Current Medications: Generic Name Dose Route Start Last Admin Trade Name Freq PRN Reason Stop Dose Admin Acetaminophen 650 mg 03/21/19 10:29 03/26/19 01:37 Tylenol PO 650 mg Q4H PRN Administration Pain MILD(1-3)/Fever >100.5/ROSA Lipase/Protease/Amylase 1 each 03/19/19 15:17 Pancreaze 10,500 Unit FEEDTUBE PRN PRN For Clogged Feeding Tube Clonidine HCl 0.2 mg 03/22/19 12:00 03/29/19 11:07 Catapres-Tts Patch TD 0.2 mg Raymond MARTHA Administration Dextrose 0 ml 03/20/19 02:38 D50w (25gm) Syringe IV Q30MIN PRN Hypoglycemia Protocol Heparin Sodium (Porcine) 5,000 unit 03/18/19 22:00 03/31/19 11:50 Heparin SUB-Q 5,000 unit Q12HR MARTHA Administration Hydralazine HCl 10 mg 03/22/19 02:51 03/26/19 00:38 Apresoline IV 10 mg Q4H PRN Administration Hypertension Hydrophilic Ointment 1 applic 03/21/19 17:45 Vaseline Lip Therapy TP Q2HR PRN Dry Lips Sodium Chloride 1,000 mls @ 100 mls/hr 03/30/19 15:15 03/31/19 02:55 Nacl 0.9% 1000 Ml IV 04/01/19 01:14 100 mls/hr DIRECT MARTHA Administration Insulin Human Lispro 0 unit 03/20/19 06:00 03/31/19 06:05 Humalog SUB-Q Not Given Q6HR [facility] Protocol Levalbuterol HCl 0.63 mg 03/26/19 01:20 Xopenex IH Q8HRT PRN Shortness Of Breath Multi-Ingred Cream/Lotion/Oil/Oint 1 applic 03/21/19 17:45 Artificial Tears Ophth Oint OU Q4HR PRN Dry Eye(s) Scopolamine 1 each 03/26/19 14:00 03/29/19 15:45 Transderm-Scop TD 1 each Q3D MARTHA Administration Simple Syrup 15 ml 03/19/19 15:17 Simple Syrup FEEDTUBE PRN PRN Hypoglycemia Simple Syrup 30 ml 03/19/19 15:17 Simple Syrup FEEDTUBE PRN PRN Hypoglycemia Sodium Bicarbonate 325 mg 03/19/19 15:17 Sodium Bicarbonate FEEDTUBE PRN PRN For Clogged Feeding Tube Sodium Chloride 10 ml 03/18/19 22:00 03/31/19 11:51 Sodium Chloride Flush Syringe 10 Ml IV 10 ml BID MARTHA Administration Sodium Chloride 10 ml 03/18/19 17:32 Sodium Chloride Flush Syringe 10 Ml IV PRN PRN LINE FLUSH Vancomycin HCl 125 mg 03/27/19 13:00 03/31/19 06:06 Vancomycin Po PO 04/06/19 23:59 Not Given Q6HR [facility] Nutrition/Malnutrition Assess - Dietary Evaluation Nutrition/Malnutrition Findings: Nutrition Notes Start: 03/19/19 15:12 Freq: Status: Active Protocol: Document 03/31/19 11:20 MK (Rec: 03/31/19 11:21 [id number]) Co-Sign 03/31/19 11:20 LP Nutrition Notes Initial or Follow up Brief Note Subjective/Other Information Pt wating for speech eval. Nutrition Intervention Follow-Up By: 04/01/19 Additional Comments FU for speech eval.
--- NOTE | 2019-03-31 14:11 | Discharge Summary ---
Providers - Providers Date of Admission: 03/18/19 17:32 Date of discharge: 03/31/19 Attending physician: WILLIAM YBARRA 03/18/19 17:32 Consult to Physician [CONS] Routine Comment: Consulting Provider: DONNIE FLORES Physician Instructions: Reason For Exam: respiratory failure/on vent 03/18/19 21:11 Consult to Physician [CONS] Routine Comment: office notified @ 09:15- [facility] Consulting Provider: KYLIE HUDSON Physician Instructions: Reason For Exam: CRISTÓBAL 03/19/19 11:52 Consult to Physician [CONS] Routine Comment: Consulting Provider: LARRY SONG Physician Instructions: Reason For Exam: encephalopathy vs seizure 03/19/19 13:30 Consult to Physician [CONS] Routine Comment: Consulting Provider: ARIN MORSE Physician Instructions: Reason For Exam: sepsis 03/19/19 13:32 Consult to Dietitian/Nutrition [CONS] Routine Physician Instructions: Reason For Exam: Reason for Consult: Write/Manage Tube Feeding 03/21/19 17:45 Consult to Dietitian/Nutrition [CONS] Routine Physician Instructions: Reason For Exam: Reason for Consult: Evaluate nutritional intake 03/25/19 15:35 Consult to Physician [CONS] Routine Comment: Consulting Provider: ALLY DONALD Physician Instructions: Reason For Exam: AMS 03/25/19 23:02 Occupational Therapy Evaluate and Treat [CONS] Routine Comment: Reason For Exam: Contracture prevention Physical Therapy Evaluation and Treat [CONS] Routine Comment: Reason For Exam: deconditioning 03/30/19 08:21 Speech Therapy Evaluation and Treat [CONS] Stat Reason For Exam: S/p intubation Primary care physician: HOSPITAL TECHNICIAN Hospitalization Reason for admission: AMS Condition: Stable Hospital course: 68-year-old male with a past medical history of hypertension, diabetes, obesity admitted to the hospital for unresponsiveness and altered mental status. Prior to admission the patient was in his usual state of health, however he was found down and unresponsive the day of admission. On admission, patient was found to have sepsis, AKA, acidosis, hypoxemic respiratory failure and encephalopathy. His acute hypoxemic respiratory failure requiring intubation in the emergency room and was placed on vent support. Also, of note, patient had a a witnessed seizure in the ER. The patient was seen by neurology in consultation and was noted to have 2 partial seizures seen on EEG. Patient was then started on Keppra. Repeat EEG showed improvement with no seizures on second EEG. His encephalopathy was felt to be secondary to sepsis/acute kidney injury and underlying seizure. MRI brain did not show any acute changes and CSF studies were negative. Patient remained on mechanical ventilation until 03/28/2019 in which she was extubated. Patient was seen by infectious disease and pulmonary as well in consultation. There was some question of possible gram-positive cocci bacteremia but later felt to be a contaminant. ID felt that the initial sepsis with acute encephalopathy was likely related to aseptic meningitis versus encephalitis. CSF HSV 1,2, VZV and Enterovirus PCRs: negative. CSF pleocytosis was probably post-ictal in etiology. Patient was later transferred to the floor but did develop some diarrhea. Therefore, patient was started empirically on p.o. vancomycin 125 mg 4 times daily with stop date 04/06/2019. Also of note patient had MSSA in the urine which was felt not to be a common uropathogen. Blood cultures were negative so bacteremic spillover was less likely. TTE images of poor quality. Could also be a skin contaminant. Completed empiric course of abx. Other complications during hospital stay included acute kidney injury which was felt to be secondary to vasomotor nephropathy and ATN/sepsis. Renal ultrasound was negative for hydronephrosis. Renal function improved to 1.3 from 2.7 on admission. Dedicated discharge time 35 minutes. Disposition: DC/TX-[id number] ANOTHER TYPE [facility] Time spent for discharge: 35 - Discharge Diagnoses (1) CRISTÓBAL (acute kidney injury) Status: Acute (2) Acute encephalopathy Status: Acute (3) Acute renal failure Status: Acute (4) Acute respiratory failure with hypoxia Status: Acute (5) HLD (hyperlipidemia) Status: Acute Qualifiers: Hyperlipidemia type: mixed hyperlipidemia Qualified Code(s): E78.2 - Mixed hyperlipidemia (6) Sepsis Status: Acute Qualifiers: Sepsis acute organ dysfunction status: with acute organ dysfunction Severe sepsis acute organ dysfunction type: acute renal failure Core Measure Documentation - Palliative Care Palliative Care/ Comfort Measures: Not Applicable - Core Measures Any of the following diagnoses?: none Exam - Constitutional Vitals: Temp Pulse Resp BP Pulse Ox 98.0 F 75 15 159/65 97 03/31/19 08:00 03/31/19 11:00 03/31/19 11:00 03/31/19 11:00 03/31/19 11:00 General appearance: Present: no acute distress, well-nourished - EENT Eyes: Present: PERRL ENT: hearing intact, clear oral mucosa - Neck Neck: Present: supple, normal ROM - Respiratory Respiratory effort: normal Respiratory: bilateral: CTA - Cardiovascular Heart Sounds: Present: S1 & S2. Absent: rub, click - Extremities Extremities: pulses symmetrical, No edema Peripheral Pulses: within normal limits - Abdominal General gastrointestinal: Present: soft, non-tender, non-distended, normal bowel sounds Male genitourinary: Present: normal - Integumentary Integumentary: Present: clear, warm, dry - Musculoskeletal Musculoskeletal: gait normal, strength equal bilaterally - Psychiatric Psychiatric: appropriate mood/affect, intact judgment & insight - Neurologic Neurologic: CNII-XII intact, moves all extremities Plan Activity: advance as tolerated Weight Bearing Status: Weight Bear as Tolerated Follow up with: PRIMARY CAREMD [Primary Care Provider] - 3-5 Days DONNIE FLORES MD [Staff Physician] - 7 Days KYLIE HUDSON MD [Staff Physician] - 7 Days Prescriptions: Vancomycin 125 mg PO Q6HR 7 Days oralsyr
== END 2019-03-31 17:18 | disposition short-term general hospital (02) | DRG 870 ==
LOC: ED 14:00 → CC1 17:32 → 4A 03-31 12:20
PROVIDERS: ADMIT Internal Medicine; ATTEND Hospitalist
PROC: 5A1955Z Respiratory Ventilation, Greater than 96 Consecutive Hours (ICD-10-PCS; principal; 2019-03-18)
PROC: 0BH17EZ Insertion of Endotracheal Airway into Trachea, Via Natural or Artificial Opening (ICD-10-PCS; 2019-03-18)
PROC: 009U3ZZ Drainage of Spinal Canal, Percutaneous Approach (ICD-10-PCS; 2019-03-20)
PROC: B01B1ZZ Fluoroscopy of Spinal Cord using Low Osmolar Contrast (ICD-10-PCS; 2019-03-20)
PROC: 4A033R1 Measurement of Arterial Saturation, Peripheral, Percutaneous Approach (ICD-10-PCS; 2019-03-22)
DX: A41.89 Other specified sepsis (principal); G04.90 Encephalitis and encephalomyelitis, unspecified; N17.0 Acute kidney failure with tubular necrosis; J96.01 Acute respiratory failure with hypoxia; G92 Toxic encephalopathy; N39.0 Urinary tract infection, site not specified; M62.82 Rhabdomyolysis; R65.20 Severe sepsis without septic shock; I10 Essential (primary) hypertension; E11.9 Type 2 diabetes mellitus without complications; E78.2 Mixed hyperlipidemia; R56.9 Unspecified convulsions; E66.9 Obesity, unspecified; E83.39 Other disorders of phosphorus metabolism; E87.6 Hypokalemia; M19.90 Unspecified osteoarthritis, unspecified site; Z68.32 Body mass index [BMI] 32.0-32.9, adult; Z83.3 Family history of diabetes mellitus; Z82.49 Family history of ischemic heart disease and other diseases of the circulatory system
CPT/HCPCS: 36415; 36600; 62270; 70450; 70496; 70498; 70551; 71045; 74018; 76770; 77003; 80048; 80053; 80061; 80202; 81001; 82140; 82550; 82570; 82803; 82947; 82962; 83735; 84100; 84160; 84300; 84484; 85007; 85025; 85027; 85610; 85670; 85730; 86592; 87040; 87070; 87076; 87086; 87116; 87186; 87205; 87493; 87498; 87799; 89051; 93005; 93010; 93306; 94002; 94003; 94640; 94760; 95819; G0378; J0133; J0290; J0360; J0692; J0696; J1644; J1815; J1953; J1956; J2060; J2704; J3370; J7030; J7040; J7050; Q9967